=== PATIENT | female | born 1985 | race African-American/Black ===

== ENCOUNTER 2017-06-21 00:33 | Inpatient (IN) | payer MEDICAID, OTHER ==
[~2017-06-21] VITALS: Ht 165.1 cm; Wt 85.7 kg
--- NOTE | 2017-06-21 02:46 | NUR ---
31 Y/O FEMALE PLACED IN BED 12 C/O RIGHT LEG SWELLING. PT SEEN BY .
[2017-06-21] MEDS ORDERED: MORPHINE SULFATE INJ 2 MG/ML DISP.SYRIN IV ONE (03:00)
[2017-06-21] MEDS ORDERED: ONDANSETRON HCL/PF 4 MG/2 ML VIAL IVP ONE (03:00)
[2017-06-21] MEDS ORDERED: MORPHINE SULFATE INJ 4 MG/ML DISP.SYRIN ONE (03:08)
[2017-06-21] MEDS ORDERED: ONDANSETRON HCL/PF 4 MG/2 ML VIAL ONE (03:08)
[2017-06-21 03:13] LABS: BASOPHILS # (AUTO) 0.1 /CMM (0.0-0.2); BASOPHILS % (AUTO) 1.2 % (0.0-2.0); EOSINOPHILS # (AUTO) 0.6 /CMM (0.0-0.7); EOSINOPHILS % (AUTO) 11.2 % (0.0-6.0); HEMATOCRIT 21 % (33-45); HEMOGLOBIN 7.2 g/dL (11.5-14.8); LYMPHOCYTES # (AUTO) 0.9 /CMM (0.8-4.8); MEAN CORPUSCULAR HEMOGLOBIN 31 PG (26.0-33.0); MEAN CORPUSCULAR HGB CONC 34 g/dl (31.0-36.0); MEAN CORPUSCULAR VOLUME 91 fL (82-100); MONOCYTES # (AUTO) 0.6 /CMM (0.1-1.30); MONOCYTES % (AUTO) 11.5 % (2.0-12.0); NEUTROPHILS # (AUTO) 3.2 /CMM (1.8-8.9); NEUTROPHILS % (AUTO) 60.1 % (43.0-81.0); PLATELET COUNT (AUTO) 113 /CMM (150-450); RDW COEFFICIENT OF VARIATION 16.8 (11.5-15.0); WHITE BLOOD COUNT (AUTO) 5.4 K/uL (4.3-11.0)
[2017-06-21 03:29] LABS: INR 0.99 (0.87-1.13)
[2017-06-21 03:31] LABS: TROPONIN I < 0.017 ng/mL (0.00-0.056)
[2017-06-21 03:36] LABS: ALANINE AMINOTRANSFERASE 12 U/L (12-78); ALBUMIN 3.2 g/dL (3.4-5.0); ALKALINE PHOSPHATASE 62 U/L (46-116); ASPARTATE AMINOTRANSFERASE 16 U/L (15-37); B-TYPE NATRIURETIC PEPTIDE 6103 PG/ML (0-125); BILIRUBIN,TOTAL 0.2 mg/dL (0.2-1.0); CALCIUM, SERUM 8.1 mg/dL (8.5-10.1); CARBON DIOXIDE 24 mmol/L (21-32); CHLORIDE 106 mmol/L (98-107); GLUCOSE 88 mg/dL (74-106); POTASSIUM 5.3 mmol/L (3.5-5.1); SODIUM SERUM 140 mmol/L (136-145); TOTAL PROTEIN, SERUM 7.1 g/dL (6.4-8.2); UREA NITROGEN, BLOOD 71 mg/dL (7-18)
[2017-06-21 03:38] LABS: CREATININE 9.9 mg/dL (0.6-1.3)
[2017-06-21] MEDS ORDERED: HYDROMORPHONE 1 MG/1 ML DISP.SYRIN IV ONE (04:00)
[2017-06-21] MEDS ORDERED: HYDROMORPHONE INJ 2 MG/ML DISP.SYRIN ONE ×2 (04:03→10:52)
--- NOTE | 2017-06-21 04:09 | NUR ---
H/L PLACED IN RIGHT A/C. BLOOD DRAWN AND SENT. PT MEDICATED FOR PAIN
--- NOTE | 2017-06-21 04:10 | NUR ---
DURING US PROCEDUR, PT C/O PAIN IN RIGHT LEG. PT REMEDICATED WTH IV DILAUDID. WAIT A LITTLE BIT PRIOR TO RESUMING US.
--- NOTE | 2017-06-21 04:33 | NUR ---
PT OBTANED HOME MEDICATIONS FROM SO. PT IN RESTROOM OBTAINING A URINE SAMPLE FOR US.
[2017-06-21] MEDS ORDERED: hydrALAZINE HCL IV 20 MG VIAL ONE (04:57)
[2017-06-21] MEDS ORDERED: hydrALAZINE HCL IV 20 MG VIAL IV ONE (05:00)
[2017-06-21] MEDS ORDERED: hydrALAZINE HCL IV 20 MG VIAL IV PRN ×2 (06:00→12:00)
[2017-06-21] MEDS ORDERED: MAGNESIUM HYDROXIDE 30 ML UDC PO PRN ×2 (06:00→12:00)
[2017-06-21] MEDS ORDERED: ACETAMINOPHEN 325 MG TABLET PO PRN ×2 (06:00→12:00)
[2017-06-21] MEDS ORDERED: ONDANSETRON HCL/PF 4 MG/2 ML VIAL IVP PRN ×2 (06:00→18:00)
[2017-06-21] MEDS ORDERED: MAG HYDROX/AL HYDROX/SIMETH 30 ML UDC PO PRN ×2 (06:00→18:00)
[2017-06-21] MEDS ORDERED: ZOLPIDEM TARTRATE 5 MG TABLET PO PRN ×2 (06:00→12:00)
[2017-06-21] MEDS ORDERED: HYDROMORPHONE INJ 2 MG/ML DISP.SYRIN IV PRN (06:00)
[2017-06-21] MEDS ORDERED: Z GUARD REMEDY 2 OZ OINT TP PRN ×2 (06:00→12:00)
[2017-06-21] MEDS ORDERED: HYDROCODONE/APAP 5/325MG 1 EACH TABLET PO PRN ×2 (06:00→12:00)
[2017-06-21] MEDS ORDERED: TOPI200T PO (08:06)
[2017-06-21] MEDS ORDERED: HYDR-4077 PO (08:06)
[2017-06-21] MEDS ORDERED: ASPI-1152 PO (08:06)
[2017-06-21] MEDS ORDERED: LOSA25TA13 PO (08:06)
[2017-06-21] MEDS ORDERED: APIX2.5T PO (08:06)
[2017-06-21] MEDS ORDERED: CALC667C6 PO (08:06)
[2017-06-21] MEDS ORDERED: CARV25TA PO (08:06)
[2017-06-21] MEDS ORDERED: CITA20TA11 PO (08:06)
[2017-06-21] MEDS ORDERED: GABA-532 PO (08:06)
[2017-06-21] MEDS ORDERED: CLON0.2T PO (08:06)
--- NOTE | 2017-06-21 08:15 | NUR ---
BLOOD TRANSFUSION STARTED, BLOOD VERIFIED WITH 2 RN'S. CONSENT SIGNED AND PLACED IN CHART. VITALS TAKEN PRIOR TO ADMINISTRATION. REMAINS STABLE. WILL CONTINUE TO MONITOR.
[2017-06-21] MEDS ORDERED: FUROSEMIDE 40 MG/4 ML VIAL IV SCH ×2 (09:00→12:00)
--- NOTE | 2017-06-21 11:00 | NUR ---
BLOOD TRANSFUSION COMPLETED, NO ADVERSE REACTIONS NOTED. VITALS REMAIN STABLE. PAIN MEDICATION GIVEN PER MD ORDERS
[2017-06-21 11:45] VITALS: BP 146/87
--- NOTE | 2017-06-21 11:45 | NUR ---
REPORT GIVEN TO BRANDON [address]RE[address] FOR FRANSICO UPON ADMISSION.
--- NOTE | 2017-06-21 11:50 | NUR ---
PATIENT TRANSPORTED TO [facility] VIA ACLS PROTOCOL. RNBRANDON TO PROVIDE FRANSICO.
--- NOTE | 2017-06-21 12:00 | NUR ---
MS RN RECEIVED A NEW ADMISSION FROM ER, 31 YEAR OLD FEMALE CAME IN W/ CC OF RIGHT LEG PAIN, AWAKE,ALERT,ORIENTED X4,LUNGS ARE CLEAR,ABDOMEN SOFT,POSITIVE BOWEL SOUNDS, RIGHT LEG SWOLLEN. WILL MONITOR PATIENT.
[2017-06-21] MEDS ORDERED: NITROGLYCERIN PACKET 1 GM PACKET TOP SCH ×2 (13:00)
--- NOTE | 2017-06-21 13:00 | NUR ---
MS STREET LUNCH SERVED W/ DUE MEDS GIVEN,TOLERATED WELL.
--- NOTE | 2017-06-21 15:00 | NUR ---
MS RN WAS SEEN BY MIMI Juárez/ TIMOTEO TO DC DILAUDID, PATIENT IS CRYING, WANTS TO LEAVE AMA.
--- NOTE | 2017-06-21 15:30 | NUR ---
MS RN PATIENT WENT OUT FROM THE ROOM, READY TO GO HOME, REFUSED TO SIGN AMA PAPERS, ACCORDING TO HER, SHE DOES NOTE WANT TO GO AMA, BUT CARMELA TOLD HER THAT HE CAN NOT DO ANYTHING ABOUT HER CONDITION PER PATIENT.
--- NOTE | 2017-06-21 15:35 | NUR ---
MS RN PATIENT WENT HOME ACCOMPANIED BY FAMILY MEMBER, IV HEPLOCK REMOVED, WENT HOME WALKING, NO DISTRESS NOTED,ALL NEEDS ATTENDED.
[2017-06-21] MEDS ORDERED: HYDROCODONE/APAP 10/325MG 1 EA TABLET PO PRN (16:00)
[2017-06-21] MEDS ORDERED: APIXABAN 5 MG TABLET PO SCH (17:00)
== END 2017-06-21 15:49 | disposition left against medical advice (07) | DRG 197 ==
LOC: ER 00:38 → TELE1 12:18
PROVIDERS: ADMIT Internal Medicine; ATTEND Internal Medicine
DX: I82.411 Acute embolism and thrombosis of right femoral vein (principal); I13.2 Hypertensive heart and chronic kidney disease with heart failure and with stage 5 chronic kidney disease, or end stage renal disease; N18.6 End stage renal disease; D69.6 Thrombocytopenia, unspecified; E44.1 Mild protein-calorie malnutrition; Z91.19 Patient's noncompliance with other medical treatment and regimen; E66.9 Obesity, unspecified; G51.0 Bell's palsy; J45.909 Unspecified asthma, uncomplicated; Z76.5 Malingerer [conscious simulation]; Z86.718 Personal history of other venous thrombosis and embolism; Z99.2 Dependence on renal dialysis; Z88.1 Allergy status to other antibiotic agents; I50.9 Heart failure, unspecified; D63.8 Anemia in other chronic diseases classified elsewhere
CPT/HCPCS: 36415; 71045-TC; 80048-TC; 80076-TC; 83605-TC; 83880; 84484-TC; 85025-TC; 85730-TC; 86850-TC; 86921-TC; 87040-TC; 87081-TC; 93970-TC; A4606; J0360; J1170; J2270; J2405; J7050; P9016-BL; Z7610

== ENCOUNTER 2017-08-06 04:42 | Emergency (ER) | payer MEDICAID ==
[~2017-08-06] VITALS: Ht 165.1 cm; Wt 102.1 kg
[~2017-08-06 04:42] MED LIST: APIX2.5T PO; ASPI-1152 PO; CALC667C6 PO; CARV25TA PO; CITA20TA11 PO; CLON0.2T PO; GABA-532 PO; HYDR-4077 PO; LOSA25TA13 PO; TOPI200T PO
--- NOTE | 2017-08-06 05:00 | NUR ---
PT CAME FROM HOME C/O CP MIDSTERNAL/NONRADIATING X 2 DAYS, A/O X 3, BREATHING EVEN/UNLABORED, NSR ON INSTALLER INSPECTOR FINAL, SKIN WARM/DRY DIALYSIS PORT TO LLQ, MEAGAN WOUND INTACT/NONINFILTRATED,
[2017-08-06] MEDS ORDERED: ENOXAPARIN SODIUM 60 MG/0.6 ML DISP.SYRIN SQ ONE (05:30)
[2017-08-06] MEDS ORDERED: NITROGLYCERIN 0.4 MG/TAB BOTTLE SL ONE (05:30)
[2017-08-06] MEDS ORDERED: oxyCODONE/APAP (5/325 MG) 1 UDTAB TABLET PO ONE (05:30)
[2017-08-06] MEDS ORDERED: ONDANSETRON HCL/PF - ER 4 MG/2 ML VIAL IV ONE (05:30)
[2017-08-06] MEDS ORDERED: ASPIRIN 81 MG TAB.CHEW PO ONE (05:30)
[2017-08-06] MEDS ORDERED: ONDANSETRON HCL/PF 4 MG/2 ML VIAL ONE (05:30)
[2017-08-06] MEDS ORDERED: NITROGLYCERIN PACKET 1 GM PACKET TD ONE (05:30)
[2017-08-06] MEDS ORDERED: ENOXAPARIN SODIUM 80 MG/0.8 ML DISP.SYRIN SQ ONE (05:30)
[2017-08-06] MEDS ORDERED: ENOXAPARIN SODIUM 40 MG/0.4 ML DISP.SYRIN SQ ONE (05:30)
[2017-08-06] MEDS ORDERED: NITROGLYCERIN PACKET 1 GM PACKET ONE (05:31)
[2017-08-06] MEDS ORDERED: NITROGLYCERIN 0.4 MG/TAB BOTTLE ONE (05:31)
[2017-08-06] MEDS ORDERED: oxyCODONE/APAP (5/325 MG) 1 UDTAB TABLET ONE (05:31)
[2017-08-06] MEDS ORDERED: ASPIRIN 81 MG TAB.CHEW ONE (05:32)
[2017-08-06 05:40] LABS: BASOPHILS % (AUTO) 0.6 % (0.0-2.0); EOSINOPHILS # (AUTO) 0.7 /CMM (0.0-0.7); EOSINOPHILS % (AUTO) 8.8 % (0.0-6.0); HEMATOCRIT 22 % (33-45); HEMOGLOBIN 7.4 g/dL (11.5-14.8); LYMPHOCYTES % (AUTO) 13.2 % (20.0-44.0); MEAN CORPUSCULAR HEMOGLOBIN 31 PG (26.0-33.0); MEAN CORPUSCULAR HGB CONC 34 g/dl (31.0-36.0); MEAN CORPUSCULAR VOLUME 92 fL (82-100); MONOCYTES # (AUTO) 0.7 /CMM (0.1-1.30); MONOCYTES % (AUTO) 9.1 % (2.0-12.0); NEUTROPHILS # (AUTO) 5.2 /CMM (1.8-8.9); NEUTROPHILS % (AUTO) 68.3 % (43.0-81.0); PLATELET COUNT (AUTO) 152 /CMM (150-450); RDW COEFFICIENT OF VARIATION 16.6 (11.5-15.0); RED BLOOD CELL COUNT(AUTO) 2.42 MIL/uL (4.0-5.2); WHITE BLOOD COUNT (AUTO) 7.6 K/uL (4.3-11.0)
[2017-08-06 05:56] LABS: CARBON DIOXIDE 17 mmol/L (21-32); CHLORIDE 108 mmol/L (98-107); GLUCOSE 90 mg/dL (74-106); POTASSIUM 4.1 mmol/L (3.5-5.1); SODIUM SERUM 144 mmol/L (136-145)
[2017-08-06 05:58] LABS: CALCIUM, SERUM 5.8 mg/dL (8.5-10.1)
[2017-08-06 05:59] LABS: CREATININE 13.2 mg/dL (0.6-1.3); TROPONIN I < 0.017 ng/mL (0.00-0.056); UREA NITROGEN, BLOOD 111 mg/dL (7-18)
--- NOTE | 2017-08-06 06:01 | NUR ---
RECEIVED CRITICAL LAB VALUES FROM LAB. CLACIUM 5.8, BUN 111, CREATININE 13.2
[2017-08-06 06:05] LABS: ALANINE AMINOTRANSFERASE 30 U/L (12-78); ALBUMIN 3.4 g/dL (3.4-5.0); ALKALINE PHOSPHATASE 56 U/L (46-116); ASPARTATE AMINOTRANSFERASE 19 U/L (15-37); BILIRUBIN,DIRECT 0.1 mg/dL (0.0-0.2); BILIRUBIN,TOTAL 0.3 mg/dL (0.2-1.0)
[2017-08-06 06:06] LABS: B-TYPE NATRIURETIC PEPTIDE 11394 PG/ML (0-125); INR 1.02 (0.87-1.13); TOTAL PROTEIN, SERUM 7.6 g/dL (6.4-8.2)
--- NOTE | 2017-08-06 06:14 | NUR ---
US BEDSDIE AT THIS TIME
[2017-08-06 06:26] LABS: D-DIMER 2.99 mg/L(FEU (0.17-0.50)
--- NOTE | 2017-08-06 08:44 | NUR ---
PATIENT WAS PICKED UP BY CASSIDY FOR PROCEDURE
--- NOTE | 2017-08-06 09:37 | NUR ---
PT IS BACK TO ROOM. VSS
[2017-08-06 13:19] VITALS: BP 129/77
--- NOTE | 2017-08-06 13:19 | NUR ---
Patient discharged to home in stable condition. Written and verbal after care instructions given. Patient verbalizes understanding of instruction.IV removed. Catheter intact and site benign. Pressure and 4x4 applied to site. No bleeding noted.
== END 2017-08-06 13:19 | disposition home or self-care (01) ==
LOC: ER 04:43
DX: R07.9 Chest pain, unspecified (principal); G89.4 Chronic pain syndrome; I12.0 Hypertensive chronic kidney disease with stage 5 chronic kidney disease or end stage renal disease; N18.6 End stage renal disease; D64.9 Anemia, unspecified; J18.9 Pneumonia, unspecified organism; J45.909 Unspecified asthma, uncomplicated; Y95 Nosocomial condition; Z76.5 Malingerer [conscious simulation]; Z79.01 Long term (current) use of anticoagulants; Z79.82 Long term (current) use of aspirin; Z86.718 Personal history of other venous thrombosis and embolism; Z88.1 Allergy status to other antibiotic agents; Z99.2 Dependence on renal dialysis
CPT/HCPCS: 36415; 71045-TC; 78582; 80048-TC; 80076-TC; 83880; 84484-TC; 85025-TC; 85378-TC; 85730-TC; 93970-TC; 93971-TC; A4606; A9540; A9567; J1650; J2405; Z7610

== ENCOUNTER 2017-10-23 13:42 | Inpatient (IN) | payer MEDICAID ==
[~2017-10-23] VITALS: Ht 165.1 cm; Wt 101.6 kg
[~2017-10-23 13:42] MED LIST changes: -CITA20TA11 PO; +CITA20TA16 PO; -CLON0.2T PO
--- NOTE | 2017-10-23 13:45 | NUR ---
PRESENTS TO ER C/O DIFFUSE ABDOMINAL PAIN, RADIATES TO LOWER EXTREMITIES X 3 DAYS. A/OX 4, BREATHING EVEN AND UNLABORED. NO SOB, NAD, VITALS STABLE. SAFETY AND COMFORT MEASURES IN PLACE. AWAITING MD ORDERS.
--- NOTE | 2017-10-23 14:40 | NUR ---
NEW IV STARTED ON LEFT EJ, 20G, UNDER DR. TILLMAN SUPERVISION.
[2017-10-23 14:46] LABS: BASOPHILS % (AUTO) 0.2 % (0.0-2.0); EOSINOPHILS % (AUTO) 6.2 % (0.0-6.0); HEMATOCRIT 23 % (33-45); HEMOGLOBIN 7.8 g/dL (11.5-14.8); LYMPHOCYTES # (AUTO) 0.3 /CMM (0.8-4.8); LYMPHOCYTES % (AUTO) 5.4 % (20.0-44.0); MEAN CORPUSCULAR HGB CONC 34 g/dl (31.0-36.0); MEAN CORPUSCULAR VOLUME 89 fL (82-100); MONOCYTES # (AUTO) 0.5 /CMM (0.1-1.30); MONOCYTES % (AUTO) 9.8 % (2.0-12.0); NEUTROPHILS # (AUTO) 4.5 /CMM (1.8-8.9); NEUTROPHILS % (AUTO) 78.4 % (43.0-81.0); PLATELET COUNT (AUTO) 194 /CMM (150-450); RDW COEFFICIENT OF VARIATION 14.9 (11.5-15.0); WHITE BLOOD COUNT (AUTO) 5.6 K/uL (4.3-11.0)
[2017-10-23] MEDS ORDERED: HYDROCODONE/APAP 5/325MG 1 EACH TABLET ONE (14:48)
[2017-10-23 14:56] LABS: ALBUMIN 2.2 g/dL (3.4-5.0); BILIRUBIN,TOTAL 0.2 mg/dL (0.2-1.0); CALCIUM, SERUM 6.7 mg/dL (8.5-10.1); INR 0.91 (0.85-1.15); TOTAL PROTEIN, SERUM 6.1 g/dL (6.4-8.2)
[2017-10-23 14:59] LABS: CREATININE 15.1 mg/dL (0.6-1.3)
[2017-10-23] MEDS ORDERED: HYDROCODONE/APAP 5/325MG 1 EACH TABLET PO ONE (15:00)
--- NOTE | 2017-10-23 15:10 | NUR ---
US TECH AT BEDSIDE.
--- NOTE | 2017-10-23 15:47 | NUR ---
309-1, MED SURG, SHANKAR FRANZ
--- NOTE | 2017-10-23 16:21 | NUR ---
PATIENT TAKEN TO CT VIA STRETCHER.
--- NOTE | 2017-10-23 16:27 | NUR ---
REPORT GIVEN TO EMPERATRIZ STREET FOR FRANSICO UPON ADMISSION.
--- NOTE | 2017-10-23 16:33 | NUR ---
PATIENT RETURNED FROM CT IN STABLE CONDITION.
--- NOTE | 2017-10-23 17:27 | NUR ---
JESSICA PAGED, SHANKAR FRANZ AIR ROUTE CONTROLLER
--- NOTE | 2017-10-23 17:35 | NUR ---
PATIENT C/O 10/10 ABD PAIN AT THIS TIME. DR[address] FONTANEZ NOTIFIED, STATING NO NEW ORDERS AT THIS TIME.
[2017-10-23] MEDS ORDERED: MORPHINE SULFATE INJ 4 MG/ML DISP.SYRIN ONE (17:50)
[2017-10-23] MEDS: MORPHINE SULFATE INJ 4 MG/ML DISP.SYRIN IV PRN ×2 (17:55→22:07)
[2017-10-23] MEDS ORDERED: HYDROMORPHONE INJ 2 MG/ML DISP.SYRIN IV PRN (18:00)
[2017-10-23] MEDS ORDERED: CEFTRIAXONE 2 G in IV NS 0.9% 100 ML IV SCH (18:00)
[2017-10-23] MEDS ORDERED: ACETAMINOPHEN 325 MG TABLET PO PRN (18:00)
--- NOTE | 2017-10-23 18:00 | NUR ---
PATIENT TRANSPORTED TO [facility] VIA ACLS PROTOCOL. RNEMPERATRIZ TO PROVIDE FRANSICO.
--- NOTE | 2017-10-23 18:33 | NUR ---
MS RN NOTES PATIENT ARRIVED AT UNIT AT 1810 VIA GURNEY, REPORT RECEIVED FROM SAEID STREET. PATIENT ALERT AND ORIENTED, VERBALLY RESPONSIVE AND RESPONDS TO VERBAL AND TACTILE STIMULI. BREATHING EVEN AND UNLABORED. NO SOB OR ACUTE DISTRESS NOTED. PATIENT ABLE TO MAKE NEEDS KNOWN AND FOLLOW INSTRUCTIONS. PATIENT ORIENTED TO UNIT, STAFF, MEAL AND MEAL TIMES. IV SITE INTACT AND PATENT, WITH CEFTRIAXONE 2g FROM ER TO FINISH. SHANKAR FRANZ, MILLER FIRST AWARE OF PATIENT ADMISSION. WILL ENDORSE TO INCOMING SHIFT FOR FRANSICO. BED LOCKED AND IN LOW POSITION. BILATERAL UPPER SIDE RAILS UP AND LOCKED. CALL LIGHT WITHIN EASY REACH
[2017-10-23] MEDS: CALCIUM ACETATE 667 MG TABLET PO SCH (18:40)
[2017-10-23] MEDS ORDERED: APIXABAN 2.5 MG TABLET PO ONE (19:30)
--- NOTE | 2017-10-23 19:35 | NUR ---
MS RN NOTE RECEIVED PATIENT FROM DAY SHIFT FOR ADMISSION, PATIENT IS ALERT AND ORIENTEDX4, NO S/S OF RESPIRATORY DISTRESS AND COMPLAINS OF ABDOMINAL TENDERNESS 10/10. IV ON LEFT EJ IS PATENT AND INTACT, SL ONLY. PATIENT HAS SMALL MULTIPLE BUMPS ON HER BACK AND FACE, PICTURE IS TAKEN AND PUT IT IN A CHART. SRX2, BED IN LOW POSITION, CALL LIGHT WITHIN REACH, WILL CONTINUE TO MONITOR PATIENT.
[2017-10-23 20:00] VITALS: BP 169/105
[2017-10-23] MEDS: CEFTRIAXONE 1 G in IV NS 0.9% 50 ML IV SCH (20:10)
[2017-10-23] MEDS: TOPIRAMATE 100 MG TABLET PO SCH (20:33)
[2017-10-23] MEDS: CARVEDILOL 12.5 MG TABLET PO SCH (20:33)
[2017-10-23] MEDS: HYDROMORPHONE INJ 0.5 MG/0.5 ML SYRINGE IV PRN (20:34)
[2017-10-23] MEDS: ONDANSETRON HCL/PF 4 MG/2 ML VIAL IVP PRN (20:41)
[2017-10-23] MEDS ORDERED: MINOXIDIL (2.5MG) 2.5 MG TABLET PO PRN (23:00)
[2017-10-23] MEDS: ZOLPIDEM TARTRATE 5 MG TABLET PO PRN (23:53)
[2017-10-24] MEDS: HYDROMORPHONE INJ 0.5 MG/0.5 ML SYRINGE IV PRN ×6 (00:42→20:15)
--- NOTE | 2017-10-24 00:45 | NUR ---
MS RN NOTE PATIENT COMPLAINS OF PAIN ON HER ABDOMEN 10/10, DILAUDID 1MG IV GIVEN. WILL REASSESS EFFECTIVENESS.
[2017-10-24] MEDS: ONDANSETRON HCL/PF 4 MG/2 ML VIAL IVP PRN (02:45)
--- NOTE | 2017-10-24 06:32 | NUR ---
MS RN NOTE PATIENT IS RESTING IN BED COMFORTABLY, NO S/S OF RESPIRATORY DISTRESS AND STILL COMPLAINS OF MILD PAIN ON ABDOMEN. IV ON LEFT EJ IS PATENT AND INTACT, CHANGED DRESSING PER PATIENT'S REQUEST. WILL ENDORSE TO DAY SHIFT NURSE FOR FRANSICO.
[2017-10-24 06:53] LABS: WHITE BLOOD COUNT (AUTO) 3.7 K/uL (4.3-11.0)
[2017-10-24 06:54] LABS: BASOPHILS % (AUTO) 0.5 % (0.0-2.0); EOSINOPHILS % (AUTO) 8.7 % (0.0-6.0); HEMATOCRIT 21 % (33-45); HEMOGLOBIN 7.1 g/dL (11.5-14.8); LYMPHOCYTES # (AUTO) 0.4 /CMM (0.8-4.8); LYMPHOCYTES % (AUTO) 11.2 % (20.0-44.0); MEAN CORPUSCULAR HGB CONC 34 g/dl (31.0-36.0); MEAN CORPUSCULAR VOLUME 89 fL (82-100); MONOCYTES # (AUTO) 0.4 /CMM (0.1-1.30); MONOCYTES % (AUTO) 11.1 % (2.0-12.0); NEUTROPHILS # (AUTO) 2.5 /CMM (1.8-8.9); NEUTROPHILS % (AUTO) 68.5 % (43.0-81.0); PLATELET COUNT (AUTO) 176 /CMM (150-450); RDW COEFFICIENT OF VARIATION 15.6 (11.5-15.0); RED BLOOD CELL COUNT(AUTO) 2.36 MIL/uL (4.0-5.2)
--- NOTE | 2017-10-24 07:05 | NUR ---
REPORT RECEIVED AT THE BEDSIDE. PATIENT IS RESTING COMFORTABLY IN BED. NO SOB OR DISTRESS NOTED AT THIS TIME. PATIENT DOES NOT APPEAR TO BE IN PAIN, NO FACIAL GRIMACE NOTED. BED IN A LOW POSITION, CALL LIGHT WITHIN PATIENT REACH. WILL MONITOR. Addendum: 10/24/17 at 0730 by MARIA M ESPINO RN WILL FOLLOW UP WITH ON PT DIET
[2017-10-24 07:18] LABS: ALBUMIN 1.9 g/dL (3.4-5.0); BILIRUBIN,TOTAL 0.1 mg/dL (0.2-1.0); CALCIUM, SERUM 6.5 mg/dL (8.5-10.1); MAGNESIUM 1.6 mg/dL (1.8-2.4); POTASSIUM 4.1 mmol/L (3.5-5.1); TOTAL PROTEIN, SERUM 5.5 g/dL (6.4-8.2)
[2017-10-24 07:24] LABS: THYROID STIMULATING HORMONE 5.677 uIU/mL (0.358-3.74)
[2017-10-24 07:25] LABS: CREATININE 15.5 mg/dL (0.6-1.3)
[2017-10-24 08:00] VITALS: BP 148/97
[2017-10-24] MEDS: TOPIRAMATE 100 MG TABLET PO SCH ×2 (08:25→20:32)
[2017-10-24] MEDS: CALCIUM ACETATE 667 MG TABLET PO SCH ×3 (08:25→17:24)
[2017-10-24] MEDS: CARVEDILOL 12.5 MG TABLET PO SCH ×2 (08:26→20:32)
[2017-10-24] MEDS: hydrALAZINE HCL 50 MG TABLET PO SCH ×2 (08:26→17:24)
[2017-10-24] MEDS: CITALOPRAM HYDROBROMIDE 20 MG TABLET PO SCH (08:26)
[2017-10-24] MEDS: GABAPENTIN 100 MG CAPSULE PO SCH ×3 (08:26→17:24)
[2017-10-24] MEDS: LOSARTAN POTASSIUM 25 MG TABLET PO SCH (08:26)
[2017-10-24] MEDS: ASPIRIN EC 81 MG TABLET.DR PO SCH (08:26)
[2017-10-24] MEDS ORDERED: APIXABAN 2.5 MG TABLET PO SCH (09:00)
[2017-10-24] MEDS: Magnesium 1GM/D5W 100ML PREMIX 100 ML IV SCH ×2 (09:48→12:12)
--- NOTE | 2017-10-24 11:22 | NUR ---
SPOKE TO SHANTANU, DIALYSIS NURSE, ABOUT PT PARATAENIAL DIALYSIS. SHANTANU STATES THAT HE IS TRYING TO ACQUIRE THE CORRECT PORTS FOR THE DIALYSIS AND WILL INFORM WHEN READY. WILL MAKE SURE ABX ARE INFUSED BEFORE DIALYSIS NURSE ADMINISTERS DIALYSIS FLUID.
[2017-10-24] MEDS ORDERED: APIXABAN 2.5 MG TABLET PO ONE ×2 (12:00→17:00)
--- NOTE | 2017-10-24 13:57 | NUR ---
SPOKE TO DR FRANZ ABOUT WHAT HE WOULD LIKE TO HAVE FRO ABX IN THE DIALYSIS FLUID. SHANKAR GAVE VERBAL ORDER FOR TOBRAMYCIN 0.6MG/KG DAILY. CALLED AND SPOKE TO PHARMACY AND THEY STATE THAT DR PEREA HAS ALREADY GIVEN AN ORDER FOR GENTAMICIN. CALLED AND LEFT DR FRANZ A MESSAGE TO INFORM.
[2017-10-24 16:00] VITALS: BP 145/99
[2017-10-24] MEDS ORDERED: LACTULOSE 10 G/15 ML UDC (PYXIS) PO PRN (16:30)
--- NOTE | 2017-10-24 17:22 | NUR ---
CALLED SHANTANU TO FOLLOW UP ON TIMING FOR DIALYSIS FLUID ON PT. SHANTANU STATES THAT HE SHOULD HAVE IT SOON AND WILL DELIVER TO PHARMACY TO MIX ABX. INFORMED SHANTANU THAT PHARMACY WILL BE LEAVING AT 7PM.
[2017-10-24] MEDS: APIXABAN 5 MG PO SCH (17:24)
--- NOTE | 2017-10-24 18:00 | NUR ---
FIRST BAG OF PERITANIAL DIALYSIS INFUSED. WILL HAVE NIGHT NURSE FOLLOW UP ON DRAINAGE IN FOUR HOURS.
[2017-10-24] MEDS ORDERED: FEE PK DOSING 1 MIN EA MC ONE (18:18)
--- NOTE | 2017-10-24 18:48 | NUR ---
NO SIGNIFICANT CHANGES IN PATIENT CONDITION THROUGHOUT THE SHIFT. NO SOB OR DISTRESS NOTED AT THIS TIME. PATIENT REPORTS TOLERABLE PAIN. BED IN A LOW POSITION, CALL LIGHT WITHIN REACH. WILL ENDORSE TO EDIN FOR FRANSICO.
--- NOTE | 2017-10-24 19:30 | NUR ---
RN INITIAL NOTES: RECEIVED REPORT FROM MARIA M STREET, PT IN BED, DOZZING OFF, AROUSABLE, ON RA, RESPIRATION EVEN AND UNLABORED. IV ACCESS PATENT AND FLUSHING WELL, ON HL. PT A PERITONEAL DIALYSIS, DOING HER OWN P.D, SUPPLIES AT BED SIDE. ENCOURAGED PT TO LEAVE THE PORT CONNECTED TO DRAIN FOR 4HRS BUT PT REFUSING STATED SHE'S BEING DOING IT AT HOME THAT SHE WILL JUST DISCONNECT THE PORT ONCE PERITONEAL DIALYSIS IS FINISHED. EDUCATION PROVIDED TO THE PT. SON AT BED SIDE. SAFETY PRECAUTIONS FOR FALL INITAITED CALL LIGHT ION REACH, WILL CONTINUE TO MONITOR PT
--- NOTE | 2017-10-24 19:32 | NUR ---
rn notes: per day rn report, to drain after 4hrs which is 2200pm. and the next dialysate to administer at night scheduled at 2200, needs to stay for 4hrs, then drain at 0200am.
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
[2017-10-24 20:00] VITALS: BP 163/113
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
--- NOTE | 2017-10-24 20:10 | NUR ---
RN NOTES: RELAYED TO ORACLE IDENTITY MANAGEMENT CONSULTANT EPIC MD REGARDING SITUATION, PER MD "OKAY TO LEAVE". AMA PAPERS FILLED UP, BUT PT BECAME HESITANT TO SIGN THE AMA FORM, SHE STATED SHE IS WILLING TO STAY FOR TONIGHT.
--- NOTE | 2017-10-24 20:15 | NUR ---
PRN DILAUDID: PT C/O ABDOMINAL PAIN 01/22 REQUESTING FOR PAIN MEDICATION, PER MD JIMÉNEZ TO GIVE NOW, PRN DILAUDID 1MG IVP ADMINISTERED AT THIS TIME. WILL CONTINUE TO MONITOR AND REASSESS.
[2017-10-24 20:29] VITALS: BP 155/92
[2017-10-24 20:30] VITALS: BP 155/92
[2017-10-24] MEDS: CEFTRIAXONE 1 G in IV NS 0.9% 50 ML IV SCH (20:31)
--- NOTE | 2017-10-24 21:10 | NUR ---
RN NOTES: CONTACTED MD REGARDING PT'S REQUEST FOR ANTI-ANXIETY MEDICATION, PT STATED XANAX DOESNT WORK FOR HER. SPOKED WITH MANAGER TRADING EPIC , RELAYED THE SITUATION, PER MD HE DOESNT WANT TO GIVE ANY ORDERS GIVEN THE CONDITION OF HER KIDNEYS. RELAYED THIS TO THE PT. PT INITIALLY AGREE AND DECIDED TO JUST GET SLEEPING PILL
[2017-10-24] MEDS: ZOLPIDEM TARTRATE 5 MG TABLET PO PRN (21:23)
--- NOTE | 2017-10-24 21:23 | NUR ---
MAIN MESSINA: PT REQUEST FOR CALMING HER DOWN AND FOR INSOMNIA
--- NOTE | 2017-10-24 21:25 | NUR ---
RN NOTES: AFTER GIVING PT'S MEDICATION, BROCKIEN, SHE STATED IF SHE WONT BE ABLE TO SLEEP, SHE WILL LEAVE AMA, RN INFORMED PT THAT IT WILL BE HER CHOICE, LIKE WHAT I EDUCATE HER, THERE ARE CERTAIN MEDICATIONS THAT CANNOT BE GIVEN TO HER DUE TO HER KIDNEY PROBLEM. MD'S ARE BEING CAUTIONS IN GIVING/PRESCRIBING MEDICATION GIVEN HER CONDITION. EDUCATION PROVIDED TO PT REGARDING NEPHROTOXIC DRUGS. EDUCATION PROVIDED REGARDING STAYING IN THE HOSPITAL, IT WILL BENEFIT HER CONDITION GIVEN THE FACT SHE NEEDED PERITONEAL DIALYSIS, AND SUPPLIES ARE AVAILABLE HERE IN THE HOSPITAL.
[2017-10-24 22:00] VITALS: BP 145/97
[2017-10-24] MEDS ORDERED: TOBRAMYCIN IV SCH (22:00)
--- NOTE | 2017-10-24 22:00 | NUR ---
rn notes: reinforced pt regarding urine collection, placed hat on toilet bowl, to collect urine. instructed pt not to throw any urine when she voided, pt agree and understand
--- NOTE | 2017-10-24 22:30 | NUR ---
Administration of tobramycin inj peritoneal dialysis solution: upon scanning medication, its asking for dose rate, in ml/hr. assigned rn and propellant charge loader calculate the dose, rate will be 375ml/hr, however upon entering the said dose, it showing dose exceeded, we tried 1500ml, and its also showing dose exceeded, 0 is not acceptable, contacted ignition mechanic pharmacy and per phataloncy the 375ml/hr is the correct dose, relayed that it wasnt accepted by the emar computer and still showing dose exceeded. administered the medication, 5right's verified with [place] seamer nona. however unable to document in pt's emar because of problem with dose rate. drained for fluid is 1500ml, clear, no sediments noted, no foul smelling odor noted. Addendum: 10/25/17 at 0222 by MELISSA MEDINA RN correction of entry for drained: drained for previous peritoneal fluid administered during day shift is 1500ml, clear, no sediments noted, no foul smelling odor noted. for this tobramycin dialysate/PD dialysate, will be drained after 4hrs, which is equivalent to 0230am
--- NOTE | 2017-10-24 22:31 | NUR ---
Administration of tobramycin inj peritoneal dialysis solution: upon scanning medication, its asking for dose rate, in ml/hr. assigned rn and head charger calculate the dose, rate will be 375ml/hr, however upon entering the said dose, it showing dose exceeded, we tried 1500ml, and its also showing dose exceeded, 0 is not acceptable, contacted permastone applicator pharmacy and per phamarcy the 375ml/hr is the correct dose, relayed that it wasnt accepted by the emar computer and still showing dose exceeded. administered the medication, 5right's verified with yarn man nona. however unable to document in pt's emar because of problem with dose rate. drained for previous Peritoneal fluid is 1500ml, clear, no sediments noted, no foul smelling odor noted. this tobramycin PD bag solution, will be drained after 4hrs, which is 0230am.
--- NOTE | 2017-10-25 | NUR ---
RN NOTES: WENT TO CHECKED THE PT, PT FOUND TO BE SLEEPING, RESPIRATION EVEN AND UNLABORED, NO FACIAL GRIMACE NOTED
[2017-10-25] MEDS: HYDROMORPHONE INJ 0.5 MG/0.5 ML SYRINGE IV PRN ×5 (01:41→18:04)
--- NOTE | 2017-10-25 01:41 | NUR ---
prn dilaudid: pt called c/o 01/22 abdominal pain, requesting for dilaudid, prn dilaudid 1mg ivp administered to the pt at this time, brinda nxi and martine also at the bed side, witnessed that rn gave pain medication to the pt. will continue monitoring and reassessing for pt's pain
--- NOTE | 2017-10-25 02:24 | NUR ---
rn notes: notified pharmacy escalator constructor regarding issue with documentation of the dialysate infusion, per pharm escalator constructor, they will notify the pharmacy (in house/soh) in am regarding the problem.
--- NOTE | 2017-10-25 02:26 | NUR ---
rn notes: pt crying, and claimed her abdomen still hurting, notified md iron cutter, per md doesnt want to order another pain medication as pt already receiving dilaudid, offered warm blanket to the pt, and have pt sit up, also informed pt that abdomen ct shows lots of stool in colon. asked when was the last bm of pt, she stated yesterday morning, and claimed she's passing gas. upon assessment, noted pt's abdomen to be soft with active bowel sound noted upon auscultation.
--- NOTE | 2017-10-25 02:30 | NUR ---
rn notes: pt PD drain is 1300ml.
--- NOTE | 2017-10-25 04:00 | NUR ---
RN NOTES: PT VOIDED BUT UNABLE TO COLLECRT URINEM, SHE REMOVED THE HAT IN THE TOILET BOWL, HAT WAS SEEN IN THE TRASH BIN. PLACED A NEW HAT IN THE TOILET BOWL, AND INFORMED PT THAT URINE IS NEEDED TO BE SEND TO LABORATORY FOR TESTING.
--- NOTE | 2017-10-25 05:50 | NUR ---
PRN DILAUDID: PT C/O 01/22 ABDOMINAL PAIN REQUESTING FOR DILAUDID, PRN DILAUDID ADMINISTERED AT THIS TIME, WILL CONTINUE TO MONITOR AND REASSESS
[2017-10-25 06:18] LABS: BASOPHILS % (AUTO) 0.7 % (0.0-2.0); EOSINOPHILS % (AUTO) 10.4 % (0.0-6.0); HEMATOCRIT 23 % (33-45); HEMOGLOBIN 7.7 g/dL (11.5-14.8); LYMPHOCYTES # (AUTO) 0.4 /CMM (0.8-4.8); LYMPHOCYTES % (AUTO) 10.1 % (20.0-44.0); MEAN CORPUSCULAR HGB CONC 34 g/dl (31.0-36.0); MEAN CORPUSCULAR VOLUME 90 fL (82-100); MONOCYTES # (AUTO) 0.4 /CMM (0.1-1.30); MONOCYTES % (AUTO) 10.5 % (2.0-12.0); NEUTROPHILS # (AUTO) 2.9 /CMM (1.8-8.9); NEUTROPHILS % (AUTO) 68.3 % (43.0-81.0); PLATELET COUNT (AUTO) 227 /CMM (150-450); RDW COEFFICIENT OF VARIATION 15.6 (11.5-15.0); RED BLOOD CELL COUNT(AUTO) 2.56 MIL/uL (4.0-5.2); WHITE BLOOD COUNT (AUTO) 4.2 K/uL (4.3-11.0)
[2017-10-25 06:50] LABS: CALCIUM, SERUM 6.3 mg/dL (8.5-10.1); MAGNESIUM 1.8 mg/dL (1.8-2.4); PHOSPHORUS 6.3 mg/dL (2.5-4.9); POTASSIUM 4.1 mmol/L (3.5-5.1)
[2017-10-25 06:54] LABS: CREATININE 15.7 mg/dL (0.6-1.3)
--- NOTE | 2017-10-25 06:54 | NUR ---
rn closing notes: pt in bed, awake, last pain medication given at 0540. LLQ peritoneal dialysis catheter remains in placed.left ej iv access patent and flushingn well, on hl. safety precautions for fall remains engaged, call light in reach, will endorse to day rn for basil.
--- NOTE | 2017-10-25 07:01 | NUR ---
rn notes: contacted pharmacy, talked to austin, informed about the problem with documentation that dialysate was infused/given, and pt does it by herself, explained what has been the problem, and per austin he said they will fix how the order was written. made aware that pt is doing peritoneal dialysis.
--- NOTE | 2017-10-25 07:05 | NUR ---
REPORT RECEIVED AT THE BEDSIDE. PATIENT IS RESTING COMFORTABLY IN BED. NO SOB OR DISTRESS NOTED AT THIS TIME. PATIENT REPORTS TOLERABLE PAIN AT THIS TIME. BED IN A LOW POSITION, CALL LIGHT WITHIN REACH. WILL MONITOR.
[2017-10-25 08:00] VITALS: BP 194/97
[2017-10-25] MEDS ORDERED: TOBRAMYCIN IV SCH (08:10)
[2017-10-25] MEDS: LOSARTAN POTASSIUM 25 MG TABLET PO SCH (08:10)
[2017-10-25] MEDS: TOPIRAMATE 100 MG TABLET PO SCH ×2 (08:10→20:27)
[2017-10-25] MEDS: CITALOPRAM HYDROBROMIDE 20 MG TABLET PO SCH (08:10)
[2017-10-25] MEDS: GABAPENTIN 100 MG CAPSULE PO SCH ×3 (08:10→17:10)
[2017-10-25] MEDS: CARVEDILOL 12.5 MG TABLET PO SCH ×2 (08:10→20:27)
[2017-10-25] MEDS: CALCIUM ACETATE 667 MG TABLET PO SCH ×3 (08:10→17:10)
[2017-10-25] MEDS: APIXABAN 5 MG PO SCH ×2 (08:10→17:10)
[2017-10-25] MEDS: hydrALAZINE HCL 50 MG TABLET PO SCH ×2 (08:10→17:11)
[2017-10-25] MEDS: ASPIRIN EC 81 MG TABLET.DR PO SCH (08:10)
--- NOTE | 2017-10-25 08:34 | NUR ---
RECEIVED CALL FROM LAB THAT PT TOBRAMYCIN LEVEL IS 2.2. WILL INFORM MD WHEN DOCTORS LIST IS AVAILABLE. Addendum: 10/25/17 at 0837 by MARIA M ESPINO RN CALLED AND SPOKE TO SHANKAR IN PHARMACY. HE STATES THAT THE LEVEL IS FINE LONG IT IS LESS THAN 5.
--- NOTE | 2017-10-25 12:43 | NUR ---
DR PEREA ON FLOOR. CLARIFIED WITH MD THAT PDIALYSIS IS OK TO DO EVERY 4 HOURS WHILE AWAKE, AND ABX IN DIALYSIS FLUID Q24H.
[2017-10-25 16:00] VITALS: BP 169/110
[2017-10-25] MEDS: ONDANSETRON HCL/PF 4 MG/2 ML VIAL IVP PRN (18:55)
--- NOTE | 2017-10-25 19:30 | NUR ---
MS/RN OPENING NOTES PT RECEIVED AWAKE, A/OX3. ON ROOM AIR, BREATHING EVEN AND UNLABORED. DENIES SOB/PAIN AT THIS TIME. LLQ PERITONEAL DIALYSIS CATHETER NOTED. LEJ IV PATENT AND INTACT. BED IN LOW/LOCKED POSITION WITH CALL LIGHT IN REACH. SIDE RAILS UPX2. WILL CONTINUE TO MONITOR
[2017-10-25 20:00] VITALS: BP 170/103
[2017-10-25 20:19] VITALS: BP 170/103
[2017-10-25] MEDS: CEFTRIAXONE 1 G in IV NS 0.9% 50 ML IV SCH (20:27)
[2017-10-25] MEDS ORDERED: TOBRAMYCIN 80 MG/2 ML VIAL INH ONE (22:00)
[2017-10-25] MEDS: TOBRAMYCIN IV SCH (22:47)
--- NOTE | 2017-10-25 23:00 | NUR ---
MS/RN NOTES TOBRAMYCIN BAG INFUSED. TO DRAIN AFTER 4 HOURS WHICH WOULD BE 0300.
--- NOTE | 2017-10-25 23:04 | NUR ---
MS/RN NOTES PERITONEAL DIALYSIS OUTPUT NOTED TO BE 1350 Addendum: 10/26/17 at 0746 by HAIDER ZHAO RN OUTPUT FROM DIASYLATE ADMINISTERED AT 1800 BY DAY SHIFT.
--- NOTE | 2017-10-26 02:41 | NUR ---
MS/RN NOTES JUST NOTICED THAT DILAUDID 1MG IV ADMINISTERED AT APPROX 2205 WAS NOT SAVED ON EMAR. RECALL COMPUTER DYING. MARKETING SERVICES VICE PRESIDENT MADE AWARE. WILL NOTIFY PHARMACY IN AM. Addendum: 10/26/17 at 0324 by HAIDER ZHAO RN I RECALL TIME OF ADMINISTRATION BECAUSE IT WAS 4 HOURS AFTER PREVIOUS ADMINISTRATION AT 1804
--- NOTE | 2017-10-26 03:30 | NUR ---
MS/RN NOTES PERITONEAL DIALYSIS DRAINED FROM PT. OUTPUT NOTED TO BE 1500ML, CLEAR YELLOW.
[2017-10-26] MEDS: HYDROMORPHONE INJ 0.5 MG/0.5 ML SYRINGE IV PRN ×7 (04:12→23:05)
[2017-10-26] MEDS: ONDANSETRON HCL/PF 4 MG/2 ML VIAL IVP PRN ×2 (04:19→13:20)
--- NOTE | 2017-10-26 04:21 | NUR ---
MS/RN NOTES PT C/O ABDOMINAL PAIN 02/22. RP=[id number], HR=[id number] ADMINISTERED PRN DILAUDID ORDERED. WILL MONITOR FOR EFFECTIVENESS. ADMINISTERED PRN ZOFRAN ORDERED.
[2017-10-26 06:46] LABS: BASOPHILS % (AUTO) 0.4 % (0.0-2.0); HEMATOCRIT 23 % (33-45); HEMOGLOBIN 7.9 g/dL (11.5-14.8); LYMPHOCYTES # (AUTO) 0.5 /CMM (0.8-4.8); LYMPHOCYTES % (AUTO) 10.4 % (20.0-44.0); MEAN CORPUSCULAR HGB CONC 34 g/dl (31.0-36.0); MEAN CORPUSCULAR VOLUME 89 fL (82-100); MONOCYTES # (AUTO) 0.4 /CMM (0.1-1.30); NEUTROPHILS # (AUTO) 3.1 /CMM (1.8-8.9); NEUTROPHILS % (AUTO) 70.2 % (43.0-81.0); PLATELET COUNT (AUTO) 220 /CMM (150-450); RDW COEFFICIENT OF VARIATION 15.4 (11.5-15.0); RED BLOOD CELL COUNT(AUTO) 2.59 MIL/uL (4.0-5.2); WHITE BLOOD COUNT (AUTO) 4.5 K/uL (4.3-11.0)
--- NOTE | 2017-10-26 07:15 | NUR ---
MS/RN CLOSING NOTES PT AWAKE, SITTING UP IN BED. ON ROOM AIR, BREATHING EVEN AND UNLABORED. IV TO LEJ PATENT AND INTACT. LLQ PERITONEAL DIALYSIS CATHETER INTACT. ADMINISTERED 2200 TOBRAMYCIN DIALYSATE ORDERED. OUTPUT WAS 1500CC. PT TOLERATED WELL. ADMINISTERED PRN DILAUDID AND ZOFRAN ORDERED. DENIES PAIN, N/V AT THIS TIME. KEPT PT COMFORTABLE DURING SHIFT. ALL NEEDS MET. SLEPT WELL DURING NIGHT. BED REMAINS IN LOW/LOCKED POSITION WITH CALL LIGHT IN REACH. SIDE RAILS XUP2. ENDORSED TO DAY SHIFT RN FRANSICO.
[2017-10-26 07:16] LABS: CALCIUM, SERUM 6.2 mg/dL (8.5-10.1); MAGNESIUM 1.5 mg/dL (1.8-2.4); PHOSPHORUS 5.6 mg/dL (2.5-4.9); POTASSIUM 3.9 mmol/L (3.5-5.1)
[2017-10-26 07:18] LABS: CREATININE 14.5 mg/dL (0.6-1.3)
--- NOTE | 2017-10-26 07:29 | NUR ---
RN OPENING NOTES RECEIVED PATIENT AT THE BEDSIDE. PATIENT IS RESTING COMFORTABLY IN BED, A/OX3. NO SOB OR DISTRESS NOTED AT THIS TIME. PATIENT REPORTS TOLERABLE PAIN AT THIS TIME. IV SITE INTACT AND PATENT. KEPT PATIENT SAFE AND COMFORTABLE. BED IN A LOW POSITION, CALL LIGHT WITHIN REACH. WILL MONITOR ACCORDINGLY
[2017-10-26 07:55] VITALS: BP 132/81
[2017-10-26 08:00] VITALS: BP 132/81
[2017-10-26] MEDS: CALCIUM ACETATE 667 MG TABLET PO SCH ×3 (08:34→17:10)
[2017-10-26] MEDS: TOPIRAMATE 100 MG TABLET PO SCH ×2 (08:34→20:13)
[2017-10-26] MEDS: LOSARTAN POTASSIUM 25 MG TABLET PO SCH (08:35)
[2017-10-26] MEDS: GABAPENTIN 100 MG CAPSULE PO SCH ×3 (08:35→16:32)
[2017-10-26] MEDS: ASPIRIN EC 81 MG TABLET.DR PO SCH (08:35)
[2017-10-26] MEDS: CITALOPRAM HYDROBROMIDE 20 MG TABLET PO SCH (08:35)
[2017-10-26] MEDS: CARVEDILOL 12.5 MG TABLET PO SCH ×2 (08:38→20:13)
[2017-10-26] MEDS: APIXABAN 5 MG PO SCH ×2 (08:43→16:38)
[2017-10-26] MEDS: hydrALAZINE HCL 50 MG TABLET PO SCH ×2 (09:12→16:37)
--- NOTE | 2017-10-26 09:54 | NUR ---
RN NOTES PATIENT OR SHANTANU,DIALYSIS NURSE WILL DO THE PERITONEAL DIALYSIS.
[2017-10-26] MEDS: Magnesium 1GM/D5W 100ML PREMIX 100 ML IV SCH ×2 (11:34→12:35)
--- NOTE | 2017-10-26 11:43 | NUR ---
YENIFER NOTES PATIENT STARTED PERITONEAL DIALYSIS BY HERSELF. WILL MONITOR ACCORDINGLY. Addendum: 10/26/17 at 1144 by CHRIS FLORES DIALYSATE AMOUNT 1,500 ML
[2017-10-26] MEDS ORDERED: Calcium Gluconate 1GM/10ML 4.65 MEQ in IV NS 0.9% 50 ML IV ONE (12:00)
--- NOTE | 2017-10-26 15:43 | NUR ---
RN NOTES PERITONEAL DIALYSIS OUTPUT IS 1,300 ML. PATIENT TOLERATED WELL.
[2017-10-26 16:00] VITALS: BP 163/100
[2017-10-26] MEDS ORDERED: METOCLOPRAMIDE HCL 10 MG/2 ML VIAL IV PRN (16:00)
[2017-10-26 17:30] VITALS: BP 151/90
--- NOTE | 2017-10-26 18:13 | NUR ---
RN NOTES PERITONEAL DIALYSIS STARTED BY PATIENT, DIALYSATE INPUT 1,500 ML. WILL MONIOTR ACCORDINGLY.
--- NOTE | 2017-10-26 19:15 | NUR ---
MS RN OPENING NOTES RECEIVED PT SITTING UPRIGHT IN CHAIR NEXT TO BED. AWAKE AND RESPONSIVE. AFEBRILE, RESPIRATIONS ARE EVEN AND UNLABORED, NOT IN ANY ACUTE DISTRESS NOTED. DENIES ANY CHEST PAIN, HEADACHE, N/V, SOB. IV SITE INTACT, NO INFILTRATION NOTED. DRESSING KEPT CLEAN AND DRY. SAFETY MEASURES ARE IN PLACE. WILL CONTINUE TO MONITOR PT THROUGHOUT SHIFT.
--- NOTE | 2017-10-26 19:22 | NUR ---
RN CLOSING NOTES PATIENT IN STABLE CONDITION. ALL NEEDS ATTENDED AND PROVIDED. KEPT PATIENT SAFE AND COMFORTABLE. BED IN LOW/LOCKED POSITION, SIDERAILS UPX2, CALL LIGHT IN REACH. ENDORSED TO NIGHT RN FOR FRANSICO.
--- NOTE | 2017-10-26 19:47 | NUR ---
MS RN NOTES PT'S BLOOD PRESSURE NOTED 187/100. ADMINISTERED PRN MINOXIDIL. PUPILS ARE REACTIVE TO LIGHT. NOTED WITH LEFT FACIAL DROOPING. 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 PT DENIES ANY HEADACHE, CHEST PAIN, SOB AT THIS TIME. WILL CONTINUE TO MONITOR.
[2017-10-26 20:02] VITALS: BP 187/119
[2017-10-26] MEDS: CEFTRIAXONE 1 G in IV NS 0.9% 50 ML IV SCH (20:13)
[2017-10-26] MEDS: TOBRAMYCIN IV SCH (22:41)
--- NOTE | 2017-10-26 23:35 | NUR ---
MS RN NOTES PT ASSIGNED TO ANOTHER NURSE. PT IS CURRENTLY STABLE AT THIS TIME, NOT IN ANY APPARENT DISTRESS NOTED. IV INTACT, NO INFILTRATION NOTED. DRESSING KEPT CLEAN AND DRY. REPORT GIVEN TO YENIFER PRINCE FOR CONTINUITY OF CARE.
--- NOTE | 2017-10-26 23:59 | NUR ---
MS YENIFER NOTES: RECEIVED PT FROM RNSEAN PT IS SITTING UP IN BED. PT IS A/OX4. PT IS AWAKE AND IS ON ROOM AIR. SWELLING NOTED ON BLE. PT HAS IV ON L EJ#20G AND IS PATENT AND INTACT. CURRENTLY S/L. AT 0315, PD IS TO BEGIN. PT HAS LLQ PERITONEAL HD ACCESS. CALL LIGHT WITHIN PT'S REACH. BED KEPT IN LOW, LOCKED POSITION, AND SIDE RAILS X 2UP. WILL CONTINUE TO MONITOR PT. Addendum: 10/27/17 at 0347 by DOTTIE EDWARDS RN PER ENDORSEMENT, INTAKE OF TOBRAMYCIN WAS 1500 AT 2241. POST 4 HOURS, WILL MONITOR OUTPUT.
--- NOTE | 2017-10-27 00:14 | NUR ---
MS RN NOTES: DR. NALINI Joseph ON FLOOR. INFORMED HIM THAT PT HAS GENERALIZED ITCHING ALL OVER HER BODY. NO NEW ORDERS AT THIS TIME.
[2017-10-27 02:00] VITALS: BP 159/109
[2017-10-27] MEDS: HYDROMORPHONE INJ 0.5 MG/0.5 ML SYRINGE IV PRN ×3 (02:14→16:53)
--- NOTE | 2017-10-27 02:14 | NUR ---
MS RN NOTES: PT IS COMPLAINING OF GENERALIZED PAIN AND STOMACH PAIN 01/22. PT WAS ADMINISTERED DILAUDID. WILL CONTINUE TO MONITOR PT.
--- NOTE | 2017-10-27 03:15 | NUR ---
MS RN NOTES: OUTPUT FROM DIALYSIS WAS 825ML. STARTED NEW BAG.
--- NOTE | 2017-10-27 03:30 | NUR ---
MS STREET NOTES: INTAKE WAS 1500ML FROM TOBRAMYCIN BAG. Addendum: 10/27/17 at 0355 by DOTTIE EDWARDS RN THIS IS TO DRAIN FOR 4 HOURS. WILL MONITOR OUTPUT AROUND 0730AM.
[2017-10-27 04:23] VITALS: BP 155/86
--- NOTE | 2017-10-27 06:22 | NUR ---
MS RN CLOSING NOTES: ALL NEEDS WERE ATTENDED AND ANTICIPATED FOR. ASLEEP AT THIS TIME AND ON ROOM AIR AND IN NO DISTRESS. PT ON SEMI-GOMEZ'S POSITION. PT HAS PD ACCESS AND IS CURRENTLY CONNECTED TO TOBRAMYCIN BAG AND OUTPUT TO BE DRAINED AROUND 0730AM. PT HAS IV ON L EJ AND IS PATENT AND INTACT. PT CURRENTLY S/L. CALL LIGHT WITHIN PT'S REACH. BED KEPT IN LOW, LOCKED POSITION, AND SIDE RAILS X 2UP. WILL ENDORSE TO AM NURSE FOR FRANSICO.
[2017-10-27 06:28] LABS: BASOPHILS % (AUTO) 0.7 % (0.0-2.0); EOSINOPHILS % (AUTO) 9.7 % (0.0-6.0); HEMATOCRIT 25 % (33-45); HEMOGLOBIN 8.1 g/dL (11.5-14.8); LYMPHOCYTES # (AUTO) 0.6 /CMM (0.8-4.8); MEAN CORPUSCULAR HGB CONC 33 g/dl (31.0-36.0); MEAN CORPUSCULAR VOLUME 91 fL (82-100); MONOCYTES # (AUTO) 0.6 /CMM (0.1-1.30); MONOCYTES % (AUTO) 13.6 % (2.0-12.0); NEUTROPHILS # (AUTO) 2.6 /CMM (1.8-8.9); PLATELET COUNT (AUTO) 227 /CMM (150-450); RDW COEFFICIENT OF VARIATION 15.6 (11.5-15.0); WHITE BLOOD COUNT (AUTO) 4.2 K/uL (4.3-11.0)
[2017-10-27 07:00] VITALS: BP 140/83
[2017-10-27 07:00] LABS: CALCIUM, SERUM 6.7 mg/dL (8.5-10.1); MAGNESIUM 1.8 mg/dL (1.8-2.4); PHOSPHORUS 5.4 mg/dL (2.5-4.9); POTASSIUM 3.6 mmol/L (3.5-5.1)
[2017-10-27 08:00] VITALS: BP 141/79
--- NOTE | 2017-10-27 08:15 | NUR ---
MS RN RECEIVED ON BED, AWAKE,ALERT,ORIENTED X3,NOT IN ANY FORM OF DISTRESS, RESPIRATION EVEN AND UNLABORED,NO SOB NOTED, LUNGS ARE CLEAR,ABDOMEN SOFT,POSITIVE BOWEL SOUNDS, DENIES PAIN AT THIS TIME, PATIENT W/ CAPD ON, DRAINED ALREADY, MANUALLY DOING IT BY HERSELF,NOTED TO HAVE SEVERE BILATERAL LOWER EXTREMITIES EDEMA,ALL NEEDS ATTENDED.
--- NOTE | 2017-10-27 09:30 | NUR ---
MS STREET BREAKFAST SERVED,DUE MEDS GIVEN,TOLERATED WELL.
[2017-10-27] MEDS: GABAPENTIN 100 MG CAPSULE PO SCH ×3 (09:38→16:52)
[2017-10-27] MEDS: TOPIRAMATE 100 MG TABLET PO SCH (09:38)
[2017-10-27] MEDS: CALCIUM ACETATE 667 MG TABLET PO SCH ×3 (09:38→17:50)
[2017-10-27] MEDS: LOSARTAN POTASSIUM 25 MG TABLET PO SCH (09:39)
[2017-10-27] MEDS: hydrALAZINE HCL 50 MG TABLET PO SCH ×2 (09:40→16:52)
[2017-10-27] MEDS: ASPIRIN EC 81 MG TABLET.DR PO SCH (09:41)
[2017-10-27] MEDS: CITALOPRAM HYDROBROMIDE 20 MG TABLET PO SCH (09:41)
[2017-10-27] MEDS: CARVEDILOL 12.5 MG TABLET PO SCH (09:41)
[2017-10-27] MEDS: APIXABAN 5 MG PO SCH ×2 (09:45→17:50)
[2017-10-27] MEDS ORDERED: diphenhydrAMINE HCL 50 MG/ML VIAL IV PRN (10:00)
--- NOTE | 2017-10-27 11:00 | NUR ---
MS RN WAS SEEN BY SHANKAR FRANZ W/ ERENDIRA MADE AND CARRIED OUT.
--- NOTE | 2017-10-27 15:00 | NUR ---
ms rn patient on her second bag of pd,tolerating well.
[2017-10-27 16:00] VITALS: BP 124/81
[2017-10-27 16:52] VITALS: BP 124/81
--- NOTE | 2017-10-27 18:30 | NUR ---
ms rn patient wants to go ama, explain the risk of going ama, but insited due to partner's birthday today.
--- NOTE | 2017-10-27 19:05 | NUR ---
ms rn patient went ama accompanied by partner, charles was notified by charge nurse.
== END 2017-10-27 19:02 | disposition left against medical advice (07) | DRG 466 ==
LOC: ER 13:43 → MED 17:40
PROVIDERS: ADMIT Nurse Practitioner Acute Care; ATTEND Nurse Practitioner Acute Care
DX: T85.71XA Infection and inflammatory reaction due to peritoneal dialysis catheter, initial encounter (principal); K65.9 Peritonitis, unspecified; N18.6 End stage renal disease; G62.9 Polyneuropathy, unspecified; I13.11 Hypertensive heart and chronic kidney disease without heart failure, with stage 5 chronic kidney disease, or end stage renal disease; Z99.2 Dependence on renal dialysis; G51.0 Bell's palsy; J45.909 Unspecified asthma, uncomplicated; Z86.718 Personal history of other venous thrombosis and embolism; Z79.899 Other long term (current) drug therapy; Z79.82 Long term (current) use of aspirin; Z79.01 Long term (current) use of anticoagulants; Z88.1 Allergy status to other antibiotic agents; D63.8 Anemia in other chronic diseases classified elsewhere; K59.00 Constipation, unspecified; M85.9 Disorder of bone density and structure, unspecified; Y84.9 Medical procedure, unspecified as the cause of abnormal reaction of the patient, or of later complication, without mention of misadventure at the time of the procedure; Y92.129 Unspecified place in nursing home as the place of occurrence of the external cause
CPT/HCPCS: 36415; 71045-TC; 80048-TC; 80053-TC; 80061-TC; 80076-TC; 83605-TC; 83690-TC; 83735-TC; 84100-TC; 84443-TC; 84703-TC; 85025-TC; 85730-TC; 87040-TC; 87070-TC; 87081-TC; 89051-TC; 90935-TC; 93970-TC; A4216; A4606; A6402; J0610; J0696; J1200; J2270; J2405; J3260; J3475; J7030; J7050; Z7610

== ENCOUNTER 2017-12-31 06:56 | Emergency (ER) | payer MEDICAID ==
[~2017-12-31] VITALS: Ht 165.1 cm; Wt 98.0 kg
--- NOTE | 2017-12-31 07:10 | NUR ---
AAOX3, c/o LOWER ABD PAIN, SWELLING W/ BLE SWELLING, NO N/V, MISSED DIALYSIS X LAST COUPLE DAYS. RR IS EVEN AND UNLABORED WITH NAD NOTED. SKIN IS WARM AND DRY. PLACED ON THE MONITOR. DR AGAPITO MENDOZA FOR EVAL.
[2017-12-31 08:04] LABS: BASOPHILS % (AUTO) 0.3 % (0.0-2.0); EOSINOPHILS % (AUTO) 1.2 % (0.0-6.0); HEMATOCRIT 27 % (33-45); HEMOGLOBIN 8.6 g/dL (11.5-14.8); LYMPHOCYTES # (AUTO) 0.3 /CMM (0.8-4.8); MEAN CORPUSCULAR HEMOGLOBIN 30 PG (26.0-33.0); MEAN CORPUSCULAR HGB CONC 32 g/dl (31.0-36.0); MEAN CORPUSCULAR VOLUME 93 fL (82-100); MONOCYTES # (AUTO) 0.3 /CMM (0.1-1.30); MONOCYTES % (AUTO) 8.9 % (2.0-12.0); NEUTROPHILS # (AUTO) 3.1 /CMM (1.8-8.9); NEUTROPHILS % (AUTO) 80.6 % (43.0-81.0); PLATELET COUNT (AUTO) 115 /CMM (150-450); RDW COEFFICIENT OF VARIATION 15.3 (11.5-15.0); RED BLOOD CELL COUNT(AUTO) 2.88 MIL/uL (4.0-5.2); WHITE BLOOD COUNT (AUTO) 3.9 K/uL (4.3-11.0)
--- NOTE | 2017-12-31 08:18 | NUR ---
XRAY IN PROGRESS AT BS.
[2017-12-31 08:19] LABS: ALANINE AMINOTRANSFERASE 25 U/L (12-78); ALBUMIN 2.8 g/dL (3.4-5.0); ALKALINE PHOSPHATASE 86 U/L (46-116); ASPARTATE AMINOTRANSFERASE 29 U/L (15-37); BILIRUBIN,DIRECT 0.1 mg/dL (0.0-0.2); BILIRUBIN,TOTAL 0.3 mg/dL (0.2-1.0); CALCIUM, SERUM 6.3 mg/dL (8.5-10.1); CARBON DIOXIDE 24 mmol/L (21-32); CHLORIDE 102 mmol/L (98-107); GLUCOSE 92 mg/dL (74-106); POTASSIUM 3.8 mmol/L (3.5-5.1); SODIUM SERUM 139 mmol/L (136-145); TOTAL PROTEIN, SERUM 6.7 g/dL (6.4-8.2); UREA NITROGEN, BLOOD 75 mg/dL (7-18)
[2017-12-31 08:21] LABS: TROPONIN I < 0.017 ng/mL (0.00-0.056)
[2017-12-31 08:22] LABS: CREATININE 14.9 mg/dL (0.6-1.3)
[2017-12-31 08:26] LABS: INR 1.03 (0.87-1.13)
[2017-12-31] MEDS ORDERED: CLONIDINE HCL 0.1 MG TABLET ONE (09:08)
[2017-12-31] MEDS ORDERED: CLONIDINE HCL 0.1 MG TABLET PO ONE (09:30)
--- NOTE | 2017-12-31 09:32 | NUR ---
CALLED NURSEING SUP FOR BED.
--- NOTE | 2017-12-31 10:32 | NUR ---
IV removed. Catheter intact and site benign. Pressure and 4x4 applied to site. No bleeding noted.
--- NOTE | 2017-12-31 10:32 | NUR ---
IV removed. Catheter intact and site benign. Pressure and 4x4 applied to site. No bleeding noted.Patient discharged to home in stable condition. Written and verbal after care instructions given. Patient verbalizes understanding of instruction.
[2017-12-31 11:08] VITALS: BP 168/104
== END 2017-12-31 11:08 | disposition home or self-care (01) ==
LOC: ER 06:59
DX: I12.0 Hypertensive chronic kidney disease with stage 5 chronic kidney disease or end stage renal disease (principal); N18.6 End stage renal disease; G51.0 Bell's palsy; Z99.2 Dependence on renal dialysis; Z86.718 Personal history of other venous thrombosis and embolism; Z88.1 Allergy status to other antibiotic agents; Z60.2 Problems related to living alone; Z79.899 Other long term (current) drug therapy; Z79.82 Long term (current) use of aspirin
CPT/HCPCS: 36415; 71045-TC; 80048-TC; 80076-TC; 84484-TC; 85025-TC; 85730-TC; A4606; Z7610

== ENCOUNTER 2018-01-26 00:38 | Emergency (ER) | payer MEDICAID ==
[~2018-01-26] VITALS: Ht 165.1 cm; Wt 97.1 kg
--- NOTE | 2018-01-26 00:38 | NUR ---
bib self; abd pain x 2 days -N/V +DIAHREA. VSS NO ACUTE DISTRESS AT THIS TIME. ALERT AND ORIENTED ABLE TO AMBULATE. WILL CONTINUE TO MONITOR FOR ANY CHANGES DURING THE SHIFT.
--- NOTE | 2018-01-26 00:39 | NUR ---
ER MD SHAY AT BEDSIDE FOR EVAL
[2018-01-26 02:35] LABS: BASOPHILS % (AUTO) 1.1 % (0.0-2.0); EOSINOPHILS % (AUTO) 11.6 % (0.0-6.0); HEMATOCRIT 27 % (33-45); HEMOGLOBIN 8.9 g/dL (11.5-14.8); LYMPHOCYTES # (AUTO) 0.8 /CMM (0.8-4.8); LYMPHOCYTES % (AUTO) 17.6 % (20.0-44.0); MEAN CORPUSCULAR HEMOGLOBIN 31 PG (26.0-33.0); MEAN CORPUSCULAR HGB CONC 33 g/dl (31.0-36.0); MEAN CORPUSCULAR VOLUME 95 fL (82-100); MONOCYTES # (AUTO) 0.3 /CMM (0.1-1.30); MONOCYTES % (AUTO) 5.9 % (2.0-12.0); NEUTROPHILS # (AUTO) 2.8 /CMM (1.8-8.9); NEUTROPHILS % (AUTO) 63.8 % (43.0-81.0); PLATELET COUNT (AUTO) 160 /CMM (150-450); RDW COEFFICIENT OF VARIATION 15.6 (11.5-15.0); RED BLOOD CELL COUNT(AUTO) 2.86 MIL/uL (4.0-5.2); WHITE BLOOD COUNT (AUTO) 4.4 K/uL (4.3-11.0)
[2018-01-26 02:46] LABS: APPEARANCE,URINE SL CLOUDY (CLEAR); BILIRUBIN,URINE NEGATIVE (NEGATIVE); BLOOD, URINE TRACE-INTA Ery/uL (NEGATIVE); COLOR,URINE OTHER (YELLOW); KETONES,URINE NEGATIVE (NEGATIVE); LEUKOCYTE ESTERASE ,URINE NEGATIVE (NEGATIVE); NITRITE, URINE NEGATIVE (NEGATIVE); PH,URINE 7.5 (5.0-8.0); PROTEIN,URINE 1+ mg/dl (NEGATIVE); UGLUCOSE NEGATIVE (NEGATIVE); UROBILINOGEN,URINE 0.2 EU/dL (0.2)
[2018-01-26 02:47] LABS: INR 1.03 (0.87-1.13)
[2018-01-26 02:59] LABS: BACTERIA,URINE Moderate /HPF (None Seen); RBC,URINE 0-2 /HPF (0-2); SQUAMOUS EPITHELIAL CELL,UR Few /HPF (None Seen); WBC,URINE 0-2 /HPF (0-3)
[2018-01-26 03:00] LABS: ALBUMIN 2.8 g/dL (3.4-5.0); BILIRUBIN,DIRECT 0.1 mg/dL (0.0-0.2); BILIRUBIN,TOTAL 0.2 mg/dL (0.2-1.0); CALCIUM, SERUM 6.5 mg/dL (8.5-10.1); POTASSIUM 5.3 mmol/L (3.5-5.1); TOTAL PROTEIN, SERUM 6.5 g/dL (6.4-8.2)
[2018-01-26 03:03] LABS: CREATININE 16.6 mg/dL (0.6-1.3)
--- NOTE | 2018-01-26 03:04 | NUR ---
PATIENT OFF TO CT
[2018-01-26] MEDS ORDERED: oxyCODONE/APAP (5/325 MG) 1 UDTAB TABLET ONE ×2 (03:49→04:00)
[2018-01-26] MEDS ORDERED: oxyCODONE/APAP (5/325 MG) 1 UDTAB TABLET PO ONE (04:00)
[2018-01-26 06:57] VITALS: BP 138/71
== END 2018-01-26 06:59 | disposition home or self-care (01) ==
LOC: ER 00:40
DX: R19.7 Diarrhea, unspecified (principal); Z60.2 Problems related to living alone; Z88.1 Allergy status to other antibiotic agents; Z86.718 Personal history of other venous thrombosis and embolism; I12.0 Hypertensive chronic kidney disease with stage 5 chronic kidney disease or end stage renal disease; N18.6 End stage renal disease; Z99.2 Dependence on renal dialysis; Z79.82 Long term (current) use of aspirin
CPT/HCPCS: 36415; 74176; 80048; 80076; 81001; 83690; 83880; 84703; 85025; 85730; 86850; 87086; 99285; A4606; Z7610; 81000-TC

== ENCOUNTER 2018-05-30 00:47 | Emergency (ER) | payer MEDICAID ==
[~2018-05-30] VITALS: Ht 165.1 cm; Wt 83.9 kg
[~2018-05-30 00:47] MED LIST changes: -LOSA25TA13 PO; +LOSA25TA27 PO
--- NOTE | 2018-05-30 01:05 | NUR ---
PT PRESENTED TO THE ER WITH A C/O LUE PAIN AND EDEMA. PT HAS AN AV SHUNT IN LUE. PT STATED THAT SHE FEELS LIKE IT MIGHT BE A BLOOD BLOT. PT STATED THAT SHE HAS BLOOD CLOTS BEFORE AND IT FEELS THE SAME. PT HAS NOT HAD HD IN ONE WEEK. USUALLY HAS HD TID.
--- NOTE | 2018-05-30 01:15 | NUR ---
PT'S LUE IS EDEMATOUS, WARM TO TOUCH, PAINFUL, VEINS DISTENDED ON NECK, CHEST AND UPPER LEFT ARM. PT STATED THAT SHE IS ON ELIQUIS ON A DAILY BASIS.
--- NOTE | 2018-05-30 01:25 | NUR ---
VASCULAR ELECTRONIC MUSICAL INSTRUMENT REPAIRER PAGED
--- NOTE | 2018-05-30 01:30 | NUR ---
IV 20G STARTED IN RT WRIST. BLOOD DRAWN AND BLOOD CULTURES X 2 DRAWN. IV BLEW. IV removed. Catheter intact and site benign. Pressure and 4x4 applied to site. No bleeding noted.
--- NOTE | 2018-05-30 01:35 | NUR ---
CXR DONE AT THE BEDSIDE.
--- NOTE | 2018-05-30 01:40 | NUR ---
DR. MORRIS IS AT THE BEDSIDE FOR US GUIDED IV INSERTION. 18G RAC.
[2018-05-30 01:45] LABS: BASOPHILS % (AUTO) 0.8 % (0.0-2.0); EOSINOPHILS % (AUTO) 9.8 % (0.0-6.0); HEMATOCRIT 24 % (33-45); HEMOGLOBIN 7.8 g/dL (11.5-14.8); LYMPHOCYTES # (AUTO) 0.6 /CMM (0.8-4.8); LYMPHOCYTES % (AUTO) 14.9 % (20.0-44.0); MEAN CORPUSCULAR HGB CONC 33 g/dl (31.0-36.0); MEAN CORPUSCULAR VOLUME 103 fL (82-100); MONOCYTES # (AUTO) 0.4 /CMM (0.1-1.30); MONOCYTES % (AUTO) 9.2 % (2.0-12.0); NEUTROPHILS # (AUTO) 2.6 /CMM (1.8-8.9); NEUTROPHILS % (AUTO) 65.3 % (43.0-81.0); PLATELET COUNT (AUTO) 139 /CMM (150-450); RED BLOOD CELL COUNT(AUTO) 2.34 MIL/uL (4.0-5.2)
[2018-05-30 01:55] LABS: CALCIUM, SERUM 8.3 mg/dL (8.5-10.1); POTASSIUM 5.1 mmol/L (3.5-5.1)
[2018-05-30 02:00] LABS: ALBUMIN 3.6 g/dL (3.4-5.0); BILIRUBIN,DIRECT 0.1 mg/dL (0.0-0.2); BILIRUBIN,TOTAL 0.3 mg/dL (0.2-1.0); TOTAL PROTEIN, SERUM 7.5 g/dL (6.4-8.2)
[2018-05-30 02:01] LABS: CREATININE 9.2 mg/dL (0.6-1.3)
[2018-05-30] MEDS ORDERED: HYDROMORPHONE 1 MG/1 ML DISP.SYRIN ONE ×2 (02:06→03:57)
[2018-05-30] MEDS ORDERED: HYDROMORPHONE 1 MG/1 ML DISP.SYRIN IV ONE ×2 (02:30→04:00)
--- NOTE | 2018-05-30 02:35 | NUR ---
US FINISHED AND TECH IS TALKING TO DR MORRIS.
--- NOTE | 2018-05-30 03:50 | NUR ---
DR MORRIS IS AT THE BEDSIDE SPEAKING TO THE PT.
--- NOTE | 2018-05-30 04:06 | NUR ---
PT REC'D MEDICATION ORDERED.
--- NOTE | 2018-05-30 04:47 | NUR ---
IV removed. Catheter intact and site benign. Pressure and 4x4 applied to site. No bleeding noted.Patient discharged to home in stable condition. Written and verbal after care instructions given. Patient verbalizes understanding of instruction AND RX. PT WAS TOLD TO F/U WITH PMD AND PT WAS INSTRUCTED [facility] TO HAVE THE SURGEON LOOK AT THE FISTULA/LUE EDEMA. PT AMBULATED OUT WITH A STEADY GAIT. VSS. NAD NOTED.
[2018-05-30 04:50] VITALS: BP 158/87
== END 2018-05-30 04:51 | disposition home or self-care (01) ==
LOC: ER 00:50
DX: R60.9 Edema, unspecified (principal); I13.2 Hypertensive heart and chronic kidney disease with heart failure and with stage 5 chronic kidney disease, or end stage renal disease; N18.6 End stage renal disease; G51.0 Bell's palsy; J45.909 Unspecified asthma, uncomplicated; Z86.718 Personal history of other venous thrombosis and embolism; Z88.1 Allergy status to other antibiotic agents; Z99.2 Dependence on renal dialysis; Z60.2 Problems related to living alone; Z79.82 Long term (current) use of aspirin
CPT/HCPCS: 36415; 71045; 80048; 80076; 84484; 85025; 85730; 93005; 93931; 96374; 96376; 99284; A4606; J1170 ×2; Z7610; 93930-TC

== ENCOUNTER 2018-06-09 23:13 | Inpatient (IN) | END 2018-06-12 13:25 | disposition left against medical advice (07) | DRG 199 | DX: I16.0 Hypertensive urgency (principal); I50.31 Acute diastolic (congestive) heart failure; J90 Pleural effusion, not elsewhere classified; N18.6 End stage renal disease; D69.59 Other secondary thrombocytopenia; N25.0 Renal osteodystrophy; I13.2 Hypertensive heart and chronic kidney disease with heart failure and with stage 5 chronic kidney disease, or end stage renal disease; Z59.0 Homelessness; N83.209 Unspecified ovarian cyst, unspecified side; Z99.2 Dependence on renal dialysis; D63.8 Anemia in other chronic diseases classified elsewhere; G40.909 Epilepsy, unspecified, not intractable, without status epilepticus; J45.909 Unspecified asthma, uncomplicated; N83.202 Unspecified ovarian cyst, left side; Z86.718 Personal history of other venous thrombosis and embolism; Z76.5 Malingerer [conscious simulation]; Z79.84 Long term (current) use of oral hypoglycemic drugs; D53.9 Nutritional anemia, unspecified; Z79.01 Long term (current) use of anticoagulants; Z91.15 Patient's noncompliance with renal dialysis ==

== ENCOUNTER 2018-06-14 21:59 | Inpatient (IN) | payer MEDICAID ==
[~2018-06-14] VITALS: Ht 165.1 cm; Wt 89.8 kg
[~2018-06-14 21:59] MED LIST changes: +AMIT25TA9 PO; +APIX5TAB PO; +CARV25TA2 PO; +HYDR-4076 PO; +HYDR-4354 PO; +NIFE60TA73 PO; +SERT50TA PO; +SEVE800T8 PO; +TOPI200T16 PO
--- NOTE | 2018-06-14 22:25 | NUR ---
PT LIO FROM [facility] COMPLAINING OF CHEST PAIN X3 DAYS. NOTED FACIAL SWELLING AND SOB. PT 100% ROOM AIR, NOTED LABORED BREATHING. PT STATES SHE MISSED MULTIPLE DAYS OF DIALYSIS. PT AAOX4. PLACED ON CONTINUOUS 1ST GRADE TEACHER. WILL CONTINUE TO MONITOR
--- NOTE | 2018-06-14 22:26 | NUR ---
MD AT BEDSIDE FOR EVALUATION
[2018-06-14] MEDS ORDERED: NITROGLYCERIN PACKET 1 GM PACKET ONE (22:27)
[2018-06-14] MEDS ORDERED: NITROGLYCERIN 0.4 MG/TAB BOTTLE ONE (22:27)
[2018-06-14] MEDS ORDERED: ASPIRIN 81 MG TAB.CHEW ONE (22:27)
[2018-06-14] MEDS ORDERED: NITROGLYCERIN PACKET 1 GM PACKET TD ONE (22:30)
[2018-06-14] MEDS ORDERED: NITROGLYCERIN 0.4 MG/TAB BOTTLE SL ONE (22:30)
[2018-06-14] MEDS ORDERED: ASPIRIN 81 MG TAB.CHEW PO ONE (22:30)
[2018-06-14 22:34] LABS: BASOPHILS % (AUTO) 0.6 % (0.0-2.0); EOSINOPHILS % (AUTO) 11.3 % (0.0-6.0); HEMATOCRIT 24 % (33-45); HEMOGLOBIN 7.9 g/dL (11.5-14.8); LYMPHOCYTES # (AUTO) 0.9 /CMM (0.8-4.8); LYMPHOCYTES % (AUTO) 20.9 % (20.0-44.0); MEAN CORPUSCULAR HGB CONC 33 g/dl (31.0-36.0); MEAN CORPUSCULAR VOLUME 102 fL (82-100); MONOCYTES # (AUTO) 0.3 /CMM (0.1-1.30); MONOCYTES % (AUTO) 8.1 % (2.0-12.0); NEUTROPHILS # (AUTO) 2.5 /CMM (1.8-8.9); NEUTROPHILS % (AUTO) 59.1 % (43.0-81.0); PLATELET COUNT (AUTO) 131 /CMM (150-450); RED BLOOD CELL COUNT(AUTO) 2.34 MIL/uL (4.0-5.2); WHITE BLOOD COUNT (AUTO) 4.2 K/uL (4.3-11.0)
[2018-06-14] MEDS ORDERED: HYDROCODONE/APAP 10/325MG 1 EA TABLET ONE (22:46)
[2018-06-14 22:51] LABS: D-DIMER 1.64 mg/L(FEU (0.17-0.50)
--- NOTE | 2018-06-14 22:59 | NUR ---
RADIOLOGY AT BEDSIDE FOR CXR
[2018-06-14] MEDS ORDERED: HYDROCODONE/APAP 10/325MG 1 EA TABLET PO ONE (23:00)
[2018-06-14 23:01] LABS: ALBUMIN 3.3 g/dL (3.4-5.0); BILIRUBIN,DIRECT 0.1 mg/dL (0.0-0.2); BILIRUBIN,TOTAL 0.3 mg/dL (0.2-1.0); CALCIUM, SERUM 7.8 mg/dL (8.5-10.1); MAGNESIUM 2.2 mg/dL (1.8-2.4); PHOSPHORUS 5.6 mg/dL (2.5-4.9); POTASSIUM 4.9 mmol/L (3.5-5.1); TOTAL PROTEIN, SERUM 6.7 g/dL (6.4-8.2)
[2018-06-14 23:03] LABS: CREATININE 12.2 mg/dL (0.6-1.3)
[2018-06-14] MEDS ORDERED: FUROSEMIDE 40 MG/4 ML VIAL IV ONE (23:30)
[2018-06-15] MEDS ORDERED: FUROSEMIDE 40 MG/4 ML VIAL ONE (00:23)
--- NOTE | 2018-06-15 00:35 | NUR ---
BROUGHT BY RADIOLOGY FOR VQ SCAN
[2018-06-15] MEDS ORDERED: ONDANSETRON HCL/PF 4 MG/2 ML VIAL IVP PRN (01:00)
[2018-06-15] MEDS ORDERED: ACETAMINOPHEN 325 MG TABLET PO PRN (01:00)
[2018-06-15] MEDS ORDERED: MAGNESIUM HYDROXIDE 30 ML UDC PO PRN (01:00)
[2018-06-15] MEDS ORDERED: MAG HYDROX/AL HYDROX/SIMETH 30 ML UDC PO PRN (01:00)
[2018-06-15] MEDS ORDERED: Z GUARD REMEDY 2 OZ OINT TP PRN (01:00)
--- NOTE | 2018-06-15 01:19 | NUR ---
GAVE REPORT TO JANINA RN FOR FRANSICO
--- NOTE | 2018-06-15 01:39 | NUR ---
PT TRANSFERRED PER ACLS PROTOCOL
--- NOTE | 2018-06-15 01:40 | NUR ---
RECEIVED PATIENT FROM ER FOR DX PULMONARY EDEMA. AO X 3, ABLE TO MAKE NEEDS KNOWN. NO ACUTE DISTRESS NOTED. C/O PAIN ON LEFT SIDE OF TORSO, RIGHT BREAST, AND BACK. PATIENT REFUSED SKIN CHECK AND PHOTOS AT THIS TIME. RIGHT BREAST NOTED TO BE SWOLLEN; NOT RED AND NOT WARM TO TOUCH. PER PATIENT, RIGHT BREAST STARTED SWELLING AFTER SHE MISSED HER DIALYSIS. SAFETY REMINDERS GIVEN. ORIENTATION TO ROOM AND UNIT GIVEN TO PATIENT. ON LOW BED WITH BILATERAL UPPER SIDE RAILS UP. CALL STERN WITHIN EASY REACH. WILL CONTINUE TO MONITOR.
[2018-06-15 01:45] VITALS: BP 221/132
[2018-06-15] MEDS: ZOLPIDEM TARTRATE 5 MG TABLET PO PRN (02:01)
[2018-06-15] MEDS: HYDROCODONE/APAP 5/325MG 1 EACH TABLET PO PRN ×2 (02:22→06:23)
[2018-06-15] MEDS: CLONIDINE HCL 0.1 MG TABLET PO PRN (03:48)
[2018-06-15 04:00] VITALS: BP 207/121
--- NOTE | 2018-06-15 04:04 | NUR ---
DR. REYES MADE AWARE OF PATIENT 03/24 BACK AND RIGHT BREAST PAIN; NORCO 5/ INEFFECTIVE. DR. REYES ORDERED CONSULTATION WITH DR. LEDA KOO; NOTED AND CARRIED OUT. WILL CONTINUE TO MONITOR PATIENT.
[2018-06-15] MEDS: hydrALAZINE HCL 25 MG TABLET PO PRN (05:45)
--- NOTE | 2018-06-15 06:00 | NUR ---
PATIENT AWAKE. NO ACUTE DISTRESS NOTED. MONITORED FOR PAIN. NONPHARMACOLOGICAL INTERVENTIONS GIVEN TO MAKE PATIENT COMFORTABLE. NEEDS ATTENDED. SAFETY PRECAUTIONS AND COMFORT MEASURES IN PLACE. WILL GIVE REPORT TO DAY SHIFT FOR CONTINUITY OF CARE.
--- NOTE | 2018-06-15 07:44 | NUR ---
PSYCHIATRIST NOTES PATIENT RECEIVED RESTING INSIDE ROOM. AWAKE, ALERT AND ORIENTED. VERBALLY RESPONSIVE AND RESPONDS TO VERBAL AND TACTILE STIMULI. CONTINUE ON MONITORING FOR PAIN. NO ACUTE DISTRESS NOTED AT THIS TIME. PATIENT CONTINUE TO NOTE WITH ELEVATED BLOOD PRESSURE. MD AWARE. WILL CONTINUE TO MONITOR. BED LOCKED AND IN LOW POSITION. BILATERAL UPPER SIDE RAILS UP AND LOCKED. CALL LIGHT WITHIN EASY REACH
[2018-06-15 08:00] VITALS: BP 212/131
[2018-06-15] MEDS ORDERED: CARVEDILOL 25 MG TABLET PO SCH (08:00)
[2018-06-15] MEDS: CALCIUM ACETATE 667 MG TABLET PO SCH ×3 (08:00→17:46)
[2018-06-15] MEDS ORDERED: LOSARTAN POTASSIUM 25 MG TABLET PO SCH (09:00)
[2018-06-15] MEDS ORDERED: hydrALAZINE HCL 50 MG TABLET PO SCH (09:00)
[2018-06-15] MEDS: GABAPENTIN 100 MG CAPSULE PO SCH ×3 (09:02→17:46)
[2018-06-15] MEDS: ASPIRIN EC 81 MG TABLET.DR PO SCH (09:02)
[2018-06-15] MEDS: CARVEDILOL 12.5 MG TABLET PO SCH ×2 (09:03→18:00)
[2018-06-15] MEDS: CITALOPRAM HYDROBROMIDE 20 MG TABLET PO SCH (09:11)
[2018-06-15] MEDS: TOPIRAMATE 100 MG TABLET PO SCH ×2 (09:11→17:46)
[2018-06-15] MEDS: APIXABAN 2.5 MG TABLET PO SCH ×2 (09:11→17:46)
[2018-06-15 12:00] VITALS: BP 164/99
[2018-06-15] MEDS ORDERED: EPOETIN ALFA (10,000 UNIT) 10,000 UNIT/ML VIAL IV SCH (12:00)
--- NOTE | 2018-06-15 12:00 | NUR ---
PLASTICS PROCESS HAND NOTES PATIENT SEEN AND EXAMINED BY DR. COMER, WITH ORDER FOR PATIENT TO HAVE HD TODAY. PER DR. COMER, HE ALREADY MADE DIRECTOR OF STATE AWARE AND WILL SEE PATIENT TODAY. WILL CONTINUE TO MONITOR
--- NOTE | 2018-06-15 12:15 | NUR ---
NURSING ATTENDANT NOTES PATIENT WITH ORDER FROM DR. COMER FOR EPOETIN 10,000 UN[address] HD[address] FRANKLIN PRESENT AT UNIT AND MADE AWARE TO VERIFY MEDICATION ORDER. PER DR. FRANKLIN, TO CANCEL EPOETIN IV. VERIFIED IF SHE WANTS TO CHANGE ADMINISTRATION ROUTE BUT PER DR. FRANKLIN, TO JUST DC MEDICATION. ORDER NOTED AND CARRIED OUT. WILL CONTINUE TO MONITOR
[2018-06-15] MEDS: HYDROCODONE/APAP 10/325MG 1 EA TABLET PO PRN ×2 (12:39→18:58)
[2018-06-15] MEDS ORDERED: diphenhydrAMINE HCL 50 MG/ML VIAL IV PRN (13:00)
[2018-06-15 16:00] VITALS: BP 191/110
--- NOTE | 2018-06-15 16:34 | NUR ---
BINDERY PRODUCTION MANAGER NOTES PATIENT CONTINUES TO REFUSE SKIN CHECKS. ALSO REFUSES TO HAVE SHOWER DONE. PROCEDURE, RISKS AND BENEFITS EXPLAINED BUT TO NO AVAIL. PATIENT STRONGLY REFUSES SHOWER AND BODY CHECK. WILL CONTINUE TO MONITOR
[2018-06-15] MEDS: hydrALAZINE HCL 50 MG TABLET PO SCH (17:00)
--- NOTE | 2018-06-15 18:00 | NUR ---
DIRECTOR BUSINESS DEVELOPMENT NOTES ONGOING DIALYSIS. HOLD BLOOD PRESSURE MEDICATIONS PER DIALYSIS NURSE. AWARE. WILL CONTINUE TO MONITOR
--- NOTE | 2018-06-15 18:35 | NUR ---
PATTERN GATER NOTES PATIENT RESTING INSIDE ROOM. AWAKE, ALERT AND ORIENTED. NO ACUTE DISTRESS. CONTINUE ON MONITORING FOR PAIN. ONGOING HEMODIALYSIS AT THIS TIME. PATIENT CONTINUES TO REFUSE BODY CHECK AND SHOWER. SAFETY PRECAUTIONS IN PLACE. WILL ENDORSE TO INCOMING SHIFT FOR FRANSICO. BED LOCKED AND IN LOW POSITION. BILATERAL UPPER SIDE RAILS UP AND LOCKED. CALL LIGHT WITHIN EASY REACH
--- NOTE | 2018-06-15 19:30 | NUR ---
RECEIVED PATIENT IN BED UNDERGOING HEMODIALYSIS. AO X 3, CRYING. NO ACUTE DISTRESS NOTED. MONITORED FOR PAIN. REASSURANCE GIVEN. ON LOW BED WITH BILATERAL UPPER SIDE RAILS UP. CALL STERN WITHIN EASY REACH. WILL CONTINUE TO MONITOR.
[2018-06-15] MEDS ORDERED: HYDROMORPHONE 1 MG/1 ML DISP.SYRIN IV ONE (21:00)
--- NOTE | 2018-06-15 21:05 | NUR ---
DR. KEARNS MADE AWARE OF PATIENT'S C/O OF SEVERE PAIN (GENERALIZED); PATIENT WAS CRYING. DR. KEARNS ORDERED DILAUDID 1 MG IV X 1; NOTED AND CARRIED OUT.
[2018-06-15] MEDS ORDERED: HYDROMORPHONE INJ 2 MG/ML DISP.SYRIN IV ONE (21:30)
[2018-06-16] VITALS: BP 197/114
[2018-06-16] MEDS: hydrALAZINE HCL 25 MG TABLET PO PRN (00:15)
[2018-06-16] MEDS: ZOLPIDEM TARTRATE 5 MG TABLET PO PRN (00:55)
[2018-06-16 04:00] VITALS: BP 193/117
[2018-06-16] MEDS: CLONIDINE HCL 0.1 MG TABLET PO PRN (04:10)
[2018-06-16] MEDS: HYDROCODONE/APAP 10/325MG 1 EA TABLET PO PRN (04:16)
--- NOTE | 2018-06-16 06:19 | NUR ---
PATIENT ASLEEP, EASILY AROUSABLE. RESPIRATIONS EVEN. NO SIGNS OF PAIN NOTED. NEEDS ATTENDED. SAFETY PRECAUTIONS AND COMFORT MEASURES IN PLACE. WILL GIVE REPORT TO DAY SHIFT FOR CONTINUITY OF CARE.
--- NOTE | 2018-06-16 07:08 | NUR ---
YARD WORKER NOTES PATIENT IN BED, ALERT ORIENTED X 3. NO ACUTE DISTRESS NOTED. BREATHING UNLABORED. NO SOB NOTED. IV ACCESS PATENT AND INTACT, NO REDNESS OR SWELLING NOTED. SAFETY MEASURES IN PLACE, CALL LIGHT WITHIN REACH. WILL CONTINUE TO MONITOR ACCORDINGLY.
[2018-06-16 08:00] VITALS: BP 186/110
[2018-06-16] MEDS: CALCIUM ACETATE 667 MG TABLET PO SCH ×2 (08:06→13:23)
[2018-06-16] MEDS: CARVEDILOL 12.5 MG TABLET PO SCH (08:07)
[2018-06-16 08:26] LABS: BASOPHILS % (AUTO) 0.8 % (0.0-2.0); HEMATOCRIT 23 % (33-45); HEMOGLOBIN 7.6 g/dL (11.5-14.8); LYMPHOCYTES # (AUTO) 0.8 /CMM (0.8-4.8); LYMPHOCYTES % (AUTO) 25.4 % (20.0-44.0); MEAN CORPUSCULAR HGB CONC 34 g/dl (31.0-36.0); MEAN CORPUSCULAR VOLUME 101 fL (82-100); MONOCYTES # (AUTO) 0.4 /CMM (0.1-1.30); MONOCYTES % (AUTO) 11.5 % (2.0-12.0); NEUTROPHILS # (AUTO) 1.6 /CMM (1.8-8.9); NEUTROPHILS % (AUTO) 50.3 % (43.0-81.0); PLATELET COUNT (AUTO) 113 /CMM (150-450); RED BLOOD CELL COUNT(AUTO) 2.24 MIL/uL (4.0-5.2); WHITE BLOOD COUNT (AUTO) 3.1 K/uL (4.3-11.0)
[2018-06-16 08:41] LABS: ALBUMIN 3.4 g/dL (3.4-5.0); BILIRUBIN,TOTAL 0.3 mg/dL (0.2-1.0); CALCIUM, SERUM 8.1 mg/dL (8.5-10.1); MAGNESIUM 2.2 mg/dL (1.8-2.4); PHOSPHORUS 5.7 mg/dL (2.5-4.9); POTASSIUM 4.7 mmol/L (3.5-5.1); TOTAL PROTEIN, SERUM 6.5 g/dL (6.4-8.2)
[2018-06-16] MEDS: hydrALAZINE HCL 50 MG TABLET PO SCH ×2 (09:00→16:12)
[2018-06-16] MEDS ORDERED: LOSARTAN POTASSIUM 25 MG TABLET PO SCH (09:00)
--- NOTE | 2018-06-16 09:00 | NUR ---
MS RN NOTES CLARIFIED WITH PHYLLIS DIALYSIS NURSE, PATIENT SCHEDULED FOR DIALYSIS TODAY SOON, HELD 0900 BLOOD PRESSURE MEDICATIONS.
[2018-06-16 09:23] LABS: CREATININE 11.5 mg/dL (0.6-1.3)
[2018-06-16] MEDS: TOPIRAMATE 100 MG TABLET PO SCH (09:38)
[2018-06-16] MEDS: ASPIRIN EC 81 MG TABLET.DR PO SCH (09:38)
[2018-06-16] MEDS: CITALOPRAM HYDROBROMIDE 20 MG TABLET PO SCH (09:38)
[2018-06-16] MEDS: GABAPENTIN 100 MG CAPSULE PO SCH ×2 (09:38→13:23)
[2018-06-16] MEDS: APIXABAN 2.5 MG TABLET PO SCH (10:22)
[2018-06-16 12:00] VITALS: BP 165/93
--- NOTE | 2018-06-16 14:55 | NUR ---
REPEATER OPERATOR NOTES RECEIVED A CALL FROM DIALYSIS CHRISTINA SAID PATIENT DIALYSIS WILL NOT DONE TODAY AND RESCHEDULED FOR TOMORROW, NOTIFIED DR ROSALBA SHERMAN MADE AWARE AND ALSO CLARIFIED ORDER REGARDING EPOGEN WITH HD ADMINISTRATION , OK TO BE GIVEN WITH DIALYSIS TOMORROW AM.
[2018-06-16] MEDS ORDERED: EPOETIN ALFA (10,000 UNIT) 10,000 UNIT/ML VIAL IV ONE (15:00)
--- NOTE | 2018-06-16 15:04 | NUR ---
MS RN NOTES EPOGEN RETURNED TO PHARMACY SPOKE WITH BURT, REQUESTING NEW HGB AND HCT LEVEL IN AM, PHARMACY WILL SEND EPOGEN IN AM.
[2018-06-16 16:00] VITALS: BP 180/108
--- NOTE | 2018-06-16 16:10 | NUR ---
TRANSIT VEHICLE INSPECTOR NOTES DR DEWAYNE FRANKLIN MADE AWARE OF ELEVATED BLOOD PRESSURE.
[2018-06-16 16:12] VITALS: BP 180/102
--- NOTE | 2018-06-16 16:35 | NUR ---
RN GIGI NOTES PATIENT INSISTED ON LEAVING THE HOSPITAL STATING "I'M OUT OF HERE", RISK AND BENEFITS EXPLAINED TO THE PATIENT , VERBALIZED UNDERSTANDING BUT INSISTED ON LEAVING THE HOSPITAL AGAINST MEDICAL ADVICE. IV ACCESS REMOVED, NO BLEEDING, NO REDNESS, NO SWELLING NOTED. ALL BELONGINGS ACCOUNTED FOR AND SIGNED. REFUSED BODY CHECK. LEFT UPPER ARM HD ACCESS WITH DRESSING INTACT, CLEAN AND DRY. REFUSED TO WAIT FOR DISCHARGE PAPERS. PATIENT ASSISTED TO THE LOBBY. NO ACUTE DISTRESS NOTED. BREATHING UNLABORED. NO SOB NOTED. DENIED ANY PAIN. NOTIFIED DR MCKENNA FRANKLIN. CHARGE NURSE SHELTON AND AUTO BENCH MECHANIC AWARE.
== END 2018-06-16 17:00 | disposition left against medical advice (07) | DRG 199 ==
LOC: ER 22:05 → TELE 06-15 01:02
PROVIDERS: ADMIT Internal Medicine; ATTEND Internal Medicine
PROC: 5A1D70Z Performance of Urinary Filtration, Intermittent, Less than 6 Hours Per Day (ICD-10-PCS; principal; 2018-06-15)
DX: I16.0 Hypertensive urgency (principal); E87.70 Fluid overload, unspecified; N18.6 End stage renal disease; I12.0 Hypertensive chronic kidney disease with stage 5 chronic kidney disease or end stage renal disease; D64.9 Anemia, unspecified; Z99.2 Dependence on renal dialysis; Z59.0 Homelessness; J45.909 Unspecified asthma, uncomplicated; Z79.01 Long term (current) use of anticoagulants
CPT/HCPCS: 36415; 71045-TC; 78582; 80048-TC; 80053-TC; 80061-TC; 80076-TC; 83735-TC; 83880; 84100-TC; 84484-TC; 84702-TC; 85025-TC; 85378-TC; 85730-TC; 87081-TC; 90935-TC; A9540; A9567; G0378; J0885; J1170; J1200; J1940

== ENCOUNTER 2018-06-29 03:04 | Inpatient (IN) | payer MEDICAID ==
[~2018-06-29] VITALS: Ht 165.1 cm; Wt 83.9 kg
[~2018-06-29 03:04] MED LIST changes: -AMIT25TA9 PO; -APIX5TAB PO; -CARV25TA2 PO; -HYDR-4076 PO; -HYDR-4354 PO; -NIFE60TA73 PO; -SERT50TA PO; -SEVE800T8 PO; -TOPI200T16 PO
--- NOTE | 2018-06-29 03:18 | NUR ---
PT BIBSELF COMPLAINING OF PRESSURE-LIKE, NONRADIATING CHEST PAIN X1.5 DAYS. PT ALSO COMPLAINING OF LOWER BACK PAIN AND SHORTNESS OF BREATH. PT SUPPOSED TO RECEIEVE DIALYSIS 3X/WEEK, ACCESS ON LEFT ARM. PT STATES LAST TIME SHE RECEIVED DIALYSIS WAS 10 DAYS AGO. PT AAOX4. AMBULATORY WITH STEADY GAIT. PLACED IN GOWN AND ON CONTINUOUS PEDIATRIC IMMUNOLOGIST. WILL CONTINUE TO MONITOR.
--- NOTE | 2018-06-29 03:22 | NUR ---
MD AT BEDSIDE FOR EVALUATION
--- NOTE | 2018-06-29 03:35 | NUR ---
IV INITIATED RIGHT SHOULDER 20G. LABS DRAWN FROM SITE. SALES CORRESPONDENT AT BEDSIDE FOR COLLECTION. IV INTACT AND PATENT, PLACED ON SALINE LOCK
[2018-06-29 03:44] LABS: BASOPHILS # (AUTO) 0.1 /CMM (0.0-0.2); BASOPHILS % (AUTO) 1.1 % (0.0-2.0); EOSINOPHILS % (AUTO) 6.8 % (0.0-6.0); HEMATOCRIT 21 % (33-45); LYMPHOCYTES % (AUTO) 20.8 % (20.0-44.0); MEAN CORPUSCULAR HGB CONC 34 g/dl (31.0-36.0); MEAN CORPUSCULAR VOLUME 102 fL (82-100); MONOCYTES # (AUTO) 0.6 /CMM (0.1-1.30); NEUTROPHILS # (AUTO) 2.8 /CMM (1.8-8.9); NEUTROPHILS % (AUTO) 58.3 % (43.0-81.0); PLATELET COUNT (AUTO) 147 /CMM (150-450); RED BLOOD CELL COUNT(AUTO) 2.04 MIL/uL (4.0-5.2); WHITE BLOOD COUNT (AUTO) 4.8 K/uL (4.3-11.0)
[2018-06-29 03:49] LABS: HEMOGLOBIN 6.9 g/dL (11.5-14.8)
[2018-06-29 03:54] LABS: CALCIUM, SERUM 7.3 mg/dL (8.5-10.1); POTASSIUM 5.3 mmol/L (3.5-5.1)
--- NOTE | 2018-06-29 04:04 | NUR ---
PT HYPERTENSIVE, MD AWARE
--- NOTE | 2018-06-29 04:04 | NUR ---
RADIOLOGY AT BEDSIDE FOR CXR
[2018-06-29] MEDS ORDERED: FUROSEMIDE 40 MG/4 ML VIAL ONE (04:07)
--- NOTE | 2018-06-29 04:20 | NUR ---
CALLED DR. ESCOBAR THROUGH ANSWERING SERVICE. AWAITING CALL BACK
[2018-06-29] MEDS ORDERED: FUROSEMIDE 40 MG/4 ML VIAL IV ONE (04:30)
--- NOTE | 2018-06-29 04:37 | NUR ---
CALLED PANEL FOR DR. ESCOBAR. AWAITING CALL BACK
--- NOTE | 2018-06-29 04:50 | NUR ---
[facility] FOR [facility]. ESCOBAR.
--- NOTE | 2018-06-29 05:20 | NUR ---
CALLED [facility] FOR DR. GAYLE AGAIN. AWAITING CALL BACK
--- NOTE | 2018-06-29 05:37 | NUR ---
GAVE REPORT TO [address]IE [address] FOR FRANSICO
--- NOTE | 2018-06-29 05:44 | NUR ---
4TH CALL TO [facility] FOR DR. PEREZ. INFORMED "DR. GRUBBS IS GOING TO CALL BACK". NOTIFIED.
--- NOTE | 2018-06-29 06:00 | NUR ---
PT TRANSFERRED TO TELE BED 119-2 PER ACLS PROTOCOL
[2018-06-29 06:13] VITALS: BP 171/114
--- NOTE | 2018-06-29 06:24 | NUR ---
PT ADMITTED FROM ER, PT ALERT, AWAKE, AMBULATORY, ON ROOM AIR O2 SAT 98%, VS WNL, PT COMPLAINED OF L ABDOMINAL PAIN 10/, PT REFUSED SKIN ASSESSMENT AND ALSO REFUSED BELONGINGS TO BE CHECKED. FIANCE AT BEDSIDE WITH PATIENT. MD GAYLE PAGED FOR ADMIT ORDERS .
[2018-06-29 06:58] LABS: LYMPHOCYTES % (MANUAL) 27 % (16-48); MONOCYTES % (MANUAL) 10 % (0-11.0); NEUTROPHILS % (MANUAL) 63 (42-76)
[2018-06-29] MEDS ORDERED: ZOLPIDEM TARTRATE 5 MG TABLET PO PRN (07:00)
[2018-06-29] MEDS ORDERED: Z GUARD REMEDY 2 OZ OINT TP PRN (07:00)
[2018-06-29] MEDS ORDERED: ACETAMINOPHEN 325 MG TABLET PO PRN (07:00)
[2018-06-29] MEDS ORDERED: ONDANSETRON HCL/PF 4 MG/2 ML VIAL IVP PRN (07:00)
[2018-06-29] MEDS ORDERED: MAGNESIUM HYDROXIDE 30 ML UDC PO PRN (07:00)
[2018-06-29] MEDS ORDERED: MAG HYDROX/AL HYDROX/SIMETH 30 ML UDC PO PRN (07:00)
--- NOTE | 2018-06-29 07:00 | NUR ---
DYEING MACHINE TENDER OPENING NOTES RECEIVED REPORT FROM PM SHIFT. PT IS A/OX4. ASLEEP INTERMITTENTLY, PT'S FIANCEE IS SLEEPING NEXT TO PT. PT WAS ADMITTED THIS AM. PT IS ON ROOM AIR. O2 SAT 96%. ON TELE PT IS SR. PT WILL BE DIALYZED TODAY. ORBITAL EDEMA NOTED. BED IN LOCKED/LOWEST POSITION. CALL LIGHT IN REACH. WILL CONT TO MONITOR.
[2018-06-29 07:30] LABS: IRON, SERUM 70 ug/dl (50-175); TOTAL IRON BINDING CAPACITY 205 ug/dl (250-450)
[2018-06-29 08:00] VITALS: BP 160/96
[2018-06-29] MEDS: hydrALAZINE HCL 50 MG TABLET PO SCH ×2 (09:00→17:00)
[2018-06-29] MEDS: LOSARTAN POTASSIUM 25 MG TABLET PO SCH (09:00)
[2018-06-29] MEDS: CARVEDILOL 12.5 MG TABLET PO SCH ×2 (09:00→21:57)
[2018-06-29] MEDS: CALCIUM ACETATE 667 MG TABLET PO SCH ×3 (09:39→18:08)
[2018-06-29] MEDS: GABAPENTIN 100 MG CAPSULE PO SCH ×3 (09:39→18:08)
[2018-06-29] MEDS: HYDROCODONE/APAP 5/325MG 1 EACH TABLET PO PRN ×2 (09:40→23:10)
[2018-06-29] MEDS: CITALOPRAM HYDROBROMIDE 20 MG TABLET PO SCH (09:40)
[2018-06-29] MEDS: TOPIRAMATE 100 MG TABLET PO SCH ×2 (09:54→23:02)
--- NOTE | 2018-06-29 12:11 | NUR ---
MS STREET NOTES PER DR STEIN, REDRAW HGB TO SEE IF TRANSFUSION IS NECESSARY. Addendum: 06/29/18 at 1957 by ALISIA CLINTON RN HGB WAS 7.0. TRANSFUSION NOT NECESSARY PER PROTOCOL
--- NOTE | 2018-06-29 13:45 | NUR ---
MS RN NOTES PT'S HGB 7.0. NO NEED FOR TRANSFUSION
[2018-06-29 14:43] LABS: BASOPHILS # (AUTO) 0.1 /CMM (0.0-0.2); BASOPHILS % (AUTO) 1.5 % (0.0-2.0); EOSINOPHILS % (AUTO) 6.2 % (0.0-6.0); HEMATOCRIT 21 % (33-45); LYMPHOCYTES % (AUTO) 22.9 % (20.0-44.0); MEAN CORPUSCULAR HGB CONC 34 g/dl (31.0-36.0); MEAN CORPUSCULAR VOLUME 102 fL (82-100); MONOCYTES # (AUTO) 0.6 /CMM (0.1-1.30); MONOCYTES % (AUTO) 13.1 % (2.0-12.0); NEUTROPHILS # (AUTO) 2.5 /CMM (1.8-8.9); NEUTROPHILS % (AUTO) 56.3 % (43.0-81.0); PLATELET COUNT (AUTO) 143 /CMM (150-450); RED BLOOD CELL COUNT(AUTO) 2.06 MIL/uL (4.0-5.2); WHITE BLOOD COUNT (AUTO) 4.5 K/uL (4.3-11.0)
[2018-06-29 16:00] VITALS: BP 160/96
--- NOTE | 2018-06-29 16:00 | NUR ---
MS RN NOTES PT REFUSED 1600 VITALS
--- NOTE | 2018-06-29 16:00 | NUR ---
MS YENIFER LUNA REFUSED [place] VS Addendum: 06/29/18 at 1828 by ALISIA CLINTON RN Amended: Links added.
--- NOTE | 2018-06-29 19:20 | NUR ---
MS RN NOTES PT ENDORSED TO PM SHIFT FOR FRANSICO. PT IS WAITING FOR HD TX. PT WANTS TO GET DIALYSIS AND LEAVE AMA. PT IS NON-COMPLIANT WITH TX. MD AWARE. PER DR STEIN, PT WILL NOT GET BENADRYL FOR HD. DR NAVARRETE CONTACTED FOR ORDERS PT INSISTS ON BENADRY. WAITING FOR ORDERS. PT REFUSES SKIN ASSESSMENT. BED IN LOCKED/LOWEST POSITION. CALL LIGHT IN REACH.
[2018-06-29] MEDS: diphenhydrAMINE HCL 50 MG/ML VIAL IV PRN (20:04)
--- NOTE | 2018-06-29 20:20 | NUR ---
MS RN NOTES, PATIENT IN BED SLEEPING BUT EASILY AROUSES WITH VERBAL STIMULI, NO ACUTE DISTRESS NOTED, PATIENT GETTING HD AT THIS TIME HD TX, PT REFUSES SKIN ASSESSMENT, BED IN LOCKED/LOWEST POSITION, CALL LIGHT IN REACH, WILL CONTINUE TO MONITOR CLOSELY.
--- NOTE | 2018-06-29 20:20 | NUR ---
POLYSOMNOGRAPHIC TECHNICIAN NOTES, PATIENT STARTED HD WITH BP 199/112, PER HD NURSE, IT WILL BE OK AFTER HD, WILL CONTINUE TO MONITOR CLOSELY.
--- NOTE | 2018-06-29 20:21 | NUR ---
Patient states she lives with her fiance. She is ambulatory and independent with adl's. States she was on peritoneal dialysis now converted to hemodialysis. She has been non-compliant, has not been to the dialysis center and has not seen renal MD.Her pcp is from [facility] and she has no renal doctor following her case. She bounces between hospitals to seek hemodialysis treatments and frequent AMA from hospital.She plan to return to prior living arrangement when discharge. Addendum: 06/29/18 at 2021 by GENOVEVA HAYES RN Amended: Links added.
--- NOTE | 2018-06-29 22:00 | NUR ---
BEER COIL CLEANER NOTES, PATIENT RECEIVING HD T THIS TIME, AND PER HD NURSE TO ADMINISTER COREG SCHEDULED AT 2100, SINCE PATIENT SBP IS ABOVE 190, ADMINISTERED ORDERED.
--- NOTE | 2018-06-29 23:25 | NUR ---
RN MS NOTES, HEMODIALYSIS DONE AT THIS TIME WITH 4L OUT, PATIENT COMPLAINING OF PAIN 01/22 AT THIS TIME, BP 161, 88, 89, 20, 98.0, 98%, NORCO FOR PAIN ADMINISTERED ORDERED, WILL CONTINUE TO MONITOR CLOSELY
[2018-06-30] VITALS: BP 144/81
[2018-06-30 04:00] VITALS: BP 158/72
[2018-06-30] MEDS: HYDROCODONE/APAP 5/325MG 1 EACH TABLET PO PRN (05:20)
--- NOTE | 2018-06-30 06:39 | NUR ---
MS RN NOTES, PATIENT IN BED SLEEPING BUT EASILY AROUSES WITH VERBAL STIMULI, NO ACUTE DISTRESS NOTED, HAD HD LAST NIGHT WITH 4000ML OUT, AND PER DAY SHIFT NURSE, MD STEIN DID NOT WANT TRANSFUSION FOR PATIENT, INSTEAD REPEAT H&H WITH 7.0 VALUE YESTERDAY, AND INFORMED AND STATES AGAIN NO BLOOD TRANSFUSION FOR NOW, BED IN LOCKED/LOWEST POSITION, CALL LIGHT IN REACH, NO SIGNIFICANT CHANGE IN CONDITION, WILL ENDORSE CONTINUITY OF CARE TO ONCOMING NURSE.
--- NOTE | 2018-06-30 07:10 | NUR ---
MS RN NOTES PER THE MANUFACTURING TEACHER THE HGB WAS 6.9, ORDERED TO TRANSFUSE BLOOD.BUT DR.ANDONIAN Smiley REFUSED AND ORDERED STAT H/H.THE RECENT HGB IS 7.REPORT GIVEN TO FOR FRANSICO.
[2018-06-30 07:52] LABS: CALCIUM, SERUM 7.8 mg/dL (8.5-10.1); PHOSPHORUS 5.3 mg/dL (2.5-4.9); POTASSIUM 4.8 mmol/L (3.5-5.1)
[2018-06-30 07:57] LABS: CREATININE 9.3 mg/dL (0.6-1.3)
[2018-06-30 08:00] VITALS: BP 158/89
--- NOTE | 2018-06-30 08:06 | NUR ---
RN AM SHIFT NOTE PATIENT RECEIVED FROM NIGHT NURSE, IN BED ASLEEP. ANEMIA AND INCREASED POTASSIUM. PATIENT IS CONTINENT AND ALERT X4. PATIENT REFUSES SKIN ASSESSMENT AND IS NON COMPLIANT . HYPERTENSION PRESENT, CHEST X RAY RESULTED NO ACUTE PULMONARY DISEASE. Addendum: 06/30/18 at 0858 by RAS DONOVAN RN PT IS LYING ON THE BED.CAN AMBULATE WITH MINIMAL ASSISTANCE.IV LINE IS ON RIGHT SHOULDER AND LEFT ARM AV SHUNT,SITE IS CLEAN,DRY AND INTACT.NO INFILTRATION NOTED.SAFETY IS MAINTAINED AT ALL TIMES.CALL LIGHT IS WITHIN REACH.BED IS IN LOW POSITION AND LOCKED.WILL CONTINUE TO MONITOR THE PT CLOSELY.
[2018-06-30 09:03] LABS: THYROID STIMULATING HORMONE 6.109 uIU/mL (0.358-3.74)
[2018-06-30] MEDS: LOSARTAN POTASSIUM 25 MG TABLET PO SCH (09:16)
[2018-06-30] MEDS: CITALOPRAM HYDROBROMIDE 20 MG TABLET PO SCH (09:16)
[2018-06-30] MEDS: CALCIUM ACETATE 667 MG TABLET PO SCH ×3 (09:17→17:18)
[2018-06-30] MEDS: TOPIRAMATE 100 MG TABLET PO SCH ×2 (09:18→21:33)
[2018-06-30] MEDS: CARVEDILOL 12.5 MG TABLET PO SCH ×2 (09:19→21:33)
[2018-06-30] MEDS: hydrALAZINE HCL 50 MG TABLET PO SCH ×2 (09:19→17:18)
[2018-06-30] MEDS: GABAPENTIN 100 MG CAPSULE PO SCH ×3 (09:20→17:18)
[2018-06-30 10:00] VITALS: BP 158/89
[2018-06-30] MEDS ORDERED: EPOETIN ALFA (10,000 UNIT) 10,000 UNIT/ML VIAL IV ONE (10:30)
--- NOTE | 2018-06-30 11:00 | NUR ---
rn notes pt seen by Dr Sahni; pt wanted ivhl removed. said ok to remove line and have no access
[2018-06-30] MEDS: diphenhydrAMINE HCL 50 MG/ML VIAL IV PRN (13:12)
--- NOTE | 2018-06-30 15:32 | NUR ---
CHARGE NOTES HEMODIALYSIS COMPLETED. 4000 ML REMOVED.
[2018-06-30 16:00] VITALS: BP 156/81
--- NOTE | 2018-06-30 18:57 | NUR ---
rn end notes no significant change during this shift. hd site secured with dressing, no bleeding noted. pt has no c/o pain or sob, still noted with edema. dialyzed today and tolerated well. will endorse to next shift for continuity of care in stable condition.
--- NOTE | 2018-06-30 19:30 | NUR ---
RECEIVED PATIENT AWAKE, SITTING UP IN BED. AO X 3, ABLE TO MAKE NEEDS KNOWN. NO ACUTE DISTRESS NOTED. MONITORED FOR PAIN. AV SHUNT INTACT WITH DRESSING INTACT. SAFETY REMINDERS GIVEN. ON LOW BED WITH BILATERAL UPPER SIDE RAILS UP. CALL STERN WITHIN EASY REACH. WILL CONTINUE TO MONITOR.
[2018-06-30 20:00] VITALS: BP 151/80
[2018-07-01 06:20] LABS: BASOPHILS % (AUTO) 0.8 % (0.0-2.0); HEMATOCRIT 21 % (33-45); LYMPHOCYTES # (AUTO) 0.8 /CMM (0.8-4.8); LYMPHOCYTES % (AUTO) 25.3 % (20.0-44.0); MEAN CORPUSCULAR HGB CONC 33 g/dl (31.0-36.0); MEAN CORPUSCULAR VOLUME 102 fL (82-100); MONOCYTES # (AUTO) 0.6 /CMM (0.1-1.30); MONOCYTES % (AUTO) 18.7 % (2.0-12.0); NEUTROPHILS # (AUTO) 1.6 /CMM (1.8-8.9); NEUTROPHILS % (AUTO) 48.2 % (43.0-81.0); PLATELET COUNT (AUTO) 96 /CMM (150-450); RED BLOOD CELL COUNT(AUTO) 2.03 MIL/uL (4.0-5.2); WHITE BLOOD COUNT (AUTO) 3.3 K/uL (4.3-11.0)
[2018-07-01 06:37] LABS: CALCIUM, SERUM 6.9 mg/dL (8.5-10.1); POTASSIUM 4.7 mmol/L (3.5-5.1)
[2018-07-01 06:38] LABS: CREATININE 7.8 mg/dL (0.6-1.3)
[2018-07-01 06:39] LABS: HEMOGLOBIN 6.9 g/dL (11.5-14.8)
--- NOTE | 2018-07-01 06:43 | NUR ---
PATIENT ASLEEP, EASILY AROUSABLE. RESPIRATIONS EVEN. NO SIGNS OF PAIN NOTED. DUE MEDS GIVEN WITH NO ASE NOTED. NEEDS ATTENDED. SAFETY PRECAUTIONS AND COMFORT MEASURES IN PLACE. WILL GIVE REPORT TO DAY SHIFT FOR CONTINUITY OF CARE.
--- NOTE | 2018-07-01 06:57 | NUR ---
PAGED CARMELA MALL PLANT CARETAKER TO RELAY CRITICAL LABS: HGB 6.9 AND CREAT 7.8; WAITING FOR CALL BACK. WILL ENDORSE TO DAY SHIFT.
[2018-07-01 07:29] LABS: EOSINOPHILS % (MANUAL) 3 % (0-4); LYMPHOCYTES % (MANUAL) 28 % (16-48); MONOCYTES % (MANUAL) 12 % (0-11.0); NEUTROPHILS % (MANUAL) 57 (42-76)
--- NOTE | 2018-07-01 07:30 | NUR ---
ms rn received on bed, awake,alert,oriented x2,not in any form of distress, respirations even and unlabored,no sob noted,lungs are clear,abdomen soft, positive bowel sounds, denies pain at this time,all needs attended.
[2018-07-01 08:00] VITALS: BP 125/67
[2018-07-01] MEDS: TOPIRAMATE 100 MG TABLET PO SCH ×2 (08:15→21:21)
[2018-07-01] MEDS: CITALOPRAM HYDROBROMIDE 20 MG TABLET PO SCH (08:15)
[2018-07-01] MEDS: GABAPENTIN 100 MG CAPSULE PO SCH ×3 (08:15→16:47)
[2018-07-01] MEDS: CALCIUM ACETATE 667 MG TABLET PO SCH ×3 (08:16→16:49)
[2018-07-01 08:34] LABS: BILIRUBIN,TOTAL 0.3 mg/dL (0.2-1.0); MAGNESIUM 2.1 mg/dL (1.8-2.4); PHOSPHORUS 4.2 mg/dL (2.5-4.9)
--- NOTE | 2018-07-01 09:00 | NUR ---
ms rn breakfast served,due meds given,tolerated well. held b/p meds at this time, might have a hd today.
[2018-07-01 09:18] LABS: BILIRUBIN,DIRECT 0.1 mg/dL (0.0-0.2)
--- NOTE | 2018-07-01 10:00 | NUR ---
ms rn dr. ayala aware of hemoglobin, will ask nephro if ok to transfuse.
--- NOTE | 2018-07-01 10:00 | NUR ---
ms rn dr. hanley put order to have hd in am.
--- NOTE | 2018-07-01 10:50 | NUR ---
ms rn was seen by dr. ayala, have order to repeat cbc, to know in will order bt.
[2018-07-01] MEDS: LOSARTAN POTASSIUM 25 MG TABLET PO SCH (12:35)
[2018-07-01] MEDS: hydrALAZINE HCL 50 MG TABLET PO SCH ×2 (12:36→16:48)
[2018-07-01] MEDS: CARVEDILOL 12.5 MG TABLET PO SCH ×2 (12:36→21:21)
--- NOTE | 2018-07-01 13:00 | NUR ---
ms conley b/p meds given, tolerated well.
[2018-07-01 14:36] LABS: HEMOGLOBIN 7.6 g/dL (11.5-14.8)
[2018-07-01 16:00] VITALS: BP 134/70
--- NOTE | 2018-07-01 18:51 | NUR ---
ms rn on bed, no distress noted,all needs attended.
--- NOTE | 2018-07-01 19:50 | NUR ---
MS RN NOTE: PATIENT RESTING IN BED, NO ACUTE DISTRESS NOTED. BREATHING EVEN AND UNLABORED, NO SOB NOTED. KATERIN AV SHUNT IN PLACE, NO BLEEDING NOTED. BED LOCKED AND IN LOWEST POSITION, CALL LIGHT IN REACH. WILL CONTINUE TO MONITOR.
[2018-07-01 20:34] VITALS: BP 156/84
--- NOTE | 2018-07-01 22:00 | NUR ---
MS RN NOTE: PATIENT COMPLAINED OF BACK PAIN AND REQUEST MEDICATION. NORCO 5/325MG 1 TAB REMOVED, BUT WHEN TRYING TO GIVE TO PATIENT, PATIENT REFUSED MEDICATION AND WANTS SOMETHING MORE THAN NORCO. EXPLAINED THAT NORCO IS THE ONLY PAIN MEDICATIONS ORDERED AND THAT MD WANTED TO AVOID IV PAIN MEDICATION. PATIENT CONTINUES TO REFUSE NORCO, MEDICATION RETURNED. WILL CONTINUE TO MONITOR.
[2018-07-02 00:20] VITALS: BP 156/84
[2018-07-02 04:23] VITALS: BP 150/80
--- NOTE | 2018-07-02 06:20 | NUR ---
MS RN NOTE: PATIENT RESTING IN BED, NO ACUTE DISTRESS NOTED. BREATHING EVEN AND UNLABORED, NO SOB NOTED. KATERIN AV SHUNT IN PLACE, NO BLEEDING NOTED. BED LOCKED AND IN LOWEST POSITION, CALL LIGHT IN REACH. WILL ENDORSE TO DAY NURSE TO CONTINUE WITH PLAN OF CARE.
[2018-07-02 06:37] LABS: BASOPHILS % (AUTO) 0.7 % (0.0-2.0); HEMATOCRIT 23 % (33-45); HEMOGLOBIN 7.5 g/dL (11.5-14.8); LYMPHOCYTES # (AUTO) 1.3 /CMM (0.8-4.8); LYMPHOCYTES % (AUTO) 28.1 % (20.0-44.0); MEAN CORPUSCULAR HGB CONC 33 g/dl (31.0-36.0); MEAN CORPUSCULAR VOLUME 103 fL (82-100); MONOCYTES # (AUTO) 0.8 /CMM (0.1-1.30); NEUTROPHILS # (AUTO) 2.1 /CMM (1.8-8.9); NEUTROPHILS % (AUTO) 46.2 % (43.0-81.0); PLATELET COUNT (AUTO) 107 /CMM (150-450); RED BLOOD CELL COUNT(AUTO) 2.18 MIL/uL (4.0-5.2); WHITE BLOOD COUNT (AUTO) 4.6 K/uL (4.3-11.0)
[2018-07-02 06:53] LABS: CALCIUM, SERUM 8.5 mg/dL (8.5-10.1); POTASSIUM 4.8 mmol/L (3.5-5.1)
--- NOTE | 2018-07-02 07:45 | NUR ---
MS RN OPENING NOTES RECEIVED PATIENT IN STABLE CONDITION. IN NO APPARENT DISTRESS. BEDSIDE RAILS ARE UPX2. BED IS LOCKED AND LOWERED. CALL LIGHT IS WITHIN REACH. WILL CONTINUE TO MONITOR PATIENT.
[2018-07-02 07:50] LABS: CREATININE 9.4 mg/dL (0.6-1.3)
[2018-07-02 08:00] VITALS: BP 150/83
[2018-07-02] MEDS: CALCIUM ACETATE 667 MG TABLET PO SCH ×2 (08:00→13:23)
[2018-07-02 09:00] VITALS: BP 150/83
[2018-07-02] MEDS: LOSARTAN POTASSIUM 25 MG TABLET PO SCH (09:00)
[2018-07-02] MEDS: CITALOPRAM HYDROBROMIDE 20 MG TABLET PO SCH (09:00)
[2018-07-02] MEDS ORDERED: EPOETIN ALFA (10,000 UNIT) 10,000 UNIT/ML VIAL IV ONE (09:00)
[2018-07-02] MEDS: CARVEDILOL 12.5 MG TABLET PO SCH (09:00)
[2018-07-02] MEDS: hydrALAZINE HCL 50 MG TABLET PO SCH (09:00)
[2018-07-02] MEDS: GABAPENTIN 100 MG CAPSULE PO SCH ×2 (09:00→13:23)
[2018-07-02] MEDS: TOPIRAMATE 100 MG TABLET PO SCH (09:00)
[2018-07-02] MEDS: diphenhydrAMINE HCL 50 MG/ML VIAL IV PRN (10:42)
--- NOTE | 2018-07-02 16:28 | NUR ---
PATIENT LEFT AGAINST MEDICAL ADVICE. DISCUSSED RISKS AND BENEFITS. PATIENT INSISTS ON LEAVING. REMOVED ID BAND. PATIENT DID NOT HAVE AN IV ACCESS.
== END 2018-07-02 16:27 | disposition left against medical advice (07) | DRG 425 ==
LOC: ER 03:11 → TELE1 05:45 → MEDSG1 09:40
PROVIDERS: ADMIT Family Medicine; ATTEND Family Medicine
PROC: 5A1D70Z Performance of Urinary Filtration, Intermittent, Less than 6 Hours Per Day (ICD-10-PCS; principal; 2018-06-29)
PROC: 5A1D70Z Performance of Urinary Filtration, Intermittent, Less than 6 Hours Per Day (ICD-10-PCS; 2018-06-30)
PROC: 5A1D70Z Performance of Urinary Filtration, Intermittent, Less than 6 Hours Per Day (ICD-10-PCS; 2018-07-02)
DX: E87.70 Fluid overload, unspecified (principal); D61.818 Other pancytopenia; D69.6 Thrombocytopenia, unspecified; I12.0 Hypertensive chronic kidney disease with stage 5 chronic kidney disease or end stage renal disease; N18.6 End stage renal disease; N25.81 Secondary hyperparathyroidism of renal origin; I16.0 Hypertensive urgency; Z59.0 Homelessness; Z99.2 Dependence on renal dialysis; Z91.15 Patient's noncompliance with renal dialysis; Z88.8 Allergy status to other drugs, medicaments and biological substances; Z91.19 Patient's noncompliance with other medical treatment and regimen; Z79.82 Long term (current) use of aspirin; Z79.01 Long term (current) use of anticoagulants; Z86.718 Personal history of other venous thrombosis and embolism; D63.1 Anemia in chronic kidney disease; G89.29 Other chronic pain; E87.5 Hyperkalemia; J45.909 Unspecified asthma, uncomplicated; F32.9 Major depressive disorder, single episode, unspecified; Z86.69 Personal history of other diseases of the nervous system and sense organs
CPT/HCPCS: 36415; 71045-TC; 80048-TC; 80061-TC; 80076-TC; 83540-TC; 83735-TC; 84100-TC; 84443-TC; 84484-TC; 84702-TC; 85025-TC; 85027-TC; 85730-TC; 86704; 86705; 86706; 86803; 86850-TC; 86921-TC; 87081-TC; 87340; 90935-TC; G0378; J0885; J1200; J1940

== ENCOUNTER 2018-08-01 00:59 | Emergency (ER) | payer MEDICAID ==
[~2018-08-01] VITALS: Ht 175.3 cm; Wt 90.7 kg
--- NOTE | 2018-08-01 02:15 | NUR ---
MD AT BEDSIDE FOR EVALUATION
--- NOTE | 2018-08-01 02:15 | NUR ---
PT BIBSELF C/O LEFT SIDE MOUTH PAIN X1 DAY. NOTED FACIAL SWELLING AND LIP SWELLING. PT DENIES SOB, RECENT DENTAL PROCEDURE, NEW FOOD/PRODUCTS. PT AAOX4. RESPIRATIONS EVEN AND UNLABORED. SKIN WARM AND INTACT. NO ACUTE DISTRESS NOTED AT THIS TIME. WILL CONTINUE TO MONITOR.
[2018-08-01] MEDS ORDERED: CLINDAMYCIN 900 MG/6 ML VIAL ONE (02:21)
[2018-08-01] MEDS ORDERED: DEXAMETHASONE SOD PHOSPHATE 10 MG/ML VIAL ONE (02:21)
[2018-08-01] MEDS ORDERED: MORPHINE SULFATE INJ 4 MG/ML DISP.SYRIN ONE (02:22)
[2018-08-01] MEDS ORDERED: KETOROLAC TROMETHAMINE INJ 30 MG/ML VIAL ONE (02:22)
[2018-08-01] MEDS ORDERED: DEXAMETHASONE SOD PHOSPHATE 10 MG/ML VIAL IV ONE (02:30)
[2018-08-01] MEDS ORDERED: KETOROLAC TROMETHAMINE INJ 30 MG/ML VIAL IV ONE (02:30)
[2018-08-01] MEDS ORDERED: MORPHINE SULFATE INJ 2 MG/ML DISP.SYRIN IV ONE ×2 (02:30→04:00)
[2018-08-01] MEDS ORDERED: IV NS 0.9% 1,000 ML BAG IV ONE (02:30)
[2018-08-01] MEDS ORDERED: CLINDAMYCIN 900 MG in IV D5W 100 ML IV ONE (02:30)
--- NOTE | 2018-08-01 02:32 | NUR ---
IV INITIATED RIGHT FOREARM 20G. LABS DRAWN FROM SITE. FORMULA ROOM WORKER AT BEDSIDE FOR COLLECTION. IV INTACT AND PATENT
[2018-08-01 02:39] LABS: EOSINOPHILS % (AUTO) 7.1 % (0.0-6.0); HEMATOCRIT 24 % (33-45); HEMOGLOBIN 7.9 g/dL (11.5-14.8); LYMPHOCYTES # (AUTO) 0.9 /CMM (0.8-4.8); LYMPHOCYTES % (AUTO) 21.7 % (20.0-44.0); MEAN CORPUSCULAR HGB CONC 33 g/dl (31.0-36.0); MEAN CORPUSCULAR VOLUME 105 fL (82-100); MONOCYTES # (AUTO) 0.6 /CMM (0.1-1.30); MONOCYTES % (AUTO) 15.4 % (2.0-12.0); NEUTROPHILS # (AUTO) 2.1 /CMM (1.8-8.9); NEUTROPHILS % (AUTO) 54.8 % (43.0-81.0); PLATELET COUNT (AUTO) 131 /CMM (150-450); RED BLOOD CELL COUNT(AUTO) 2.32 MIL/uL (4.0-5.2); WHITE BLOOD COUNT (AUTO) 3.9 K/uL (4.3-11.0)
[2018-08-01 02:45] LABS: POTASSIUM 4.2 mmol/L (3.5-5.1)
--- NOTE | 2018-08-01 02:50 | NUR ---
PER VERBAL MD ORDER, STOPPED IV FLUIDS
[2018-08-01 02:59] LABS: CREATININE 9.3 mg/dL (0.6-1.3)
[2018-08-01] MEDS ORDERED: MORPHINE SULFATE INJ 2 MG/ML DISP.SYRIN ONE (04:00)
--- NOTE | 2018-08-01 04:00 | NUR ---
NOTED EPITAXIS X10 MIN. AWARE
--- NOTE | 2018-08-01 05:02 | NUR ---
Patient discharged to home in stable condition. Written and verbal after care instructions given. Patient verbalizes understanding of instruction. IV removed. Catheter intact and site benign. Pressure and 4x4 applied to site. No bleeding noted. Pt ambulatory with a steady gait. Instructed not to drive, pt verbalized understanding
[2018-08-01 05:44] VITALS: BP 161/110
== END 2018-08-01 05:44 | disposition home or self-care (01) ==
LOC: ER 01:08
DX: K02.9 Dental caries, unspecified (principal); I12.9 Hypertensive chronic kidney disease with stage 1 through stage 4 chronic kidney disease, or unspecified chronic kidney disease; N18.9 Chronic kidney disease, unspecified; R04.0 Epistaxis; G51.0 Bell's palsy; Z86.718 Personal history of other venous thrombosis and embolism; Z88.1 Allergy status to other antibiotic agents; Z59.0 Homelessness; Z79.82 Long term (current) use of aspirin
CPT/HCPCS: 36415; 80048-TC; 85025-TC; J1100; J1885; J2270; J3490; J7030; J7060

== ENCOUNTER 2018-08-06 02:12 | Inpatient (IN) | payer MEDICAID ==
[2018-08-06] VITALS (12 sets, daily range): BP systolic 157–185; BP diastolic 84–119
[~2018-08-06] VITALS: Ht 165.1 cm; Wt 92.5 kg
--- NOTE | 2018-08-06 02:20 | NUR ---
PT BIBSELF C/O LEFT SIDE BREAST SWELLING AND CHEST PAIN X1 DAY. PT ALSO COMPLAINING OF SOB, BUT STATES SHE NORMALLY FEELS THIS WAY. PT DENIES N/V/D,HEADACHE, DIZZINESS. PT AAOX4. SKIN WARM AND INTACT. NO ACUTE DISTRESS NOTED AT THIS TIME. PLACED ON MONITOR, WILL CONTINUE TO MONITOR.
--- NOTE | 2018-08-06 02:40 | NUR ---
MD AT BEDSIDE FOR EVALUATION
--- NOTE | 2018-08-06 02:50 | NUR ---
IV INITIATED RIGHT FOREARM 20G. LABS DRAWN FROM SITE. MEAT CARVER AT BEDSIDE FOR COLLECTION. IV INTACT AND PATENT, PLACED ON SALINE LOCK
--- NOTE | 2018-08-06 02:53 | NUR ---
RADIOLOGY AT BEDSIDE FOR CXR
[2018-08-06 03:00] LABS: BASOPHILS % (AUTO) 0.3 % (0.0-2.0); HEMATOCRIT 26 % (33-45); HEMOGLOBIN 8.4 g/dL (11.5-14.8); LYMPHOCYTES # (AUTO) 0.8 /CMM (0.8-4.8); LYMPHOCYTES % (AUTO) 22.5 % (20.0-44.0); MEAN CORPUSCULAR HGB CONC 33 g/dl (31.0-36.0); MEAN CORPUSCULAR VOLUME 104 fL (82-100); MONOCYTES # (AUTO) 0.4 /CMM (0.1-1.30); MONOCYTES % (AUTO) 12.3 % (2.0-12.0); NEUTROPHILS # (AUTO) 2.1 /CMM (1.8-8.9); NEUTROPHILS % (AUTO) 58.9 % (43.0-81.0); PLATELET COUNT (AUTO) 136 /CMM (150-450); RED BLOOD CELL COUNT(AUTO) 2.47 MIL/uL (4.0-5.2); WHITE BLOOD COUNT (AUTO) 3.5 K/uL (4.3-11.0)
--- NOTE | 2018-08-06 03:02 | NUR ---
PT HYPERTENSIVE, MD AWARE
[2018-08-06 03:14] LABS: ALANINE AMINOTRANSFERASE 56 U/L (12-78); ALBUMIN 3.6 g/dL (3.4-5.0); ALKALINE PHOSPHATASE 114 U/L (46-116); ASPARTATE AMINOTRANSFERASE 31 U/L (15-37); BILIRUBIN,DIRECT 0.1 mg/dL (0.0-0.2); BILIRUBIN,TOTAL 0.3 mg/dL (0.2-1.0); CARBON DIOXIDE 27 mmol/L (21-32); CHLORIDE 103 mmol/L (98-107); GLUCOSE 100 mg/dL (74-106); POTASSIUM 4.2 mmol/L (3.5-5.1); SODIUM SERUM 144 mmol/L (136-145); TOTAL PROTEIN, SERUM 6.9 g/dL (6.4-8.2)
[2018-08-06 03:16] LABS: CREATININE 10.6 mg/dL (0.6-1.3)
[2018-08-06 03:17] LABS: UREA NITROGEN, BLOOD 91 mg/dL (7-18)
[2018-08-06] MEDS ORDERED: ONDANSETRON HCL/PF 4 MG/2 ML VIAL ONE (03:20)
[2018-08-06] MEDS ORDERED: BUMETANIDE INJ 0.25 MG/ML VIAL ONE (03:20)
[2018-08-06] MEDS ORDERED: MORPHINE SULFATE INJ 2 MG/ML DISP.SYRIN IV ONE (03:30)
[2018-08-06] MEDS ORDERED: HYDROMORPHONE 1 MG/1 ML DISP.SYRIN IV ONE (03:30)
[2018-08-06] MEDS ORDERED: ONDANSETRON HCL/PF - ER 4 MG/2 ML VIAL IV ONE (03:30)
[2018-08-06] MEDS ORDERED: BUMETANIDE INJ 0.25 MG/ML VIAL IV ONE (03:30)
[2018-08-06] MEDS ORDERED: NTG 50 MG/D5W250 ML BOTTL 250 ML IV ONE (03:30)
--- NOTE | 2018-08-06 03:48 | NUR ---
US AT BEDSIDE
[2018-08-06] MEDS ORDERED: ASPIRIN 81 MG TAB.CHEW PO ONE (04:00)
[2018-08-06] MEDS ORDERED: ACETAMINOPHEN 325 MG TABLET PO PRN (04:30)
[2018-08-06] MEDS ORDERED: NTG 50 MG/D5W250 ML BOTTL 250 ML IV PRN (04:30)
[2018-08-06] MEDS ORDERED: TEMAZEPAM 15 MG CAPSULE PO PRN (04:30)
[2018-08-06] MEDS ORDERED: MAGNESIUM HYDROXIDE 30 ML UDC PO PRN (04:30)
[2018-08-06] MEDS ORDERED: ONDANSETRON HCL/PF 4 MG/2 ML VIAL IVP PRN (04:30)
[2018-08-06] MEDS ORDERED: MAG HYDROX/AL HYDROX/SIMETH 30 ML UDC PO PRN (04:30)
--- NOTE | 2018-08-06 05:28 | NUR ---
GAVE REPORT TO SUNNY [address] FOR FRANSICO
--- NOTE | 2018-08-06 05:45 | NUR ---
TRANSFERRED PT TO ICU 256 PER ACLS PROTOCOL
[2018-08-06] MEDS: HYDROCODONE/APAP 5/325MG 1 EACH TABLET PO PRN ×2 (06:51→11:07)
--- NOTE | 2018-08-06 07:12 | NUR ---
ICU/RN RECEIVED PT FROM ER W/ NTG AT 90MCG/MIN.MONITOR SHOWS SR,OFFERS NO COMPLAINTS.
--- NOTE | 2018-08-06 07:15 | NUR ---
ICU/RN REPORT AND CARE OF PT. GIVEN TO MAYA.
--- NOTE | 2018-08-06 07:30 | NUR ---
RN INITIAL NOTES 0715 RECEIVED PT AWAKE, A/OX4. ON ROOM AIR. NO RESPIRATORY DISTRESS NOTED. NO SOB NOTED. C/O PAIN, GIVEN NORCO PO. WILL MONITOR FOR EFFECTIVENESS. IV LINES IN PLACE. ON NGT DRIP AT 120MCG/MIN. WILL CLOSELY MONITOR BP. NOTED KATERIN AV FISTULA, BRUIT AND THRILL PRESENT. PT CLEAN AND DRY. CALL LIGHT WITHIN REACH. WILL MONITOR. 0730 SEEN AND EXAMINED BY DR WARE. REVIEWED H&P, LAB VALUES AND CXR RESULT. MD ORDERED ECHO, DC NTG DRIP AND START HYDRALAZINE 50MG TID. NOTED AND CARRIED OUT. WILL MONITOR. PT ALSO SEEN BY DR COMER. AWARE OF LAB VALUES AND IMAGING STUDIES. POSSIBLE HD TODAY.
[2018-08-06] MEDS: hydrALAZINE HCL 50 MG TABLET PO SCH ×2 (08:05→12:08)
[2018-08-06] MEDS: CALCIUM ACETATE 667 MG TABLET PO SCH ×2 (08:05→12:05)
--- NOTE | 2018-08-06 08:30 | NUR ---
RN NOTES SEEN AND EXAMINED BY EILEEN GALINDO NP. REVIEWED H&P, CURRENT LAB WORKS AND IMAGING STUDIES. PT SEEN BY DR WARE AND DR COMER. NTG JENNIFER PALENCIA'Shawn. PT FOR POSSIBLE HD TODAY. PT'S SBP REMAINS 170-180S. PER GRADING CLERK, WILL REVIEW CURRENT MEDS FIRST. WILL CLOSELY MONITOR.
[2018-08-06] MEDS ORDERED: CITALOPRAM HYDROBROMIDE SOLN 10 MG/5 ML UDC PO SCH (09:00)
[2018-08-06] MEDS ORDERED: APIXABAN 2.5 MG TABLET PO SCH (09:00)
[2018-08-06] MEDS ORDERED: TOPIRAMATE 100 MG TABLET PO SCH (09:00)
[2018-08-06] MEDS ORDERED: ASPIRIN 81 MG TAB.CHEW PO SCH (09:00)
[2018-08-06] MEDS ORDERED: CITALOPRAM HYDROBROMIDE 20 MG TABLET PO SCH (10:00)
--- NOTE | 2018-08-06 10:45 | NUR ---
RN NOTES PT TRANSFERRED TO ROOM 312-2. PT A/OX4. NO RESPIRATORY DISTRESS NOTED. IN STABLE CONDITION. YENIFER REN TOOK OVER PT'S CARE.
--- NOTE | 2018-08-06 10:45 | NUR ---
RECEIVED PT FROM ICU. PT AWAKE A/O X4. 2 IV ASSESS RFA F20 AND RFA G20 , FLUSHING WELL. NO SKIN ISSUES. PT PLACED IN ROOM 312-2, AND ORIENTED TO UNIT AND ROOM . SAFETY PRECAUTIONS IN PLACE , CALL LIGHT WITHIN REACH. PT WILL HAVE HD TODAY.
--- NOTE | 2018-08-06 11:00 | NUR ---
PT BP IS 179/106 77 HR , O2 SATURATION 100% ON ROOM AIR. PT ASKING FOR PAIN MEDICINE FOR GENERALIZED PAIN, NORCO WAS OFFERED, PT REFUSED NORCO AND ASKING FOR STRONGER IV PAIN MEDS. NO NEW ORDERS AT THIS TIME. PER EILEEN COKE INSPECTOR GIVE SCHEDULED MEDS AND WAIT FOR HD.
--- NOTE | 2018-08-06 11:00 | NUR ---
[place] PO WAS SCANNED AND OPENED. PATIENT REFUSED MED. WILL WAIST MEDICATION
--- NOTE | 2018-08-06 11:10 | NUR ---
SHREE WAS PROPERLY WAISTED IN MED ROOM, DMITRIY RN WITNESSED
--- NOTE | 2018-08-06 11:15 | NUR ---
PT UNCOOPERATIVE AND WANTS TO LEAVE HOSPITAL. EILEEN MCLAIN NOTIFIED
--- NOTE | 2018-08-06 12:20 | NUR ---
PATIENT REFUSED FURTHER TREATMENT AND HEMODIALYSES SCHEDULED FOR TODAY.EDUCATION REGARDING IMPORTANCE OF HD AND TREATMENT PROVIDED, PATIENT STATED SHE HAS HD SCHEDULED OUTPATIENT CLINIC. PATIENT SIGHED AMA FORM. IV LINES REMOVED, NO BLEEDING AT THE SITE.ID WRIST BAND REMOVED. PATIENT HAS ALL BELONGINGS WITH HER, REFUSED TO SIGN VALUABLE FORM.
== END 2018-08-06 12:20 | disposition left against medical advice (07) | DRG 199 ==
LOC: ER 02:16 → ICU 04:56 → MED 10:33
PROVIDERS: ADMIT Registered Nurse; ATTEND Registered Nurse
PROC: 5A1D70Z Performance of Urinary Filtration, Intermittent, Less than 6 Hours Per Day (ICD-10-PCS; principal; 2018-08-06)
DX: I16.1 Hypertensive emergency (principal); D61.818 Other pancytopenia; N18.6 End stage renal disease; E87.70 Fluid overload, unspecified; I12.0 Hypertensive chronic kidney disease with stage 5 chronic kidney disease or end stage renal disease; Z91.15 Patient's noncompliance with renal dialysis; R07.9 Chest pain, unspecified; N64.4 Mastodynia; G89.4 Chronic pain syndrome; Z86.718 Personal history of other venous thrombosis and embolism; Z79.01 Long term (current) use of anticoagulants; G40.909 Epilepsy, unspecified, not intractable, without status epilepticus; G51.0 Bell's palsy; Z59.0 Homelessness; D63.1 Anemia in chronic kidney disease; J45.909 Unspecified asthma, uncomplicated; Z99.2 Dependence on renal dialysis
CPT/HCPCS: 36415; 71045-TC; 76642-TC; 80048-TC; 80076-TC; 84484-TC; 84702-TC; 85025-TC; 85730-TC; 87081-TC; 93307-TC; G0378; J2405; J3490

== ENCOUNTER 2018-09-10 07:36 | Emergency (ER) | payer MEDICAID ==
[~2018-09-10] VITALS: Ht 165.1 cm; Wt 92.5 kg
--- NOTE | 2018-09-10 07:36 | NUR ---
BIB [facility] W C/O LOWER ABDOMINAL PAIN, SOB, L SIDED CHEST PAIN (PRESSURE AND ACHING), L & R BREAST SWELLING UP TO NECK AND FACE, KATERIN FISTULA NOTED, LAST DIALYSIS 09/07/18, TO ER BED 12, HOOKED TO MONITOR, CHANGED TO GOWN, PROVIDED W WARM BLANKET, DR RASMUSSEN AT BEDSIDE FOR EVAL.
--- NOTE | 2018-09-10 08:00 | NUR ---
SEEN AND EXAMINED BY DR. RSAMUSSEN.
--- NOTE | 2018-09-10 08:21 | NUR ---
ER PHLEB AT BEDSIDE FOR BLOOD DRAW.
[2018-09-10 08:30] LABS: BASOPHILS # (AUTO) 0.1 /CMM (0.0-0.2); BASOPHILS % (AUTO) 1.2 % (0.0-2.0); EOSINOPHILS % (AUTO) 16.9 % (0.0-6.0); HEMATOCRIT 26 % (33-45); HEMOGLOBIN 8.4 g/dL (11.5-14.8); LYMPHOCYTES # (AUTO) 0.7 /CMM (0.8-4.8); LYMPHOCYTES % (AUTO) 13.4 % (20.0-44.0); MEAN CORPUSCULAR HGB CONC 32 g/dl (31.0-36.0); MEAN CORPUSCULAR VOLUME 101 fL (82-100); MONOCYTES # (AUTO) 0.5 /CMM (0.1-1.30); MONOCYTES % (AUTO) 8.9 % (2.0-12.0); NEUTROPHILS # (AUTO) 3.3 /CMM (1.8-8.9); NEUTROPHILS % (AUTO) 59.6 % (43.0-81.0); PLATELET COUNT (AUTO) 140 /CMM (150-450); RED BLOOD CELL COUNT(AUTO) 2.55 MIL/uL (4.0-5.2); WHITE BLOOD COUNT (AUTO) 5.6 K/uL (4.3-11.0)
--- NOTE | 2018-09-10 08:34 | NUR ---
CASKET INSPECTOR AT BEDSIDE FOR XRAY.
[2018-09-10 08:35] LABS: CALCIUM, SERUM 7.2 mg/dL (8.5-10.1); POTASSIUM 4.4 mmol/L (3.5-5.1)
[2018-09-10 08:37] LABS: CREATININE 12.5 mg/dL (0.6-1.3)
--- NOTE | 2018-09-10 09:05 | NUR ---
PT STATED THAT SHE IS NOT HOMELESS AND WILL MOVE IN WITH HER MOM IN [place].
[2018-09-10] MEDS ORDERED: CEPHALEXIN MONOHYDRATE 500 MG CAPSULE PO ONE ×2 (11:00→11:01)
[2018-09-10] MEDS ORDERED: oxyCODONE/APAP (5/325 MG) 1 UDTAB TABLET PO ONE (11:00)
[2018-09-10] MEDS ORDERED: oxyCODONE/APAP (5/325 MG) 1 UDTAB TABLET ONE (11:01)
--- NOTE | 2018-09-10 11:13 | NUR ---
Patient discharged to home in stable condition. Written and verbal after care instructions given. Patient verbalizes understanding of instruction.
[2018-09-10 11:14] VITALS: BP 141/98
== END 2018-09-10 11:26 | disposition home or self-care (01) ==
LOC: ER 07:38
DX: N61.0 Mastitis without abscess (principal); I12.0 Hypertensive chronic kidney disease with stage 5 chronic kidney disease or end stage renal disease; N18.6 End stage renal disease; N17.9 Acute kidney failure, unspecified; G40.909 Epilepsy, unspecified, not intractable, without status epilepticus; F32.9 Major depressive disorder, single episode, unspecified; D69.6 Thrombocytopenia, unspecified; G89.4 Chronic pain syndrome; G51.0 Bell's palsy; Z99.2 Dependence on renal dialysis; Z86.718 Personal history of other venous thrombosis and embolism; Z88.1 Allergy status to other antibiotic agents; Z59.0 Homelessness; Z79.82 Long term (current) use of aspirin
CPT/HCPCS: 36415; 71045-TC; 80048-TC; 83880; 84484-TC; 85025-TC; 85730-TC

== ENCOUNTER 2018-09-16 09:02 | Emergency (ER) | payer MEDICAID ==
[~2018-09-16] VITALS: Ht 165.1 cm; Wt 92.5 kg
--- NOTE | 2018-09-16 09:10 | NUR ---
PT AMBULATORY TO ER BED 11 C/O ABDOMINAL PAIN WORST TO PERIUMBILLICAL AREA X 1 1/12-2 DAYS. PT DENIES N/V/D. DIALYSIS PT. LAST DIALYZED YESTERDAY. GOWNED AND PLACED ON MONITOR. 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 AFEBRILE. AWAITING MD ROOT.
--- NOTE | 2018-09-16 09:19 | NUR ---
DR SPRAGUE AT BEDSIDE FOR EVAL.
--- NOTE | 2018-09-16 09:26 | NUR ---
IV LINE STARTED BLOOD DRAWN AND SENT TO LAB.
[2018-09-16] MEDS ORDERED: oxyCODONE/APAP (5/325 MG) 1 UDTAB TABLET PO ONE (09:30)
[2018-09-16] MEDS ORDERED: MAG HYDROX/AL HYDROX/SIMETH 30 ML UDC PO ONE (09:30)
[2018-09-16] MEDS ORDERED: MAG HYDROX/AL HYDROX/SIMETH 30 ML UDC ONE (09:31)
[2018-09-16] MEDS ORDERED: oxyCODONE/APAP (5/325 MG) 1 UDTAB TABLET ONE (09:32)
[2018-09-16 09:34] LABS: BASOPHILS % (AUTO) 0.4 % (0.0-2.0); EOSINOPHILS % (AUTO) 17.1 % (0.0-6.0); HEMATOCRIT 24 % (33-45); LYMPHOCYTES # (AUTO) 0.3 /CMM (0.8-4.8); LYMPHOCYTES % (AUTO) 9.5 % (20.0-44.0); MEAN CORPUSCULAR HGB CONC 33 g/dl (31.0-36.0); MEAN CORPUSCULAR VOLUME 101 fL (82-100); MONOCYTES # (AUTO) 0.4 /CMM (0.1-1.30); PLATELET COUNT (AUTO) 91 /CMM (150-450); WHITE BLOOD COUNT (AUTO) 3.3 K/uL (4.3-11.0)
[2018-09-16 09:39] LABS: CALCIUM, SERUM 6.6 mg/dL (8.5-10.1)
[2018-09-16 09:40] LABS: CREATININE 10.3 mg/dL (0.6-1.3)
--- NOTE | 2018-09-16 09:45 | NUR ---
OBTAINED WAIVER FRO CT ABDOMEN.
[2018-09-16 09:46] LABS: BILIRUBIN,DIRECT 0.1 mg/dL (0.0-0.2); BILIRUBIN,TOTAL 0.2 mg/dL (0.2-1.0)
[2018-09-16 09:47] LABS: ALBUMIN 2.9 g/dL (3.4-5.0); TOTAL PROTEIN, SERUM 6.1 g/dL (6.4-8.2)
--- NOTE | 2018-09-16 09:47 | NUR ---
PT TO RADIOLOGY FOR ABDOMINAL CT SCAN VIA [facility].
--- NOTE | 2018-09-16 09:47 | NUR ---
LEFT FOR CT
--- NOTE | 2018-09-16 09:58 | NUR ---
PT RETURNED FROM CT SCAN. NOW C/O 03/24 ABDOMINAL PAIN. ERMD AWARE. AWAITING NEW ORDERS.
[2018-09-16] MEDS ORDERED: HYDROMORPHONE 1 MG/1 ML DISP.SYRIN ONE (10:10)
[2018-09-16] MEDS ORDERED: HYDROMORPHONE INJ 0.5 MG/0.5 ML SYRINGE IV ONE (10:30)
[2018-09-16 10:46] LABS: EOSINOPHILS % (MANUAL) 13 % (0-4); LYMPHOCYTES % (MANUAL) 10 % (16-48); MONOCYTES % (MANUAL) 10 % (0-11.0); NEUTROPHILS % (MANUAL) 67 (42-76)
--- NOTE | 2018-09-16 10:54 | NUR ---
IV SITE DC ON R HAND 20G
--- NOTE | 2018-09-16 10:55 | NUR ---
Patient discharged to home in stable condition. Written and verbal after care instructions given. Patient verbalizes understanding of instruction.
[2018-09-16 10:58] VITALS: BP 149/95
== END 2018-09-16 10:55 | disposition home or self-care (01) ==
LOC: ER 09:03
DX: I16.0 Hypertensive urgency (principal); I12.0 Hypertensive chronic kidney disease with stage 5 chronic kidney disease or end stage renal disease; N18.6 End stage renal disease; R10.13 Epigastric pain; F11.20 Opioid dependence, uncomplicated; F32.9 Major depressive disorder, single episode, unspecified; G51.0 Bell's palsy; G40.909 Epilepsy, unspecified, not intractable, without status epilepticus; Z88.1 Allergy status to other antibiotic agents; Z59.0 Homelessness; Z79.82 Long term (current) use of aspirin; Z79.899 Other long term (current) drug therapy; Z99.2 Dependence on renal dialysis; Z86.718 Personal history of other venous thrombosis and embolism
CPT/HCPCS: 36415; 74176; 80048; 80076; 83690; 84484; 85025; 85730; 96374; 99284; J1170

== ENCOUNTER 2018-09-18 07:21 | Inpatient (IN) | payer MEDICAID ==
[~2018-09-18] VITALS: Ht 165.1 cm; Wt 92.5 kg
--- NOTE | 2018-09-18 07:27 | NUR ---
BIB SELF FOR SEVERE L FLANK PAIN, SOB, BILAT BREAST PAIN SINCE YESTERDAY. MISSED DIALYSIS YESTERDAY. TO ER BED 11, HOOKED TO MONITOR, CHANGED TO GOWN, PROVIDED W WARM BLANKET, DR ESTRADA AT BEDSIDE. AWAITING FOR MD ORDERS.
[2018-09-18] MEDS ORDERED: oxyCODONE/APAP (5/325 MG) 1 UDTAB TABLET ONE (07:52)
[2018-09-18] MEDS ORDERED: oxyCODONE/APAP (5/325 MG) 1 UDTAB TABLET PO ONE (08:00)
[2018-09-18 08:09] LABS: BASOPHILS % (AUTO) 0.7 % (0.0-2.0); EOSINOPHILS % (AUTO) 11.6 % (0.0-6.0); HEMATOCRIT 26 % (33-45); HEMOGLOBIN 8.6 g/dL (11.5-14.8); LYMPHOCYTES # (AUTO) 0.6 /CMM (0.8-4.8); LYMPHOCYTES % (AUTO) 14.3 % (20.0-44.0); MEAN CORPUSCULAR HGB CONC 33 g/dl (31.0-36.0); MEAN CORPUSCULAR VOLUME 102 fL (82-100); MONOCYTES # (AUTO) 0.5 /CMM (0.1-1.30); NEUTROPHILS # (AUTO) 2.9 /CMM (1.8-8.9); NEUTROPHILS % (AUTO) 63.4 % (43.0-81.0); PLATELET COUNT (AUTO) 126 /CMM (150-450); RED BLOOD CELL COUNT(AUTO) 2.59 MIL/uL (4.0-5.2); WHITE BLOOD COUNT (AUTO) 4.5 K/uL (4.3-11.0)
--- NOTE | 2018-09-18 08:17 | NUR ---
BP OF 224/136, MADE AWARE
[2018-09-18 08:27] LABS: BILIRUBIN,DIRECT 0.1 mg/dL (0.0-0.2); BILIRUBIN,TOTAL 0.1 mg/dL (0.2-1.0); POTASSIUM 4.4 mmol/L (3.5-5.1); TOTAL PROTEIN, SERUM 6.4 g/dL (6.4-8.2)
[2018-09-18 08:30] LABS: CREATININE 12.4 mg/dL (0.6-1.3)
[2018-09-18] MEDS ORDERED: hydrALAZINE HCL IV 20 MG VIAL IV ONE (08:30)
[2018-09-18] MEDS ORDERED: hydrALAZINE HCL IV 20 MG VIAL ONE (08:37)
--- NOTE | 2018-09-18 08:50 | NUR ---
PT MOANING AND CRYING OF PAIN, PAIN AT R BREAST AREA. MD AWARE.
[2018-09-18] MEDS ORDERED: HYDROMORPHONE MDV 1 MG in IV NS 0.9% 50 ML IV PRN (09:00)
--- NOTE | 2018-09-18 10:52 | NUR ---
PT IN BED COMFORTABLE. STATES "FEELS BETTER NOW". HOOKED TO MONITOR, KEPT WARM AND COMFORTABLE.
--- NOTE | 2018-09-18 11:20 | NUR ---
TELE BED GIVEN 112-2
--- NOTE | 2018-09-18 11:23 | NUR ---
JESSICA WAS CALLED. FACE WORKER WAS PAGED.
--- NOTE | 2018-09-18 11:55 | NUR ---
REPORT GIVEN TO [address] OF TELE UNIT
[2018-09-18 12:00] VITALS: BP 188/109
[2018-09-18] MEDS ORDERED: Z GUARD REMEDY 2 OZ OINT TP PRN (12:00)
[2018-09-18] MEDS ORDERED: ONDANSETRON HCL/PF 4 MG/2 ML VIAL IVP PRN (12:00)
[2018-09-18] MEDS ORDERED: MAG HYDROX/AL HYDROX/SIMETH 30 ML UDC PO PRN (12:00)
[2018-09-18] MEDS ORDERED: MAGNESIUM HYDROXIDE 30 ML UDC PO PRN (12:00)
[2018-09-18] MEDS ORDERED: ACETAMINOPHEN 325 MG TABLET PO PRN (12:00)
--- NOTE | 2018-09-18 12:00 | NUR ---
ROVING CAN TENDER NOTE RECEIVED REPORT FROM [facility] HEBREW TEACHER. PATIENT CAME IN AT 1200 VIA GURNEY BUT AMBULATED TO HER BED IN ROOM 112-2. ALERT AND ORIENTED X4. C/C ACUTE PAIN ON LEFT FLANK, BREASTS, AND MISSED HER DIALYSIS YESTERDAY. HAD AN ISSUE WITH HER BLOOD PRESSURE SPIKING HIGH IN THE ER (200/100's). BP WAS 188/109 WHEN RECHECKED. EILEEN MCLAIN ORDERED HYDRALAZINE PRN. HAS A RIGHT FA #20, SALINE LOCKED. ORDERED LUNCH, RENAL DIET. PATIENT IS HOMELESS. COMPLAINS OF PAIN 9/10 ON HER BREAST AREA. TOOK PICTURES OF HER BREASTS AND BACK FOR DOCUMENTATION, POSTED IN HER CHART. BED ON LOWEST POSITION. CALL LIGHT WITHIN REACH. WILL CONTINUE TO MONITOR PATIENT CLOSELY.
[2018-09-18] MEDS: CALCIUM ACETATE 667 MG TABLET PO SCH ×2 (13:26→17:01)
[2018-09-18] MEDS: GABAPENTIN 100 MG CAPSULE PO SCH ×2 (13:26→16:12)
[2018-09-18] MEDS ORDERED: hydrALAZINE HCL IV 20 MG VIAL IV PRN (13:30)
--- NOTE | 2018-09-18 14:50 | NUR ---
RN NOTE PATIENT ASKED FOR PAIN MEDICATION, PAIN LEVEL 9/10. CALLED EILEEN BRIDGE CONTRACTOR, STATES THAT THE PATIENT ALREADY HAD DILAUDID IN THE ER. GAVE PATIENT TYLENOL INSTEAD. PATIENT ALSO ASKED FOR ANTI NAUSEA MEDICATION. GIVEN BEFORE SHE EATS LUNCH. WILL CONT TO MONITOR
[2018-09-18 16:00] VITALS: BP_SYST 181; BP_DIAS 104; BP_DIAS 109
--- NOTE | 2018-09-18 16:23 | NUR ---
RN NOTE BP 181/104, ADMINISTERED SCHEDULED BP MEDS. DIALYSIS NURSE CALLED, PATIENT WILL HAVE DIALYSIS TODAY AROUND 1700
[2018-09-18] MEDS ORDERED: TOPIRAMATE 100 MG TABLET PO SCH (17:00)
[2018-09-18] MEDS ORDERED: hydrALAZINE HCL 50 MG TABLET PO SCH (17:00)
[2018-09-18] MEDS ORDERED: APIXABAN 2.5 MG TABLET PO SCH (17:00)
[2018-09-18] MEDS ORDERED: CARVEDILOL 12.5 MG TABLET PO SCH (17:00)
--- NOTE | 2018-09-18 18:43 | NUR ---
RN NOTE TALKED TO ANGEL OVER THE PHONE, HE STATES THAT HE IS PATIENT'S FAMILY MEMBER. HE WANTS TO SPEAK WITH CEMENT PATCHER AND WANTED TO TRANSFER THE PATIENT TO [facility] [place]. CEMENT PATCHER MADE AWARE AND GAVE ANGEL'S PHONE NUMBER. TALKED TO CEMENT PATCHER, EXPLAINED TO THE PATIENT THAT THE TRANSFER WILL ONLY BE POSSIBLE IF HER INSURANCE WILL PROVIDE THE TRANSFER. MAYBE, TOMORROW. PATIENT STATES SHE WANTS TO LEAVE AMA AT 2030. WILL ENDORSE TO NOC SHIFT
--- NOTE | 2018-09-18 18:46 | NUR ---
RN CLOSING NOTE PATIENT ON BED AWAKE AND ALERT. DIALYSIS NURSE LEFT AND SAID WILL COME BACK AT 1999. ON TELE MONITOR SR. AMBULATORY. HAS A RIGHT FA #20. ON ROOM AIR. STABLE CONDITION. BED ON LOWEST POSITION. CALL LIGHT WITHIN REACH. WILL ENDORSE TO NOC SHIFT RN FOR CONT OF CARE
[2018-09-18 20:00] VITALS: BP 164/85
[2018-09-18] MEDS ORDERED: LEVOFLOXACIN (250MG) 250 MG TABLET PO SCH (20:00)
--- NOTE | 2018-09-18 20:13 | NUR ---
CIRCUITS ENGINEER OPENING NOTES RECEIVED REPORT FROM KEVIN STRE[address]. PATIENT A/A/O X3, ABLE TO MAKE NEEDS KNOWN. BREATHING EVEN & UNLABORED, TOLERATING ROOM AIR. DENIES ANY SOB OR DIFFICULTY BREATHING. ON TELE W/ SINUS RHYTHM, HR 79. RIGHT FOREARM IV #20 INTACT & PATENT W/ DRESSING CDI, SALINE LOCKED. LEFT UPPER ARM FISTULA NOTED W/ NO SIGNS OF SWELLING NOTED. C/O GENERALIZED PAIN LEVEL 8/10. HOWEVER, STILL WAITING ON MD TO PUT PAIN MED ORDERS. WILL OFFER TYLENOL IN THE MEANTIME. SAFETY MEASURES IN PLACE W/ SIDE RAILS UP & BED ALARM ON. INSTRUCTED TO USE CALL LIGHT FOR ASSISTANCE. WILL CONTINUE TO MONITOR.
--- NOTE | 2018-09-18 20:45 | NUR ---
FIBRE OPTIC CABLE SPLICER NOTES HD IN PROGRESS.
[2018-09-18] MEDS ORDERED: LINEZOLID 600 MG TABLET PO SCH (21:00)
[2018-09-18] MEDS ORDERED: HYDROCODONE/APAP 5/325MG 1 EACH TABLET PO PRN (22:00)
--- NOTE | 2018-09-18 23:00 | NUR ---
SLAT BASKET TOP MAKER NOTES PATIENT CONTINUES TO C/O PAIN. CALLED DR KEARNS & RECEIVED NEW ORDER FOR NORCO 5-325MG Q6H PRN. PATIENT INFORMED AND SHE CONTINUES TO BE DISSATISFIED & WANTS TO LEAVE AMA. INFORMED OF THE RISKS. PER PATIENT, SHE WILL THINK ABOUT IT. NORCO PRN ADMINISTERED.
[2018-09-19] VITALS: BP 146/87
--- NOTE | 2018-09-19 00:15 | NUR ---
ETL SOFTWARE ENGINEER NOTES HD ENDED W/ OUTPUT = [id number].
--- NOTE | 2018-09-19 01:20 | NUR ---
FINAL CLEANER NOTES PATIENT LEFT AMA. INFORMED PATIENT OF RISKS & PAPERWORK SIGNED. IV SITE REMOVED. DR KEARNS NOTIFIED.
[2018-09-19] MEDS ORDERED: PANTOPRAZOLE 40 MG TABLET.DR PO SCH (07:30)
[2018-09-19] MEDS ORDERED: LOSARTAN POTASSIUM 25 MG TABLET PO SCH (09:00)
[2018-09-19] MEDS ORDERED: ASPIRIN EC 81 MG TABLET.DR PO SCH (09:00)
[2018-09-19] MEDS ORDERED: CITALOPRAM HYDROBROMIDE 20 MG TABLET PO SCH (09:00)
== END 2018-09-19 01:20 | disposition left against medical advice (07) | DRG 385 ==
LOC: ER 07:23 → TELE1 11:38
PROVIDERS: ADMIT Registered Nurse; ATTEND Registered Nurse
PROC: 5A1D70Z Performance of Urinary Filtration, Intermittent, Less than 6 Hours Per Day (ICD-10-PCS; principal; 2018-09-18)
DX: N61.0 Mastitis without abscess (principal); I12.0 Hypertensive chronic kidney disease with stage 5 chronic kidney disease or end stage renal disease; R18.8 Other ascites; E66.01 Morbid (severe) obesity due to excess calories; N18.6 End stage renal disease; N25.81 Secondary hyperparathyroidism of renal origin; D63.1 Anemia in chronic kidney disease; F32.9 Major depressive disorder, single episode, unspecified; Z59.0 Homelessness; Z91.15 Patient's noncompliance with renal dialysis; Z86.718 Personal history of other venous thrombosis and embolism; Z99.2 Dependence on renal dialysis; Z76.5 Malingerer [conscious simulation]; R74.0 Nonspecific elevation of levels of transaminase and lactic acid dehydrogenase [LDH]; G89.4 Chronic pain syndrome; G40.909 Epilepsy, unspecified, not intractable, without status epilepticus; J45.909 Unspecified asthma, uncomplicated; Z68.33 Body mass index [BMI] 33.0-33.9, adult; F19.10 Other psychoactive substance abuse, uncomplicated; Z79.82 Long term (current) use of aspirin; Z91.19 Patient's noncompliance with other medical treatment and regimen
CPT/HCPCS: 36415; 71045-TC; 80048-TC; 80076-TC; 83690-TC; 84702-TC; 85025-TC; 87081-TC; 90935-TC; A4216; G0378; J0360; J1170; J2405

== ENCOUNTER 2018-09-29 00:56 | Emergency (ER) | payer MEDICAID ==
[~2018-09-29] VITALS: Ht 152.4 cm; Wt 92.5 kg
[~2018-09-29 00:56] MED LIST changes: +AMIT25TA9 PO; +APIX5TAB PO; +CARV25TA2 PO; +HYDR-4076 PO; +HYDR-4354 PO; +NIFE60TA73 PO; +SERT50TA PO; +SEVE800T8 PO; +TOPI200T16 PO
--- NOTE | 2018-09-29 02:00 | NUR ---
BIBRA 32 Y/O FEMALE SATURATION 98%. COMPLAINIG OF LEFT JAW PAIN AND RIGHT BREAST PAIN. HD PATIENT. AFEBRILE. NO SOB, RESPIRATORY DISTRESS. - N/V/D. AWARE.
[2018-09-29] MEDS ORDERED: HYDROCODONE/APAP 5/325MG 1 EACH TABLET ONE ×2 (02:18→05:56)
[2018-09-29] MEDS ORDERED: HYDROCODONE/APAP 5/325MG 1 EACH TABLET PO ONE ×2 (02:30→06:00)
[2018-09-29] MEDS ORDERED: predniSONE 20 MG TABLET PO ONE (03:30)
[2018-09-29] MEDS ORDERED: TDAP [DIPH/PERTUSSIS/TET] 0.5 ML VIAL IM ONE ×2 (03:30→03:45)
[2018-09-29] MEDS ORDERED: ACYCLOVIR 200 MG CAPSULE PO ONE (03:30)
[2018-09-29] MEDS ORDERED: predniSONE 20 MG TABLET ONE (03:44)
[2018-09-29] MEDS ORDERED: ACYCLOVIR 200 MG CAPSULE ONE (03:45)
--- NOTE | 2018-09-29 04:24 | NUR ---
WAIVER SIGNED FOR PERFORMING CT/MRI/XRY. PER PATIENT SHE IS NOT AT THIS TIME. UNABLE OT COLLOECT URINE.
--- NOTE | 2018-09-29 04:29 | NUR ---
PICKED UP FOR CT HEAD WITHOUT.
[2018-09-29 07:17] VITALS: BP 158/88
--- NOTE | 2018-09-29 07:21 | NUR ---
Patient discharged to home in stable condition. Written and verbal after care instructions given. Patient verbalizes understanding of instruction. ALL PRESCRIPTION GIVEN AND EXPLAINED INSTRUCTION. PT LEFT IN STABLE CONDITION. VSS. AFEBRILE.
== END 2018-09-29 07:20 | disposition home or self-care (01) ==
LOC: ER 00:58
DX: R68.84 Jaw pain (principal); G51.0 Bell's palsy; N64.4 Mastodynia; I12.0 Hypertensive chronic kidney disease with stage 5 chronic kidney disease or end stage renal disease; N18.6 End stage renal disease; F32.9 Major depressive disorder, single episode, unspecified; Z99.2 Dependence on renal dialysis; Z88.1 Allergy status to other antibiotic agents; Z59.0 Homelessness; Z79.82 Long term (current) use of aspirin; Z79.899 Other long term (current) drug therapy
CPT/HCPCS: 70450; 71046; 90471; 90715; 99284; J7512

== ENCOUNTER 2018-10-06 02:28 | Inpatient (IN) | payer MEDICAID ==
[~2018-10-06] VITALS: Ht 165.1 cm; Wt 98.0 kg
[2018-10-06] MEDS ORDERED: MEROPENEM 1 G VIAL IV ONE (03:12)
[2018-10-06] MEDS ORDERED: diphenhydrAMINE HCL 50 MG CAPSULE ONE (03:12)
[2018-10-06] MEDS ORDERED: diphenhydrAMINE HCL 25 MG CAPSULE PO ONE (03:30)
[2018-10-06] MEDS ORDERED: HYDROCODONE/APAP 10/325MG 1 EA TABLET PO ONE (03:30)
[2018-10-06] MEDS ORDERED: MEROPENEM 1 G in IV NS 0.9% 100 ML IV ONE (03:30)
[2018-10-06] MEDS ORDERED: HYDROCODONE/APAP 10/325MG 1 EA TABLET ONE (03:54)
[2018-10-06 03:56] LABS: BASOPHILS % (AUTO) 0.7 % (0.0-2.0); EOSINOPHILS % (AUTO) 5.2 % (0.0-6.0); HEMATOCRIT 25 % (33-45); HEMOGLOBIN 8.5 g/dL (11.5-14.8); LYMPHOCYTES # (AUTO) 0.7 /CMM (0.8-4.8); LYMPHOCYTES % (AUTO) 11.2 % (20.0-44.0); MEAN CORPUSCULAR HGB CONC 34 g/dl (31.0-36.0); MEAN CORPUSCULAR VOLUME 100 fL (82-100); MONOCYTES # (AUTO) 0.6 /CMM (0.1-1.30); NEUTROPHILS # (AUTO) 4.2 /CMM (1.8-8.9); NEUTROPHILS % (AUTO) 71.9 % (43.0-81.0); PLATELET COUNT (AUTO) 144 /CMM (150-450); RED BLOOD CELL COUNT(AUTO) 2.51 MIL/uL (4.0-5.2); WHITE BLOOD COUNT (AUTO) 5.8 K/uL (4.3-11.0)
[2018-10-06 04:10] LABS: BILIRUBIN,DIRECT 0.1 mg/dL (0.0-0.2); BILIRUBIN,TOTAL 0.3 mg/dL (0.2-1.0); POTASSIUM 4.6 mmol/L (3.5-5.1); TOTAL PROTEIN, SERUM 5.9 g/dL (6.4-8.2)
[2018-10-06 04:12] LABS: CALCIUM, SERUM 5.7 mg/dL (8.5-10.1)
[2018-10-06 04:45] VITALS: BP 214/129
[2018-10-06] MEDS ORDERED: MEROPENEM 500 MG in IV NS 0.9% 50 ML IV SCH (05:00)
[2018-10-06] MEDS ORDERED: ONDANSETRON HCL/PF 4 MG/2 ML VIAL IVP PRN (05:00)
[2018-10-06] MEDS ORDERED: Z GUARD REMEDY 2 OZ OINT TP PRN (05:00)
[2018-10-06] MEDS ORDERED: ACETAMINOPHEN 325 MG TABLET PO PRN (05:00)
[2018-10-06] MEDS: HYDROCODONE/APAP 10/325MG 1 EA TABLET PO PRN ×2 (05:22→23:29)
[2018-10-06] MEDS ORDERED: hydrALAZINE HCL 50 MG TABLET PO PRN (05:30)
[2018-10-06] MEDS ORDERED: hydrALAZINE HCL 50 MG TABLET PO ONE (05:30)
[2018-10-06 06:25] VITALS: BP 214/129
[2018-10-06 08:00] VITALS: BP_SYST 164; BP_DIAS 94; BP_DIAS 96
[2018-10-06] MEDS: CALCIUM ACETATE 667 MG TABLET PO SCH ×3 (08:32→18:55)
[2018-10-06] MEDS: hydrALAZINE HCL 50 MG TABLET PO SCH ×2 (09:42→19:05)
[2018-10-06] MEDS: CITALOPRAM HYDROBROMIDE 20 MG TABLET PO SCH (09:42)
[2018-10-06] MEDS: GABAPENTIN 100 MG CAPSULE PO SCH ×3 (09:42→18:55)
[2018-10-06] MEDS: ASPIRIN EC 81 MG TABLET.DR PO SCH (09:42)
[2018-10-06] MEDS: CARVEDILOL 12.5 MG TABLET PO SCH ×2 (09:43→20:25)
[2018-10-06] MEDS: TOPIRAMATE 100 MG TABLET PO SCH ×2 (09:46→20:25)
[2018-10-06] MEDS: LOSARTAN POTASSIUM 25 MG TABLET PO SCH (09:46)
[2018-10-06] MEDS: APIXABAN 2.5 MG TABLET PO SCH ×2 (09:47→19:07)
[2018-10-06] MEDS: CIPROFLOXACIN HCL 0.3% 5 ML BOTTLE RIGHTEYE SCH ×7 (12:29→23:25)
[2018-10-06] MEDS ORDERED: CEFAZOLIN 1 GM in IV D5W 50 ML IV SCH ×2 (13:30→14:00)
[2018-10-06] MEDS ORDERED: CEFAZOLIN 1 GM in IV NS 0.9% 50 ML IV SCH (14:00)
[2018-10-06 16:00] VITALS: BP 156/84
[2018-10-06 20:00] VITALS: BP 164/77
[2018-10-07] MEDS: clonazePAM 1 MG TABLET PO PRN ×2 (02:12→23:23)
[2018-10-07] MEDS: MEROPENEM 500 MG in IV NS 0.9% 50 ML IV SCH (04:43)
[2018-10-07] MEDS: HYDROCODONE/APAP 10/325MG 1 EA TABLET PO PRN ×2 (06:20→13:59)
[2018-10-07 06:54] LABS: ALBUMIN 2.8 g/dL (3.4-5.0); BILIRUBIN,TOTAL 0.3 mg/dL (0.2-1.0); CALCIUM, SERUM 7.3 mg/dL (8.5-10.1); MAGNESIUM 1.8 mg/dL (1.8-2.4); PHOSPHORUS 6.7 mg/dL (2.5-4.9); POTASSIUM 4.7 mmol/L (3.5-5.1); TOTAL PROTEIN, SERUM 5.8 g/dL (6.4-8.2)
[2018-10-07 06:59] LABS: CREATININE 9.7 mg/dL (0.6-1.3)
[2018-10-07 07:06] LABS: BASOPHILS % (AUTO) 0.7 % (0.0-2.0); EOSINOPHILS % (AUTO) 8.9 % (0.0-6.0); HEMATOCRIT 27 % (33-45); LYMPHOCYTES # (AUTO) 0.6 /CMM (0.8-4.8); LYMPHOCYTES % (AUTO) 11.9 % (20.0-44.0); MEAN CORPUSCULAR HGB CONC 34 g/dl (31.0-36.0); MEAN CORPUSCULAR VOLUME 101 fL (82-100); MONOCYTES # (AUTO) 0.6 /CMM (0.1-1.30); MONOCYTES % (AUTO) 13.6 % (2.0-12.0); NEUTROPHILS % (AUTO) 64.9 % (43.0-81.0); PLATELET COUNT (AUTO) 160 /CMM (150-450); RED BLOOD CELL COUNT(AUTO) 2.68 MIL/uL (4.0-5.2); WHITE BLOOD COUNT (AUTO) 4.7 K/uL (4.3-11.0)
[2018-10-07 08:00] VITALS: BP 150/83
[2018-10-07] MEDS: CIPROFLOXACIN HCL 0.3% 5 ML BOTTLE RIGHTEYE SCH ×4 (08:38→21:11)
[2018-10-07] MEDS: CITALOPRAM HYDROBROMIDE 20 MG TABLET PO SCH (08:38)
[2018-10-07] MEDS: CALCIUM ACETATE 667 MG TABLET PO SCH ×3 (08:38→17:10)
[2018-10-07] MEDS: GABAPENTIN 100 MG CAPSULE PO SCH ×3 (08:38→17:10)
[2018-10-07] MEDS: ASPIRIN EC 81 MG TABLET.DR PO SCH (08:38)
[2018-10-07] MEDS: CARVEDILOL 12.5 MG TABLET PO SCH ×2 (08:39→23:17)
[2018-10-07] MEDS: LOSARTAN POTASSIUM 25 MG TABLET PO SCH (08:40)
[2018-10-07] MEDS: TOPIRAMATE 100 MG TABLET PO SCH ×2 (08:40→23:17)
[2018-10-07] MEDS: hydrALAZINE HCL 50 MG TABLET PO SCH ×2 (08:40→17:11)
[2018-10-07] MEDS: APIXABAN 2.5 MG TABLET PO SCH ×2 (08:47→17:16)
[2018-10-07 15:56] VITALS: BP 153/90
[2018-10-07] MEDS: LACTOBACILLUS RHAMNOSUS GG 1 EACH CAP.SPRINK PO SCH (17:10)
[2018-10-07 20:00] VITALS: BP 154/87
[2018-10-07] MEDS: diphenhydrAMINE HCL 50 MG/ML VIAL IV PRN (20:48)
[2018-10-07 23:18] VITALS: BP 162/90
[2018-10-08] MEDS: MEROPENEM 500 MG in IV NS 0.9% 50 ML IV SCH (04:01)
[2018-10-08] MEDS: diphenhydrAMINE HCL 50 MG/ML VIAL IV PRN (06:51)
[2018-10-08 06:55] LABS: BASOPHILS % (AUTO) 0.9 % (0.0-2.0); EOSINOPHILS % (AUTO) 8.9 % (0.0-6.0); HEMATOCRIT 25 % (33-45); HEMOGLOBIN 8.3 g/dL (11.5-14.8); LYMPHOCYTES # (AUTO) 0.6 /CMM (0.8-4.8); MEAN CORPUSCULAR HGB CONC 33 g/dl (31.0-36.0); MEAN CORPUSCULAR VOLUME 101 fL (82-100); MONOCYTES # (AUTO) 0.5 /CMM (0.1-1.30); MONOCYTES % (AUTO) 15.6 % (2.0-12.0); NEUTROPHILS # (AUTO) 1.7 /CMM (1.8-8.9); NEUTROPHILS % (AUTO) 55.6 % (43.0-81.0); PLATELET COUNT (AUTO) 126 /CMM (150-450); WHITE BLOOD COUNT (AUTO) 3.1 K/uL (4.3-11.0)
[2018-10-08 07:19] LABS: CALCIUM, SERUM 6.6 mg/dL (8.5-10.1); MAGNESIUM 1.8 mg/dL (1.8-2.4); PHOSPHORUS 5.4 mg/dL (2.5-4.9); POTASSIUM 4.5 mmol/L (3.5-5.1)
[2018-10-08 07:22] LABS: CREATININE 7.5 mg/dL (0.6-1.3)
[2018-10-08 08:16] VITALS: BP 168/90
[2018-10-08] MEDS: LOSARTAN POTASSIUM 25 MG TABLET PO SCH (09:32)
[2018-10-08] MEDS: ASPIRIN EC 81 MG TABLET.DR PO SCH (09:32)
[2018-10-08] MEDS: LACTOBACILLUS RHAMNOSUS GG 1 EACH CAP.SPRINK PO SCH ×2 (09:32→17:11)
[2018-10-08] MEDS: TOPIRAMATE 100 MG TABLET PO SCH ×2 (09:32→20:43)
[2018-10-08] MEDS: CITALOPRAM HYDROBROMIDE 20 MG TABLET PO SCH (09:33)
[2018-10-08] MEDS: hydrALAZINE HCL 50 MG TABLET PO SCH ×2 (09:33→17:13)
[2018-10-08] MEDS: GABAPENTIN 100 MG CAPSULE PO SCH ×3 (09:33→17:11)
[2018-10-08] MEDS: CARVEDILOL 12.5 MG TABLET PO SCH ×2 (09:33→20:43)
[2018-10-08] MEDS: CIPROFLOXACIN HCL 0.3% 5 ML BOTTLE RIGHTEYE SCH ×4 (09:34→20:42)
[2018-10-08] MEDS: APIXABAN 2.5 MG TABLET PO SCH ×2 (09:34→17:14)
[2018-10-08] MEDS: CALCIUM ACETATE 667 MG TABLET PO SCH ×3 (09:36→17:10)
[2018-10-08 16:40] VITALS: BP 184/90
[2018-10-08 20:00] VITALS: BP 125/53
[2018-10-08] MEDS: clonazePAM 1 MG TABLET PO PRN (22:56)
[2018-10-09] MEDS: HYDROCODONE/APAP 10/325MG 1 EA TABLET PO PRN (03:01)
[2018-10-09] MEDS: MEROPENEM 500 MG in IV NS 0.9% 50 ML IV SCH (04:59)
[2018-10-09 08:00] VITALS: BP 148/77
[2018-10-09] MEDS: GABAPENTIN 100 MG CAPSULE PO SCH ×3 (09:07→17:40)
[2018-10-09] MEDS: TOPIRAMATE 100 MG TABLET PO SCH (09:07)
[2018-10-09] MEDS: LOSARTAN POTASSIUM 25 MG TABLET PO SCH (09:08)
[2018-10-09] MEDS: hydrALAZINE HCL 50 MG TABLET PO SCH ×2 (09:08→17:40)
[2018-10-09] MEDS: CALCIUM ACETATE 667 MG TABLET PO SCH ×3 (09:08→17:45)
[2018-10-09] MEDS: CITALOPRAM HYDROBROMIDE 20 MG TABLET PO SCH (09:08)
[2018-10-09] MEDS: LACTOBACILLUS RHAMNOSUS GG 1 EACH CAP.SPRINK PO SCH ×2 (09:08→17:40)
[2018-10-09] MEDS: ASPIRIN EC 81 MG TABLET.DR PO SCH (09:09)
[2018-10-09] MEDS: CARVEDILOL 12.5 MG TABLET PO SCH (09:09)
[2018-10-09] MEDS: CIPROFLOXACIN HCL 0.3% 5 ML BOTTLE RIGHTEYE SCH ×3 (09:13→16:00)
[2018-10-09] MEDS: APIXABAN 2.5 MG TABLET PO SCH ×2 (09:17→17:44)
[2018-10-09 12:22] LABS: BASOPHILS % (AUTO) 0.7 % (0.0-2.0); EOSINOPHILS % (AUTO) 7.7 % (0.0-6.0); HEMATOCRIT 28 % (33-45); HEMOGLOBIN 9.1 g/dL (11.5-14.8); LYMPHOCYTES # (AUTO) 0.7 /CMM (0.8-4.8); MEAN CORPUSCULAR HGB CONC 33 g/dl (31.0-36.0); MEAN CORPUSCULAR VOLUME 102 fL (82-100); MONOCYTES # (AUTO) 0.7 /CMM (0.1-1.30); MONOCYTES % (AUTO) 18.2 % (2.0-12.0); NEUTROPHILS % (AUTO) 55.4 % (43.0-81.0); PLATELET COUNT (AUTO) 120 /CMM (150-450); WHITE BLOOD COUNT (AUTO) 3.6 K/uL (4.3-11.0)
[2018-10-09 12:33] LABS: CALCIUM, SERUM 6.6 mg/dL (8.5-10.1); MAGNESIUM 1.8 mg/dL (1.8-2.4); PHOSPHORUS 5.8 mg/dL (2.5-4.9); POTASSIUM 4.3 mmol/L (3.5-5.1)
[2018-10-09 12:39] LABS: CREATININE 7.6 mg/dL (0.6-1.3)
[2018-10-09 13:46] LABS: EOSINOPHILS % (MANUAL) 5 % (0-4); LYMPHOCYTES % (MANUAL) 13 % (16-48); MONOCYTES % (MANUAL) 20 % (0-11.0); NEUTROPHILS % (MANUAL) 62 (42-76)
[2018-10-09 16:00] VITALS: BP 162/96
[2018-10-09 17:40] VITALS: BP 162/96
== END 2018-10-09 18:00 | disposition left against medical advice (07) | DRG 383 ==
LOC: ER 02:30 → TELE 04:00 → MED 09:49
PROVIDERS: ADMIT Hospitalist; ATTEND Hospitalist
PROC: 0JBL0ZZ Excision of Right Upper Leg Subcutaneous Tissue and Fascia, Open Approach (ICD-10-PCS; principal; 2018-10-06)
PROC: 5A1D70Z Performance of Urinary Filtration, Intermittent, Less than 6 Hours Per Day (ICD-10-PCS; principal; 2018-10-06)
PROC: 5A1D70Z Performance of Urinary Filtration, Intermittent, Less than 6 Hours Per Day (ICD-10-PCS; 2018-10-07)
PROC: 5A1D70Z Performance of Urinary Filtration, Intermittent, Less than 6 Hours Per Day (ICD-10-PCS; 2018-10-08)
DX: L03.115 Cellulitis of right lower limb (principal); I13.2 Hypertensive heart and chronic kidney disease with heart failure and with stage 5 chronic kidney disease, or end stage renal disease; D61.818 Other pancytopenia; E11.22 Type 2 diabetes mellitus with diabetic chronic kidney disease; N18.6 End stage renal disease; L03.314 Cellulitis of groin; E83.39 Other disorders of phosphorus metabolism; Z99.2 Dependence on renal dialysis; L03.213 Periorbital cellulitis; S71.101A Unspecified open wound, right thigh, initial encounter; X58.XXXA Exposure to other specified factors, initial encounter; Y93.9 Activity, unspecified; Y92.009 Unspecified place in unspecified non-institutional (private) residence as the place of occurrence of the external cause; E66.9 Obesity, unspecified; E78.5 Hyperlipidemia, unspecified; E83.51 Hypocalcemia; J45.909 Unspecified asthma, uncomplicated; K21.9 Gastro-esophageal reflux disease without esophagitis; L03.211 Cellulitis of face; Z91.19 Patient's noncompliance with other medical treatment and regimen; Z91.15 Patient's noncompliance with renal dialysis; Z86.73 Personal history of transient ischemic attack (TIA), and cerebral infarction without residual deficits; Z86.718 Personal history of other venous thrombosis and embolism; Z79.82 Long term (current) use of aspirin; Z79.01 Long term (current) use of anticoagulants; H10.9 Unspecified conjunctivitis; I50.32 Chronic diastolic (congestive) heart failure; G43.909 Migraine, unspecified, not intractable, without status migrainosus; Z68.35 Body mass index [BMI] 35.0-35.9, adult; H00.011 Hordeolum externum right upper eyelid; D63.8 Anemia in other chronic diseases classified elsewhere; F32.9 Major depressive disorder, single episode, unspecified; G40.909 Epilepsy, unspecified, not intractable, without status epilepticus; H01.001 Unspecified blepharitis right upper eyelid
CPT/HCPCS: 36415; 70486-TC; 71045-TC; 76641-TC; 80048-TC; 80053-TC; 80061-TC; 80076-TC; 83540-TC; 83605-TC; 83735-TC; 84100-TC; 84703-TC; 85025-TC; 85730-TC; 86704; 86705; 86706; 86803; 87040-TC; 87070-TC; 87081-TC; 87340; 90935-TC; A4216; G0378; J0690; J1200; J2185; J7060; Q0163

== ENCOUNTER 2018-12-04 01:23 | Inpatient (IN) | payer MEDICAID ==
[~2018-12-04] VITALS: Ht 165.1 cm; Wt 95.3 kg
--- NOTE | 2018-12-04 02:55 | NUR ---
PT BIBSELF C/O FACIAL SWELLING BILATERAL BREAST SWELLING X 5 DAYS. PT STATES HAVING DIALYSIS ON THURSDAY. PT AXO4. RESPIRATIONS EVEN AND UNLABORED. PT PUT ON THE IMMUNOCHEMIST AND PULSE OX.
--- NOTE | 2018-12-04 03:00 | NUR ---
PT HYPERTENSIVE ON THE MONITOR. ER AWARE.
[2018-12-04] MEDS ORDERED: hydrALAZINE HCL IV 20 MG VIAL IV ONE ×3 (03:30→06:00)
[2018-12-04] MEDS ORDERED: hydrALAZINE HCL IV 20 MG VIAL ONE ×2 (03:34→05:57)
[2018-12-04 03:44] LABS: BASOPHILS % (AUTO) 0.2 % (0.0-2.0); EOSINOPHILS % (AUTO) 12.2 % (0.0-6.0); HEMATOCRIT 27 % (33-45); HEMOGLOBIN 8.9 g/dL (11.5-14.8); LYMPHOCYTES # (AUTO) 0.5 /CMM (0.8-4.8); LYMPHOCYTES % (AUTO) 12.3 % (20.0-44.0); MEAN CORPUSCULAR HGB CONC 34 g/dl (31.0-36.0); MEAN CORPUSCULAR VOLUME 103 fL (82-100); MONOCYTES # (AUTO) 0.5 /CMM (0.1-1.30); MONOCYTES % (AUTO) 10.9 % (2.0-12.0); NEUTROPHILS # (AUTO) 2.8 /CMM (1.8-8.9); NEUTROPHILS % (AUTO) 64.4 % (43.0-81.0); PLATELET COUNT (AUTO) 145 /CMM (150-450); RED BLOOD CELL COUNT(AUTO) 2.58 MIL/uL (4.0-5.2); WHITE BLOOD COUNT (AUTO) 4.3 K/uL (4.3-11.0)
[2018-12-04 03:56] LABS: ALBUMIN 3.1 g/dL (3.4-5.0); BILIRUBIN,DIRECT 0.1 mg/dL (0.0-0.2); BILIRUBIN,TOTAL 0.4 mg/dL (0.2-1.0); CALCIUM, SERUM 6.9 mg/dL (8.5-10.1); POTASSIUM 4.8 mmol/L (3.5-5.1); TOTAL PROTEIN, SERUM 6.2 g/dL (6.4-8.2)
[2018-12-04 03:58] LABS: CREATININE 14.3 mg/dL (0.6-1.3)
--- NOTE | 2018-12-04 04:15 | NUR ---
PT RESTING IN BED, NAD NOTED. WILL CONTINUE TO MONITOR.
--- NOTE | 2018-12-04 04:30 | NUR ---
OIL WELL CABLE TOOL DRILLER AT BEDSIDE.
[2018-12-04] MEDS ORDERED: ENOXAPARIN SODIUM 30 MG/0.3 ML DISP.SYRIN SQ ONE (05:30)
--- NOTE | 2018-12-04 05:30 | NUR ---
PER , OKAY TO GIVE LOVENOX.
[2018-12-04] MEDS ORDERED: ENOXAPARIN SODIUM 60 MG/0.6 ML DISP.SYRIN SQ ONE (05:36)
[2018-12-04] MEDS ORDERED: ENOXAPARIN SODIUM 40 MG/0.4 ML DISP.SYRIN SQ ONE (05:36)
[2018-12-04] MEDS ORDERED: CLONIDINE HCL 0.1 MG TABLET ONE (05:37)
--- NOTE | 2018-12-04 05:56 | NUR ---
[facility] PAGED
[2018-12-04] MEDS ORDERED: CLONIDINE HCL 0.1 MG TABLET PO ONE (06:00)
--- NOTE | 2018-12-04 06:17 | NUR ---
[facility] PAGED
--- NOTE | 2018-12-04 06:35 | NUR ---
PT RESTING IN BED, NAD NOTED. WILL CONTINUE TO MONITOR.
--- NOTE | 2018-12-04 06:52 | NUR ---
NURS SUP PAGED FOR M/S BED.
[2018-12-04] MEDS ORDERED: QUET400T PO (07:13)
--- NOTE | 2018-12-04 07:25 | NUR ---
RECEIVED REPORT FROM YENIFER SCHULTZ FOR FRANSICO, PT ASLEEP ON BED EASILY AROUSABLE, WILLCONTINUE TO MONITOR.
[2018-12-04] MEDS ORDERED: ONDANSETRON HCL/PF 4 MG/2 ML VIAL IVP PRN (07:30)
[2018-12-04] MEDS ORDERED: MAGNESIUM HYDROXIDE 30 ML UDC PO PRN (07:30)
[2018-12-04] MEDS ORDERED: ZOLPIDEM TARTRATE 5 MG TABLET PO PRN (07:30)
--- NOTE | 2018-12-04 07:37 | NUR ---
REPORT GIVEN TO LJ STREET FOR FRANSICO.
[2018-12-04 08:00] VITALS: BP 177/106
--- NOTE | 2018-12-04 08:00 | NUR ---
RN NOTES RECEIVED PATIENT FROM ER WITH BREATHING NORMAL, EVEN AND UNLABORED. NO SOB NOTED. NO ACUTE DISTRESS NOTED. TELE MONITOR REVEALS SR, HR=80. IV R ARM IS PATENT AND INTACT, NO INFILTRATION NOTED. KEPT CLEAN, DRY AND COMFORTABLE. ALL NEEDS ATTENDED. SAFETY MEASURE OBSERVED. CALL LIGHT WITH IN REACH. WILL CONT TO MONITOR.
[2018-12-04] MEDS: APIXABAN 5 MG TABLET PO SCH ×2 (10:57→18:43)
[2018-12-04] MEDS ORDERED: HYDROMORPHONE INJ 0.5 MG/0.5 ML SYRINGE IV SCH ×2 (11:30→14:00)
[2018-12-04 12:00] VITALS: BP 170/82
--- NOTE | 2018-12-04 12:30 | NUR ---
RN NOTES VERIFIED ALLERGIC REACTION OF DILAUDID FROM PATIENT PER PHARMACY ORDER. PER PATIENT, PATIENT HAS NO ALLERGIC REACTION FROM DILAUDID PO OR IV AND OK TO TAKE MEDICATION. PER PATIENT, PATIENT TOOK DILAUDID IV AND PO IN PAST WITH NO ALLERGIC REACTION. DIALYSIS NURSE BILL AT BEDSIDE. WILL CONT TO MONITOR.
--- NOTE | 2018-12-04 13:25 | NUR ---
RN NOTES PER PATIENT, PATIENT IS NOT ALLERGIC TO SEAFOOD, ONLY ALLERGIC TO SHELLFISH. NOTIFIED DR COLMENARES AND RECEIVED ORDER TO REMOVE SEAFOOD FROM ALLERGY LIST. ORDER NOTED AND CARRIED OUT. WILL CONT TO MONITOR.
[2018-12-04] MEDS ORDERED: hydrALAZINE HCL IV 20 MG VIAL IV PRN (14:00)
[2018-12-04] MEDS ORDERED: HYDROMORPHONE 1 MG/1 ML DISP.SYRIN IV SCH (14:30)
[2018-12-04] MEDS ORDERED: HYDROMORPHONE 1 MG/1 ML DISP.SYRIN IV PRN (14:30)
[2018-12-04 16:00] VITALS: BP 169/80
[2018-12-04] MEDS ORDERED: GABAPENTIN 100 MG CAPSULE PO SCH (17:00)
[2018-12-04] MEDS ORDERED: LOSARTAN POTASSIUM 25 MG TABLET PO SCH (17:00)
[2018-12-04] MEDS ORDERED: hydrALAZINE HCL 50 MG TABLET PO SCH (17:00)
[2018-12-04] MEDS ORDERED: TOPIRAMATE 100 MG TABLET PO SCH (17:30)
[2018-12-04] MEDS ORDERED: CALCIUM ACETATE 667 MG TABLET PO SCH (18:00)
--- NOTE | 2018-12-04 19:00 | NUR ---
RN NOTES PATIENT ENDORSED TO NEXT SHIFT IN STABLE CONDITION FOR CONTINUITY OF CARE. WILL CONT TO MONITOR.
[2018-12-04 19:30] VITALS: BP 182/105
--- NOTE | 2018-12-04 19:35 | NUR ---
AMA PT RECEIVED A/OX3, ON ROOM AIR, BREATHING EVEN AND UNLABORED. UPON INTRODUCTION, PT STATES SHE IS LEAVING. ASKED PT WHY AND TO EXPLAIN WHATS GOING ON AND SHE SAID SHES FEELING ANXIOUS AND WANTS MEDICATION FOR IT. INFORMED HER THAT I CAN PAGED THE MD FOR AN ORDER AND TOLD HER IT IS NOT SAFE FOR HER TO LEAVE. PT STATED "ITS GOING TO TAKE TOO LONG, IM HAVING ANXIETY NOW!". NOTIFIED CHEMO TAYLOR AND ASKED FOR PRN ORDER FOR ANXIETY. PT GATHERED BELONGINGS AND WALKED DOWN HALLWAY SAYING SHE IS LEAVING. DESPITE MULTIPLE ATTEMPTS TO EDUCATE PT THAT IT IS NOT SAFE TO LEAVE GIVEN HER DIAGNOSIS, VITAL SIGNS, ETC. AND TRYING TO ACCOMMODATE PT'S NEEDS, PT STILL STRONGLY REFUSING. CHARGE NURSE ALSO ASKED PT TO STAY DUE TO IT NOT BEING SAFE WITH NO SUCCESS. IV REMOVED, BELONGINGS TAKEN WITH PT. DEYA PAPERWORK SIGNED. NURSING OPEN DEVELOPER OPERATOR MEENAKSHI AND CHEMO TAYLOR AWARE. TEMP 98.1, HR 83, BP 182/105, RR 18, SPO2 98% ON RA
[2018-12-04] MEDS ORDERED: CARVEDILOL 12.5 MG TABLET PO SCH (21:00)
[2018-12-04] MEDS ORDERED: QUETIAPINE FUMARATE 100 MG TABLET PO SCH (22:00)
[2018-12-05] MEDS ORDERED: NIFEdipine XL (30MG) 30 MG TAB PO SCH (09:00)
[2018-12-05] MEDS ORDERED: SEVELAMER CARBONATE 800 MG TABLET PO SCH (09:00)
[2018-12-05] MEDS ORDERED: ASPIRIN EC 81 MG TABLET.DR PO SCH (09:00)
[2018-12-05] MEDS ORDERED: CITALOPRAM HYDROBROMIDE 20 MG TABLET PO SCH (09:00)
== END 2018-12-04 20:58 | disposition left against medical advice (07) | DRG 194 ==
LOC: ER 01:27 → TELE1 07:26
PROVIDERS: ADMIT Student in an Organized Health Care Education/Training Program; ATTEND Student in an Organized Health Care Education/Training Program
PROC: 5A1D70Z Performance of Urinary Filtration, Intermittent, Less than 6 Hours Per Day (ICD-10-PCS; principal; 2018-12-04)
DX: I13.2 Hypertensive heart and chronic kidney disease with heart failure and with stage 5 chronic kidney disease, or end stage renal disease (principal); D69.6 Thrombocytopenia, unspecified; E83.39 Other disorders of phosphorus metabolism; E44.1 Mild protein-calorie malnutrition; E88.09 Other disorders of plasma-protein metabolism, not elsewhere classified; N18.6 End stage renal disease; I16.0 Hypertensive urgency; Z99.2 Dependence on renal dialysis; Z91.15 Patient's noncompliance with renal dialysis; D63.8 Anemia in other chronic diseases classified elsewhere; J45.909 Unspecified asthma, uncomplicated; K21.9 Gastro-esophageal reflux disease without esophagitis; Z86.718 Personal history of other venous thrombosis and embolism; Z86.73 Personal history of transient ischemic attack (TIA), and cerebral infarction without residual deficits; Z91.19 Patient's noncompliance with other medical treatment and regimen; G40.909 Epilepsy, unspecified, not intractable, without status epilepticus; Z68.34 Body mass index [BMI] 34.0-34.9, adult; Z79.01 Long term (current) use of anticoagulants; F32.9 Major depressive disorder, single episode, unspecified; Z59.0 Homelessness; I50.33 Acute on chronic diastolic (congestive) heart failure
CPT/HCPCS: 36415; 71045-TC; 80048-TC; 80076-TC; 83880; 84484-TC; 84702-TC; 85025-TC; 85730-TC; 86706; 87081-TC; 87340; 90935-TC; G0378; J0360; J1170; J1650

== ENCOUNTER 2018-12-18 01:23 | Emergency (ER) | payer MEDICAID ==
[~2018-12-18] VITALS: Ht 165.1 cm; Wt 95.7 kg
[~2018-12-18 01:23] MED LIST changes: -AMIT25TA9 PO; -APIX2.5T PO; -CARV25TA2 PO; -HYDR-4076 PO; -HYDR-4354 PO; +QUET400T PO; -SERT50TA PO; -TOPI200T16 PO
[2018-12-18 01:27] VITALS: BP 184/110
--- NOTE | 2018-12-18 01:59 | NUR ---
BIBSELF WALKED IN. AMBULATORY. AAOX4. BREATHING EVEN AND UNLABORED. CRYING. CO SEVERE ABDOMINAL PAIN BREAT PAIN AND BILAT LEG PAIN. UPON EVAL WITH . PT REFUSED TO TAKE ORAL PAIN MEDICATION. WHEN SHE WAS TOLD OUT THAT SHE IS NOT GETTING A SHOT SHE JUST REFUSED CARE. MD EXPALINED RISK AND BENEFIT OF HER HAVING BLOOD CLOTS BUT STILL WANT TO LEAVE. PT RESFUSED TO SIGNED THE AMA FORM. [address] WITNESSED.
--- NOTE | 2018-12-18 02:03 | NUR ---
Patient does not wish to proceed with medical care recommended by Dr. Dre Liu. Patient given information related to possible complications, up to and including , which could occur as a result of leaving the hospital at this time. Patient verbalizes understanding of risks involved due to leaving against medical advice.
== END 2018-12-18 02:04 | disposition left against medical advice (07) ==
LOC: ER 01:28
DX: G89.29 Other chronic pain (principal); I12.0 Hypertensive chronic kidney disease with stage 5 chronic kidney disease or end stage renal disease; N18.6 End stage renal disease; G51.0 Bell's palsy; Z86.718 Personal history of other venous thrombosis and embolism; F32.9 Major depressive disorder, single episode, unspecified; F41.9 Anxiety disorder, unspecified; G40.909 Epilepsy, unspecified, not intractable, without status epilepticus; Z76.5 Malingerer [conscious simulation]; Z98.890 Other specified postprocedural states; Z88.1 Allergy status to other antibiotic agents; Z88.5 Allergy status to narcotic agent; Z99.2 Dependence on renal dialysis; Z91.018 Allergy to other foods; Z79.82 Long term (current) use of aspirin; Z59.0 Homelessness

== ENCOUNTER 2019-02-06 17:13 | Inpatient (IN) | payer MEDICAID ==
[2019-02-06] MEDS ORDERED: FENTANYL PF 100MCG/2ML AMPUL IV ONE (18:00)
[2019-02-06] MEDS ORDERED: IV NS 0.9% 500 ML BAG IV ONE (18:00)
[2019-02-06] MEDS ORDERED: METOCLOPRAMIDE HCL 10 MG/2 ML VIAL IV ONE (18:00)
[2019-02-06] MEDS ORDERED: FAMOTIDINE/PF INJ 20 MG/2 ML VIAL IV ONE ×2 (18:00→18:26)
[2019-02-06] MEDS ORDERED: FENTANYL PF 100MCG/2ML AMPUL ONE (18:26)
[2019-02-06] MEDS ORDERED: METOCLOPRAMIDE HCL 10 MG/2 ML VIAL ONE (18:26)
[2019-02-06] MEDS ORDERED: HYDROMORPHONE 1 MG/1 ML DISP.SYRIN IV ONE (20:00)
[2019-02-06] MEDS ORDERED: hydrALAZINE HCL IV 20 MG VIAL IV ONE (20:00)
[2019-02-06] MEDS ORDERED: IOHEXOL-350 100 ML VIAL IV ONE (20:01)
[2019-02-06] MEDS ORDERED: CT SWABBABLE VALVE TRANS SET 1 EA INFUS.SET MC ONE (20:01)
[2019-02-06] MEDS ORDERED: IV NS 0.9% 250 ML IV ONE (20:01)
[2019-02-06] MEDS ORDERED: hydrALAZINE HCL IV 20 MG VIAL ONE (20:01)
[2019-02-06] MEDS ORDERED: HYDROMORPHONE 1 MG/1 ML DISP.SYRIN ONE (20:02)
[2019-02-06] MEDS ORDERED: LABETALOL HCL IV 100MG VIAL ONE (20:57)
[2019-02-06] MEDS ORDERED: LABETALOL 20 MG/4 ML VIAL IV ONE (21:00)
[2019-02-06] MEDS ORDERED: MAG HYDROX/AL HYDROX/SIMETH 30 ML UDC PO PRN (22:00)
[2019-02-06] MEDS ORDERED: Z GUARD REMEDY 2 OZ OINT TP PRN (22:00)
[2019-02-06] MEDS ORDERED: ZOLPIDEM TARTRATE 5 MG TABLET PO PRN (22:00)
[2019-02-06] MEDS ORDERED: METOCLOPRAMIDE HCL 10 MG/2 ML VIAL IV PRN (22:00)
[2019-02-06] MEDS ORDERED: MAGNESIUM HYDROXIDE 30 ML UDC PO PRN (22:00)
[2019-02-06] MEDS: HYDROMORPHONE INJ 2 MG/ML DISP.SYRIN IV PRN (22:58)
[2019-02-06] MEDS: hydrALAZINE HCL IV 20 MG VIAL IV PRN (22:58)
[2019-02-07] MEDS: HYDROMORPHONE INJ 2 MG/ML DISP.SYRIN IV PRN ×5 (03:15→19:28)
[2019-02-07] MEDS: ONDANSETRON HCL/PF 4 MG/2 ML VIAL IVP PRN ×2 (06:18→09:33)
[2019-02-07] MEDS: hydrALAZINE HCL IV 20 MG VIAL IV PRN ×2 (07:29→17:57)
[2019-02-07] MEDS: CALCIUM ACETATE 667 MG TABLET PO SCH ×3 (07:54→17:40)
[2019-02-07] MEDS: SEVELAMER CARBONATE 800 MG TABLET PO SCH ×3 (07:54→17:40)
[2019-02-07] MEDS ORDERED: CARVEDILOL 25 MG TABLET PO SCH (08:00)
[2019-02-07] MEDS: GABAPENTIN 100 MG CAPSULE PO SCH ×3 (08:46→17:40)
[2019-02-07] MEDS: CITALOPRAM HYDROBROMIDE 20 MG TABLET PO SCH (08:46)
[2019-02-07] MEDS: ASPIRIN EC 81 MG TABLET.DR PO SCH (08:46)
[2019-02-07] MEDS: TOPIRAMATE 100 MG TABLET PO SCH ×2 (08:46→17:40)
[2019-02-07] MEDS: hydrALAZINE HCL 50 MG TABLET PO SCH ×2 (08:47→17:40)
[2019-02-07] MEDS: CARVEDILOL 12.5 MG TABLET PO SCH ×2 (08:48→20:23)
[2019-02-07] MEDS: NIFEdipine XL 60 MG TAB PO SCH (11:13)
[2019-02-07] MEDS: APIXABAN 5 MG TABLET PO SCH ×2 (11:20→17:42)
[2019-02-07] MEDS ORDERED: CLONIDINE HCL 0.1 MG TABLET PO PRN (12:00)
[2019-02-07] MEDS: QUETIAPINE FUMARATE 100 MG TABLET PO SCH (21:31)
[2019-02-08] MEDS: ALBUTEROL FS 2.5 MG/3 ML VIAL.NEB NEB SCH ×4 (01:30→19:07)
[2019-02-08] MEDS: HYDROMORPHONE INJ 2 MG/ML DISP.SYRIN IV PRN ×3 (05:55→17:52)
[2019-02-08] MEDS: CALCIUM ACETATE 667 MG TABLET PO SCH ×3 (08:56→17:08)
[2019-02-08] MEDS: ASPIRIN EC 81 MG TABLET.DR PO SCH (08:57)
[2019-02-08] MEDS: TOPIRAMATE 100 MG TABLET PO SCH ×2 (08:57→17:08)
[2019-02-08] MEDS: NIFEdipine XL 60 MG TAB PO SCH (08:57)
[2019-02-08] MEDS: CITALOPRAM HYDROBROMIDE 20 MG TABLET PO SCH (08:57)
[2019-02-08] MEDS: SEVELAMER CARBONATE 800 MG TABLET PO SCH ×3 (08:57→17:07)
[2019-02-08] MEDS: hydrALAZINE HCL 50 MG TABLET PO SCH ×2 (08:58→17:08)
[2019-02-08] MEDS: GABAPENTIN 100 MG CAPSULE PO SCH ×3 (08:58→17:08)
[2019-02-08] MEDS: CARVEDILOL 12.5 MG TABLET PO SCH ×2 (08:58→21:06)
[2019-02-08] MEDS: APIXABAN 5 MG TABLET PO SCH ×2 (08:59→17:08)
[2019-02-08] MEDS: diphenhydrAMINE HCL ELIX 25 MG/10 ML UDC PO PRN (20:35)
[2019-02-08] MEDS: QUETIAPINE FUMARATE 100 MG TABLET PO SCH (21:06)
[2019-02-09] MEDS: ALBUTEROL FS 2.5 MG/3 ML VIAL.NEB NEB SCH ×4 (01:30→19:47)
[2019-02-09] MEDS: GABAPENTIN 100 MG CAPSULE PO SCH ×2 (08:44→12:47)
[2019-02-09] MEDS: TOPIRAMATE 100 MG TABLET PO SCH ×2 (08:44→16:54)
[2019-02-09] MEDS: SEVELAMER CARBONATE 800 MG TABLET PO SCH ×3 (08:44→17:14)
[2019-02-09] MEDS: CITALOPRAM HYDROBROMIDE 20 MG TABLET PO SCH (08:44)
[2019-02-09] MEDS: CALCIUM ACETATE 667 MG TABLET PO SCH ×3 (08:44→17:14)
[2019-02-09] MEDS: ASPIRIN EC 81 MG TABLET.DR PO SCH (08:44)
[2019-02-09] MEDS: NIFEdipine XL 60 MG TAB PO SCH (08:55)
[2019-02-09] MEDS: CARVEDILOL 12.5 MG TABLET PO SCH ×2 (08:55→21:35)
[2019-02-09] MEDS: hydrALAZINE HCL 50 MG TABLET PO SCH ×2 (08:56→16:54)
[2019-02-09] MEDS: APIXABAN 5 MG TABLET PO SCH ×2 (09:16→16:55)
[2019-02-09] MEDS: HYDROMORPHONE INJ 2 MG/ML DISP.SYRIN IV PRN (11:23)
[2019-02-09] MEDS: GABAPENTIN 300 MG CAPSULE PO SCH ×2 (14:22→16:54)
[2019-02-09] MEDS: oxyCODONE IR immediate release 5 MG PO PRN (18:16)
[2019-02-09] MEDS ORDERED: HYDROMORPHONE INJ 2 MG/ML DISP.SYRIN IV PRN (20:00)
[2019-02-09] MEDS: QUETIAPINE FUMARATE 100 MG TABLET PO SCH (21:34)
[2019-02-10] MEDS: ALBUTEROL FS 2.5 MG/3 ML VIAL.NEB NEB SCH ×2 (08:26→13:30)
[2019-02-10] MEDS: CARVEDILOL 12.5 MG TABLET PO SCH (09:00)
[2019-02-10] MEDS: hydrALAZINE HCL 50 MG TABLET PO SCH ×2 (09:00→17:36)
[2019-02-10] MEDS: NIFEdipine XL 60 MG TAB PO SCH (09:00)
[2019-02-10] MEDS: SEVELAMER CARBONATE 800 MG TABLET PO SCH ×3 (09:02→17:36)
[2019-02-10] MEDS: APIXABAN 5 MG TABLET PO SCH ×2 (09:02→17:35)
[2019-02-10] MEDS: CALCIUM ACETATE 667 MG TABLET PO SCH ×3 (09:02→17:36)
[2019-02-10] MEDS: TOPIRAMATE 100 MG TABLET PO SCH ×2 (09:03→17:36)
[2019-02-10] MEDS: CITALOPRAM HYDROBROMIDE 20 MG TABLET PO SCH (09:03)
[2019-02-10] MEDS: ASPIRIN EC 81 MG TABLET.DR PO SCH (09:03)
[2019-02-10] MEDS: GABAPENTIN 300 MG CAPSULE PO SCH ×3 (09:03→17:36)
[2019-02-10] MEDS: HYDROMORPHONE INJ 2 MG/ML DISP.SYRIN IV PRN ×3 (09:12→18:22)
[2019-02-10] MEDS: oxyCODONE IR immediate release 5 MG PO PRN (12:52)
[2019-02-10] MEDS: diphenhydrAMINE HCL ELIX 25 MG/10 ML UDC PO PRN (13:47)
[2019-02-10] MEDS ORDERED: diphenhydrAMINE HCL 50 MG/ML VIAL IV PRN (14:30)
== END 2019-02-10 19:15 | disposition home or self-care (01) | DRG 243 ==
DX: K21.9 Gastro-esophageal reflux disease without esophagitis (principal); I13.2 Hypertensive heart and chronic kidney disease with heart failure and with stage 5 chronic kidney disease, or end stage renal disease; D69.6 Thrombocytopenia, unspecified; N18.6 End stage renal disease; E88.09 Other disorders of plasma-protein metabolism, not elsewhere classified; E44.1 Mild protein-calorie malnutrition; R18.8 Other ascites; I16.0 Hypertensive urgency; I50.9 Heart failure, unspecified; Z86.73 Personal history of transient ischemic attack (TIA), and cerebral infarction without residual deficits; G89.4 Chronic pain syndrome; G40.909 Epilepsy, unspecified, not intractable, without status epilepticus; Z99.2 Dependence on renal dialysis; D53.9 Nutritional anemia, unspecified; D63.8 Anemia in other chronic diseases classified elsewhere; J45.909 Unspecified asthma, uncomplicated; J98.11 Atelectasis; Z91.19 Patient's noncompliance with other medical treatment and regimen; Z90.49 Acquired absence of other specified parts of digestive tract; G43.909 Migraine, unspecified, not intractable, without status migrainosus; E66.9 Obesity, unspecified; Z68.38 Body mass index [BMI] 38.0-38.9, adult; Z86.718 Personal history of other venous thrombosis and embolism; Z86.711 Personal history of pulmonary embolism; G47.30 Sleep apnea, unspecified; G51.0 Bell's palsy; Z79.01 Long term (current) use of anticoagulants

== ENCOUNTER 2019-03-03 12:46 | Emergency (ER) | payer MEDICAID ==
[~2019-03-03] VITALS: Ht 165.1 cm; Wt 99.3 kg
[2019-03-03 12:46] VITALS: BP 189/108
[2019-03-03] MEDS ORDERED: predniSONE 20 MG TABLET ONE (13:17)
[2019-03-03] MEDS ORDERED: GUAIFENESIN/CODEINE 10 ML UDC ONE (13:17)
[2019-03-03] MEDS ORDERED: ALBUTEROL FS 2.5 MG/3 ML VIAL.NEB ONE (13:24)
[2019-03-03] MEDS ORDERED: ALBUTEROL FS 2.5 MG/0.5 ML VIAL.NEB ONE (13:24)
[2019-03-03] MEDS ORDERED: IPRATROPIUM NEB FS 0.5 MG/2.5 ML AMPUL.NEB NEB ONE (13:30)
[2019-03-03] MEDS ORDERED: predniSONE 20 MG TABLET PO ONE (13:30)
[2019-03-03] MEDS ORDERED: ALBUTEROL FS 2.5 MG/3 ML VIAL.NEB NEB ONE (13:30)
[2019-03-03] MEDS ORDERED: GUAIFENESIN/CODEINE 10 ML UDC PO PRN (13:30)
== END 2019-03-03 14:52 | disposition home or self-care (01) ==
LOC: ER 12:48
DX: J18.9 Pneumonia, unspecified organism (principal); J98.01 Acute bronchospasm; R06.02 Shortness of breath; I12.0 Hypertensive chronic kidney disease with stage 5 chronic kidney disease or end stage renal disease; N18.6 End stage renal disease; H10.89 Other conjunctivitis; G51.0 Bell's palsy; G40.909 Epilepsy, unspecified, not intractable, without status epilepticus; F32.9 Major depressive disorder, single episode, unspecified; G89.4 Chronic pain syndrome; Z99.2 Dependence on renal dialysis; Z86.718 Personal history of other venous thrombosis and embolism; Z98.890 Other specified postprocedural states; Z59.0 Homelessness; Z88.1 Allergy status to other antibiotic agents; Z88.6 Allergy status to analgesic agent; Z88.5 Allergy status to narcotic agent; Z91.018 Allergy to other foods; Z79.82 Long term (current) use of aspirin
CPT/HCPCS: 71045; 94640 ×2; 99284; J7512

== ENCOUNTER 2019-04-18 22:04 | Inpatient (IN) | payer MEDICAID ==
[~2019-04-18] VITALS: Ht 165.1 cm; Wt 93.0 kg
--- NOTE | 2019-04-18 22:16 | NUR ---
BIBS. C/O "NONRADIATING MIDSTERNAL CP SINCE 1800. MISSED DIALYSIS TODAY, ALSO HAS FACIAL SWELLING" -SOB NOTED.
[2019-04-18] MEDS ORDERED: ASPIRIN 81 MG TAB.CHEW PO ONE (22:30)
[2019-04-18] MEDS ORDERED: ONDANSETRON 4 MG TAB.RAPDIS SL ONE (22:30)
[2019-04-18] MEDS ORDERED: HYDROMORPHONE HCL 2 MG TABLET PO PRN (22:30)
[2019-04-18] MEDS ORDERED: diphenhydrAMINE HCL 50 MG CAPSULE PO ONE (22:30)
[2019-04-18 22:36] LABS: BASOPHILS % (AUTO) 0.9 % (0.0-2.0); EOSINOPHILS % (AUTO) 10.4 % (0.0-6.0); HEMATOCRIT 28 % (33-45); LYMPHOCYTES # (AUTO) 0.7 /CMM (0.8-4.8); LYMPHOCYTES % (AUTO) 12.9 % (20.0-44.0); MEAN CORPUSCULAR HGB CONC 32 g/dl (31.0-36.0); MEAN CORPUSCULAR VOLUME 100 fL (82-100); MONOCYTES # (AUTO) 0.6 /CMM (0.1-1.30); MONOCYTES % (AUTO) 11.8 % (2.0-12.0); NEUTROPHILS # (AUTO) 3.3 /CMM (1.8-8.9); PLATELET COUNT (AUTO) 140 /CMM (150-450); RED BLOOD CELL COUNT(AUTO) 2.78 MIL/uL (4.0-5.2); WHITE BLOOD COUNT (AUTO) 5.1 K/uL (4.3-11.0)
[2019-04-18] MEDS ORDERED: IOHEXOL-350 100 ML VIAL IV ONE (22:37)
[2019-04-18] MEDS ORDERED: CT SWABBABLE VALVE TRANS SET 1 EA INFUS.SET MC ONE (22:37)
[2019-04-18] MEDS ORDERED: IV NS 0.9% 250 ML IV ONE (22:37)
[2019-04-18] MEDS ORDERED: diphenhydrAMINE HCL 50 MG/ML VIAL ONE (22:38)
[2019-04-18] MEDS ORDERED: ONDANSETRON HCL/PF 4 MG/2 ML VIAL ONE (22:38)
[2019-04-18] MEDS ORDERED: ASPIRIN 81 MG TAB.CHEW ONE (22:39)
[2019-04-18] MEDS ORDERED: HYDROMORPHONE HCL 2 MG TABLET ONE (22:39)
--- NOTE | 2019-04-18 22:44 | NUR ---
PT TAKEN TO RADIOLOGY
[2019-04-18] MEDS ORDERED: ONDANSETRON HCL/PF - ER 4 MG/2 ML VIAL IV ONE (23:00)
[2019-04-18] MEDS ORDERED: diphenhydrAMINE HCL 50 MG/ML VIAL IV ONE (23:00)
[2019-04-18 23:03] LABS: D-DIMER 1.55 mg/L(FEU (0.17-0.50)
[2019-04-18 23:19] LABS: ALBUMIN 3.6 g/dL (3.4-5.0); BILIRUBIN,DIRECT 0.1 mg/dL (0.0-0.2); BILIRUBIN,TOTAL 0.3 mg/dL (0.2-1.0); POTASSIUM 4.4 mmol/L (3.5-5.1); TOTAL PROTEIN, SERUM 7.5 g/dL (6.4-8.2)
[2019-04-18 23:23] LABS: CREATININE 10.4 mg/dL (0.6-1.3)
[2019-04-18] MEDS ORDERED: ACETAMINOPHEN 325 MG TABLET PO PRN (23:30)
[2019-04-18] MEDS ORDERED: MAGNESIUM HYDROXIDE 30 ML UDC PO PRN (23:30)
[2019-04-18] MEDS ORDERED: ONDANSETRON HCL/PF 4 MG/2 ML VIAL IVP PRN (23:30)
[2019-04-18] MEDS ORDERED: TEMAZEPAM 15 MG CAPSULE PO PRN (23:30)
[2019-04-18] MEDS ORDERED: MAG HYDROX/AL HYDROX/SIMETH 30 ML UDC PO PRN (23:30)
--- NOTE | 2019-04-18 23:31 | NUR ---
REPORT GIVEN TO AMANDA STREET
--- NOTE | 2019-04-18 23:45 | NUR ---
RN OPEN NOTES RECEIVED PATIENT FROM ER VIA GURHAROON. A/OX4. NO SIGNS OF DISTRESS OR DISCOMFORT. BREATHING EVEN AND UNLABORED. IV ACCESS IN SALBADOR, PATENT AND INTACT, NO SIGNS OF REDNESS OR INFILTRATION. HAS KATERIN AV SHUNT, INTACT. ATTACHED PATIENT TO TELE MONITOR WITH SR 89 NOTED. ORIENTED PATIENT TO UNIT AND ROOM. BED IN LOW LOCKED POSITION WITH SIDE RAILS X2. CALL LIGHT WITHIN REACH. WILL CONTINUE TO MONITOR.
[2019-04-19] VITALS (8 sets, daily range): BP systolic 116–200; BP diastolic 63–116
[2019-04-19] MEDS: hydrALAZINE HCL 50 MG TABLET PO SCH ×3 (00:16→16:31)
[2019-04-19] MEDS: NIFEdipine XL (30MG) 30 MG TAB PO SCH ×3 (00:17→23:44)
[2019-04-19] MEDS: LOSARTAN POTASSIUM 25 MG TABLET PO SCH ×2 (00:17→08:36)
[2019-04-19] MEDS: HYDROMORPHONE INJ 2 MG/ML DISP.SYRIN IV PRN ×5 (01:44→22:43)
--- NOTE | 2019-04-19 01:44 | NUR ---
RN NOTES ADMINISTERED DILAUDID 1MG ORDERED FOR BILATERAL BREAST PAIN 9/10 RADIATING TO RIB CAGE, AT PATIENT REQUEST. VSS. WILL CONTINUE TO MONITOR.
[2019-04-19] MEDS: diphenhydrAMINE HCL 50 MG/ML VIAL IV PRN ×2 (04:10→16:41)
--- NOTE | 2019-04-19 04:10 | NUR ---
RN NOTES ADMINISTERED BENADRYL 25MG ORDERED FOR ITCHING AT PATIENT REQUEST. VSS. WILL CONTINUE TO MONITOR.
--- NOTE | 2019-04-19 06:50 | NUR ---
RN NOTES ADMINISTERED DILAUDID 1MG ORDERED FOR BILATERAL BREAST PAIN 9/10 RADIATING TO RIB CAGE, AT PATIENT REQUEST. VSS. WILL CONTINUE TO MONITOR.
--- NOTE | 2019-04-19 07:01 | NUR ---
RN CLOSING NOTES PATIENT AWAKE IN BED WITH FAMILY AT BEDSIDE. A/O X4. NO SIGNS OF DISTRESS OR DISCOMFORT. BREATHING EVEN AND UNLABORED. IV ACCESS IN SALBADOR, PATENT AND INTACT, NO SIGNS OF REDNESS OR INFILTRATION. HAS KATERIN AV SHUNT, INTACT. ON TELE MONITORING WITH SR 89 NOTED. ALL NEEDS MET. NO SIGNIFICANT CHANGES THROUGH THE NIGHT. BED IN LOW LOCKED POSITION WITH SIDE RAILS X2. CALL LIGHT WITHIN REACH. WILL ENDORSE TO AM SHIFT FOR FRANSICO.
--- NOTE | 2019-04-19 07:30 | NUR ---
RN MS NOTES PT IN BED, ASLEEP, EASY TO AROUSE, ALERT AND ORIENTED, NO COMPLAINT OF PAIN OR ANY DISCOMFORT AT THIS TIME, RESPIRATIONS NORMAL, CALL LIGHT WITHIN REACH.
[2019-04-19 08:07] LABS: BASOPHILS % (AUTO) 0.4 % (0.0-2.0); EOSINOPHILS % (AUTO) 15.1 % (0.0-6.0); HEMATOCRIT 26 % (33-45); HEMOGLOBIN 8.7 g/dL (11.5-14.8); LYMPHOCYTES # (AUTO) 0.9 /CMM (0.8-4.8); LYMPHOCYTES % (AUTO) 17.6 % (20.0-44.0); MEAN CORPUSCULAR HGB CONC 33 g/dl (31.0-36.0); MEAN CORPUSCULAR VOLUME 100 fL (82-100); MONOCYTES # (AUTO) 0.6 /CMM (0.1-1.30); NEUTROPHILS # (AUTO) 2.7 /CMM (1.8-8.9); NEUTROPHILS % (AUTO) 54.9 % (43.0-81.0); PLATELET COUNT (AUTO) 151 /CMM (150-450); RED BLOOD CELL COUNT(AUTO) 2.64 MIL/uL (4.0-5.2)
[2019-04-19 08:15] LABS: MAGNESIUM 2.1 mg/dL (1.8-2.4); PHOSPHORUS 5.5 mg/dL (2.5-4.9); POTASSIUM 4.8 mmol/L (3.5-5.1)
[2019-04-19 08:18] LABS: CREATININE 10.7 mg/dL (0.6-1.3)
[2019-04-19] MEDS: GABAPENTIN 100 MG CAPSULE PO SCH ×3 (08:35→17:22)
[2019-04-19] MEDS: SEVELAMER CARBONATE 800 MG TABLET PO SCH ×3 (08:35→17:22)
[2019-04-19] MEDS: CALCIUM ACETATE 667 MG TABLET PO SCH ×3 (08:35→17:22)
[2019-04-19] MEDS: PANTOPRAZOLE 40 MG TABLET.DR PO SCH (08:35)
[2019-04-19] MEDS: TOPIRAMATE 100 MG TABLET PO SCH ×2 (08:36→17:22)
[2019-04-19] MEDS: CITALOPRAM HYDROBROMIDE 20 MG TABLET PO SCH (08:36)
[2019-04-19] MEDS: ASPIRIN EC 81 MG TABLET.DR PO SCH (08:36)
[2019-04-19] MEDS: CARVEDILOL 12.5 MG TABLET PO SCH ×2 (08:37→16:31)
[2019-04-19] MEDS: APIXABAN 5 MG TABLET PO SCH ×2 (08:38→17:23)
--- NOTE | 2019-04-19 08:45 | NUR ---
RN NOTE RECEIVED ORDER FROM DR WARE TO DISCONTINUE TELE AND TRANSFER THE PATIENT TO MS.
--- NOTE | 2019-04-19 13:00 | NUR ---
RN MS NOTES PT SEEN BY DR. WARE CT ANGIO OF THE HEART ORDERED, PT INFORMED, VERBALIZED UNDERSTANDING, CONSENTS SIGNED.
[2019-04-19] MEDS ORDERED: METOPROLOL TARTRATE INJ 5 MG/5 ML AMPUL ONE (14:14)
[2019-04-19] MEDS ORDERED: IOHEXOL-350 100 ML VIAL IV ONE (14:22)
[2019-04-19] MEDS ORDERED: CT SWABBABLE VALVE TRANS SET 1 EA INFUS.SET MC ONE (14:22)
[2019-04-19] MEDS ORDERED: IV NS 0.9% 250 ML IV ONE (14:22)
[2019-04-19] MEDS ORDERED: NITROGLYCERIN 4.9 GM SPRAY SL PRN (14:30)
[2019-04-19] MEDS ORDERED: IV NS 0.9% 500 ML IV PRN (14:30)
[2019-04-19] MEDS: METOPROLOL TARTRATE INJ 5 MG/5 ML AMPUL IVP PRN ×4 (14:33→14:48)
--- NOTE | 2019-04-19 15:24 | NUR ---
CTA HEART completed, pt denies Cp or SOB, VSS report given to Casandra STREET
--- NOTE | 2019-04-19 18:06 | NUR ---
RN MS NOTES PT AWAKE, ALERT AND ORIENTED, EATING DINNER, NO COMPLAINT AT THIS TIME, RESPIRATIONS NORMAL, CALL LIGHT WITHIN REACH, AMBULATES TO THE BATHROOM WITH STEADY GAIT, PM MEDS GIVEN, ALL NEEDS ATTENDED.
--- NOTE | 2019-04-19 18:36 | NUR ---
RN MS NOTES PT SEEN BY DR FRANZ, PLAN OF CARE DISCUSSED WITH PT, VERBALIZED UNDERSTANDING, PAIN MEDS GIVEN ORDERED.
--- NOTE | 2019-04-19 19:05 | NUR ---
RN INITIAL NOTES: RECEIVED REPORT FROM [address]OR[address] STRE[address]. PT IN BED, SLEEPING, APPEARS CALM AND COMFORTABLE. AROUSES TO TACTILE STIMULI. PT RECEIVED DILAUDID AT 1830. IV ACCESS ON SALBADOR, PATENT AND FLUSHING WELL, ON HL. PT HAS KATERIN AV SHUNT FOR HD TONIGHT AT 1930. CT ANGIO NEGATIVE, POSSIBLE DC IN AM. SAFETY PRECAUTIONS FOR FALL INITIATED.CALL LIGHT IN REACH, WILL CONTINUE MONITORING PT.
--- NOTE | 2019-04-19 19:30 | NUR ---
RN NOTES: HD RN BRANDON STARTED HEMODIALYSIS AT THIS TIME
[2019-04-19] MEDS ORDERED: QUETIAPINE FUMARATE 100 MG TABLET PO SCH (22:00)
--- NOTE | 2019-04-19 22:30 | NUR ---
RN NOTES: JUST FINISHED WITH HD, 2L OUTPUT. VS TAKEN AND RECORDED, PLEASE SEE VS LOG
--- NOTE | 2019-04-19 22:44 | NUR ---
PRN DILAUDID: PT IN BED, C/O LEFT BREAST PAIN 01/22 REQUESTING FOR HER DILAUDID. PT WANTS SEROQUEL AND PROCARDIA AT LATER TIME. PRN DILAUDID 1MG IVP ADMINISTERED TO PT AT THIS TIME, WILL CONTINUE TO MONITOR AND REASSESS PT.
--- NOTE | 2019-04-19 23:47 | NUR ---
LATE ADMIN OF PROCARDIA AND SEROQUEL: LATE ADMIN OF MEDICATIONS. PT ONGOING HD AT 1930, HD COMPLETED AT 2230, THEN PT REQUESTED TO HAVE MEDICATION AT LATER TIME SHE WANTS HER PAIN MEDS FIRST, DUE TO RIGHT BREAST PAIN. PRN DILAUDID ADMINISTERED. AFTER AN HOUR, RECHECK BP, PT REQUESTED TO HAVE THE PROCARDIA AND SEROQUEL.
--- NOTE | 2019-04-20 06:41 | NUR ---
END OF SHIFT SUMMARY: PT SLEEPING, APPEARS CALM AND COMFORTABLE. RESPIRATIONS EVEN AND UNLABORED. NOCTURNAL CONTINUOUS PULSE OX MONITORING COMPLETED, PLEASE SEE GREEN CHART FOR O2 READINGS ON RA. SALBADOR IV ACCESS REMAINS IN PLACED, PATENT AND FLUSHING WELL, ON HL. POSSIBLE DC TODAY. VS REMAINS STABLE, NEEDS ATTENDED. SAFETY PRECAUTIONS FOR FALL REMAINS ENGAGED, CALL LIGHT IN REACH, WILL ENDORSE TO DAY RN FOR CONTINUITY OF CARE.
--- NOTE | 2019-04-20 07:30 | NUR ---
RN MS NOTES PT IN BED, ASLEEP, RESPIRATIONS NORMAL AND NON LABORED, EASILY AROUSABLE BY VERBAL STIMULI, ALERT AND ORIENTED, NO COMPLAINT OF PAIN AT THIS TIME, NEEDS ATTENDED.
[2019-04-20] MEDS: PANTOPRAZOLE 40 MG TABLET.DR PO SCH (07:50)
[2019-04-20 08:00] VITALS: BP 130/52
[2019-04-20] MEDS: SEVELAMER CARBONATE 800 MG TABLET PO SCH ×2 (08:08→12:44)
[2019-04-20] MEDS: CALCIUM ACETATE 667 MG TABLET PO SCH ×2 (08:08→12:44)
[2019-04-20] MEDS: NIFEdipine XL (30MG) 30 MG TAB PO SCH (08:55)
[2019-04-20] MEDS: CITALOPRAM HYDROBROMIDE 20 MG TABLET PO SCH (08:55)
[2019-04-20 08:56] VITALS: BP 130/52
[2019-04-20] MEDS: CARVEDILOL 12.5 MG TABLET PO SCH (08:56)
[2019-04-20] MEDS: ASPIRIN EC 81 MG TABLET.DR PO SCH (08:56)
[2019-04-20] MEDS: TOPIRAMATE 100 MG TABLET PO SCH (08:56)
[2019-04-20] MEDS: LOSARTAN POTASSIUM 25 MG TABLET PO SCH (08:56)
[2019-04-20] MEDS: GABAPENTIN 100 MG CAPSULE PO SCH ×2 (08:56→12:44)
[2019-04-20] MEDS: hydrALAZINE HCL 50 MG TABLET PO SCH (08:56)
[2019-04-20] MEDS: APIXABAN 5 MG TABLET PO SCH (08:57)
--- NOTE | 2019-04-20 09:25 | NUR ---
RT NOTE ATTEMPTED AND ABG DRAW AND PATIENT REFUSED THE PROCEDURE AT THIS TIME.
[2019-04-20] MEDS: diphenhydrAMINE HCL 50 MG/ML VIAL IV PRN (11:20)
--- NOTE | 2019-04-20 12:31 | NUR ---
RN MS NOTES PT IN BED, RESTING, ALERT AND ORIENTED, NO COMPLAINT AT THIS TIME, REFUSED MD KRISTIAN AWARE, AMBULATES WITH STEADY GAIT, NEEDS ATTENDED.
--- NOTE | 2019-04-20 15:12 | NUR ---
RN MS NOTES PT IN BED, AWAKE, ALERT AND ORIENTED, NO COMPLAINT OF PAIN, NOT IN DISTRESS, AMBULATES WITH STEADY GAIT, INDEPENDENT WITH ALL ADL'S, REFUSED DIALYSIS TODAY, STATED THAT SHE WILL GO TO HER DIALYSIS CENTER IN THE MORNING, DR. FRANZ INFORMED, DISCHARGE ORDER GIVEN, DISCHARGE AND MEDICATION INSTRUCTIONS AND EDUCATION PROVIDED TO PT, VERBALIZED UNDERSTANDING, BELONGINGS ACCOUNTED FOR, NO BLEEDING NOTED TO AV SHUNT SITE AT LEFT UPPER ARM, ASSISTED PT TO HOSPITAL LOBBY, LEFT IN STABLE CONDITION.
== END 2019-04-20 15:15 | disposition home or self-care (01) | DRG 194 ==
LOC: ER 22:04 → TELE 23:15 → MED 04-19 09:09
PROVIDERS: ADMIT Nurse Practitioner Acute Care; ATTEND Nurse Practitioner Acute Care
PROC: 5A1D70Z Performance of Urinary Filtration, Intermittent, Less than 6 Hours Per Day (ICD-10-PCS; principal; 2019-04-19)
DX: I13.2 Hypertensive heart and chronic kidney disease with heart failure and with stage 5 chronic kidney disease, or end stage renal disease (principal); I21.A1 Myocardial infarction type 2; I27.20 Pulmonary hypertension, unspecified; N18.6 End stage renal disease; E66.01 Morbid (severe) obesity due to excess calories; E44.1 Mild protein-calorie malnutrition; E78.5 Hyperlipidemia, unspecified; Z86.73 Personal history of transient ischemic attack (TIA), and cerebral infarction without residual deficits; Z86.718 Personal history of other venous thrombosis and embolism; G43.909 Migraine, unspecified, not intractable, without status migrainosus; Z99.2 Dependence on renal dialysis; J45.909 Unspecified asthma, uncomplicated; K21.9 Gastro-esophageal reflux disease without esophagitis; G40.909 Epilepsy, unspecified, not intractable, without status epilepticus; D63.1 Anemia in chronic kidney disease; F41.9 Anxiety disorder, unspecified; F32.9 Major depressive disorder, single episode, unspecified; I16.0 Hypertensive urgency; I70.90 Unspecified atherosclerosis; Z86.711 Personal history of pulmonary embolism; R29.810 Facial weakness; D24.2 Benign neoplasm of left breast; D24.1 Benign neoplasm of right breast; Z68.33 Body mass index [BMI] 33.0-33.9, adult; G47.30 Sleep apnea, unspecified; F11.10 Opioid abuse, uncomplicated; Q78.9 Osteochondrodysplasia, unspecified; I50.33 Acute on chronic diastolic (congestive) heart failure; Z79.01 Long term (current) use of anticoagulants; G89.4 Chronic pain syndrome
CPT/HCPCS: 36415; 71045-TC; 75574; 80048-TC; 80061-TC; 80076-TC; 83735-TC; 83880; 84100-TC; 84484-TC; 84703-TC; 85025-TC; 85378-TC; 85730-TC; 87081-TC; 93307-TC; G0378; J1170; J1200; J2405; J3490; J7050; Q9967

== ENCOUNTER 2019-04-28 02:21 | Inpatient (IN) | payer MEDICAID ==
[~2019-04-28] VITALS: Ht 165.1 cm; Wt 95.3 kg
--- NOTE | 2019-04-28 03:12 | NUR ---
PATIENT BIB RA FOR RIGHT-SIDED CHEST PAIN THAT DOES NOT RADIATE ANYWHERE. PT MISSED Thursday04/25/2019 AND Thursday04/27/2019 DIALYSIS, HER LAST DIALYSIS WAS ON Thursday04/21/2019. AAOX4. NO SOB. BREATHING EVENLY AND UNLABORED. NOT IN ANY DISTRESS. CONNECTED TO MONITOR.
[2019-04-28] MEDS ORDERED: ONDANSETRON HCL/PF 4 MG/2 ML VIAL IVP ONE (03:30)
[2019-04-28] MEDS ORDERED: NITROGLYCERIN PACKET 1 GM PACKET TD ONE (03:30)
[2019-04-28] MEDS ORDERED: HYDROMORPHONE INJ 2 MG/ML DISP.SYRIN IV ONE (03:30)
[2019-04-28] MEDS ORDERED: NITROGLYCERIN PACKET 1 GM PACKET ONE (03:59)
[2019-04-28 04:26] LABS: BASOPHILS # (AUTO) 0.1 /CMM (0.0-0.2); EOSINOPHILS % (AUTO) 5.6 % (0.0-6.0); HEMATOCRIT 25 % (33-45); HEMOGLOBIN 8.4 g/dL (11.5-14.8); LYMPHOCYTES # (AUTO) 0.6 /CMM (0.8-4.8); LYMPHOCYTES % (AUTO) 9.3 % (20.0-44.0); MEAN CORPUSCULAR HGB CONC 33 g/dl (31.0-36.0); MEAN CORPUSCULAR VOLUME 100 fL (82-100); MONOCYTES # (AUTO) 0.6 /CMM (0.1-1.30); MONOCYTES % (AUTO) 10.4 % (2.0-12.0); NEUTROPHILS # (AUTO) 4.6 /CMM (1.8-8.9); NEUTROPHILS % (AUTO) 73.7 % (43.0-81.0); PLATELET COUNT (AUTO) 124 /CMM (150-450); RED BLOOD CELL COUNT(AUTO) 2.54 MIL/uL (4.0-5.2); WHITE BLOOD COUNT (AUTO) 6.2 K/uL (4.3-11.0)
[2019-04-28] MEDS ORDERED: ONDANSETRON HCL/PF 4 MG/2 ML VIAL ONE (04:26)
[2019-04-28] MEDS ORDERED: HYDROMORPHONE 1 MG/1 ML DISP.SYRIN ONE (04:27)
[2019-04-28 04:46] LABS: ALBUMIN 3.5 g/dL (3.4-5.0); BILIRUBIN,DIRECT 0.1 mg/dL (0.0-0.2); BILIRUBIN,TOTAL 0.3 mg/dL (0.2-1.0); CALCIUM, SERUM 7.7 mg/dL (8.5-10.1); TOTAL PROTEIN, SERUM 6.9 g/dL (6.4-8.2)
[2019-04-28 04:48] LABS: CREATININE 12.1 mg/dL (0.6-1.3)
[2019-04-28] MEDS ORDERED: hydrALAZINE HCL IV 20 MG VIAL ONE (05:39)
[2019-04-28] MEDS ORDERED: hydrALAZINE HCL IV 20 MG VIAL IV ONE (06:00)
[2019-04-28] MEDS ORDERED: ACETAMINOPHEN 325 MG TABLET PO PRN (06:30)
[2019-04-28] MEDS ORDERED: ONDANSETRON HCL/PF 4 MG/2 ML VIAL IVP PRN (06:30)
[2019-04-28] MEDS ORDERED: HYDROCODONE/APAP 5/325MG 1 EACH TABLET PO PRN (06:30)
[2019-04-28] MEDS ORDERED: ZOLPIDEM TARTRATE 5 MG TABLET PO PRN (06:30)
[2019-04-28] MEDS ORDERED: Z GUARD REMEDY 2 OZ OINT TP PRN (06:30)
[2019-04-28] MEDS ORDERED: MAGNESIUM HYDROXIDE 30 ML UDC PO PRN (06:30)
[2019-04-28] MEDS ORDERED: MAG HYDROX/AL HYDROX/SIMETH 30 ML UDC PO PRN (06:30)
[2019-04-28] MEDS ORDERED: hydrALAZINE HCL IV 20 MG VIAL IV PRN (06:30)
[2019-04-28] MEDS ORDERED: LABETALOL HCL IV 100MG VIAL ONE (06:43)
--- NOTE | 2019-04-28 06:47 | NUR ---
BP STILL NOTED AT 215/126 W/ A HR OF 80 DESPITE GIVING HYDRALAZINE 20MG EARLIER. MD MADE AWARE AND RECEIVED AN ORDER TO GIVE LABETALOL 20MG VIA IV. ORDERS NOTED AND CARRIED OUT.
[2019-04-28] MEDS ORDERED: LABETALOL 20 MG/4 ML VIAL IV ONE (07:00)
--- NOTE | 2019-04-28 07:27 | NUR ---
BP DOWN TO 174/93 AFTER RECEIVING LABETALOL 20MG
--- NOTE | 2019-04-28 07:37 | NUR ---
RECEIVED REPORT FROM YENIFER GREENWOOD FOR FRANSICO, PT IS AAOX3, NOT IN RESPIRATORY DISTRESS, KEPT RESTED AND COMFORTABLE, AWAITING ROOM FOR ADMISSION.
--- NOTE | 2019-04-28 08:45 | NUR ---
REPORT GIVEN TO YENIFER RAIN FOR FRANSICO.
--- NOTE | 2019-04-28 09:15 | NUR ---
HEATING TECHNICIANPOLYMER TESTER NOTES Received Patient intermittently asleep. A/O x 4. BP elevated 180/105. Administered Apresoline 10mg IVP at this time. Will continue to monitor. Breathing even and unlabored on room air with no respiratory distress. Patient stated chest pain /. Will intervene as ordered. Telemonitor in place and patent reading SR with HR-75. Left Arm AV shunt intact with bruit and thrill noted. 20g PIV on SALBADOR clean, intact, patent and flushing well. Safety precautions in place. Bed locked and set to lowest position with side rails x 2 up. Call light within reach. Will continue to monitor.
[2019-04-28 09:30] VITALS: BP 173/101
[2019-04-28] MEDS ORDERED: QUET100T PO (10:27)
[2019-04-28] MEDS: GABAPENTIN 100 MG CAPSULE PO SCH ×2 (12:54→19:06)
[2019-04-28] MEDS: HYDROMORPHONE 1 MG/1 ML DISP.SYRIN IV PRN ×2 (12:55→22:22)
[2019-04-28] MEDS: SEVELAMER CARBONATE 800 MG TABLET PO SCH ×2 (12:59→19:06)
[2019-04-28] MEDS: CALCIUM ACETATE 667 MG TABLET PO SCH ×2 (12:59→19:06)
--- NOTE | 2019-04-28 14:20 | NUR ---
SUPERVISOR MACHINING NOTES Patient wants to go AMA. Patient removed telemonitoring. AMA paperwork signed and placed in chart.
--- NOTE | 2019-04-28 14:31 | NUR ---
LEAD SLOT TECHNICIAN NOTES Per Patient, leaving AMA d/t ineffective pain management. Administered Dilaudid 1mg IVP at 1255 for 10/10 pain on chest, bilateral breasts, headache radiating to neck. Patient stated on reassessment pain 10/10. Per Patient request, for pain management now. Per Sushma NAM, Dilaudid 1mg IVP x 1 dose now. Order noted and carried out. Will continue to monitor.
[2019-04-28] MEDS ORDERED: HYDROMORPHONE INJ 0.5 MG/0.5 ML SYRINGE IM ONE (15:00)
[2019-04-28] MEDS ORDERED: HYDROMORPHONE INJ 0.5 MG/0.5 ML SYRINGE IV ONE (15:00)
[2019-04-28] MEDS ORDERED: HYDROMORPHONE 1 MG/1 ML DISP.SYRIN IM ONE (15:18)
[2019-04-28 16:00] VITALS: BP 159/93
--- NOTE | 2019-04-28 16:00 | NUR ---
NEUROPATHOLOGIST NOTES Obtained and placed in chart, Hemodialysis consent at this time.
[2019-04-28] MEDS ORDERED: LIDOCAINE HCL/PF 1% 30 ML VIAL IM ONE (16:30)
[2019-04-28] MEDS ORDERED: diphenhydrAMINE HCL 50 MG/ML VIAL IV PRN (16:30)
[2019-04-28] MEDS: TOPIRAMATE 100 MG TABLET PO SCH (19:06)
[2019-04-28] MEDS: hydrALAZINE HCL 50 MG TABLET PO SCH (19:06)
[2019-04-28] MEDS: APIXABAN 5 MG TABLET PO SCH (19:07)
--- NOTE | 2019-04-28 19:15 | NUR ---
FIREARMS ASSEMBLY SUPERVISOR OPENING NOTES RECEIVED PATIENT SITTING UP IN BED, ALERT, ORIENTED X 4. BREATHING EVEN AND UNLABORED. NOT IN ANY DISTRESS. ON ROOM AIR. PATIENT RECEIVED WITH NO IV LINE. TELE MONITOR IN PLACE- SINUS RHYTHM 76. SAFETY MEASURES IN PLACE. CALL LIGHT WITHIN REACH. BED IN LOW, LOCKED POSITION. WILL CONTINUE TO MONITOR ACCORDINGLY
--- NOTE | 2019-04-28 19:47 | NUR ---
DIGITAL MARKETING APPRENTICE CLOSING NOTES Patient resting in bed. A/O x 4. VS stable with no acute distress. Breathing even and unlabored on room air with no respiratory distress. No signs and symptoms of pain at this time. Patient removed telemonitor but is now okay with replacing telemonitor. Will endorse to oncoming shift. Patient refused skin assessment. Will endorse to oncoming shift. Left Arm AV shunt intact with bruit and thrill noted. Safety precautions in place. Bed locked and set to lowest position with side rails x 2 up. All needs rendered at this time. Call light within reach. Will endorse plan of care to oncoming shift.
[2019-04-28 20:00] VITALS: BP 178/104
[2019-04-28] MEDS: CARVEDILOL 12.5 MG TABLET PO SCH (20:18)
[2019-04-28] MEDS: NIFEdipine XL 60 MG TAB PO SCH (20:19)
--- NOTE | 2019-04-28 21:55 | NUR ---
RN NOTES TELEPHONE ORDER RECEIVED FROM DR. MERLOS FOR MIDLINE INSERTION. NOTED AND CARRIED OUT. CATTLE SORTER JO-ANN MADE AWARE.
[2019-04-28] MEDS ORDERED: QUETIAPINE FUMARATE 100 MG TABLET PO SCH (22:00)
--- NOTE | 2019-04-28 22:08 | NUR ---
RN NOTES MIDLINER CURRENTLY AT PATIENT'S BEDSIDE
--- NOTE | 2019-04-28 22:15 | NUR ---
RN NOTES SALBADOR MIDLINE G#18 INSERTED BY RN JESÚS
[2019-04-29] VITALS: BP 160/89
[2019-04-29 04:00] VITALS: BP 139/83
--- NOTE | 2019-04-29 06:33 | NUR ---
ROLLER HAND CLOSING NOTES PATIENT SITTING UP IN BED, WATCHING TV. ALERT, ORIENTED X 4. BREATHING EVEN AND UNLABORED. NOT IN ANY DISTRESS. ON ROOM AIR. SALBADOR MIDLINE G#18 INTACT AND PATENT. TELE MONITOR IN PLACE- SINUS RHYTHM 78. SAFETY MEASURES IN PLACE. CALL LIGHT WITHIN REACH. BED IN LOW, LOCKED POSITION. WILL ENDORSE FRANSICO TO ONCOMING RN Addendum: 04/29/19 at 0638 by JEOVANNY WAYNE RN ADDITIONAL NOTES PATIENT STILL REFUSED SKIN ASSESSMENT
--- NOTE | 2019-04-29 07:15 | NUR ---
POWER GRADER OPERATOR NOTES PATIENT AWAKE SITTING IN BED, NO RESPIRATORY DISTRESS, NO C/O PAIN AT THIS TIME. WIRELESS ARCHITECT ON SINUS RHYTHM 86, SKIN WARM TO TOUCH, IV ACCESS SITE INTACT AND PATENT. PATIENT'S NEEDS ATTENDED. BED ON LOWEST LOCKED POSITION, CALL LIGHT WITHIN REACH. WILL CONTINUE TO MONITOR.
[2019-04-29 07:28] LABS: BASOPHILS % (AUTO) 0.8 % (0.0-2.0); EOSINOPHILS % (AUTO) 8.4 % (0.0-6.0); HEMATOCRIT 24 % (33-45); HEMOGLOBIN 7.9 g/dL (11.5-14.8); LYMPHOCYTES # (AUTO) 0.4 /CMM (0.8-4.8); MEAN CORPUSCULAR HGB CONC 33 g/dl (31.0-36.0); MEAN CORPUSCULAR VOLUME 99 fL (82-100); MONOCYTES # (AUTO) 0.5 /CMM (0.1-1.30); MONOCYTES % (AUTO) 13.3 % (2.0-12.0); NEUTROPHILS # (AUTO) 2.6 /CMM (1.8-8.9); NEUTROPHILS % (AUTO) 66.5 % (43.0-81.0); PLATELET COUNT (AUTO) 129 /CMM (150-450); RED BLOOD CELL COUNT(AUTO) 2.41 MIL/uL (4.0-5.2); WHITE BLOOD COUNT (AUTO) 3.9 K/uL (4.3-11.0)
[2019-04-29 07:38] LABS: THYROID STIMULATING HORMONE 6.043 uIU/mL (0.358-3.74)
[2019-04-29 07:39] LABS: CALCIUM, SERUM 7.8 mg/dL (8.5-10.1); MAGNESIUM 2.1 mg/dL (1.8-2.4); PHOSPHORUS 6.1 mg/dL (2.5-4.9); POTASSIUM 5.1 mmol/L (3.5-5.1)
[2019-04-29 07:40] LABS: CREATININE 10.6 mg/dL (0.6-1.3)
[2019-04-29 08:00] VITALS: BP 143/81
[2019-04-29] MEDS: SEVELAMER CARBONATE 800 MG TABLET PO SCH ×2 (08:31→13:18)
[2019-04-29] MEDS: NIFEdipine XL 60 MG TAB PO SCH (08:31)
[2019-04-29 08:32] VITALS: BP 143/81
[2019-04-29] MEDS: CARVEDILOL 12.5 MG TABLET PO SCH (08:32)
[2019-04-29] MEDS: GABAPENTIN 100 MG CAPSULE PO SCH ×2 (08:32→13:18)
[2019-04-29] MEDS: hydrALAZINE HCL 50 MG TABLET PO SCH (08:32)
[2019-04-29] MEDS: TOPIRAMATE 100 MG TABLET PO SCH (08:32)
[2019-04-29] MEDS: CALCIUM ACETATE 667 MG TABLET PO SCH ×2 (08:33→13:18)
[2019-04-29] MEDS: APIXABAN 5 MG TABLET PO SCH (08:35)
[2019-04-29] MEDS ORDERED: LOSARTAN POTASSIUM 25 MG TABLET PO SCH (09:00)
[2019-04-29] MEDS ORDERED: CITALOPRAM HYDROBROMIDE 20 MG TABLET PO SCH (09:00)
[2019-04-29] MEDS ORDERED: ASPIRIN EC 81 MG TABLET.DR PO SCH (09:00)
--- NOTE | 2019-04-29 12:20 | NUR ---
Social service consult requested for possible homelessness. Pt. is a 33 year old female who frequently visits [facility] ED and inpatient. Pt. is non-complaint with her dialysis and ongoing treatment. Pt. states wants to go AMA and leave for home because she is no longer getting her pain meds. Homeless Patient waiver form was provided to pt's RN Mayra to have pt, sign upon discharge.
--- NOTE | 2019-04-29 14:55 | NUR ---
M/S RN NOTES PATIENT LEFT MD DEYA AWARE. PATIENT GIVEN RISKS AND BENEFITS, VERBALIZED UNDERSTANDING. PATIENT SIGNED AMA FORM AND HOMELESS PATIENT WAIVER FORM.
--- NOTE | 2019-04-29 18:16 | NUR ---
Very familiar with patient, has frequent visits and hx of non-compliance. She is currently homeless, states she is ambulatory and independent with adl's. Has ESRD on HD but non-compliant with treatments. She receives hemodialysis every MWF at 3:30pm at [facility] [phone]. Patient signed out AMA, was advised with the risk and complications. Addendum: 04/29/19 at 1816 by GENOVEVA HAYES RN Amended: Links added.
== END 2019-04-29 14:50 | disposition left against medical advice (07) | DRG 194 ==
LOC: ER 02:24 → TELE 08:37 → MED 04-29 08:43
PROVIDERS: ADMIT Hospitalist; ATTEND Hospitalist
PROC: 5A1D70Z Performance of Urinary Filtration, Intermittent, Less than 6 Hours Per Day (ICD-10-PCS; principal; 2019-04-28)
DX: I13.2 Hypertensive heart and chronic kidney disease with heart failure and with stage 5 chronic kidney disease, or end stage renal disease (principal); D61.818 Other pancytopenia; N18.6 End stage renal disease; G45.9 Transient cerebral ischemic attack, unspecified; E87.5 Hyperkalemia; K21.9 Gastro-esophageal reflux disease without esophagitis; I50.33 Acute on chronic diastolic (congestive) heart failure; D63.1 Anemia in chronic kidney disease; I16.0 Hypertensive urgency; E87.70 Fluid overload, unspecified; Z99.2 Dependence on renal dialysis; E78.5 Hyperlipidemia, unspecified; G43.909 Migraine, unspecified, not intractable, without status migrainosus; G40.909 Epilepsy, unspecified, not intractable, without status epilepticus; E66.9 Obesity, unspecified; Z68.34 Body mass index [BMI] 34.0-34.9, adult; Z91.19 Patient's noncompliance with other medical treatment and regimen; Z91.15 Patient's noncompliance with renal dialysis; Z91.14 Patient's other noncompliance with medication regimen; Z86.718 Personal history of other venous thrombosis and embolism; Z86.711 Personal history of pulmonary embolism; Z86.73 Personal history of transient ischemic attack (TIA), and cerebral infarction without residual deficits; J45.909 Unspecified asthma, uncomplicated; Z79.01 Long term (current) use of anticoagulants; Z59.0 Homelessness; R29.810 Facial weakness; I25.2 Old myocardial infarction; G89.4 Chronic pain syndrome
CPT/HCPCS: 36415; 71045-TC; 80048-TC; 80061-TC; 80076-TC; 83735-TC; 83880; 84100-TC; 84443-TC; 84484-TC; 85025-TC; 85378-TC; 86706; 87081-TC; 87340; 90935-TC; G0378; J0360; J1170; J1200; J2405; J3490

== ENCOUNTER 2019-07-06 00:12 | Inpatient (IN) | payer MEDICAID ==
[~2019-07-06] VITALS: Ht 165.1 cm; Wt 83.5 kg
[~2019-07-06 00:12] MED LIST changes: +QUET100T PO
--- NOTE | 2019-07-06 00:15 | NUR ---
PT C/O MIDSTERNAL CP RADIATING TO BACK SINCE 1500, HEADACHE, COUGH, CONGESTION X1 DAY. MISSED DIALYSIS TODAY AND THURSDAY. PT AMBULATORY. AOX4. RESP EVEN AND UNLABORED. PT ON MONITOR IN BED 11. WILL CONTINUE TO MONITOR.
--- NOTE | 2019-07-06 00:45 | NUR ---
RADIOLOGY AT BEDSIDE FOR XRAY
[2019-07-06 01:09] LABS: BASOPHILS # (AUTO) 0.1 /CMM (0.0-0.2); BASOPHILS % (AUTO) 1.6 % (0.0-2.0); EOSINOPHILS % (AUTO) 5.2 % (0.0-6.0); HEMATOCRIT 23 % (33-45); HEMOGLOBIN 7.6 g/dL (11.5-14.8); LYMPHOCYTES # (AUTO) 0.8 /CMM (0.8-4.8); LYMPHOCYTES % (AUTO) 14.3 % (20.0-44.0); MEAN CORPUSCULAR HGB CONC 33 g/dl (31.0-36.0); MEAN CORPUSCULAR VOLUME 98 fL (82-100); MONOCYTES # (AUTO) 0.5 /CMM (0.1-1.30); MONOCYTES % (AUTO) 9.8 % (2.0-12.0); NEUTROPHILS # (AUTO) 3.8 /CMM (1.8-8.9); NEUTROPHILS % (AUTO) 69.1 % (43.0-81.0); PLATELET COUNT (AUTO) 145 /CMM (150-450); RED BLOOD CELL COUNT(AUTO) 2.32 MIL/uL (4.0-5.2); WHITE BLOOD COUNT (AUTO) 5.4 K/uL (4.3-11.0)
[2019-07-06 01:31] LABS: CALCIUM, SERUM 8.5 mg/dL (8.5-10.1); POTASSIUM 5.2 mmol/L (3.5-5.1)
[2019-07-06 01:33] LABS: CREATININE 13.6 mg/dL (0.6-1.3)
--- NOTE | 2019-07-06 01:33 | NUR ---
BUN 86. CREATININE 13.6. MD AWARE.
[2019-07-06] MEDS ORDERED: hydrALAZINE HCL IV 20 MG VIAL IV ONE (02:00)
[2019-07-06] MEDS ORDERED: hydrALAZINE HCL IV 20 MG VIAL ONE (02:03)
--- NOTE | 2019-07-06 03:21 | NUR ---
BED 316-1
--- NOTE | 2019-07-06 03:35 | NUR ---
REPORT GIVEN TO YENIFER MILLARD FOR FRANSICO
[2019-07-06] MEDS ORDERED: Z GUARD REMEDY 2 OZ OINT TP PRN (04:00)
[2019-07-06] MEDS ORDERED: ONDANSETRON HCL/PF 4 MG/2 ML VIAL IVP PRN (04:00)
[2019-07-06 04:10] VITALS: BP 226/140
[2019-07-06] MEDS ORDERED: NIFEdipine XL (30MG) 30 MG TAB PO ONE (04:47)
[2019-07-06] MEDS ORDERED: MINOXIDIL (10MG) 10 MG TABLET PO ONE (05:00)
--- NOTE | 2019-07-06 05:20 | NUR ---
MS/RN RECEIVED PATIENT FROM [facility] VIA [facility] AT AROUND 0355. PATIENT WAS AWAKE, ALERT, ORIENTED, C/O GENERALIZED BODY PAIN, 10/10, BP 226/140, DIALYSIS PATIENT WHO MISSED HER DIALYSIS TODAY, PATIENT WAS VERY ANXIOUS AND AGITATED, CRYING DUE TO PAIN ACCORDING TO HER. NOTIFIED, DR. SHANKAR FRANZ ABOUT THE PAIN, AND THE BP, NO ORDER WAS RECEIVED FOR THE PAIN. MINOXIDIL 5 MG PO X 1 AND PROCARDIA XL 90 MG PO X1 WERE RECEIVED FOR THE BP. PATIENT WAS MADE AWARE ABOUT NO ORDER RECEIVED FOR THE PAIN, VERBALIZED UNDERSTANDING. PATIENT WAS NOT ANSWERING TON SOME QUESTIONS HENCE UNABLE TO DO PROPER ADMISSION ASSESSMENT. PATIENT ALSO REFUSED SKIN ASSESSMENT. PLAN OF CARE DISCUSSED, TAUGHT THE USE OF CALL LIGHT, VERBALIZED UNDERSTANDING, WILL MONITOR.
[2019-07-06] MEDS ORDERED: MINOXIDIL (2.5MG) 2.5 MG TABLET ONE (05:21)
--- NOTE | 2019-07-06 05:30 | NUR ---
MS/RN MINOXIDIL 5 MG PO AND PROCARDIA 90 MG PO WERE GIVEN FOR DEBORAH 226/140. WILL MONITOR BP.
--- NOTE | 2019-07-06 06:35 | NUR ---
MS/RN PATIENT IS SLEEPING AT THIS TIME, AROUSABLE, APPEAR COMFORTABLE, NO SIGNS OF DISTRESS NOTED, BP 197/118, ALL NEEDS ATTENDED AT THIS TIME, WILL CONTINUE TO MONITOR.
--- NOTE | 2019-07-06 07:27 | NUR ---
MS/RN PATIENT VERBALIZED THAT SHE WANTS TO GO HOME, INFORMED HER THE RISKS OF GOING HOME AGAINST MEDICAL ADVICE, PATIENT VERBALIZED UNDERSTANDING UNDERSTANDING BUT STILL INSISTED OF GOING HOME, PER PATIENT SHE WILL JUST GET DIALYSIS OUTPATIENT. PLACED A CALL TO THE [facility] LISTED IN THE CHART, ZENOBIA CLINTON, LEFT MESSAGE. PLACED A CALL TO [facility], LEFT MESSAGE. THE CHARGE NURSE LILLIAN SPOKE TO THE PATIENT, PATIENT AGREED TO STAY UNTIL SEEN BY THE DOCTOR . ENDORSED.
--- NOTE | 2019-07-06 07:59 | NUR ---
TELE/RN OPENING NOTES RECEIVED PATIENT RESTING ON BED COMFORTABLY. PATIENT VERBALIZED THAT SHE IS IN PAIN AT THE LEVEL OF 10/10. NO RESPIRATORY DISTRESS NOTED. PATIENT VERBALIZED THAT SHE WANTS TO GO HOME, INFORMED HER THE RISKS OF GOING HOME. WAITING FOR MD ORDERS. PATIENT REFUSED TO PUT IT BACK THE TELE MONITOR, EDUCATE AND EXPLAINED THE BENEFITS OF HAVING TELE MONITOR X3. PATIENT STILL REFUSED. WILL CONTINUE TO MONITOR.
[2019-07-06] MEDS ORDERED: SEVELAMER CARBONATE 800 MG TABLET PO SCH (08:00)
[2019-07-06] MEDS ORDERED: CALCIUM ACETATE 667 MG TABLET PO SCH (08:00)
[2019-07-06 08:38] LABS: IRON, SERUM 56 ug/dl (50-175); TOTAL IRON BINDING CAPACITY 271 ug/dl (250-450)
[2019-07-06 08:39] VITALS: BP 190/110
[2019-07-06 08:48] LABS: FERRITIN 958 ng/mL (8-388)
[2019-07-06] MEDS ORDERED: CARVEDILOL 12.5 MG TABLET PO SCH (09:00)
[2019-07-06] MEDS ORDERED: ASPIRIN EC 81 MG TABLET.DR PO SCH (09:00)
[2019-07-06] MEDS ORDERED: TOPIRAMATE 100 MG TABLET PO SCH (09:00)
[2019-07-06] MEDS ORDERED: LOSARTAN POTASSIUM 25 MG TABLET PO SCH (09:00)
[2019-07-06] MEDS ORDERED: hydrALAZINE HCL 50 MG TABLET PO SCH (09:00)
[2019-07-06] MEDS ORDERED: GABAPENTIN 100 MG CAPSULE PO SCH (09:00)
[2019-07-06] MEDS ORDERED: QUETIAPINE FUMARATE 100 MG TABLET PO SCH ×2 (09:00→22:00)
[2019-07-06] MEDS ORDERED: CITALOPRAM HYDROBROMIDE 20 MG TABLET PO SCH (09:00)
[2019-07-06] MEDS ORDERED: APIXABAN 5 MG TABLET PO SCH (09:00)
--- NOTE | 2019-07-06 09:48 | NUR ---
MS/RN NOTES THE PATIENT IS ALERT AND ORIENTED X4. DENIES PAIN AT THIS TIME. IN ROOM AIR AND SATURATION IS AT 98%. RESPIRATION REGULAR AND UNLABORED. THE PATIENT IN NO APPARENT DISTRESS. ADMINISTERED MORNING MEDICATION ORDER. THE PATIENT VERBALIZED WANTING TO LEAVE AMA. ACCORDING TO THE PATIENT WANTS TO LEAVE THE HOSPITAL AMA BECAUSE SHE WANT TO SEE HER PRIMARY PHYSICIAN. THE PATIENT WAS GIVEN RISKS AND BENEFITS, HOWEVER THE PATIENT INSISTED TO LEAVE AMA. THE PATIENT LEFT THE HOSPITAL BY HERSELF. MD IS AWARE.
[2019-07-06] MEDS ORDERED: NIFEdipine XL (30MG) 30 MG TAB PO SCH (21:00)
[2019-09-30] MEDS ORDERED: LOSA25TA27 PO (09:58)
[2019-10-08] MEDS ORDERED: ISOS20TA8 PO (09:19)
[2019-10-08] MEDS ORDERED: HYDR-4077 PO (09:19)
== END 2019-07-06 10:10 | disposition left against medical advice (07) | DRG 194 ==
LOC: ER 00:12 → TELE 03:23 → MED 10:01
PROVIDERS: ADMIT Nurse Practitioner Acute Care; ATTEND Nurse Practitioner Acute Care
DX: I13.2 Hypertensive heart and chronic kidney disease with heart failure and with stage 5 chronic kidney disease, or end stage renal disease (principal); N18.6 End stage renal disease; I27.20 Pulmonary hypertension, unspecified; E44.1 Mild protein-calorie malnutrition; E87.5 Hyperkalemia; Z79.01 Long term (current) use of anticoagulants; G40.909 Epilepsy, unspecified, not intractable, without status epilepticus; G51.0 Bell's palsy; Z59.0 Homelessness; D63.8 Anemia in other chronic diseases classified elsewhere; E66.9 Obesity, unspecified; E78.5 Hyperlipidemia, unspecified; G43.909 Migraine, unspecified, not intractable, without status migrainosus; G89.4 Chronic pain syndrome; I16.0 Hypertensive urgency; J45.909 Unspecified asthma, uncomplicated; K21.9 Gastro-esophageal reflux disease without esophagitis; Z68.33 Body mass index [BMI] 33.0-33.9, adult; Z86.711 Personal history of pulmonary embolism; Z79.899 Other long term (current) drug therapy; Z86.718 Personal history of other venous thrombosis and embolism; Z86.73 Personal history of transient ischemic attack (TIA), and cerebral infarction without residual deficits; Z90.49 Acquired absence of other specified parts of digestive tract; Z91.19 Patient's noncompliance with other medical treatment and regimen; Z99.2 Dependence on renal dialysis; I70.0 Atherosclerosis of aorta; D24.2 Benign neoplasm of left breast; D24.1 Benign neoplasm of right breast; I50.30 Unspecified diastolic (congestive) heart failure
CPT/HCPCS: 36415; 71045-TC; 80048-TC; 82728-TC; 83540-TC; 83880; 84484-TC; 85025-TC; 87081-TC; G0378; J0360

== ENCOUNTER 2019-07-13 01:50 | Emergency (ER) | payer MEDICAID ==
[~2019-07-13] VITALS: Ht 157.5 cm; Wt 88.5 kg
--- NOTE | 2019-07-13 02:29 | NUR ---
PT CAME TO ER BED 9 C/O MID STERNAL CHEST PAIN. PT STATE THAT SHE MISSED DIALYISIS YESTERDAY. SHE HAS BEEN HAVING CHEST PAIN EVERSINCE. AAOX4. NO SOB. BREATHING EVENLY AND UNLABORED. CONNECTED TO MORTGAGE LOAN OFFICER.
[2019-07-13] MEDS ORDERED: FUROSEMIDE 40 MG/4 ML VIAL ONE (02:39)
[2019-07-13] MEDS ORDERED: NITROGLYCERIN 0.4 MG/TAB BOTTLE ONE (02:40)
[2019-07-13 02:42] LABS: EOSINOPHILS % (AUTO) 4.9 % (0.0-6.0); HEMATOCRIT 22 % (33-45); HEMOGLOBIN 7.2 g/dL (11.5-14.8); LYMPHOCYTES # (AUTO) 0.5 /CMM (0.8-4.8); LYMPHOCYTES % (AUTO) 10.8 % (20.0-44.0); MEAN CORPUSCULAR HGB CONC 32 g/dl (31.0-36.0); MEAN CORPUSCULAR VOLUME 100 fL (82-100); MONOCYTES # (AUTO) 0.5 /CMM (0.1-1.30); NEUTROPHILS # (AUTO) 3.4 /CMM (1.8-8.9); NEUTROPHILS % (AUTO) 72.3 % (43.0-81.0); PLATELET COUNT (AUTO) 117 /CMM (150-450); RED BLOOD CELL COUNT(AUTO) 2.22 MIL/uL (4.0-5.2); WHITE BLOOD COUNT (AUTO) 4.7 K/uL (4.3-11.0)
[2019-07-13 02:49] LABS: CALCIUM, SERUM 7.5 mg/dL (8.5-10.1); POTASSIUM 5.5 mmol/L (3.5-5.1)
[2019-07-13 02:52] LABS: CREATININE 13.5 mg/dL (0.6-1.3)
--- NOTE | 2019-07-13 02:59 | NUR ---
INSPECTOR DIALS AT BEDSIDE FOR BLOOD DRAW
[2019-07-13] MEDS ORDERED: NITROGLYCERIN 0.4 MG/TAB BOTTLE SL ONE (03:00)
[2019-07-13] MEDS ORDERED: FUROSEMIDE 40 MG/4 ML VIAL IV ONE (03:00)
[2019-07-13 03:04] LABS: BILIRUBIN,DIRECT 0.1 mg/dL (0.0-0.2); BILIRUBIN,TOTAL 0.4 mg/dL (0.2-1.0)
[2019-07-13 03:05] LABS: ALBUMIN 3.7 g/dL (3.4-5.0)
[2019-07-13] MEDS ORDERED: hydrALAZINE HCL IV 20 MG VIAL ONE (03:57)
[2019-07-13] MEDS ORDERED: hydrALAZINE HCL IV 20 MG VIAL IV ONE (04:00)
[2019-07-13 04:03] VITALS: BP 213/166
--- NOTE | 2019-07-13 04:22 | NUR ---
Patient does not wish to proceed with medical care recommended by Dr. Womack. Patient given information related to possible complications, up to and including , which could occur as a result of leaving the hospital at this time. Patient verbalizes understanding of risks involved due to leaving against medical advice. Patient has signed AMA form.
[2019-09-30] MEDS ORDERED: LOSA25TA27 PO (09:58)
[2019-10-08] MEDS ORDERED: HYDR-4077 PO (09:19)
[2019-10-08] MEDS ORDERED: ISOS20TA8 PO (09:19)
== END 2019-07-13 04:29 | disposition left against medical advice (07) ==
LOC: ER 01:53
DX: I12.0 Hypertensive chronic kidney disease with stage 5 chronic kidney disease or end stage renal disease (principal); N18.6 End stage renal disease; D63.1 Anemia in chronic kidney disease; Z99.2 Dependence on renal dialysis; Z76.5 Malingerer [conscious simulation]; F32.9 Major depressive disorder, single episode, unspecified; G40.909 Epilepsy, unspecified, not intractable, without status epilepticus; Z98.890 Other specified postprocedural states; Z91.018 Allergy to other foods; Z79.899 Other long term (current) drug therapy; Z79.82 Long term (current) use of aspirin
CPT/HCPCS: 36415; 71045; 80048; 80076; 83880; 84484; 85025; 85730; 86850; 86921; 87081; 93005; 96374; 96375; 99284; J0360; J1940

== ENCOUNTER 2019-08-15 10:46 | Inpatient (IN) | payer MEDICAID ==
[~2019-08-15] VITALS: Ht 165.1 cm; Wt 100.2 kg
[2019-08-15] MEDS ORDERED: ONDANSETRON HCL/PF 4 MG/2 ML VIAL IVP ONE (11:00)
[2019-08-15] MEDS ORDERED: MORPHINE SULFATE INJ 2 MG/ML DISP.SYRIN IV ONE ×2 (11:00→12:30)
[2019-08-15] MEDS ORDERED: ONDANSETRON HCL/PF 4 MG/2 ML VIAL ONE (11:09)
[2019-08-15] MEDS ORDERED: MORPHINE SULFATE INJ 4 MG/ML DISP.SYRIN ONE ×2 (11:09→12:33)
--- NOTE | 2019-08-15 11:15 | NUR ---
DIFFUSE ABDOMINAL PAIN W/ N/V/D SINCE YESTERDAY. PATIENT STATES SHE MISSED HER DIALYSIS LAST THURSDAY. REPORTS PAIN LEVEL 10/10 AND ACHY. PT IS VISIBLY UNCOMFORTABLE, RUBBING SITE AND FACIAL GRIMACING. DENIES SOB, DIZZINESS, WEAKNESS. NO ACUTE DISTRESS NOTED. ON MONITOR, MADE COMFORTABLE, AND READY FOR EVAL.
--- NOTE | 2019-08-15 11:30 | NUR ---
IV ACCESS OBTAINED. MEDS GIVEN. PT ARNOL WELL. PT SIGNED WAIVER FOR RADIOLOGY.
--- NOTE | 2019-08-15 11:39 | NUR ---
PATIENT TAKEN TO RADIOLOGY VIA GURNEY
[2019-08-15 11:45] LABS: BASOPHILS % (AUTO) 0.2 % (0.0-2.0); EOSINOPHILS % (AUTO) 3.9 % (0.0-6.0); HEMATOCRIT 23 % (33-45); HEMOGLOBIN 7.6 g/dL (11.5-14.8); LYMPHOCYTES # (AUTO) 0.4 /CMM (0.8-4.8); LYMPHOCYTES % (AUTO) 10.5 % (20.0-44.0); MEAN CORPUSCULAR HGB CONC 33 g/dl (31.0-36.0); MEAN CORPUSCULAR VOLUME 100 fL (82-100); MONOCYTES # (AUTO) 0.5 /CMM (0.1-1.30); NEUTROPHILS # (AUTO) 3.1 /CMM (1.8-8.9); NEUTROPHILS % (AUTO) 74.4 % (43.0-81.0); PLATELET COUNT (AUTO) 112 /CMM (150-450); WHITE BLOOD COUNT (AUTO) 4.2 K/uL (4.3-11.0)
[2019-08-15 11:58] LABS: ALBUMIN 3.3 g/dL (3.4-5.0); BILIRUBIN,DIRECT 0.1 mg/dL (0.0-0.2); BILIRUBIN,TOTAL 0.3 mg/dL (0.2-1.0); CALCIUM, SERUM 7.2 mg/dL (8.5-10.1); TOTAL PROTEIN, SERUM 6.7 g/dL (6.4-8.2)
[2019-08-15 12:01] LABS: CREATININE 11.6 mg/dL (0.6-1.3); POTASSIUM 6.2 mmol/L (3.5-5.1)
--- NOTE | 2019-08-15 12:25 | NUR ---
PT REPORTS INCREASE IN PAIN. MD NOTIFIED
[2019-08-15] MEDS ORDERED: SODIUM POLYSTYRENE SULF. PWD 15 GM UDC PO ONE (12:30)
[2019-08-15] MEDS ORDERED: SODIUM POLYSTYRENE SULFONATE 15 G/60 ML BOTTLE ONE (12:33)
--- NOTE | 2019-08-15 12:51 | NUR ---
CALLED NURSING SUP.
--- NOTE | 2019-08-15 12:51 | NUR ---
[facility]ED [facility].
--- NOTE | 2019-08-15 13:20 | NUR ---
NURSING SUP GAVE TELE BED 328-1.
--- NOTE | 2019-08-15 13:49 | NUR ---
REPORT GIVEN TO YENIFER RICHARD FOR 328-1 T
[2019-08-15] MEDS ORDERED: MAG HYDROX/AL HYDROX/SIMETH 30 ML UDC PO PRN (14:00)
[2019-08-15] MEDS ORDERED: DEXTROSE 50%-WATER 50 ML DISP.SYRIN IV PRN (14:00)
[2019-08-15] MEDS ORDERED: ONDANSETRON HCL/PF 4 MG/2 ML VIAL IVP PRN (14:00)
[2019-08-15] MEDS ORDERED: MAGNESIUM HYDROXIDE 30 ML UDC PO PRN (14:00)
[2019-08-15] MEDS ORDERED: INSULIN REGULAR, HUMAN 100 UNIT/ML 3 ML VIAL SQ PRN (14:00)
[2019-08-15] MEDS ORDERED: Z GUARD REMEDY 2 OZ OINT TP PRN (14:00)
--- NOTE | 2019-08-15 14:21 | NUR ---
PT TRANSFERRED TO UNIT PER ACLS PROTOCOL [facility]
--- NOTE | 2019-08-15 14:25 | NUR ---
DISK SHARPENER NOTES PATIENT ADMITTED TO UNIT, ORIENTED PATIENT TO ROOM, UNIT AND CALL LIGHT. ON TELE MONITORING SR: 82. NO SOB. ON ROOM AIR WITH SPO2 100%. PER ER REPORT PATIENT'S CURRENT BP 213/127 AND WAS EVEN HIGHER EARLIER. KISHAN LIMITED RADIOLOGY TECHNICIAN AWARE OF HIGH BP, AWAITING H FOR HD TX. LEFT ARM AV FISTULA WITH + BRUIT/THRILL. PATIENT REFUSED SKIN ASSESSMENT. OBSERVED PATIENT PICKS AT OWN SKIN ON GENERALIZED BODY WITH VISIBLE OPEN AREAS TO UPPER AND LOWER BODY AND ANTERIOR AND POSTERIOR ASPECT OF BODY. PATIENT ALSO REFUSED TO HAVE PICTURES TAKEN. PATIENT AMBULATORY WITH STEADY GAIT. PATIENT STILL C/O ABDOMINAL PAIN, BUT UPON INTERVIEW NOTED PATIENT DOZING OFF AND WHEN AWOKEN TO COMPLETE INTERVIEW, PATIENT SAW PRIMARY NURSE AND STARTED C/O PAIN AGAIN. BED IN LOWEST POSITION, LOCKED. BED ALARM ON. CALL LIGHT WITHIN REACH.
[2019-08-15] MEDS: oxyCODONE IR immediate release 5 MG PO PRN ×2 (14:54→22:07)
--- NOTE | 2019-08-15 14:59 | NUR ---
WOOD BORER NOTES PATIENT STATES, "I'M NOT ALLERGIC TO HYDROCODONE EXCEPT FOR BANANA AND SHELLFISH AND SEAFOOD WHICH MAKES MY THROAT ITCHY, CLOSES THROAT, MAKES EYES SWOLLEN AND VANCOMYCIN MAKES ME NAUSEOUS." PATIENT STATED SHE HAS TAKEN HYDROCODONE IN THE PAST AND STATED IT DOES NOT WORK.
[2019-08-15] MEDS: hydrALAZINE HCL IV 20 MG VIAL IV PRN (15:56)
[2019-08-15 16:00] VITALS: BP 202/130
--- NOTE | 2019-08-15 16:27 | NUR ---
PROPERTY WORKER NOTES NO REACTION NOTED FROM OXY, NO SWELLING, NO RASH/HIVES, NO SOB, NO OTHER S/S OF DISCOMFORT NOR DISTRESS.
[2019-08-15] MEDS ORDERED: diphenhydrAMINE HCL 25 MG CAPSULE PO PRN (16:30)
[2019-08-15] MEDS: BLOOD SUGAR DIAGNOSTIC 1 EACH STRIP IN SCH ×2 (16:37→22:15)
[2019-08-15] MEDS ORDERED: TOPIRAMATE 100 MG TABLET PO SCH (17:00)
[2019-08-15] MEDS ORDERED: hydrALAZINE HCL 50 MG TABLET PO SCH (17:00)
[2019-08-15] MEDS ORDERED: CARVEDILOL 25 MG TABLET PO SCH (17:00)
[2019-08-15] MEDS ORDERED: GABAPENTIN 100 MG CAPSULE PO SCH (17:00)
[2019-08-15] MEDS ORDERED: APIXABAN 2.5 MG TABLET PO SCH (17:00)
[2019-08-15] MEDS ORDERED: SEVELAMER CARBONATE 800 MG TABLET PO SCH (18:00)
[2019-08-15] MEDS ORDERED: CALCIUM ACETATE 667 MG TABLET PO SCH (18:00)
[2019-08-15] MEDS ORDERED: diphenhydrAMINE HCL 50 MG/ML VIAL IV PRN (18:00)
--- NOTE | 2019-08-15 19:46 | NUR ---
SOCIAL INSURANCE SPECIALIST NOTES PATIENT STILL RECEIVING HD TX. ENDORSED TO ONCOMING NURSE. IV ACCES TO RT EJ INTACT AND PATENT. BED IN LOWEST POSITION, LOCKED. BED ALARM ON. IN NO APPARENT DISTRESS. CALL LIGHT WITHIN REACH. ABLE TO VERBALIZE NEEDS.
[2019-08-15 20:00] VITALS: BP 199/110
--- NOTE | 2019-08-15 20:15 | NUR ---
MS/RN PATIENT APPEAR SLEEPING AT THIS TIME, APPEAR COMFORTABLE, NO SIGNS OF DISTRESS NOTED, HD IN PROGRESS. WILL MONITOR.
[2019-08-15] MEDS ORDERED: NIFEdipine XL 60 MG TAB PO SCH (21:00)
--- NOTE | 2019-08-15 21:37 | NUR ---
MS/RN PER PATIENT THE OXY IR IS NOT HELPING HER ABDOMINAL PAIN. CALLED [facility], LEFT LEFT MESSAGE.
[2019-08-15 21:48] VITALS: BP 199/110
--- NOTE | 2019-08-15 22:43 | NUR ---
MS/RN DR. STEIN CALLED BACK, NO NEW ORDER WAS RECEIVED FOR PAIN MEDICATION. INFORMED THE PATIENT, PER PATIENT IF SHE CAN NOT HAVE MORPHINE IV SHE WILL GO AMA, CHARGE NURSE LEANDRO MADE AWARE AND SHE TALKED TO THE PATIENT, PER MALLET CUTTERYENIFER REEVES PATIENT WANTS AT LEAST BENADRYL IV AND SHE WILL STAY, PLACED A CALL AGAIN TO [facility] AND CALLED BACK AND INFORMED HIM IF HE CAN ORDER BENADRYL IV, NO ORDER WAS RECEIVED, INFORMED PATIENT THAT NO BENADRYL ORDER WAS RECEIVED, EXPLAINED TO THE PATIENT THE RISK OF GOING AMA, PATIENT VERBALIZED UNDERSTANDING AND DECIDED TO STAY. WILL MONITOR.
--- NOTE | 2019-08-15 22:52 | NUR ---
MS/RN ACCU CHECK BLOOD SUGAR AT 2155 WAS 77, ENCOURAGED PATIENT TO EAT HER DINNER.
[2019-08-16] VITALS: BP 183/111
[2019-08-16] MEDS: hydrALAZINE HCL IV 20 MG VIAL IV PRN ×2 (00:49→04:21)
--- NOTE | 2019-08-16 01:04 | NUR ---
BP 183/111, PATIENT IS ASYMPTOMATIC,APRESOLINE 10 MG IV WAS GIVEN ORDERED, WILL MONITOR.
--- NOTE | 2019-08-16 01:17 | NUR ---
MS/RN PATIENT C/O OF MIGRAINE HEADACHE, CALLED [facility], LEFT MESSAGE.
--- NOTE | 2019-08-16 01:25 | NUR ---
MS/RN DR. STEIN CALLED BACK WITH ORDER OF TYLENOL 650 MG PO X1.
[2019-08-16] MEDS ORDERED: ACETAMINOPHEN 325 MG TABLET PO ONE (01:30)
--- NOTE | 2019-08-16 01:46 | NUR ---
MS/RN PER PATIENT SHE IS NOT ALLERGIC TO TYLENOL. TYLENOL 650 MG PO WAS GIVEN FOR HEADACHE. WILL MONITOR.
[2019-08-16 04:00] VITALS: BP 181/105
[2019-08-16 04:21] VITALS: BP 181/105
--- NOTE | 2019-08-16 06:30 | NUR ---
MS/RN PATIENT AWAKE, ALERT, COMFORTABLE, NO CHANGE IN CONDITION. ALL NEEDS ATTENDED AT THIS TIME,WILL CONTINUE TO MONITOR.
[2019-08-16 06:34] LABS: EOSINOPHILS % (AUTO) 5.2 % (0.0-6.0); HEMATOCRIT 24 % (33-45); HEMOGLOBIN 7.8 g/dL (11.5-14.8); LYMPHOCYTES # (AUTO) 0.4 /CMM (0.8-4.8); LYMPHOCYTES % (AUTO) 9.4 % (20.0-44.0); MEAN CORPUSCULAR HGB CONC 33 g/dl (31.0-36.0); MEAN CORPUSCULAR VOLUME 100 fL (82-100); MONOCYTES # (AUTO) 0.6 /CMM (0.1-1.30); MONOCYTES % (AUTO) 14.2 % (2.0-12.0); NEUTROPHILS # (AUTO) 3.1 /CMM (1.8-8.9); NEUTROPHILS % (AUTO) 70.2 % (43.0-81.0); PLATELET COUNT (AUTO) 120 /CMM (150-450); RED BLOOD CELL COUNT(AUTO) 2.35 MIL/uL (4.0-5.2); WHITE BLOOD COUNT (AUTO) 4.4 K/uL (4.3-11.0)
[2019-08-16] MEDS: BLOOD SUGAR DIAGNOSTIC 1 EACH STRIP IN SCH (06:43)
[2019-08-16 06:47] LABS: CALCIUM, SERUM 8.4 mg/dL (8.5-10.1); MAGNESIUM 2.1 mg/dL (1.8-2.4); PHOSPHORUS 5.8 mg/dL (2.5-4.9); POTASSIUM 4.6 mmol/L (3.5-5.1)
[2019-08-16 06:48] LABS: CREATININE 9.4 mg/dL (0.6-1.3)
[2019-08-16 06:50] LABS: THYROID STIMULATING HORMONE 5.688 uIU/mL (0.358-3.74)
--- NOTE | 2019-08-16 07:45 | NUR ---
Patient awake and a/o x4 . Breathing unlabored and even on room air, VS at baseline. Patient denies pain or any discomfort. Patient attempted to leave the Hospital AMA during last night. Patient willing to leave AMA right now. Education provided, risks explained. Patient verbalized understanding but still refusing to stay. Patient reported homelessness but refused resources and placement and sighed homeless waiver form. AMA form sighed . Hospitalist Dr. Ernesto Azevedo. informed. IV line removed with no complications. ID wrist band removed. Patient refused D/C instructions and left without paperwork.
[2019-08-16] MEDS ORDERED: CITALOPRAM HYDROBROMIDE 20 MG TABLET PO SCH (09:00)
[2019-08-16] MEDS ORDERED: LOSARTAN POTASSIUM 25 MG TABLET PO SCH (09:00)
[2019-08-16] MEDS ORDERED: ASPIRIN EC 81 MG TABLET.DR PO SCH (09:00)
== END 2019-08-16 09:30 | disposition left against medical advice (07) | DRG 194 ==
LOC: ER 10:49 → TELE 13:51
PROVIDERS: ADMIT Nurse Practitioner Acute Care; ATTEND Nurse Practitioner Acute Care
PROC: 5A1D70Z Performance of Urinary Filtration, Intermittent, Less than 6 Hours Per Day (ICD-10-PCS; principal; 2019-08-15)
DX: I13.2 Hypertensive heart and chronic kidney disease with heart failure and with stage 5 chronic kidney disease, or end stage renal disease (principal); I21.A1 Myocardial infarction type 2; D61.818 Other pancytopenia; R18.8 Other ascites; I27.20 Pulmonary hypertension, unspecified; N18.6 End stage renal disease; E87.5 Hyperkalemia; Z79.01 Long term (current) use of anticoagulants; G40.909 Epilepsy, unspecified, not intractable, without status epilepticus; I16.0 Hypertensive urgency; I50.33 Acute on chronic diastolic (congestive) heart failure; E78.5 Hyperlipidemia, unspecified; K21.9 Gastro-esophageal reflux disease without esophagitis; J45.909 Unspecified asthma, uncomplicated; D63.1 Anemia in chronic kidney disease; Z99.2 Dependence on renal dialysis; J98.11 Atelectasis; Z86.718 Personal history of other venous thrombosis and embolism; Z86.711 Personal history of pulmonary embolism; Z91.19 Patient's noncompliance with other medical treatment and regimen; Z86.73 Personal history of transient ischemic attack (TIA), and cerebral infarction without residual deficits; G89.4 Chronic pain syndrome; Q78.9 Osteochondrodysplasia, unspecified; G43.909 Migraine, unspecified, not intractable, without status migrainosus; F41.9 Anxiety disorder, unspecified; F32.9 Major depressive disorder, single episode, unspecified
CPT/HCPCS: 36415; 71045-TC; 80048-TC; 80061-TC; 80076-TC; 82962-TC; 83690-TC; 83735-TC; 84100-TC; 84443-TC; 84484-TC; 85025-TC; 86706; 87081-TC; 87340; 90935-TC; G0378; J0360; J1200; J1815; J2270; J2405; J7030; Q0163

== ENCOUNTER 2019-09-19 06:53 | Inpatient (IN) | payer MEDICAID ==
[~2019-09-19] VITALS: Ht 165.1 cm; Wt 95.7 kg
--- NOTE | 2019-09-19 07:30 | NUR ---
"Facial Swelling/itch/numb started this am" Patient a/ox4, breathing even and unlabored, no sob noted, needs attended, kept comfortable. changed into gown, attached to the surveillance monitor.
[2019-09-19 07:59] LABS: BASOPHILS % (AUTO) 0.9 % (0.0-2.0); EOSINOPHILS % (AUTO) 4.6 % (0.0-6.0); HEMATOCRIT 25 % (33-45); HEMOGLOBIN 8.2 g/dL (11.5-14.8); LYMPHOCYTES # (AUTO) 0.5 /CMM (0.8-4.8); MEAN CORPUSCULAR HGB CONC 33 g/dl (31.0-36.0); MEAN CORPUSCULAR VOLUME 101 fL (82-100); MONOCYTES # (AUTO) 0.5 /CMM (0.1-1.30); MONOCYTES % (AUTO) 11.1 % (2.0-12.0); NEUTROPHILS # (AUTO) 3.6 /CMM (1.8-8.9); NEUTROPHILS % (AUTO) 72.4 % (43.0-81.0); PLATELET COUNT (AUTO) 170 /CMM (150-450); RED BLOOD CELL COUNT(AUTO) 2.51 MIL/uL (4.0-5.2); WHITE BLOOD COUNT (AUTO) 4.9 K/uL (4.3-11.0)
[2019-09-19 08:18] LABS: ALANINE AMINOTRANSFERASE 39 U/L (12-78); ALBUMIN 3.4 g/dL (3.4-5.0); ALKALINE PHOSPHATASE 100 U/L (46-116); ASPARTATE AMINOTRANSFERASE 55 U/L (15-37); BILIRUBIN,DIRECT 0.1 mg/dL (0.0-0.2); BILIRUBIN,TOTAL 0.3 mg/dL (0.2-1.0); CALCIUM, SERUM 7.5 mg/dL (8.5-10.1); CARBON DIOXIDE 26 mmol/L (21-32); CHLORIDE 101 mmol/L (98-107); GLUCOSE 96 mg/dL (74-106); POTASSIUM 5.6 mmol/L (3.5-5.1); SODIUM SERUM 138 mmol/L (136-145); TOTAL PROTEIN, SERUM 7.4 g/dL (6.4-8.2)
[2019-09-19 08:20] LABS: CREATININE 11.8 mg/dL (0.6-1.3); UREA NITROGEN, BLOOD 100 mg/dL (7-18)
--- NOTE | 2019-09-19 08:31 | NUR ---
CALLED [facility] FOR CONSULT.
--- NOTE | 2019-09-19 08:58 | NUR ---
CALLED NURSING SUP FOR TELE BED.
[2019-09-19] MEDS ORDERED: hydrALAZINE HCL IV 20 MG VIAL ONE (10:43)
--- NOTE | 2019-09-19 10:47 | NUR ---
NURSING SUP GAVE TELE BED 315-2.
[2019-09-19] MEDS ORDERED: hydrALAZINE HCL IV 20 MG VIAL IV ONE (11:00)
[2019-09-19] MEDS ORDERED: LORAZEPAM 1 MG TABLET ONE (11:08)
--- NOTE | 2019-09-19 11:08 | NUR ---
REPORT GIVEN TO [address]
[2019-09-19] MEDS ORDERED: LORAZEPAM 1 MG TABLET PO PRN (11:30)
[2019-09-19 11:40] VITALS: BP 197/68
[2019-09-19 11:45] VITALS: BP 197/68
--- NOTE | 2019-09-19 11:59 | NUR ---
PATIENT TRANSFERRED TO ROOM 315-1 VIA ACLS PROTOCOL. PATIENT A/OX4, BREATHING EVEN AND UNLABORED, NO SOB NOTED. ENDORSED TO [address].
--- NOTE | 2019-09-19 12:00 | NUR ---
tele russian language instructor: admission admitted this 33 year old female pt from [facility] with dx: esrd, hyperkalemia, and fluid overload. pt able to ambulate to the room. pt refuse to lay down, pt in so much pain as stated. left message to dr. salas (admitting md). oriented to room and surroundings. place pt on tele sr=80's. afebrile. pt refused skin assessment. pt wearing her own pants with gown on top. instructed to call for assistance. will continue to monitor.
--- NOTE | 2019-09-19 12:38 | NUR ---
tele aerospace engineer officer armament: notes pt request for benadry with hd. dr. jimenez notified and received order to give benadryl 50mg with hd prn. order read back and carried out.
--- NOTE | 2019-09-19 12:45 | NUR ---
tele account manager employee benefits: notes hd nurse here and preparing pt for hd tx.
[2019-09-19] MEDS: diphenhydrAMINE HCL 50 MG/ML VIAL IV PRN (12:55)
--- NOTE | 2019-09-19 12:55 | NUR ---
tele trade recruiter: notes lunch ordered. benadryl 50mg vial pulled and handed to hd nurse (nat) and she will administer med with hd tx. order verified with hd nurse.
[2019-09-19] MEDS ORDERED: Z GUARD REMEDY 2 OZ OINT TP PRN (13:00)
[2019-09-19] MEDS ORDERED: MAGNESIUM HYDROXIDE 30 ML UDC PO PRN (13:00)
[2019-09-19] MEDS ORDERED: ACETAMINOPHEN 325 MG TABLET PO PRN (13:00)
[2019-09-19] MEDS ORDERED: MAG HYDROX/AL HYDROX/SIMETH 30 ML UDC PO PRN (13:00)
[2019-09-19] MEDS ORDERED: ZOLPIDEM TARTRATE 5 MG TABLET PO PRN (13:00)
[2019-09-19] MEDS ORDERED: ONDANSETRON HCL/PF 4 MG/2 ML VIAL IVP PRN (13:00)
--- NOTE | 2019-09-19 13:00 | NUR ---
tele tower technician: notes pt having lunch, no s/s of discomfort noted. call light within reach.
--- NOTE | 2019-09-19 14:50 | NUR ---
tele campaign fundraiser: notes hd still in progress. needs attended. call light within reach. voiced no discomfort.
[2019-09-19] MEDS ORDERED: hydrALAZINE HCL IV 20 MG VIAL IV PRN (15:00)
[2019-09-19] MEDS: hydrALAZINE HCL 50 MG TABLET PO SCH (15:49)
--- NOTE | 2019-09-19 15:49 | NUR ---
tele pvc monitor: notes hd in progress and b/p 203/106. hydralazine 50mg po given at this time due to elevated b/p and per hd nurse. will continue to monitor.
[2019-09-19 16:00] VITALS: BP 203/106
[2019-09-19 16:45] VITALS: BP 122/104
--- NOTE | 2019-09-19 16:45 | NUR ---
tele edger feeder: notes hd completed with 3 liter uf. b/p 122/104. will continue to monitor.
--- NOTE | 2019-09-19 16:55 | NUR ---
tele nursing administrator: notes new iv line inserted to right upper arm, gauge#20 by rn x 1 attempt.l
[2019-09-19] MEDS ORDERED: hydrALAZINE HCL 50 MG TABLET PO SCH (17:00)
[2019-09-19] MEDS: MORPHINE SULFATE INJ 2 MG/ML DISP.SYRIN IV PRN ×2 (17:03→21:05)
--- NOTE | 2019-09-19 17:03 | NUR ---
tele main galley scullion: notes c/o 02/22 abdominal pain, medicated with morphine 2mg ivp by rn. dinner served. instructed to call for assistance. will continue to monitor.
[2019-09-19] MEDS: APIXABAN 5 MG TABLET PO SCH (17:05)
[2019-09-19] MEDS: QUETIAPINE FUMARATE 100 MG TABLET PO SCH ×2 (17:05→22:15)
[2019-09-19] MEDS: GABAPENTIN 100 MG CAPSULE PO SCH (17:05)
[2019-09-19] MEDS: TOPIRAMATE 100 MG TABLET PO SCH (17:05)
[2019-09-19] MEDS: CALCIUM ACETATE 667 MG TABLET PO SCH (17:06)
[2019-09-19] MEDS: SEVELAMER CARBONATE 800 MG TABLET PO SCH (17:06)
--- NOTE | 2019-09-19 17:33 | NUR ---
tele manager product design: notes verbalized relief of pain. still having her dinner. instructed to call for assistance.
--- NOTE | 2019-09-19 18:39 | NUR ---
tele final dressing cutter: notes resting comfortable in bed. no distress noted. needs attended. will continue to monitor.
--- NOTE | 2019-09-19 19:20 | NUR ---
tele track worker: notes bedside report given to lorena miles) for continuity of care.
--- NOTE | 2019-09-19 19:30 | NUR ---
TELE/RN ADMITTING NOTES: RECEIVED PT. IN BED AWAKE. A/OX4. VERBALLY RESPONSIVE AND ABLE TO MAKE NEEDS KNOWN. NO SOB NOTED. NO COMPLAINS OF PAIN OR DISCOMFORT AT THIS TIME. BREATHING EVEN AND UNLABORED. IV SITE LOCATED ON THE KATERIN, AND SALBADOR #20G. SL. INTACT AND PATENT. BRP, SKIN IS INTACT. ON TELE MONITORING WITH READING OF SR WITH PVC. SAFETY MEASURES ARE IN PLACE. BED IN LOW, LOCKED POSITION WITH SR UP X2. CALL LIGHT WITHIN REACH. WILL CONTINUE MONITORING ACCORDINGLY. Addendum: 09/19/19 at 8469 by GROVER TRONCOSO RN *TELE/RN OPENING NOTES
[2019-09-19] MEDS: NIFEdipine XL (30MG) 30 MG TAB PO SCH (20:25)
[2019-09-19] MEDS: CARVEDILOL 12.5 MG TABLET PO SCH (20:26)
[2019-09-19 20:38] VITALS: BP 179/105
--- NOTE | 2019-09-19 21:00 | NUR ---
TELE/RN NOTES: PATIENT REFUSED HYDRALAZINE IV. STATES HER BP IS ALWAYS HIGH. EXPLAINED RISKS AND BENEFITS. STILL REFUSED. WILL CONTINUE TO MONITOR.
--- NOTE | 2019-09-19 21:05 | NUR ---
TELE/RN NOTES: PT. COMPLAINED OF LEVEL 9 PAIN ON HER ABDOMEN. REQUESTED FOR PAIN MEDS, ADMINISTERED MORPHINE 2MG IV PUSH. VS STABLE. WILL CONTINUE MONITORING ACCORDINGLY.
[2019-09-19] MEDS ORDERED: diphenhydrAMINE HCL 50 MG CAPSULE PO ONE (23:00)
--- NOTE | 2019-09-19 23:09 | NUR ---
TELE/RN NOTES: PATIENT COMPLAINED OF ITCHINESS ON HER FACE. NO REDNESS NOTED. REGISTERED VASCULAR TECHNOLOGIST (RVT) HIGINIO MAY MADE AWARE, ORDERED 50MG BENADRYL PO. ADMINISTERED. TOLERATED WELL. WILL CONTINUE TO MONITOR PT. ACCORDINGLY.
[2019-09-20] VITALS (8 sets, daily range): BP systolic 145–195; BP diastolic 68–97
--- NOTE | 2019-09-20 01:30 | NUR ---
TELE/RN NOTES: PATIENT REFUSED HYDRALAZINE IV. IN STABLE CONDITION. NO COMPLAINS OF PAIN OR DISCOMFORT AT THIS TIME. STATES HER BP IS ALWAYS HIGH. EXPLAINED RISKS AND BENEFITS. STILL REFUSED. WILL CONTINUE TO MONITOR.
[2019-09-20 03:08] LABS: BASOPHILS % (AUTO) 1.4 % (0.0-2.0); EOSINOPHILS % (AUTO) 7.6 % (0.0-6.0); HEMATOCRIT 22 % (33-45); HEMOGLOBIN 7.3 g/dL (11.5-14.8); LYMPHOCYTES # (AUTO) 0.7 /CMM (0.8-4.8); MEAN CORPUSCULAR HGB CONC 33 g/dl (31.0-36.0); MEAN CORPUSCULAR VOLUME 100 fL (82-100); MONOCYTES # (AUTO) 0.5 /CMM (0.1-1.30); MONOCYTES % (AUTO) 15.1 % (2.0-12.0); NEUTROPHILS # (AUTO) 2.1 /CMM (1.8-8.9); NEUTROPHILS % (AUTO) 57.9 % (43.0-81.0); PLATELET COUNT (AUTO) 123 /CMM (150-450); RED BLOOD CELL COUNT(AUTO) 2.22 MIL/uL (4.0-5.2); WHITE BLOOD COUNT (AUTO) 3.6 K/uL (4.3-11.0)
[2019-09-20] MEDS: MORPHINE SULFATE INJ 2 MG/ML DISP.SYRIN IV PRN ×3 (03:45→12:35)
--- NOTE | 2019-09-20 03:45 | NUR ---
TELE/RN NOTES: PT. COMPLAINED OF LEVEL 9 PAIN ON HER ABDOMEN. REQUESTED FOR PAIN MEDS, ADMINISTERED MORPHINE 2MG IV PUSH. VS STABLE. WILL CONTINUE MONITORING ACCORDINGLY.
[2019-09-20 03:51] LABS: CALCIUM, SERUM 7.9 mg/dL (8.5-10.1); MAGNESIUM 2.1 mg/dL (1.8-2.4); PHOSPHORUS 5.4 mg/dL (2.5-4.9); POTASSIUM 5.4 mmol/L (3.5-5.1)
[2019-09-20 04:01] LABS: CREATININE 9.8 mg/dL (0.6-1.3)
[2019-09-20 04:02] LABS: THYROID STIMULATING HORMONE 4.739 uIU/mL (0.358-3.74)
[2019-09-20 04:21] LABS: EOSINOPHILS % (MANUAL) 6 % (0-4); LYMPHOCYTES % (MANUAL) 17 % (16-48); MONOCYTES % (MANUAL) 11 % (0-11.0); NEUTROPHILS % (MANUAL) 66 (42-76)
--- NOTE | 2019-09-20 07:28 | NUR ---
TELE/RN CLOSING NOTES: PT. IN BED AWAKE. REMAINS A/OX4. VERBALLY RESPONSIVE AND ABLE TO MAKE NEEDS KNOWN. NO SOB NOTED. NO COMPLAINS OF PAIN OR DISCOMFORT AT THIS TIME. BREATHING EVEN AND UNLABORED. NO SIGNIFICANT CHANGES IN CONDITION. SAFETY MEASURES ARE IN PLACE. BED IN LOW, LOCKED POSITION WITH SR UP X2. CALL LIGHT WITHIN REACH. WILL ENDORSE TO DAY SHIFT FOR FRANSICO.
[2019-09-20] MEDS: CALCIUM ACETATE 667 MG TABLET PO SCH ×3 (08:00→17:17)
[2019-09-20] MEDS: PANTOPRAZOLE 40 MG TABLET.DR PO SCH (08:00)
[2019-09-20] MEDS: SEVELAMER CARBONATE 800 MG TABLET PO SCH ×3 (08:00→17:17)
[2019-09-20] MEDS: QUETIAPINE FUMARATE 100 MG TABLET PO SCH ×3 (08:03→21:07)
[2019-09-20] MEDS: NIFEdipine XL (30MG) 30 MG TAB PO SCH ×2 (08:04→20:32)
[2019-09-20] MEDS: TOPIRAMATE 100 MG TABLET PO SCH ×2 (08:04→16:24)
[2019-09-20] MEDS: ASPIRIN EC 81 MG TABLET.DR PO SCH (08:04)
[2019-09-20] MEDS: hydrALAZINE HCL 50 MG TABLET PO SCH ×2 (08:04→16:24)
[2019-09-20] MEDS: LOSARTAN POTASSIUM 25 MG TABLET PO SCH (08:04)
[2019-09-20] MEDS: CARVEDILOL 12.5 MG TABLET PO SCH ×2 (08:05→20:31)
[2019-09-20] MEDS: CITALOPRAM HYDROBROMIDE 20 MG TABLET PO SCH (08:05)
[2019-09-20] MEDS: GABAPENTIN 100 MG CAPSULE PO SCH ×3 (08:05→16:23)
[2019-09-20] MEDS: APIXABAN 5 MG TABLET PO SCH ×2 (08:12→16:25)
--- NOTE | 2019-09-20 12:31 | NUR ---
bedside HD finished. Patient is stable , with VS at baseline. Output 3000ml.
--- NOTE | 2019-09-20 18:32 | NUR ---
patient resting in room, ambulatory and a/o x4. Breathing unlabored and even on room air, tolerating well. All needs attended. Patient kept comfortable. IV line remains intact and patent H/L. Safety precautions in place, call light within reach. Will endorse to next shift for FRANSICO
--- NOTE | 2019-09-20 19:49 | NUR ---
GENETICS TEACHER NOTES PATIENT IN BED, ASLEEP, ALERT AND ORIENTED X 4. BREATHING EVEN AND UNLABORED ON ROOM AIR. SHOWS NO SIGNS OF ACUTE RESPIRATORY DISTRESS, NO ACUTE PAIN. KATERIN HD FISTULA IS CLEAN DRY AND INTACT. IV ON SALBADOR 20G SL IS CLEAN DRY AND INTACT. SHOWS NO SIGNS OF INFILTRATION, NO REDNESS. SAFETY PRECAUTIONS IN PLACE. BED IN LOWEST POSITION, LOCKED, AND CALL LIGHT KEPT WITHIN REACH. WILL CONTINUE TO MONITOR.
[2019-09-20] MEDS: MUPIROCIN OINT 2% 22 GM TUBE SCH (20:44)
[2019-09-21] VITALS: BP 145/68
[2019-09-21 04:00] VITALS: BP 141/76
--- NOTE | 2019-09-21 06:45 | NUR ---
TOOTH CUTTER CONTACT WHEEL NOTES PATIENT IN BED, ASLEEP, ALERT AND ORIENTED X 4. BREATHING EVEN AND UNLABORED ON ROOM AIR. SHOWS NO SIGNS OF ACUTE RESPIRATORY DISTRESS, NO ACUTE PAIN. TELE MONITOR SR WITH PVC 79 HR. KATERIN HD FISTULA IS CLEAN DRY AND INTACT. IV ON SALBADOR 20G SL IS CLEAN DRY AND INTACT. SHOWS NO SIGNS OF INFILTRATION, NO REDNESS. ALL DUE MEDICATIONS GIVEN. SAFETY PRECAUTIONS IN PLACE. BED IN LOWEST POSITION, LOCKED, AND CALL LIGHT KEPT WITHIN REACH. WILL ENDORSE TO ONCOMING NURSE.
[2019-09-21 07:00] LABS: CALCIUM, SERUM 7.5 mg/dL (8.5-10.1); POTASSIUM 4.9 mmol/L (3.5-5.1)
[2019-09-21 07:05] LABS: CREATININE 9.2 mg/dL (0.6-1.3)
[2019-09-21 07:06] LABS: BASOPHILS % (AUTO) 0.8 % (0.0-2.0); EOSINOPHILS % (AUTO) 8.5 % (0.0-6.0); HEMATOCRIT 23 % (33-45); HEMOGLOBIN 7.4 g/dL (11.5-14.8); LYMPHOCYTES # (AUTO) 0.6 /CMM (0.8-4.8); MEAN CORPUSCULAR HGB CONC 33 g/dl (31.0-36.0); MEAN CORPUSCULAR VOLUME 100 fL (82-100); MONOCYTES # (AUTO) 0.5 /CMM (0.1-1.30); MONOCYTES % (AUTO) 13.6 % (2.0-12.0); NEUTROPHILS # (AUTO) 2.5 /CMM (1.8-8.9); NEUTROPHILS % (AUTO) 63.1 % (43.0-81.0); PLATELET COUNT (AUTO) 139 /CMM (150-450); RED BLOOD CELL COUNT(AUTO) 2.27 MIL/uL (4.0-5.2)
[2019-09-21 08:00] VITALS: BP 136/83
--- NOTE | 2019-09-21 08:00 | NUR ---
MS RN- OPENING NOTES Received patient from night clerk nurse in bed, awake, conscious, coherent and cooperative. IV access on SALBADOR 20g, no infiltration and redness noted, with bandage and tape on right forearm no signs of bleeding, no signs of respiratory distress, breathing in room air.
[2019-09-21] MEDS: CITALOPRAM HYDROBROMIDE 20 MG TABLET PO SCH (09:44)
[2019-09-21] MEDS: CARVEDILOL 12.5 MG TABLET PO SCH ×2 (09:44→21:05)
[2019-09-21] MEDS: NIFEdipine XL (30MG) 30 MG TAB PO SCH ×2 (09:45→21:04)
[2019-09-21] MEDS: ASPIRIN EC 81 MG TABLET.DR PO SCH (09:45)
[2019-09-21] MEDS: CALCIUM ACETATE 667 MG TABLET PO SCH ×3 (09:45→17:43)
[2019-09-21] MEDS: SEVELAMER CARBONATE 800 MG TABLET PO SCH ×3 (09:45→17:42)
[2019-09-21] MEDS: GABAPENTIN 100 MG CAPSULE PO SCH ×3 (09:46→16:25)
[2019-09-21] MEDS: PANTOPRAZOLE 40 MG TABLET.DR PO SCH (09:46)
[2019-09-21] MEDS: LOSARTAN POTASSIUM 25 MG TABLET PO SCH (09:46)
[2019-09-21] MEDS: TOPIRAMATE 100 MG TABLET PO SCH ×2 (09:46→16:24)
[2019-09-21] MEDS: hydrALAZINE HCL 50 MG TABLET PO SCH ×2 (09:47→16:24)
[2019-09-21] MEDS: APIXABAN 5 MG TABLET PO SCH ×2 (09:48→16:27)
[2019-09-21] MEDS: QUETIAPINE FUMARATE 100 MG TABLET PO SCH ×3 (09:49→21:04)
[2019-09-21] MEDS: HYDROCODONE/APAP 5/325MG 1 EACH TABLET PO PRN ×2 (10:11→17:57)
[2019-09-21] MEDS: MUPIROCIN OINT 2% 22 GM TUBE SCH ×2 (10:12→21:00)
[2019-09-21 16:00] VITALS: BP 151/70
--- NOTE | 2019-09-21 18:58 | NUR ---
MS RN- CLOSING NOTES Endorsed patient to health equipment servicer nurse in bed, awake, consciuos and coopertaive. With IVF access at right upper arm, no redness and infiltration noted, skin is intact, Left upper arm HD fistula, no bleeding or redness noted. Due meds given accordingly.
--- NOTE | 2019-09-21 19:44 | NUR ---
PROFESSIONAL ARCHITECT OPENING NOTES PATIENT RESTING IN BED COMFORTABLY; AWAKE, A/OX4; BREATHING EVEN AND UNLABORED; NO SOB OR ACUTE RESPIRATORY DISTRESS NOTED; PATIENT TOLERATING ROOM AIR WELL; TELE MONITOR READS SR 78 HR; SALBADOR #20 SL INTACT AND PATENT; FLUSHING WELL, NO S/S OF REDNESS OR INFILTRATION NOTED; PATIENT CURRENTLY RECEIVING DIALYSIS; DIALYSIS NURSE AT BEDSIDE; SAFETY PRECAUTIONS IN PLACE; BED LOCKED IN LOW POSITION; SIDE RAILS X2; CALL LIGHT WITHIN REACH; WILL CONTINUE TO MONITOR
[2019-09-21 20:00] VITALS: BP 141/80
[2019-09-21] MEDS: diphenhydrAMINE HCL 50 MG/ML VIAL IV PRN (20:31)
--- NOTE | 2019-09-21 20:57 | NUR ---
BUTTON PUNCHER NOTES SALBADOR #20 NOT INTACT; IV TIP STILL INTACT; IV SITE WAS BLEEDING; WRAPPED WITH KERLIX; WILL CONTINUE TO MONITOR;
--- NOTE | 2019-09-21 21:05 | NUR ---
TELEHEALTH NURSE NOTES PATIENT REFUSING IV ACCESS; PATIENT WAS EDUCATED ON IMPORTANCE OF COMPLIANCE THROUGHOUT HOSPITALIZATION; PATIENT STILL REFUSING; WILL CONTINUE TO MONITOR
--- NOTE | 2019-09-21 23:30 | NUR ---
SHOE STAMPER NOTES HD COMPLETED; PATIENT TOLERATED PROCEDURE WELL; VITALS STABLE: BP: 148/78 P: 69 TEMP: 98.2 RR: 18; 3L OUT; WILL CONTINUE TO MONITOR
[2019-09-22] VITALS: BP 140/77
[2019-09-22 04:00] VITALS: BP 140/69
--- NOTE | 2019-09-22 06:32 | NUR ---
TREATING INSPECTOR CLOSING NOTES PATIENT SLEEPING IN BED COMFORTABLY; HOB ELEVATED; BREATHING EVEN AND UNLABORED; NO S/S OF SOB OR ACUTE RESPIRATORY DISTRESS NOTED; PATIENT TOLERATING ROOM AIR WELL; TELE MONITOR READS SINUS RHYTHM WITH 83HR; KATERIN HD FISTULA INTACT; ALL NEEDS RENDERED; SAFETY PRECAUTIONS IN PLACE; BED LOCKED IN LOW POSITION; CALL LIGHT WITHIN EASY REACH; WILL ENDORSE FRANSICO TO ONCOMING SHIFT
[2019-09-22 07:57] VITALS: BP 156/76
--- NOTE | 2019-09-22 08:20 | NUR ---
FREIGHT CHECKER NOTES PATIENT AWAKE IN BED, NO RESPIRATORY DISTRESS, NO C/O PAIN AT THIS TIME. ROLL CLAMP OPERATOR ON READING SR 80. SKIN WARM TO TOUCH, IV ACCESS SITE INTACT AND PATENT. HD FISTULA ON THE KATERIN INTACT. PATIENT'S NEEDS ATTENDED, BED ON LOWEST LOCKED POSITION, CALL LIGHT WITHIN REACH. WILL CONTINUE TO MONITOR.
[2019-09-22] MEDS: SEVELAMER CARBONATE 800 MG TABLET PO SCH ×2 (08:30→12:47)
[2019-09-22] MEDS: QUETIAPINE FUMARATE 100 MG TABLET PO SCH ×2 (08:30→16:57)
[2019-09-22] MEDS: PANTOPRAZOLE 40 MG TABLET.DR PO SCH (08:30)
[2019-09-22] MEDS: CALCIUM ACETATE 667 MG TABLET PO SCH ×2 (08:30→12:47)
[2019-09-22] MEDS: ASPIRIN EC 81 MG TABLET.DR PO SCH (08:30)
[2019-09-22] MEDS: TOPIRAMATE 100 MG TABLET PO SCH ×2 (08:30→16:57)
[2019-09-22] MEDS: CITALOPRAM HYDROBROMIDE 20 MG TABLET PO SCH (08:30)
[2019-09-22] MEDS: hydrALAZINE HCL 50 MG TABLET PO SCH ×2 (08:31→17:00)
[2019-09-22] MEDS: LOSARTAN POTASSIUM 25 MG TABLET PO SCH (08:31)
[2019-09-22] MEDS: NIFEdipine XL (30MG) 30 MG TAB PO SCH (08:32)
[2019-09-22] MEDS: GABAPENTIN 100 MG CAPSULE PO SCH ×3 (08:35→16:57)
[2019-09-22] MEDS: APIXABAN 5 MG TABLET PO SCH ×2 (08:36→16:57)
[2019-09-22] MEDS: MUPIROCIN OINT 2% 22 GM TUBE SCH (08:37)
[2019-09-22] MEDS: CARVEDILOL 12.5 MG TABLET PO SCH (08:41)
[2019-09-22] MEDS: HYDROCODONE/APAP 5/325MG 1 EACH TABLET PO PRN (10:47)
[2019-09-22 12:00] VITALS: BP 145/84
[2019-09-22 17:00] VITALS: BP 134/79
--- NOTE | 2019-09-22 17:20 | NUR ---
HOSPICE ADMITTING CLERK NOTES PATIENT DISCHARGED IN STABLE CONDITION, VSS. NO RESPIRATORY DISTRESS, NO C/O PAIN AT THIS TIME. SKIN WARM TO TOUCH, SKIN ASSESSED NO SKIN BREAKDOWN. IV REMOVED APPLIED PRESSURE DRESSING. PATIENT'S BELONGINGS ACCOUNTED FOR AND SIGNED. PATIENT ESCORTED TO LOBBY, AMBULATORY WITH STEADY GAIT, ALERT AND ORIENTED X3, TAP CARD PROVIDED.
== END 2019-09-22 17:30 | disposition home or self-care (01) | DRG 199 ==
LOC: ER 06:54 → TELE 10:49
PROVIDERS: ADMIT Student in an Organized Health Care Education/Training Program
PROC: 5A1D70Z Performance of Urinary Filtration, Intermittent, Less than 6 Hours Per Day (ICD-10-PCS; principal; 2019-09-19)
DX: I16.0 Hypertensive urgency (principal); D68.69 Other thrombophilia; I27.20 Pulmonary hypertension, unspecified; I50.32 Chronic diastolic (congestive) heart failure; N18.6 End stage renal disease; E87.5 Hyperkalemia; I13.2 Hypertensive heart and chronic kidney disease with heart failure and with stage 5 chronic kidney disease, or end stage renal disease; Z79.01 Long term (current) use of anticoagulants; K21.9 Gastro-esophageal reflux disease without esophagitis; D63.8 Anemia in other chronic diseases classified elsewhere; E78.5 Hyperlipidemia, unspecified; G89.4 Chronic pain syndrome; G43.909 Migraine, unspecified, not intractable, without status migrainosus; Z86.711 Personal history of pulmonary embolism; Z86.718 Personal history of other venous thrombosis and embolism; Z86.73 Personal history of transient ischemic attack (TIA), and cerebral infarction without residual deficits; Z99.2 Dependence on renal dialysis; J45.909 Unspecified asthma, uncomplicated; G40.909 Epilepsy, unspecified, not intractable, without status epilepticus; N25.0 Renal osteodystrophy; Z91.15 Patient's noncompliance with renal dialysis; J98.11 Atelectasis
CPT/HCPCS: 36415; 71045-TC; 80048-TC; 80061-TC; 80076-TC; 83735-TC; 84100-TC; 84443-TC; 84484-TC; 84702-TC; 85025-TC; 86706; 87081-TC; 87340; 90935-TC; A6403; G0378; J0360; J1200; J2270; Q0163

== ENCOUNTER 2019-09-26 13:21 | Inpatient (IN) | payer MEDICAID ==
[2019-09-26] VITALS (18 sets, daily range): BP systolic 136–186; BP diastolic 77–130
[~2019-09-26] VITALS: Ht 165.1 cm; Wt 90.7 kg
--- NOTE | 2019-09-26 13:35 | NUR ---
PT SELF PRESENTS TO ED AMBULATORY TO ER BED 03 C/O DIFFUSE ABDOMINAL PAIN W/ N/V/D THAT STARTED THIS MORNING. PT IS A DIALYSIS PT. HYPERTENSIVE RAIL SIGNAL DESIGNER STATES SHE WAS NOT ABLE TO TAKE HER HYPERTENSIVE MEDICATION. PLACED ON MONITOR. AWAITING MD ROOT.
--- NOTE | 2019-09-26 14:30 | NUR ---
DR JORGENSEN AT BEDSIDE FOR EVAL.
[2019-09-26] MEDS ORDERED: ONDANSETRON HCL/PF 4 MG/2 ML VIAL ONE (14:59)
[2019-09-26] MEDS ORDERED: MORPHINE SULFATE INJ 4 MG/ML DISP.SYRIN ONE ×2 (14:59→16:29)
[2019-09-26] MEDS ORDERED: MORPHINE SULFATE INJ 2 MG/ML DISP.SYRIN IV ONE ×2 (15:00→16:30)
[2019-09-26] MEDS ORDERED: NTG 50 MG/D5W250 ML BOTTL 250 ML IV PRN ×2 (15:00→22:30)
[2019-09-26] MEDS ORDERED: ONDANSETRON HCL/PF - ER 4 MG/2 ML VIAL IV ONE (15:00)
--- NOTE | 2019-09-26 15:00 | NUR ---
PT UNABLE TO PROVIDE URINE SAMPLE AT THIS TIME. STATES URINATED BEFORE COMING TO ED.
--- NOTE | 2019-09-26 15:06 | NUR ---
U/S TECH AT BEDSIDE FOR GALLBLADDER ULTRASOUND.
[2019-09-26 15:19] LABS: BASOPHILS # (AUTO) 0.1 /CMM (0.0-0.2); BASOPHILS % (AUTO) 1.1 % (0.0-2.0); EOSINOPHILS % (AUTO) 3.3 % (0.0-6.0); HEMATOCRIT 24 % (33-45); HEMOGLOBIN 7.8 g/dL (11.5-14.8); LYMPHOCYTES # (AUTO) 0.4 /CMM (0.8-4.8); LYMPHOCYTES % (AUTO) 8.9 % (20.0-44.0); MEAN CORPUSCULAR HGB CONC 32 g/dl (31.0-36.0); MEAN CORPUSCULAR VOLUME 102 fL (82-100); MONOCYTES # (AUTO) 0.5 /CMM (0.1-1.30); MONOCYTES % (AUTO) 10.1 % (2.0-12.0); NEUTROPHILS # (AUTO) 3.7 /CMM (1.8-8.9); NEUTROPHILS % (AUTO) 76.6 % (43.0-81.0); PLATELET COUNT (AUTO) 137 /CMM (150-450); RED BLOOD CELL COUNT(AUTO) 2.36 MIL/uL (4.0-5.2); WHITE BLOOD COUNT (AUTO) 4.8 K/uL (4.3-11.0)
[2019-09-26 15:34] LABS: ALBUMIN 3.5 g/dL (3.4-5.0); BILIRUBIN,DIRECT 0.1 mg/dL (0.0-0.2); BILIRUBIN,TOTAL 0.3 mg/dL (0.2-1.0); CALCIUM, SERUM 8.1 mg/dL (8.5-10.1); TOTAL PROTEIN, SERUM 7.7 g/dL (6.4-8.2)
--- NOTE | 2019-09-26 15:34 | NUR ---
NITRO DRIP TITRATED TO EFFECT.
--- NOTE | 2019-09-26 15:39 | NUR ---
PT TO RADIOLOGY FOR ABDOMINAL CT SCAN VIA [facility].
[2019-09-26 15:41] LABS: POTASSIUM 6.5 mmol/L (3.5-5.1)
[2019-09-26 15:42] LABS: CREATININE 10.2 mg/dL (0.6-1.3)
--- NOTE | 2019-09-26 15:55 | NUR ---
PAGED [facility].
[2019-09-26] MEDS ORDERED: INSULIN REGULAR, HUMAN 100 UNIT/ML 10 ML VIAL ONE (16:00)
[2019-09-26] MEDS ORDERED: SODIUM POLYSTYRENE SULFONATE 15 G/60 ML BOTTLE PO ONE (16:00)
[2019-09-26] MEDS ORDERED: DEXTROSE 50%-WATER 50 ML DISP.SYRIN IV ONE (16:00)
[2019-09-26] MEDS ORDERED: DEXTROSE 50%-WATER 50 ML DISP.SYRIN ONE (16:00)
[2019-09-26] MEDS ORDERED: INSULIN REGULAR, HUMAN 100 UNIT/ML 10 ML VIAL IV ONE (16:00)
[2019-09-26] MEDS ORDERED: Calcium Gluconate 0.465 MEQ/ML VIAL IV ONE (16:00)
[2019-09-26] MEDS ORDERED: ALBUTEROL FS 2.5 MG/3 ML VIAL.NEB NEB ONE (16:00)
[2019-09-26] MEDS ORDERED: Calcium Gluconate 1GM/10ML 4.65 MEQ in IV NS 0.9% 100 ML IV ONE (16:00)
--- NOTE | 2019-09-26 16:05 | NUR ---
CALLED NURSING SUP FOR ICU BED.
--- NOTE | 2019-09-26 16:14 | NUR ---
NURSING SUP GAVE ICU 256.
--- NOTE | 2019-09-26 16:18 | NUR ---
PAGED [facility].
[2019-09-26] MEDS ORDERED: ALBUTEROL FS 2.5 MG/3 ML VIAL.NEB ONE (16:23)
[2019-09-26] MEDS ORDERED: SODIUM POLYSTYRENE SULFONATE 15 G/60 ML BOTTLE ONE (16:31)
[2019-09-26] MEDS ORDERED: hydrALAZINE HCL IV 20 MG VIAL IV STA (16:42)
--- NOTE | 2019-09-26 16:47 | NUR ---
REPORT GIVEN TO ARCHANA Azevedo AT ICU. AWAITING TRANSFER TO FLOOR.
[2019-09-26 16:50] LABS: APPEARANCE,URINE Clear (CLEAR); BILIRUBIN,URINE Negative (NEGATIVE); BLOOD, URINE Trace-intact Ery/uL (NEGATIVE); COLOR,URINE Yellow (YELLOW); KETONES,URINE Negative (NEGATIVE); LEUKOCYTE ESTERASE ,URINE Negative (NEGATIVE); NITRITE, URINE Negative (NEGATIVE); PH,URINE 8.5 (5.0-8.0); PROTEIN,URINE >=300 mg/dl (NEGATIVE); UGLUCOSE 100 MG/DL mg/dL (NEGATIVE); UROBILINOGEN,URINE 0.2 EU/dL (0.2)
[2019-09-26] MEDS ORDERED: hydrALAZINE HCL IV 20 MG VIAL ONE (16:55)
[2019-09-26 17:00] LABS: BACTERIA,URINE None seen /HPF (None Seen); RBC,URINE 0-2 /HPF (0-2); SQUAMOUS EPITHELIAL CELL,UR Few /HPF (None Seen); WBC,URINE 0-2 /HPF (0-3); YEAST,URINE None Seen /HPF (None Seen)
[2019-09-26] MEDS ORDERED: CLONIDINE HCL 0.1 MG TABLET PO PRN (17:00)
[2019-09-26] MEDS ORDERED: MAGNESIUM HYDROXIDE 30 ML UDC PO PRN (17:00)
[2019-09-26] MEDS ORDERED: HYDROCODONE/APAP 5/325MG 1 EACH TABLET PO PRN (17:00)
[2019-09-26] MEDS ORDERED: ACETAMINOPHEN 325 MG TABLET PO PRN (17:00)
[2019-09-26] MEDS ORDERED: ONDANSETRON HCL/PF 4 MG/2 ML VIAL IVP PRN (17:00)
[2019-09-26] MEDS ORDERED: hydrALAZINE HCL IV 20 MG VIAL IV PRN (17:00)
[2019-09-26] MEDS ORDERED: MAG HYDROX/AL HYDROX/SIMETH 30 ML UDC PO PRN (17:00)
[2019-09-26] MEDS ORDERED: Z GUARD REMEDY 2 OZ OINT TP PRN (17:00)
--- NOTE | 2019-09-26 17:30 | NUR ---
RN OPENING NOTES RECEIVED PATIENT FROM ER, GOT REPORT FROM [address]. PATIENT TRANSFERRED VIA FELICITSA PT HAS UNSTABLE BP AND IS IN A LOT OF PAIN. BP ON ADMISSION WAS AT 190/110, HR IN THE 90S AND TEMPERATURE WAS 97.7. PATIENT PLACED ON TELE MONITOR AND VITAL SIGNS MONITORED EVERY 15 MIN VIA DATASCOPE. PATIENT CAME IN WITH NITROGLYCERIN DRIP RUNNING AT 100MCG/HR. WILL TITRATE ORDERED UNTIL ORDERED BP REACHED. UNABLE TO DO A FULL SKIN ASSESSMENT DUE TO PATIENTS CRITICAL CONDITION, PATIENT UNABLE TO MOVE IN BED AND IS REFUSING. CHARGE NURSE CHELSEY ASSISTED WITH ADMISSION. IV 20 GAUGE ON RJ INTACT PATENT AND FLUSHED WELL. PATIENT IS A DIALYSIS PATIENT AND IS SCHEDULED FOR DIALYSIS TODAY. WILL CONTINUE TO MONITOR CLOSELY, SAFETY MAINTAINED, ALL NEEDS ATTENDED, CALL LIGHT WITHIN REACH.
[2019-09-26] MEDS: CALCIUM ACETATE 667 MG TABLET PO SCH (17:59)
[2019-09-26] MEDS: SEVELAMER CARBONATE 800 MG TABLET PO SCH (17:59)
[2019-09-26] MEDS: NITROGLYCERIN 30 GM TUBE TOP SCH (17:59)
[2019-09-26] MEDS: QUETIAPINE FUMARATE 100 MG TABLET PO SCH ×2 (17:59→22:11)
[2019-09-26] MEDS: GABAPENTIN 100 MG CAPSULE PO SCH (17:59)
[2019-09-26] MEDS: CARVEDILOL 12.5 MG TABLET PO SCH (18:00)
[2019-09-26] MEDS: APIXABAN 5 MG TABLET PO SCH (18:01)
[2019-09-26] MEDS: TOPIRAMATE 100 MG TABLET PO SCH (18:04)
--- NOTE | 2019-09-26 19:42 | NUR ---
RN CLOSING NOTES PATIENT IS DOING SLIGHTLY BETTER AT THE MOMENT. BP IS MORE UNDER CONTROL WITH THE LATEST READING BEING 130/71, BEING MAINTAINED ORDERED. RUNNING NITRO DRIP AT 120MCG/MIN, TOLERATING WELL. SITTING UP IN BED AT THE MOMENT, FINISHED 100% OF TH DINNER, TOLERATED WELL, NO NAUSEA OR VOMITING PRESENT AT THE MOMENT. ADMISSION PACKED DONE, SPOKE TO DIALYSIS NURSE, WILL COME IN TONIGHT TO DIALYSE THE PATIENT. SAFETY WAS MAINTAINED, CALL LIGHT WITHIN REACH, ENDORSED TO PAIRER SUBSTANDARD NURSE TO CONTINUE CARE.
[2019-09-26] MEDS: MORPHINE SULFATE INJ 2 MG/ML DISP.SYRIN IV PRN (22:10)
[2019-09-26] MEDS: NIFEdipine XL (30MG) 30 MG TAB PO SCH (22:11)
[2019-09-26] MEDS ORDERED: NTG 50 MG/D5W250 ML BOTTL 250 ML IV ONE (22:33)
[2019-09-27] VITALS (34 sets, daily range): BP systolic 113–162; BP diastolic 51–101
--- NOTE | 2019-09-27 00:12 | NUR ---
ICU/RN DID NOT ADMINISTER NITRO PATCH SCHEDULED AT 0000 DUE TO PATIENT BEING ON NITRO DRIP. WILL CONTINUE TO MONITOR PATIENT.
[2019-09-27 04:51] LABS: BASOPHILS % (AUTO) 0.4 % (0.0-2.0); LYMPHOCYTES # (AUTO) 0.4 /CMM (0.8-4.8); LYMPHOCYTES % (AUTO) 8.1 % (20.0-44.0); MEAN CORPUSCULAR HGB CONC 33 g/dl (31.0-36.0); MEAN CORPUSCULAR VOLUME 101 fL (82-100); MONOCYTES # (AUTO) 0.6 /CMM (0.1-1.30); MONOCYTES % (AUTO) 11.8 % (2.0-12.0); NEUTROPHILS % (AUTO) 78.7 % (43.0-81.0); PLATELET COUNT (AUTO) 133 /CMM (150-450); RED BLOOD CELL COUNT(AUTO) 2.02 MIL/uL (4.0-5.2); WHITE BLOOD COUNT (AUTO) 5.1 K/uL (4.3-11.0)
[2019-09-27 04:53] LABS: CALCIUM, SERUM 8.2 mg/dL (8.5-10.1); MAGNESIUM 2.1 mg/dL (1.8-2.4); PHOSPHORUS 5.7 mg/dL (2.5-4.9); POTASSIUM 5.1 mmol/L (3.5-5.1)
[2019-09-27 04:54] LABS: CREATININE 8.9 mg/dL (0.6-1.3)
[2019-09-27 05:14] LABS: HEMOGLOBIN 6.6 g/dL (11.5-14.8)
[2019-09-27 05:15] LABS: HEMATOCRIT 20 % (33-45)
[2019-09-27 05:16] LABS: LYMPHOCYTES % (MANUAL) 6 % (16-48); MONOCYTES % (MANUAL) 6 % (0-11.0); NEUTROPHILS % (MANUAL) 88 (42-76)
[2019-09-27] MEDS: NITROGLYCERIN 30 GM TUBE TOP SCH ×5 (06:31→23:56)
--- NOTE | 2019-09-27 06:56 | NUR ---
ICU/RN CLOSING PATIENT IN BED IS A/O X4 WITH NO SIGN OF ANY DISTRESS. PATIENT IS ON 2L OF O2 ON NASAL CANNULA SATURATING AT 97%. PATIENT IN SR HR OF 93 ON BEDSIDE MONITOR. HAS A R JUGULAR IV #18 ON S/L PATENT AND FLUSHING. ALL SAFETY PRECAUTIONS HAVE BEEN APPLIED. ENDORSED PATIENT TO MORNING SHIFT NURSE FOR FRANSICO.
--- NOTE | 2019-09-27 07:29 | NUR ---
NETWORK LEAD OPENING NOTES RECEIVED PATIENT IN BED, AWAKE, A/O X4, COMPLAINS OF ABDOMINAL PAIN. PATIENT IS ON 2L OF O2 VIA NC, SATURATING WELL, NO SOB NOTED, O2 SAT AT 97%. SINUS RHYTHM ON THE MONITOR, OFF THE NITRO DRIP, TOLERATING FAIR, SYSTOLIC BP AT 160. IV ON RIGHT JUGULAR INTACT, PATENT, AND FLUSHED WELL. HEMOGLOBIN IS 6.6, MD IS AWARE, ORDERED 1 UNIT OF PRBC TO BE TRANSFUSED. ORDERED TYPE AND SCREEN AND WAITING ON BLOOD TO BE READY. HEMODIALYSIS WAS DONE LAST NIGHT, 2.5L WAS TAKEN OUT, PER PM NURSE, POSSIBLE HD TODAY. NO ORDER AT THE MOMENT. PATIENT IS CLEAN AND DRY, SAFETY MAINTAINED, CALL LIGHT WITHIN REACH, WILL CONTINUE TO MONITOR CLOSELY.
[2019-09-27] MEDS: MORPHINE SULFATE INJ 2 MG/ML DISP.SYRIN IV PRN ×3 (08:28→21:30)
[2019-09-27] MEDS: APIXABAN 5 MG TABLET PO SCH (08:44)
[2019-09-27] MEDS: SEVELAMER CARBONATE 800 MG TABLET PO SCH ×3 (08:46→17:25)
[2019-09-27] MEDS: CARVEDILOL 12.5 MG TABLET PO SCH ×2 (08:47→16:15)
[2019-09-27] MEDS: NIFEdipine XL (30MG) 30 MG TAB PO SCH ×2 (08:47→21:28)
[2019-09-27] MEDS: CITALOPRAM HYDROBROMIDE 20 MG TABLET PO SCH (08:48)
[2019-09-27] MEDS: QUETIAPINE FUMARATE 100 MG TABLET PO SCH ×3 (08:48→21:28)
[2019-09-27] MEDS: TOPIRAMATE 100 MG TABLET PO SCH ×2 (08:48→16:15)
[2019-09-27] MEDS: GABAPENTIN 100 MG CAPSULE PO SCH ×3 (08:48→16:15)
[2019-09-27] MEDS: CALCIUM ACETATE 667 MG TABLET PO SCH ×3 (08:48→17:25)
[2019-09-27] MEDS: LOSARTAN POTASSIUM 25 MG TABLET PO SCH ×2 (08:54→16:14)
[2019-09-27] MEDS: hydrALAZINE HCL 50 MG TABLET PO SCH ×2 (08:55→16:13)
[2019-09-27] MEDS ORDERED: LOSARTAN POTASSIUM 25 MG TABLET PO SCH (09:00)
[2019-09-27] MEDS ORDERED: ASPIRIN EC 81 MG TABLET.DR PO SCH (09:00)
--- NOTE | 2019-09-27 09:13 | NUR ---
PER DR COMER, OK TO TRANSFUSE 1 UNIT OF BLOOD WITH DIALYSIS, WILL ORDER DIALYSIS FOR TODAY. WILL CONTINUE TO MONITOR. SAFETY MAINTAINED, CALL LIGHT WITHIN REACH, WILL CONTINUE TO MONITOR CLOSELY.
--- NOTE | 2019-09-27 12:30 | NUR ---
RN NOTE 1 UNIT OF PACKED RBC ADMINISTERED WITH DIALYSIS. PATIENT TOLERATED WELL, NO SIGNS OF REACTION WERE NOTED. VITAL SIGNS WERE STABLE THROUGHOUT, DOCUMENTED ON TRANSFUSION SPREADSHEET. ALL PATIENTS NEEDS MET, KEPT CLEAN AND DRY, ALL MD ORDERS FOLLOWED.
--- NOTE | 2019-09-27 17:02 | NUR ---
RN NOTES TRANSFERRED PATIENT TO [facility], ROOM 316-1 FOLLOWED THE ACLS PROTOCOL. NO ACUTE DISTRESS NOTED. PATIENT IN STABLE CONDITION, ALL NEEDS WERE ATTENDED, KEPT CLEAN AND DRY. ENDORSED TO [address] FOR CONTINUITY OF CARE.
--- NOTE | 2019-09-27 18:32 | NUR ---
SOLAR WATER HEATER INSTALLER END OF SHIFT SUMMARY NOTE PT ARRIVED TO UNIT 1715 VIA GURNEY IN MEDICALLY STABLE CONDITION. PT IS A/O X3, AFEBRILE. PT APPEARS TO BE DROWSY, BUT ABLE TO AROUSE EASILY. ON TELE, NSR. ON 2L/MIN VIA NC SATURATING 95%. RESPIRATIONS ARE EVEN AND UNLABORED, NOT IN ANY ACUTE DISTRESS NOTED. DENIES ANY PAIN AT THIS TIME, NO C/O SOB, N/V. ABDOMEN IS DISTENDED, BOWEL SOUNDS ARE HYPOACTIVE. DENIES ANY BLADDER DISCOMFORT AND IS OLIGURIC. SKIN CDI. PIV TO RJ G20, INTACT. KATERIN AV SHUNT +BRUIT +THRILL. S/P DIALYSIS IN ICU W/ 2.5L OUT. SAFETY MEASURES ARE IN PLACE. INSTRUCTED PT TO USE CALL LIGHT WHEN ASSISTANCE IS NEEDED, ABLE TO PERFORM RETURN DEMONSTRATION. CALL LIGHT LEFT WITHIN REACH. WILL MONITOR AND CONTINUE POC.
--- NOTE | 2019-09-27 19:56 | NUR ---
PATTERN LEASE INSPECTOR NOTES PT IN BED, APPEARS TO BE VERY DROWSY, ALERT AND ORIENTED X 3-4. BREATHING EVEN AND UNLABORED ON 2L SHOWS NO SIGNS OF ACUTE RESPIRATORY DISTRESS, NO ACUTE PAIN. TELE MONITOR SR. IV ON RJ 20G ITS CLEAN DRY AND INTACT. SHOWS NO SIGNS OF INFILTRATION, NO REDNESS. SAFETY PRECAUTIONS IN PLACE. BED IN LOWEST POSITION, LOCKED, AND CALL LIGHT KEPT WITHIN REACH. WILL CONTINUE TO MONITOR.
[2019-09-28] VITALS: BP 137/69
[2019-09-28] MEDS: MORPHINE SULFATE INJ 2 MG/ML DISP.SYRIN IV PRN ×3 (03:56→12:10)
[2019-09-28 04:00] VITALS: BP 109/74
[2019-09-28] MEDS: NITROGLYCERIN 30 GM TUBE TOP SCH ×3 (06:18→17:36)
[2019-09-28 06:36] LABS: BASOPHILS % (AUTO) 0.8 % (0.0-2.0); EOSINOPHILS % (AUTO) 6.7 % (0.0-6.0); HEMATOCRIT 22 % (33-45); HEMOGLOBIN 7.4 g/dL (11.5-14.8); LYMPHOCYTES # (AUTO) 0.4 /CMM (0.8-4.8); LYMPHOCYTES % (AUTO) 11.4 % (20.0-44.0); MEAN CORPUSCULAR HGB CONC 33 g/dl (31.0-36.0); MEAN CORPUSCULAR VOLUME 100 fL (82-100); MONOCYTES # (AUTO) 0.6 /CMM (0.1-1.30); MONOCYTES % (AUTO) 15.6 % (2.0-12.0); NEUTROPHILS # (AUTO) 2.5 /CMM (1.8-8.9); NEUTROPHILS % (AUTO) 65.5 % (43.0-81.0); PLATELET COUNT (AUTO) 141 /CMM (150-450); RED BLOOD CELL COUNT(AUTO) 2.25 MIL/uL (4.0-5.2); WHITE BLOOD COUNT (AUTO) 3.8 K/uL (4.3-11.0)
--- NOTE | 2019-09-28 06:37 | NUR ---
SLOT FLOOR ATTENDANT NOTES PT IN BED, SLEPT THROUGHOUT NIGHT, ALERT AND ORIENTED X 3-4. BREATHING EVEN AND UNLABORED ON 2L SHOWS NO SIGNS OF ACUTE RESPIRATORY DISTRESS, NO ACUTE PAIN. TELE MONITOR SR. IV ON RJ 20G ITS CLEAN DRY AND INTACT. SHOWS NO SIGNS OF INFILTRATION, NO REDNESS. ALL DUE MEDICATIONS GIVEN. SAFETY PRECAUTIONS IN PLACE. BED IN LOWEST POSITION, LOCKED, AND CALL LIGHT KEPT WITHIN REACH. WILL ENDORSE TO ONCOMING NURSE.
[2019-09-28 06:52] LABS: CALCIUM, SERUM 7.7 mg/dL (8.5-10.1); POTASSIUM 4.9 mmol/L (3.5-5.1)
[2019-09-28 06:56] LABS: CREATININE 8.9 mg/dL (0.6-1.3)
[2019-09-28 08:00] VITALS: BP 134/66
[2019-09-28 08:09] LABS: EOSINOPHILS % (MANUAL) 7 % (0-4); LYMPHOCYTES % (MANUAL) 6 % (16-48); MONOCYTES % (MANUAL) 11 % (0-11.0); NEUTROPHILS % (MANUAL) 76 (42-76)
[2019-09-28] MEDS: CALCIUM ACETATE 667 MG TABLET PO SCH ×3 (08:13→17:35)
[2019-09-28] MEDS: QUETIAPINE FUMARATE 100 MG TABLET PO SCH ×2 (08:13→16:18)
[2019-09-28] MEDS: SEVELAMER CARBONATE 800 MG TABLET PO SCH ×3 (08:13→17:35)
[2019-09-28] MEDS: LOSARTAN POTASSIUM 25 MG TABLET PO SCH ×2 (08:14→16:18)
[2019-09-28] MEDS: NIFEdipine XL (30MG) 30 MG TAB PO SCH (08:14)
[2019-09-28] MEDS: CARVEDILOL 12.5 MG TABLET PO SCH ×2 (08:14→16:18)
[2019-09-28] MEDS: TOPIRAMATE 100 MG TABLET PO SCH ×2 (08:14→16:18)
[2019-09-28] MEDS: GABAPENTIN 100 MG CAPSULE PO SCH ×3 (08:14→16:18)
[2019-09-28] MEDS: CITALOPRAM HYDROBROMIDE 20 MG TABLET PO SCH (08:14)
[2019-09-28] MEDS: hydrALAZINE HCL 50 MG TABLET PO SCH ×2 (08:23→16:19)
[2019-09-28 16:00] VITALS: BP 150/84
--- NOTE | 2019-09-28 18:23 | NUR ---
PT IN BED, APPEARS TO BE VERY DROWSY, ALERT AND ORIENTED X 4. BREATHING EVEN AND UNLABORED ON ROOM AIR WITH NO SIGNS OF ACUTE RESPIRATORY DISTRESS, NO ACUTE PAIN AT THIS TIME. PRN PAIN MED ADMINISTRATED ORDERED PER PATIENT REQUEST FOR ABD PAIN 01/22. IV ON RJ 20G ITS CLEAN DRY AND INTACT. SHOWS NO SIGNS OF INFILTRATION, NO REDNESS. SAFETY PRECAUTIONS IN PLACE. BED IN LOWEST POSITION, LOCKED, AND CALL LIGHT WITHIN REACH. ALL NEEDS ATTENDED, PATIENT KEPT COMFORTABLE. HD SCHEDULED FOR TODAY 1900 PM. WILL ENDORSE TO NEXT SHIFT FOR FRANSICO.
[2019-09-28 20:00] VITALS: BP 133/63
--- NOTE | 2019-09-29 00:02 | NUR ---
MS/TELE/RN ON INITIAL ASSESSMENT AT 1930, PATIENT WAS LYING ON BED AWAKE, ALERT, ORIENTED, COMFORTABLE, NO C/O PAIN, NO DISTRESS NOTED, CALL LIGHT IN REACH. WILL MONITOR.
[2019-09-29] MEDS ORDERED: diphenhydrAMINE HCL 50 MG/ML VIAL IV PRN (00:30)
[2019-09-29] MEDS: MORPHINE SULFATE INJ 2 MG/ML DISP.SYRIN IV PRN ×4 (00:34→17:07)
[2019-09-29] MEDS: MUPIROCIN OINT 2% 22 GM TUBE SCH ×3 (00:39→21:57)
[2019-09-29] MEDS: NIFEdipine XL (30MG) 30 MG TAB PO SCH ×3 (00:39→21:44)
[2019-09-29] MEDS: QUETIAPINE FUMARATE 100 MG TABLET PO SCH ×4 (00:40→21:44)
--- NOTE | 2019-09-29 01:23 | NUR ---
MS/TELE/RN PATIENT IS SLEEPING AT THIS TIME, APPEAR COMFORTABLE, NO SIGNS OF DISTRESS NOTED, CALL LIGHT IN REACH, WILL CONTINUE TO MONITOR.
[2019-09-29 06:25] LABS: BASOPHILS % (AUTO) 0.9 % (0.0-2.0); EOSINOPHILS % (AUTO) 6.9 % (0.0-6.0); HEMATOCRIT 22 % (33-45); HEMOGLOBIN 7.2 g/dL (11.5-14.8); LYMPHOCYTES # (AUTO) 0.6 /CMM (0.8-4.8); LYMPHOCYTES % (AUTO) 17.6 % (20.0-44.0); MEAN CORPUSCULAR HGB CONC 33 g/dl (31.0-36.0); MEAN CORPUSCULAR VOLUME 99 fL (82-100); MONOCYTES # (AUTO) 0.7 /CMM (0.1-1.30); MONOCYTES % (AUTO) 19.9 % (2.0-12.0); NEUTROPHILS # (AUTO) 1.9 /CMM (1.8-8.9); NEUTROPHILS % (AUTO) 54.7 % (43.0-81.0); PLATELET COUNT (AUTO) 134 /CMM (150-450); RED BLOOD CELL COUNT(AUTO) 2.19 MIL/uL (4.0-5.2); WHITE BLOOD COUNT (AUTO) 3.4 K/uL (4.3-11.0)
[2019-09-29 06:55] LABS: CALCIUM, SERUM 7.8 mg/dL (8.5-10.1); POTASSIUM 4.6 mmol/L (3.5-5.1)
[2019-09-29] MEDS: NITROGLYCERIN 30 GM TUBE TOP SCH ×4 (07:01→18:00)
--- NOTE | 2019-09-29 07:04 | NUR ---
MS/TELE/RN PATIENT IS STILL SLEEPING, EASILY AROUSABLE, APPEAR COMFORTABLE, NO DISTRESS NOTED, ALL NEEDS ATTENDED AT THIS TIME, ENDORSED TO NEXT RN FOR FRANSICO.
--- NOTE | 2019-09-29 07:42 | NUR ---
RN OPENING NOTE: PT IN BED, APPEARS TO BE DROWSY; REPORTS SLEEPING WELL. ALERT AND ORIENTED X 4. BREATHING EVEN AND UNLABORED ON ROOM AIR WITH NO SIGNS OF ACUTE RESPIRATORY DISTRESS, C/O OF 9/10 PAIN IN ABDOMEN. PRN PAIN MED REQUESTED. IV ON RJ 20G IS CLEAN DRY AND INTACT. SAFETY PRECAUTIONS IN PLACE. BED IN LOWEST POSITION, LOCKED, AND CALL LIGHT WITHIN REACH. ALL NEEDS ATTENDED, PATIENT KEPT COMFORTABLE.
[2019-09-29 08:00] VITALS: BP 135/74
[2019-09-29] MEDS: SEVELAMER CARBONATE 800 MG TABLET PO SCH ×3 (08:35→17:07)
[2019-09-29] MEDS: LOSARTAN POTASSIUM 25 MG TABLET PO SCH ×2 (08:35→17:07)
[2019-09-29] MEDS: hydrALAZINE HCL 50 MG TABLET PO SCH ×2 (08:35→17:06)
[2019-09-29] MEDS: TOPIRAMATE 100 MG TABLET PO SCH ×2 (08:35→17:07)
[2019-09-29] MEDS: GABAPENTIN 100 MG CAPSULE PO SCH ×3 (08:35→17:07)
[2019-09-29] MEDS: CARVEDILOL 12.5 MG TABLET PO SCH ×2 (08:35→17:07)
[2019-09-29] MEDS: CALCIUM ACETATE 667 MG TABLET PO SCH ×3 (08:35→17:07)
[2019-09-29] MEDS: CITALOPRAM HYDROBROMIDE 20 MG TABLET PO SCH (08:36)
[2019-09-29 09:24] LABS: EOSINOPHILS % (MANUAL) 9 % (0-4); LYMPHOCYTES % (MANUAL) 15 % (16-48); MONOCYTES % (MANUAL) 12 % (0-11.0); NEUTROPHILS % (MANUAL) 64 (42-76)
[2019-09-29 16:00] VITALS: BP 140/68
--- NOTE | 2019-09-29 18:33 | NUR ---
RN CLOSING NOTE PATIENT IS SITTING UP IN BED. AOX4. AMBULATORY WITH STEADY GAIT. REJ 20 CLEAN, DRY AND INTACT. PAIN MANAGED WITH MORPHINE PRN ORDERED. NO BOWEL MOVEMENT TODAY.SAFETY PRECAUTIONS IN PLACE. BED LOCKED, LOW POSITION WITH 2 SIDE RAILS UP FOR SAFETY. CALL LIGHT WITHIN REACH.
--- NOTE | 2019-09-29 19:30 | NUR ---
MS RN OPENING NOTE RECEIVED PATIENT POSITIVE MRSA NARES. PATIENT IN BED. A/OX4. TOLERATING ROOM AIR. RESPIRATIONS ARE EVEN AND UNLABORED. NO S/S SOB NOTED. IN NO APPARENT DISTRESS. IV ACCESS IN RIJ#20 PATENT AND SALINE LOCKED. PATIENT ALSO HAS A LUE FISTULA, POSITIVE THRILL ARE BRUIT. BED IS LOW AND LOCKED, SIDE RIALS UP X2, HOB ELEVATED IN HIGH FOWLERS. CALL LIGHT WITHIN REACH. WILL CONTINUE TO MONITOR.
[2019-09-29 20:00] VITALS: BP 136/69
--- NOTE | 2019-09-29 20:30 | NUR ---
MS RN NOTE PLACED 2 HATS IN TOILET TO COLLECT URINE AND STOOL FOR SAMPLES FOR HCG, C.DIFF AND OB STOOL. WILL CHECK THROUGHOUT SHIFT PATIENT IS BRP. INFORMED PATIENT TO NOTIFY ME WHEN SHE GOES TO THE RESTROOM. WILL CONTINUE TO MONITOR.
[2019-09-30] MEDS: NITROGLYCERIN 30 GM TUBE TOP SCH ×4 (00:43→17:40)
[2019-09-30] MEDS: MORPHINE SULFATE INJ 2 MG/ML DISP.SYRIN IV PRN ×4 (00:49→15:20)
--- NOTE | 2019-09-30 00:49 | NUR ---
MS RN NOTE ADMINISTERED PRN MORPHINE 2MG FOR PAIN 8/10 IN ABDOMEN WILL CONTINUE TO MONITOR.
--- NOTE | 2019-09-30 05:30 | NUR ---
MS RN NOTE CALLED LAB TO NOTIFY THERE IS A SPECIMEN FOR LOCOMOTIVE DRIVER. URINE FOR HCG/ TESTING.
--- NOTE | 2019-09-30 05:37 | NUR ---
MS RN NOTE ADMINISTERED PRN MORPHINE 2MG FOR PAIN 8/10 IN ABDOMEN WILL CONTINUE TO MONITOR.
--- NOTE | 2019-09-30 06:53 | NUR ---
MS RN CLOSING NOTE PATIENT POSITIVE MRSA NARES. PATIENT REMAINS IN BED. A/OX4. TOLERATING ROOM AIR. RESPIRATIONS ARE EVEN AND UNLABORED. NO SOB NOTED. NO DISTRESS NOTED. IV ACCESS MAINTAINED IN RIJ#20, DRESSING CHANGED, PATENT AND SALINE LOCKED. PATIENT LUE FISTULA REMAINS POSITIVE THRILL ARE BRUIT. BED REMAINS LOW AND LOCKED, SIDE RIALS UP X2, HOB ELEVATED IN HIGH FOWLERS. CALL LIGHT WITHIN REACH. WILL ENDORSE TO NEXT SHIFT.
--- NOTE | 2019-09-30 08:00 | NUR ---
MS RN OPENING NOTES Received Patient asleep and resting in bed. A/O x 4. VS stable with no acute distress. Breathing even and unlabored on room air with no respiratory distress. No signs and symptoms of pain. 20g PIV on REJ clean, intact, patent and flushing well. LUE Fistula clean, intact and positive for bruit and thrill. Safety precautions in place. Bed locked and set to lowest position with side rails x 2 up. All needs rendered at this time. Call light within reach. Will continue to monitor.
[2019-09-30 08:45] VITALS: BP 136/74
[2019-09-30] MEDS: CALCIUM ACETATE 667 MG TABLET PO SCH ×3 (08:49→17:39)
[2019-09-30] MEDS: SEVELAMER CARBONATE 800 MG TABLET PO SCH ×3 (08:49→17:39)
[2019-09-30] MEDS: hydrALAZINE HCL 50 MG TABLET PO SCH ×2 (08:50→17:35)
[2019-09-30] MEDS: GABAPENTIN 100 MG CAPSULE PO SCH ×3 (08:50→17:39)
[2019-09-30] MEDS: NIFEdipine XL (30MG) 30 MG TAB PO SCH (08:50)
[2019-09-30] MEDS: LOSARTAN POTASSIUM 25 MG TABLET PO SCH ×2 (08:50→17:39)
[2019-09-30] MEDS: CARVEDILOL 12.5 MG TABLET PO SCH ×2 (08:50→17:38)
[2019-09-30] MEDS: CITALOPRAM HYDROBROMIDE 20 MG TABLET PO SCH (08:50)
[2019-09-30] MEDS: QUETIAPINE FUMARATE 100 MG TABLET PO SCH ×2 (08:51→17:39)
[2019-09-30] MEDS: TOPIRAMATE 100 MG TABLET PO SCH ×2 (08:51→17:39)
[2019-09-30] MEDS: MUPIROCIN OINT 2% 22 GM TUBE SCH (08:52)
[2019-09-30] MEDS ORDERED: LOSA25TA27 PO (09:58)
[2019-09-30 11:19] LABS: BASOPHILS % (AUTO) 0.4 % (0.0-2.0); EOSINOPHILS % (AUTO) 8.2 % (0.0-6.0); HEMATOCRIT 23 % (33-45); HEMOGLOBIN 7.3 g/dL (11.5-14.8); LYMPHOCYTES # (AUTO) 0.7 /CMM (0.8-4.8); LYMPHOCYTES % (AUTO) 18.2 % (20.0-44.0); MEAN CORPUSCULAR HGB CONC 32 g/dl (31.0-36.0); MEAN CORPUSCULAR VOLUME 100 fL (82-100); MONOCYTES # (AUTO) 0.7 /CMM (0.1-1.30); MONOCYTES % (AUTO) 17.2 % (2.0-12.0); NEUTROPHILS # (AUTO) 2.1 /CMM (1.8-8.9); PLATELET COUNT (AUTO) 136 /CMM (150-450); RED BLOOD CELL COUNT(AUTO) 2.27 MIL/uL (4.0-5.2); WHITE BLOOD COUNT (AUTO) 3.8 K/uL (4.3-11.0)
[2019-09-30] MEDS ORDERED: LIDOCAINE 1% INJ 50 ML MDV IJ ONE (11:30)
[2019-09-30 11:53] LABS: CALCIUM, SERUM 7.9 mg/dL (8.5-10.1); POTASSIUM 5.2 mmol/L (3.5-5.1)
[2019-09-30 12:00] LABS: CREATININE 8.6 mg/dL (0.6-1.3)
[2019-09-30 12:24] LABS: EOSINOPHILS % (MANUAL) 10 % (0-4); LYMPHOCYTES % (MANUAL) 18 % (16-48); NEUTROPHILS % (MANUAL) 61 (42-76); REACTIVE LYMPHOCYTES 11 % (0-0)
[2019-09-30 16:17] VITALS: BP 134/78
[2019-09-30 17:40] VITALS: BP 134/78
--- NOTE | 2019-09-30 18:47 | NUR ---
MS JUMPBASTING CANVAS BASTER NOTES Patient discharged for home at this time. Patient in stable condition. VS stable with no acute distress. Breathing even and unlabored on room air with no respiratory distress. Denies pain. No signs and symptoms of pain. Removed intact PIV on REJ. Skin intact. Medication reconciliation and discharge instructions reviewed and explained to Patient. Patient verbalized understanding. All belongings with Patient. Patient will follow up with PCP in 1-2 weeks and follow up with routine hemodialysis. Patient ambulatory. Provided TAP card for transportation. Escorted Patient to the Lobby for safety.
== END 2019-09-30 18:50 | disposition home or self-care (01) | DRG 199 ==
LOC: ER 13:26 → ICU 16:28 → TELE 09-27 16:59 → MED 09-28 08:26
PROVIDERS: ADMIT Internal Medicine; ATTEND Internal Medicine
PROC: 5A1D70Z Performance of Urinary Filtration, Intermittent, Less than 6 Hours Per Day (ICD-10-PCS; principal; 2019-09-26)
PROC: 30233N1 Transfusion of Nonautologous Red Blood Cells into Peripheral Vein, Percutaneous Approach (ICD-10-PCS; 2019-09-27)
DX: I16.1 Hypertensive emergency (principal); I50.33 Acute on chronic diastolic (congestive) heart failure; D68.59 Other primary thrombophilia; D69.6 Thrombocytopenia, unspecified; I27.20 Pulmonary hypertension, unspecified; N18.6 End stage renal disease; E87.5 Hyperkalemia; I13.2 Hypertensive heart and chronic kidney disease with heart failure and with stage 5 chronic kidney disease, or end stage renal disease; G40.909 Epilepsy, unspecified, not intractable, without status epilepticus; K21.9 Gastro-esophageal reflux disease without esophagitis; D63.8 Anemia in other chronic diseases classified elsewhere; Z99.2 Dependence on renal dialysis; G89.4 Chronic pain syndrome; E78.5 Hyperlipidemia, unspecified; Z86.69 Personal history of other diseases of the nervous system and sense organs; J45.909 Unspecified asthma, uncomplicated; Z79.899 Other long term (current) drug therapy; Z86.73 Personal history of transient ischemic attack (TIA), and cerebral infarction without residual deficits; F11.21 Opioid dependence, in remission; Z91.19 Patient's noncompliance with other medical treatment and regimen; Z86.59 Personal history of other mental and behavioral disorders; Z86.718 Personal history of other venous thrombosis and embolism; Z79.01 Long term (current) use of anticoagulants; Z86.711 Personal history of pulmonary embolism; Z90.49 Acquired absence of other specified parts of digestive tract; Z79.82 Long term (current) use of aspirin; Z88.6 Allergy status to analgesic agent; Z88.1 Allergy status to other antibiotic agents; Z88.5 Allergy status to narcotic agent; Z91.013 Allergy to seafood; Z91.018 Allergy to other foods; F41.9 Anxiety disorder, unspecified; F32.9 Major depressive disorder, single episode, unspecified; E21.1 Secondary hyperparathyroidism, not elsewhere classified; R19.7 Diarrhea, unspecified; R19.09 Other intra-abdominal and pelvic swelling, mass and lump
CPT/HCPCS: 36415; 71045-TC; 76705-TC; 80048-TC; 80076-TC; 80305; 81000-TC; 83690-TC; 83735-TC; 84100-TC; 84703-TC; 85025-TC; 86850-TC; 86921-TC; 87081-TC; 87086-TC; 90935-TC; G0378; G0480; J0360; J0610; J1200; J1815; J2270; J2405; J3490; J7030; J7060; P9016-BL

== ENCOUNTER 2019-10-06 00:42 | Inpatient (IN) | payer MEDICAID ==
[~2019-10-06] VITALS: Ht 165.1 cm; Wt 93.0 kg
[2019-10-06] VITALS (56 sets, daily range): BP systolic 107–215; BP diastolic 53–158
--- NOTE | 2019-10-06 01:30 | NUR ---
PT CAME TO THE ED C/O ABSCESS ON THE KATERIN ABSCESS AND SWELLING. PT STATES SHE IS UNABLE TO DO DIALYSIS LAST THURSDAY D/T HER SWELLING ARM. PT AAOX4, RR EVEN AND UNLABORED ON NAD NOTED. PT CONNECTED TO THE TAIL EDGER AND POX.
[2019-10-06] MEDS ORDERED: hydrALAZINE HCL IV 20 MG VIAL ONE ×2 (01:44→02:31)
--- NOTE | 2019-10-06 01:52 | NUR ---
BLOOD COLLECTED AND SENT TO LAB
--- NOTE | 2019-10-06 01:54 | NUR ---
EKG AT BEDSIDE
[2019-10-06 01:55] LABS: BASOPHILS % (AUTO) 0.5 % (0.0-2.0); EOSINOPHILS % (AUTO) 4.1 % (0.0-6.0); HEMATOCRIT 24 % (33-45); LYMPHOCYTES # (AUTO) 0.7 /CMM (0.8-4.8); LYMPHOCYTES % (AUTO) 12.2 % (20.0-44.0); MEAN CORPUSCULAR HGB CONC 33 g/dl (31.0-36.0); MEAN CORPUSCULAR VOLUME 102 fL (82-100); MONOCYTES # (AUTO) 0.7 /CMM (0.1-1.30); MONOCYTES % (AUTO) 12.3 % (2.0-12.0); NEUTROPHILS # (AUTO) 4.1 /CMM (1.8-8.9); NEUTROPHILS % (AUTO) 70.9 % (43.0-81.0); PLATELET COUNT (AUTO) 148 /CMM (150-450); WHITE BLOOD COUNT (AUTO) 5.8 K/uL (4.3-11.0)
[2019-10-06] MEDS ORDERED: hydrALAZINE HCL IV 20 MG VIAL IV ONE ×2 (02:00→02:30)
[2019-10-06 02:14] LABS: ALBUMIN 3.6 g/dL (3.4-5.0); BILIRUBIN,DIRECT 0.1 mg/dL (0.0-0.2); BILIRUBIN,TOTAL 0.4 mg/dL (0.2-1.0); POTASSIUM 5.6 mmol/L (3.5-5.1); TOTAL PROTEIN, SERUM 7.7 g/dL (6.4-8.2)
[2019-10-06 02:15] LABS: CREATININE 9.7 mg/dL (0.6-1.3)
--- NOTE | 2019-10-06 02:19 | NUR ---
US AT BEDSIDE
[2019-10-06] MEDS ORDERED: MORPHINE SULFATE INJ 4 MG/ML DISP.SYRIN ONE (02:44)
[2019-10-06] MEDS ORDERED: ONDANSETRON HCL/PF 4 MG/2 ML VIAL ONE (02:44)
[2019-10-06] MEDS ORDERED: MORPHINE SULFATE INJ 2 MG/ML DISP.SYRIN IV ONE (03:00)
[2019-10-06] MEDS ORDERED: ONDANSETRON HCL/PF 4 MG/2 ML VIAL IV ONE (03:00)
[2019-10-06] MEDS ORDERED: NTG 50 MG/D5W250 ML BOTTL 250 ML IV ONE (03:12)
[2019-10-06] MEDS ORDERED: NITROGLYCERIN 100 MG in IV D5W 230 ML IV PRN (03:30)
[2019-10-06] MEDS ORDERED: NICARDIPINE IN NACL, ISO-OSM 200 ML IV PRN (03:30)
[2019-10-06] MEDS ORDERED: NITROPRUSSIDE SODIUM 50 MG in IV D5W 250 ML IV PRN (03:30)
[2019-10-06] MEDS ORDERED: ACETAMINOPHEN 325 MG TABLET PO PRN (04:00)
[2019-10-06] MEDS ORDERED: MAGNESIUM HYDROXIDE 30 ML UDC PO PRN (04:00)
[2019-10-06] MEDS ORDERED: Z GUARD REMEDY 2 OZ OINT TP PRN (04:00)
[2019-10-06] MEDS ORDERED: ONDANSETRON HCL/PF 4 MG/2 ML VIAL IVP PRN (04:00)
--- NOTE | 2019-10-06 04:11 | NUR ---
PT RESTING AT BEDSIDE. EASILY AROUSED. NO ACUTE DISTRESS NOTED. WILL CONTINUE TO MONITOR
--- NOTE | 2019-10-06 04:50 | NUR ---
CALL BACK IN 15 MINS PER ICU
[2019-10-06] MEDS ORDERED: LORAZEPAM INJ 2 MG/ML VIAL ONE (05:03)
--- NOTE | 2019-10-06 05:19 | NUR ---
REPORT GIVEN TO YENIFER HARDING
[2019-10-06] MEDS ORDERED: LORAZEPAM INJ 2 MG/ML VIAL IV PRN (05:30)
--- NOTE | 2019-10-06 05:39 | NUR ---
PT TRANSFERED PER ACLS PROTOCOL
--- NOTE | 2019-10-06 05:45 | NUR ---
TAILOR HELPER NOTE RECEIVED PT VIA NASIM AND ABLE TO AMBULATE TO BED. A/O X2-3. ON 2L OF O2 VIA NC. TELE-SR. DENIES PAIN. NOTED SLEEPY/LETHARGIC IN BED. LEFT ARM HD SHUNT POSITIVE BRUIT AND THRILL. RECEIVED ON NITRO DRIP @120MCG. WITH SBP IN THE 200'S. BED ALARM ENABLED AND CALL LIGHT WITHIN REACH.
--- NOTE | 2019-10-06 06:00 | NUR ---
Per Dr. Kohler do not start cardene drip and wean off nitro drip. Give all home medication except coreg, change to diovan.
[2019-10-06] MEDS ORDERED: NTG 50 MG/D5W250 ML BOTTL 250 ML IV PRN (06:30)
--- NOTE | 2019-10-06 07:15 | NUR ---
SOCIAL SCIENCES CHAIR NOTES RECEIVED PATIENT AOX2-3 AGITATED , RESTLESS ON BED , ON2LPM NC SPO2 OF 100% NO SIGNS OF DISTRESS , SR 85 ON BEDSIDE MONITOR , L ARM AV SHUNT BRUIT AND THRILL , IV OF INSPECTOR FINISHING # 20 AND SALBADOR # 20 PATENT AND INTACT WITH CARDIZEM GTTS @ 120MCG/MIN INFUSING WELL , ALL NEEDS ATTENDED , BED ON LOW AND LOCKED POSITION , SIDE RAILS X2 CALL LIGHT WITHIN REACH , ALARMS MADE AUDIBLE , WILL CONTINUE TO MONITOR
[2019-10-06] MEDS: NIFEdipine XL (30MG) 30 MG TAB PO SCH ×2 (08:11→21:47)
[2019-10-06] MEDS: ISOSORBIDE DINITRATE (20MG) 20 MG TABLET PO SCH ×2 (08:11→17:02)
[2019-10-06] MEDS: CARVEDILOL 12.5 MG TABLET PO SCH ×2 (08:12→17:03)
[2019-10-06] MEDS: VALSARTAN 80 MG TABLET PO SCH ×2 (08:12→21:46)
[2019-10-06] MEDS: hydrALAZINE HCL 50 MG TABLET PO SCH ×4 (08:12→17:03)
--- NOTE | 2019-10-06 08:30 | NUR ---
MANAGER REGIONAL NOTES SEEN AND EVALUATED BY DR PABLO , DISCUSSED PT LABS , CXR AND BP , CURRENTLY ON NITRO DRIP , PT COMPLAINING OF GENERALIZED PT 01/22 , PER MD START ON DILAUDID 1MG Q3 PRN , ORDER CARRIED OUT
[2019-10-06] MEDS: hydrALAZINE HCL IV 20 MG VIAL IV PRN ×2 (08:40→18:07)
[2019-10-06] MEDS ORDERED: hydrALAZINE HCL 50 MG TABLET PO SCH (09:00)
[2019-10-06] MEDS: HYDROMORPHONE 1 MG/1 ML DISP.SYRIN IV PRN ×4 (09:10→20:25)
--- NOTE | 2019-10-06 10:42 | NUR ---
MUSIC ENGINEER NOTES PT VOMIT X1 MODERATE AMOUNT OF BILIOUS VOMITUS . PRN ZOFRAN GIVEN , WILL CONTINUE TO MONITOR
--- NOTE | 2019-10-06 12:00 | NUR ---
MANAGER CARDIOVASCULAR NOTES 1:1 SITTER AT BEDSIDE , PT AGITATED AND RESTLESS , WILL CONTINUE TO MONITOR
[2019-10-06] MEDS: NITROGLYCERIN 30 GM TUBE TOP SCH ×2 (12:09→17:03)
--- NOTE | 2019-10-06 16:48 | NUR ---
VERIFICATION ENGINEER NOTES PT NOTED WITH BLACK MODERATE AMOUNT OF OUTPUT VIA OGT , ATTACHED OGT TO LOW ICS , YEFRI NOTIFIED DR HERNANDEZ REGARDING OGT OUTPUT , PICC LINE DRESSING NOTE WITH SMALL AMOUNT OF BLOOD TROUGH THE GAUZE . WILL CONTINUE TO MONITOR
--- NOTE | 2019-10-06 17:53 | NUR ---
FEATURES EDITOR NOTES PT STABLE S/P HD , 3L OUT , VS STABLE , LEFT UPPER ARM AV SHUNT DRESSING C/D/I NO ACTIVE BLEEDING NOTED .
--- NOTE | 2019-10-06 20:34 | NUR ---
ICU/RN OPENING RECEIVED PATIENT IN BED WITH NO SIGN OF ANY DISTRESS. PATIENT IS A/O X3 WITH SOME DROWSINESS. PATIENT IS ON 4L OF O2 ON NC SATURATING AT 96% WITH NO SIGNS OF ANY SOB. PATIENT HAS A RFA #20 AND A SALBADOR #20 BOTH PATENT AND FLUSHING ON S/L. SITTER AT BEDSIDE, BEDSIDE COMMODE AT BEDSIDE. ALL SAFETY PRECAUTIONS HAVE BEEN APPLIED WILL CONTINUE TO MONITOR PATIENT THROUGHOUT SHIFT.
[2019-10-07] VITALS (19 sets, daily range): BP systolic 110–166; BP diastolic 41–86
[2019-10-07] MEDS: NITROGLYCERIN 30 GM TUBE TOP SCH ×2 (00:35→05:58)
[2019-10-07] MEDS: HYDROMORPHONE 1 MG/1 ML DISP.SYRIN IV PRN ×4 (02:44→22:32)
[2019-10-07 05:09] LABS: CALCIUM, SERUM 8.2 mg/dL (8.5-10.1); MAGNESIUM 2.4 mg/dL (1.8-2.4); PHOSPHORUS 7.4 mg/dL (2.5-4.9); POTASSIUM 5.7 mmol/L (3.5-5.1)
[2019-10-07 05:10] LABS: CREATININE 8.9 mg/dL (0.6-1.3)
[2019-10-07 06:01] LABS: BASOPHILS % (AUTO) 0.3 % (0.0-2.0); EOSINOPHILS % (AUTO) 0.8 % (0.0-6.0); HEMATOCRIT 23 % (33-45); HEMOGLOBIN 7.5 g/dL (11.5-14.8); LYMPHOCYTES # (AUTO) 0.3 /CMM (0.8-4.8); LYMPHOCYTES % (AUTO) 5.1 % (20.0-44.0); MEAN CORPUSCULAR HGB CONC 33 g/dl (31.0-36.0); MEAN CORPUSCULAR VOLUME 102 fL (82-100); MONOCYTES # (AUTO) 0.7 /CMM (0.1-1.30); MONOCYTES % (AUTO) 11.9 % (2.0-12.0); NEUTROPHILS # (AUTO) 4.6 /CMM (1.8-8.9); NEUTROPHILS % (AUTO) 81.9 % (43.0-81.0); PLATELET COUNT (AUTO) 151 /CMM (150-450); RED BLOOD CELL COUNT(AUTO) 2.24 MIL/uL (4.0-5.2); WHITE BLOOD COUNT (AUTO) 5.6 K/uL (4.3-11.0)
--- NOTE | 2019-10-07 07:17 | NUR ---
ICU/RN CLOSING PATIENT IN BED CURRENTLY WITH NO SIGN OF ANY DISTRESS A/O X3. ON 4L OF O2 ON NC WITH NO SIGN OF SOB. PATIENT HAS SALBADOR #20, RFA #20 BOTH PATENT AND FLUSHING ON S/L. PATIENT HAS BEDSIDE COMMODE WITH BED ALARM ON. ALL SAFETY PRECAUTIONS APPLIED ENDORSED TO MORNING SHIFT NURSE FOR FRANSICO.
--- NOTE | 2019-10-07 07:55 | NUR ---
PLASTIC TOP ASSEMBLER: pt is uncooperative now, left bed, oriented for POC, fall risk, meds, orders, - agree. connected back to monitor, got pain med around 0600 d/t L.shoulder/upper arm AV shunt, SR, SBP over 100 below 160 now, Nitro gtt is off, O2sat. over 94% on 4L nc, no SOB, c/o multiple itching, no chance, sitter at BS, plan: HD today
--- NOTE | 2019-10-07 08:40 | NUR ---
ELEVATOR REPAIR MECHANIC: is in room, updated with pt.current condition, VS, c/o pain/location, itching, labs, meds, ordered: Benadryl 25mg Iv q6h prn, ok to tele, charge nurse updated
--- NOTE | 2019-10-07 08:41 | NUR ---
CASE MANAGEMENT DIRECTOR: ok transfer to [facility]
[2019-10-07] MEDS: ISOSORBIDE DINITRATE (20MG) 20 MG TABLET PO SCH ×2 (08:53→17:00)
[2019-10-07] MEDS: VALSARTAN 80 MG TABLET PO SCH ×2 (08:53→22:31)
[2019-10-07] MEDS: NIFEdipine XL (30MG) 30 MG TAB PO SCH ×2 (08:54→22:31)
[2019-10-07] MEDS: CARVEDILOL 12.5 MG TABLET PO SCH ×2 (08:54→17:00)
[2019-10-07] MEDS: hydrALAZINE HCL 50 MG TABLET PO SCH ×3 (08:54→17:00)
[2019-10-07] MEDS: diphenhydrAMINE HCL 50 MG/ML VIAL IV PRN ×2 (09:13→17:31)
--- NOTE | 2019-10-07 10:26 | NUR ---
VOLUNTEER SERVICES ASSISTANT: order to stop Tylenol placed in d/t allergy/pt.confirmed
--- NOTE | 2019-10-07 10:49 | NUR ---
ADJUNCT WRITING INSTRUCTOR: pt is transferred to MS after full report for Terri,RN
--- NOTE | 2019-10-07 11:15 | NUR ---
MS RN NOTES RECEIVED PATIENT IN BED FROM ICU NURSE. AOX2-3. STABLE V/S. PT ON 4L OF O2 ON NC SATURATING WELL. NO S/S OF ANY ACUTE DISTRESS AT TIME. PT HAS A RFA G#20 AND A SALBADOR #20, BOTH INTACT AND PATENT. KATERIN AV SHUNT. 1:1 SITTER AT BEDSIDE, PRECAUTIONS IN PLACE. BED IN LOCKED LOWEST POSITION, SIDE RAILS UP X 2. CALL LIGHT WITHIN REACH. WILL CONTINUE TO MONITOR
--- NOTE | 2019-10-07 17:00 | NUR ---
MS RN NOTES B/P MEDS NOT ADMINISTERED DUE TO PT SCHEDULED FOR HD TODAY AND DECREASED BLOOD PRESSURE. BP 114/53, HR 62. BP MEDICATIONS HELD PER DIALYSIS NURSE YENIFER TAYLOR
--- NOTE | 2019-10-07 18:57 | NUR ---
MS/RN NOTE THE PATIENT REQUESTING BENADRYL IV PUSH WITH THE START OF DIALYSIS DESPITE THAT SHE ALREADY GOT BENADRYL 25 MG IV PUSH AT 1731. DR PABLO IS MADE AWARE AND DR OBTAINED NEW ORDER OF BENADRYL 25 MG IV PUSH X1. NOTED AND CARRIED OUT.
--- NOTE | 2019-10-07 18:59 | NUR ---
MS RN CLOSING NOTES PT IN BED AWAKE AT THIS TIME.PT STABLE AT THIS TIME. AOX2-3. PT ON 4L OF O2 ON NC SATURATING WELL. NO S/S OF ANY ACUTE DISTRESS AT TIME. RFA G#20 AND A SALBADOR #20, BOTH INTACT AND PATENT. KATERIN AV SHUNT INTACT. PT HAVING HD AT THIS TIME. ALL NEEDS ATTENDED TO. PAIN MANAGEMENT ADMINISTERED PER SCHEDULE. 1:1 SITTER AT BEDSIDE, PRECAUTIONS IN PLACE. BED IN LOCKED LOWEST POSITION, SIDE RAILS UP X 2. CALL LIGHT WITHIN REACH. WILL ENDORSE TO JACQUARD CARD LACER NURSE FOR FRANSICO
[2019-10-07] MEDS ORDERED: diphenhydrAMINE HCL 50 MG/ML VIAL IV ONE (19:00)
[2019-10-08] MEDS: HYDROMORPHONE 1 MG/1 ML DISP.SYRIN IV PRN ×3 (03:01→09:59)
--- NOTE | 2019-10-08 03:06 | NUR ---
RN NOTES ADMINISTERED DILAUDID 1 MG USING VIAL WITH [facility] [phone], BARCODE UNREADABLE
[2019-10-08] MEDS: diphenhydrAMINE HCL 50 MG/ML VIAL IV PRN ×2 (04:00→10:57)
--- NOTE | 2019-10-08 06:30 | NUR ---
ALERT AND ORIENTED X3, ROOM AIR, ON 4LPM VIA NC PRN, 10/07/19 HD, OUTPUT 3.5 L, LEFT AV SHUNT PATENT, NO BLEEDING, OLIGURIC, GIVEN DILAUDID 1 MG IVPB Q3HRS AND BENADRYL FOR ITCHING, WITH SITTER, RISK OF ELOPEMENT, NON COMPLIANT WITH MEDICATION AND TREATMENT, VS STABLE, AFEBRILE, FOR DISCHARGE PLANNING WHEN CLEARED BY NEPHRO
--- NOTE | 2019-10-08 07:00 | NUR ---
MS RN OPENING NOTES RECEIVED PATIENT IN BED AWAKE AT THIS TIME. AOX2-3. PT APPEARS COMFORTABLE WITH NO S/S OF ANY ACUTE DISTRESS AT TIME. PT HAS A RFA G#20 AND A SALBADOR #20, BOTH INTACT AND PATENT. KATERIN AV SHUNT. 1:1 SITTER AT BEDSIDE, SAFETY PRECAUTIONS IN PLACE. BED IN LOCKED LOWEST POSITION, SIDE RAILS UP X 2. CALL LIGHT WITHIN REACH. WILL CONTINUE TO MONITOR
[2019-10-08 08:00] VITALS: BP 142/74
[2019-10-08] MEDS ORDERED: ISOS20TA8 PO (09:19)
[2019-10-08] MEDS ORDERED: HYDR-4077 PO (09:19)
--- NOTE | 2019-10-08 09:30 | NUR ---
PT IS UNDERGOING HEMODIALYSIS PROCEDURE AT THIS TIME.
[2019-10-08] MEDS: CARVEDILOL 12.5 MG TABLET PO SCH (09:40)
[2019-10-08] MEDS: NIFEdipine XL (30MG) 30 MG TAB PO SCH (09:41)
[2019-10-08] MEDS: VALSARTAN 80 MG TABLET PO SCH (09:41)
[2019-10-08] MEDS: hydrALAZINE HCL 50 MG TABLET PO SCH ×2 (09:42→13:10)
[2019-10-08] MEDS: ISOSORBIDE DINITRATE (20MG) 20 MG TABLET PO SCH (09:42)
--- NOTE | 2019-10-08 11:36 | NUR ---
HEMODIALYSIS PROCEDURE COMPLETED WITH 2 LITERS OUTPUT. WITH STABLE V/S.PT WANTS TOTAKE A SHOWER.ASSISTED TO THE SHOWER AND PROVIDED NEW AND CLEAN CLOTHES AND NEW PAIR OF NIKE SHOES.
[2019-10-08 13:10] VITALS: BP 132/72
--- NOTE | 2019-10-08 14:30 | NUR ---
MS CAR MECHANIC HELPER NOTES PT DISCHARGED HOME IN STABLE CONDITION, ACCOMPANIED TO LOBBY BY GERMANIA KEYES, PT AO X3. V/S STABLE AND PT AFEBRILE. ALL BELONGINGS ACCOUNTED FOR AND FILED. HEMO DIALYSIS DONE, DRESSING DONE ON KATERIN AV SHUNT AND INTACT. BENADRYL ADMINISTERED FOR ITCHES, PAIN MANAGEMENT ADMINISTERED PER ORDER. PT DENIES ANY DISCOMFORT AT THIS TIME. IV ACCESS REMOVED FROM RIGHT ARM G# 20 SL, SKIN INTACT WITH NO BLEEDING NOTED
== END 2019-10-08 14:07 | disposition home or self-care (01) | DRG 194 ==
LOC: ER 00:42 → ICU 04:48 → MED 10-07 10:58
PROVIDERS: ADMIT Nurse Practitioner Acute Care; ATTEND Internal Medicine
PROC: 5A1D70Z Performance of Urinary Filtration, Intermittent, Less than 6 Hours Per Day (ICD-10-PCS; principal; 2019-10-06)
DX: I13.2 Hypertensive heart and chronic kidney disease with heart failure and with stage 5 chronic kidney disease, or end stage renal disease (principal); N18.6 End stage renal disease; D68.69 Other thrombophilia; I27.20 Pulmonary hypertension, unspecified; E87.5 Hyperkalemia; Z79.01 Long term (current) use of anticoagulants; N25.0 Renal osteodystrophy; I16.1 Hypertensive emergency; I50.33 Acute on chronic diastolic (congestive) heart failure; Z99.2 Dependence on renal dialysis; Z91.19 Patient's noncompliance with other medical treatment and regimen; G40.909 Epilepsy, unspecified, not intractable, without status epilepticus; D63.8 Anemia in other chronic diseases classified elsewhere; F32.9 Major depressive disorder, single episode, unspecified; J45.909 Unspecified asthma, uncomplicated; Z86.711 Personal history of pulmonary embolism; Z86.718 Personal history of other venous thrombosis and embolism; Z86.73 Personal history of transient ischemic attack (TIA), and cerebral infarction without residual deficits; M79.622 Pain in left upper arm; K21.9 Gastro-esophageal reflux disease without esophagitis; Z91.14 Patient's other noncompliance with medication regimen; E78.5 Hyperlipidemia, unspecified; G89.4 Chronic pain syndrome
CPT/HCPCS: 36415; 71045-TC; 80048-TC; 80076-TC; 83735-TC; 84100-TC; 84702-TC; 85025-TC; 85730-TC; 86706; 87081-TC; 87340; 90935-TC; 93971-TC; A6403; G0378; J0360; J1170; J1200; J2060; J2270; J2405; J3490; J7042

== ENCOUNTER 2019-10-10 20:55 | Emergency (ER) | payer MEDICAID ==
[~2019-10-10] VITALS: Ht 165.1 cm; Wt 95.7 kg
[~2019-10-10 20:55] MED LIST changes: -GABA-532 PO; +ISOS20TA8 PO
--- NOTE | 2019-10-10 21:45 | NUR ---
PT AAOX4. AMBULATORY C/O ABD PAIN, N/V X 2-3V DAYS. PLACED ON MONITOR AND PULSE OX. NO ACUTE DISTRESS NOTED.
[2019-10-10 22:11] LABS: BASOPHILS # (AUTO) 0.1 /CMM (0.0-0.2); BASOPHILS % (AUTO) 0.9 % (0.0-2.0); EOSINOPHILS % (AUTO) 3.6 % (0.0-6.0); HEMATOCRIT 24 % (33-45); HEMOGLOBIN 7.8 g/dL (11.5-14.8); LYMPHOCYTES # (AUTO) 0.8 /CMM (0.8-4.8); LYMPHOCYTES % (AUTO) 14.6 % (20.0-44.0); MEAN CORPUSCULAR HGB CONC 33 g/dl (31.0-36.0); MEAN CORPUSCULAR VOLUME 104 fL (82-100); MONOCYTES # (AUTO) 0.7 /CMM (0.1-1.30); MONOCYTES % (AUTO) 12.9 % (2.0-12.0); NEUTROPHILS # (AUTO) 3.9 /CMM (1.8-8.9); PLATELET COUNT (AUTO) 162 /CMM (150-450); RED BLOOD CELL COUNT(AUTO) 2.31 MIL/uL (4.0-5.2); WHITE BLOOD COUNT (AUTO) 5.7 K/uL (4.3-11.0)
[2019-10-10 22:28] LABS: ALBUMIN 3.6 g/dL (3.4-5.0); BILIRUBIN,DIRECT 0.1 mg/dL (0.0-0.2); BILIRUBIN,TOTAL 0.6 mg/dL (0.2-1.0); CALCIUM, SERUM 8.2 mg/dL (8.5-10.1); POTASSIUM 5.8 mmol/L (3.5-5.1); TOTAL PROTEIN, SERUM 7.9 g/dL (6.4-8.2)
[2019-10-10] MEDS ORDERED: NITROGLYCERIN 0.4 MG/TAB BOTTLE ONE (22:29)
[2019-10-10] MEDS ORDERED: NITROGLYCERIN 0.4 MG/TAB BOTTLE SL ONE (22:30)
[2019-10-10 22:31] LABS: CREATININE 10.3 mg/dL (0.6-1.3)
[2019-10-10] MEDS ORDERED: ISOSORBIDE DINITRATE (10MG) 10 MG TABLET PO SCH (23:30)
[2019-10-10] MEDS ORDERED: VALSARTAN 80 MG TABLET PO SCH (23:30)
[2019-10-10] MEDS ORDERED: NIFEdipine XL (30MG) 30 MG TAB PO SCH (23:30)
[2019-10-10] MEDS ORDERED: hydrALAZINE HCL IV 20 MG VIAL IV ONE (23:30)
[2019-10-10] MEDS ORDERED: hydrALAZINE HCL 10 MG TABLET PO SCH (23:30)
[2019-10-10] MEDS ORDERED: CARVEDILOL 6.25 MG TABLET PO SCH (23:30)
[2019-10-10] MEDS ORDERED: NITROGLYCERIN 100 MG in IV D5W 230 ML IV PRN (23:30)
--- NOTE | 2019-10-10 23:35 | NUR ---
ER DOC ON PHONE WITH HOSPITALIST
[2019-10-11] MEDS ORDERED: NTG 50 MG/D5W250 ML BOTTL 250 ML IV ONE (00:03)
[2019-10-11] MEDS ORDERED: Z GUARD REMEDY 2 OZ OINT TP PRN (00:30)
[2019-10-11] MEDS ORDERED: MAGNESIUM HYDROXIDE 30 ML UDC PO PRN (00:30)
[2019-10-11] MEDS ORDERED: TOPIRAMATE 100 MG TABLET PO SCH (00:30)
[2019-10-11] MEDS ORDERED: ACETAMINOPHEN 325 MG TABLET PO PRN (00:30)
[2019-10-11] MEDS ORDERED: ONDANSETRON HCL/PF 4 MG/2 ML VIAL IVP PRN (00:30)
[2019-10-11] MEDS ORDERED: APIXABAN 5 MG TABLET PO SCH (00:30)
[2019-10-11] MEDS ORDERED: ZOLPIDEM TARTRATE 5 MG TABLET PO PRN (00:30)
[2019-10-11] MEDS ORDERED: CITALOPRAM HYDROBROMIDE 20 MG TABLET PO SCH (00:30)
[2019-10-11] MEDS ORDERED: hydrALAZINE HCL IV 20 MG VIAL ONE (02:04)
--- NOTE | 2019-10-11 03:20 | NUR ---
IV removed. Catheter intact and site benign. Pressure and 4x4 applied to site. No bleeding noted.
--- NOTE | 2019-10-11 03:34 | NUR ---
Patient does not wish to proceed with medical care recommended by Dr. Kathleen. Patient given information related to possible complications, up to and including , which could occur as a result of leaving the hospital at this time. Patient verbalizes understanding of risks involved due to leaving against medical advice. Patient has signed AMA form.
[2019-10-11 03:38] VITALS: BP 149/91
[2019-10-11] MEDS ORDERED: SEVELAMER CARBONATE 800 MG TABLET PO SCH (08:00)
[2019-10-11] MEDS ORDERED: ASPIRIN EC 81 MG TABLET.DR PO SCH (09:00)
== END 2019-10-11 03:41 | disposition left against medical advice (07) ==
LOC: ER 20:56
DX: I16.0 Hypertensive urgency (principal); I12.0 Hypertensive chronic kidney disease with stage 5 chronic kidney disease or end stage renal disease; N18.5 Chronic kidney disease, stage 5; Z99.2 Dependence on renal dialysis; Z91.15 Patient's noncompliance with renal dialysis; Z76.5 Malingerer [conscious simulation]; Z98.890 Other specified postprocedural states; Z86.718 Personal history of other venous thrombosis and embolism; Z91.018 Allergy to other foods; Z88.1 Allergy status to other antibiotic agents; Z88.6 Allergy status to analgesic agent; Z88.5 Allergy status to narcotic agent; Z79.899 Other long term (current) drug therapy; Z79.82 Long term (current) use of aspirin
CPT/HCPCS: 36415; 71045; 80048; 80076; 83690; 84484; 85025; 96365; 96366; 96375; 99285; J0360; J3490; 87081-TC

== ENCOUNTER 2019-11-17 02:29 | Emergency (ER) | payer MEDICAID ==
[~2019-11-17] VITALS: Ht 165.1 cm; Wt 85.7 kg
[2019-11-17] MEDS ORDERED: diphenhydrAMINE HCL 50 MG CAPSULE ONE (03:56)
[2019-11-17] MEDS ORDERED: ONDANSETRON 4 MG TAB.RAPDIS ONE (03:57)
[2019-11-17] MEDS ORDERED: diphenhydrAMINE HCL 50 MG/ML VIAL IM ONE (04:00)
[2019-11-17] MEDS ORDERED: ONDANSETRON 4 MG TAB.RAPDIS SL ONE (04:00)
--- NOTE | 2019-11-17 04:02 | NUR ---
PT AAOX4. AMBULATORY C/O GENERALIZED ALLERGIC REACTION. PT STATED "THERES HAIR ALL OVER MY TONGUE AND BODY AND IT'S ITCHING." ALSO C/O ABD PAIN S/P UNKNOWN SURGERY. PALCED ON MONITOR AND PULSE OX. VSS.
--- NOTE | 2019-11-17 05:32 | NUR ---
Patient discharged to home in stable condition. Written and verbal after care instructions given. Patient verbalizes understanding of instruction. Pt stated she feels better. Ambulated with steady gait.
[2019-11-17 05:33] VITALS: BP 156/98
== END 2019-11-17 05:57 | disposition home or self-care (01) ==
LOC: ER 02:29
DX: R21 Rash and other nonspecific skin eruption (principal); G51.0 Bell's palsy; I12.0 Hypertensive chronic kidney disease with stage 5 chronic kidney disease or end stage renal disease; N18.6 End stage renal disease; Z99.2 Dependence on renal dialysis; Z86.73 Personal history of transient ischemic attack (TIA), and cerebral infarction without residual deficits; Z91.018 Allergy to other foods; Z88.1 Allergy status to other antibiotic agents; Z88.6 Allergy status to analgesic agent; Z88.5 Allergy status to narcotic agent; Z79.899 Other long term (current) drug therapy; Z79.82 Long term (current) use of aspirin
CPT/HCPCS: 96372; 99283; Q0162; Q0163

== ENCOUNTER 2019-12-09 03:26 | Inpatient (IN) | payer MEDICAID ==
[2019-12-09] VITALS (18 sets, daily range): BP systolic 139–240; BP diastolic 77–148
[~2019-12-09] VITALS: Ht 167.6 cm; Wt 88.5 kg
--- NOTE | 2019-12-09 04:20 | NUR ---
PT CAME TO THE ED C/O MID ABDOMINAL PAIN RADIATING TO THE LEFT. +NAUSEA. PT STATES "I HAD HERNIA SURGERY [address] [facility]". PT AAOX4, RESPIRATIONS EVEN AND UNLABORED ON RA W/ NAD NOTED. PT CONNECTED TO THE TRANSMISSION BUILDER AND POX
[2019-12-09] MEDS ORDERED: IV NS 0.9% 1,000 ML BAG IV ONE (04:30)
[2019-12-09] MEDS ORDERED: MORPHINE SULFATE INJ 2 MG/ML DISP.SYRIN IV ONE (04:30)
[2019-12-09] MEDS ORDERED: ONDANSETRON HCL/PF 4 MG/2 ML VIAL IVP ONE (04:30)
[2019-12-09] MEDS ORDERED: MORPHINE SULFATE INJ 4 MG/ML DISP.SYRIN ONE (04:34)
[2019-12-09] MEDS ORDERED: ONDANSETRON HCL/PF 4 MG/2 ML VIAL ONE (04:34)
[2019-12-09 04:41] LABS: BASOPHILS # (AUTO) 0.1 /CMM (0.0-0.2); BASOPHILS % (AUTO) 1.2 % (0.0-2.0); HEMATOCRIT 23 % (33-45); HEMOGLOBIN 7.5 g/dL (11.5-14.8); LYMPHOCYTES # (AUTO) 0.4 /CMM (0.8-4.8); LYMPHOCYTES % (AUTO) 8.1 % (20.0-44.0); MEAN CORPUSCULAR HGB CONC 33 g/dl (31.0-36.0); MEAN CORPUSCULAR VOLUME 99 fL (82-100); MONOCYTES # (AUTO) 0.4 /CMM (0.1-1.30); MONOCYTES % (AUTO) 8.2 % (2.0-12.0); NEUTROPHILS # (AUTO) 4.3 /CMM (1.8-8.9); NEUTROPHILS % (AUTO) 78.5 % (43.0-81.0); PLATELET COUNT (AUTO) 112 /CMM (150-450); RED BLOOD CELL COUNT(AUTO) 2.32 MIL/uL (4.0-5.2); WHITE BLOOD COUNT (AUTO) 5.5 K/uL (4.3-11.0)
--- NOTE | 2019-12-09 05:00 | NUR ---
PT UNABLE TO PROVIDE URINE. MD AWARE
[2019-12-09 05:01] LABS: ALBUMIN 3.6 g/dL (3.4-5.0); BILIRUBIN,DIRECT 0.1 mg/dL (0.0-0.2); BILIRUBIN,TOTAL 0.3 mg/dL (0.2-1.0); CALCIUM, SERUM 7.2 mg/dL (8.5-10.1); POTASSIUM 5.5 mmol/L (3.5-5.1); TOTAL PROTEIN, SERUM 7.8 g/dL (6.4-8.2)
--- NOTE | 2019-12-09 05:01 | NUR ---
PT TAKEN TO RADIOLOGY FOR CT
--- NOTE | 2019-12-09 05:15 | NUR ---
PT BACK FROM RADIOLOGY FROM CT
[2019-12-09] MEDS ORDERED: hydrALAZINE HCL IV 20 MG VIAL ONE (05:17)
[2019-12-09 05:25] LABS: CREATININE 11.8 mg/dL (0.6-1.3)
[2019-12-09] MEDS ORDERED: hydrALAZINE HCL IV 20 MG VIAL IV ONE (05:30)
[2019-12-09] MEDS ORDERED: NTG 50 MG/D5W250 ML BOTTL 250 ML IV ONE (05:39)
[2019-12-09] MEDS: NTG 50 MG/D5W250 ML BOTTL 250 ML IV PRN ×2 (06:05→09:14)
--- NOTE | 2019-12-09 07:23 | NUR ---
HIGINIO MAY NP ON THE PHONE W/ DR LEWIS
--- NOTE | 2019-12-09 07:28 | NUR ---
ENDORSEMENT RECEIVED FROM JACK [address]RE[address] FOR FRANSICO
[2019-12-09] MEDS ORDERED: HYDR-4076 PO (07:51)
[2019-12-09] MEDS ORDERED: ALBU18HF2 IH (07:51)
[2019-12-09] MEDS ORDERED: POLY17PO4 PO (07:51)
[2019-12-09] MEDS ORDERED: CLON0.2T PO (07:51)
[2019-12-09] MEDS ORDERED: LIDO30AD10 TP (07:51)
[2019-12-09] MEDS ORDERED: NIFE90TA61 PO (07:51)
[2019-12-09] MEDS ORDERED: CALC0.253 PO (07:51)
[2019-12-09] MEDS ORDERED: METO-295 PO (07:51)
[2019-12-09] MEDS ORDERED: LEVO50TA8 PO (07:51)
[2019-12-09] MEDS ORDERED: FOLI0.4T2 PO (07:51)
[2019-12-09] MEDS ORDERED: BISA5TAB10 PO (07:51)
[2019-12-09] MEDS ORDERED: ESCI10TA PO (07:51)
[2019-12-09] MEDS ORDERED: PANT40TA2 PO (07:51)
--- NOTE | 2019-12-09 07:53 | NUR ---
REPORT GIVEN TO [address]RE[address] OF ICU FOR ROOM 258
--- NOTE | 2019-12-09 08:11 | NUR ---
TRANSFERRED TO ICU VIA [place] WITH SECURITY PROJECT MANAGER.
--- NOTE | 2019-12-09 08:30 | NUR ---
ICU/RN PT ADMITTED FROM ER. WITH VERY HIGH BLOOD PRESSURE.ON NITROGLYCERINE DRIP .PT IS AWAKE ,ALERT-3-4.AFEBRILE..C/O OF ABDOMINAL PAIN .PT IS ON ROOM AIR ,SAT O2-99%.ESRD. ON HD.LEFT UPPER ARM HD FISTULA.GENERALIZED EDEMA PRESENT. LABS REVIEW.WAITING F0R HD.
[2019-12-09] MEDS ORDERED: ASPIRIN EC 81 MG TABLET.DR PO SCH (09:00)
[2019-12-09] MEDS ORDERED: CLONIDINE HCL 0.2 MG TABLET PO SCH (09:00)
[2019-12-09] MEDS ORDERED: ONDANSETRON HCL/PF 4 MG/2 ML VIAL IV PRN (09:00)
[2019-12-09] MEDS ORDERED: ESCITALOPRAM OXALATE (10 MG) 10 MG TABLET PO SCH (09:00)
[2019-12-09] MEDS ORDERED: CALCITRIOL 0.25 MCG CAPSULE PO SCH (09:00)
[2019-12-09] MEDS ORDERED: BISACODYL (5 MG) 5 MG TABLET.DR PO SCH (09:00)
[2019-12-09] MEDS ORDERED: CARVEDILOL 12.5 MG TABLET PO SCH (09:00)
[2019-12-09] MEDS ORDERED: ZOLPIDEM TARTRATE 5 MG TABLET PO PRN (09:00)
[2019-12-09] MEDS ORDERED: LIDOCAINE 5% (PATCH) 1 EA PATCH TP PRN (09:00)
[2019-12-09] MEDS ORDERED: APIXABAN 5 MG TABLET PO SCH (09:00)
[2019-12-09] MEDS ORDERED: Z GUARD REMEDY 2 OZ OINT TP PRN (09:00)
[2019-12-09] MEDS: MORPHINE SULFATE INJ 4 MG/ML DISP.SYRIN IV PRN ×2 (09:12→12:51)
[2019-12-09] MEDS ORDERED: FOLIC ACID 1 MG TABLET PO SCH (09:20)
--- NOTE | 2019-12-09 09:20 | NUR ---
ICU/RN PT C/O OF ABDOMINAL PAIN -03/24.MORPHINE SULFATE 4 MG IV GIVEN ORDERED.ZOFRAN IV GIVEN FOR NAUSEA.REPOSITION FOR COMFORT.
[2019-12-09] MEDS ORDERED: NIFEdipine XL (30MG) 30 MG TAB PO SCH (09:22)
[2019-12-09] MEDS ORDERED: CLONIDINE HCL 0.1 MG TABLET PO SCH (09:27)
[2019-12-09] MEDS ORDERED: TOPIRAMATE 100 MG TABLET PO SCH (09:40)
--- NOTE | 2019-12-09 09:40 | NUR ---
ICU/RN DUE MEDS ARE GIVEN ORDERED.
[2019-12-09 10:12] LABS: ALBUMIN 3.3 g/dL (3.4-5.0); BILIRUBIN,DIRECT 0.1 mg/dL (0.0-0.2); BILIRUBIN,TOTAL 0.4 mg/dL (0.2-1.0); POTASSIUM 5.4 mmol/L (3.5-5.1)
[2019-12-09 10:14] LABS: CREATININE 12.1 mg/dL (0.6-1.3)
[2019-12-09] MEDS: SEVELAMER CARBONATE 800 MG TABLET PO SCH ×2 (11:13→12:50)
[2019-12-09] MEDS ORDERED: diphenhydrAMINE HCL 25 MG CAPSULE PO PRN (11:30)
[2019-12-09] MEDS ORDERED: diphenhydrAMINE HCL 50 MG/ML VIAL IV PRN (12:00)
--- NOTE | 2019-12-09 12:55 | NUR ---
ICU/RN PT C/O OF PAIN MORPHINE SULFATE IV GIVEN ORDERED,HD STARTED.
[2019-12-09] MEDS ORDERED: NTG 50 MG/D5W250 ML BOTTL 250 ML IV PRN (13:00)
[2019-12-09] MEDS ORDERED: NITROGLYCERIN 100 MG in IV D5W 230 ML IV PRN (13:00)
--- NOTE | 2019-12-09 14:10 | NUR ---
ICU/RN PT IS VERY AGITATED STOP HD AND WANTS TO LEAVE HOSPITAL AMA.YADIRA [facility] NOTIFIED.
--- NOTE | 2019-12-09 14:15 | NUR ---
ICU/RN DR MIKE Young TALK TO THE PATIENT.
[2019-12-09] MEDS ORDERED: NICARDIPINE IN NACL, ISO-OSM 200 ML IV PRN (14:30)
--- NOTE | 2019-12-09 14:50 | NUR ---
ICU/RN IV REMOVED.PT LEFT AMA . NOTIFIED.
[2019-12-10] MEDS ORDERED: PANTOPRAZOLE 40 MG TABLET.DR PO SCH (07:30)
[2019-12-10] MEDS ORDERED: LEVOTHYROXINE SODIUM 25 MCG TABLET PO SCH (07:30)
== END 2019-12-09 14:51 | disposition left against medical advice (07) | DRG 282 ==
LOC: ER 03:26 → ICU 07:58
PROVIDERS: ADMIT Nurse Practitioner Acute Care; ATTEND Nurse Practitioner Acute Care
PROC: 5A1D70Z Performance of Urinary Filtration, Intermittent, Less than 6 Hours Per Day (ICD-10-PCS; principal; 2019-12-09)
DX: K85.90 Acute pancreatitis without necrosis or infection, unspecified (principal); I13.2 Hypertensive heart and chronic kidney disease with heart failure and with stage 5 chronic kidney disease, or end stage renal disease; D68.69 Other thrombophilia; I27.20 Pulmonary hypertension, unspecified; N18.6 End stage renal disease; E87.5 Hyperkalemia; I16.1 Hypertensive emergency; I50.33 Acute on chronic diastolic (congestive) heart failure; D63.1 Anemia in chronic kidney disease; E78.5 Hyperlipidemia, unspecified; F32.9 Major depressive disorder, single episode, unspecified; G40.909 Epilepsy, unspecified, not intractable, without status epilepticus; G89.29 Other chronic pain; J45.909 Unspecified asthma, uncomplicated; K21.9 Gastro-esophageal reflux disease without esophagitis; Z86.711 Personal history of pulmonary embolism; Z86.718 Personal history of other venous thrombosis and embolism; Z86.73 Personal history of transient ischemic attack (TIA), and cerebral infarction without residual deficits; Z91.19 Patient's noncompliance with other medical treatment and regimen; Z79.01 Long term (current) use of anticoagulants; Z99.2 Dependence on renal dialysis
CPT/HCPCS: 36415; 71045-TC; 80048-TC; 80053-TC; 80076-TC; 82150-TC; 83690-TC; 84484-TC; 85025-TC; 85730-TC; 87081-TC; 90935-TC; G0378; J0360; J1200; J2270; J2405; J3490; J7030; J7060; Q0163

== ENCOUNTER 2019-12-11 01:31 | Inpatient (IN) | payer MEDICAID ==
[~2019-12-11] VITALS: Ht 167.6 cm; Wt 88.5 kg
[~2019-12-11 01:31] MED LIST changes: +ALBU18HF2 IH; +BISA5TAB10 PO; +CALC0.253 PO; -CALC667C6 PO; -CITA20TA16 PO; +CLON0.2T PO; +ESCI10TA PO; +FOLI0.4T2 PO; +HYDR-4076 PO; -HYDR-4077 PO; -ISOS20TA8 PO; +LEVO50TA8 PO; +LIDO30AD10 TP; -LOSA25TA27 PO; +METO-295 PO; -NIFE60TA73 PO; +NIFE90TA61 PO; +PANT40TA2 PO; +POLY17PO4 PO; -QUET100T PO; -QUET400T PO
--- NOTE | 2019-12-11 01:49 | NUR ---
PATIENT CAME TO ER BED 9 C/O MID EPIGASTRIC PAIN RADIATING TO THE LEFT SIDE SINCE 2 WEEKS AGO WITH ON AND OFF PAIN. PATIENT STATES, "I HAD HERNIA SURGERY ABOUT 2 WEEKS AGO". AAOX4. NO SOB. BREATHING EVENLY AND UNLABORED ON ROOM AIR. CONNECTED TO MONITOR.
--- NOTE | 2019-12-11 02:30 | NUR ---
BLOOD DRAWN AND SENT [facility].
[2019-12-11 02:59] LABS: BASOPHILS % (AUTO) 0.4 % (0.0-2.0); EOSINOPHILS % (AUTO) 6.5 % (0.0-6.0); HEMATOCRIT 22 % (33-45); HEMOGLOBIN 7.2 g/dL (11.5-14.8); LYMPHOCYTES # (AUTO) 0.4 /CMM (0.8-4.8); LYMPHOCYTES % (AUTO) 8.7 % (20.0-44.0); MEAN CORPUSCULAR HGB CONC 33 g/dl (31.0-36.0); MEAN CORPUSCULAR VOLUME 99 fL (82-100); MONOCYTES # (AUTO) 0.5 /CMM (0.1-1.30); MONOCYTES % (AUTO) 9.9 % (2.0-12.0); NEUTROPHILS # (AUTO) 3.5 /CMM (1.8-8.9); NEUTROPHILS % (AUTO) 74.5 % (43.0-81.0); PLATELET COUNT (AUTO) 103 /CMM (150-450); WHITE BLOOD COUNT (AUTO) 4.8 K/uL (4.3-11.0)
[2019-12-11 03:02] LABS: ALBUMIN 3.6 g/dL (3.4-5.0); BILIRUBIN,DIRECT 0.1 mg/dL (0.0-0.2); BILIRUBIN,TOTAL 0.4 mg/dL (0.2-1.0); CALCIUM, SERUM 7.5 mg/dL (8.5-10.1); POTASSIUM 5.5 mmol/L (3.5-5.1); TOTAL PROTEIN, SERUM 7.6 g/dL (6.4-8.2)
[2019-12-11 03:05] LABS: CREATININE 11.9 mg/dL (0.6-1.3)
--- NOTE | 2019-12-11 03:22 | NUR ---
XRAY AT BEDSIDE.
--- NOTE | 2019-12-11 04:04 | NUR ---
PATIENT IS IN PAIN, MD NOTIFIED. Addendum: 12/11/19 at 0417 by NICK C/O OF MID EPIGASTRIC PAIN.
[2019-12-11] MEDS ORDERED: MORPHINE SULFATE INJ 2 MG/ML DISP.SYRIN ONE (04:12)
[2019-12-11] MEDS ORDERED: CLONIDINE HCL 0.1 MG TABLET ONE (04:30)
[2019-12-11] MEDS ORDERED: CLONIDINE HCL 0.1 MG TABLET PO ONE (04:30)
[2019-12-11] MEDS ORDERED: MORPHINE SULFATE INJ 2 MG/ML DISP.SYRIN IV ONE (04:30)
--- NOTE | 2019-12-11 04:53 | NUR ---
PATIENT IS CURRENTLY ASLEEP. EASILY AROUSABLE THROUGH TACTILE AND VERBAL STIMULI. NO SOB. BREATHING EVENLY AND UNLABORED ON ROOM AIR. SIDE RAILS ARE UP FOR SAFETY. CALL LIGHT WITHIN REACH. CONNECTED TO MONITOR.
--- NOTE | 2019-12-11 05:12 | NUR ---
PATIENT'S BLOOD PRESSURE IS 218/101, IS NOTIFIED.
--- NOTE | 2019-12-11 05:20 | NUR ---
MEDICATION, PROCARDIAC XL IS NOT AVAILABLE IN THE EMERGENCY DEPT. NURSING DIRECTOR PHONE IS NOTIFIED.
[2019-12-11] MEDS ORDERED: ONDANSETRON HCL/PF 4 MG/2 ML VIAL IVP PRN (05:30)
[2019-12-11] MEDS ORDERED: NIFEdipine XL 60 MG TAB PO SCH (05:30)
[2019-12-11] MEDS ORDERED: Z GUARD REMEDY 2 OZ OINT TP PRN (05:30)
[2019-12-11] MEDS ORDERED: ACETAMINOPHEN 325 MG TABLET PO PRN (05:30)
[2019-12-11] MEDS ORDERED: ZOLPIDEM TARTRATE 5 MG TABLET PO PRN (05:30)
[2019-12-11] MEDS ORDERED: NIFEdipine XL 60 MG TAB PO ONE (05:40)
[2019-12-11] MEDS ORDERED: NIFEdipine XL (30MG) 30 MG TAB PO ONE (05:40)
--- NOTE | 2019-12-11 05:54 | NUR ---
TRIED CALLING FOR REPORT, STAFF STATES NURSE IS BUSY WITH ANOTHER PATIENT AT THE MOMENT, STATES WILL CALL BACK.
--- NOTE | 2019-12-11 06:19 | NUR ---
REPORT GIVEN TO JUAN STRE[address] FOR FRANSICO.
--- NOTE | 2019-12-11 06:30 | NUR ---
BINDERY CHIEF NOTES PATIENT ARRIVED TO THE UNIT AT 0630 VIA ACLS PROTOCOLS. ON AUTO DEALERSHIP PORTER, SINUS 80'S.ON ROOM AIR, WITH NO SIGNS OF SOB NOTED AT THIS TIME, WITH EVEN NON-LABORED BREATHING, AND 100% SPO2. IV ACCESS INTACT AND PATENT, SALINE LOCK ON RIGHT UPPER ARM, 20 GAUGE. PATIENT REFUSED TO CHECK INSIDE OF PURSE, CHARGE NURSE AWARE. PROVIDED COMFORT MEASURES TO PATIENT. SAFETY PRECAUTIONS IN PLACE, WITH BED LOCKED, BED ALARM ON, BILATERAL SIDE RAILS UP, AND CALL LIGHT WITHIN EASY REACH OF THE PATIENT. WILL ENDORSE PLAN OF CARE TO UPCOMING DAYSHIFT NURSE.
--- NOTE | 2019-12-11 06:32 | NUR ---
PATIENT IS TAKEN UP TO ADMITING ROOM FOR FRANSICO.
[2019-12-11] MEDS: SEVELAMER CARBONATE 800 MG TABLET PO SCH ×3 (07:47→18:06)
[2019-12-11] MEDS: LEVOTHYROXINE SODIUM 50 MCG TABLET PO SCH (07:47)
[2019-12-11] MEDS: METOCLOPRAMIDE HCL 10 MG TABLET PO SCH ×4 (07:48→23:08)
[2019-12-11] MEDS: PANTOPRAZOLE 40 MG TABLET.DR PO SCH (07:48)
[2019-12-11 08:00] VITALS: BP 193/94
--- NOTE | 2019-12-11 08:00 | NUR ---
MS/RN Opening Note Received patient in bed, AO x 3-4, able to responds all stimuli. Pt c/o pain on abdomen, given morphine 2 mg as ordered. Skin is warm to touch, intact IV site saline lock. Took all scheduled meds with compliance. Respiratory even and unlabored in room air. Keep bed in lock with elevated HOB for secure airway, call light within reach, will continue to monitor.
[2019-12-11] MEDS ORDERED: CLONIDINE HCL 0.2 MG TABLET PO SCH (09:00)
[2019-12-11] MEDS ORDERED: LIDOCAINE 5% (PATCH) 1 EA PATCH TP PRN (09:00)
[2019-12-11] MEDS: hydrALAZINE HCL 25 MG TABLET PO SCH ×4 (09:19→23:08)
[2019-12-11] MEDS: POLYETHYLENE GLYCOL 3350 17 GM POWD.PACK PO SCH (09:19)
[2019-12-11] MEDS: CALCITRIOL 0.25 MCG CAPSULE PO SCH (09:19)
[2019-12-11] MEDS: ASPIRIN EC 81 MG TABLET.DR PO SCH (09:20)
[2019-12-11] MEDS: CLONIDINE HCL 0.1 MG TABLET PO SCH ×3 (09:20→17:00)
[2019-12-11] MEDS: NIFEdipine XL (30MG) 30 MG TAB PO SCH (09:21)
[2019-12-11] MEDS: CARVEDILOL 12.5 MG TABLET PO SCH ×2 (09:21→17:00)
[2019-12-11] MEDS: FOLIC ACID 1 MG TABLET PO SCH (09:21)
[2019-12-11] MEDS: ESCITALOPRAM OXALATE (10 MG) 10 MG TABLET PO SCH (09:21)
[2019-12-11] MEDS: BISACODYL (5 MG) 5 MG TABLET.DR PO SCH (09:22)
[2019-12-11] MEDS: TOPIRAMATE 100 MG TABLET PO SCH ×2 (09:34→23:08)
[2019-12-11] MEDS: MORPHINE SULFATE INJ 2 MG/ML DISP.SYRIN IV PRN ×3 (09:35→17:30)
[2019-12-11] MEDS: APIXABAN 5 MG TABLET PO SCH ×2 (09:35→17:00)
[2019-12-11] MEDS ORDERED: hydrALAZINE HCL IV 20 MG VIAL IV PRN (10:00)
[2019-12-11] MEDS ORDERED: ALBUTEROL FS 2.5 MG/0.5 ML VIAL.NEB NEB PRN (13:30)
[2019-12-11] MEDS ORDERED: CEFTRIAXONE 1 G VIAL IM SCH (15:30)
[2019-12-11 16:00] VITALS: BP 112/61
[2019-12-11] MEDS: CEFTRIAXONE 1 G in IV D5W 50 ML IV SCH (16:17)
--- NOTE | 2019-12-11 17:00 | NUR ---
Patient going have HD, bp 112/72, p-100, and Hbg 7.2, will hold Eliquis and bp meds.
--- NOTE | 2019-12-11 17:00 | NUR ---
Patient myles devine KEM, bp 112/72, p-2100 Addendum: 12/11/19 at 1808 by DEVAN MONAHAN RN Error
--- NOTE | 2019-12-11 18:45 | NUR ---
MS/RN Closing note Patient in bed, sitting comfortably, does no c/o pain or any discomfort at this time. Pt signed consent for HD and blood transfusion. Skin is warm to touch, kept clean/dry, intact IV site. Respiratory even and unlabored in room air. Keep bed in lock with elevated HOB for secure airway and aspiration precaution. Call light within reach, will endorse awake overnight counselor.
--- NOTE | 2019-12-11 19:25 | NUR ---
MS RN NOTES PATIENT IN BED SITTING UP, ALERT AND ORIENTED X 3. PATIENT ON ROOM AIR, NO RESPIRATORY DISTRESS NOTED AT THIS TIME, WITH EVEN NON-LABORED BREATHING. AWAITING FOR HEMODIALYSIS TO BEGIN. IV ACCESS INTACT AND PATENT. SKIN WARM AND DRY TO TOUCH. PROVIDED COMFORT MEASURE TO PATIENT. SAFETY PRECAUTIONS IMPLEMENTED WITH BED LOCKED, BED IN THE LOWEST POSITION, BILATERAL SIDE RAILS UP, AND CALL LIGHT WITHIN EASY REACH OF PATIENT. WILL CONTINUE TO MONITOR PATIENT.
--- NOTE | 2019-12-11 19:30 | NUR ---
MS RN NOTES PATIENT STARTED HEMODIALYSIS. DOUGH SHEETER AT BEDSIDE. WILL CONTINUE TO MONITOR PATIENT.
[2019-12-11 20:00] VITALS: BP 131/77
[2019-12-11] MEDS ORDERED: diphenhydrAMINE HCL 50 MG/ML VIAL IV ONE (20:00)
[2019-12-11 23:00] VITALS: BP 153/78
--- NOTE | 2019-12-11 23:00 | NUR ---
MS RN NOTES PATIENT FINISHED HEMODIALYSIS, 3.5 LITERS OUT. ADMINISTERED SCHEDULE MEDICATIONS ORDERED. WILL CONTINUE TO MONITOR PATIENT.
[2019-12-12] VITALS (13 sets, daily range): BP systolic 128–157; BP diastolic 65–90
[2019-12-12] MEDS: MORPHINE SULFATE INJ 2 MG/ML DISP.SYRIN IV PRN ×5 (00:13→20:34)
--- NOTE | 2019-12-12 00:13 | NUR ---
MS RN NOTES PATIENT COMPLAINING OF 9/10 ABDOMEN PAIN, MOANING AND GRASPING SITE. BLOOD PRESSURE 135/85 HEART RATE 85. ADMINISTERED PRN MORPHINE 2mg ORDERED. WILL REASSESS PATIENT PAIN LEVEL AND CONTINUE TO MONITOR.
--- NOTE | 2019-12-12 04:35 | NUR ---
MS RN NOTES PATIENT COMPLAINING OF 9/10 ABDOMEN PAIN, AND REQUESTING PAIN MEDICATION. BLOOD PRESSURE 148/86 HEART RATE 83. ADMINISTERED PRN MORPHINE 2mg ORDERED. WILL REASSESS PATIENT PAIN LEVEL AND CONTINUE TO MONITOR.
--- NOTE | 2019-12-12 06:35 | NUR ---
MS RN NOTES PATIENT IN BED RESTING, AWAKEN BY NAME AND LIGHT TOUCH. ON ROOM AIR WITH NO SIGNS OF RESPIRATORY DISTRESS AT THIS TIME, WITH NON-LABORED BREATHING. PATIENT IV ACCESS INTACT AND PATENT. MET ALL OF PATIENT'S NEEDS AND ADMINISTERED ALL SCHEDULE MEDICATIONS. PROVIDED COMFORT MEASURES TO PATIENT. SAFETY PRECAUTIONS IN PLACE WITH THE BED IN LOWEST LOCKED POSITION, BED LOCKED, BILATERAL SIDE RAILS UP, BED ALARM ON, AND CALL LIGHTS WITHIN REACH. WILL ENDORSE PLAN OF CARE TO UPCOMING DAYSHIFT NURSE.
[2019-12-12 07:13] LABS: BASOPHILS % (AUTO) 0.6 % (0.0-2.0); EOSINOPHILS % (AUTO) 8.7 % (0.0-6.0); HEMATOCRIT 21 % (33-45); LYMPHOCYTES # (AUTO) 0.3 /CMM (0.8-4.8); MEAN CORPUSCULAR HGB CONC 33 g/dl (31.0-36.0); MEAN CORPUSCULAR VOLUME 98 fL (82-100); MONOCYTES # (AUTO) 0.5 /CMM (0.1-1.30); MONOCYTES % (AUTO) 13.6 % (2.0-12.0); NEUTROPHILS # (AUTO) 2.6 /CMM (1.8-8.9); NEUTROPHILS % (AUTO) 68.1 % (43.0-81.0); PLATELET COUNT (AUTO) 112 /CMM (150-450); RED BLOOD CELL COUNT(AUTO) 2.17 MIL/uL (4.0-5.2); WHITE BLOOD COUNT (AUTO) 3.9 K/uL (4.3-11.0)
[2019-12-12 07:41] LABS: CALCIUM, SERUM 8.2 mg/dL (8.5-10.1); MAGNESIUM 2.1 mg/dL (1.8-2.4); PHOSPHORUS 6.1 mg/dL (2.5-4.9); POTASSIUM 4.5 mmol/L (3.5-5.1)
--- NOTE | 2019-12-12 08:00 | NUR ---
MS/RN Opening note Received patient in bed, AO x 3, able to responds all stimuli. C/O ABD pain and given morphine, Hgb level 7.0 this morning and noticed bleeding from scratched on cheek, will hold Eliquis. Skin is warm to touch, keep clean/dry, intact IV site. Respiratory even and unlabored in room air. keep bed in lock with elevated HOB for secure airway and aspiration repercussion. Call light within reach, will continue to monitor.
[2019-12-12] MEDS: SEVELAMER CARBONATE 800 MG TABLET PO SCH ×3 (08:04→17:27)
[2019-12-12] MEDS: PANTOPRAZOLE 40 MG TABLET.DR PO SCH (08:05)
[2019-12-12] MEDS: LEVOTHYROXINE SODIUM 50 MCG TABLET PO SCH (08:05)
[2019-12-12] MEDS: METOCLOPRAMIDE HCL 10 MG TABLET PO SCH ×4 (08:05→21:39)
[2019-12-12] MEDS: NIFEdipine XL (30MG) 30 MG TAB PO SCH (08:47)
[2019-12-12] MEDS: CARVEDILOL 12.5 MG TABLET PO SCH ×2 (08:48→17:00)
[2019-12-12] MEDS: FOLIC ACID 1 MG TABLET PO SCH (08:48)
[2019-12-12] MEDS: BISACODYL (5 MG) 5 MG TABLET.DR PO SCH (08:48)
[2019-12-12] MEDS: TOPIRAMATE 100 MG TABLET PO SCH ×2 (08:48→21:39)
[2019-12-12] MEDS: CALCITRIOL 0.25 MCG CAPSULE PO SCH (08:48)
[2019-12-12] MEDS: hydrALAZINE HCL 25 MG TABLET PO SCH ×4 (08:49→21:44)
[2019-12-12] MEDS: ESCITALOPRAM OXALATE (10 MG) 10 MG TABLET PO SCH (08:49)
[2019-12-12] MEDS: CLONIDINE HCL 0.1 MG TABLET PO SCH ×3 (08:49→17:00)
[2019-12-12] MEDS: POLYETHYLENE GLYCOL 3350 17 GM POWD.PACK PO SCH (08:50)
[2019-12-12] MEDS: APIXABAN 5 MG TABLET PO SCH ×2 (08:50→17:00)
[2019-12-12] MEDS: ASPIRIN EC 81 MG TABLET.DR PO SCH (08:51)
[2019-12-12] MEDS: CEFTRIAXONE 1 G in IV D5W 50 ML IV SCH (16:52)
[2019-12-12] MEDS ORDERED: diphenhydrAMINE HCL 50 MG/ML VIAL IV ONE (17:00)
--- NOTE | 2019-12-12 18:30 | NUR ---
MS/RN Closing note Patient in bed, finished hemodialysis and post blood transfusion. Given education before start transfusion, and no s/s of adverse reaction observed;No fever, skin rash or itchiness. Skin is warm to touch, kept clean/dry, intact IV site and AV shunt. Pt consumed almost 100% and took all due mrds with compliance. Respiratory even and unlabored in room air. Keep bed in locked with elevated HOB for secure airway and aspiration precaution, call light within reach, will endorse night guard.
--- NOTE | 2019-12-12 19:19 | NUR ---
MS RN NOTES PATIENT IN BED SITTING UP, ALERT AND ORIENTED X 3. PATIENT ON ROOM AIR, NO RESPIRATORY DISTRESS NOTED AT THIS TIME, WITH EVEN NON-LABORED BREATHING, AND NO SOB NOTED. IV ACCESS INTACT AND PATENT. SKIN WARM AND DRY TO TOUCH. PROVIDED COMFORT MEASURE TO PATIENT. SAFETY PRECAUTIONS IMPLEMENTED WITH BED LOCKED, BED IN THE LOWEST POSITION, BILATERAL SIDE RAILS UP, AND CALL LIGHT WITHIN EASY REACH OF PATIENT. WILL CONTINUE TO MONITOR PATIENT.
--- NOTE | 2019-12-12 22:55 | NUR ---
MS RN NOTES REPORT GIVEN TO YENIFER NESS. PATIENT ON ROOM AIR, WITH NO RESPIRATORY DISTRESS AT THIS TIME. PROVIDED COMFORT MEASURES. SAFETY PRECAUTIONS IMPLEMENTED BED LOCKED, BED IN THE LOWEST POSITION, AND CALL LIGHT WITHIN EASY REACH OF PATIENT.
--- NOTE | 2019-12-12 22:58 | NUR ---
MS/RN NOTES: RECEIVED REPORT FROM YENIFER MARTINEZ FOR FRANSICO. PT IS STABLE AND SLEEPING COMFORTABLY IN BED AT THIS TIME. WILL KEEP MONITORING PT ACCORDINGLY.
[2019-12-13] MEDS: MORPHINE SULFATE INJ 2 MG/ML DISP.SYRIN IV PRN ×2 (02:12→06:13)
--- NOTE | 2019-12-13 02:17 | NUR ---
MS/RN NOTES: PT COMPLAINED OF PAIN LEVEL 8-9 OUT OF 10. VS TAKEN. BP: 155/88 HR:81. ADMINISTERED 2MG MORPHINE ORDERED FOR PAIN VIA IV. WILL KEEP MONITORING ACCORDINGLY.
--- NOTE | 2019-12-13 06:14 | NUR ---
MS/RN NOTES: PT COMPLAINED OF PAIN LEVEL 9 OUT OF 10. VS TAKEN. BP: 159/90 HR: 94. ADMINISTERED 2MG MORPHINE ORDERED FOR PAIN VIA IV. WILL KEEP MONITORING ACCORDINGLY.
--- NOTE | 2019-12-13 06:48 | NUR ---
MS/RN CLOSING NOTES: PATIENT IN BED RESTING, REMAINS ALERT AND ORIENTED X 3. PATIENT ON ROOM AIR, NO RESPIRATORY DISTRESS NOTED AT THIS TIME, WITH EVEN NON-LABORED BREATHING, AND NO SOB NOTED. IV ACCESS INTACT AND PATENT. PAIN MANAGED THROUGHOUT THE SHIFT. SAFETY PRECAUTIONS IMPLEMENTED WITH BED LOCKED, BED IN THE LOWEST POSITION, BILATERAL SIDE RAILS UP, AND CALL LIGHT WITHIN EASY REACH OF PATIENT. ALL NEEDS ATTENDED AND MET. WILL ENDORSE TO DAY SHIFT FOR FRANSICO.
[2019-12-13 08:00] VITALS: BP 172/107
[2019-12-13] MEDS: LEVOTHYROXINE SODIUM 50 MCG TABLET PO SCH (08:26)
[2019-12-13] MEDS: SEVELAMER CARBONATE 800 MG TABLET PO SCH ×2 (08:27→13:34)
[2019-12-13] MEDS: ASPIRIN EC 81 MG TABLET.DR PO SCH (08:30)
[2019-12-13] MEDS: hydrALAZINE HCL 25 MG TABLET PO SCH ×2 (08:30→13:00)
[2019-12-13] MEDS: ESCITALOPRAM OXALATE (10 MG) 10 MG TABLET PO SCH (08:30)
[2019-12-13] MEDS: TOPIRAMATE 100 MG TABLET PO SCH (08:31)
[2019-12-13] MEDS: BISACODYL (5 MG) 5 MG TABLET.DR PO SCH (08:31)
[2019-12-13] MEDS: NIFEdipine XL (30MG) 30 MG TAB PO SCH (08:31)
[2019-12-13] MEDS: CLONIDINE HCL 0.1 MG TABLET PO SCH ×2 (08:31→13:34)
[2019-12-13] MEDS: FOLIC ACID 1 MG TABLET PO SCH (08:31)
[2019-12-13] MEDS: CALCITRIOL 0.25 MCG CAPSULE PO SCH (08:31)
[2019-12-13] MEDS: CARVEDILOL 12.5 MG TABLET PO SCH (08:31)
[2019-12-13] MEDS: POLYETHYLENE GLYCOL 3350 17 GM POWD.PACK PO SCH (08:32)
[2019-12-13] MEDS: APIXABAN 5 MG TABLET PO SCH (08:32)
[2019-12-13] MEDS: METOCLOPRAMIDE HCL 10 MG TABLET PO SCH ×2 (08:32→12:00)
[2019-12-13] MEDS: PANTOPRAZOLE 40 MG TABLET.DR PO SCH (08:33)
[2019-12-13 08:35] LABS: BASOPHILS % (AUTO) 0.4 % (0.0-2.0); EOSINOPHILS % (AUTO) 6.2 % (0.0-6.0); HEMATOCRIT 25 % (33-45); HEMOGLOBIN 8.2 g/dL (11.5-14.8); LYMPHOCYTES # (AUTO) 0.5 /CMM (0.8-4.8); LYMPHOCYTES % (AUTO) 10.2 % (20.0-44.0); MEAN CORPUSCULAR HGB CONC 33 g/dl (31.0-36.0); MEAN CORPUSCULAR VOLUME 98 fL (82-100); MONOCYTES # (AUTO) 0.6 /CMM (0.1-1.30); MONOCYTES % (AUTO) 11.9 % (2.0-12.0); NEUTROPHILS # (AUTO) 3.5 /CMM (1.8-8.9); NEUTROPHILS % (AUTO) 71.3 % (43.0-81.0); PLATELET COUNT (AUTO) 120 /CMM (150-450); RED BLOOD CELL COUNT(AUTO) 2.55 MIL/uL (4.0-5.2); WHITE BLOOD COUNT (AUTO) 4.8 K/uL (4.3-11.0)
[2019-12-13 11:33] LABS: CALCIUM, SERUM 8.5 mg/dL (8.5-10.1); POTASSIUM 4.8 mmol/L (3.5-5.1)
[2019-12-13 11:38] LABS: CREATININE 7.7 mg/dL (0.6-1.3)
--- NOTE | 2019-12-13 12:50 | NUR ---
INFORMED PATIENT THAT PRN MORPHINE D/C BY . PATIENT WANTS TO LEAVE AMA. ENCOURAGED PATIENT TO STAY ; SHE WILL HAVE HD TODAY.
--- NOTE | 2019-12-13 13:15 | NUR ---
BEDSIDE HD STARTED. PATIENT AWAKE , VS ARE STABLE .
[2019-12-13 13:34] VITALS: BP 164/87
--- NOTE | 2019-12-13 15:10 | NUR ---
HD done; output 3500 ml
--- NOTE | 2019-12-13 16:00 | NUR ---
Patient awake and oriented x3 , willing to leave AMA. Again education provided and risks explained. Patient still refusing to stay. MD notified . Patient sighed AMA form and refused to receive d/c instructions and education. IV line removed , no bleeding noted. ID wrist bands removed.
== END 2019-12-13 16:58 | disposition left against medical advice (07) | DRG 137 ==
LOC: ER 01:33 → TELE 05:18 → MED 10:54
PROVIDERS: ADMIT Nurse Practitioner Acute Care; ATTEND Nurse Practitioner Acute Care
PROC: 5A1D70Z Performance of Urinary Filtration, Intermittent, Less than 6 Hours Per Day (ICD-10-PCS; principal; 2019-12-11)
PROC: 30233P1 Transfusion of Nonautologous Frozen Red Cells into Peripheral Vein, Percutaneous Approach (ICD-10-PCS; 2019-12-12)
DX: J15.6 Pneumonia due to other Gram-negative bacteria (principal); I13.2 Hypertensive heart and chronic kidney disease with heart failure and with stage 5 chronic kidney disease, or end stage renal disease; K85.90 Acute pancreatitis without necrosis or infection, unspecified; I27.20 Pulmonary hypertension, unspecified; D68.59 Other primary thrombophilia; J90 Pleural effusion, not elsewhere classified; N18.6 End stage renal disease; E87.5 Hyperkalemia; D63.1 Anemia in chronic kidney disease; G89.29 Other chronic pain; I16.0 Hypertensive urgency; Z99.2 Dependence on renal dialysis; I50.33 Acute on chronic diastolic (congestive) heart failure; E78.5 Hyperlipidemia, unspecified; G40.909 Epilepsy, unspecified, not intractable, without status epilepticus; K21.9 Gastro-esophageal reflux disease without esophagitis; Z79.01 Long term (current) use of anticoagulants; Z86.73 Personal history of transient ischemic attack (TIA), and cerebral infarction without residual deficits; Z86.718 Personal history of other venous thrombosis and embolism; Z86.711 Personal history of pulmonary embolism; J45.909 Unspecified asthma, uncomplicated; M81.0 Age-related osteoporosis without current pathological fracture; R18.8 Other ascites; G43.909 Migraine, unspecified, not intractable, without status migrainosus; F41.9 Anxiety disorder, unspecified; F32.9 Major depressive disorder, single episode, unspecified; E05.90 Thyrotoxicosis, unspecified without thyrotoxic crisis or storm; G51.0 Bell's palsy; Z88.6 Allergy status to analgesic agent; Z88.1 Allergy status to other antibiotic agents; Z88.5 Allergy status to narcotic agent; Z91.018 Allergy to other foods; Z79.51 Long term (current) use of inhaled steroids; Z79.82 Long term (current) use of aspirin; Z79.899 Other long term (current) drug therapy; F11.11 Opioid abuse, in remission; Z86.59 Personal history of other mental and behavioral disorders; D63.8 Anemia in other chronic diseases classified elsewhere; K76.1 Chronic passive congestion of liver; I31.3 Pericardial effusion (noninflammatory); Z91.14 Patient's other noncompliance with medication regimen; Z91.013 Allergy to seafood
CPT/HCPCS: 36415; 71045-TC; 80048-TC; 80076-TC; 83690-TC; 83735-TC; 84100-TC; 84484-TC; 85025-TC; 85730-TC; 86850-TC; 86921-TC; 87081-TC; 90935-TC; 93971-TC; G0378; J0696; J1200; J2270; J7050; J7060; J8597; P9016-BL

== ENCOUNTER 2019-12-25 17:47 | Emergency (ER) | payer MEDICAID ==
[~2019-12-25] VITALS: Ht 162.6 cm; Wt 74.8 kg
--- NOTE | 2019-12-25 17:55 | NUR ---
ER PHLEB AT BEDSIDE FOR BLOOD DRAW.
[2019-12-25] MEDS ORDERED: predniSONE 20 MG TABLET PO ONE (18:00)
[2019-12-25] MEDS ORDERED: FAMOTIDINE (20 MG) 20 MG TABLET PO ONE (18:00)
[2019-12-25] MEDS ORDERED: diphenhydrAMINE HCL 25 MG CAPSULE PO ONE (18:00)
[2019-12-25] MEDS ORDERED: FAMOTIDINE/PF INJ 20 MG/2 ML VIAL IV ONE (18:17)
[2019-12-25] MEDS ORDERED: predniSONE 20 MG TABLET ONE (18:17)
[2019-12-25] MEDS ORDERED: diphenhydrAMINE HCL 50 MG/ML VIAL ONE (18:17)
[2019-12-25] MEDS ORDERED: FAMOTIDINE (20 MG) 20 MG TABLET ONE (18:19)
[2019-12-25] MEDS ORDERED: diphenhydrAMINE HCL 25 MG CAPSULE ONE (18:19)
[2019-12-25 18:41] LABS: BASOPHILS # (AUTO) 0.1 /CMM (0.0-0.2); BASOPHILS % (AUTO) 1.3 % (0.0-2.0); EOSINOPHILS % (AUTO) 5.9 % (0.0-6.0); HEMATOCRIT 23 % (33-45); HEMOGLOBIN 7.5 g/dL (11.5-14.8); LYMPHOCYTES # (AUTO) 0.6 /CMM (0.8-4.8); LYMPHOCYTES % (AUTO) 13.3 % (20.0-44.0); MEAN CORPUSCULAR HGB CONC 33 g/dl (31.0-36.0); MEAN CORPUSCULAR VOLUME 98 fL (82-100); MONOCYTES # (AUTO) 0.7 /CMM (0.1-1.30); NEUTROPHILS # (AUTO) 2.8 /CMM (1.8-8.9); NEUTROPHILS % (AUTO) 64.5 % (43.0-81.0); PLATELET COUNT (AUTO) 174 /CMM (150-450); RED BLOOD CELL COUNT(AUTO) 2.34 MIL/uL (4.0-5.2); WHITE BLOOD COUNT (AUTO) 4.4 K/uL (4.3-11.0)
[2019-12-25 18:53] LABS: ALBUMIN 3.9 g/dL (3.4-5.0); BILIRUBIN,TOTAL 0.3 mg/dL (0.2-1.0); CALCIUM, SERUM 8.4 mg/dL (8.5-10.1); POTASSIUM 5.4 mmol/L (3.5-5.1); TOTAL PROTEIN, SERUM 8.1 g/dL (6.4-8.2)
[2019-12-25 19:08] LABS: CREATININE 11.7 mg/dL (0.6-1.3)
--- NOTE | 2019-12-25 19:14 | NUR ---
ASSUMED CARE FOR PATIENT.
--- NOTE | 2019-12-25 19:15 | NUR ---
PATIENT CAME TO ER BED 15 C/O ITCHINESS ON THE LEFT ARM. PATIENT STATES, "I HAVE WELTS ON MY LEFT ARM." PATIENT IS SEEN ITCHING, REDIRECTED NOT TO SCRATCH. PATIENT HAS SMALL BUMPS ON THE LEFT ARM. PATIENT IS AAOX4. NO SOB. BREATHING EVENLY AND UNLABORED ON ROOM AIR. CONNECTED TO MONITOR.
--- NOTE | 2019-12-25 19:24 | NUR ---
TECH AT BEDSIDE FOR EKG
[2019-12-25 20:21] LABS: EOSINOPHILS % (MANUAL) 6 % (0-4); LYMPHOCYTES % (MANUAL) 14 % (16-48); MONOCYTES % (MANUAL) 11 % (0-11.0); NEUTROPHILS % (MANUAL) 69 (42-76)
--- NOTE | 2019-12-25 21:27 | NUR ---
Mich castrejon in ED - 12/25/19 at 2128 by BRI Patient discharged to home in stable condition. Written and verbal after care instructions given. Patient verbalizes understanding of instruction.pt. ambulatory with a steady gait
--- NOTE | 2019-12-25 21:28 | NUR ---
Patient given written and verbal discharge instructions. Patient verbalizes understanding of instructions. Patient is ambulatory with steady gait. Refuses offer of retirement placement. Patient given list of available shelters in surrounding area.
[2019-12-25 21:45] VITALS: BP 144/76
== END 2019-12-25 21:46 | disposition home or self-care (01) ==
LOC: ER 17:50
DX: L29.8 Other pruritus (principal); I12.0 Hypertensive chronic kidney disease with stage 5 chronic kidney disease or end stage renal disease; N18.6 End stage renal disease; D64.9 Anemia, unspecified; G51.0 Bell's palsy; G40.909 Epilepsy, unspecified, not intractable, without status epilepticus; G89.4 Chronic pain syndrome; Z99.2 Dependence on renal dialysis; Z86.73 Personal history of transient ischemic attack (TIA), and cerebral infarction without residual deficits; Z98.890 Other specified postprocedural states; Z91.018 Allergy to other foods; Z88.1 Allergy status to other antibiotic agents; Z88.5 Allergy status to narcotic agent; Z88.6 Allergy status to analgesic agent; Z79.899 Other long term (current) drug therapy; Z79.82 Long term (current) use of aspirin
CPT/HCPCS: 36415; 71045; 80053; 85025; 93005; 99285; J7512; Q0163; 87081-TC; J1200; J3490

== ENCOUNTER 2019-12-31 06:07 | Emergency (ER) | payer MEDICAID ==
[~2019-12-31] VITALS: Ht 165.1 cm; Wt 76.7 kg
--- NOTE | 2019-12-31 06:21 | NUR ---
PT AAOX4. BIBSELF C/O LEFT KNEE POPPED UANBLE TO WALK. PT PALCED ON MONITOR AND PULSE OX. VSShirley. AT BEDSIDE FOR EVAL.
[2019-12-31] MEDS ORDERED: TRAMADOL HCL 50 MG TABLET ONE (06:26)
[2019-12-31] MEDS ORDERED: TRAMADOL HCL 50 MG TABLET PO ONE (06:30)
--- NOTE | 2019-12-31 06:47 | NUR ---
xray at bedside
[2019-12-31 07:12] VITALS: BP 159/99
--- NOTE | 2019-12-31 07:12 | NUR ---
Patient discharged to home in stable condition. Written and verbal after care instructions given. Patient verbalizes understanding of instruction. Pt given crutches. Pt ambualted through E.D. using crutches. vss.
== END 2019-12-31 07:13 | disposition home or self-care (01) ==
LOC: ER 06:09
DX: S83.8X2A Sprain of other specified parts of left knee, initial encounter (principal); I12.0 Hypertensive chronic kidney disease with stage 5 chronic kidney disease or end stage renal disease; N18.6 End stage renal disease; G51.0 Bell's palsy; G40.909 Epilepsy, unspecified, not intractable, without status epilepticus; G89.4 Chronic pain syndrome; E66.01 Morbid (severe) obesity due to excess calories; F32.9 Major depressive disorder, single episode, unspecified; Z99.2 Dependence on renal dialysis; Z68.28 Body mass index [BMI] 28.0-28.9, adult; Z86.73 Personal history of transient ischemic attack (TIA), and cerebral infarction without residual deficits; Z91.018 Allergy to other foods; Z88.1 Allergy status to other antibiotic agents; Z88.6 Allergy status to analgesic agent; Z88.5 Allergy status to narcotic agent; Z79.899 Other long term (current) drug therapy; Z79.82 Long term (current) use of aspirin; W01.198A Fall on same level from slipping, tripping and stumbling with subsequent striking against other object, initial encounter; Y93.02 Activity, running; Y92.89 Other specified places as the place of occurrence of the external cause; Y99.8 Other external cause status
CPT/HCPCS: 73564-TC

== ENCOUNTER 2020-01-23 01:20 | Inpatient (IN) | payer MEDICAID ==
[~2020-01-23] VITALS: Ht 165.1 cm; Wt 93.0 kg
[~2020-01-23 01:20] MED LIST changes: -ASPI-1152 PO; +ASPI-1420 PO
[2020-01-23] MEDS ORDERED: MORPHINE SULFATE INJ 4 MG/ML DISP.SYRIN ONE (01:37)
[2020-01-23] MEDS ORDERED: ONDANSETRON HCL/PF 4 MG/2 ML VIAL ONE (01:37)
[2020-01-23] MEDS ORDERED: PIPERACILLIN /TAZOBACTAM 3.375 G VIAL IV ONE (01:37)
[2020-01-23] MEDS ORDERED: MORPHINE SULFATE INJ 2 MG/ML DISP.SYRIN IV ONE (02:00)
[2020-01-23] MEDS ORDERED: ONDANSETRON HCL/PF 4 MG/2 ML VIAL IVP ONE (02:00)
[2020-01-23] MEDS ORDERED: PIPERACILLIN /TAZOBACTAM 3.375 G in IV D5W 50 ML IV ONE (02:00)
[2020-01-23 02:12] LABS: BASOPHILS # (AUTO) 0.3 /CMM (0.0-0.2); HEMATOCRIT 25 % (33-45); HEMOGLOBIN 8.2 g/dL (11.5-14.8); LYMPHOCYTES # (AUTO) 0.3 /CMM (0.8-4.8); LYMPHOCYTES % (AUTO) 7.7 % (20.0-44.0); MEAN CORPUSCULAR HGB CONC 33 g/dl (31.0-36.0); MEAN CORPUSCULAR VOLUME 97 fL (82-100); MONOCYTES # (AUTO) 0.9 /CMM (0.1-1.30); MONOCYTES % (AUTO) 19.2 % (2.0-12.0); NEUTROPHILS # (AUTO) 2.9 /CMM (1.8-8.9); NEUTROPHILS % (AUTO) 64.2 % (43.0-81.0); PLATELET COUNT (AUTO) 163 /CMM (150-450); RED BLOOD CELL COUNT(AUTO) 2.58 MIL/uL (4.0-5.2); WHITE BLOOD COUNT (AUTO) 4.5 K/uL (4.3-11.0)
--- NOTE | 2020-01-23 02:16 | NUR ---
PATIENT CAME TO ER BIB SELF C/O UPPER ABDOMINAL PAIN. PATIENT STATES THAT SHE MISSED DIALYSIS ON THURSDAY(01/20/2020) AND HAS NOT GONE TO DIALYSIS SINCE. ALSO C/O RIGHT CHEEK W/ SWELLING AND A RED BUMP, RADIATING TO THE RIGHT EAR. PATIENT HAS A LEFT SHUNT FOR DIALYSIS FOR THURSDAY, THURSDAY, AND THURSDAY.PATIENT IS AAOX4. NO SOB. BREATHING EVENLY AND UNLABORED ON ROOM AIR. CONNECTED TO MONITOR.
[2020-01-23 02:21] LABS: ALBUMIN 3.3 g/dL (3.4-5.0); BILIRUBIN,DIRECT 0.1 mg/dL (0.0-0.2); BILIRUBIN,TOTAL 0.2 mg/dL (0.2-1.0); CALCIUM, SERUM 6.5 mg/dL (8.5-10.1); POTASSIUM 4.7 mmol/L (3.5-5.1); TOTAL PROTEIN, SERUM 7.3 g/dL (6.4-8.2)
[2020-01-23 02:23] LABS: CREATININE 11.1 mg/dL (0.6-1.3)
--- NOTE | 2020-01-23 02:24 | NUR ---
PATIENT IS TAKEN TO CT.
--- NOTE | 2020-01-23 02:34 | NUR ---
COVID SWAB SAMPLE COLLECTD AND SENT TO THE LAB.
[2020-01-23 02:43] LABS: BASOPHILS % (AUTO) 5.9 % (0.0-2.0)
[2020-01-23 02:48] LABS: BASOPHILS % (MANUAL) 1 % (0.0-2.0); EOSINOPHILS % (MANUAL) 1 % (0-4); LYMPHOCYTES % (MANUAL) 12 % (16-48); MONOCYTES % (MANUAL) 15 % (0-11.0); NEUTROPHILS % (MANUAL) 71 (42-76)
[2020-01-23] MEDS ORDERED: hydrALAZINE HCL IV 20 MG VIAL IV ONE (03:30)
[2020-01-23] MEDS ORDERED: ONDANSETRON HCL/PF 4 MG/2 ML VIAL IVP PRN (03:30)
[2020-01-23] MEDS ORDERED: TEMAZEPAM 15 MG CAPSULE PO PRN (03:30)
[2020-01-23] MEDS ORDERED: Z GUARD REMEDY 2 OZ OINT TP PRN (03:30)
[2020-01-23] MEDS ORDERED: hydrALAZINE HCL IV 20 MG VIAL ONE (03:42)
--- NOTE | 2020-01-23 04:18 | NUR ---
REPORT GIVEN TO [address] FOR FRANSICO.
--- NOTE | 2020-01-23 04:50 | NUR ---
BUSINESS REPORTING DEVELOPER NOTES RECIEVED PATIENT VIA GURHAROON. PT WAS ABLE TO AMBULATE TO BED. A/O X4. ON RA, NO SOB/ ACUTE RESPIRATORY DISTRESS NOTED. PATIENT ORIENTED TO ROOM. CALL LIGHT IS WITHIN REACH. WILL CONTINUE TO MONITOR.
--- NOTE | 2020-01-23 04:55 | NUR ---
PATIENT TAKEN TO ASSIGNED ROOM.
[2020-01-23] MEDS: MORPHINE SULFATE INJ 2 MG/ML DISP.SYRIN IV PRN ×4 (05:05→17:31)
--- NOTE | 2020-01-23 06:25 | NUR ---
CATTLE KNOCKER CLOSE NOTES PATIENT IS LAYING IN BED. A/O X4. ON RA, NO SOB/ ACUTE RESPIRATORY DISTRESS NOTED. IV IN RIGHT UPPERAM #20G IS PATENT AND INTACT. PATIENT GIVEN MORPHINE UPON ADMISSION, NO COMPLAINTS OF PAIN AT THE MOMENT. PATIENT IS AMBULATORY. BED IS IN LOWEST LOCKED POSITION WITH SIDE RAILS UP X2, SEMI FOWLERS. CALL LIGHT IS WITHIN REACH. WILL ENDORSE TO AM NURSE.
[2020-01-23 06:47] VITALS: BP 155/116
--- NOTE | 2020-01-23 07:30 | NUR ---
RN Opening note Received patient AO x 3-4, able to responds all stimuli. Patient c/o pain on abdomen and right ear, but medication does not due at this time. Skin is warm to touch, keep clean/dry, intact IV site. Respiratory even and unlabored in room air, no distress observed. Keep bed in locked with elevated HOB for ensure airway and aspiration precaution, call light within reach, will continue to monitor.
[2020-01-23] MEDS: PANTOPRAZOLE 40 MG TABLET.DR PO SCH (07:48)
[2020-01-23 08:00] VITALS: BP 159/102
[2020-01-23] MEDS: APIXABAN 5 MG TABLET PO SCH ×2 (09:08→17:29)
[2020-01-23] MEDS ORDERED: MINOXIDIL (10MG) 10 MG TABLET PO SCH (13:00)
[2020-01-23] MEDS: MINOXIDIL (2.5MG) 2.5 MG TABLET PO SCH (13:26)
[2020-01-23] MEDS: OFLOXACIN OTIC SOLN 5 ML BOTTLE RIGHT EAR SCH ×2 (15:32→20:31)
[2020-01-23 16:00] VITALS: BP 169/107
--- NOTE | 2020-01-23 18:30 | NUR ---
RN Closing note Patient in bed comfortably, remains AO x 4. Patient going have HD today evening. Skin is warm to touch, keep clean/dry, intact IV site and AV shunt on left upper arm. Respiratory even and unlabored in room air. Kept bed in locked in with elevated HOB, for ensure airway and aspiration precaution. Call light within reach, will endorse night nurse.
--- NOTE | 2020-01-23 19:30 | NUR ---
ms rn note received patient in bed. a/ox3. tolerating room air. respirations are even and unlabored. no s/s sob noted. no c/o pain at this time. in no apparent distress. iv access in garima #22 patent and saline locked. patient has a KATERIN av shunt. bed i slow and locked, hob elevated in high fowlers side rials up x2. call light within reach. will continue to monitor.
--- NOTE | 2020-01-23 19:45 | NUR ---
ms rn note obtained consent for hemodialysis. placed in chart.
[2020-01-23 20:00] VITALS: BP 169/104
--- NOTE | 2020-01-23 20:20 | NUR ---
ms rn note dialysis nurse at bedside.
[2020-01-23] MEDS: diphenhydrAMINE HCL 50 MG/ML VIAL IV PRN (20:49)
--- NOTE | 2020-01-23 20:49 | NUR ---
ms rn note administered prn benadryl 50mg per patient request to be given during hemodialysis session. will continue to monitor.
--- NOTE | 2020-01-23 23:48 | NUR ---
ms rn note - HD commercial decorator reported BP 1774/90 HR 83. 3.5 liters out. will continue to monitor.
[2020-01-24] MEDS: MORPHINE SULFATE INJ 2 MG/ML DISP.SYRIN IV PRN ×4 (00:04→20:33)
--- NOTE | 2020-01-24 00:04 | NUR ---
ms rn note administered prn morphine 4mg for pain 10/10 in right ear and abdomen. will continue to monitor.
--- NOTE | 2020-01-24 03:55 | NUR ---
GEEK SQUAD AGENTROVING CAN TENDER NOTE RECEIVED PATIENT VIA GURNEY. AMBULATED TO BED, STEADY GAIT. TOLERATING ROOM AIR. RESPIRATIONS ARE EVEN AND UNLABORED. NO S/S SOB NOTED. PATIENT STATES PAIN IS 8/10 IN BACK AND RECTUM. REFUSED TO HAVE PAIN MEDICATION, ASLO REFUSED HEATING PACK. EXTERNAL TELE MONITOR READS SINUS TACHYCARDIA HR 107. IN NO APPARENT DISTRESS. IV ACCESS IN LEFT HAND #20 PATENT AND SALINE LOCKED. ENG CATHETER 16 FR IS PRESENT, DRAINING TO GRAVITY, URINE IS YELLOW AND CLEAR. INATAL PHYSICAL ASSESSMENT COMPLETED AT THIS TIME. PATIENT REFUSED SKIN ASSESSMENT. CLIENT TECHNICAL PROFESSIONAL OBTAINED VITAL SIGNS AND COMPLETED BELONGINGS LIST. BED IS LOW AND LOCKED, HOB ELEVATED IN SEMI FOWLERS, SIDE RIALS UP X2. CALL LIGHT WITHIN REACH. WILL CONTINUE TO MONITOR. Addendum: 01/24/20 at 0433 by SHAYNA MIRANDA RN PLEASE DISREGARD NOTE ABOVE, FOR DIFFERENT PATIENT.
--- NOTE | 2020-01-24 04:33 | NUR ---
MS RN NOTE ADMINISTERED PRN MORPHINE 4 MG FOR PAIN 10/10 IN RIGHT EAR AND ABDOMEN. WILL CONTINUE TO MONITOR.
--- NOTE | 2020-01-24 05:49 | NUR ---
ms rn note called air pollution specialist CYRIL Orozco to inform him that patient blood pressure is 170/108 hr 88. also informed him med recon has not been completed and patients current home medications and dosages. telephone ordered hydralazine 10mg IV one time now. order read back noted and carried out.
[2020-01-24] MEDS ORDERED: hydrALAZINE HCL IV 20 MG VIAL IV ONE ×2 (06:00→06:30)
--- NOTE | 2020-01-24 06:14 | NUR ---
ms rn note - pharmacy note was unable to take out the hydralazine from [facility]. call night pharmacy, stated to place same order. placed same order and discontinued old order. awaiting for verification.
--- NOTE | 2020-01-24 07:30 | NUR ---
RN MED/SURG OPENING NOTES Received patient alert and oriented x4. Respiration is even and easy with no shortness of breath. Received with right facial swelling, with skin opening on right cheek with minimal yellowish discharge. Will continue to monitor. No complain of pain or discomfort at this time. Call light kept within reach for easy access.
--- NOTE | 2020-01-24 07:45 | NUR ---
ms rn closing note patient in bed. a/ox3. tolerating room air. respirations are even and unlabored. no sob noted. managed pain with morphine throughout night. no distress. iv access maintained in garima #22 patent and saline locked. bed remains slow and locked, hob elevated in high fowlers side rials up x2. call light within reach. will endorse to next shift.
[2020-01-24 08:00] VITALS: BP 154/80
[2020-01-24 08:17] LABS: BASOPHILS % (AUTO) 0.6 % (0.0-2.0); EOSINOPHILS % (AUTO) 8.6 % (0.0-6.0); HEMATOCRIT 28 % (33-45); HEMOGLOBIN 8.8 g/dL (11.5-14.8); LYMPHOCYTES # (AUTO) 0.4 /CMM (0.8-4.8); LYMPHOCYTES % (AUTO) 10.3 % (20.0-44.0); MEAN CORPUSCULAR HGB CONC 32 g/dl (31.0-36.0); MEAN CORPUSCULAR VOLUME 99 fL (82-100); MONOCYTES # (AUTO) 0.9 /CMM (0.1-1.30); MONOCYTES % (AUTO) 22.5 % (2.0-12.0); NEUTROPHILS # (AUTO) 2.4 /CMM (1.8-8.9); PLATELET COUNT (AUTO) 133 /CMM (150-450); RED BLOOD CELL COUNT(AUTO) 2.79 MIL/uL (4.0-5.2); WHITE BLOOD COUNT (AUTO) 4.1 K/uL (4.3-11.0)
[2020-01-24 08:34] LABS: CALCIUM, SERUM 7.6 mg/dL (8.5-10.1); MAGNESIUM 2.2 mg/dL (1.8-2.4); PHOSPHORUS 4.9 mg/dL (2.5-4.9); POTASSIUM 4.8 mmol/L (3.5-5.1)
[2020-01-24] MEDS: APIXABAN 5 MG TABLET PO SCH ×2 (08:34→16:35)
[2020-01-24] MEDS: PANTOPRAZOLE 40 MG TABLET.DR PO SCH (08:34)
[2020-01-24] MEDS: MINOXIDIL (2.5MG) 2.5 MG TABLET PO SCH (08:35)
[2020-01-24] MEDS: OFLOXACIN OTIC SOLN 5 ML BOTTLE RIGHT EAR SCH ×2 (08:38→20:25)
[2020-01-24 08:45] LABS: CREATININE 7.5 mg/dL (0.6-1.3)
[2020-01-24 09:37] LABS: EOSINOPHILS % (MANUAL) 5 % (0-4); LYMPHOCYTES % (MANUAL) 11 % (16-48); MONOCYTES % (MANUAL) 18 % (0-11.0); NEUTROPHILS % (MANUAL) 64 (42-76)
--- NOTE | 2020-01-24 11:00 | NUR ---
BLOCKER AND SEWER NOTES Patient remains alert and oriented x4. Respiration is even and easy with no shortness of breath. Dr Purvis came to see and examine and made aware of right facial skin opening with yellowish abscess. Dr Purvis with instructions to continue monitoring and with recommendations for plastic surgeon consultation. All needs attended to. Kept safe and comfortable at all times.
[2020-01-24] MEDS: NEOMY SULF/BACITRAC ZN/POLY 15 GM TUBE TP SCH (15:26)
[2020-01-24 16:00] VITALS: BP 152/91
[2020-01-24] MEDS ORDERED: PIPERACILLIN /TAZOBACTAM 3.375 G in IV D5W 50 ML IV SCH (18:00)
[2020-01-24] MEDS: diphenhydrAMINE HCL 50 MG/ML VIAL IV PRN (18:14)
[2020-01-24] MEDS: hydrALAZINE HCL IV 20 MG VIAL IV PRN (18:17)
[2020-01-24] MEDS ORDERED: DAPTOMYCIN 500 MG in IV NS 0.9% 50 ML IV SCH (18:30)
--- NOTE | 2020-01-24 19:30 | NUR ---
ms rn opening note received patient in bed. a/ox3. tolerating room air. respirations are even and unlabored. no s/s sob. c/o pain, informed her i will need the lead android developer to obtain vitals. in no apparent distress. iv access in SALBADOR #22 patent and saline locked. bed is slow and locked, hob elevated in high fowlers side rials up x2. call light within reach. will continue to monitor.
--- NOTE | 2020-01-24 19:37 | NUR ---
HUMAN RESOURCES BENEFITS SPECIALIST CLOSING NOTE Patient remains alert, oriented x4. Verbally responsive and able to make needs known. Respiration is even and easy with no shortness of breath. All due medications given as ordered with no side effects. New antibiotics ordered by MD, will endorse to next shift. Hemodyalisis done as scheduled. Patient in stable condition. No complain of pain or discomfort at this time.
--- NOTE | 2020-01-24 19:55 | NUR ---
MS RN NOTE ADMINISTERED CUBICIN LATE D/T HEMODIALYSIS BEING PERFORMED. CUBICIN GIVEN AFTER HD. WILL CONTINUE TO MONITOR.
[2020-01-24 20:00] VITALS: BP 187/107
[2020-01-24 20:20] VITALS: BP 187/105
[2020-01-24] MEDS: PIPERACILLIN /TAZOBACTAM 3.375 G in IV D5W 50 ML IV SCH (20:25)
[2020-01-24] MEDS: MUPIROCIN OINT 2% 22 GM TUBE NS SCH ×2 (20:25→20:34)
--- NOTE | 2020-01-24 20:50 | NUR ---
ms rn note called microelectronics assembler , Dr. ruiz to inform him patient completed HD and still has a high blood pressure. 187/105. med recon was not completed and patient has multiple blood pressure medication. MD inform he will review the med recon. will continue to monitor.
[2020-01-24] MEDS ORDERED: CLONIDINE HCL 0.1 MG TABLET PO PRN (21:00)
[2020-01-24] MEDS ORDERED: CARVEDILOL 25 MG TABLET PO SCH (21:00)
[2020-01-24] MEDS ORDERED: LIDOCAINE 5% (PATCH) 1 EA PATCH TP PRN (21:00)
[2020-01-24] MEDS ORDERED: CLONIDINE HCL 0.2 MG TABLET PO SCH (21:00)
[2020-01-24] MEDS: METOCLOPRAMIDE HCL 10 MG TABLET PO SCH (21:40)
[2020-01-24] MEDS: hydrALAZINE HCL 25 MG TABLET PO SCH (21:40)
--- NOTE | 2020-01-24 21:50 | NUR ---
ms rn note - pharmacy was not able to remove coreg 25mg and clonidine 0.2mg from omni cell d/t those specific dosages not available. rentered ordered with same med , dosage, route, and frequency but using the dosages available in our omni cell to allow removal.
[2020-01-24] MEDS: CARVEDILOL 12.5 MG TABLET PO SCH (22:19)
[2020-01-24] MEDS: CLONIDINE HCL 0.1 MG TABLET PO SCH (22:19)
--- NOTE | 2020-01-25 | NUR ---
MS RN NOTE PATIENT WAS MADE AWARE TO NPO STATUS. NPO SIGN PLACED AT DOORWAY. PATIENT DID NOT ALLOW ME TO THROW AWAY FOOD. ASKED IF I CAN TAKE IT TO PATIENT NUTRITION ROOM WITH A IDENTIFICATION STICKER, STATED NO. ASKED TO PLACE HER FOOD ON OPPOSITE SIDE OF ROOM, PATIENT STATED OK. MOVED FOOD AND DRINK TO OTHER SIDE OF ROOM. PATIENT ACKNOWLEDGED THAT SHE IS NPO STATUS AND UNDERSTANDS NOT TO EAT OR DRINK. WILL CONTINUE TO MONITOR.
[2020-01-25] MEDS: PIPERACILLIN /TAZOBACTAM 3.375 G in IV D5W 50 ML IV SCH ×3 (01:22→11:56)
[2020-01-25] MEDS ORDERED: ALBUTEROL FS 2.5 MG/3 ML VIAL.NEB NEB PRN (01:30)
[2020-01-25] MEDS: MORPHINE SULFATE INJ 2 MG/ML DISP.SYRIN IV PRN ×2 (04:19→10:53)
--- NOTE | 2020-01-25 04:19 | NUR ---
ms rn note administered prn morphine 4mg for pain 10/10 in right ear/cheek and abdominal pain. will continue to monitor.
[2020-01-25] MEDS: CLONIDINE HCL 0.1 MG TABLET PO SCH ×3 (05:00→05:49)
--- NOTE | 2020-01-25 06:15 | NUR ---
ms rn note - s/p fall patient had unwitnessed fall. i the RN heard the fall from outside of the room and the patient stating "ouch". once going into the room the patient was standing out. assisted to chair at bedside. asked patient if she was trying to get out of bed and fell. patient stated she was asleep and fell out of bed. bed was in lowest position and locked, hob levated in high fowlers, side rials up x2. asked patient if she hit her head, stated no, i fell on my right elbow, and my left knee hurts. stated im going to call the doctor and i need to get vital signs. fleet service manager tried to obtain vital signs but patient refused d/t pain in right elbow and forearm. can not take vitals on left arm d/t AV shunt for HD. called commissions specialist CYRIL High to inform him of event and findings. stated to order xr for right elbow and forearm as well as xr for left knee. orders read back noted and carried out. family informed, message was left on answering machine for jesus kiran, mother of patient. Addendum: 01/25/20 at 0726 by SHAYNA MIRANDA RN charge nurse made aware of event.
[2020-01-25] MEDS ORDERED: LEVOTHYROXINE SODIUM 50 MCG TABLET PO SCH (07:00)
--- NOTE | 2020-01-25 07:18 | NUR ---
ms rn closing note patient in bed. a/ox3. tolerating room air. no respiratory distress. no current distress. iv removed when patient fell. bed remain slow and locked, hob elevated in high fowlers side rials up x2. call light within reach. will endorse to next shift.
--- NOTE | 2020-01-25 07:23 | NUR ---
MS RN OPENING NOTES RECEIVED PT ASLEEP IN BED WITH HOB ELEVATED, EASILY AWAKENS. A/OX4. ABLE TO MAKE NEEDS KNOWN, DENIES PAIN OR ANY DISCOMFORTS AT THIS TIME. ON ROOM AIR, BREATHING EVEN AND UNLABORED. LEFT ARM AV SHUNT IN PLACE WITH POSITIVE BRUIT AND SHRILL NOTED. SAFETY PRECAUTIONS IN PLACE; BED LOCKED AND IN IN LOW POSITION, SIDE RAILS X2 AND CALL LIGHT WITHIN REACH. WILL CONT TO MONITOR PT ACCORDINGLY.
[2020-01-25] MEDS ORDERED: PANTOPRAZOLE 40 MG TABLET.DR PO SCH (07:30)
[2020-01-25] MEDS: METOCLOPRAMIDE HCL 10 MG TABLET PO SCH ×2 (07:30→11:56)
[2020-01-25 08:00] VITALS: BP 165/92
[2020-01-25] MEDS: SEVELAMER CARBONATE 800 MG TABLET PO SCH ×2 (08:09→12:09)
[2020-01-25] MEDS: hydrALAZINE HCL IV 20 MG VIAL IV PRN (08:45)
[2020-01-25 08:58] LABS: BASOPHILS % (AUTO) 0.6 % (0.0-2.0); EOSINOPHILS % (AUTO) 8.8 % (0.0-6.0); HEMATOCRIT 26 % (33-45); HEMOGLOBIN 8.4 g/dL (11.5-14.8); LYMPHOCYTES # (AUTO) 0.4 /CMM (0.8-4.8); LYMPHOCYTES % (AUTO) 10.4 % (20.0-44.0); MEAN CORPUSCULAR HGB CONC 32 g/dl (31.0-36.0); MEAN CORPUSCULAR VOLUME 98 fL (82-100); MONOCYTES # (AUTO) 0.9 /CMM (0.1-1.30); MONOCYTES % (AUTO) 21.8 % (2.0-12.0); NEUTROPHILS # (AUTO) 2.4 /CMM (1.8-8.9); NEUTROPHILS % (AUTO) 58.4 % (43.0-81.0); PLATELET COUNT (AUTO) 122 /CMM (150-450); RED BLOOD CELL COUNT(AUTO) 2.68 MIL/uL (4.0-5.2); WHITE BLOOD COUNT (AUTO) 4.1 K/uL (4.3-11.0)
[2020-01-25] MEDS ORDERED: TOPIRAMATE 100 MG TABLET PO SCH (09:00)
[2020-01-25] MEDS ORDERED: APIXABAN 5 MG TABLET PO SCH (09:00)
[2020-01-25] MEDS ORDERED: FOLIC ACID 1 MG TABLET PO SCH (09:00)
[2020-01-25] MEDS ORDERED: BISACODYL (5 MG) 5 MG TABLET.DR PO SCH (09:00)
[2020-01-25] MEDS ORDERED: ASPIRIN EC 81 MG TABLET.DR PO SCH (09:00)
[2020-01-25] MEDS: hydrALAZINE HCL 25 MG TABLET PO SCH ×2 (09:00→12:09)
[2020-01-25] MEDS: CARVEDILOL 12.5 MG TABLET PO SCH (09:00)
[2020-01-25] MEDS: MINOXIDIL (2.5MG) 2.5 MG TABLET PO SCH (09:00)
[2020-01-25] MEDS ORDERED: CALCITRIOL 0.25 MCG CAPSULE PO SCH (09:00)
[2020-01-25] MEDS ORDERED: NIFEdipine XL (30MG) 30 MG TAB PO SCH (09:00)
[2020-01-25] MEDS ORDERED: POLYETHYLENE GLYCOL 3350 17 GM POWD.PACK PO SCH (09:00)
[2020-01-25] MEDS ORDERED: ESCITALOPRAM OXALATE (10 MG) 10 MG TABLET PO SCH (09:00)
[2020-01-25 09:03] LABS: CALCIUM, SERUM 8.3 mg/dL (8.5-10.1); CREATININE 6.9 mg/dL (0.6-1.3); MAGNESIUM 2.1 mg/dL (1.8-2.4); PHOSPHORUS 5.3 mg/dL (2.5-4.9); POTASSIUM 5.1 mmol/L (3.5-5.1)
[2020-01-25] MEDS: MUPIROCIN OINT 2% 22 GM TUBE NS SCH ×2 (09:18→09:19)
[2020-01-25] MEDS: NEOMY SULF/BACITRAC ZN/POLY 15 GM TUBE TP SCH (09:24)
[2020-01-25] MEDS: OFLOXACIN OTIC SOLN 5 ML BOTTLE RIGHT EAR SCH (09:24)
[2020-01-25 10:33] LABS: EOSINOPHILS % (MANUAL) 2 % (0-4); LYMPHOCYTES % (MANUAL) 17 % (16-48); MONOCYTES % (MANUAL) 13 % (0-11.0); NEUTROPHILS % (MANUAL) 68 (42-76)
--- NOTE | 2020-01-25 10:59 | NUR ---
RN NOTES/PAIN MANAGEMENT PT COMPLAINT OF PAIN ON HER RIGHT FACE WITH SCALE OF 10/10. PRN MORPHINE 4MG/2ML IVP ADMINISTERED AT 1053. WILL CONTINUE TO MONITOR AND REASSESS PT.
[2020-01-25] MEDS ORDERED: IOHEXOL-300 100 ML VIAL IV ONE (14:05)
[2020-01-25] MEDS ORDERED: IV NS 0.9% 250 ML IV ONE (14:06)
[2020-01-25 16:00] VITALS: BP 189/113
--- NOTE | 2020-01-25 16:39 | NUR ---
RN NOTES PT WENT HOME AGAINST MEDICAL ADVISE DESPITE SEVERAL EXPLAINING THE RISK OF GOING HOME AMA. MATEO VERDE MADE AWARE. DR COMER EVEN CAME TO UNIT TO SPOKE TO PT ABOUT HER CURRENT MEDICAL CONDITION BUT STILL INSISTED OF GOING HOME AMA. PT SIGNED AMA CONSENT AND PLACED ON HER CHART. PT REFUSED TO TAKE EXIT CARE INSTRUCTIONS FORM. IV ACCESS ON SALBADOR REMOVED, APPLIED DRY DRESSING TO SITE. NAME ARMBAND REMOVED. AV SHUNT ON LEFT ARM IN PLACE WITH POSITIVE BRUIT AND SHRILL NOTED. ALL BELONGINGS ACCOUNTED FOR AND PT SIGNED BELONGINGS LIST. PATIENT LEFT UNIT AMBULATORY AT 1630.
[2020-01-25] MEDS ORDERED: CARVEDILOL 12.5 MG TABLET PO SCH (21:00)
== END 2020-01-25 16:30 | disposition left against medical advice (07) | DRG 194 ==
LOC: ER 01:23 → TELE 04:00 → MED 13:09
PROVIDERS: ADMIT Nurse Practitioner Acute Care; ATTEND Registered Nurse
DX: I13.2 Hypertensive heart and chronic kidney disease with heart failure and with stage 5 chronic kidney disease, or end stage renal disease (principal); N18.6 End stage renal disease; Z99.2 Dependence on renal dialysis; F32.9 Major depressive disorder, single episode, unspecified; G40.909 Epilepsy, unspecified, not intractable, without status epilepticus; D63.1 Anemia in chronic kidney disease; I25.10 Atherosclerotic heart disease of native coronary artery without angina pectoris; K21.9 Gastro-esophageal reflux disease without esophagitis; G51.0 Bell's palsy; F41.9 Anxiety disorder, unspecified; G89.4 Chronic pain syndrome; I50.32 Chronic diastolic (congestive) heart failure; Z88.6 Allergy status to analgesic agent; Z88.1 Allergy status to other antibiotic agents; Z88.5 Allergy status to narcotic agent; Z91.013 Allergy to seafood; Z91.018 Allergy to other foods; Z79.51 Long term (current) use of inhaled steroids; Z79.899 Other long term (current) drug therapy; Z79.82 Long term (current) use of aspirin; H60.91 Unspecified otitis externa, right ear; L03.211 Cellulitis of face; Z86.73 Personal history of transient ischemic attack (TIA), and cerebral infarction without residual deficits; M81.0 Age-related osteoporosis without current pathological fracture; M86.9 Osteomyelitis, unspecified; Z86.711 Personal history of pulmonary embolism; Z86.718 Personal history of other venous thrombosis and embolism; Z90.49 Acquired absence of other specified parts of digestive tract; Z91.15 Patient's noncompliance with renal dialysis; Z91.19 Patient's noncompliance with other medical treatment and regimen; Z79.01 Long term (current) use of anticoagulants; I27.20 Pulmonary hypertension, unspecified; E83.51 Hypocalcemia; N25.81 Secondary hyperparathyroidism of renal origin; E03.9 Hypothyroidism, unspecified; Z76.5 Malingerer [conscious simulation]; L02.02 Furuncle of face; T63.301A Toxic effect of unspecified spider venom, accidental (unintentional), initial encounter; Y92.9 Unspecified place or not applicable; J45.909 Unspecified asthma, uncomplicated; J98.11 Atelectasis; D63.8 Anemia in other chronic diseases classified elsewhere; D69.6 Thrombocytopenia, unspecified; J32.9 Chronic sinusitis, unspecified; K08.9 Disorder of teeth and supporting structures, unspecified; Z22.322 Carrier or suspected carrier of Methicillin resistant Staphylococcus aureus
CPT/HCPCS: 36415; 70450-TC; 70486-TC; 71045-TC; 71260-TC; 73080-TC; 73090-TC; 73564-TC; 80048-TC; 80076-TC; 83605-TC; 83690-TC; 83735-TC; 84100-TC; 84702-TC; 85025-TC; 85610-TC; 85730-TC; 86850-TC; 87040-TC; 87070-TC; 87081-TC; 90935-TC; A4216; G0378; J0360; J0878; J1200; J2270; J2405; J2543; J7050; J7060; J8597; Q9967

== ENCOUNTER 2020-01-25 22:19 | Inpatient (IN) | payer MEDICAID ==
[~2020-01-25] VITALS: Ht 165.1 cm; Wt 77.1 kg
--- NOTE | 2020-01-25 23:12 | NUR ---
PATIENT CAME TO ER BED 10 C/O FACE SWELLING. PATIENT HAS RIGHT EYELID SWELLING AND C/O OF EAR PAIN. PATIENT IS AAOX4. NO SOB. BREATHING EVENLY AND UNLABORED ON ROOM AIR .CONNECTED TO THE MONITOR.
--- NOTE | 2020-01-25 23:14 | NUR ---
DR. SARAHY NAVARRO
--- NOTE | 2020-01-25 23:17 | NUR ---
DR. BATISTA SPEAKING WITH DR. WEATHERS
--- NOTE | 2020-01-25 23:30 | NUR ---
BLOOD AND CORONAVIRUS SWAB SAMPLE COLLECTE AND SENT TO LAB.
--- NOTE | 2020-01-25 23:33 | NUR ---
XRAY AT BEDSIDE.
[2020-01-25 23:48] LABS: BASOPHILS % (AUTO) 0.9 % (0.0-2.0); EOSINOPHILS % (AUTO) 7.5 % (0.0-6.0); HEMATOCRIT 27 % (33-45); HEMOGLOBIN 8.8 g/dL (11.5-14.8); LYMPHOCYTES # (AUTO) 0.4 /CMM (0.8-4.8); LYMPHOCYTES % (AUTO) 9.3 % (20.0-44.0); MEAN CORPUSCULAR HGB CONC 32 g/dl (31.0-36.0); MEAN CORPUSCULAR VOLUME 99 fL (82-100); MONOCYTES # (AUTO) 0.8 /CMM (0.1-1.30); MONOCYTES % (AUTO) 17.6 % (2.0-12.0); NEUTROPHILS # (AUTO) 3.1 /CMM (1.8-8.9); NEUTROPHILS % (AUTO) 64.7 % (43.0-81.0); PLATELET COUNT (AUTO) 135 /CMM (150-450); RED BLOOD CELL COUNT(AUTO) 2.74 MIL/uL (4.0-5.2); WHITE BLOOD COUNT (AUTO) 4.8 K/uL (4.3-11.0)
[2020-01-25 23:57] LABS: CALCIUM, SERUM 8.3 mg/dL (8.5-10.1); POTASSIUM 5.5 mmol/L (3.5-5.1)
[2020-01-26 00:29] LABS: NEUTROPHILS % (MANUAL) 69 (42-76)
[2020-01-26 00:30] LABS: MONOCYTES % (MANUAL) 17 % (0-11.0)
[2020-01-26 00:31] LABS: EOSINOPHILS % (MANUAL) 5 % (0-4); LYMPHOCYTES % (MANUAL) 9 % (16-48)
--- NOTE | 2020-01-26 00:56 | NUR ---
BED ASSIGNMENT 306-1
[2020-01-26] MEDS ORDERED: ACETAMINOPHEN 325 MG TABLET PO PRN (01:00)
[2020-01-26] MEDS ORDERED: ONDANSETRON HCL/PF 4 MG/2 ML VIAL IVP PRN (01:00)
[2020-01-26] MEDS ORDERED: HEPARIN SODIUM, PORCINE 5000 UNITS/1 ML VIAL SQ SCH (01:00)
[2020-01-26] MEDS ORDERED: hydrALAZINE HCL IV 20 MG VIAL ONE (01:00)
[2020-01-26] MEDS ORDERED: SODIUM POLYSTYRENE SULFONATE 15 G/60 ML BOTTLE RC ONE (01:00)
[2020-01-26] MEDS ORDERED: hydrALAZINE HCL IV 20 MG VIAL IV ONE (01:00)
--- NOTE | 2020-01-26 01:13 | NUR ---
REPORT GIVEN TO [address] FOR FRANSICO.
[2020-01-26] MEDS ORDERED: LIDOCAINE 5% (PATCH) 1 EA PATCH TP PRN (01:30)
--- NOTE | 2020-01-26 02:14 | NUR ---
NURSING COMMERCIAL AGENT CALLED TO KEEP PATIENT IN ER FOR FURTHER MONITORING UNTIL SHORTAGE OF NURSING STAFF IN ADMITTED FLOOR IS RESOLVED.
--- NOTE | 2020-01-26 03:45 | NUR ---
PATIENT IS LOOKING AT HER CELLPHONE. NOT COMPLAINING OF PAIN. BREATHING EVENLY AND UNLABORED ON ROOM AIR. CONNECTED TO THE MONITOR.
--- NOTE | 2020-01-26 05:04 | NUR ---
CALLED ADMITTING FLOOR TO TAKE PATIENT UP TO ASSIGNED ROOM.
--- NOTE | 2020-01-26 05:09 | NUR ---
PATIENT IS TAKEN TO ASSIGNED ROOM.
[2020-01-26 05:20] VITALS: BP 192/110
--- NOTE | 2020-01-26 05:20 | NUR ---
SECURITY ASSURANCE ANALYSTPRECISION LENS GRINDER NOTES PATIENT ARRIVED ON UNIT VIA GURNEY IN STABLE CONDITION; ABLE TO AMBULATE TO BED INDEPENDENTLY. A/OX4. STABLE ON RA; BREATHING IS EVEN AND UNLABORED. TELE MONITOR READING SINUS TACH, HEART RATE 107. PATIENT C/O GENERALIZED ITCHINESS AND PAIN ON RIGHT SIDE OF FACE; SWELLING NOTED ON RIGHT SIDE OF FACE INCLUDING EYE; PER PATIENT SWELLING STARTED LAST NIGHT. IV PRESENT ON RIGHT UPPER ARM, SIZE 20, INTACT & PATENT, HEP LOCKED. DIALYSIS SHUNT PRESENT ON LEFT UPPER ARM. BELONGINGS REVIEWED WITH PATIENT. PHOTOS TAKEN AND PLACED IN CHART. SAFETY MEASURES IN PLACE AND PATIENT'S NEEDS MET. BED LOCKED, SIDE RAILS X2, CALL LIGHT WITHIN REACH. WILL CONTINUE TO MONITOR.
--- NOTE | 2020-01-26 05:29 | NUR ---
MICROGRAPHICS SERVICES SUPERVISOR NOTES PATIENT'S BP: 192/110, HR: 92. RN BABY , HENRIK DREW, MADE AWARE. PER HENRIK, OK TO GIVE SCHEDULED BLOOD PRESSURE MEDS AT 0900 EARLY.
[2020-01-26] MEDS: diphenhydrAMINE HCL 50 MG CAPSULE PO PRN ×2 (05:50→13:40)
[2020-01-26] MEDS: LEVOTHYROXINE SODIUM 50 MCG TABLET PO SCH (06:37)
[2020-01-26] MEDS: PANTOPRAZOLE 40 MG TABLET.DR PO SCH (06:37)
[2020-01-26] MEDS: hydrALAZINE HCL 25 MG TABLET PO SCH ×4 (06:37→20:49)
[2020-01-26] MEDS: METOCLOPRAMIDE HCL 10 MG TABLET PO SCH ×4 (06:37→21:02)
[2020-01-26] MEDS ORDERED: CLONIDINE HCL 0.2 MG TABLET PO SCH (07:00)
[2020-01-26] MEDS ORDERED: CARVEDILOL 25 MG TABLET PO SCH (07:00)
--- NOTE | 2020-01-26 07:15 | NUR ---
MS/RN - Assessment Patient is alert and oriented x 4, afebrile, denies pain, tele shows ST, no apparent distress, stable on room air. Saline lock on the SALBADOR is patent and intact with no signs of infiltration. Patient went AMA yesterday and was admitted today for fluid overload, hyperkalemia, ESRD. Fall and aspiration precautions maintained. Will continue with current medical management.
[2020-01-26] MEDS ORDERED: ALBUTEROL FS 2.5 MG/3 ML VIAL.NEB NEB PRN (07:35)
--- NOTE | 2020-01-26 07:43 | NUR ---
ENGINE RESEARCH ENGINEER CLOSING NOTES PATIENT AWAKE IN BED. A/OX4. ON RA. NO S/S OF ACUTE RESPIRATORY DISTRESS; BREATHING IS EVEN AND UNLABORED. TELE MONITOR READING NSR, HEART RATE 86. IV PRESENT ON RIGHT UPPER ARM, SIZE 20, INTACT & PATENT. SAFETY MEASURES IN PLACE AND PATIENT'S NEEDS MET. BED LOCKED, HOB ELEVATED, SIDE RAILS X2, CALL LIGHT WITHIN REACH. ENDORSED TO DAY SHIFT RN PLAN OF CARE.
[2020-01-26] MEDS: SEVELAMER CARBONATE 800 MG TABLET PO SCH ×3 (07:51→17:02)
[2020-01-26 08:00] VITALS: BP 181/120
[2020-01-26] MEDS: TOPIRAMATE 100 MG TABLET PO SCH ×2 (08:20→16:47)
[2020-01-26] MEDS: ESCITALOPRAM OXALATE (10 MG) 10 MG TABLET PO SCH (08:20)
[2020-01-26] MEDS: CALCITRIOL 0.25 MCG CAPSULE PO SCH (08:20)
[2020-01-26] MEDS: FOLIC ACID 1 MG TABLET PO SCH (08:20)
[2020-01-26] MEDS: BISACODYL (5 MG) 5 MG TABLET.DR PO SCH (08:20)
[2020-01-26] MEDS: ASPIRIN EC 81 MG TABLET.DR PO SCH (08:20)
[2020-01-26] MEDS: POLYETHYLENE GLYCOL 3350 17 GM POWD.PACK PO SCH (08:20)
[2020-01-26] MEDS: APIXABAN 5 MG TABLET PO SCH ×2 (08:21→16:49)
[2020-01-26] MEDS: CLONIDINE HCL 0.1 MG TABLET PO SCH ×3 (08:26→16:48)
[2020-01-26] MEDS: NIFEdipine XL (30MG) 30 MG TAB PO SCH (08:26)
[2020-01-26] MEDS: CARVEDILOL 12.5 MG TABLET PO SCH ×2 (08:27→16:48)
[2020-01-26] MEDS: SODIUM POLYSTYRENE SULFONATE 15 G/60 ML BOTTLE PO ONE ×2 (08:37→08:38)
--- NOTE | 2020-01-26 08:38 | NUR ---
Tele/RN - Notes Patient refused to take Kayexalate, explained the importance but still doesn't want it. Patient scheduled for HD treatment today.
[2020-01-26] MEDS ORDERED: CLONIDINE HCL 0.1 MG TABLET PO SCH (09:00)
--- NOTE | 2020-01-26 10:00 | NUR ---
MS/RN - Notes Patient is A/O x 4, wants to leave AMA, explained the risk and consequences involved in leaving the hospital and the benefits of continued treatment and hospitalization. Patient made aware that she's sched for HD treatment today to help manage her elevated BP/potassium level and fluid overload. Patient agreed to stay.
--- NOTE | 2020-01-26 10:30 | NUR ---
MS/RN - Notes D/C telemetry and transfer to [facility] with same orders.
--- NOTE | 2020-01-26 12:44 | NUR ---
MS/RN - BP meds BP medications Hydralazine and Clonidine held due to pt is scheduled for HD treatment today at 14:00, BP 169/93 HR 77.
--- NOTE | 2020-01-26 13:42 | NUR ---
pt refused the Benadryl cap,returned back to the [facility] bin.
[2020-01-26] MEDS: diphenhydrAMINE HCL 50 MG/ML VIAL IV PRN (14:10)
--- NOTE | 2020-01-26 14:30 | NUR ---
MS/RN - Notes Patient had an episode of nosebleed during HD, pinched both nostrils for 5 mins, placed on upright position leaning forward, advised not to pick or blow her nose. Patient understood teachings. HD treatment completed, total fluid removed was 2.5 liters, tolerated it well.
[2020-01-26 16:00] VITALS: BP 148/79
[2020-01-26] MEDS: PIPERACILLIN /TAZOBACTAM 3.375 G in IV D5W 50 ML IV SCH (18:50)
--- NOTE | 2020-01-26 18:55 | NUR ---
MS/RN - End of shift summary Patient with no further episodes of nosebleed, BP improved post HD treatment, Zosyn initial dose infusing well on the SALBADOR, pending CT facial with contrast. All needs attended. Will continue with current plan of care.
--- NOTE | 2020-01-26 19:27 | NUR ---
familiar with patient case due to her multiple hospital visits and noncompliance with treatment plan. Met with patient at bedside, states she currently lives at her Aunt home in [place]. She is ambulatory and independent with adl's. States she goes to [facility] for HD every MWF @ 12 noon. Faxed clinicals to [facility] [phone] per patient request. She plan to return home when discharge. Addendum: 01/26/20 at 1944 by GENOVEVA HAYES RN Amended: Links added.
--- NOTE | 2020-01-26 19:30 | NUR ---
MS RN RECEIVE PT A/O X 3, NO S/S OF DISTRESS. STABLE CONDITION. SAFETY MEASURES AT ALL TIMES. WILL CONT TO MONITOR.
[2020-01-26 20:00] VITALS: BP 141/76
--- NOTE | 2020-01-26 20:10 | NUR ---
PT WANTED TO GO A.M.A DESPITE EXPLAINING PT RISKS AND BENEFITS ASKED PT WHAT SHE REALLY WANTED PER PT "MY PAIN WASN'T ATTENDED AND [facility] DOESN'T DO ANYTHING TO ME. IM BEING ANXIOUS AND I WANTED ATIVAN". I TOLD HER I WILL TRY TO PAGED AND M.D AND SEE WHAT I CAN DO. PT AGREED, PAGED HOSPITALIST OBTAIN TEL ORDER RELAYED PATIENT'S CONCERN. PER NIRAJ DREW ORDER DILAUDID 1 MG IVP Q6HR PRN FOR SEVERE PAIN 8-10 M.D OKAY DESPITE ALLERGY OVERRIDE PT TOOK IT BEFORE AND ATIVAN 1 MG IVP Q6HR PRN READ BACK AND VERIFIED ORDERS NOTED AND CARRIED OUT. PT APPRECIATIVE TO THE NURSE
[2020-01-26] MEDS: HYDROMORPHONE 1 MG/1 ML DISP.SYRIN IV PRN (20:48)
[2020-01-26] MEDS: LORAZEPAM INJ 2 MG/ML VIAL IV PRN (23:50)
[2020-01-27] MEDS: PIPERACILLIN /TAZOBACTAM 3.375 G in IV D5W 50 ML IV SCH ×3 (02:15→17:49)
[2020-01-27] MEDS: HYDROMORPHONE 1 MG/1 ML DISP.SYRIN IV PRN ×2 (04:01→19:18)
--- NOTE | 2020-01-27 06:05 | NUR ---
MS RN PT SLEPT WELL, MONITORED FOR PAIN MEDICATED WITH PRN MEDS WITH HELP. TOLERATING ROOM AIR. ALL NEEDS ATTENDED AND ANTICIPATED, KEPT CLEAN, DRY AND COMFORTABLE AT ALL TIMES. SAFETY MEASURES IN PLACE. WILL ENDORSE TO NEXT SHIFT.
[2020-01-27 08:00] VITALS: BP 156/99
--- NOTE | 2020-01-27 08:00 | NUR ---
MS RN OPENING NOTES Received Patient resting in bed. A/O x 4. VS stable with no acute distress. Breathing even and unlabored on room air with no respiratory distress. Denies pain. No signs and symptoms of pain. 20g PIV on SALBADOR clean, intact, patent and flushing well. KATERIN AV Fistula in place clean, dry and intact. Safety precautions in place. Bed locked and set to lowest position with side rails x 2 up. All needs rendered at this time. Call light within reach. Will continue to monitor.
[2020-01-27] MEDS: PANTOPRAZOLE 40 MG TABLET.DR PO SCH (08:01)
[2020-01-27] MEDS: LEVOTHYROXINE SODIUM 50 MCG TABLET PO SCH (08:01)
[2020-01-27] MEDS: METOCLOPRAMIDE HCL 10 MG TABLET PO SCH ×4 (08:02→21:22)
[2020-01-27] MEDS: SEVELAMER CARBONATE 800 MG TABLET PO SCH ×3 (08:02→17:39)
[2020-01-27] MEDS: hydrALAZINE HCL 25 MG TABLET PO SCH ×4 (08:17→21:22)
[2020-01-27] MEDS: ASPIRIN EC 81 MG TABLET.DR PO SCH (08:17)
[2020-01-27] MEDS: POLYETHYLENE GLYCOL 3350 17 GM POWD.PACK PO SCH (08:18)
[2020-01-27] MEDS: BISACODYL (5 MG) 5 MG TABLET.DR PO SCH (08:18)
[2020-01-27] MEDS: FOLIC ACID 1 MG TABLET PO SCH (08:18)
[2020-01-27] MEDS: CARVEDILOL 12.5 MG TABLET PO SCH ×2 (08:18→18:31)
[2020-01-27] MEDS: ESCITALOPRAM OXALATE (10 MG) 10 MG TABLET PO SCH (08:18)
[2020-01-27] MEDS: CLONIDINE HCL 0.1 MG TABLET PO SCH ×3 (08:18→18:29)
[2020-01-27] MEDS: TOPIRAMATE 100 MG TABLET PO SCH ×2 (08:19→17:47)
[2020-01-27] MEDS: NIFEdipine XL (30MG) 30 MG TAB PO SCH (08:19)
[2020-01-27] MEDS: APIXABAN 5 MG TABLET PO SCH ×2 (08:19→17:48)
[2020-01-27] MEDS: CALCITRIOL 0.25 MCG CAPSULE PO SCH (08:19)
[2020-01-27 08:29] LABS: BASOPHILS % (AUTO) 0.8 % (0.0-2.0); EOSINOPHILS % (AUTO) 9.8 % (0.0-6.0); HEMATOCRIT 26 % (33-45); HEMOGLOBIN 8.5 g/dL (11.5-14.8); LYMPHOCYTES # (AUTO) 0.5 /CMM (0.8-4.8); LYMPHOCYTES % (AUTO) 14.6 % (20.0-44.0); MEAN CORPUSCULAR HGB CONC 32 g/dl (31.0-36.0); MEAN CORPUSCULAR VOLUME 98 fL (82-100); MONOCYTES # (AUTO) 0.7 /CMM (0.1-1.30); MONOCYTES % (AUTO) 22.2 % (2.0-12.0); NEUTROPHILS # (AUTO) 1.7 /CMM (1.8-8.9); NEUTROPHILS % (AUTO) 52.6 % (43.0-81.0); PLATELET COUNT (AUTO) 129 /CMM (150-450); RED BLOOD CELL COUNT(AUTO) 2.69 MIL/uL (4.0-5.2); WHITE BLOOD COUNT (AUTO) 3.2 K/uL (4.3-11.0)
[2020-01-27] MEDS: LORAZEPAM INJ 2 MG/ML VIAL IV PRN ×2 (08:30→21:24)
[2020-01-27 08:42] LABS: CALCIUM, SERUM 8.3 mg/dL (8.5-10.1); MAGNESIUM 2.2 mg/dL (1.8-2.4); PHOSPHORUS 5.8 mg/dL (2.5-4.9); POTASSIUM 5.7 mmol/L (3.5-5.1)
[2020-01-27 08:51] LABS: CREATININE 8.1 mg/dL (0.6-1.3)
[2020-01-27 09:43] LABS: EOSINOPHILS % (MANUAL) 3 % (0-4); LYMPHOCYTES % (MANUAL) 21 % (16-48); MONOCYTES % (MANUAL) 20 % (0-11.0); NEUTROPHILS % (MANUAL) 56 (42-76)
--- NOTE | 2020-01-27 13:00 | NUR ---
MS RN NOTES Did not administer schedule medications at this time. Patient undergoing hemodialysis at this time. Patient in stable condition. BP 128/68 HR 75
[2020-01-27] MEDS: diphenhydrAMINE HCL 50 MG/ML VIAL IV PRN (13:55)
[2020-01-27 16:00] VITALS: BP 128/70
--- NOTE | 2020-01-27 18:47 | NUR ---
Pt received dialysis today @1530. Pt will be ready for contrast exam tomorrow, to allow 24 hour period for kidneys to filter out to receive contrast. Pt will be ready for exam tomorrow 01/28/2020 in the afternoon.
--- NOTE | 2020-01-27 19:25 | NUR ---
MS RN RECEIVE PT A/O X 3, AWAKE WATCHING TV, NO S/S OF DISTRESS. STABLE CONDITION. SAFETY MEASURES AT ALL TIMES. WILL CONT TO MONITOR.
[2020-01-27 20:00] VITALS: BP 125/85
[2020-01-27] MEDS: MUPIROCIN OINT 2% 22 GM TUBE NS SCH (21:09)
--- NOTE | 2020-01-27 21:49 | NUR ---
MS RN PAGED HOSPITALIST FOR + MRSA NARES RECEIVED TEL ORDER BACTROBAN 2% BID 1 APPLICATION NOSTRILS X 7 DAYS READ BACK AND VERIFIED ORDERS NOTED AND CARRIED OUT PT ALSO REQUEST TO HAVE SHOWER. PER HOSPITALIST OK TO SHOWER
[2020-01-28] MEDS: PIPERACILLIN /TAZOBACTAM 3.375 G in IV D5W 50 ML IV SCH ×2 (02:33→09:14)
[2020-01-28] MEDS: HYDROMORPHONE 1 MG/1 ML DISP.SYRIN IV PRN ×3 (02:53→17:15)
--- NOTE | 2020-01-28 05:44 | NUR ---
MS RN NO SIGNIFICANT CHANGES, HAD PM SHOWER. PM SNACKS PROVIDED. IN NO APPARENT DISTRESS, CALM AT THIS TIME. SLEPT WELL 7 HOURS. MONITORED FOR PAIN MEDICATED WITH PRN MEDS WITH HELP. NEEDS ATTENDED AND ANTICIPATED, KEPT CLEAN, DRY AND COMFORTABLE AT ALL TIMES. SAFETY MEASURES IN PLACE. WILL ENDORSE TO NEXT SHIFT.
[2020-01-28 06:48] LABS: BASOPHILS % (AUTO) 0.7 % (0.0-2.0); EOSINOPHILS % (AUTO) 7.4 % (0.0-6.0); HEMATOCRIT 24 % (33-45); HEMOGLOBIN 7.8 g/dL (11.5-14.8); LYMPHOCYTES # (AUTO) 0.5 /CMM (0.8-4.8); LYMPHOCYTES % (AUTO) 15.8 % (20.0-44.0); MEAN CORPUSCULAR HGB CONC 33 g/dl (31.0-36.0); MEAN CORPUSCULAR VOLUME 97 fL (82-100); MONOCYTES # (AUTO) 0.6 /CMM (0.1-1.30); MONOCYTES % (AUTO) 20.4 % (2.0-12.0); NEUTROPHILS # (AUTO) 1.6 /CMM (1.8-8.9); NEUTROPHILS % (AUTO) 55.7 % (43.0-81.0); PLATELET COUNT (AUTO) 123 /CMM (150-450); RED BLOOD CELL COUNT(AUTO) 2.46 MIL/uL (4.0-5.2); WHITE BLOOD COUNT (AUTO) 2.9 K/uL (4.3-11.0)
[2020-01-28 07:05] LABS: ALBUMIN 3.1 g/dL (3.4-5.0); BILIRUBIN,TOTAL 0.3 mg/dL (0.2-1.0); CALCIUM, SERUM 7.9 mg/dL (8.5-10.1); CREATININE 6.7 mg/dL (0.6-1.3); MAGNESIUM 2.1 mg/dL (1.8-2.4); PHOSPHORUS 4.9 mg/dL (2.5-4.9); POTASSIUM 4.8 mmol/L (3.5-5.1); TOTAL PROTEIN, SERUM 7.5 g/dL (6.4-8.2)
--- NOTE | 2020-01-28 07:30 | NUR ---
MS RN OPENING NOTES Patient resting in bed, A/O x 4. Breathing even and non-labored on RA, no SOB noted. No cardiac distress noted. Denies any pain and discomfort at this time. IV access noted on SALBADOR 20 g, patent and intact, and flushing well. KATERIN AV fistula noted, site clean, patent, and intact. Fall precautions maintained, instructed patient to use call light if in need of assistance ambulating. Will continue to monitor throughout shift.
[2020-01-28] MEDS: ESCITALOPRAM OXALATE (10 MG) 10 MG TABLET PO SCH (08:15)
[2020-01-28] MEDS: PANTOPRAZOLE 40 MG TABLET.DR PO SCH (08:15)
[2020-01-28] MEDS: BISACODYL (5 MG) 5 MG TABLET.DR PO SCH (08:16)
[2020-01-28] MEDS: TOPIRAMATE 100 MG TABLET PO SCH ×2 (08:16→17:15)
[2020-01-28] MEDS: SEVELAMER CARBONATE 800 MG TABLET PO SCH ×3 (08:17→17:15)
[2020-01-28] MEDS: METOCLOPRAMIDE HCL 10 MG TABLET PO SCH ×4 (08:17→21:10)
[2020-01-28] MEDS: FOLIC ACID 1 MG TABLET PO SCH (08:17)
[2020-01-28] MEDS: CALCITRIOL 0.25 MCG CAPSULE PO SCH (08:17)
[2020-01-28] MEDS: LEVOTHYROXINE SODIUM 50 MCG TABLET PO SCH (08:22)
[2020-01-28] MEDS: LORAZEPAM INJ 2 MG/ML VIAL IV PRN ×2 (08:22→21:10)
[2020-01-28] MEDS: POLYETHYLENE GLYCOL 3350 17 GM POWD.PACK PO SCH ×2 (08:22→08:45)
[2020-01-28] MEDS: APIXABAN 5 MG TABLET PO SCH ×2 (08:23→17:00)
--- NOTE | 2020-01-28 08:23 | NUR ---
MS/RN NOTES HELD ELIQUIS DUE TO LOW H&H AND LOW PLATELET.
[2020-01-28] MEDS: ASPIRIN EC 81 MG TABLET.DR PO SCH (09:09)
[2020-01-28] MEDS: MUPIROCIN OINT 2% 22 GM TUBE NS SCH ×2 (09:12→21:14)
[2020-01-28] MEDS: CLONIDINE HCL 0.1 MG TABLET PO SCH ×3 (09:13→17:00)
[2020-01-28] MEDS: NIFEdipine XL (30MG) 30 MG TAB PO SCH (09:13)
[2020-01-28] MEDS: hydrALAZINE HCL 25 MG TABLET PO SCH ×4 (09:14→21:09)
[2020-01-28] MEDS: CARVEDILOL 12.5 MG TABLET PO SCH ×2 (09:14→17:00)
[2020-01-28 13:00] VITALS: BP 143/79
[2020-01-28] MEDS ORDERED: IOHEXOL-300 100 ML VIAL IV ONE (13:09)
[2020-01-28] MEDS ORDERED: CT SWABBABLE VALVE TRANS SET 1 EA INFUS.SET MC ONE (13:09)
[2020-01-28] MEDS ORDERED: IV NS 0.9% 250 ML IV ONE (13:09)
--- NOTE | 2020-01-28 13:15 | NUR ---
MS/RN NOTES PATIENT PICKED UP BY PROPERTY CLAIMS ADJUSTER. PATIENT LEFT UNIT SAFELY IN WHEELCHAIR.
[2020-01-28 13:38] LABS: EOSINOPHILS % (MANUAL) 4 % (0-4); LYMPHOCYTES % (MANUAL) 18 % (16-48); MONOCYTES % (MANUAL) 22 % (0-11.0); NEUTROPHILS % (MANUAL) 56 (42-76)
--- NOTE | 2020-01-28 15:45 | NUR ---
MS/RN NOTES Called and followed up pharmacy to bring clindamycin bag for patient.
[2020-01-28] MEDS: CLINDAMYCIN 600 MG in IV D5W 50 ML IV SCH ×2 (16:40→20:39)
--- NOTE | 2020-01-28 17:03 | NUR ---
MS/RN NOTES HELD BP MEDICATIONS SINCE PATIENT WILL HAVE DIALYSIS TODAY. ALSO HELD ELIQUIS DUE TO LOW H& AND PLATELET COUNT.
[2020-01-28] MEDS: diphenhydrAMINE HCL 50 MG CAPSULE PO PRN (17:25)
--- NOTE | 2020-01-28 17:30 | NUR ---
MS/RN NOTES PATIENT SPIT OUT BENADRYL PO, WANTS BENADRYL IV BEFORE HEMODIALYSIS.
[2020-01-28] MEDS: diphenhydrAMINE HCL 50 MG/ML VIAL IV PRN (17:32)
--- NOTE | 2020-01-28 18:37 | NUR ---
MS RN CLOSING NOTES Patient in bed, A/O x 4, currently getting dialyzed. VSS, breathing even and non-labored on RA. No respiratory or cardiac distress noted. No complaints of pain and discomfort noted, last dilaudid given at 1715. IV access noted on SALBADOR 20 g, patent and intact, and flushing well. KATERIN AV fistula noted, site clean, patent, and intact. Fall precautions maintained. Will endorse to claim agent nurse.
--- NOTE | 2020-01-28 19:34 | NUR ---
MS RN RECEIVE PT A/O X 3, STABLE, WATCHING TV, NO S/S OF DISTRESS. STABLE CONDITION. SAFETY MEASURES AT ALL TIMES. WILL CONT TO MONITOR.
[2020-01-28 20:00] VITALS: BP 135/75
[2020-01-29] MEDS: HYDROMORPHONE 1 MG/1 ML DISP.SYRIN IV PRN ×3 (02:48→23:11)
[2020-01-29] MEDS: CLINDAMYCIN 600 MG in IV D5W 50 ML IV SCH ×3 (04:46→21:06)
[2020-01-29] MEDS: diphenhydrAMINE HCL 50 MG/ML VIAL IV PRN (04:49)
--- NOTE | 2020-01-29 05:40 | NUR ---
MS RN ASLEEP AND EASILY AWAKEN, PM SNACKS PROVIDED. TOLERATING ROOM AIR, IN STABLE CONDITION. NO S/S OF DISTRESS, NEEDS ATTENDED AND ANTICIPATED, KEPT CLEAN, DRY AND COMFORTABLE AT ALL TIMES. MONITORED ACCORDINGLY. GOOD SKIN CARE PROVIDED. SLEEP WELL 9 [address]RS. SAFETY MEASURES IN PLACE. WILL ENDORSE TO NEXT SHIFT.
[2020-01-29 06:40] LABS: BASOPHILS % (AUTO) 0.6 % (0.0-2.0); HEMATOCRIT 24 % (33-45); HEMOGLOBIN 7.8 g/dL (11.5-14.8); LYMPHOCYTES # (AUTO) 0.4 /CMM (0.8-4.8); LYMPHOCYTES % (AUTO) 14.6 % (20.0-44.0); MEAN CORPUSCULAR HGB CONC 32 g/dl (31.0-36.0); MEAN CORPUSCULAR VOLUME 98 fL (82-100); MONOCYTES # (AUTO) 0.5 /CMM (0.1-1.30); MONOCYTES % (AUTO) 17.3 % (2.0-12.0); NEUTROPHILS # (AUTO) 1.8 /CMM (1.8-8.9); NEUTROPHILS % (AUTO) 61.5 % (43.0-81.0); PLATELET COUNT (AUTO) 107 /CMM (150-450); RED BLOOD CELL COUNT(AUTO) 2.44 MIL/uL (4.0-5.2); WHITE BLOOD COUNT (AUTO) 2.9 K/uL (4.3-11.0)
--- NOTE | 2020-01-29 07:43 | NUR ---
MS RN OPENING NOTES PATIENT IS A/0 X 4 AWAKE WITH NO SIGNS OF DISTRESS AND NO SOB OIN ROOM AIR. IV R UA#20G INTACT SL AND L AV FISTULA. SAFETY MEASURES ARE APPLIED BED IS LOCKED AND LOW POSITION, SIDE RAILS UP X 2 FOR SAFETY. CALL LIGHT WITHIN REACH WILL CONTINUE TO MONITOR.
[2020-01-29] MEDS: METOCLOPRAMIDE HCL 10 MG TABLET PO SCH ×4 (08:02→22:19)
[2020-01-29] MEDS: SEVELAMER CARBONATE 800 MG TABLET PO SCH ×3 (08:02→16:56)
[2020-01-29] MEDS: PANTOPRAZOLE 40 MG TABLET.DR PO SCH (08:02)
[2020-01-29] MEDS: LEVOTHYROXINE SODIUM 50 MCG TABLET PO SCH (08:02)
[2020-01-29] MEDS: LORAZEPAM INJ 2 MG/ML VIAL IV PRN ×2 (08:03→16:59)
[2020-01-29 08:16] LABS: CALCIUM, SERUM 8.2 mg/dL (8.5-10.1); CREATININE 6.5 mg/dL (0.6-1.3); MAGNESIUM 2.2 mg/dL (1.8-2.4); POTASSIUM 5.1 mmol/L (3.5-5.1)
[2020-01-29 08:33] VITALS: BP 163/82
[2020-01-29] MEDS: BISACODYL (5 MG) 5 MG TABLET.DR PO SCH (08:58)
[2020-01-29] MEDS: CLONIDINE HCL 0.1 MG TABLET PO SCH ×3 (08:58→16:57)
[2020-01-29] MEDS: CARVEDILOL 12.5 MG TABLET PO SCH ×2 (08:59→16:56)
[2020-01-29] MEDS: ASPIRIN EC 81 MG TABLET.DR PO SCH (08:59)
[2020-01-29] MEDS: CALCITRIOL 0.25 MCG CAPSULE PO SCH (08:59)
[2020-01-29] MEDS: hydrALAZINE HCL 25 MG TABLET PO SCH ×4 (08:59→21:06)
[2020-01-29] MEDS: TOPIRAMATE 100 MG TABLET PO SCH ×2 (09:00→16:57)
[2020-01-29] MEDS: NIFEdipine XL (30MG) 30 MG TAB PO SCH (09:00)
[2020-01-29] MEDS: ESCITALOPRAM OXALATE (10 MG) 10 MG TABLET PO SCH (09:00)
[2020-01-29] MEDS: FOLIC ACID 1 MG TABLET PO SCH (09:00)
[2020-01-29] MEDS: POLYETHYLENE GLYCOL 3350 17 GM POWD.PACK PO SCH (09:01)
[2020-01-29] MEDS: APIXABAN 5 MG TABLET PO SCH ×3 (09:09→17:00)
[2020-01-29] MEDS: MUPIROCIN OINT 2% 22 GM TUBE NS SCH ×2 (09:49→21:06)
--- NOTE | 2020-01-29 14:00 | NUR ---
PATIENT COMPLAIN OF GENERAL PAIN 9/10 PS SPO2 99% IN ROOM AIR. GAVE DILAUDID PRN. WILL CONTINUE TO MONITOR
--- NOTE | 2020-01-29 15:30 | NUR ---
DR. MERLOS AWARE OF PATIENT NOSE BLEED NO NEW ORDERS ONLY TO HOLD ELIQUIS UNTIL NOSE STOPS BLEEDING. WILL CONTINUE TO MONITOR.
[2020-01-29 16:52] VITALS: BP 122/67
[2020-01-29] MEDS ORDERED: APIXABAN 5 MG TABLET PO SCH (17:00)
--- NOTE | 2020-01-29 17:06 | NUR ---
HELD ELAINE PATIENT IS HAVING NOSE BLEED. WILL CONTINUE TO MONITOR.
--- NOTE | 2020-01-29 19:03 | NUR ---
MS RN CLOSING NOTES PATIENT IS A/0 X 4 AWAKE WITH NO SIGNS OF DISTRESS AND NO SOB IN ROOM AIR. IV R UA#20G INTACT SL AND L AV FISTULA.PATIENT REMAINED STABLE THROUGH OUT SHIFT. PATIENT KEPT CLEAN AND DRY. ALL NEEDS, CARE, TREATMENT AND MEDICATIONS ADMINISTERED ANTICIPATED PER ORDER. SAFETY MEASURES ARE APPLIED BED IS LOCKED AND LOW POSITION, SIDE RAILS UP X 2 FOR SAFETY. CALL LIGHT WITHIN REACH. WILL ENDORSE TO THE NEXT CERTIFIED PESTICIDE APPLICATOR.
--- NOTE | 2020-01-29 19:40 | NUR ---
MS RN OPENING NOTES PATIENT RECEIVED RESTING IN BED COMFORTABLY, EATING DINNER; A/OX4; BREATHING EVEN AND UNLABORED; PATIENT ON ROOM AIR, TOLERATING WELL; NO SOB NOTED; NO DISTRESS NOTED; R UA # 20 INTACT AND PATENT, FLUSHING WELL; NO S/S OF REDNESS OR INFILTRATION NOTED; KATERIN AV FISTULA PRESENT; PATIENT ABLE TO MAKE NEEDS KNOWN; SAFETY PRECAUTIONS IMPLEMENTED, BED LOCKED IN LOW POSITION; SIDE RAILSX2; CALL LIGHT WITHIN EASY REACH, PATIENT AWARE TO USE CALL LIGHT FOR ASSISTANCE; WILL CONT TO MONITOR
[2020-01-29 20:00] VITALS: BP 143/76
[2020-01-29] MEDS: HYDROCODONE/APAP 5/325MG TABLET PO PRN (21:14)
--- NOTE | 2020-01-30 02:14 | NUR ---
MS RN NOTES PATIENT REQUESTING TO SHOWER AT THIS TIME; IV SITE WRAPPED/SECURED; PATIENT A/OX4; AMBULATES WITH STEADY GATE; PATIENT AWARE TO INFORM ONCE DONE SHOWERING; WILL CONT TO MONITOR
[2020-01-30] MEDS: diphenhydrAMINE HCL 50 MG/ML VIAL IV PRN ×3 (02:37→22:39)
--- NOTE | 2020-01-30 02:37 | NUR ---
MS RN NOTES PATIENT BACK IN ROOM, PATIENT REPORTED FEELING MUCH BETTER AFTER HER SHOWER BUT IS COMPLAINING OF GENERALIZED ITCHINESS; PATIENT REQUESTING BENADRYL IVP; ADMINISTERED MED PER MD ORDER; WILL CONT TO MONITOR
[2020-01-30] MEDS: CLINDAMYCIN 600 MG in IV D5W 50 ML IV SCH ×3 (04:19→21:37)
[2020-01-30] MEDS: LORAZEPAM INJ 2 MG/ML VIAL IV PRN ×2 (04:27→17:26)
--- NOTE | 2020-01-30 07:00 | NUR ---
MS RN CLOSING NOTES PATIENT RESTING IN BED COMFORTABLY; A/OX4; BREATHING EVEN AND UNLABORED ON ROOM AIR; TOLERATING WELL; PATIENT ABLE TO MAKE NEEDS KNOWN; SALBADOR MIDLINE #20, INTACT AND PATENT; KATERIN AV FISTULA PRESENT; ALL NEEDS RENDERED; SAFETY PRECAUTIONS IMPLEMENTED; BED LOCKED IN LOW POSITION; SIDE RAILSX2; CALL LIGHT WITHIN REACH; WILL ENDORSE FRANSICO TO ONCOMING SHIFT
--- NOTE | 2020-01-30 07:26 | NUR ---
MS RN OPENING NOTES PATIENT IS SLEEPING NO SIGNS OF DISTRESS AND NO SOB IN ROOM AIR. IV R UA#20G INTACT SL AND L AV FISTULA. SAFETY MEASURES ARE APPLIED BED IS LOCKED AND LOW POSITION, SIDE RAILS UP X 2 FOR SAFETY. CALL LIGHT WITHIN REACH WILL CONTINUE TO MONITOR.
[2020-01-30 08:00] VITALS: BP 154/98
[2020-01-30 08:20] LABS: CALCIUM, SERUM 8.2 mg/dL (8.5-10.1); MAGNESIUM 2.4 mg/dL (1.8-2.4); PHOSPHORUS 5.8 mg/dL (2.5-4.9)
[2020-01-30] MEDS: POLYETHYLENE GLYCOL 3350 17 GM POWD.PACK PO SCH (08:33)
[2020-01-30] MEDS: hydrALAZINE HCL 25 MG TABLET PO SCH ×4 (08:34→21:38)
[2020-01-30] MEDS: SEVELAMER CARBONATE 800 MG TABLET PO SCH ×3 (08:34→17:13)
[2020-01-30] MEDS: ESCITALOPRAM OXALATE (10 MG) 10 MG TABLET PO SCH (08:35)
[2020-01-30] MEDS: BISACODYL (5 MG) 5 MG TABLET.DR PO SCH (08:35)
[2020-01-30] MEDS: CLONIDINE HCL 0.1 MG TABLET PO SCH ×3 (08:35→17:14)
[2020-01-30] MEDS: METOCLOPRAMIDE HCL 10 MG TABLET PO SCH ×4 (08:35→21:38)
[2020-01-30] MEDS: PANTOPRAZOLE 40 MG TABLET.DR PO SCH (08:36)
[2020-01-30] MEDS: ASPIRIN EC 81 MG TABLET.DR PO SCH (08:36)
[2020-01-30] MEDS: CALCITRIOL 0.25 MCG CAPSULE PO SCH (08:36)
[2020-01-30] MEDS: CARVEDILOL 12.5 MG TABLET PO SCH ×2 (08:36→17:14)
[2020-01-30] MEDS: TOPIRAMATE 100 MG TABLET PO SCH ×2 (08:37→17:13)
[2020-01-30] MEDS: LEVOTHYROXINE SODIUM 50 MCG TABLET PO SCH (08:37)
[2020-01-30] MEDS: NIFEdipine XL (30MG) 30 MG TAB PO SCH (08:37)
[2020-01-30] MEDS: FOLIC ACID 1 MG TABLET PO SCH (08:37)
[2020-01-30] MEDS: APIXABAN 5 MG TABLET PO SCH (08:47)
[2020-01-30] MEDS: HYDROMORPHONE 1 MG/1 ML DISP.SYRIN IV PRN (09:04)
[2020-01-30 10:13] LABS: BASOPHILS % (AUTO) 1.2 % (0.0-2.0); EOSINOPHILS % (AUTO) 4.7 % (0.0-6.0); HEMATOCRIT 23 % (33-45); HEMOGLOBIN 7.7 g/dL (11.5-14.8); LYMPHOCYTES # (AUTO) 0.4 /CMM (0.8-4.8); LYMPHOCYTES % (AUTO) 12.7 % (20.0-44.0); MEAN CORPUSCULAR HGB CONC 33 g/dl (31.0-36.0); MEAN CORPUSCULAR VOLUME 97 fL (82-100); MONOCYTES # (AUTO) 0.5 /CMM (0.1-1.30); MONOCYTES % (AUTO) 14.2 % (2.0-12.0); NEUTROPHILS # (AUTO) 2.2 /CMM (1.8-8.9); NEUTROPHILS % (AUTO) 67.2 % (43.0-81.0); PLATELET COUNT (AUTO) 117 /CMM (150-450); WHITE BLOOD COUNT (AUTO) 3.3 K/uL (4.3-11.0)
[2020-01-30] MEDS: MUPIROCIN OINT 2% 22 GM TUBE NS SCH ×2 (11:07→21:40)
--- NOTE | 2020-01-30 13:00 | NUR ---
PATIENT ON HEMODIALYSES AT THIS TIME BP MEDS ON HOLD.
[2020-01-30 16:00] VITALS: BP 124/75
--- NOTE | 2020-01-30 19:00 | NUR ---
MS RN CLOSING NOTES PATIENT IS SLEEPING NO SIGNS OF DISTRESS AND NO SOB IN ROOM AIR. IV R UA#20G INTACT SL AND L AV FISTULA. PATIENT KEPT CLEAN AND DRY. ALL NEEDS, CARE, TREATMENT AND MEDICATIONS ADMINISTERED ANTICIPATED PER ORDER. SAFETY MEASURES ARE APPLIED BED IS IN LOCK POSITION SIDE RAILS UP X 2 FOR SAFETY CALL LIGHT WITHIN REACH. WILL ENDORSE TO THE WORKERS COMPENSATION CLAIMS ANALYST NURSE.
[2020-01-30 20:00] VITALS: BP_SYST 132; BP_SYST 138; BP_DIAS 65; BP_DIAS 82
--- NOTE | 2020-01-30 20:00 | NUR ---
MS RN OPENING NOTE: Patient in bed sleeping comfortably but easily aroused. Patient is in no signs of pain or discomfort at this time. Patient is on room air and breathing well. No SOB, breathing equal and unlabored. Noted IV access on right upper arm, 20g, flushes well, patent, no redness or infiltration. Noted Left AV fistula, thrill and bruit noted. Safety measures are in place, bed in the lowest level, alarm is on, bed is locked, side rails x2 are up, and call light is within reach. Will continue to monitor.
[2020-01-30] MEDS ORDERED: ZOLPIDEM TARTRATE 5 MG TABLET PO ONE (22:00)
--- NOTE | 2020-01-30 22:39 | NUR ---
MS RN NOTE: Patient complains of generalized itching. Administered PRN Benadryl per MD order. Will follow up.
[2020-01-30] MEDS: HYDROCODONE/APAP 5/325MG TABLET PO PRN (22:59)
--- NOTE | 2020-01-30 22:59 | NUR ---
MS RN NOTE: Patient complains of generalized body pain. Patient describes pain as aching and rates it a 7 on a 0-10 numerical scale. Administered PRN Carmen per MD order. Will continue to monitor.
--- NOTE | 2020-01-30 23:59 | NUR ---
MS RN NOTE: Reassess PRN [place]. PRN medication effective. Patient in bed sleeping but easily aroused. No adverse reaction to medication noted.
[2020-01-31] MEDS: LORAZEPAM INJ 2 MG/ML VIAL IV PRN ×3 (00:38→17:10)
--- NOTE | 2020-01-31 00:39 | NUR ---
MS RN NOTE: Patient complains of anxiety. Administered PRN Ativan per MD order. Will continue to monitor.
[2020-01-31] MEDS: CLINDAMYCIN 600 MG in IV D5W 50 ML IV SCH ×3 (04:58→20:20)
--- NOTE | 2020-01-31 06:36 | NUR ---
MS RN NOTE: Patient complains of generalized itching. Administered PRN Benadryl per MD order. Will continue to monitor.
[2020-01-31] MEDS: LEVOTHYROXINE SODIUM 50 MCG TABLET PO SCH (06:38)
[2020-01-31] MEDS: diphenhydrAMINE HCL 50 MG/ML VIAL IV PRN ×3 (06:38→20:22)
--- NOTE | 2020-01-31 06:49 | NUR ---
MS RN CLOSING NOTE: Patient in bed awake and alert. Patient is in no signs of pain or discomfort at this time. Patient is on room air and breathing well. No SOB, breathing equal and unlabored. Safety measures are in place, bed in the lowest level, alarm is on, bed is locked, side rails x2 are up, and call light is within reach. Will endorse to next shift.
[2020-01-31 07:25] LABS: BASOPHILS % (AUTO) 0.7 % (0.0-2.0); EOSINOPHILS % (AUTO) 3.7 % (0.0-6.0); HEMATOCRIT 25 % (33-45); HEMOGLOBIN 8.2 g/dL (11.5-14.8); LYMPHOCYTES # (AUTO) 0.5 /CMM (0.8-4.8); LYMPHOCYTES % (AUTO) 14.6 % (20.0-44.0); MEAN CORPUSCULAR HGB CONC 33 g/dl (31.0-36.0); MEAN CORPUSCULAR VOLUME 97 fL (82-100); MONOCYTES # (AUTO) 0.4 /CMM (0.1-1.30); MONOCYTES % (AUTO) 12.4 % (2.0-12.0); NEUTROPHILS # (AUTO) 2.5 /CMM (1.8-8.9); NEUTROPHILS % (AUTO) 68.6 % (43.0-81.0); PLATELET COUNT (AUTO) 119 /CMM (150-450); RED BLOOD CELL COUNT(AUTO) 2.59 MIL/uL (4.0-5.2); WHITE BLOOD COUNT (AUTO) 3.6 K/uL (4.3-11.0)
--- NOTE | 2020-01-31 07:47 | NUR ---
RN OPENING NOTE Patient is resting in bed, A/O x4, showing no signs of acute distress or SOB, stable on RA. IV line is clean and intact flushing well. Patient is independent with care and able to ambulate to bathroom. Bed is in lowest position, side rails x3 in upright position, call light is within reach, fall safety and aspiration precautions enforced. Will continue with plan of care.
[2020-01-31 08:00] VITALS: BP 159/94
[2020-01-31 08:26] LABS: CALCIUM, SERUM 8.2 mg/dL (8.5-10.1); MAGNESIUM 2.2 mg/dL (1.8-2.4); PHOSPHORUS 4.9 mg/dL (2.5-4.9); POTASSIUM 5.3 mmol/L (3.5-5.1)
[2020-01-31] MEDS: SEVELAMER CARBONATE 800 MG TABLET PO SCH ×3 (08:51→17:00)
[2020-01-31] MEDS: ESCITALOPRAM OXALATE (10 MG) 10 MG TABLET PO SCH (08:51)
[2020-01-31] MEDS: CLONIDINE HCL 0.1 MG TABLET PO SCH ×3 (08:51→17:00)
[2020-01-31] MEDS: NIFEdipine XL (30MG) 30 MG TAB PO SCH (08:52)
[2020-01-31] MEDS: CARVEDILOL 12.5 MG TABLET PO SCH ×2 (08:52→17:01)
[2020-01-31] MEDS: hydrALAZINE HCL 25 MG TABLET PO SCH ×4 (08:53→20:22)
[2020-01-31] MEDS: BISACODYL (5 MG) 5 MG TABLET.DR PO SCH (08:53)
[2020-01-31] MEDS: PANTOPRAZOLE 40 MG TABLET.DR PO SCH (08:53)
[2020-01-31] MEDS: TOPIRAMATE 100 MG TABLET PO SCH ×2 (08:55→17:01)
[2020-01-31] MEDS: METOCLOPRAMIDE HCL 10 MG TABLET PO SCH ×4 (08:55→21:01)
[2020-01-31] MEDS: FOLIC ACID 1 MG TABLET PO SCH (08:56)
[2020-01-31] MEDS: POLYETHYLENE GLYCOL 3350 17 GM POWD.PACK PO SCH (08:56)
[2020-01-31] MEDS: CALCITRIOL 0.25 MCG CAPSULE PO SCH (08:56)
[2020-01-31] MEDS: MUPIROCIN OINT 2% 22 GM TUBE NS SCH ×2 (08:58→20:20)
[2020-01-31] MEDS ORDERED: ASPIRIN EC 81 MG TABLET.DR PO SCH (09:00)
--- NOTE | 2020-01-31 15:44 | NUR ---
RN NOTE HD completed 2500 out. Patient remains stable, vital signs stable.
--- NOTE | 2020-01-31 18:39 | NUR ---
RN CLOSING NOTE Patient is resting in bed, A/O x4, showing no signs of acute distress or SOB, stable on RA. S/P HD 2500 OUT TODAY. IV line is clean and intact flushing well. Patient is independent with care and able to ambulate to bathroom. All patient needs met, all due medications given, patient kept clean and dry throughout shift. Bed is in lowest position, side rails x3 in upright position, call light is within reach, fall safety and aspiration precautions enforced. Will endorse to evp and chief operating officer.
[2020-01-31 20:00] VITALS: BP 144/77
--- NOTE | 2020-01-31 20:00 | NUR ---
MS RN OPENING NOTE: Patient in bed sleeping but easily aroused. Patient is on room air. Breathing well, unlabored and equal. Shows no signs of SOB or distress. Patient independent and able to ambulate to the bathroom. Noted IV access on right upper arm, 22gague. Intact, flushes well, patent, no redness, or infiltration. Safety precaution is in place, bed is in the lowest level, locks are on, side rails x2 are up, and call light is within reach. Will continue to monitor.
--- NOTE | 2020-01-31 20:22 | NUR ---
MS RN NOTE: Patient complains of generalized itching. Administered PRN Benadryl per MD order. Will monitor.
[2020-01-31 20:45] VITALS: BP 144/77
[2020-02-01] MEDS: LORAZEPAM INJ 2 MG/ML VIAL IV PRN ×2 (02:19→08:45)
--- NOTE | 2020-02-01 02:19 | NUR ---
MS RN NOTE: Patient stated feeling anxious. Administered PRN Ativan per MD order. Will continue to monitor.
[2020-02-01] MEDS: diphenhydrAMINE HCL 50 MG/ML VIAL IV PRN ×2 (03:39→09:41)
--- NOTE | 2020-02-01 03:39 | NUR ---
MS RN NOTE: Patient complains of generalized itching. Administered PRN Benadryl per MD order. Will continue to monitor.
[2020-02-01] MEDS: CLINDAMYCIN 600 MG in IV D5W 50 ML IV SCH (05:27)
[2020-02-01] MEDS: LEVOTHYROXINE SODIUM 50 MCG TABLET PO SCH (06:11)
[2020-02-01 06:38] LABS: CALCIUM, SERUM 8.4 mg/dL (8.5-10.1); CREATININE 6.7 mg/dL (0.6-1.3)
[2020-02-01 06:42] LABS: BASOPHILS % (AUTO) 0.7 % (0.0-2.0); EOSINOPHILS % (AUTO) 3.1 % (0.0-6.0); HEMATOCRIT 23 % (33-45); HEMOGLOBIN 7.6 g/dL (11.5-14.8); LYMPHOCYTES # (AUTO) 0.4 /CMM (0.8-4.8); LYMPHOCYTES % (AUTO) 13.5 % (20.0-44.0); MEAN CORPUSCULAR HGB CONC 33 g/dl (31.0-36.0); MEAN CORPUSCULAR VOLUME 97 fL (82-100); MONOCYTES # (AUTO) 0.5 /CMM (0.1-1.30); MONOCYTES % (AUTO) 14.7 % (2.0-12.0); NEUTROPHILS # (AUTO) 2.2 /CMM (1.8-8.9); PLATELET COUNT (AUTO) 109 /CMM (150-450); RED BLOOD CELL COUNT(AUTO) 2.38 MIL/uL (4.0-5.2); WHITE BLOOD COUNT (AUTO) 3.2 K/uL (4.3-11.0)
--- NOTE | 2020-02-01 06:47 | NUR ---
MS RN CLOSING NOTE: Patient in bed sleeping but easily aroused. Patient is breathing well on room air, unlabored and equal. Shows no signs of SOB or distress. Safety precaution is in place, bed is in the lowest level, locks are on, side rails x2 are up, and call light is within reach. Will endorse to morning shift.
[2020-02-01 08:00] VITALS: BP 176/106
[2020-02-01] MEDS: SEVELAMER CARBONATE 800 MG TABLET PO SCH ×2 (08:29→12:24)
[2020-02-01] MEDS: ESCITALOPRAM OXALATE (10 MG) 10 MG TABLET PO SCH (08:30)
[2020-02-01] MEDS: hydrALAZINE HCL 25 MG TABLET PO SCH ×3 (08:30→16:31)
[2020-02-01] MEDS: METOCLOPRAMIDE HCL 10 MG TABLET PO SCH ×3 (08:30→16:35)
[2020-02-01] MEDS: BISACODYL (5 MG) 5 MG TABLET.DR PO SCH (08:30)
[2020-02-01] MEDS: FOLIC ACID 1 MG TABLET PO SCH (08:31)
[2020-02-01] MEDS: CARVEDILOL 12.5 MG TABLET PO SCH ×2 (08:31→16:31)
[2020-02-01] MEDS: CALCITRIOL 0.25 MCG CAPSULE PO SCH (08:31)
[2020-02-01] MEDS: PANTOPRAZOLE 40 MG TABLET.DR PO SCH (08:31)
[2020-02-01] MEDS: CLONIDINE HCL 0.1 MG TABLET PO SCH ×3 (08:31→16:24)
[2020-02-01] MEDS: TOPIRAMATE 100 MG TABLET PO SCH ×2 (08:31→16:31)
[2020-02-01] MEDS: NIFEdipine XL (30MG) 30 MG TAB PO SCH (08:32)
[2020-02-01] MEDS: MUPIROCIN OINT 2% 22 GM TUBE NS SCH (08:36)
[2020-02-01] MEDS: POLYETHYLENE GLYCOL 3350 17 GM POWD.PACK PO SCH (08:42)
[2020-02-01] MEDS ORDERED: ASPIRIN EC 325 MG TABLET.DR PO SCH (09:00)
[2020-02-01] MEDS ORDERED: CLINDAMYCIN HCL 150 MG CAPSULE PO SCH (13:00)
--- NOTE | 2020-02-01 16:00 | NUR ---
RN NOTE HD COMPLETED 2300CC OUT. Patient remains stable, VS stable.
[2020-02-01 16:31] VITALS: BP 151/81
--- NOTE | 2020-02-01 17:58 | NUR ---
RN AMA NOTE Patient requested to leave against medical advice. When I asked the patient why she wanted to leave she didn't specify a reason. She just stated, "I want to leave AMA, can you please give me the paper." Patient signed the AMA form and said she is going to go home. ID band removed, IV removed. Patient refused to have belongings checked. Patient left the unit ambulatory. Charge nurse aware, CM aware, and made aware.
== END 2020-02-01 17:44 | disposition left against medical advice (07) | DRG 194 ==
LOC: ER 22:23 → TELE 01-26 01:57 → MED 01-26 11:07
PROVIDERS: ADMIT Student in an Organized Health Care Education/Training Program; ATTEND Nurse Practitioner Acute Care
PROC: 5A1D70Z Performance of Urinary Filtration, Intermittent, Less than 6 Hours Per Day (ICD-10-PCS; principal; 2020-01-26)
DX: I13.2 Hypertensive heart and chronic kidney disease with heart failure and with stage 5 chronic kidney disease, or end stage renal disease (principal); N18.6 End stage renal disease; Z99.2 Dependence on renal dialysis; L03.211 Cellulitis of face; D63.8 Anemia in other chronic diseases classified elsewhere; D69.6 Thrombocytopenia, unspecified; E03.9 Hypothyroidism, unspecified; E87.5 Hyperkalemia; F32.9 Major depressive disorder, single episode, unspecified; G40.909 Epilepsy, unspecified, not intractable, without status epilepticus; G51.0 Bell's palsy; I25.10 Atherosclerotic heart disease of native coronary artery without angina pectoris; K21.9 Gastro-esophageal reflux disease without esophagitis; M81.0 Age-related osteoporosis without current pathological fracture; J45.909 Unspecified asthma, uncomplicated; I27.20 Pulmonary hypertension, unspecified; Z76.5 Malingerer [conscious simulation]; Z86.711 Personal history of pulmonary embolism; Z86.718 Personal history of other venous thrombosis and embolism; Z86.73 Personal history of transient ischemic attack (TIA), and cerebral infarction without residual deficits; Z91.15 Patient's noncompliance with renal dialysis; G89.4 Chronic pain syndrome; I21.A1 Myocardial infarction type 2; Z22.322 Carrier or suspected carrier of Methicillin resistant Staphylococcus aureus; H60.91 Unspecified otitis externa, right ear; M86.9 Osteomyelitis, unspecified; Z91.81 History of falling; I77.1 Stricture of artery; I50.9 Heart failure, unspecified; I82.C11 Acute embolism and thrombosis of right internal jugular vein
CPT/HCPCS: 36415; 70487-TC; 71045-TC; 80048-TC; 80053-TC; 83735-TC; 84100-TC; 84484-TC; 84702-TC; 85025-TC; 86704; 86706; 87081-TC; 87340; 90935-TC; C9803-CS; G0378; J0360; J1170; J1200; J2060; J2543; J3490; J7040; J7050; J7060; J8597; Q0163; Q9967

== ENCOUNTER 2020-02-03 21:39 | Inpatient (IN) | payer MEDICAID ==
[~2020-02-03] VITALS: Ht 165.1 cm; Wt 82.1 kg
[2020-02-03] MEDS ORDERED: hydrALAZINE HCL IV 20 MG VIAL IV ONE ×2 (22:30→23:30)
[2020-02-03] MEDS ORDERED: hydrALAZINE HCL IV 20 MG VIAL ONE ×2 (22:40→23:20)
[2020-02-03 22:59] LABS: BASOPHILS % (AUTO) 0.9 % (0.0-2.0); EOSINOPHILS % (AUTO) 2.9 % (0.0-6.0); HEMATOCRIT 24 % (33-45); HEMOGLOBIN 7.9 g/dL (11.5-14.8); LYMPHOCYTES # (AUTO) 0.5 /CMM (0.8-4.8); LYMPHOCYTES % (AUTO) 10.5 % (20.0-44.0); MEAN CORPUSCULAR HGB CONC 33 g/dl (31.0-36.0); MEAN CORPUSCULAR VOLUME 97 fL (82-100); MONOCYTES # (AUTO) 0.6 /CMM (0.1-1.30); MONOCYTES % (AUTO) 12.7 % (2.0-12.0); NEUTROPHILS # (AUTO) 3.7 /CMM (1.8-8.9); PLATELET COUNT (AUTO) 114 /CMM (150-450); RED BLOOD CELL COUNT(AUTO) 2.47 MIL/uL (4.0-5.2); WHITE BLOOD COUNT (AUTO) 5.1 K/uL (4.3-11.0)
--- NOTE | 2020-02-03 23:04 | NUR ---
C/O LLE PAIN WITH SWELLING X1DAY. "IT FEELS THE SAME WHEN I HAD BLOOD CLOT". PT AAOX4, BP ELEVATED. DENIES CHOWDHURY, DIZZINESS, N/V, NUMBNESS/TINGLING, WEAKNESS AT THIS TIME. PT SEEN & EVAL'D BY DR. HEAD. PLACED ON COO. MEDICATED FOR ELEVATED BP, PT ARNOL WELL. WILL CONT TO MONITOR.
[2020-02-03 23:09] LABS: CALCIUM, SERUM 8.9 mg/dL (8.5-10.1); POTASSIUM 4.7 mmol/L (3.5-5.1)
[2020-02-03 23:10] LABS: CREATININE 9.2 mg/dL (0.6-1.3)
[2020-02-03 23:15] LABS: ALBUMIN 3.5 g/dL (3.4-5.0); BILIRUBIN,DIRECT 0.1 mg/dL (0.0-0.2); BILIRUBIN,TOTAL 0.3 mg/dL (0.2-1.0)
--- NOTE | 2020-02-03 23:26 | NUR ---
MEDICATED FOR ELEVATED BP PER ERMD ORDER, PT ARNOL WELL. WILL CONT TO MONITOR.
--- NOTE | 2020-02-03 23:33 | NUR ---
REPORT GIVEN TO YENIFER BALTAZAR FOR FRANSICO.
[2020-02-04] MEDS ORDERED: NITROGLYCERIN 0.4 MG/TAB BOTTLE ONE (00:45)
[2020-02-04] MEDS ORDERED: NITROGLYCERIN 0.4 MG/TAB BOTTLE SL ONE (01:00)
[2020-02-04] MEDS ORDERED: NICARDIPINE IN DEXTROSE,ISO-OS 200 ML IV ONE (01:17)
[2020-02-04] MEDS ORDERED: NICARDIPINE IN NACL, ISO-OSM 200 ML IV PRN (01:30)
[2020-02-04] MEDS ORDERED: MAG HYDROX/AL HYDROX/SIMETH 30 ML UDC PO PRN (02:00)
[2020-02-04] MEDS ORDERED: Z GUARD REMEDY 2 OZ OINT TP PRN (02:00)
[2020-02-04] MEDS ORDERED: MAGNESIUM HYDROXIDE 30 ML UDC PO PRN (02:00)
[2020-02-04] MEDS ORDERED: ZOLPIDEM TARTRATE 5 MG TABLET PO PRN (02:00)
[2020-02-04] MEDS ORDERED: LIDOCAINE 5% (PATCH) 1 EA PATCH TP PRN (02:00)
[2020-02-04] MEDS ORDERED: HYDROCODONE/APAP 5/325MG TABLET PO PRN ×2 (02:00→04:30)
[2020-02-04] MEDS ORDERED: ONDANSETRON HCL/PF 4 MG/2 ML VIAL IVP PRN (02:00)
[2020-02-04] MEDS ORDERED: CLONIDINE HCL 0.1 MG TABLET PO PRN (02:00)
--- NOTE | 2020-02-04 02:00 | NUR ---
TITRATED CARDENE DROP 10MG/HR PER PROTOCOL
--- NOTE | 2020-02-04 02:15 | NUR ---
CARDENE DRIP DISCONTINUED PER ORDER; GIVEN PO CLONIDINE AT THIS TIME
--- NOTE | 2020-02-04 03:59 | NUR ---
REPORT GIVEN TO [address] FOR FRANSICO PT WILL BE TRANSPORTD TO 3RD FLOOR
[2020-02-04 04:00] VITALS: BP 169/86
--- NOTE | 2020-02-04 04:10 | NUR ---
RN NOTE PT ARRIVED TO UNIT A/O X 4, IV TO RT UPPER ARM # 22 PATENT INTACT AND FLUSHING WELL. LEFT ARM FISTULA BRUIT FELT. PT CLEANED AND MADE COMFORTABLE. BED IN LOWEST POSITION, SIDE RAILS UP X 2, CALL LIGHT WITHIN REACH WILL CONT. TO MONITOR PT
--- NOTE | 2020-02-04 04:15 | NUR ---
PT TRANSPORTED TO 3RD FLOOR
[2020-02-04] MEDS: ACETAMINOPHEN 325 MG TABLET PO PRN ×2 (05:20→14:17)
--- NOTE | 2020-02-04 07:00 | NUR ---
PHP LAMP DEVELOPER OPENING NOTE RECEIVED PT AWAKE IN BED AT THIS TIME. A/O X 4, NO SOB NOTED, NO S/S OF ANY ACUTE DISTRESS NOTED. NO C/O PAIN AT THIS TIME. PT ON EXTERNAL TELE LEACHER READING SR IN THE 90S WITH BBB. RESPIRATIONS ARE EVEN AND UNLABORED WITH EQUAL RISE AND FALL IN CHEST. PT ABLE TO MAKE NEEDS KNOWN. IV ACCESS NOTED IN RT UPPER ARM G# 22, PATENT INTACT AND FLUSHING WELL. LEFT ARM FISTULA BRUIT FELT. ASPIRATION AND SAFETY PRECAUTION IN PLACE. BED IN LOWEST LOCKED POSITION, HOB ELEVATED, RAILS UP X 2, CALL LIGHT WITHIN REACH. WILL CONTINUE TO MONITOR
--- NOTE | 2020-02-04 07:11 | NUR ---
RN CLOSING NOTE PT ASLEEP RESTING COMFORTABLY,IN SEMI-FOWLERS POSITION, IV TO RT UPPER ARM # 22 PATENT INTACT AND FLUSHING WELL. LEFT ARM FISTULA BRUIT FELT. BED IN LOWEST POSITION, SIDE RAILS UP X 2, CALL LIGHT WITHIN REACH. ENDORSE TO AM RN DVT PUMPS ORDERED AND DIALYSIS NEEDED FOR PT.
[2020-02-04 07:20] LABS: BASOPHILS % (AUTO) 0.8 % (0.0-2.0); EOSINOPHILS % (AUTO) 3.5 % (0.0-6.0); HEMATOCRIT 23 % (33-45); HEMOGLOBIN 7.6 g/dL (11.5-14.8); LYMPHOCYTES # (AUTO) 0.6 /CMM (0.8-4.8); LYMPHOCYTES % (AUTO) 12.2 % (20.0-44.0); MEAN CORPUSCULAR HGB CONC 33 g/dl (31.0-36.0); MEAN CORPUSCULAR VOLUME 97 fL (82-100); MONOCYTES # (AUTO) 0.6 /CMM (0.1-1.30); MONOCYTES % (AUTO) 13.4 % (2.0-12.0); NEUTROPHILS # (AUTO) 3.2 /CMM (1.8-8.9); NEUTROPHILS % (AUTO) 70.1 % (43.0-81.0); PLATELET COUNT (AUTO) 108 /CMM (150-450); RED BLOOD CELL COUNT(AUTO) 2.41 MIL/uL (4.0-5.2); WHITE BLOOD COUNT (AUTO) 4.6 K/uL (4.3-11.0)
[2020-02-04 07:26] LABS: CALCIUM, SERUM 8.8 mg/dL (8.5-10.1); MAGNESIUM 2.2 mg/dL (1.8-2.4); PHOSPHORUS 4.4 mg/dL (2.5-4.9); POTASSIUM 4.5 mmol/L (3.5-5.1)
[2020-02-04] MEDS ORDERED: PANTOPRAZOLE 40 MG TABLET.DR PO SCH (07:30)
[2020-02-04] MEDS ORDERED: LEVOTHYROXINE SODIUM 50 MCG TABLET PO SCH (07:30)
[2020-02-04 07:31] LABS: CREATININE 9.3 mg/dL (0.6-1.3)
[2020-02-04] MEDS ORDERED: ALBUTEROL FS 2.5 MG/3 ML VIAL.NEB NEB PRN (07:35)
[2020-02-04 08:00] VITALS: BP 197/121
[2020-02-04] MEDS: SEVELAMER CARBONATE 800 MG TABLET PO SCH ×2 (08:34→12:39)
[2020-02-04] MEDS: METOCLOPRAMIDE HCL 10 MG TABLET PO SCH ×2 (08:35→12:39)
[2020-02-04] MEDS: hydrALAZINE HCL 25 MG TABLET PO SCH ×2 (08:58→12:39)
[2020-02-04] MEDS ORDERED: NIFEdipine XL (30MG) 30 MG TAB PO SCH (09:00)
[2020-02-04] MEDS ORDERED: ASPIRIN EC 81 MG TABLET.DR PO SCH (09:00)
[2020-02-04] MEDS ORDERED: ESCITALOPRAM OXALATE (10 MG) 10 MG TABLET PO SCH (09:00)
[2020-02-04] MEDS ORDERED: BISACODYL (5 MG) 5 MG TABLET.DR PO SCH (09:00)
[2020-02-04] MEDS ORDERED: CARVEDILOL 12.5 MG TABLET PO SCH (09:00)
[2020-02-04] MEDS ORDERED: TOPIRAMATE 100 MG TABLET PO SCH (09:00)
[2020-02-04] MEDS ORDERED: POLYETHYLENE GLYCOL 3350 17 GM POWD.PACK PO SCH (09:00)
[2020-02-04] MEDS ORDERED: CALCITRIOL 0.25 MCG CAPSULE PO SCH (09:00)
[2020-02-04] MEDS ORDERED: APIXABAN 5 MG TABLET PO SCH (09:00)
[2020-02-04] MEDS ORDERED: FOLIC ACID 1 MG TABLET PO SCH (09:00)
[2020-02-04 12:06] VITALS: BP 163/96
[2020-02-04 12:39] VITALS: BP 163/96
--- NOTE | 2020-02-04 14:18 | NUR ---
RN NOTES PT C/O OF ACHING PAIN ON LEFT KNEE, PRN TYLENOL 650MG GIVEN ORALLY AT 1417. WILL CONTINUE TO MONITOR PT.
--- NOTE | 2020-02-04 15:00 | NUR ---
PT REQUESTED TO LEAVE AMA. PT STATED "I DONT WANT TO BE HERE". [place], CHARGE NURSE AND DR GAYLE, MADE AWARE. ALL BENEFITS OF CONTINUE TREATMENT AND HOSPITALIZATION EXPLAINED. RISKS AND CONSEQUENCES INVOLVED IN LEAVING THE HOSPITAL EXPLAINED. PT VERBALIZED UNDERSTANDING, SIGNED THE AMA FORM AND LEFT. IV ACCESS BIN RIGHT UPPER ARM REMOVED, PRESSURE APPLIED, SECURE WITH GAUZE AND TAPE. NO SIGN OF BLEEDING/INFILTRATION NOTED. BELONGINGS ACCOUNTED FOR AND SIGNED. PT REFUSED PICTURE TAKEN.
== END 2020-02-04 15:15 | disposition left against medical advice (07) | DRG 199 ==
LOC: ER 21:44 → TELE 02-04 03:53 → MED 02-04 08:56
DX: I16.1 Hypertensive emergency (principal); I13.2 Hypertensive heart and chronic kidney disease with heart failure and with stage 5 chronic kidney disease, or end stage renal disease; N18.6 End stage renal disease; F32.9 Major depressive disorder, single episode, unspecified; E87.5 Hyperkalemia; E03.9 Hypothyroidism, unspecified; D69.6 Thrombocytopenia, unspecified; D63.8 Anemia in other chronic diseases classified elsewhere; H60.91 Unspecified otitis externa, right ear; I25.10 Atherosclerotic heart disease of native coronary artery without angina pectoris; G51.0 Bell's palsy; J45.909 Unspecified asthma, uncomplicated; K21.9 Gastro-esophageal reflux disease without esophagitis; M81.0 Age-related osteoporosis without current pathological fracture; M86.9 Osteomyelitis, unspecified; I50.9 Heart failure, unspecified; Z79.01 Long term (current) use of anticoagulants; Z86.711 Personal history of pulmonary embolism; Z86.718 Personal history of other venous thrombosis and embolism; Z86.73 Personal history of transient ischemic attack (TIA), and cerebral infarction without residual deficits; Z99.2 Dependence on renal dialysis; Z79.899 Other long term (current) drug therapy; I21.A1 Myocardial infarction type 2; G40.909 Epilepsy, unspecified, not intractable, without status epilepticus; G89.4 Chronic pain syndrome; I82.C11 Acute embolism and thrombosis of right internal jugular vein; Z91.19 Patient's noncompliance with other medical treatment and regimen
CPT/HCPCS: 36415; 71045-TC; 80048-TC; 80061-TC; 80076-TC; 83735-TC; 84100-TC; 84484-TC; 84703-TC; 85025-TC; 85730-TC; 86706; 87081-TC; 87340; 93971-TC; C9803-CS; G0378; J0360; J8597

== ENCOUNTER 2020-03-01 20:54 | Emergency (ER) | payer MEDICAID ==
[~2020-03-01] VITALS: Ht 165.1 cm; Wt 74.8 kg
[2020-03-01 20:54] VITALS: BP 183/118
[2020-03-01] MEDS ORDERED: ACETAMINOPHEN ES 500 MG TABLET ONE (21:45)
[2020-03-01] MEDS: ACETAMINOPHEN 325 MG TABLET PO ONE (22:02)
== END 2020-03-01 22:04 | disposition home or self-care (01) ==
LOC: ER 20:57
DX: L03.213 Periorbital cellulitis (principal); I12.0 Hypertensive chronic kidney disease with stage 5 chronic kidney disease or end stage renal disease; N18.6 End stage renal disease; F32.9 Major depressive disorder, single episode, unspecified; G89.4 Chronic pain syndrome; Z99.2 Dependence on renal dialysis; Z98.890 Other specified postprocedural states; Z91.018 Allergy to other foods; Z88.1 Allergy status to other antibiotic agents; Z88.6 Allergy status to analgesic agent; Z88.8 Allergy status to other drugs, medicaments and biological substances; Z79.899 Other long term (current) drug therapy

== ENCOUNTER 2021-03-25 21:49 | Inpatient (IN) | payer MEDICAID ==
[~2021-03-25] VITALS: Ht 165.1 cm; Wt 89.8 kg
[~2021-03-25 21:49] MED LIST changes: -FOLI0.4T2 PO; +FOLI0.4T6 PO
--- NOTE | 2021-03-25 22:16 | NUR ---
BROUGHT IN C/O L SIDE ABD PAIN THAT RADIATE TO THE BACK 03/24. PT ON HEMODIALYSIS MWF LAST TREATMENT ON 03/20 DUE TO NOT BEING FROM THE AREA. PT HYPERTENSIVE AND TACHYCARDIAC PLACED ON PULSE OX AND SUPERVISOR VOLUNTEER SERVICES. MD WAS AT BEDSIDE FOR EVAL.
[2021-03-25] MEDS ORDERED: ONDANSETRON HCL/PF 4 MG/2 ML VIAL ONE (22:27)
[2021-03-25] MEDS ORDERED: MORPHINE SULFATE INJ 2 MG/ML DISP.SYRIN ONE (22:27)
[2021-03-25] MEDS ORDERED: MORPHINE SULFATE INJ 2 MG/ML DISP.SYRIN IV ONE (22:30)
[2021-03-25] MEDS ORDERED: LABETALOL 20 MG/4 ML VIAL IV ONE (22:30)
[2021-03-25] MEDS ORDERED: ONDANSETRON HCL/PF 4 MG/2 ML VIAL IVP ONE (22:30)
[2021-03-25 22:52] LABS: EOSINOPHILS % (AUTO) 6.1 % (0.0-6.0); HEMATOCRIT 24 % (33-45); HEMOGLOBIN 7.9 g/dL (11.5-14.8); LYMPHOCYTES # (AUTO) 0.5 K/uL (0.8-4.8); LYMPHOCYTES % (AUTO) 10.9 % (20.0-44.0); MEAN CORPUSCULAR HGB CONC 32 g/dl (31.0-36.0); MEAN CORPUSCULAR VOLUME 99 fL (82-100); MONOCYTES # (AUTO) 0.5 K/uL (0.1-1.30); MONOCYTES % (AUTO) 10.8 % (2.0-12.0); NEUTROPHILS # (AUTO) 3.3 K/uL (1.8-8.9); NEUTROPHILS % (AUTO) 71.2 % (43.0-81.0); PLATELET COUNT (AUTO) 177 K/uL (150-450); RED BLOOD CELL COUNT(AUTO) 2.47 MIL/uL (4.0-5.2); WHITE BLOOD COUNT (AUTO) 4.7 K/uL (4.3-11.0)
[2021-03-25] MEDS ORDERED: LABETALOL HCL IV 100MG VIAL ONE (22:58)
[2021-03-25 23:08] LABS: CALCIUM, SERUM 7.6 mg/dL (8.5-10.1)
[2021-03-25 23:12] LABS: CREATININE 11.7 mg/dL (0.6-1.3); POTASSIUM 6.3 mmol/L (3.5-5.1)
--- NOTE | 2021-03-25 23:12 | NUR ---
k 6.3 cr 11.7
[2021-03-25] MEDS ORDERED: HYDROMORPHONE 1 MG/1 ML DISP.SYRIN ONE (23:14)
[2021-03-25] MEDS ORDERED: DEXTROSE 50%-WATER 50 ML DISP.SYRIN IV ONE (23:30)
[2021-03-25] MEDS ORDERED: SODIUM BICARBONATE SYR 50 MEQ/50 ML DISP.SYRIN IV ONE (23:30)
[2021-03-25] MEDS ORDERED: CALCIUM CHLORIDE 1,000 MG/10 ML DISP.SYRIN IV ONE (23:30)
[2021-03-25] MEDS: HYDROMORPHONE 1 MG/1 ML DISP.SYRIN IV ONE ×2 (23:30→23:31)
[2021-03-25] MEDS ORDERED: FUROSEMIDE 40 MG/4 ML VIAL IV ONE (23:30)
[2021-03-25] MEDS ORDERED: HYDROMORPHONE 1 MG/1 ML DISP.SYRIN IV ONE (23:30)
[2021-03-25] MEDS ORDERED: SODIUM POLYSTYRENE SULFONATE 15 G/60 ML BOTTLE PO ONE (23:30)
[2021-03-25] MEDS ORDERED: INSULIN REGULAR, HUMAN 100 UNIT/ML 10 ML VIAL IV ONE (23:30)
[2021-03-25] MEDS ORDERED: FUROSEMIDE 20 MG/2 ML VIAL ONE (23:32)
[2021-03-25] MEDS ORDERED: SODIUM POLYSTYRENE SULFONATE 15 G/60 ML BOTTLE ONE (23:32)
[2021-03-25] MEDS ORDERED: SODIUM BICARBONATE SYR 50 MEQ/50 ML DISP.SYRIN ONE (23:32)
[2021-03-25] MEDS ORDERED: CALCIUM CHLORIDE 1,000 MG/10 ML DISP.SYRIN ONE (23:33)
[2021-03-25] MEDS ORDERED: INSULIN REGULAR, HUMAN 100 UNIT/ML 10 ML VIAL ONE (23:33)
[2021-03-25] MEDS ORDERED: DEXTROSE 50%-WATER 50 ML DISP.SYRIN ONE (23:33)
[2021-03-26] VITALS (36 sets, daily range): BP systolic 131–218; BP diastolic 58–146
--- NOTE | 2021-03-26 00:09 | NUR ---
SAM GOSS FILM LOADER AT BED SIDE, REQUESTED AN ORDER FOR EITHER MID OR PICC LINE HOUSE SUP MADE AWARE OF ICU BED
[2021-03-26] MEDS ORDERED: hydrALAZINE HCL IV 20 MG VIAL ONE (00:10)
--- NOTE | 2021-03-26 00:12 | NUR ---
ICU BED 261
[2021-03-26] MEDS ORDERED: hydrALAZINE HCL IV 20 MG VIAL IV ONE (00:30)
--- NOTE | 2021-03-26 00:42 | NUR ---
GAVE REPORT TO RN
[2021-03-26] MEDS ORDERED: LIDOCAINE 5% (PATCH) 1 EA PATCH TP PRN (01:00)
[2021-03-26] MEDS ORDERED: NICARDIPINE HCL 40 MG in IV NS 0.9% 184 ML IV PRN (01:00)
[2021-03-26] MEDS ORDERED: ONDANSETRON HCL/PF 4 MG/2 ML VIAL IVP PRN (01:00)
[2021-03-26] MEDS ORDERED: LEVALBUTEROL HCL NEB 1.25 MG/0.5 ML VIAL.NEB NEB PRN (01:00)
[2021-03-26] MEDS ORDERED: Z GUARD REMEDY 2 OZ OINT TP PRN (01:00)
--- NOTE | 2021-03-26 01:08 | NUR ---
PT TRANSFERED PER ACLS PROTOCOL
--- NOTE | 2021-03-26 01:15 | NUR ---
FOUNDER AND CHIEF TECHNICAL OFFICER NOTE RECEIVED PATIENT VIA GURNEY. STOOD AND AMBULATED TO BED WITH STAND BY ASSIST. A/OX4, PATIENT IS VERY DROWSY. TOLERATING ROOM AIR. RESPIRATIONS ARE EVEN, SOB AFTER GETTING IN BED. STATES SHE IS IN PAIN, INFORMED HER THAT I AM NOT ABLE TO GIVE PAIN MEDICATION FOR DILAUDID D/T Q6HR AND LAST RECEIVED IN ER 2 HOURS AGO. PATIENT CONNECTED TO MONITOR, PULSE OX. TELE MONITOR READS SINUS RHYTHM, 1ST DEGREE AV BLOCK WITH BBB. ELEVATED BP, WILL START AUR[place]A DRIP. IV ACCESS IN RFA #20 PATENT AND SALINE LOCKED. PATIENT HAS A KATERIN AV FISTULA. LAST H D 03/20. INATAL PHYSICAL ASSESSMENT DONE AT THIS TIME. COULD NOT COMPLETE SKIN ASSESSMENT D/T PATIENT DID NOT WANT TO REMOVE PANTS, PATIENT STATES SHE DOES NOT HAVE ANY SKIN ISSUES. BED IS LOW AND LOCKED, HOB ELEVATED IN HIGH FOWLERS, SIDE RIAL SUP X3, CALL LIGHT WITHIN REACH, INFORMED ON USE.
[2021-03-26] MEDS ORDERED: NICARDIPINE IN DEXTROSE,ISO-OS 200 ML IV ONE (01:34)
[2021-03-26] MEDS ORDERED: NICARDIPINE HCL 20 MG in IV NS 0.9% 184 ML IV PRN (02:00)
[2021-03-26 04:46] LABS: BASOPHILS # (AUTO) 0.1 K/uL (0.0-0.2); BASOPHILS % (AUTO) 1.1 % (0.0-2.0); EOSINOPHILS % (AUTO) 4.1 % (0.0-6.0); HEMATOCRIT 24 % (33-45); HEMOGLOBIN 7.9 g/dL (11.5-14.8); LYMPHOCYTES # (AUTO) 0.6 K/uL (0.8-4.8); LYMPHOCYTES % (AUTO) 7.8 % (20.0-44.0); MEAN CORPUSCULAR HGB CONC 33 g/dl (31.0-36.0); MEAN CORPUSCULAR VOLUME 99 fL (82-100); MONOCYTES % (AUTO) 13.2 % (2.0-12.0); NEUTROPHILS # (AUTO) 5.4 K/uL (1.8-8.9); NEUTROPHILS % (AUTO) 73.8 % (43.0-81.0); PLATELET COUNT (AUTO) 244 K/uL (150-450); WHITE BLOOD COUNT (AUTO) 7.4 K/uL (4.3-11.0)
[2021-03-26 04:59] LABS: CALCIUM, SERUM 8.2 mg/dL (8.5-10.1); MAGNESIUM 2.2 mg/dL (1.8-2.4); PHOSPHORUS 6.2 mg/dL (2.5-4.9); POTASSIUM 4.9 mmol/L (3.5-5.1)
[2021-03-26 05:22] LABS: CREATININE 11.7 mg/dL (0.6-1.3)
[2021-03-26] MEDS ORDERED: DEXTROSE 50%-WATER 50 ML DISP.SYRIN ONE (05:27)
[2021-03-26] MEDS ORDERED: DEXTROSE 50%-WATER 50 ML DISP.SYRIN IVP ONE (05:30)
--- NOTE | 2021-03-26 05:30 | NUR ---
RN NOTE LAB CALLED FOR CRITICAL LAB GLUCOSE 30, CR 11.7. ACCU CHECK BLOOD SUGAR IS 20. CALLED CLINICAL ACCOUNT EXECUTIVE SAM GOSS NP, INFORMED HIM OF LABS. RECEIVED ORDER FOR D50 NOW. PATIENT IS DROWSY BUT ALERT, I WAS ALSO ABLE TO GIVE 3 APPLE JUICE, ONE ORANGE JUICE WITH SUGAR. WILL REASSESS BLOOD SUGAR IN 30 MINS POST D50
[2021-03-26] MEDS: CLONIDINE HCL 0.1 MG TABLET PO SCH ×3 (06:02→20:46)
[2021-03-26] MEDS ORDERED: DEXTROSE 50%-WATER 50 ML DISP.SYRIN IVP STA (06:14)
--- NOTE | 2021-03-26 06:14 | NUR ---
RN NOTE REASSESS BLOOD SUGAR IS 61. INFORMED SAM GOSS NP OF INTERVENTIONS TAKEN AND NEW BLOOD SUGAR. RECEIVED ORDER FOR ANOTHER D50. ORDER READ BACK, NOTED AND CARRIED OUT.
--- NOTE | 2021-03-26 07:10 | NUR ---
RN NOTE RECEIVED PT SITTING IN BED. A/O X3-4. DROWSY. NO SOB OR ANY RESPIRATORY DISTRESS NOTED. TELE MONITOR SHOWS TO BE SINUS RHYTHM 1ST DEGREE AV BLOCK. IV ACCESS ON R FA #20 INTACT, PATENT AND FLUSHED. COMMODE AT BEDSIDE. SAFETY MEASURES IN PLACE. CALL LIGHT WITHIN REACH. BED LOCKED AND IN LOWEST POSITION WITH SIDE RAILS UP X3. HOB IN SEMI FOWLERS. WILL CONTINUE TO MONITOR.
--- NOTE | 2021-03-26 07:19 | NUR ---
RN NOTE PATIENT IS RESTING IN BED. A/OX3 CONTINUES TO BE DROWSY. NO RESP DISTRESS NOTED. TRIED TO CHANGE O2 SENSOR TO PATIENTS EAR BUT SHE REMOVED. PATIENT TELE CONTINUES TO BE SINUS RHYTHM 1ST DEGREE AVB. EPISODE OF HYPOGLYCEMIA, D50 GIVEN X2, BS NOW 110. IV MAINTAINED IN RFA#20. BSC COMMODE AT BEDSIDE. PATIENT DID NOT URINATE OR HAVE A BM DURING SHIFT. BED IS LOW AND LOCKED, HOB ELEVATED IN SEMI FOWLERS, SIDE RIAL UP X3, CALL LIGHT WITHIN REACH. WILL ENDORSE TO ONCOMING SHIFT.
[2021-03-26] MEDS: LEVOTHYROXINE SODIUM 50 MCG TABLET PO SCH (08:01)
[2021-03-26] MEDS: SEVELAMER CARBONATE 800 MG TABLET PO SCH ×3 (08:01→17:50)
[2021-03-26] MEDS: PANTOPRAZOLE 40 MG TABLET.DR PO SCH (08:02)
[2021-03-26] MEDS: POLYETHYLENE GLYCOL 3350 17 GM POWD.PACK PO SCH (08:38)
[2021-03-26] MEDS: CALCITRIOL 0.25 MCG CAPSULE PO SCH (08:39)
[2021-03-26] MEDS: FOLIC ACID 1 MG TABLET PO SCH (08:39)
[2021-03-26] MEDS: ASPIRIN EC 81 MG TABLET.DR PO SCH (08:39)
[2021-03-26] MEDS: BISACODYL (5 MG) 5 MG TABLET.DR PO SCH (08:39)
[2021-03-26] MEDS: ESCITALOPRAM OXALATE (10 MG) 10 MG TABLET PO SCH (08:39)
[2021-03-26] MEDS: hydrALAZINE HCL 25 MG TABLET PO SCH ×4 (08:40→20:50)
[2021-03-26] MEDS: CARVEDILOL 12.5 MG TABLET PO SCH ×2 (08:40→20:47)
[2021-03-26] MEDS: APIXABAN 5 MG TABLET PO SCH ×2 (08:42→20:49)
[2021-03-26] MEDS: TOPIRAMATE 100 MG TABLET PO SCH ×2 (08:42→20:51)
[2021-03-26] MEDS: METOCLOPRAMIDE HCL 10 MG TABLET PO SCH ×4 (08:43→21:22)
[2021-03-26] MEDS: HYDROMORPHONE INJ 2 MG/ML DISP.SYRIN IV PRN ×3 (09:41→22:12)
--- NOTE | 2021-03-26 10:46 | NUR ---
RN NOTES DR HILLMAN CALLED HD NURSE TO PUT IN ORDERS FOR HEMODIALYSIS STAT. ORDERS PLACED WITH THE HELP OF HD NURSE NIGHAT MART RN.
--- NOTE | 2021-03-26 10:50 | NUR ---
RN NOTES PT STARTED REMOVING BF CUFF, TELE MONITOR. STARTED WALKING INSIDE THE ROOM. SAYING SHE WANNA GET DRESSED AND LEAVE. EXPLAINED THE IMPORTANCE OF COMPLIANCE. STILL INSISTED ON GOING AMA. MADE AWARE.
--- NOTE | 2021-03-26 11:00 | NUR ---
RN NOTES PT IS VERY NON COMPLIANT. REMOVES BP CUFF AND TELE MONITOR. EXPLAINED IMPORTANCE OF MONITORING, PT STILL IS NON COMPLIANT.
--- NOTE | 2021-03-26 11:30 | NUR ---
RN NOTES PT STARTED HD. VS STABLE.
[2021-03-26] MEDS: GUAIFENESIN LA 600 MG TABLET.SA PO SCH ×2 (12:18→20:48)
--- NOTE | 2021-03-26 14:30 | NUR ---
RN NOTES HD DONE. 3300 ML OUTPUT VS STABLE.
[2021-03-26] MEDS ORDERED: EPOETIN ALFA-EPBX 4,000 UNIT/ML VIAL IV PRN (15:30)
--- NOTE | 2021-03-26 16:55 | NUR ---
RN NOTES PT KEEPS ON LEANING TOWARDS BEDSIDE TABLE. EXPLAINED RISK FOR FALL. PT IS VERY NON COMPLIANT. STILL LEANING TOWARDS THE TABLE WHILE SLEEPING.
--- NOTE | 2021-03-26 18:07 | NUR ---
CANNOT PERFORM DUPLEX STUDY ON LOWER LEFT EXTREMITY. PT REFUSED TO STAY IN BED AND KEEPS LEANING ON BEDSIDE TABLE. NURSE AWARE.
--- NOTE | 2021-03-26 18:45 | NUR ---
RN NOTES TRANSFERRED PT TO TELE ROOM 111-1 PER PROTOCOL. REPORT GIVEN TO NATASHA STREET FOR FRANSICO. VS STABLE.
--- NOTE | 2021-03-26 18:45 | NUR ---
RN NOTE RECEIVED PATIENT FROM ICU TO ROOM 111-1, WILL CONTINUE PLAN OF CARE, WLL ENDORSE TO NOC SHIFT.
[2021-03-27] VITALS: BP 148/96
[2021-03-27] MEDS: HYDROMORPHONE INJ 2 MG/ML DISP.SYRIN IV PRN ×4 (03:59→22:46)
[2021-03-27 04:00] VITALS: BP 142/97
[2021-03-27] MEDS: CLONIDINE HCL 0.1 MG TABLET PO SCH ×3 (04:59→21:00)
--- NOTE | 2021-03-27 05:47 | NUR ---
ENDING NOTES ALERT AND ORIENTATED X4 SITS ON THE EDGE OF THE BED THRU THE NIGHT, HAS BEEN DOZING OFF AND ON TELE READS ST 92 - 120 BLOOD PRESSURE THRU THE NIGHT RAN HIGH 171/100 HR 75 2 MN 148/96 HR 101 2 0400 BLOOD PRESSURE 142/97 HR 117 PLACED 02 NC ON HERE D/T THE RAPID HEART RATE SATS 97 - 98% SHE WAS LASY hd 03/26 AND THEY TOOK OFF 3330-. SHE HAS GENERALIZED EDEMA FACIAL EDEMA MEAGAN ORBITAL EDEMA INSTRUCTED HER TO WATCH HOW MUCH SHE DRINKS SLOW DOWN! SHE IS PLEASENT AND COMPLIANT
[2021-03-27 08:00] VITALS: BP 131/92
[2021-03-27] MEDS: SEVELAMER CARBONATE 800 MG TABLET PO SCH ×3 (08:56→17:48)
[2021-03-27] MEDS: ESCITALOPRAM OXALATE (10 MG) 10 MG TABLET PO SCH (08:58)
[2021-03-27] MEDS: TOPIRAMATE 100 MG TABLET PO SCH ×2 (08:58→21:40)
[2021-03-27] MEDS: hydrALAZINE HCL 25 MG TABLET PO SCH ×3 (08:58→17:47)
[2021-03-27] MEDS: FOLIC ACID 1 MG TABLET PO SCH (08:59)
[2021-03-27] MEDS: GUAIFENESIN LA 600 MG TABLET.SA PO SCH ×2 (08:59→21:39)
[2021-03-27] MEDS: CARVEDILOL 12.5 MG TABLET PO SCH ×2 (08:59→21:00)
[2021-03-27] MEDS: PANTOPRAZOLE 40 MG TABLET.DR PO SCH (09:00)
[2021-03-27] MEDS: POLYETHYLENE GLYCOL 3350 17 GM POWD.PACK PO SCH ×2 (09:00→09:03)
[2021-03-27] MEDS: BISACODYL (5 MG) 5 MG TABLET.DR PO SCH (09:00)
[2021-03-27] MEDS: APIXABAN 5 MG TABLET PO SCH ×2 (09:02→22:00)
[2021-03-27] MEDS: METOCLOPRAMIDE HCL 10 MG TABLET PO SCH ×4 (09:02→21:40)
[2021-03-27] MEDS: ASPIRIN EC 81 MG TABLET.DR PO SCH (09:02)
[2021-03-27] MEDS: LEVOTHYROXINE SODIUM 50 MCG TABLET PO SCH (09:03)
[2021-03-27] MEDS: CALCITRIOL 0.25 MCG CAPSULE PO SCH (09:13)
[2021-03-27] MEDS: ISOSORBIDE DINITRATE (20MG) 20 MG TABLET PO SCH ×3 (09:15→21:00)
[2021-03-27 09:43] LABS: ALBUMIN 3.5 g/dL (3.4-5.0); BILIRUBIN,TOTAL 0.4 mg/dL (0.2-1.0); CALCIUM, SERUM 7.5 mg/dL (8.5-10.1); POTASSIUM 4.6 mmol/L (3.5-5.1); TOTAL PROTEIN, SERUM 7.4 g/dL (6.4-8.2)
[2021-03-27 09:46] LABS: CREATININE 9.4 mg/dL (0.6-1.3)
[2021-03-27 12:00] VITALS: BP 131/92
[2021-03-27 16:28] VITALS: BP 103/64
--- NOTE | 2021-03-27 19:30 | NUR ---
RN NOTE RECEIVED PATIENT IN BED. A/OX3. PATIENT WAS ON 2L NASAL CANNULA BUT REMOVED IT, TOLERATING ROOM AIR. RESPIRATIONS ARE EVEN AND UNLABORED. NO S/S SOB NOTED. C/O PAIN, INFORMED HER HER PAIN MEDICATION IS NOT DUE AT THIS TIME, PATIENT SAYS SHE CAN TOLERATE PAIN FOR NOW. IN NO APPARENT DISTRESS. IV ACCESS IN RFA#22 PATENT AND SALINE LOCKED. KATERIN AV FISTULA. BED IS LOW AND LOCKED, HOB ELEVATED IN HIGH FOWLERS, SIDE RIAL SUP X2, CALL LIGHT WITHIN REACH.
[2021-03-27 20:00] VITALS: BP 111/63
--- NOTE | 2021-03-27 21:22 | NUR ---
RN NOTE PATIENT REFUSED BP MEDS TONIGHT. DID NOT ADMINISTER CATAPRESS 0.3MG, COREG 25 MG AND ISODRIL 20MG. BP 111/63 HR 74. PATIENT STATES SHE DOESNT TAKE HER BP MEDS IF IT IS THIS LOW.
[2021-03-28 04:00] VITALS: BP 113/63
[2021-03-28] MEDS: HYDROMORPHONE INJ 2 MG/ML DISP.SYRIN IV PRN ×3 (04:49→18:12)
[2021-03-28] MEDS: CLONIDINE HCL 0.1 MG TABLET PO SCH ×3 (05:00→20:24)
[2021-03-28] MEDS: ISOSORBIDE DINITRATE (20MG) 20 MG TABLET PO SCH ×3 (06:25→21:05)
--- NOTE | 2021-03-28 07:39 | NUR ---
RN OPENING NOTE PATIENT IN BED, AWAKE. ON RA WITH NO SIGNS OF LABORED BREATHING AT THIS TIME. A&OX4. L UA AV FISTULA AND R FA 22G IN PLACE. BED LOCKED AND IN LOWEST POSITION, 3 SIDE RAILS UP, CALL LIGHT WITHIN REACH. ALL SAFETY MEASURES IMPLEMENTED. WILL CONTINUE TO MONITOR.
--- NOTE | 2021-03-28 07:45 | NUR ---
RN NOTE RESTING IN BED. A/OX3. TOLERATING ROOM AIR. NO RESP DISTRESS. MANAGED PAIN WITH DILUADID. IV RFA#22 KATERIN AV FISTULA. PATIENT DID HAVE AN EPISODE OF NOSE BLEED AFTER PICKING HER NOSE, SCANT AMOUNT OF BLOOD. BED REMAINS LOW AND LOCKED, HOB ELEVATED IN HIGH FOWLERS, SIDE RIALS UP X2, CALL LIGHT WITHIN REACH.
[2021-03-28 08:00] VITALS: BP 124/77
--- NOTE | 2021-03-28 08:00 | NUR ---
ms rn note patient in bed , alert oriented x3, on ra no sob noted at this time, able to to go to br able to urinae , lt ua av fistula in place and rt fa hl intact and flushed well , all needs attended nit in distress, plan of care discussed with patient, call light within reach
[2021-03-28] MEDS: SEVELAMER CARBONATE 800 MG TABLET PO SCH ×3 (08:10→17:02)
[2021-03-28] MEDS ORDERED: LEVO50TA8 PO (08:16)
[2021-03-28] MEDS ORDERED: ISOS20TA8 PO (08:16)
[2021-03-28] MEDS ORDERED: ALBU18HF2 IH (08:16)
[2021-03-28] MEDS ORDERED: APIX5TAB PO (08:16)
[2021-03-28] MEDS ORDERED: CLON0.1T PO (08:16)
[2021-03-28] MEDS ORDERED: CARV25TA PO (08:16)
[2021-03-28] MEDS ORDERED: NIFE90TA61 PO (08:16)
[2021-03-28] MEDS ORDERED: HYDR-4076 PO (08:16)
[2021-03-28] MEDS ORDERED: ASPI-1420 PO (08:16)
[2021-03-28] MEDS: GUAIFENESIN LA 600 MG TABLET.SA PO SCH ×2 (08:24→21:05)
[2021-03-28] MEDS: FOLIC ACID 1 MG TABLET PO SCH (08:24)
[2021-03-28] MEDS: CARVEDILOL 12.5 MG TABLET PO SCH ×2 (08:24→21:05)
[2021-03-28] MEDS: CALCITRIOL 0.25 MCG CAPSULE PO SCH (08:24)
[2021-03-28] MEDS: POLYETHYLENE GLYCOL 3350 17 GM POWD.PACK PO SCH ×2 (08:24→08:42)
[2021-03-28] MEDS: BISACODYL (5 MG) 5 MG TABLET.DR PO SCH (08:24)
[2021-03-28] MEDS: TOPIRAMATE 100 MG TABLET PO SCH ×2 (08:26→21:05)
[2021-03-28] MEDS: PANTOPRAZOLE 40 MG TABLET.DR PO SCH (08:26)
[2021-03-28] MEDS: ASPIRIN EC 81 MG TABLET.DR PO SCH (08:26)
[2021-03-28] MEDS: APIXABAN 5 MG TABLET PO SCH ×2 (08:26→21:06)
[2021-03-28] MEDS: ESCITALOPRAM OXALATE (10 MG) 10 MG TABLET PO SCH (08:26)
[2021-03-28] MEDS: LEVOTHYROXINE SODIUM 50 MCG TABLET PO SCH (08:28)
[2021-03-28] MEDS: METOCLOPRAMIDE HCL 10 MG TABLET PO SCH ×4 (08:28→21:05)
[2021-03-28] MEDS: hydrALAZINE HCL 25 MG TABLET PO SCH ×3 (08:41→17:03)
--- NOTE | 2021-03-28 10:21 | NUR ---
ms rn note seen by dr candi allen to give Benadryl prior hd , ok to d\c home, received called from hd nurse notified that patient will have hd today also charge nurse notified disease case manager about hd schedule , will f\u Addendum: 03/28/21 at 1224 by GORGE GATICA RN Benadryl iv given as ordered prior hd
[2021-03-28] MEDS ORDERED: diphenhydrAMINE HCL 50 MG/ML VIAL IV PRN (10:30)
[2021-03-28 12:00] VITALS: BP 119/65
--- NOTE | 2021-03-28 13:07 | NUR ---
ms rn note called to pharmacy [facility] ,new px is preparing to to cigar packer and picker
--- NOTE | 2021-03-28 13:52 | NUR ---
ms rn note on hd at this time blood test drown by hd nurse
[2021-03-28 15:13] LABS: ALBUMIN 3.5 g/dL (3.4-5.0); BILIRUBIN,TOTAL 0.6 mg/dL (0.2-1.0); CALCIUM, SERUM 7.3 mg/dL (8.5-10.1); POTASSIUM 5.1 mmol/L (3.5-5.1); TOTAL PROTEIN, SERUM 7.2 g/dL (6.4-8.2)
[2021-03-28 15:40] LABS: CREATININE 11.1 mg/dL (0.6-1.3)
[2021-03-28 16:00] VITALS: BP 118/80
--- NOTE | 2021-03-28 18:18 | NUR ---
RN NOTE DILAUDID GIVEN IM ONCE PER DR. JACKSON, DUE TO PATIENT'S SEVERE PAIN AND WAITING FOR MIDLINE NURSE FOR IV ACCESS.
--- NOTE | 2021-03-28 18:47 | NUR ---
RN CLOSING NOTE PATIENT IN BED, AWAKE, A&OX4. ON ROOM AIR WITH NO SIGNS OF LABORED BREATHING AT THIS TIME. L UA AV FISTULA IN PLACE. HD TODAY, 3L REMOVED. PATIENT TOLERATED HD WELL. BED LOCKED AND IN LOWEST POSITION, 3 SIDE RAILS UP, CALL LIGHT WITHIN REACH. ALL SAFETY MEASURES IMPLEMENTED. WILL ENDORSE TO STRIPER SPRAY GUN NURSE.
[2021-03-28 20:00] VITALS: BP 133/77
[2021-03-29] MEDS: HYDROMORPHONE INJ 2 MG/ML DISP.SYRIN IV PRN ×4 (00:14→18:44)
[2021-03-29] MEDS ORDERED: diphenhydrAMINE HCL 50 MG CAPSULE PO ONE (02:30)
[2021-03-29 04:00] VITALS: BP 136/75
[2021-03-29] MEDS: ISOSORBIDE DINITRATE (20MG) 20 MG TABLET PO SCH ×2 (05:49→12:41)
[2021-03-29] MEDS: CLONIDINE HCL 0.1 MG TABLET PO SCH ×2 (05:50→12:44)
[2021-03-29] MEDS: LEVOTHYROXINE SODIUM 50 MCG TABLET PO SCH (07:43)
[2021-03-29] MEDS: SEVELAMER CARBONATE 800 MG TABLET PO SCH ×3 (07:44→17:36)
[2021-03-29] MEDS: PANTOPRAZOLE 40 MG TABLET.DR PO SCH (07:44)
[2021-03-29] MEDS: METOCLOPRAMIDE HCL 10 MG TABLET PO SCH ×3 (07:44→17:36)
[2021-03-29 08:01] VITALS: BP 135/73
[2021-03-29] MEDS: hydrALAZINE HCL 25 MG TABLET PO SCH ×3 (08:29→17:36)
[2021-03-29] MEDS: CARVEDILOL 12.5 MG TABLET PO SCH (08:29)
[2021-03-29] MEDS: FOLIC ACID 1 MG TABLET PO SCH (08:30)
[2021-03-29] MEDS: CALCITRIOL 0.25 MCG CAPSULE PO SCH (08:30)
[2021-03-29] MEDS: TOPIRAMATE 100 MG TABLET PO SCH (08:30)
[2021-03-29] MEDS: GUAIFENESIN LA 600 MG TABLET.SA PO SCH (08:30)
[2021-03-29] MEDS: ESCITALOPRAM OXALATE (10 MG) 10 MG TABLET PO SCH (08:30)
[2021-03-29] MEDS: ASPIRIN EC 81 MG TABLET.DR PO SCH (08:30)
[2021-03-29] MEDS: APIXABAN 5 MG TABLET PO SCH (08:34)
[2021-03-29] MEDS: POLYETHYLENE GLYCOL 3350 17 GM POWD.PACK PO SCH (09:00)
[2021-03-29] MEDS: BISACODYL (5 MG) 5 MG TABLET.DR PO SCH (09:00)
[2021-03-29 12:00] VITALS: BP 106/64
[2021-03-29 17:36] VITALS: BP 152/98
--- NOTE | 2021-03-29 18:30 | NUR ---
RN NOTES NO NOTABLE CHANGES DURING SHIFT. PATIENT DISCHARGED TO HOME. SALBADOR MIDLINE 18G REMOVED, DRESSING APPLIED. BELONGINGS LIST AND DISCHARGED PAPERWORK SIGNED. PT EDUCATION GIVEN AND VERBALIZATION OF UNDERSTANDING EXPRESSED.
== END 2021-03-29 18:31 | disposition home or self-care (01) | DRG 194 ==
LOC: ER 21:55 → ICU 03-26 00:12 → TELE1 03-26 18:32 → MEDSG1 03-27 08:19
PROVIDERS: ADMIT Nurse Practitioner Family; ATTEND Internal Medicine
PROC: 5A1D70Z Performance of Urinary Filtration, Intermittent, Less than 6 Hours Per Day (ICD-10-PCS; principal; 2021-03-26)
PROC: 05H933Z Insertion of Infusion Device into Right Brachial Vein, Percutaneous Approach (ICD-10-PCS; 2021-03-28)
DX: I13.2 Hypertensive heart and chronic kidney disease with heart failure and with stage 5 chronic kidney disease, or end stage renal disease (principal); D63.1 Anemia in chronic kidney disease; N18.6 End stage renal disease; R18.8 Other ascites; I48.91 Unspecified atrial fibrillation; G51.0 Bell's palsy; E03.9 Hypothyroidism, unspecified; Z79.01 Long term (current) use of anticoagulants; I16.1 Hypertensive emergency; I50.9 Heart failure, unspecified; E87.5 Hyperkalemia; Z99.2 Dependence on renal dialysis; Z86.73 Personal history of transient ischemic attack (TIA), and cerebral infarction without residual deficits; Z20.822 Contact with and (suspected) exposure to COVID-19; J45.909 Unspecified asthma, uncomplicated; K21.9 Gastro-esophageal reflux disease without esophagitis; G89.4 Chronic pain syndrome; Z88.6 Allergy status to analgesic agent; Z88.1 Allergy status to other antibiotic agents; Z91.041 Radiographic dye allergy status; Z88.5 Allergy status to narcotic agent; Z91.013 Allergy to seafood; Z79.82 Long term (current) use of aspirin; Z79.899 Other long term (current) drug therapy; I25.10 Atherosclerotic heart disease of native coronary artery without angina pectoris; Z86.718 Personal history of other venous thrombosis and embolism; Z91.19 Patient's noncompliance with other medical treatment and regimen; M89.9 Disorder of bone, unspecified; M81.0 Age-related osteoporosis without current pathological fracture; E66.9 Obesity, unspecified; Z68.32 Body mass index [BMI] 32.0-32.9, adult; J98.11 Atelectasis; F32.A Depression, unspecified; Z86.711 Personal history of pulmonary embolism
CPT/HCPCS: 36415; 71045-TC; 80048-TC; 80053-TC; 82962-TC; 83735-TC; 84100-TC; 84484-TC; 85025-TC; 85730-TC; 86704; 86705; 86706; 87081-TC; 87340; 90935-TC; C9803; G0378; J0360; J1170; J1200; J1815; J1940; J2270; J2405; J3490; J8597; Q0163

== ENCOUNTER 2021-04-01 17:26 | Emergency (ER) | payer MEDICAID ==
[~2021-04-01] VITALS: Ht 165.1 cm; Wt 89.4 kg
[~2021-04-01 17:26] MED LIST changes: +CLON0.1T PO; -CLON0.2T PO; +ISOS20TA8 PO
--- NOTE | 2021-04-01 19:10 | NUR ---
To ER bed 1, c/o sob, L sided chest pain x 2 days. 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 connected to monitor
--- NOTE | 2021-04-01 19:15 | NUR ---
LAB AT BEDSIDE
--- NOTE | 2021-04-01 19:19 | NUR ---
XRAY AT BEDSIDE
[2021-04-01 19:54] LABS: BASOPHILS # (AUTO) 0.1 K/uL (0.0-0.2); EOSINOPHILS % (AUTO) 7.9 % (0.0-6.0); HEMATOCRIT 25 % (33-45); HEMOGLOBIN 7.9 g/dL (11.5-14.8); LYMPHOCYTES # (AUTO) 0.4 K/uL (0.8-4.8); LYMPHOCYTES % (AUTO) 7.9 % (20.0-44.0); MEAN CORPUSCULAR HGB CONC 32 g/dl (31.0-36.0); MEAN CORPUSCULAR VOLUME 101 fL (82-100); MONOCYTES # (AUTO) 0.7 K/uL (0.1-1.30); MONOCYTES % (AUTO) 13.3 % (2.0-12.0); NEUTROPHILS # (AUTO) 3.4 K/uL (1.8-8.9); NEUTROPHILS % (AUTO) 68.9 % (43.0-81.0); PLATELET COUNT (AUTO) 162 K/uL (150-450); RED BLOOD CELL COUNT(AUTO) 2.44 MIL/uL (4.0-5.2); WHITE BLOOD COUNT (AUTO) 4.9 K/uL (4.3-11.0)
[2021-04-01 20:02] LABS: CALCIUM, SERUM 8.1 mg/dL (8.5-10.1); POTASSIUM 5.4 mmol/L (3.5-5.1)
[2021-04-01 20:05] LABS: CREATININE 12.7 mg/dL (0.6-1.3)
--- NOTE | 2021-04-01 20:05 | NUR ---
PER LAB, BUN 85 AND CREATININE 12.7
--- NOTE | 2021-04-01 21:21 | NUR ---
Patient discharged to home in stable condition. Written and verbal after care instructions given. Patient verbalizes understanding of instruction. Pt ambulatory with a steady gait
[2021-04-01 21:25] VITALS: BP 170/99
== END 2021-04-01 21:21 | disposition home or self-care (01) ==
LOC: ER 17:29
DX: R07.89 Other chest pain (principal); F32.9 Major depressive disorder, single episode, unspecified; G40.909 Epilepsy, unspecified, not intractable, without status epilepticus; I12.0 Hypertensive chronic kidney disease with stage 5 chronic kidney disease or end stage renal disease; N18.6 End stage renal disease; Z99.2 Dependence on renal dialysis; Z98.890 Other specified postprocedural states; Z88.1 Allergy status to other antibiotic agents; Z88.6 Allergy status to analgesic agent; Z91.018 Allergy to other foods; Z79.899 Other long term (current) drug therapy; Z60.2 Problems related to living alone
CPT/HCPCS: 36415; 71045-TC; 80048-TC; 84484-TC; 85025-TC

== ENCOUNTER 2021-04-21 07:31 | Inpatient (IN) | payer MEDICAID ==
[~2021-04-21] VITALS: Ht 154.9 cm; Wt 86.0 kg
--- NOTE | 2021-04-21 07:44 | NUR ---
TO ER BED 6, BIB SELF C/O CONSTANT CHEST PAIN SINCE 7AM. AAOX3, BREATHING EVEN AND NONLABORED, CONNECTED TO MONITOR
[2021-04-21] MEDS ORDERED: ONDANSETRON HCL/PF 4 MG/2 ML VIAL IVP ONE (08:00)
[2021-04-21] MEDS ORDERED: MORPHINE SULFATE INJ 2 MG/ML DISP.SYRIN IV ONE (08:00)
[2021-04-21] MEDS ORDERED: ONDANSETRON HCL/PF 4 MG/2 ML VIAL ONE (08:54)
[2021-04-21] MEDS ORDERED: MORPHINE SULFATE INJ 4 MG/ML DISP.SYRIN ONE (08:55)
--- NOTE | 2021-04-21 09:05 | NUR ---
covid swab done and sent to the lab
[2021-04-21] MEDS ORDERED: ALBU18HF2 IH (09:38)
[2021-04-21] MEDS ORDERED: NIFE30TA91 PO (09:38)
[2021-04-21] MEDS ORDERED: APIX2.5T PO (09:38)
[2021-04-21] MEDS ORDERED: MONT10TA22 PO (09:38)
[2021-04-21] MEDS ORDERED: FURO-144 PO (09:38)
[2021-04-21] MEDS ORDERED: QUET200T PO (09:38)
[2021-04-21] MEDS ORDERED: HYDR100T27 PO (09:38)
[2021-04-21] MEDS ORDERED: DOXA8TAB79 PO (09:38)
[2021-04-21] MEDS ORDERED: ASPI-1420 PO (09:38)
[2021-04-21] MEDS ORDERED: CARV25TA2 PO (09:38)
[2021-04-21] MEDS ORDERED: CALC667C6 PO (09:38)
--- NOTE | 2021-04-21 09:45 | NUR ---
MOVE SHEET SUBMITTED
--- NOTE | 2021-04-21 10:03 | NUR ---
MIDLINE NURSE AT BEDSIDE
--- NOTE | 2021-04-21 10:53 | NUR ---
MIDLINE SALBADOR G 18
[2021-04-21] MEDS ORDERED: HYDROMORPHONE 1 MG/1 ML DISP.SYRIN ONE (11:50)
[2021-04-21] MEDS ORDERED: HYDROMORPHONE 1 MG/1 ML DISP.SYRIN IV ONE (12:00)
[2021-04-21 12:24] LABS: CALCIUM, SERUM 7.7 mg/dL (8.5-10.1); CARBON DIOXIDE 19 mmol/L (21-32); CHLORIDE 102 mmol/L (98-107); GLUCOSE 97 mg/dL (74-106); SODIUM SERUM 140 mmol/L (136-145)
[2021-04-21 12:29] LABS: CREATININE 12.6 mg/dL (0.6-1.3); POTASSIUM 6.3 mmol/L (3.5-5.1); UREA NITROGEN, BLOOD 96 mg/dL (7-18)
[2021-04-21] MEDS ORDERED: SODIUM POLYSTYRENE SULFONATE 15 G/60 ML BOTTLE PO ONE (12:30)
[2021-04-21] MEDS ORDERED: INSULIN REGULAR, HUMAN 100 UNIT/ML 10 ML VIAL IV ONE (12:30)
[2021-04-21] MEDS ORDERED: DEXTROSE 50%-WATER 50 ML DISP.SYRIN IV ONE (12:30)
[2021-04-21] MEDS ORDERED: SODIUM BICARBONATE SYR 50 MEQ/50 ML DISP.SYRIN IV ONE (12:30)
[2021-04-21] MEDS ORDERED: SODIUM POLYSTYRENE SULFONATE 15 G/60 ML BOTTLE ONE (12:47)
[2021-04-21] MEDS ORDERED: SODIUM BICARBONATE SYR 50 MEQ/50 ML DISP.SYRIN ONE (12:47)
[2021-04-21] MEDS ORDERED: DEXTROSE 50%-WATER 50 ML DISP.SYRIN ONE (12:47)
[2021-04-21] MEDS ORDERED: INSULIN REGULAR, HUMAN 100 UNIT/ML 10 ML VIAL ONE (12:47)
[2021-04-21 13:00] LABS: BASOPHILS % (AUTO) 0.7 % (0.0-2.0); EOSINOPHILS % (AUTO) 8.9 % (0.0-6.0); HEMATOCRIT 26 % (33-45); HEMOGLOBIN 8.6 g/dL (11.5-14.8); LYMPHOCYTES # (AUTO) 0.5 K/uL (0.8-4.8); LYMPHOCYTES % (AUTO) 8.9 % (20.0-44.0); MEAN CORPUSCULAR HGB CONC 33 g/dl (31.0-36.0); MEAN CORPUSCULAR VOLUME 99 fL (82-100); MONOCYTES # (AUTO) 0.6 K/uL (0.1-1.30); MONOCYTES % (AUTO) 10.1 % (2.0-12.0); NEUTROPHILS # (AUTO) 3.9 K/uL (1.8-8.9); NEUTROPHILS % (AUTO) 71.4 % (43.0-81.0); PLATELET COUNT (AUTO) 193 K/uL (150-450); RED BLOOD CELL COUNT(AUTO) 2.64 MIL/uL (4.0-5.2); WHITE BLOOD COUNT (AUTO) 5.5 K/uL (4.3-11.0)
[2021-04-21 13:02] LABS: D-DIMER 3.62 mg/L(FEU (0.17-0.50)
--- NOTE | 2021-04-21 13:27 | NUR ---
GOT BED 315-1
--- NOTE | 2021-04-21 13:49 | NUR ---
BS RECHECK 80; SEAN MENDOZA AWARE.
--- NOTE | 2021-04-21 13:56 | NUR ---
REPORT GIVEN TO NURSE ALI
[2021-04-21] MEDS ORDERED: ONDANSETRON HCL/PF 4 MG/2 ML VIAL IVP PRN (14:00)
[2021-04-21] MEDS ORDERED: MAGNESIUM HYDROXIDE 30 ML UDC PO PRN (14:00)
[2021-04-21] MEDS ORDERED: Z GUARD REMEDY 2 OZ OINT TP PRN (14:00)
[2021-04-21] MEDS ORDERED: MAG HYDROX/AL HYDROX/SIMETH 30 ML UDC PO PRN (14:00)
[2021-04-21] MEDS ORDERED: ACETAMINOPHEN 325 MG TABLET PO PRN (14:00)
[2021-04-21] MEDS ORDERED: HYDROCODONE/APAP 5/325MG TABLET PO PRN (14:00)
[2021-04-21] MEDS ORDERED: hydrALAZINE HCL IV 20 MG VIAL IV PRN (14:00)
[2021-04-21] MEDS ORDERED: ALBUTEROL SULFATE INH 18 GM HFA.AER.AD IH PRN (14:00)
[2021-04-21] MEDS ORDERED: ALBUTEROL FS 2.5 MG/0.5 ML VIAL.NEB NEB PRN (14:00)
--- NOTE | 2021-04-21 14:14 | NUR ---
PT STABLE AND TRANSFERRED TO [facility] VIA ACLS PROTOCOL. ALL BELONGINGS WITH PT. RN AND HORSE AND WAGON DRIVER AT PT'S BEDSIDE. VSS
--- NOTE | 2021-04-21 14:30 | NUR ---
CRM MARKETING MANAGER NOTE RECEIVED PATIENT VIA GURNEY, PATIENT AMBULATED TO BED. PATIENT A/O X4. PATIENT IS BREATHING EVENLY, WITH LABORED BREATHS ON ROOM AIR. VITALS HR 140, BP 166/104, RR 18, TEMP 97.7. WILL GIVE PRN BLOOD PRESSURE MEDICATION. PATIENT HAS SOME DISCOMFORT IN THE LEFT UPPER QUADRANT, PAIN MEDICATION WAS GIVEN IN ER. PATIENT WAS PLACED ON TELE MONITOR SHOWING [place]. PATIENT HAS IV ACCESS TO SALBADOR MIDLINE # 18 PATENT AND INTACT, LAV SHUNT NOTED. PATIENTS ABDOMEN SOFT WITH SOME TENDERNESS IN THE LEFT UPPER QUADRANT MD AWARE. PATIENT NOTED WITH R CHEEK BUG BITE, PHOTO TAKEN AND PLACED IN CHART PATIENT WAS ORIENTED TO THE ROOM AND HOW TO USE THE CALL LIGHT. ALL BELONGINGS ACCOUNTED FOR. SAFETY MEASURES IN PLACE, BED LOW LOCKED AND CALL LIGHT WITHIN REACH. WILL CONTINUE TO MONITOR
[2021-04-21] MEDS: FUROSEMIDE 40 MG/4 ML VIAL IV SCH ×2 (14:40→21:40)
[2021-04-21] MEDS: HYDROMORPHONE INJ 2 MG/ML DISP.SYRIN IV PRN ×2 (16:20→16:21)
[2021-04-21] MEDS ORDERED: TOPIRAMATE 100 MG TABLET PO SCH (17:00)
[2021-04-21] MEDS: APIXABAN 2.5 MG TABLET PO SCH (17:04)
[2021-04-21] MEDS: CALCIUM ACETATE 667 MG CAP/TAB PO SCH (17:05)
[2021-04-21] MEDS: QUETIAPINE FUMARATE 100 MG TABLET PO SCH (17:05)
[2021-04-21] MEDS: hydrALAZINE HCL 50 MG TABLET PO SCH (17:05)
[2021-04-21] MEDS: SEVELAMER CARBONATE 800 MG TABLET PO SCH (17:05)
[2021-04-21] MEDS: TOPIRAMATE 25 MG TABLET PO SCH (17:21)
--- NOTE | 2021-04-21 18:27 | NUR ---
RN NOTE PATIENT NOTED WITH TACHYCARDIA, PATIENT ON DIALYSIS, LAND LEVELER AWARE, OKAY TO CONTINUE DIALYSIS TREATMENT NO CHANGES AT THIS TIME.
--- NOTE | 2021-04-21 18:30 | NUR ---
NUCLEAR TEST TECHNICIAN CLOSING NOTE PATIENT IN BED. PATIENT A/O X4. PATIENT IS BREATHING EVENLY AND NONLABORED ON ROOM AIR. PATIENT HAS SOME DISCOMFORT IN THE LEFT UPPER QUADRANT, PAIN MEDICATION WAS GIVEN ORDERED. PATIENT WAS PLACED ON TELE MONITOR SHOWING [place]. PATIENT HAS IV ACCESS TO SALBADOR MIDLINE # 18 PATENT AND INTACT, LAV SHUNT NOTED. PATIENTS IS CURRENTLY HAVING HD. ALL MEDICATIONS GIVEN ORDERED. SAFETY MEASURES IN PLACE, BED LOW LOCKED AND CALL LIGHT WITHIN REACH. WILL ENDORSE TO ONCOMING SHIFT
--- NOTE | 2021-04-21 19:00 | NUR ---
MS RN OPENING NOTE RECEIVED PT IN BED, RESTING. A/O X4. PT IS ON ROOM AIR, NO SOB OR RESPIRATORY DISTRESS NOTED, NO C/O PAIN AT THIS TIME. RESPIRATIONS EVEN AND UNLABORED. IV ACCESS NOTED IN RIGHT UPPER ARM MIDLINE G #18, LAV SHUNT NOTED. INTACT, PATENT AND FLUSHING WELL, FALL AND SAFETY MEASURES IN PLACE AND MAINTAINED AT ALL TIMES. BED ALARM, BED IN LOW AND LOCKED POSITION, HOB ELEVATED TO SEMI FOWLERS POSITION, CALL LIGHT AND TABLE WITHIN REACH. SIDE RAILS UP X2.RECEIVING DIALYSIS AT THE MOMENT. PT ON TELE MONITOR SHOWING SINU WITH AV BLOCK. WILL CONTINUE WITH PLAN OF CARE.
[2021-04-21 20:00] VITALS: BP 141/93
[2021-04-21] MEDS: CARVEDILOL 12.5 MG TABLET PO SCH (21:40)
[2021-04-22] VITALS: BP 145/97
[2021-04-22 04:00] VITALS: BP 160/130
[2021-04-22] MEDS: HYDROMORPHONE INJ 2 MG/ML DISP.SYRIN IV PRN ×4 (04:26→23:33)
--- NOTE | 2021-04-22 04:26 | NUR ---
PT C/O 8/10 ACHING PAIN. PER PT REQUEST DILAUDID 1MG(0.5ML) IV Q4HR PRN ADMINISTERED AT THIS TIME PER ORDER. WILL CONTINUE TO MONITOR
--- NOTE | 2021-04-22 06:30 | NUR ---
MS RN CLOSING NOTE PT SLEEPING AT THE MOMENT BUT EASILY AROUSED. . PT REMAINED STABLE THROUGHOUT SHIFT. WILL ENDORSE TO ONCOMING NURSE FOR FRANSICO.
[2021-04-22 07:45] LABS: BASOPHILS # (AUTO) 0.1 K/uL (0.0-0.2); BASOPHILS % (AUTO) 1.1 % (0.0-2.0); EOSINOPHILS % (AUTO) 6.3 % (0.0-6.0); HEMATOCRIT 25 % (33-45); HEMOGLOBIN 8.3 g/dL (11.5-14.8); LYMPHOCYTES # (AUTO) 0.5 K/uL (0.8-4.8); LYMPHOCYTES % (AUTO) 10.3 % (20.0-44.0); MEAN CORPUSCULAR HGB CONC 33 g/dl (31.0-36.0); MEAN CORPUSCULAR VOLUME 98 fL (82-100); MONOCYTES # (AUTO) 0.5 K/uL (0.1-1.30); MONOCYTES % (AUTO) 11.2 % (2.0-12.0); NEUTROPHILS # (AUTO) 3.4 K/uL (1.8-8.9); NEUTROPHILS % (AUTO) 71.1 % (43.0-81.0); PLATELET COUNT (AUTO) 207 K/uL (150-450); RED BLOOD CELL COUNT(AUTO) 2.58 MIL/uL (4.0-5.2); WHITE BLOOD COUNT (AUTO) 4.8 K/uL (4.3-11.0)
--- NOTE | 2021-04-22 07:47 | NUR ---
TRUCK TRAILER MECHANIC OPENING NOTES RECEIVED PATIENT ASLEEP IN BED, AWAKE, A/O X4., PATIENT ON ROOM AIR; BREATHING IS EVEN AND UNLABORED; NO SOB NOTED. NO COMPLAINS OF PAIN. PT ON EXTERNAL CLINICAL FACULTY READING SINUS TACH. IV ACCESS SALBADOR MIDLINE PATENT AND INTACT. SAFETY PRECAUTIONS IN PLACE; BED IN LOW POSITION AND LOCKED, SIDE RAILS UP X2, CALL LIGHT WITHIN REACH. WILL CONTINUE TO MONITOR PATIENT.
[2021-04-22 07:57] LABS: MAGNESIUM 2.3 mg/dL (1.8-2.4); PHOSPHORUS 4.8 mg/dL (2.5-4.9); POTASSIUM 5.2 mmol/L (3.5-5.1)
[2021-04-22 08:12] LABS: CREATININE 10.1 mg/dL (0.6-1.3)
[2021-04-22] MEDS: SEVELAMER CARBONATE 800 MG TABLET PO SCH ×3 (08:19→17:45)
[2021-04-22] MEDS: CALCIUM ACETATE 667 MG CAP/TAB PO SCH ×3 (08:19→17:45)
[2021-04-22] MEDS: LEVOTHYROXINE SODIUM 25 MCG TABLET PO SCH (08:19)
--- NOTE | 2021-04-22 08:21 | NUR ---
WOUND CARE CONSULT: PT HAS RAISED AREA TO RT CHEEK. NO DRAINAGE NOTED AT THIS TIME. DEFER TO PMD FOR CHEEK LESION. WILL SEE PRN. CURRENT [place] SCORE IS 20.
[2021-04-22 08:40] VITALS: BP 153/95
[2021-04-22] MEDS: ASPIRIN EC 81 MG TABLET.DR PO SCH (09:03)
[2021-04-22] MEDS: FUROSEMIDE 40 MG/4 ML VIAL IV SCH ×2 (09:04→20:37)
[2021-04-22] MEDS: DOXAZOSIN MESYLATE (4 MG) 4 MG TABLET PO SCH (09:04)
[2021-04-22] MEDS: CARVEDILOL 12.5 MG TABLET PO SCH ×2 (09:04→20:38)
[2021-04-22] MEDS: TOPIRAMATE 25 MG TABLET PO SCH ×2 (09:04→16:40)
[2021-04-22] MEDS: MONTELUKAST SODIUM (10MG) 10 MG TABLET PO SCH (09:05)
[2021-04-22] MEDS: hydrALAZINE HCL 50 MG TABLET PO SCH ×2 (09:05→16:39)
[2021-04-22] MEDS: QUETIAPINE FUMARATE 100 MG TABLET PO SCH ×2 (09:05→16:39)
[2021-04-22] MEDS: NIFEdipine XL (30MG) 30 MG TAB PO SCH (09:05)
[2021-04-22] MEDS: APIXABAN 2.5 MG TABLET PO SCH ×2 (09:06→16:40)
[2021-04-22 12:00] VITALS: BP 118/84
--- NOTE | 2021-04-22 13:01 | NUR ---
SOLO TRUCK DRIVER NOTES PT REFUSED TO REPLACE CARDIAC TELE MONITOR LEAD. MD AND CHARGE NURSE MADE AWARE.
[2021-04-22 16:01] VITALS: BP 134/82
--- NOTE | 2021-04-22 18:52 | NUR ---
MS RN OPENING NOTES PATIENT IS ASLEEP IN BED, EASY TO AROUSE; ON ROOM AIR, TOLERATING WELL; BREATHING IS EVEN AND UNLABORED; NO SOB NOTED. NO COMPLAINS OF PAIN. IV ACCESS SALBADOR MIDLINE PATENT AND INTACT. SAFETY PRECAUTIONS MAINTAINED WITH BED IN LOW POSITION AND LOCKED, SIDE RAILS UP X2, CALL LIGHT WITHIN REACH. WILL ENDORSE CONTINUITY OF CARE TO ONCOMING SHIFT. Addendum: 04/22/21 at 1855 by MICHAEL LEWIS RN ERROR
--- NOTE | 2021-04-22 18:55 | NUR ---
MS RN CLOSING NOTES PATIENT IS ASLEEP IN BED, EASY TO AROUSE; ON ROOM AIR, TOLERATING WELL; BREATHING IS EVEN AND UNLABORED; NO SOB NOTED. NO COMPLAINS OF PAIN. IV ACCESS SALBADOR MIDLINE PATENT AND INTACT. SAFETY PRECAUTIONS MAINTAINED WITH BED IN LOW POSITION AND LOCKED, SIDE RAILS UP X2, CALL LIGHT WITHIN REACH. WILL ENDORSE CONTINUITY OF CARE TO ONCOMING SHIFT.
[2021-04-22 20:00] VITALS: BP 122/57
--- NOTE | 2021-04-22 20:00 | NUR ---
Patient is awake, A&Ox3. Denies chest pain currently. States she is okay but hungry because she did not eat dinner but was able to finish dinner that was left at bedside. No respiratory distress seen, pt. denies SOB at rest. Will continue to monitor.
--- NOTE | 2021-04-22 21:50 | NUR ---
per MD followup CXR will be in am 04/23 and HD will be followed up tomorrow with Dr. Allison.
[2021-04-22] MEDS ORDERED: EPOETIN ALFA (4000 UNIT) 4,000 UNIT/ML VIAL IV SCH (23:00)
[2021-04-23] MEDS: HYDROMORPHONE INJ 2 MG/ML DISP.SYRIN IV PRN ×5 (04:40→22:57)
--- NOTE | 2021-04-23 05:43 | NUR ---
Patient states she was able to urinate but moved hat in the the toilet so that it did not collect urine despite being educated to use the hat as a urine specimen is needed. Patient re-educated.
--- NOTE | 2021-04-23 06:51 | NUR ---
Patient requested benadryl 50mg IV prior to dialysis for itching. Paged extrusion operator . stated no that she has never needed it and cannot have it at this time d/t past history.
--- NOTE | 2021-04-23 06:55 | NUR ---
Patient is A&Ox4, no signs of distress. Denies any needs at this time. Patient notified of dialysis scheduled for this morning. Up and ready with fresh gown. 2 times during night pt. c/o chest and abdominal pressure relieved by PRN dilaudid. No episodes of SOB. VSS.
--- NOTE | 2021-04-23 07:10 | NUR ---
urine collected for test. put in biohazard fridge.
[2021-04-23 07:23] LABS: BASOPHILS % (AUTO) 0.9 % (0.0-2.0); EOSINOPHILS % (AUTO) 10.5 % (0.0-6.0); HEMATOCRIT 23 % (33-45); HEMOGLOBIN 7.6 g/dL (11.5-14.8); LYMPHOCYTES # (AUTO) 0.4 K/uL (0.8-4.8); MEAN CORPUSCULAR HGB CONC 33 g/dl (31.0-36.0); MEAN CORPUSCULAR VOLUME 99 fL (82-100); MONOCYTES # (AUTO) 0.4 K/uL (0.1-1.30); MONOCYTES % (AUTO) 13.1 % (2.0-12.0); NEUTROPHILS % (AUTO) 62.5 % (43.0-81.0); PLATELET COUNT (AUTO) 164 K/uL (150-450); RED BLOOD CELL COUNT(AUTO) 2.31 MIL/uL (4.0-5.2); WHITE BLOOD COUNT (AUTO) 3.2 K/uL (4.3-11.0)
--- NOTE | 2021-04-23 07:30 | NUR ---
RN OPENING NOTE RECEIVED PATIENT IN BED. A/O X3. ON ROOM AIR, NO SOB NOTED. IN NO APPARENT DISTRESS. IV ACCESS ON SALBADOR MIDLINE #18 G, INTACT AND PATENT. KATERIN AV FISTULA C/D/I. SAFETY MEASURES MAINTAINED. BED IN LOWEST POSITION, BRAKES LOCKED. SIDE RAILS UP X 2. CALL LIGHT WITHIN REACH. WILL CONTINUE PLAN OF CARE.
--- NOTE | 2021-04-23 07:42 | NUR ---
Clarified frequency of epogen 4,[address] Allison. To be given with every dialysis that will be ordered while in the hospital.
[2021-04-23 07:54] LABS: POTASSIUM 5.4 mmol/L (3.5-5.1)
[2021-04-23 08:00] VITALS: BP 147/96
[2021-04-23] MEDS: SEVELAMER CARBONATE 800 MG TABLET PO SCH ×3 (08:41→17:16)
[2021-04-23] MEDS: FUROSEMIDE 40 MG/4 ML VIAL IV SCH ×2 (08:41→20:39)
[2021-04-23] MEDS: QUETIAPINE FUMARATE 100 MG TABLET PO SCH ×2 (08:41→17:15)
[2021-04-23] MEDS: LEVOTHYROXINE SODIUM 25 MCG TABLET PO SCH (08:42)
[2021-04-23] MEDS: DOXAZOSIN MESYLATE (4 MG) 4 MG TABLET PO SCH (08:42)
[2021-04-23] MEDS: ASPIRIN EC 81 MG TABLET.DR PO SCH (08:42)
[2021-04-23] MEDS: TOPIRAMATE 25 MG TABLET PO SCH ×2 (08:42→17:15)
[2021-04-23] MEDS: MONTELUKAST SODIUM (10MG) 10 MG TABLET PO SCH (08:42)
[2021-04-23] MEDS: hydrALAZINE HCL 50 MG TABLET PO SCH ×2 (08:43→17:16)
[2021-04-23] MEDS: CARVEDILOL 12.5 MG TABLET PO SCH ×2 (08:43→20:39)
[2021-04-23] MEDS: CALCIUM ACETATE 667 MG CAP/TAB PO SCH ×3 (08:44→17:16)
[2021-04-23] MEDS: NIFEdipine XL (30MG) 30 MG TAB PO SCH (08:44)
[2021-04-23] MEDS: APIXABAN 2.5 MG TABLET PO SCH ×2 (08:45→17:26)
[2021-04-23 16:00] VITALS: BP 116/75
--- NOTE | 2021-04-23 18:11 | NUR ---
RN CLOSING NOTE PATIENT RESTING IN BED. A/O X3. ON ROOM AIR, NO SOB NOTED. IN NO APPARENT DISTRESS. IV ACCESS ON SALBADOR MIDLINE #18 G, INTACT AND PATENT. KATERIN AV FISTULA C/D/I. S/P HEMODIALYSIS 3L OUTPUT. DUE MEDS GIVEN ORDERED. ALL NEEDS HAVE BEEN MET AND ATTENDED. SAFETY MEASURES MAINTAINED. BED IN LOWEST POSITION, BRAKES LOCKED. SIDE RAILS UP X 2. KEPT CALL LIGHT WITHIN REACH. WILL ENDORSE CONTINUITY OF CARE TO ONCOMING SHIFT.
[2021-04-23] MEDS: EPOETIN ALFA-EPBX 4,000 UNIT/ML VIAL IV PRN (18:47)
[2021-04-23 20:00] VITALS: BP 131/77
--- NOTE | 2021-04-23 20:01 | NUR ---
Patient is awake A&Ox4. States chest pain has been managed well and is tolerable at this time. Resting in bed, no signs of distress. However, was irritable with PROCEDURES ANALYST when trying to take vitals, not wanting to cooperative but giving no reason. able to convince pt to have vitals taken.
[2021-04-24] MEDS: HYDROMORPHONE INJ 2 MG/ML DISP.SYRIN IV PRN ×4 (02:58→16:29)
--- NOTE | 2021-04-24 06:16 | NUR ---
Patient awake most of night feeling some anxiety but relieved with coping mechanisms. Patient requested 1L O2 during anxiety as it calmed her O2 sats above 95% on RA, O2 removed. PRN dilaudid administered 2 times during the night for chest and arm pain -relief felt. Bruit and thrill + to L arm AVF, SALBADOR midline patent and flushed. Currently awake in bed watching TV. Denies any needs at this time.
[2021-04-24] MEDS: LEVOTHYROXINE SODIUM 25 MCG TABLET PO SCH (06:57)
--- NOTE | 2021-04-24 07:33 | NUR ---
RN OPENING NOTE RECEIVED PATIENT IN BED. A/O X3. ON ROOM AIR, NO SOB NOTED. IN NO APPARENT DISTRESS. IV ACCESS ON SALBADOR MIDLINE #18 G, INTACT AND PATENT. DENIES ANY PAIN OR DISCOMFORT AT THIS TIME. KATERIN AV FISTULA C/D/I. ABLE TO MAKE NEEDS KNOWN. SAFETY MEASURES MAINTAINED. BED IN LOWEST POSITION, BRAKES LOCKED. SIDE RAILS UP X 2. CALL LIGHT WITHIN REACH. WILL CONTINUE PLAN OF CARE.
[2021-04-24 08:00] VITALS: BP 154/94
[2021-04-24] MEDS: ASPIRIN EC 81 MG TABLET.DR PO SCH (08:22)
[2021-04-24] MEDS: SEVELAMER CARBONATE 800 MG TABLET PO SCH ×3 (08:22→17:04)
[2021-04-24] MEDS: CALCIUM ACETATE 667 MG CAP/TAB PO SCH ×3 (08:22→17:03)
[2021-04-24] MEDS: FUROSEMIDE 40 MG/4 ML VIAL IV SCH ×2 (08:23→20:35)
[2021-04-24] MEDS: TOPIRAMATE 25 MG TABLET PO SCH ×2 (08:23→16:11)
[2021-04-24] MEDS: MONTELUKAST SODIUM (10MG) 10 MG TABLET PO SCH (08:23)
[2021-04-24] MEDS: QUETIAPINE FUMARATE 100 MG TABLET PO SCH ×2 (08:23→16:11)
[2021-04-24] MEDS: APIXABAN 2.5 MG TABLET PO SCH ×2 (08:25→16:13)
[2021-04-24] MEDS: NIFEdipine XL (30MG) 30 MG TAB PO SCH (08:45)
[2021-04-24] MEDS: CARVEDILOL 12.5 MG TABLET PO SCH ×2 (08:45→20:35)
[2021-04-24] MEDS: DOXAZOSIN MESYLATE (4 MG) 4 MG TABLET PO SCH (08:45)
[2021-04-24] MEDS: hydrALAZINE HCL 50 MG TABLET PO SCH ×2 (08:46→16:13)
[2021-04-24 16:00] VITALS: BP 125/68
--- NOTE | 2021-04-24 16:13 | NUR ---
RN NOTE Held Eliquis due to nose bleed.
--- NOTE | 2021-04-24 18:04 | NUR ---
RN OPENING NOTE PATIENT RESTING IN BED. A/O X3. ON ROOM AIR, NO SOB NOTED. IN NO APPARENT DISTRESS. IV ACCESS ON SALBADOR MIDLINE #18 G, INTACT AND PATENT. KATERIN AV FISTULA C/D/I. DUE MEDS GIVEN ORDERED. ALL NEEDS HAVE BEEN MET AND ATTENDED. SAFETY MEASURES MAINTAINED. BED IN LOWEST POSITION, BRAKES LOCKED. SIDE RAILS UP X 2. KEPT CALL LIGHT WITHIN REACH. WILL ENDORSE CONTINUITY OF CARE TO ONCOMING SHIFT. Addendum: 04/24/21 at 1805 by CATHY ROCK RN CORRECTION: RN CLOSING NOTE
--- NOTE | 2021-04-24 18:43 | NUR ---
Dialysis Notes RN Pt HD treatment rescheduled for tomorrow per Dr Allison.
[2021-04-24 20:00] VITALS: BP 115/76
--- NOTE | 2021-04-24 20:10 | NUR ---
Called [facility] to confirm HD tonight. Per replenishment merchandising associate the nurse would call the hospital back.
--- NOTE | 2021-04-24 20:37 | NUR ---
Per dialysis nurse Dr. Allison rescheduled HD for tomorrow 04/25.
[2021-04-25] MEDS: HYDROMORPHONE INJ 2 MG/ML DISP.SYRIN IV PRN ×4 (01:01→15:15)
--- NOTE | 2021-04-25 07:37 | NUR ---
Patient A&Ox4. Stable overnight, denies SOB. C/o chest pain x2 relieved by PRN dilaudid. No other issues.
[2021-04-25] MEDS: DOXAZOSIN MESYLATE (4 MG) 4 MG TABLET PO SCH (09:00)
[2021-04-25] MEDS: NIFEdipine XL (30MG) 30 MG TAB PO SCH ×2 (09:00→09:12)
[2021-04-25] MEDS: CARVEDILOL 12.5 MG TABLET PO SCH ×2 (09:00→09:10)
[2021-04-25] MEDS: hydrALAZINE HCL 50 MG TABLET PO SCH ×3 (09:00→17:06)
[2021-04-25] MEDS: SEVELAMER CARBONATE 800 MG TABLET PO SCH ×3 (09:10→17:06)
[2021-04-25] MEDS: CALCIUM ACETATE 667 MG CAP/TAB PO SCH ×3 (09:10→17:06)
[2021-04-25] MEDS: QUETIAPINE FUMARATE 100 MG TABLET PO SCH ×2 (09:10→17:05)
[2021-04-25] MEDS: ASPIRIN EC 81 MG TABLET.DR PO SCH (09:11)
[2021-04-25] MEDS: MONTELUKAST SODIUM (10MG) 10 MG TABLET PO SCH (09:11)
[2021-04-25] MEDS: TOPIRAMATE 25 MG TABLET PO SCH ×2 (09:11→17:06)
[2021-04-25] MEDS: LEVOTHYROXINE SODIUM 25 MCG TABLET PO SCH (09:12)
[2021-04-25] MEDS: FUROSEMIDE 40 MG/4 ML VIAL IV SCH (09:13)
[2021-04-25] MEDS: APIXABAN 2.5 MG TABLET PO SCH (09:14)
--- NOTE | 2021-04-25 09:20 | NUR ---
MS/RN NOTES- REFUSED MEDS PATIENT REFUSED ALL MORNING BLOOD PRESSURE MEDICATIONS DUE TO PATIENT CURRENTLY HAVING HEMODIALYSIS RIGHT NOW. WILL MONITOR.
--- NOTE | 2021-04-25 15:00 | NUR ---
MS/RN NOTES STOPPED HEPARIN DRIP PER MD ORDER DUE TO A PROCEDURE. Addendum: 04/25/21 at 1528 by ALEJANDRO ANNA RN WRONG PATIENT
[2021-04-25] MEDS: EPOETIN ALFA-EPBX 4,000 UNIT/ML VIAL IV PRN (17:05)
[2021-04-25 17:06] VITALS: BP 140/70
== END 2021-04-25 17:57 | disposition home or self-care (01) | DRG 194 ==
LOC: ER 07:33 → TELE 13:37 → MED 04-22 17:55
PROVIDERS: ADMIT Internal Medicine; ATTEND Internal Medicine
PROC: 05H533Z Insertion of Infusion Device into Right Subclavian Vein, Percutaneous Approach (ICD-10-PCS; principal; 2021-04-21)
PROC: B546ZZA Ultrasonography of Right Subclavian Vein, Guidance (ICD-10-PCS; 2021-04-21)
PROC: 5A1D70Z Performance of Urinary Filtration, Intermittent, Less than 6 Hours Per Day (ICD-10-PCS; 2021-04-21)
DX: I13.2 Hypertensive heart and chronic kidney disease with heart failure and with stage 5 chronic kidney disease, or end stage renal disease (principal); N18.6 End stage renal disease; Z79.01 Long term (current) use of anticoagulants; F25.9 Schizoaffective disorder, unspecified; E83.9 Disorder of mineral metabolism, unspecified; D63.1 Anemia in chronic kidney disease; Z99.2 Dependence on renal dialysis; J98.11 Atelectasis; I50.23 Acute on chronic systolic (congestive) heart failure; Z86.73 Personal history of transient ischemic attack (TIA), and cerebral infarction without residual deficits; I16.1 Hypertensive emergency; E03.9 Hypothyroidism, unspecified; E87.5 Hyperkalemia; Z86.711 Personal history of pulmonary embolism; Z86.718 Personal history of other venous thrombosis and embolism; J45.909 Unspecified asthma, uncomplicated; I48.91 Unspecified atrial fibrillation; Z20.822 Contact with and (suspected) exposure to COVID-19
CPT/HCPCS: 36410; 36415; 71045-TC; 74018; 80048-TC; 82962-TC; 83735-TC; 83880; 84100-TC; 84484-TC; 84703-TC; 85025-TC; 85378-TC; 85730-TC; 87081-TC; 90935-TC; 93307-TC; C9803; G0378; J0360; J0885; J1170; J1815; J1940; J2270; J2405; J3490; J7030

== ENCOUNTER 2021-04-27 17:12 | Inpatient (IN) | payer MEDICAID ==
[2021-04-27] VITALS: BP 126/70
[~2021-04-27] VITALS: Ht 165.1 cm; Wt 93.0 kg
[~2021-04-27 17:12] MED LIST changes: +APIX2.5T PO; -APIX5TAB PO; -BISA5TAB10 PO; -CALC0.253 PO; +CALC667C6 PO; -CARV25TA PO; +CARV25TA2 PO; -CLON0.1T PO; +DOXA8TAB79 PO; -ESCI10TA PO; -FOLI0.4T6 PO; +FURO-144 PO; -HYDR-4076 PO; +HYDR100T27 PO; -ISOS20TA8 PO; -LIDO30AD10 TP; -METO-295 PO; +MONT10TA22 PO; +NIFE30TA91 PO; -NIFE90TA61 PO; -PANT40TA2 PO; -POLY17PO4 PO; +QUET200T PO
[2021-04-27] MEDS ORDERED: ONDANSETRON HCL/PF - ER 4 MG/2 ML VIAL IV ONE ×2 (18:00→19:00)
[2021-04-27] MEDS ORDERED: MORPHINE SULFATE INJ 2 MG/ML DISP.SYRIN IV ONE (18:00)
[2021-04-27 18:14] LABS: BASOPHILS # (AUTO) 0.2 K/uL (0.0-0.2); BASOPHILS % (AUTO) 4.1 % (0.0-2.0); EOSINOPHILS % (AUTO) 6.2 % (0.0-6.0); HEMATOCRIT 24 % (33-45); HEMOGLOBIN 7.7 g/dL (11.5-14.8); LYMPHOCYTES # (AUTO) 0.3 K/uL (0.8-4.8); LYMPHOCYTES % (AUTO) 7.8 % (20.0-44.0); MEAN CORPUSCULAR HGB CONC 32 g/dl (31.0-36.0); MEAN CORPUSCULAR VOLUME 101 fL (82-100); MONOCYTES # (AUTO) 0.3 K/uL (0.1-1.30); MONOCYTES % (AUTO) 7.4 % (2.0-12.0); NEUTROPHILS # (AUTO) 2.9 K/uL (1.8-8.9); NEUTROPHILS % (AUTO) 74.5 % (43.0-81.0); PLATELET COUNT (AUTO) 130 K/uL (150-450); RED BLOOD CELL COUNT(AUTO) 2.35 MIL/uL (4.0-5.2); WHITE BLOOD COUNT (AUTO) 3.9 K/uL (4.3-11.0)
[2021-04-27] MEDS ORDERED: ONDANSETRON HCL/PF 4 MG/2 ML VIAL ONE ×2 (18:16→19:07)
[2021-04-27] MEDS ORDERED: MORPHINE SULFATE INJ 4 MG/ML DISP.SYRIN ONE (18:17)
[2021-04-27 18:21] LABS: CALCIUM, SERUM 8.5 mg/dL (8.5-10.1); POTASSIUM 6.1 mmol/L (3.5-5.1)
[2021-04-27 18:26] LABS: CREATININE 10.2 mg/dL (0.6-1.3)
[2021-04-27] MEDS ORDERED: DEXTROSE 50%-WATER 50 ML DISP.SYRIN IV ONE (18:30)
[2021-04-27] MEDS ORDERED: SODIUM BICARBONATE SYR 50 MEQ/50 ML DISP.SYRIN IV ONE (18:30)
[2021-04-27] MEDS ORDERED: INSULIN REGULAR, HUMAN 100 UNIT/ML 10 ML VIAL IV ONE (18:30)
[2021-04-27] MEDS ORDERED: ALBUTEROL FS 2.5 MG/3 ML VIAL.NEB NEB ONE (18:30)
[2021-04-27] MEDS ORDERED: SODIUM POLYSTYRENE SULFONATE 15 G/60 ML BOTTLE PO ONE (18:30)
[2021-04-27] MEDS ORDERED: SODIUM BICARBONATE SYR 50 MEQ/50 ML DISP.SYRIN ONE (18:39)
[2021-04-27] MEDS ORDERED: DEXTROSE 50%-WATER 50 ML DISP.SYRIN ONE (18:39)
[2021-04-27] MEDS ORDERED: SODIUM POLYSTYRENE SULFONATE 15 G/60 ML BOTTLE ONE (18:39)
[2021-04-27] MEDS ORDERED: INSULIN REGULAR, HUMAN 100 UNIT/ML 10 ML VIAL ONE (18:39)
[2021-04-27] MEDS ORDERED: HYDROMORPHONE 1 MG/1 ML DISP.SYRIN IV ONE (19:00)
[2021-04-27] MEDS ORDERED: HYDROMORPHONE 1 MG/1 ML DISP.SYRIN ONE (19:07)
[2021-04-27] MEDS ORDERED: ALBUTEROL FS 2.5 MG/3 ML VIAL.NEB ONE (19:21)
[2021-04-27] MEDS ORDERED: hydrALAZINE HCL IV 20 MG VIAL ONE ×2 (19:46→23:42)
[2021-04-27] MEDS ORDERED: hydrALAZINE HCL IV 20 MG VIAL IV ONE (20:00)
[2021-04-27] MEDS ORDERED: ONDANSETRON HCL/PF 4 MG/2 ML VIAL IVP PRN (23:00)
[2021-04-27] MEDS ORDERED: ACETAMINOPHEN 325 MG TABLET PO PRN (23:00)
[2021-04-27] MEDS ORDERED: HYDROCODONE/APAP 5/325MG TABLET PO PRN (23:00)
[2021-04-27] MEDS ORDERED: MORPHINE SULFATE INJ 2 MG/ML DISP.SYRIN IV PRN (23:00)
[2021-04-27] MEDS ORDERED: MAGNESIUM HYDROXIDE 30 ML UDC PO PRN (23:00)
[2021-04-27] MEDS ORDERED: ZOLPIDEM TARTRATE 5 MG TABLET PO PRN (23:00)
[2021-04-27] MEDS ORDERED: MAG HYDROX/AL HYDROX/SIMETH 30 ML UDC PO PRN (23:00)
[2021-04-27] MEDS ORDERED: Z GUARD REMEDY 2 OZ OINT TP PRN (23:00)
[2021-04-28] MEDS ORDERED: hydrALAZINE HCL 25 MG TABLET PO PRN (00:30)
[2021-04-28] MEDS ORDERED: hydrALAZINE HCL 25 MG TABLET ONE (00:43)
[2021-04-28] MEDS ORDERED: HYDROMORPHONE 1 MG/1 ML DISP.SYRIN ONE ×2 (00:46→08:33)
[2021-04-28] MEDS: HYDROMORPHONE 1 MG/1 ML DISP.SYRIN IM PRN ×4 (00:48→20:13)
[2021-04-28] MEDS ORDERED: MORPHINE SULFATE INJ 2 MG/ML DISP.SYRIN ONE (04:27)
[2021-04-28 06:16] LABS: BASOPHILS % (AUTO) 0.9 % (0.0-2.0); EOSINOPHILS % (AUTO) 4.8 % (0.0-6.0); HEMATOCRIT 22 % (33-45); HEMOGLOBIN 7.5 g/dL (11.5-14.8); LYMPHOCYTES # (AUTO) 0.4 K/uL (0.8-4.8); LYMPHOCYTES % (AUTO) 8.1 % (20.0-44.0); MEAN CORPUSCULAR HGB CONC 34 g/dl (31.0-36.0); MEAN CORPUSCULAR VOLUME 99 fL (82-100); MONOCYTES # (AUTO) 0.5 K/uL (0.1-1.30); MONOCYTES % (AUTO) 11.4 % (2.0-12.0); NEUTROPHILS # (AUTO) 3.4 K/uL (1.8-8.9); NEUTROPHILS % (AUTO) 74.8 % (43.0-81.0); PLATELET COUNT (AUTO) 128 K/uL (150-450); RED BLOOD CELL COUNT(AUTO) 2.27 MIL/uL (4.0-5.2); WHITE BLOOD COUNT (AUTO) 4.5 K/uL (4.3-11.0)
[2021-04-28 06:43] LABS: CALCIUM, SERUM 8.1 mg/dL (8.5-10.1); MAGNESIUM 2.1 mg/dL (1.8-2.4); PHOSPHORUS 5.9 mg/dL (2.5-4.9); POTASSIUM 5.5 mmol/L (3.5-5.1)
[2021-04-28 06:45] LABS: CREATININE 10.4 mg/dL (0.6-1.3)
[2021-04-28 09:05] VITALS: BP 158/100
[2021-04-28] MEDS: DOXAZOSIN MESYLATE (4 MG) 4 MG TABLET PO SCH (10:53)
[2021-04-28] MEDS: CARVEDILOL 12.5 MG TABLET PO SCH ×2 (10:53→20:34)
[2021-04-28] MEDS: NIFEdipine XL (30MG) 30 MG TAB PO SCH (10:54)
[2021-04-28] MEDS: hydrALAZINE HCL 50 MG TABLET PO SCH ×2 (10:57→17:41)
[2021-04-28 12:00] VITALS: BP 149/88
[2021-04-28 16:00] VITALS: BP 147/83
[2021-04-28 20:00] VITALS: BP_SYST 147; BP_SYST 152; BP_DIAS 82; BP_DIAS 89
[2021-04-29] MEDS: HYDROMORPHONE 1 MG/1 ML DISP.SYRIN IM PRN ×6 (00:24→22:12)
[2021-04-29 04:30] VITALS: BP 142/96
[2021-04-29] MEDS: PANTOPRAZOLE 40 MG TABLET.DR PO SCH (07:44)
[2021-04-29 08:00] VITALS: BP 141/91
[2021-04-29] MEDS: QUETIAPINE FUMARATE 100 MG TABLET PO SCH ×2 (08:38→18:02)
[2021-04-29] MEDS: FUROSEMIDE 40 MG TABLET PO SCH ×2 (08:39→17:47)
[2021-04-29] MEDS: NIFEdipine XL (30MG) 30 MG TAB PO SCH (08:39)
[2021-04-29] MEDS: DOXAZOSIN MESYLATE (4 MG) 4 MG TABLET PO SCH (08:39)
[2021-04-29] MEDS: hydrALAZINE HCL 50 MG TABLET PO SCH ×2 (08:40→18:02)
[2021-04-29] MEDS: CARVEDILOL 12.5 MG TABLET PO SCH ×2 (08:40→21:22)
[2021-04-29] MEDS ORDERED: ALBUTEROL FS 2.5 MG/3 ML VIAL.NEB NEB PRN (09:00)
[2021-04-29] MEDS: TOPIRAMATE 100 MG TABLET PO SCH ×2 (10:53→17:47)
[2021-04-29] MEDS: CALCIUM ACETATE 667 MG CAP/TAB PO SCH ×2 (13:56→18:02)
[2021-04-29] MEDS: SEVELAMER CARBONATE 800 MG TABLET PO SCH ×2 (13:56→18:02)
[2021-04-29 16:12] VITALS: BP 128/72
[2021-04-29 20:00] VITALS: BP 133/80
[2021-04-29 20:46] VITALS: BP 133/80
[2021-04-29] MEDS: MONTELUKAST SODIUM (10MG) 10 MG TABLET PO SCH (21:23)
[2021-04-30] MEDS: HYDROMORPHONE 1 MG/1 ML DISP.SYRIN IM PRN (03:21)
[2021-04-30] MEDS: HYDROMORPHONE 1 MG/1 ML DISP.SYRIN IV PRN ×4 (03:28→22:15)
[2021-04-30] MEDS ORDERED: HYDROMORPHONE 1 MG/1 ML DISP.SYRIN IV PRN (03:30)
[2021-04-30 08:00] VITALS: BP 148/102
[2021-04-30] MEDS: NIFEdipine XL (30MG) 30 MG TAB PO SCH (09:00)
[2021-04-30] MEDS: LEVOTHYROXINE SODIUM 50 MCG TABLET PO SCH (09:20)
[2021-04-30] MEDS: CALCIUM ACETATE 667 MG CAP/TAB PO SCH ×3 (09:20→17:38)
[2021-04-30] MEDS: QUETIAPINE FUMARATE 100 MG TABLET PO SCH ×2 (09:20→17:38)
[2021-04-30] MEDS: TOPIRAMATE 100 MG TABLET PO SCH ×2 (09:20→17:38)
[2021-04-30] MEDS: PANTOPRAZOLE 40 MG TABLET.DR PO SCH (09:21)
[2021-04-30] MEDS: FUROSEMIDE 40 MG TABLET PO SCH ×2 (09:25→17:37)
[2021-04-30] MEDS: DOXAZOSIN MESYLATE (4 MG) 4 MG TABLET PO SCH (09:26)
[2021-04-30] MEDS: CARVEDILOL 12.5 MG TABLET PO SCH ×2 (09:27→21:10)
[2021-04-30] MEDS: SEVELAMER CARBONATE 800 MG TABLET PO SCH ×3 (09:29→17:38)
[2021-04-30] MEDS ORDERED: IOHEXOL-350 100 ML VIAL IV ONE (10:38)
[2021-04-30] MEDS ORDERED: IV NS 0.9% 250 ML IV ONE (10:38)
[2021-04-30] MEDS: hydrALAZINE HCL 50 MG TABLET PO SCH ×2 (12:30→17:37)
[2021-04-30 16:00] VITALS: BP 160/98
[2021-04-30 21:00] VITALS: BP 161/104
[2021-04-30] MEDS: MONTELUKAST SODIUM (10MG) 10 MG TABLET PO SCH (21:10)
[2021-04-30 23:10] VITALS: BP 136/83
[2021-05-01] MEDS: HYDROMORPHONE 1 MG/1 ML DISP.SYRIN IV PRN ×5 (03:01→19:54)
[2021-05-01 08:00] VITALS: BP 149/76
[2021-05-01] MEDS: LEVOTHYROXINE SODIUM 50 MCG TABLET PO SCH (08:15)
[2021-05-01] MEDS: PANTOPRAZOLE 40 MG TABLET.DR PO SCH (08:15)
[2021-05-01] MEDS: QUETIAPINE FUMARATE 100 MG TABLET PO SCH ×2 (08:21→16:58)
[2021-05-01] MEDS: TOPIRAMATE 100 MG TABLET PO SCH ×2 (08:21→16:59)
[2021-05-01] MEDS: SEVELAMER CARBONATE 800 MG TABLET PO SCH ×3 (08:21→17:01)
[2021-05-01] MEDS: CALCIUM ACETATE 667 MG CAP/TAB PO SCH ×3 (08:21→17:01)
[2021-05-01] MEDS: DOXAZOSIN MESYLATE (4 MG) 4 MG TABLET PO SCH (08:22)
[2021-05-01] MEDS: CARVEDILOL 12.5 MG TABLET PO SCH ×2 (08:22→21:20)
[2021-05-01] MEDS: FUROSEMIDE 40 MG TABLET PO SCH ×2 (08:23→16:59)
[2021-05-01] MEDS: NIFEdipine XL (30MG) 30 MG TAB PO SCH (08:24)
[2021-05-01] MEDS: hydrALAZINE HCL 50 MG TABLET PO SCH ×2 (09:00→16:58)
[2021-05-01 16:00] VITALS: BP 134/79
[2021-05-01 20:00] VITALS: BP 149/95
[2021-05-01] MEDS: MONTELUKAST SODIUM (10MG) 10 MG TABLET PO SCH (21:20)
[2021-05-01] MEDS: LORAZEPAM INJ 2 MG/ML VIAL IV PRN (22:48)
[2021-05-01 23:52] LABS: BASOPHILS % (AUTO) 0.7 % (0.0-2.0); EOSINOPHILS % (AUTO) 6.6 % (0.0-6.0); HEMATOCRIT 21 % (33-45); HEMOGLOBIN 7.1 g/dL (11.5-14.8); LYMPHOCYTES # (AUTO) 0.3 K/uL (0.8-4.8); LYMPHOCYTES % (AUTO) 8.6 % (20.0-44.0); MEAN CORPUSCULAR HGB CONC 34 g/dl (31.0-36.0); MEAN CORPUSCULAR VOLUME 99 fL (82-100); MONOCYTES # (AUTO) 0.5 K/uL (0.1-1.30); MONOCYTES % (AUTO) 14.6 % (2.0-12.0); NEUTROPHILS # (AUTO) 2.3 K/uL (1.8-8.9); NEUTROPHILS % (AUTO) 69.5 % (43.0-81.0); WHITE BLOOD COUNT (AUTO) 3.3 K/uL (4.3-11.0)
[2021-05-02 00:27] LABS: ALBUMIN 3.8 g/dL (3.4-5.0); BILIRUBIN,TOTAL 0.4 mg/dL (0.2-1.0); CALCIUM, SERUM 7.8 mg/dL (8.5-10.1); MAGNESIUM 2.1 mg/dL (1.8-2.4); PHOSPHORUS 6.3 mg/dL (2.5-4.9); TOTAL PROTEIN, SERUM 7.8 g/dL (6.4-8.2)
[2021-05-02 05:26] LABS: EOSINOPHILS % (MANUAL) 8 % (0-4); LYMPHOCYTES % (MANUAL) 8 % (16-48); MONOCYTES % (MANUAL) 15 % (0-11.0); NEUTROPHILS % (MANUAL) 69 (42-76)
[2021-05-02 05:56] LABS: PLATELET COUNT (AUTO) 89 K/uL (150-450)
[2021-05-02 08:00] VITALS: BP 163/96
[2021-05-02] MEDS: TOPIRAMATE 100 MG TABLET PO SCH ×2 (08:28→18:22)
[2021-05-02] MEDS: QUETIAPINE FUMARATE 100 MG TABLET PO SCH ×2 (08:28→18:22)
[2021-05-02] MEDS: FUROSEMIDE 40 MG TABLET PO SCH ×2 (08:28→18:22)
[2021-05-02] MEDS: SEVELAMER CARBONATE 800 MG TABLET PO SCH ×3 (08:29→18:22)
[2021-05-02] MEDS: hydrALAZINE HCL 50 MG TABLET PO SCH ×2 (08:29→18:22)
[2021-05-02] MEDS: DOXAZOSIN MESYLATE (4 MG) 4 MG TABLET PO SCH (08:30)
[2021-05-02] MEDS: NIFEdipine XL (30MG) 30 MG TAB PO SCH (08:30)
[2021-05-02] MEDS: LEVOTHYROXINE SODIUM 50 MCG TABLET PO SCH (08:31)
[2021-05-02] MEDS: CARVEDILOL 12.5 MG TABLET PO SCH ×2 (08:31→20:51)
[2021-05-02] MEDS: CALCIUM ACETATE 667 MG CAP/TAB PO SCH ×3 (08:32→18:22)
[2021-05-02] MEDS: PANTOPRAZOLE 40 MG TABLET.DR PO SCH (08:32)
[2021-05-02] MEDS: HYDROMORPHONE 1 MG/1 ML DISP.SYRIN IV PRN ×3 (08:35→23:33)
[2021-05-02 12:59] LABS: CALCIUM, SERUM 7.7 mg/dL (8.5-10.1); MAGNESIUM 2.1 mg/dL (1.8-2.4); PHOSPHORUS 6.5 mg/dL (2.5-4.9)
[2021-05-02 13:42] LABS: CREATININE 11.8 mg/dL (0.6-1.3); POTASSIUM 6.4 mmol/L (3.5-5.1)
[2021-05-02] MEDS: LORAZEPAM INJ 2 MG/ML VIAL IV PRN (13:44)
[2021-05-02 20:00] VITALS: BP 137/72
[2021-05-02] MEDS: MONTELUKAST SODIUM (10MG) 10 MG TABLET PO SCH (21:02)
[2021-05-02] MEDS ORDERED: LIDOCAINE HCL/PF 1% 30 ML SDV ONE (21:56)
[2021-05-02] MEDS ORDERED: LIDOCAINE 1% INJ 50 ML MDV IJ ONE (22:30)
[2021-05-03] VITALS: BP 127/70
[2021-05-03 04:00] VITALS: BP 141/80
[2021-05-03] MEDS: HYDROMORPHONE 1 MG/1 ML DISP.SYRIN IV PRN ×3 (04:01→18:32)
[2021-05-03] MEDS: PANTOPRAZOLE 40 MG TABLET.DR PO SCH (07:30)
[2021-05-03] MEDS: LEVOTHYROXINE SODIUM 50 MCG TABLET PO SCH (07:30)
[2021-05-03 08:36] LABS: BASOPHILS % (AUTO) 0.4 % (0.0-2.0); EOSINOPHILS % (AUTO) 5.9 % (0.0-6.0); HEMATOCRIT 21 % (33-45); LYMPHOCYTES # (AUTO) 0.2 K/uL (0.8-4.8); LYMPHOCYTES % (AUTO) 8.4 % (20.0-44.0); MEAN CORPUSCULAR HGB CONC 33 g/dl (31.0-36.0); MEAN CORPUSCULAR VOLUME 100 fL (82-100); MONOCYTES # (AUTO) 0.4 K/uL (0.1-1.30); MONOCYTES % (AUTO) 15.2 % (2.0-12.0); NEUTROPHILS # (AUTO) 1.8 K/uL (1.8-8.9); NEUTROPHILS % (AUTO) 70.1 % (43.0-81.0); PLATELET COUNT (AUTO) 75 K/uL (150-450); RED BLOOD CELL COUNT(AUTO) 2.11 MIL/uL (4.0-5.2); WHITE BLOOD COUNT (AUTO) 2.6 K/uL (4.3-11.0)
[2021-05-03 08:41] LABS: HEMOGLOBIN 6.9 g/dL (11.5-14.8)
[2021-05-03 08:46] LABS: ALBUMIN 3.5 g/dL (3.4-5.0); BILIRUBIN,TOTAL 0.4 mg/dL (0.2-1.0); CALCIUM, SERUM 7.7 mg/dL (8.5-10.1); MAGNESIUM 2.1 mg/dL (1.8-2.4); PHOSPHORUS 5.3 mg/dL (2.5-4.9); TOTAL PROTEIN, SERUM 7.2 g/dL (6.4-8.2)
[2021-05-03 08:51] LABS: CREATININE 8.4 mg/dL (0.6-1.3)
[2021-05-03] MEDS: NIFEdipine XL (30MG) 30 MG TAB PO SCH (09:00)
[2021-05-03] MEDS: QUETIAPINE FUMARATE 100 MG TABLET PO SCH ×2 (09:00→21:03)
[2021-05-03] MEDS: SEVELAMER CARBONATE 800 MG TABLET PO SCH ×3 (09:00→17:14)
[2021-05-03] MEDS: TOPIRAMATE 100 MG TABLET PO SCH ×2 (09:01→17:11)
[2021-05-03] MEDS: CARVEDILOL 12.5 MG TABLET PO SCH ×2 (09:01→21:06)
[2021-05-03] MEDS: CALCIUM ACETATE 667 MG CAP/TAB PO SCH ×3 (09:01→17:14)
[2021-05-03] MEDS: hydrALAZINE HCL 50 MG TABLET PO SCH ×2 (09:02→17:10)
[2021-05-03] MEDS: FUROSEMIDE 40 MG TABLET PO SCH ×2 (09:02→17:10)
[2021-05-03] MEDS: DOXAZOSIN MESYLATE (4 MG) 4 MG TABLET PO SCH (09:05)
[2021-05-03 10:36] LABS: EOSINOPHILS % (MANUAL) 7 % (0-4); LYMPHOCYTES % (MANUAL) 9 % (16-48); MONOCYTES % (MANUAL) 14 % (0-11.0); NEUTROPHILS % (MANUAL) 70 (42-76)
[2021-05-03] MEDS: LORAZEPAM INJ 2 MG/ML VIAL IV PRN ×2 (11:31→19:47)
[2021-05-03 13:53] VITALS: BP 156/98
[2021-05-03 14:15] VITALS: BP 149/89
[2021-05-03 20:00] VITALS: BP 154/84
[2021-05-03] MEDS: MONTELUKAST SODIUM (10MG) 10 MG TABLET PO SCH (21:04)
[2021-05-04] VITALS: BP 150/87
[2021-05-04] MEDS: HYDROMORPHONE 1 MG/1 ML DISP.SYRIN IV PRN ×5 (00:25→23:34)
[2021-05-04 04:00] VITALS: BP 177/104
[2021-05-04] MEDS: hydrALAZINE HCL IV 20 MG VIAL IV PRN (05:13)
[2021-05-04 07:27] LABS: BASOPHILS % (AUTO) 0.7 % (0.0-2.0); EOSINOPHILS % (AUTO) 6.7 % (0.0-6.0); HEMATOCRIT 24 % (33-45); HEMOGLOBIN 7.9 g/dL (11.5-14.8); LYMPHOCYTES # (AUTO) 0.3 K/uL (0.8-4.8); LYMPHOCYTES % (AUTO) 9.2 % (20.0-44.0); MEAN CORPUSCULAR HGB CONC 33 g/dl (31.0-36.0); MEAN CORPUSCULAR VOLUME 99 fL (82-100); MONOCYTES # (AUTO) 0.5 K/uL (0.1-1.30); MONOCYTES % (AUTO) 14.8 % (2.0-12.0); NEUTROPHILS # (AUTO) 2.3 K/uL (1.8-8.9); NEUTROPHILS % (AUTO) 68.6 % (43.0-81.0); PLATELET COUNT (AUTO) 88 K/uL (150-450); RED BLOOD CELL COUNT(AUTO) 2.45 MIL/uL (4.0-5.2); WHITE BLOOD COUNT (AUTO) 3.3 K/uL (4.3-11.0)
[2021-05-04 07:48] LABS: ALBUMIN 3.8 g/dL (3.4-5.0); BILIRUBIN,TOTAL 0.4 mg/dL (0.2-1.0); CALCIUM, SERUM 8.6 mg/dL (8.5-10.1); MAGNESIUM 2.3 mg/dL (1.8-2.4); PHOSPHORUS 5.1 mg/dL (2.5-4.9); POTASSIUM 4.8 mmol/L (3.5-5.1); TOTAL PROTEIN, SERUM 7.7 g/dL (6.4-8.2)
[2021-05-04 07:50] LABS: CREATININE 8.1 mg/dL (0.6-1.3)
[2021-05-04 08:00] VITALS: BP 157/100
[2021-05-04] MEDS: CALCIUM ACETATE 667 MG CAP/TAB PO SCH ×3 (08:19→17:10)
[2021-05-04] MEDS: LEVOTHYROXINE SODIUM 50 MCG TABLET PO SCH (08:19)
[2021-05-04] MEDS: SEVELAMER CARBONATE 800 MG TABLET PO SCH ×3 (08:19→17:10)
[2021-05-04] MEDS: TOPIRAMATE 100 MG TABLET PO SCH ×2 (08:20→17:11)
[2021-05-04] MEDS: PANTOPRAZOLE 40 MG TABLET.DR PO SCH (08:20)
[2021-05-04] MEDS: QUETIAPINE FUMARATE 100 MG TABLET PO SCH ×2 (08:20→21:31)
[2021-05-04] MEDS: FUROSEMIDE 40 MG TABLET PO SCH ×2 (08:20→17:10)
[2021-05-04] MEDS: DOXAZOSIN MESYLATE (4 MG) 4 MG TABLET PO SCH (08:22)
[2021-05-04] MEDS: NIFEdipine XL (30MG) 30 MG TAB PO SCH (08:22)
[2021-05-04] MEDS: CARVEDILOL 12.5 MG TABLET PO SCH ×2 (08:23→21:31)
[2021-05-04] MEDS: hydrALAZINE HCL 50 MG TABLET PO SCH ×2 (08:24→17:18)
[2021-05-04 12:00] VITALS: BP 142/85
[2021-05-04] MEDS: LORAZEPAM INJ 2 MG/ML VIAL IV PRN ×2 (12:30→18:10)
[2021-05-04 16:00] VITALS: BP 157/87
[2021-05-04] MEDS: EPOETIN ALFA (4000 UNIT) 4,000 UNIT/ML VIAL IV SCH (16:51)
[2021-05-04 20:00] VITALS: BP 158/91
[2021-05-04] MEDS: MONTELUKAST SODIUM (10MG) 10 MG TABLET PO SCH (21:30)
[2021-05-05] VITALS (8 sets, daily range): BP systolic 106–169; BP diastolic 68–100
[2021-05-05] MEDS: LORAZEPAM INJ 2 MG/ML VIAL IV PRN ×3 (02:48→21:28)
[2021-05-05] MEDS: SEVELAMER CARBONATE 800 MG TABLET PO SCH ×3 (07:42→17:08)
[2021-05-05] MEDS: PANTOPRAZOLE 40 MG TABLET.DR PO SCH (07:42)
[2021-05-05] MEDS: LEVOTHYROXINE SODIUM 50 MCG TABLET PO SCH (07:42)
[2021-05-05] MEDS: CALCIUM ACETATE 667 MG CAP/TAB PO SCH ×3 (07:42→17:10)
[2021-05-05] MEDS: HYDROMORPHONE 1 MG/1 ML DISP.SYRIN IV PRN ×4 (07:43→22:52)
[2021-05-05] MEDS: hydrALAZINE HCL 50 MG TABLET PO SCH ×2 (09:00→17:09)
[2021-05-05] MEDS: NIFEdipine XL (30MG) 30 MG TAB PO SCH (09:00)
[2021-05-05] MEDS: CARVEDILOL 12.5 MG TABLET PO SCH ×2 (09:01→21:10)
[2021-05-05] MEDS: FUROSEMIDE 40 MG TABLET PO SCH ×2 (09:02→17:09)
[2021-05-05] MEDS: TOPIRAMATE 100 MG TABLET PO SCH ×2 (09:02→17:10)
[2021-05-05] MEDS: QUETIAPINE FUMARATE 100 MG TABLET PO SCH ×2 (09:02→21:10)
[2021-05-05] MEDS: DOXAZOSIN MESYLATE (4 MG) 4 MG TABLET PO SCH (09:02)
[2021-05-05 12:09] LABS: BASOPHILS % (AUTO) 0.7 % (0.0-2.0); EOSINOPHILS % (AUTO) 5.8 % (0.0-6.0); HEMATOCRIT 24 % (33-45); HEMOGLOBIN 7.8 g/dL (11.5-14.8); LYMPHOCYTES # (AUTO) 0.3 K/uL (0.8-4.8); LYMPHOCYTES % (AUTO) 6.8 % (20.0-44.0); MEAN CORPUSCULAR HGB CONC 33 g/dl (31.0-36.0); MEAN CORPUSCULAR VOLUME 99 fL (82-100); MONOCYTES # (AUTO) 0.5 K/uL (0.1-1.30); MONOCYTES % (AUTO) 13.3 % (2.0-12.0); NEUTROPHILS % (AUTO) 73.4 % (43.0-81.0); PLATELET COUNT (AUTO) 81 K/uL (150-450); RED BLOOD CELL COUNT(AUTO) 2.39 MIL/uL (4.0-5.2); WHITE BLOOD COUNT (AUTO) 4.1 K/uL (4.3-11.0)
[2021-05-05 12:20] LABS: ALBUMIN 3.7 g/dL (3.4-5.0); BILIRUBIN,TOTAL 0.3 mg/dL (0.2-1.0); CALCIUM, SERUM 8.3 mg/dL (8.5-10.1); PHOSPHORUS 4.1 mg/dL (2.5-4.9); POTASSIUM 4.4 mmol/L (3.5-5.1); TOTAL PROTEIN, SERUM 7.7 g/dL (6.4-8.2)
[2021-05-05] MEDS: hydrALAZINE HCL IV 20 MG VIAL IV PRN (12:49)
[2021-05-05 13:52] LABS: BAND % (MANUAL) 1 % (0.0-5.0); EOSINOPHILS % (MANUAL) 7 % (0-4); LYMPHOCYTES % (MANUAL) 7 % (16-48); MONOCYTES % (MANUAL) 14 % (0-11.0); NEUTROPHILS % (MANUAL) 71 (42-76)
[2021-05-05] MEDS: MONTELUKAST SODIUM (10MG) 10 MG TABLET PO SCH (21:09)
[2021-05-06] MEDS: HYDROMORPHONE 1 MG/1 ML DISP.SYRIN IV PRN ×4 (03:35→20:58)
[2021-05-06 08:00] VITALS: BP 160/102
[2021-05-06] MEDS: FUROSEMIDE 40 MG TABLET PO SCH ×2 (08:16→16:06)
[2021-05-06] MEDS: LEVOTHYROXINE SODIUM 50 MCG TABLET PO SCH (08:17)
[2021-05-06] MEDS: PANTOPRAZOLE 40 MG TABLET.DR PO SCH (08:17)
[2021-05-06] MEDS: SEVELAMER CARBONATE 800 MG TABLET PO SCH ×4 (08:17→18:07)
[2021-05-06] MEDS: CALCIUM ACETATE 667 MG CAP/TAB PO SCH ×4 (08:17→18:07)
[2021-05-06] MEDS: TOPIRAMATE 100 MG TABLET PO SCH ×2 (08:17→16:06)
[2021-05-06] MEDS: QUETIAPINE FUMARATE 100 MG TABLET PO SCH ×2 (08:17→22:25)
[2021-05-06] MEDS: CARVEDILOL 12.5 MG TABLET PO SCH ×2 (08:39→20:59)
[2021-05-06] MEDS: hydrALAZINE HCL 50 MG TABLET PO SCH ×2 (08:39→16:06)
[2021-05-06] MEDS: DOXAZOSIN MESYLATE (4 MG) 4 MG TABLET PO SCH (08:39)
[2021-05-06] MEDS: NIFEdipine XL (30MG) 30 MG TAB PO SCH (08:40)
[2021-05-06 16:00] VITALS: BP 129/76
[2021-05-06 20:21] VITALS: BP 140/82
[2021-05-06 20:21] LABS: ALBUMIN 3.9 g/dL (3.4-5.0); BILIRUBIN,TOTAL 0.4 mg/dL (0.2-1.0); CALCIUM, SERUM 8.7 mg/dL (8.5-10.1); MAGNESIUM 2.2 mg/dL (1.8-2.4); PHOSPHORUS 4.2 mg/dL (2.5-4.9); POTASSIUM 5.3 mmol/L (3.5-5.1); TOTAL PROTEIN, SERUM 8.2 g/dL (6.4-8.2)
[2021-05-06 20:25] LABS: CREATININE 9.2 mg/dL (0.6-1.3)
[2021-05-06] MEDS: MONTELUKAST SODIUM (10MG) 10 MG TABLET PO SCH (22:25)
[2021-05-07] MEDS: LORAZEPAM INJ 2 MG/ML VIAL IV PRN ×3 (00:29→15:41)
[2021-05-07] MEDS: HYDROMORPHONE 1 MG/1 ML DISP.SYRIN IV PRN ×5 (02:10→21:59)
[2021-05-07 06:37] LABS: BASOPHILS % (AUTO) 0.5 % (0.0-2.0); EOSINOPHILS % (AUTO) 5.6 % (0.0-6.0); HEMATOCRIT 23 % (33-45); HEMOGLOBIN 7.6 g/dL (11.5-14.8); LYMPHOCYTES # (AUTO) 0.3 K/uL (0.8-4.8); LYMPHOCYTES % (AUTO) 6.6 % (20.0-44.0); MEAN CORPUSCULAR HGB CONC 33 g/dl (31.0-36.0); MEAN CORPUSCULAR VOLUME 99 fL (82-100); MONOCYTES # (AUTO) 0.6 K/uL (0.1-1.30); MONOCYTES % (AUTO) 11.6 % (2.0-12.0); NEUTROPHILS # (AUTO) 3.8 K/uL (1.8-8.9); NEUTROPHILS % (AUTO) 75.7 % (43.0-81.0); PLATELET COUNT (AUTO) 85 K/uL (150-450); RED BLOOD CELL COUNT(AUTO) 2.34 MIL/uL (4.0-5.2); WHITE BLOOD COUNT (AUTO) 5.1 K/uL (4.3-11.0)
[2021-05-07 06:54] LABS: ALBUMIN 3.7 g/dL (3.4-5.0); BILIRUBIN,TOTAL 0.4 mg/dL (0.2-1.0); CALCIUM, SERUM 8.5 mg/dL (8.5-10.1); PHOSPHORUS 4.3 mg/dL (2.5-4.9); TOTAL PROTEIN, SERUM 7.7 g/dL (6.4-8.2)
[2021-05-07 07:00] LABS: CREATININE 9.8 mg/dL (0.6-1.3)
[2021-05-07 08:00] VITALS: BP 164/102
[2021-05-07] MEDS: LEVOTHYROXINE SODIUM 50 MCG TABLET PO SCH (08:24)
[2021-05-07] MEDS: QUETIAPINE FUMARATE 100 MG TABLET PO SCH ×2 (08:24→22:52)
[2021-05-07] MEDS: PANTOPRAZOLE 40 MG TABLET.DR PO SCH (08:25)
[2021-05-07] MEDS: CALCIUM ACETATE 667 MG CAP/TAB PO SCH ×3 (08:25→17:52)
[2021-05-07] MEDS: SEVELAMER CARBONATE 800 MG TABLET PO SCH ×3 (08:25→17:52)
[2021-05-07] MEDS: TOPIRAMATE 100 MG TABLET PO SCH ×2 (08:25→17:52)
[2021-05-07] MEDS: hydrALAZINE HCL 50 MG TABLET PO SCH ×2 (09:00→15:55)
[2021-05-07] MEDS: EPOETIN ALFA (4000 UNIT) 4,000 UNIT/ML VIAL IV SCH (13:19)
[2021-05-07] MEDS: FUROSEMIDE 40 MG TABLET PO SCH ×2 (13:28→17:52)
[2021-05-07] MEDS: CARVEDILOL 12.5 MG TABLET PO SCH ×2 (13:29→20:36)
[2021-05-07] MEDS: DOXAZOSIN MESYLATE (4 MG) 4 MG TABLET PO SCH (13:30)
[2021-05-07] MEDS: NIFEdipine XL (30MG) 30 MG TAB PO SCH (15:56)
[2021-05-07 16:00] VITALS: BP 180/112
[2021-05-07 20:16] VITALS: BP 160/72
[2021-05-07] MEDS: MONTELUKAST SODIUM (10MG) 10 MG TABLET PO SCH (22:51)
[2021-05-08] VITALS: BP 146/78
[2021-05-08] MEDS: LORAZEPAM INJ 2 MG/ML VIAL IV PRN ×4 (00:40→23:59)
[2021-05-08] MEDS: HYDROMORPHONE 1 MG/1 ML DISP.SYRIN IV PRN ×4 (02:16→20:35)
[2021-05-08 07:03] LABS: BASOPHILS % (AUTO) 0.7 % (0.0-2.0); EOSINOPHILS % (AUTO) 6.6 % (0.0-6.0); HEMATOCRIT 22 % (33-45); HEMOGLOBIN 7.5 g/dL (11.5-14.8); LYMPHOCYTES # (AUTO) 0.3 K/uL (0.8-4.8); LYMPHOCYTES % (AUTO) 7.4 % (20.0-44.0); MEAN CORPUSCULAR HGB CONC 33 g/dl (31.0-36.0); MEAN CORPUSCULAR VOLUME 98 fL (82-100); MONOCYTES # (AUTO) 0.6 K/uL (0.1-1.30); MONOCYTES % (AUTO) 13.1 % (2.0-12.0); NEUTROPHILS # (AUTO) 3.4 K/uL (1.8-8.9); NEUTROPHILS % (AUTO) 72.2 % (43.0-81.0); PLATELET COUNT (AUTO) 99 K/uL (150-450); RED BLOOD CELL COUNT(AUTO) 2.28 MIL/uL (4.0-5.2); WHITE BLOOD COUNT (AUTO) 4.7 K/uL (4.3-11.0)
[2021-05-08] MEDS: PANTOPRAZOLE 40 MG TABLET.DR PO SCH (07:30)
[2021-05-08 07:37] LABS: CALCIUM, SERUM 8.3 mg/dL (8.5-10.1); POTASSIUM 4.8 mmol/L (3.5-5.1)
[2021-05-08 07:43] LABS: CREATININE 7.8 mg/dL (0.6-1.3)
[2021-05-08 08:00] VITALS: BP 149/88
[2021-05-08] MEDS: CALCIUM ACETATE 667 MG CAP/TAB PO SCH ×3 (08:41→17:50)
[2021-05-08] MEDS: FUROSEMIDE 40 MG TABLET PO SCH ×2 (08:42→17:50)
[2021-05-08] MEDS: SEVELAMER CARBONATE 800 MG TABLET PO SCH ×3 (08:43→17:52)
[2021-05-08] MEDS: CARVEDILOL 12.5 MG TABLET PO SCH ×2 (08:46→21:31)
[2021-05-08] MEDS: DOXAZOSIN MESYLATE (4 MG) 4 MG TABLET PO SCH (08:46)
[2021-05-08] MEDS: TOPIRAMATE 100 MG TABLET PO SCH ×2 (08:47→17:51)
[2021-05-08] MEDS: NIFEdipine XL (30MG) 30 MG TAB PO SCH (08:47)
[2021-05-08] MEDS: hydrALAZINE HCL 50 MG TABLET PO SCH ×2 (08:47→17:51)
[2021-05-08] MEDS: LEVOTHYROXINE SODIUM 50 MCG TABLET PO SCH (08:48)
[2021-05-08] MEDS: QUETIAPINE FUMARATE 100 MG TABLET PO SCH ×2 (08:48→21:32)
[2021-05-08 16:00] VITALS: BP 134/95
[2021-05-08 20:00] VITALS: BP 131/84
[2021-05-08] MEDS: MONTELUKAST SODIUM (10MG) 10 MG TABLET PO SCH (21:31)
[2021-05-09] MEDS: HYDROMORPHONE 1 MG/1 ML DISP.SYRIN IV PRN ×5 (02:21→22:12)
[2021-05-09 08:00] VITALS: BP 158/91
[2021-05-09] MEDS: CALCIUM ACETATE 667 MG CAP/TAB PO SCH ×3 (08:40→17:40)
[2021-05-09] MEDS: PANTOPRAZOLE 40 MG TABLET.DR PO SCH (08:40)
[2021-05-09] MEDS: LEVOTHYROXINE SODIUM 50 MCG TABLET PO SCH (08:40)
[2021-05-09] MEDS: SEVELAMER CARBONATE 800 MG TABLET PO SCH ×3 (08:40→17:40)
[2021-05-09] MEDS: QUETIAPINE FUMARATE 100 MG TABLET PO SCH ×2 (08:40→21:53)
[2021-05-09] MEDS: TOPIRAMATE 100 MG TABLET PO SCH ×2 (08:41→17:40)
[2021-05-09] MEDS: FUROSEMIDE 40 MG TABLET PO SCH ×2 (08:41→17:40)
[2021-05-09] MEDS: NIFEdipine XL (30MG) 30 MG TAB PO SCH (08:41)
[2021-05-09] MEDS: CARVEDILOL 12.5 MG TABLET PO SCH ×2 (08:42→20:46)
[2021-05-09] MEDS: hydrALAZINE HCL 50 MG TABLET PO SCH ×2 (08:42→17:41)
[2021-05-09] MEDS: DOXAZOSIN MESYLATE (4 MG) 4 MG TABLET PO SCH (08:42)
[2021-05-09] MEDS: LORAZEPAM INJ 2 MG/ML VIAL IV PRN ×3 (08:43→21:01)
[2021-05-09 16:00] VITALS: BP 138/81
[2021-05-09 20:00] VITALS: BP 157/92
[2021-05-09] MEDS: MONTELUKAST SODIUM (10MG) 10 MG TABLET PO SCH (21:53)
[2021-05-10] MEDS: HYDROMORPHONE 1 MG/1 ML DISP.SYRIN IV PRN ×5 (02:12→22:00)
[2021-05-10] MEDS ORDERED: HEPARIN SODIUM, PORCINE 1,000 UNIT/ML VIAL ONE (07:29)
[2021-05-10] MEDS ORDERED: LIDOCAINE 1% INJ 50 ML MDV IJ ONE (07:29)
[2021-05-10] MEDS ORDERED: IOHEXOL 240MG/ML 0 ML IV ONE (07:29)
[2021-05-10] MEDS: PANTOPRAZOLE 40 MG TABLET.DR PO SCH (07:30)
[2021-05-10] MEDS: LEVOTHYROXINE SODIUM 50 MCG TABLET PO SCH (07:30)
[2021-05-10] MEDS: CALCIUM ACETATE 667 MG CAP/TAB PO SCH ×3 (08:00→17:16)
[2021-05-10] MEDS: SEVELAMER CARBONATE 800 MG TABLET PO SCH ×3 (08:00→17:16)
[2021-05-10] MEDS: hydrALAZINE HCL 50 MG TABLET PO SCH ×2 (09:00→16:45)
[2021-05-10] MEDS: CARVEDILOL 12.5 MG TABLET PO SCH ×2 (09:00→21:00)
[2021-05-10] MEDS: DOXAZOSIN MESYLATE (4 MG) 4 MG TABLET PO SCH (09:00)
[2021-05-10] MEDS: QUETIAPINE FUMARATE 100 MG TABLET PO SCH ×2 (09:00→22:00)
[2021-05-10] MEDS: TOPIRAMATE 100 MG TABLET PO SCH ×2 (09:00→17:16)
[2021-05-10] MEDS: FUROSEMIDE 40 MG TABLET PO SCH ×2 (09:00→16:46)
[2021-05-10] MEDS: NIFEdipine XL (30MG) 30 MG TAB PO SCH (09:00)
[2021-05-10] MEDS ORDERED: FENTANYL PF 100MCG/2ML AMPUL ONE (09:09)
[2021-05-10 09:29] LABS: CALCIUM, SERUM 8.5 mg/dL (8.5-10.1); POTASSIUM 4.9 mmol/L (3.5-5.1)
[2021-05-10 09:34] LABS: CREATININE 8.3 mg/dL (0.6-1.3)
[2021-05-10] MEDS: LORAZEPAM INJ 2 MG/ML VIAL IV PRN ×2 (12:16→23:19)
[2021-05-10] MEDS ORDERED: HYDROMORPHONE 1 MG/1 ML DISP.SYRIN IV ONE (14:00)
[2021-05-10] MEDS: diphenhydrAMINE HCL 50 MG/ML VIAL IV PRN (17:40)
[2021-05-10] MEDS: ANCEF 1 GM/50 ML D5W IV SCH (19:23)
[2021-05-10 20:00] VITALS: BP 160/92
[2021-05-10] MEDS: MONTELUKAST SODIUM (10MG) 10 MG TABLET PO SCH (22:00)
[2021-05-11] MEDS: diphenhydrAMINE HCL 50 MG/ML VIAL IV PRN ×2 (01:53→08:13)
[2021-05-11] MEDS: ANCEF 1 GM/50 ML D5W IV SCH (02:00)
[2021-05-11] MEDS: HYDROMORPHONE 1 MG/1 ML DISP.SYRIN IV PRN ×3 (02:48→11:48)
[2021-05-11] MEDS: LORAZEPAM INJ 2 MG/ML VIAL IV PRN (05:45)
[2021-05-11 08:00] VITALS: BP 169/89
[2021-05-11] MEDS: SEVELAMER CARBONATE 800 MG TABLET PO SCH ×2 (08:06→12:26)
[2021-05-11] MEDS: PANTOPRAZOLE 40 MG TABLET.DR PO SCH (08:06)
[2021-05-11] MEDS: CALCIUM ACETATE 667 MG CAP/TAB PO SCH ×2 (08:06→12:26)
[2021-05-11] MEDS: LEVOTHYROXINE SODIUM 50 MCG TABLET PO SCH (08:06)
[2021-05-11] MEDS: QUETIAPINE FUMARATE 100 MG TABLET PO SCH (08:53)
[2021-05-11] MEDS: hydrALAZINE HCL 50 MG TABLET PO SCH (08:53)
[2021-05-11] MEDS: DOXAZOSIN MESYLATE (4 MG) 4 MG TABLET PO SCH (08:55)
[2021-05-11] MEDS: FUROSEMIDE 40 MG TABLET PO SCH (08:55)
[2021-05-11] MEDS: NIFEdipine XL (30MG) 30 MG TAB PO SCH (08:55)
[2021-05-11] MEDS: TOPIRAMATE 100 MG TABLET PO SCH (08:55)
[2021-05-11 08:59] VITALS: BP 169/89
[2021-05-11] MEDS: CARVEDILOL 12.5 MG TABLET PO SCH (08:59)
== END 2021-05-11 15:00 | disposition home or self-care (01) | DRG 194 ==
LOC: ER 17:12 → TRANSITION 04-28 01:53 → TELE 04-28 08:25 → MED 04-29 11:09 → TELE-TD 05-02 13:56 → TELE1 05-02 17:46 → MEDSG1 05-04 19:18 → MED 05-05 22:46
PROVIDERS: ADMIT Student in an Organized Health Care Education/Training Program; ATTEND Internal Medicine
PROC: 05H533Z Insertion of Infusion Device into Right Subclavian Vein, Percutaneous Approach (ICD-10-PCS; 2021-04-28)
PROC: B546ZZA Ultrasonography of Right Subclavian Vein, Guidance (ICD-10-PCS; 2021-04-28)
PROC: 5A1D70Z Performance of Urinary Filtration, Intermittent, Less than 6 Hours Per Day (ICD-10-PCS; 2021-04-30)
PROC: 06HY33Z Insertion of Infusion Device into Lower Vein, Percutaneous Approach (ICD-10-PCS; 2021-05-02)
PROC: 30233N1 Transfusion of Nonautologous Red Blood Cells into Peripheral Vein, Percutaneous Approach (ICD-10-PCS; principal; 2021-05-03)
PROC: 0JH63XZ Insertion of Tunneled Vascular Access Device into Chest Subcutaneous Tissue and Fascia, Percutaneous Approach (ICD-10-PCS; 2021-05-10)
PROC: 06H033Z Insertion of Infusion Device into Inferior Vena Cava, Percutaneous Approach (ICD-10-PCS; 2021-05-10)
PROC: B519YZA Fluoroscopy of Inferior Vena Cava using Other Contrast, Guidance (ICD-10-PCS; 2021-05-10)
DX: I13.2 Hypertensive heart and chronic kidney disease with heart failure and with stage 5 chronic kidney disease, or end stage renal disease (principal); D61.818 Other pancytopenia; I27.20 Pulmonary hypertension, unspecified; J90 Pleural effusion, not elsewhere classified; N18.6 End stage renal disease; D63.1 Anemia in chronic kidney disease; F25.9 Schizoaffective disorder, unspecified; E83.9 Disorder of mineral metabolism, unspecified; Z79.01 Long term (current) use of anticoagulants; I50.23 Acute on chronic systolic (congestive) heart failure; I16.0 Hypertensive urgency; E87.5 Hyperkalemia; Z20.822 Contact with and (suspected) exposure to COVID-19; E03.9 Hypothyroidism, unspecified; F32.A Depression, unspecified; F41.9 Anxiety disorder, unspecified; K21.9 Gastro-esophageal reflux disease without esophagitis; K59.00 Constipation, unspecified; Z86.73 Personal history of transient ischemic attack (TIA), and cerebral infarction without residual deficits; Z87.891 Personal history of nicotine dependence; Z99.2 Dependence on renal dialysis; Z86.718 Personal history of other venous thrombosis and embolism; Z86.711 Personal history of pulmonary embolism; R60.9 Edema, unspecified; M81.0 Age-related osteoporosis without current pathological fracture; N64.89 Other specified disorders of breast; J45.909 Unspecified asthma, uncomplicated; I48.91 Unspecified atrial fibrillation; T82.858A Stenosis of other vascular prosthetic devices, implants and grafts, initial encounter; Y84.8 Other medical procedures as the cause of abnormal reaction of the patient, or of later complication, without mention of misadventure at the time of the procedure; Y92.009 Unspecified place in unspecified non-institutional (private) residence as the place of occurrence of the external cause
CPT/HCPCS: 36410; 36415; 71045-TC; 71260-TC; 76604-TC; 80048-TC; 80053-TC; 83735-TC; 83880; 84100-TC; 84484-TC; 84703-TC; 85025-TC; 85610-TC; 85730-TC; 86850-TC; 87081-TC; 90935-TC; 93971-TC; A6403; C1750; C1757; C1769; C1894; C9803; G0378; J0360; J0690; J0885; J1170; J1200; J1644; J1815; J2060; J2270; J2405; J2704; J3010; J3490; J7030; J7050; J7060; P9016; Q9966; Q9967

== ENCOUNTER 2021-05-14 22:45 | Inpatient (IN) | payer MEDICAID ==
[~2021-05-14] VITALS: Ht 167.6 cm; Wt 87.5 kg
--- NOTE | 2021-05-14 23:35 | NUR ---
PT BIBSELF C/O DIFFICULTY BREATHING AND PAIN ON LEFT LEG S/P PORT PLACEMENT X 1 WEEK. PT AAOX4 BREATHING EVENLY, STAURATING 98% ON RA. PT ATTACHED TO MONITOR AND POX. PT CHANGED INTO MD SHIRA AT BEDSIDE FOR EVAL. PT GIVEN BLANKET AND CALL LIGHT WITHIN REACH
--- NOTE | 2021-05-14 23:50 | NUR ---
LAB AT BEDSIDE
[2021-05-14] MEDS ORDERED: hydrALAZINE HCL IV 20 MG VIAL ONE (23:56)
[2021-05-15] LABS: EOSINOPHILS % (AUTO) 4.7 % (0.0-6.0); HEMATOCRIT 25 % (33-45); HEMOGLOBIN 8.1 g/dL (11.5-14.8); LYMPHOCYTES # (AUTO) 0.4 K/uL (0.8-4.8); LYMPHOCYTES % (AUTO) 9.1 % (20.0-44.0); MEAN CORPUSCULAR HGB CONC 32 g/dl (31.0-36.0); MEAN CORPUSCULAR VOLUME 100 fL (82-100); MONOCYTES # (AUTO) 0.3 K/uL (0.1-1.30); MONOCYTES % (AUTO) 7.4 % (2.0-12.0); NEUTROPHILS # (AUTO) 3.6 K/uL (1.8-8.9); NEUTROPHILS % (AUTO) 78.8 % (43.0-81.0); PLATELET COUNT (AUTO) 120 K/uL (150-450); WHITE BLOOD COUNT (AUTO) 4.6 K/uL (4.3-11.0)
--- NOTE | 2021-05-15 | NUR ---
EMT AT BEDSIDE FOR EKG
[2021-05-15 00:09] LABS: CALCIUM, SERUM 8.5 mg/dL (8.5-10.1); POTASSIUM 5.7 mmol/L (3.5-5.1)
[2021-05-15] MEDS ORDERED: SODIUM POLYSTYRENE SULFONATE 15 G/60 ML BOTTLE ONE (00:20)
--- NOTE | 2021-05-15 00:26 | NUR ---
CALLED MOTHER FOR DAUGHTER'S PHONE NUMBER. NUMBER IS OUT OF SERVICE. CALLED SECOND DAUGHTER [phone] (). AND LEFT A MESSAGE ASKING FOR FIRST DAUGHTER'S NUMBER
[2021-05-15] MEDS ORDERED: SODIUM POLYSTYRENE SULFONATE 15 G/60 ML BOTTLE PO ONE (00:30)
[2021-05-15] MEDS ORDERED: MORPHINE SULFATE INJ 2 MG/ML DISP.SYRIN IV PRN (00:30)
[2021-05-15] MEDS ORDERED: DEXTROSE 50%-WATER 50 ML DISP.SYRIN IVP ONE (00:30)
[2021-05-15] MEDS ORDERED: SODIUM POLYSTYRENE SULF. PWD 15 GM UDC PO ONE (00:30)
[2021-05-15] MEDS ORDERED: ACETAMINOPHEN 325 MG TABLET PO PRN (00:30)
[2021-05-15] MEDS ORDERED: ONDANSETRON HCL/PF 4 MG/2 ML VIAL IVP PRN (00:30)
[2021-05-15] MEDS ORDERED: LABETALOL 20 MG/4 ML VIAL IV PRN (00:30)
[2021-05-15] MEDS ORDERED: INSULIN REGULAR, HUMAN 100 UNIT/ML 10 ML VIAL IV ONE (00:30)
[2021-05-15] MEDS ORDERED: hydrALAZINE HCL IV 20 MG VIAL ONE (00:47)
[2021-05-15] MEDS ORDERED: hydrALAZINE HCL IV 20 MG VIAL IV ONE ×2 (01:00)
--- NOTE | 2021-05-15 01:22 | NUR ---
CALLED [facility]IGHT PHARMACY TO HAVE MEDICATIONS VERIFIED.
[2021-05-15] MEDS ORDERED: MORPHINE SULFATE INJ 2 MG/ML DISP.SYRIN ONE (01:23)
--- NOTE | 2021-05-15 01:45 | NUR ---
CALLED LAB FOR COVID SWAB F/U, PER LAB, "THERE ARE 3 SWABS, SO IT TAKES A WHILE"
[2021-05-15] MEDS ORDERED: ALBUTEROL FS 2.5 MG/3 ML VIAL.NEB NEB PRN (02:00)
--- NOTE | 2021-05-15 02:04 | NUR ---
GAVE REPORT TO YENIFER JAVIER FOR FRANSICO
[2021-05-15 02:14] VITALS: BP 177/98
--- NOTE | 2021-05-15 02:14 | NUR ---
GLASS CUTTER HAND ADMITTING NOTE PT TRANSPORTED BY [facility] TO UNIT FROM ED AT THIS TIME. RECEIVED REPORT FROM YENIFER TALAMANTES @ ED, A/O X4. PT ABLE TO COMMUNICATE NEEDS. NO SOB NOTED, NO C/O PAIN AT THIS TIME, NO S/S OF ANY APPARENT DISTRESS NOTED. RESPIRATIONS EVEN AND UNLABORED, ACTIVE BOWEL SOUNDS AUSCULTATED THROUGHOUT, ABDOMEN IS NON TENDER AND NON DISTENDED. PT REFUSED SKIN ASSESSMENT. CAPILLARY REFILL <3 SECONDS, PULSES PRESENT BILATERALLY, GOOD CIRCULATION NOTED. IV ACCESS NOTED IN LEFT FOREARM G #20, INTACT, PATENT AND FLUSHING WELL. PT REFUSED FOR HER BELONGINGS TO BE CHECKED. BELONGINGS KEPT AT PT'S BEDSIDE PER PT REQUEST. ASPIRATION AND SAFETY PRECAUTIONS IN PLACE AND MAINTAINED AT ALL TIMES. BED IN LOWEST LOCKED POSITION, SIDE RAILS UP X2, TABLE AND CALL LIGHT WITHIN REACH. WILL CONTINUE WITH PLAN OF CARE.
--- NOTE | 2021-05-15 02:18 | NUR ---
PT WAS TRANSFERRED TO THE THIRD FLOOR UNDER ACLS
[2021-05-15] MEDS: HYDROMORPHONE 1 MG/1 ML DISP.SYRIN IV PRN ×5 (03:27→17:15)
--- NOTE | 2021-05-15 03:27 | NUR ---
PT SCREAMING AND YELLING. PT STATED THAT MORPHINE DOESNT WORK FOR HER, MD WITT AND CHARGE NURSE LEANDRO MADE AWARE. DR ORDERED DILAUDID 1MG/1ML IV Q3HR PRN AT THIS TIME FOR SEVERE PAIN. WILL CONTINUE TO MONITOR. BP 177/98, HR 87. DR HONG MADE AWARE. HYDRALAZINE 10MG IV Q4HR PRN ADMINISTERED PER ORDER. WILL CONTINUE TO MONITOR.
[2021-05-15] MEDS: hydrALAZINE HCL IV 20 MG VIAL IV PRN (03:28)
--- NOTE | 2021-05-15 06:30 | NUR ---
telecommunications line installer closing notye pt remained stable throughout shift. will endorse to oncoming rn for basil.
--- NOTE | 2021-05-15 07:13 | NUR ---
MS RN OPENING NOTES RECEIVED PATIENT RESTING IN BED. PATIENT IS A/O X4. PATIENT IS BREATHING EVENLY AND NONLABORED ON ROOM AIR. NO SIGNS OF DISTRESS NOTED. PATIENT COMPLAINS OF PAIN, VITALS WNL WILL GIVE PRN PAIN MEDICATION ORDERED. PATIENT HAS IV ACCESS TO L FOREARM # 20 PATENT AND INTACT. PATIENT HAS R FEMORAL HD CATH. SAFETY MEASURES ARE IN PLACE, BED LOW LOCKED AND CALL LIGHT WITHIN REACH. WILL CONTINUE TO MONITOR
[2021-05-15] MEDS: SEVELAMER CARBONATE 800 MG TABLET PO SCH ×3 (07:35→17:00)
[2021-05-15] MEDS: CALCIUM ACETATE 667 MG CAP/TAB PO SCH ×3 (07:35→17:00)
[2021-05-15] MEDS: LEVOTHYROXINE SODIUM 50 MCG TABLET PO SCH (07:35)
--- NOTE | 2021-05-15 07:49 | NUR ---
sodium polystyrene not administered, charge nurse made aware of the time the medication was supposed to be given. charge nurse Nicole confirmed from [facility], said it was given in the ER. It is a one time dose.
[2021-05-15 08:00] VITALS: BP 188/113
[2021-05-15] MEDS: MONTELUKAST SODIUM (10MG) 10 MG TABLET PO SCH (08:18)
[2021-05-15] MEDS: DOXAZOSIN MESYLATE (4 MG) 4 MG TABLET PO SCH (08:18)
[2021-05-15] MEDS: APIXABAN 2.5 MG TABLET PO SCH ×2 (08:19→16:04)
[2021-05-15] MEDS: TOPIRAMATE 100 MG TABLET PO SCH ×2 (08:20→16:04)
[2021-05-15] MEDS: CARVEDILOL 12.5 MG TABLET PO SCH ×2 (08:20→16:04)
[2021-05-15] MEDS: QUETIAPINE FUMARATE 100 MG TABLET PO SCH ×2 (08:20→16:04)
[2021-05-15] MEDS: FUROSEMIDE 40 MG TABLET PO SCH ×2 (08:20→16:04)
[2021-05-15] MEDS: ASPIRIN EC 81 MG TABLET.DR PO SCH (08:20)
[2021-05-15] MEDS: NIFEdipine XL (30MG) 30 MG TAB PO SCH (08:20)
[2021-05-15] MEDS: hydrALAZINE HCL 50 MG TABLET PO SCH ×2 (08:21→16:03)
[2021-05-15 12:00] VITALS: BP 175/105
--- NOTE | 2021-05-15 16:12 | NUR ---
RN NOTE PATIENT HAVING DIALYSIS WILL HOLD BLOOD PRESSURE MEDICATION, MD AWARE. PRN MEDICATION IN PLACE IF NEEDED.
--- NOTE | 2021-05-15 18:20 | NUR ---
MS RN CLOSING NOTES PATIENT RESTING IN BED. PATIENT IS A/O X4. PATIENT IS BREATHING EVENLY AND NONLABORED ON ROOM AIR. NO SIGNS OF DISTRESS NOTED. DENIES PAIN OR DISCOMFORT AT THIS TIME. PATIENT HAS IV ACCESS TO L FOREARM # 20 PATENT AND INTACT. PATIENT HAS R FEMORAL HD CATH. PATIENT IS HAVING DIALYSIS TOLERATING WELL. SAFETY MEASURES ARE IN PLACE, BED LOW LOCKED AND CALL LIGHT WITHIN REACH. WILL ENDORSE TO ONCOMING SHIFT
[2021-05-15 20:00] VITALS: BP 164/100
[2021-05-16] VITALS: BP 168/100
[2021-05-16] MEDS: HYDROMORPHONE 1 MG/1 ML DISP.SYRIN IV PRN ×5 (00:21→22:23)
[2021-05-16 04:00] VITALS: BP 160/98
--- NOTE | 2021-05-16 06:39 | NUR ---
ARTIFICIAL FLOWERS SUPERVISOR NOTES AWAKE & RESPONSIVE. NOT IN ANY DISTRESS. NO SOB NOTED. DENIES ANY PAIN OR DISCOMFORT AT THIS TIME. ON TELE SR @ 80 WITH IV-HL PATENT & INTACT. MONITORED ACCORDINGLY. CALL LIGHT WITHIN REACH. BED IN LOWEST POSITION. SR UP X2 FOR SAFETY. WILL ENDORSE TO NEXT SHIFT.
--- NOTE | 2021-05-16 06:58 | NUR ---
SALAD BAR CLERK NOTES PT GOES DOWN TO SMOKE BY HIMSELF. PT DOESN'T CALL NURSE OR JOB PRINTER APPRENTICE FOR ASSISTANCE. PT UNHOOKS HIMSELF OFF THE IV. KEEPS ON INSISTING TO GO DOWN BY HIMSELF DESPITE EXPLAINING TO HIM HOSPITAL POLICY. PT NON COMPLIANT WITH HOSPITAL POLICY RE SMOKING HOURS.
[2021-05-16 08:00] VITALS: BP 157/88
[2021-05-16] MEDS: FUROSEMIDE 40 MG TABLET PO SCH ×2 (09:05→16:10)
[2021-05-16] MEDS: ASPIRIN EC 81 MG TABLET.DR PO SCH (09:05)
[2021-05-16] MEDS: CALCIUM ACETATE 667 MG CAP/TAB PO SCH ×3 (09:06→18:37)
[2021-05-16] MEDS: SEVELAMER CARBONATE 800 MG TABLET PO SCH ×3 (09:06→18:37)
[2021-05-16] MEDS: QUETIAPINE FUMARATE 100 MG TABLET PO SCH ×2 (09:06→16:14)
[2021-05-16] MEDS: MONTELUKAST SODIUM (10MG) 10 MG TABLET PO SCH (09:06)
[2021-05-16] MEDS: LEVOTHYROXINE SODIUM 50 MCG TABLET PO SCH (09:06)
[2021-05-16] MEDS: DOXAZOSIN MESYLATE (4 MG) 4 MG TABLET PO SCH (09:07)
[2021-05-16] MEDS: hydrALAZINE HCL 50 MG TABLET PO SCH ×2 (09:08→16:10)
[2021-05-16] MEDS: TOPIRAMATE 100 MG TABLET PO SCH ×2 (09:08→16:14)
[2021-05-16] MEDS: APIXABAN 2.5 MG TABLET PO SCH ×2 (09:08→16:16)
[2021-05-16] MEDS: CARVEDILOL 12.5 MG TABLET PO SCH ×2 (10:50→16:10)
[2021-05-16] MEDS: NIFEdipine XL (30MG) 30 MG TAB PO SCH (10:51)
--- NOTE | 2021-05-16 11:00 | NUR ---
RN NOTES- Pt BELONGINGS TRIED TO CHECK Pt'S BELONGINGS TO DOCUMENT BELONGING LIST, Pt REFUSED AND STATED "WHATEVER IS IN MY BAG, DOESN'T MATTER, I DON'T WANT ANYONE CHECKING"
[2021-05-16 12:00] VITALS: BP 147/86
--- NOTE | 2021-05-16 15:57 | NUR ---
RN NOTES- PAIN Pt COMPLAINING OF 9/10 PAIN RUNNING DOWN HER BACK. ADMINISTERED DILAUDID PER MD ORDER.
[2021-05-16 16:00] VITALS: BP 147/90
--- NOTE | 2021-05-16 16:11 | NUR ---
MS RN NOTES 1700 BP MEDS NON-ADMINISTERED. PATIENT ON HD RIGHT NOW.
--- NOTE | 2021-05-16 18:49 | NUR ---
TICKER INSTALLER CLOSING NOTES Pt IS AWAKE IN BED AND IS A/O X4. PATIENT IS BREATHING EVENLY AND NONLABORED ON ROOM AIR. NO SIGNS OF DISTRESS NOTED. DENIES PAIN OR DISCOMFORT AT THIS TIME. Pt CURRENTLY FINISHING UP HEMODIALYSIS AND IS TOLERATING WELL. Pt HAS IV ACCESS ON L FOREARM 20g, IT IS PATENT AND INTACT. Pt HAS R FEMORAL HD CATH. ALL NEEDS MET, SAFETY MEASURES ARE IN PLACE: BED IS LOCKED AND IN LOWEST POSITION, BEDSIDE TABLE AND CALL LIGHT WITHIN REACH. WILL ENDORSE TO ONCOMING SHIFT
[2021-05-16 20:01] VITALS: BP 128/71
[2021-05-16 21:09] LABS: BASOPHILS % (AUTO) 0.8 % (0.0-2.0); HEMATOCRIT 21 % (33-45); LYMPHOCYTES # (AUTO) 0.2 K/uL (0.8-4.8); LYMPHOCYTES % (AUTO) 7.8 % (20.0-44.0); MEAN CORPUSCULAR HGB CONC 33 g/dl (31.0-36.0); MEAN CORPUSCULAR VOLUME 99 fL (82-100); MONOCYTES # (AUTO) 0.5 K/uL (0.1-1.30); MONOCYTES % (AUTO) 15.4 % (2.0-12.0); NEUTROPHILS # (AUTO) 2.1 K/uL (1.8-8.9); PLATELET COUNT (AUTO) 136 K/uL (150-450); RED BLOOD CELL COUNT(AUTO) 2.13 MIL/uL (4.0-5.2); WHITE BLOOD COUNT (AUTO) 3.2 K/uL (4.3-11.0)
[2021-05-16 21:22] LABS: HEMOGLOBIN 6.9 g/dL (11.5-14.8)
[2021-05-16 21:27] LABS: ALBUMIN 3.7 g/dL (3.4-5.0); BILIRUBIN,TOTAL 0.5 mg/dL (0.2-1.0); CALCIUM, SERUM 8.2 mg/dL (8.5-10.1); MAGNESIUM 2.1 mg/dL (1.8-2.4); PHOSPHORUS 3.6 mg/dL (2.5-4.9); POTASSIUM 4.4 mmol/L (3.5-5.1); TOTAL PROTEIN, SERUM 7.9 g/dL (6.4-8.2)
[2021-05-16 21:28] LABS: EOSINOPHILS % (MANUAL) 10 % (0-4); LYMPHOCYTES % (MANUAL) 10 % (16-48); MONOCYTES % (MANUAL) 15 % (0-11.0); NEUTROPHILS % (MANUAL) 65 (42-76)
--- NOTE | 2021-05-16 22:47 | NUR ---
WIRE WALKER NOTES CALLED DR KADY MD MADE AWARE ABOUT H/H. WITH NEW ORDERS TO GIVE 1 UNIT WITH HD CHEO. ORDERS NOTED AND CARRIED OUT. WILL CONTINUE TO MONITOR.
[2021-05-17] VITALS: BP 134/71
[2021-05-17] MEDS: HYDROMORPHONE 1 MG/1 ML DISP.SYRIN IV PRN ×4 (03:12→21:02)
[2021-05-17 03:56] VITALS: BP 150/89
--- NOTE | 2021-05-17 06:00 | NUR ---
FARMER AND GRAZIER NOTES PT REFUSED TO HAVE BLOOD DRAWN AT THIS TIME. PT WANTS IT TO BE DRAWN WITH HD. EXPLAINED TO PT IMPORTANCE OF LABS IN HER POC BUT PT STILL REFUSED. WILL CONTINUE TO MONITOR.
--- NOTE | 2021-05-17 06:49 | NUR ---
ELECTRICAL APPLIANCE MECHANIC NOTES AWAKE & RESPONSIVE. NOT IN ANY DISTRESS. NO SOB NOTED. DENIES ANY PAIN OR DISCOMFORT AT THIS TIME. ON TELE SR @ 80 WITH IV-HL PATENT & INTACT. CALL LIGHT WITHIN REACH. BED IN LOWEST POSITION. SR UP X 2 FOR SAFETY. WILL ENDORSE TO NEXT SHIFT.
[2021-05-17 08:00] VITALS: BP 163/90
--- NOTE | 2021-05-17 08:17 | NUR ---
SMOG TECHNICIAN OPENING NOTES RECEIVED Pt AWAKE IN BED. Pt IS A/O X4. Pt HAS NONLABORED BREATHING AND IS BREATHING EVENLY WHILE ON ROOM AIR. NO C/O PAIN OR SIGNS OF DISTRESS NOTED. PATIENT HAS IV ACCESS ON L FOREARM 20g. IV IS PATENT AND INTACT. PATIENT HAS R FEMORAL HD CATH. SAFETY MEASURES ARE IN PLACE, BED IS LOCKED AND IN LOWEST POSITION, BEDSIDE TABLE AND CALL LIGHT WITHIN REACH. WILL CONTINUE TO MONITOR THROUGHOUT THE SHIFT
[2021-05-17] MEDS: SEVELAMER CARBONATE 800 MG TABLET PO SCH ×3 (08:34→17:45)
[2021-05-17] MEDS: CARVEDILOL 12.5 MG TABLET PO SCH ×2 (08:34→16:18)
[2021-05-17] MEDS: CALCIUM ACETATE 667 MG CAP/TAB PO SCH ×3 (08:34→17:45)
[2021-05-17] MEDS: hydrALAZINE HCL 50 MG TABLET PO SCH ×2 (08:35→16:19)
[2021-05-17] MEDS: NIFEdipine XL (30MG) 30 MG TAB PO SCH (08:36)
[2021-05-17] MEDS: FUROSEMIDE 40 MG TABLET PO SCH ×2 (08:36→16:18)
[2021-05-17] MEDS: DOXAZOSIN MESYLATE (4 MG) 4 MG TABLET PO SCH (08:36)
[2021-05-17] MEDS: QUETIAPINE FUMARATE 100 MG TABLET PO SCH ×2 (08:36→16:19)
[2021-05-17] MEDS: MONTELUKAST SODIUM (10MG) 10 MG TABLET PO SCH (08:36)
[2021-05-17] MEDS: TOPIRAMATE 100 MG TABLET PO SCH ×2 (08:36→16:18)
[2021-05-17] MEDS: ASPIRIN EC 81 MG TABLET.DR PO SCH (08:36)
[2021-05-17] MEDS: LEVOTHYROXINE SODIUM 50 MCG TABLET PO SCH (08:37)
[2021-05-17] MEDS: APIXABAN 2.5 MG TABLET PO SCH ×2 (08:42→16:20)
[2021-05-17 09:28] LABS: BASOPHILS # (AUTO) 0.1 K/uL (0.0-0.2); BASOPHILS % (AUTO) 3.1 % (0.0-2.0); HEMATOCRIT 21 % (33-45); HEMOGLOBIN 7.1 g/dL (11.5-14.8); LYMPHOCYTES # (AUTO) 0.4 K/uL (0.8-4.8); LYMPHOCYTES % (AUTO) 9.9 % (20.0-44.0); MEAN CORPUSCULAR HGB CONC 33 g/dl (31.0-36.0); MEAN CORPUSCULAR VOLUME 98 fL (82-100); MONOCYTES # (AUTO) 0.6 K/uL (0.1-1.30); NEUTROPHILS # (AUTO) 2.4 K/uL (1.8-8.9); PLATELET COUNT (AUTO) 152 K/uL (150-450); RED BLOOD CELL COUNT(AUTO) 2.15 MIL/uL (4.0-5.2); WHITE BLOOD COUNT (AUTO) 3.8 K/uL (4.3-11.0)
[2021-05-17 10:06] LABS: CALCIUM, SERUM 8.2 mg/dL (8.5-10.1); MAGNESIUM 2.2 mg/dL (1.8-2.4); PHOSPHORUS 4.2 mg/dL (2.5-4.9); POTASSIUM 4.5 mmol/L (3.5-5.1)
[2021-05-17 10:48] LABS: CREATININE 8.9 mg/dL (0.6-1.3)
[2021-05-17 12:00] VITALS: BP 153/94
--- NOTE | 2021-05-17 12:44 | NUR ---
TELE/RN NOTES- NO BLOOD AVAILABLE LABS CALLED AND NOTIFIED RN THAT NO BLOOD AVAILABLE FOR THE PATIENT. LABS WILL ORDER BLOOD FOR HER AND WILL NOTIFY RN IF BLOOD IS READY FOR DRAFTING ENGINEER. NOTIFIED NIGHAT (HEMODIALYSIS NURSE), PER NIGHAT, THEY WILL DO HEMODIALYSIS NOW AND RN CAN TAKE CARE OF BLOOD TRANSFUSION LATER.
--- NOTE | 2021-05-17 13:23 | NUR ---
TELE/RN NOTES- BLOOD TRANSFUSION NOTIFIED DR. GOSS THAT LABS SAID BLOOD IS NOT AVAILABLE RIGHT NOW, HEMODIALYSIS ALREADY STARTED. AND HGB LEVEL RESULT FOR THIS MORNING IS UP TO 7.1. PER DR. SAM GOSS, INFUSE 1 PACK RBC TOMORROW 12/ WITH HEMODIALYSIS. AND HGB GOAL IS 8. NOTIFIED LAB THAT BLOOD WILL BE NEEDED TOMORROW. WILL ENDORSE TO THE NEXT SHIFT.
[2021-05-17 16:00] VITALS: BP 130/73
--- NOTE | 2021-05-17 18:50 | NUR ---
CIPHER EXPERT CLOSING NOTES Pt IS AWAKE IN BED AND IS A/O X4. PATIENT IS BREATHING EVENLY AND UNLABORED ON ROOM AIR. NO SIGNS OF DISTRESS NOTED. DENIES PAIN OR DISCOMFORT AT THIS TIME. Pt HAS IV ACCESS ON L FOREARM 20g, IT IS PATENT AND INTACT. Pt HAS R FEMORAL HD CATH. ALL NEEDS MET AT THIS TIME, SAFETY MEASURES ARE IN PLACE: BED IS LOCKED AND IN LOWEST POSITION, BEDSIDE TABLE AND CALL LIGHT WITHIN REACH. WILL ENDORSE TO ONCOMING SHIFT
--- NOTE | 2021-05-17 19:30 | NUR ---
TELE OPENING NOTES PATIENT WAS SEEN SLEEPING IN BED. PATIENT'S A/O X4. PATIENT STABLE ON ON ROOM AIR. PATIENT'S CONNECTED TO A TELE MONITOR SHOWING NO CARDIAC DISTRESS AT THIS TIME. IV ACCESS NOTED IN L FOREARM #20, WHICH IS INTACT, PATENT, AND FLUSHING WELL. PATIENT HAS R FEMORAL HD CATH. PATIENT'S IN NO ACUTE DISTRESS AT THIS TIME. SAFETY MEASURES ARE IN PLACE: BED LOCKED, SIDE RAILS UPX2, AND CALL LIGHT WITHIN REACH OF THE PATIENT. WILL CONTINUE TO MONITOR THE PATIENT.
[2021-05-17 20:00] VITALS: BP 127/65
--- NOTE | 2021-05-17 21:02 | NUR ---
BAIT TIER NOTES PATIENT C/O 01/22 PAIN. 1 MG OF DILAUDID IV WAS GIVEN. WILL REASSESS THE PAIN AT 2131.
[2021-05-18] VITALS (7 sets, daily range): BP systolic 139–175; BP diastolic 72–105
[2021-05-18] MEDS: HYDROMORPHONE 1 MG/1 ML DISP.SYRIN IV PRN ×6 (00:06→23:50)
--- NOTE | 2021-05-18 00:06 | NUR ---
MERCURY CRACKING TESTER NOTES PATIENT C/O 01/22 PAIN. 1 MG OF DILAUDID IV WAS GIVEN. WILL REASSESS THE PAIN AT 0036.
--- NOTE | 2021-05-18 04:04 | NUR ---
FIELD UNDERWRITER NOTES PATIENT C/O OF 10/10 PAIN. PATIENT WAS GIVEN 1MG OF DILAUDID IV AT THIS TIME. WILL REASSESS THE PAIN AT 0434.
--- NOTE | 2021-05-18 07:30 | NUR ---
TELE OPENING NOTES PATIENT WAS SEEN AWAKE IN BED RESTING. PATIENT'S A/O X4. PATIENT STABLE ON ON ROOM AIR. PATIENT'S CONNECTED TO A TELE MONITOR SHOWING NO CARDIAC DISTRESS AT THIS TIME. IV ACCESS NOTED IN L FOREARM #20, WHICH IS INTACT, PATENT, AND FLUSHING WELL. PATIENT HAS R FEMORAL HD CATH. PATIENT'S IN NO ACUTE DISTRESS AT THIS TIME. SAFETY MEASURES ARE IN PLACE: BED LOCKED, SIDE RAILS UPX2, AND CALL LIGHT WITHIN REACH OF THE PATIENT. ENDORSED CARE TO THE DAY SHIFT NURSE. Addendum: 05/18/21 at 0759 by LORA MCNALLY RN DISREGARD THIS NOTE
--- NOTE | 2021-05-18 07:35 | NUR ---
RN NOTES RECEIVED PT ON BED, AWAKE, VERBALLY RESPONSIVE, NO SIGNS OF ACUTE DISTRESS. ON ROOM AIR, NO SOB NOTED, BREATHING EVEN AND UNLABORED. NO C/O PAIN AT THIS TIME. ON KNOCKDOWN MAN WITH CURRENT READING OF SR, HR @ 75. IV SL ON LFA INTACT AND PATENT, WITH RIGHT FEMORAL HD CATHETER WITH DRESSING C/D/I. SAFETY MEASURES INPLACE, BED LOCKED AND IN LOWEST POSITION, SR UP X2, CALL LIGHT PLACED WITHIN EASY REACH. WILL CONTINUE TO MONITOR.
[2021-05-18] MEDS: SEVELAMER CARBONATE 800 MG TABLET PO SCH ×3 (07:59→17:10)
[2021-05-18] MEDS: CALCIUM ACETATE 667 MG CAP/TAB PO SCH ×3 (07:59→17:10)
[2021-05-18] MEDS: LEVOTHYROXINE SODIUM 50 MCG TABLET PO SCH (07:59)
--- NOTE | 2021-05-18 08:06 | NUR ---
RN NOTES DILAUDID 1 MG IVP GIVEN FOR C/O 10/10 GENERALIZED PAIN. WILL MONITOR FOR EFFECTIVENESS.
[2021-05-18] MEDS: APIXABAN 2.5 MG TABLET PO SCH ×2 (09:00→16:41)
[2021-05-18 09:02] LABS: BASOPHILS % (AUTO) 0.4 % (0.0-2.0); HEMATOCRIT 22 % (33-45); HEMOGLOBIN 7.2 g/dL (11.5-14.8); LYMPHOCYTES # (AUTO) 0.4 K/uL (0.8-4.8); LYMPHOCYTES % (AUTO) 11.1 % (20.0-44.0); MEAN CORPUSCULAR HGB CONC 33 g/dl (31.0-36.0); MEAN CORPUSCULAR VOLUME 99 fL (82-100); MONOCYTES # (AUTO) 0.5 K/uL (0.1-1.30); MONOCYTES % (AUTO) 13.7 % (2.0-12.0); NEUTROPHILS # (AUTO) 2.5 K/uL (1.8-8.9); NEUTROPHILS % (AUTO) 64.8 % (43.0-81.0); PLATELET COUNT (AUTO) 169 K/uL (150-450); RED BLOOD CELL COUNT(AUTO) 2.21 MIL/uL (4.0-5.2); WHITE BLOOD COUNT (AUTO) 3.8 K/uL (4.3-11.0)
[2021-05-18 09:13] LABS: CALCIUM, SERUM 8.2 mg/dL (8.5-10.1); MAGNESIUM 2.2 mg/dL (1.8-2.4); PHOSPHORUS 3.9 mg/dL (2.5-4.9)
[2021-05-18 09:21] LABS: CREATININE 7.7 mg/dL (0.6-1.3)
[2021-05-18] MEDS: QUETIAPINE FUMARATE 100 MG TABLET PO SCH ×2 (09:21→16:34)
[2021-05-18] MEDS: TOPIRAMATE 100 MG TABLET PO SCH ×2 (09:21→16:34)
[2021-05-18] MEDS: MONTELUKAST SODIUM (10MG) 10 MG TABLET PO SCH (09:21)
[2021-05-18] MEDS: FUROSEMIDE 40 MG TABLET PO SCH ×2 (09:21→16:34)
[2021-05-18] MEDS: ASPIRIN EC 81 MG TABLET.DR PO SCH (09:22)
[2021-05-18] MEDS: hydrALAZINE HCL 50 MG TABLET PO SCH ×2 (09:22→16:36)
[2021-05-18] MEDS: DOXAZOSIN MESYLATE (4 MG) 4 MG TABLET PO SCH (09:22)
[2021-05-18] MEDS: NIFEdipine XL (30MG) 30 MG TAB PO SCH (09:23)
[2021-05-18] MEDS: CARVEDILOL 12.5 MG TABLET PO SCH ×2 (09:23→16:35)
--- NOTE | 2021-05-18 09:24 | NUR ---
RN NOTES ELIQUIS WITHHELD, PT WITH LOW HGB 7.2.
--- NOTE | 2021-05-18 16:41 | NUR ---
RN NOTES ELIQUIS WITHHELD, PT WITH LOW HGB 7.2.
--- NOTE | 2021-05-18 18:51 | NUR ---
PRINT PROJECT MANAGER CLOSING NOTES PATIENT RESTING ON BED, EASILY AROUSED. VERBALLY RESPONSIVE, NO SIGNS OF ACUTE DISTRESS NOTED. REMAINS ON ROOM AIR, NO SOB, BREATHING EVEN AND UNLABORED. NO S/SX OF PAIN NOTED AT THIS TIME. ON LEASE PURCHASE DRIVER WITH CURRENT READING OF SR, HR @ 79. IV SL ON LFA INTACT AND PATENT, WITH RIGHT FEMORAL HD CATHETER WITH DRESSING C/D/I. SAFETY MEASURES IN PLACE, BED LOCKED AND IN LOWEST POSITION, SR UP X2, CALL LIGHT PLACED WITHIN EASY REACH. WILL ENDORSE TO NEXT SHIFT.
--- NOTE | 2021-05-18 19:45 | NUR ---
MEDICAL COORDINATOR PESTICIDE USE OPENING NOTE RECEIVED PATIENT IN BED IN HIGH FOWLERS, EYES CLOSED EASY TO AROUSE. A/OX4. NO S/S OF APPARENT DISTRESS ON ROOM AIR. NO C/O PAIN. TELE MONITOR READING SR 79. NO FLUIDS RUNNING AT THIS TIME. SAFETY IN PLACE. WILL CONTINUE TO MONITOR.
--- NOTE | 2021-05-18 21:47 | NUR ---
NUTRITION DIRECTOR NOTE CALLED NIGHAT HI HD RN AT THIS TIME TO CONFIRM IF HE IS ABLE TO COME TONIGHT FOR PATIENT'S SCHEDULED DIALYSIS. PER NIGHAT HE WILL COME AND HE IS STILL IN [facility] AT THE MOMENT. PATIENT SCHEDULED FOR HD WITH BLOOD TRANSFUSION.
--- NOTE | 2021-05-18 23:45 | NUR ---
DEMOLITION HAMMER OPERATOR NOTE PACKED OF RBC SCANNED AT THIS TIME. HD NURSE AT THE BEDSIDE TO DO THE HEMODIALYSIS AND BLOOD TRANSFUSION.
--- NOTE | 2021-05-18 23:54 | NUR ---
COPPER MINER BLASTING NOTE PATIENT C/O SEVERE PAIN IN THE LEGS. PATIENT REFUSING TO START HD IF NOT GIVEN PAIN MEDICATION. DILAUDID GIVEN AT THIS TIME.
[2021-05-19] VITALS (10 sets, daily range): BP systolic 106–176; BP diastolic 54–103
--- NOTE | 2021-05-19 00:32 | NUR ---
REGIONAL MAINTENANCE MANAGER NOTE BLOOD TRANSFUSION ENDED AT THIS TIME. V/S FOLLOW: BP- 176/103, HR- 81, TEMP- 96.1, RR- 20. PATIENT IS STILL ONGOING HEMODIALYSIS, WILL RECHECKED V/S AFTER HD AND GIVE MEDICATION NEEDED.
--- NOTE | 2021-05-19 00:51 | NUR ---
IRRIGATIONIST DESIGNER NOTE PATIENT KEEPS TAKING OF LEADS FOR TELE MONITOR. PER PATIENT IT MAKES HER ITCH. REFUSING THE TELE MONITOR RIGHT NOW. PATIENT A/OX4 AND MAKES OWN DECISION. TELE MONITOR ON STANDBY.
--- NOTE | 2021-05-19 02:47 | NUR ---
JANITORIAL TECH NOTE HD FINISHED AT THIS TIME. 2L OUT.
[2021-05-19] MEDS: HYDROMORPHONE 1 MG/1 ML DISP.SYRIN IV PRN ×3 (03:31→17:12)
[2021-05-19] MEDS: hydrALAZINE HCL IV 20 MG VIAL IV PRN (03:41)
--- NOTE | 2021-05-19 03:41 | NUR ---
WEB OPERATIONS LEAD NOTE RECHECKED PATIENT'S BP AFTER HD. STILL HIGH AT 175/101. HR- 84. LABETALOL IV NOT AVAILABLE HENCE GIVEN HYDRALAZINE 10 MG. WILL REASSESS AND CONT. TO MONITOR.
--- NOTE | 2021-05-19 04:00 | NUR ---
WAREHOUSE DRIVER NOTE PATIENT BP WENT DOWN TO 147/83 WITH HR OF 87 AFTER 1 HOUR OF APRESOLINE 10 MG. WILL CONTINUE TO MONITOR PATIENT.
--- NOTE | 2021-05-19 04:34 | NUR ---
CANADIAN BACON TIER NOTE PATIENT IV LINE PULLED OUT. NO IV ACCESS AT THE MOMENT. MULTIPLE IV ATTEMPTS, EVEN NURSING SET UP PERSON ATTEMPTED TO PUT ONE IN, STILL UNSUCCESSFUL. PER VALENTINE, NURSING SET UP PERSON, RECOMMEND PORTACATH SINCE PATIENT HAS BEEN IN AND OUT OF THE HOSPITAL AND MULTIPLE MIDLINE INSERTION ALREADY. WILL ENDORSE TO MORNING SHIFT RN. PATIENT PAIN HAS BEEN MANAGED.
--- NOTE | 2021-05-19 06:45 | NUR ---
STEM SIZER NOTE PATIENT IN BED WATCHING TELEVISION. A/OX4. AMBULATORY WITH STEADY GAIT. NO S/S OF APPARENT DISTRESS WITH HOB IN HIGH FOWLERS. PAIN MANAGED WITH MEDICATIONS. NO IV ACCESS AT THIS TIME. ALL SCHED MEDS ADMINISTERED. ALL NEEDS ATTENDED. PATIENT REFUSING TELE MONITOR AND IS ON STANDBY. R. FEMORAL HD CATH IN PLACE -- 2L OUT DURING DIALYSIS. RECEIVED 1 PRBC. NO SIGNIFICANT CHANGE SINCE ENDORSEMENT. WILL ENDORSE TO MORNING SHIFT RN FOR CONTINUITY OF CARE.
[2021-05-19] MEDS: APIXABAN 2.5 MG TABLET PO SCH ×2 (09:00→17:11)
[2021-05-19] MEDS: QUETIAPINE FUMARATE 100 MG TABLET PO SCH ×2 (09:33→17:09)
[2021-05-19] MEDS: MONTELUKAST SODIUM (10MG) 10 MG TABLET PO SCH (09:34)
[2021-05-19] MEDS: DOXAZOSIN MESYLATE (4 MG) 4 MG TABLET PO SCH (09:34)
[2021-05-19] MEDS: SEVELAMER CARBONATE 800 MG TABLET PO SCH ×3 (09:34→17:09)
[2021-05-19] MEDS: ASPIRIN EC 81 MG TABLET.DR PO SCH (09:34)
[2021-05-19] MEDS: LEVOTHYROXINE SODIUM 50 MCG TABLET PO SCH (09:35)
[2021-05-19] MEDS: CARVEDILOL 12.5 MG TABLET PO SCH ×2 (09:35→17:09)
[2021-05-19] MEDS: FUROSEMIDE 40 MG TABLET PO SCH ×2 (09:35→17:09)
[2021-05-19] MEDS: NIFEdipine XL (30MG) 30 MG TAB PO SCH (09:35)
[2021-05-19] MEDS: hydrALAZINE HCL 50 MG TABLET PO SCH ×2 (09:35→17:08)
[2021-05-19] MEDS: TOPIRAMATE 100 MG TABLET PO SCH ×2 (09:36→17:09)
[2021-05-19] MEDS: CALCIUM ACETATE 667 MG CAP/TAB PO SCH ×3 (09:36→17:09)
[2021-05-19] MEDS ORDERED: HYDROMORPHONE 1 MG/1 ML DISP.SYRIN IV PRN (13:30)
[2021-05-19] MEDS: TRAMADOL HCL 50 MG TABLET PO SCH (17:09)
--- NOTE | 2021-05-19 19:57 | NUR ---
MS RN OPENING NOTE RECEIVED PATIENT IN BED WITH EYES CLOSED. EASY TO AROUSE. A/OX4. NOT EXHIBITING S/S OF APPARENT DISTRESS. NO C/O PAIN AT THE MOMENT. NO NEEDS AT THIS TIME. NO FLUIDS AT THIS TIME. SAFETY IN PLACE. WILL CONTINUE TO MONITOR. Addendum: 05/19/21 at 1957 by RAMIRO ULRICH RN TELE* RN OPENING NOTE RECEIVED PATIENT IN BED WITH EYES CLOSED. EASY TO AROUSE. A/OX4. NOT EXHIBITING S/S OF APPARENT DISTRESS. NO C/O PAIN AT THE MOMENT. NO NEEDS AT THIS TIME. NO FLUIDS AT THIS TIME. PATIENT TELE MONITOR ON STANDBY-- PATIENT REFUSING. SAFETY IN PLACE. WILL CONTINUE TO MONITOR.
[2021-05-20] VITALS: BP 140/66
[2021-05-20] MEDS: HYDROMORPHONE 1 MG/1 ML DISP.SYRIN IV PRN ×3 (00:19→12:35)
[2021-05-20] MEDS: TRAMADOL HCL 50 MG TABLET PO SCH ×2 (02:10→12:41)
[2021-05-20 04:00] VITALS: BP 153/68
--- NOTE | 2021-05-20 06:27 | NUR ---
COASTAL TUG MATE NOTE PATIENT IN BED WATCHING TELEVISION. A/OX4. AMBULATORY WITH STEADY GAIT. NO S/S OF APPARENT DISTRESS WITH HOB IN HIGH FOWLERS. PAIN MANAGED WITH MEDICATIONS. NO FLUIDS RUNNING AT THIS TIME. ALL NEEDS ATTENDED. PATIENT REFUSING TELE MONITOR AND IS ON STANDBY. R. REFUSING SKIN ASSESSMENT. NO SIGNIFICANT CHANGE SINCE ENDORSEMENT. WILL ENDORSE TO MORNING SHIFT RN FOR CONTINUITY OF CARE.
--- NOTE | 2021-05-20 07:33 | NUR ---
FISCAL SERVICES MANAGER OPENING NOTES RECEIVED PATIENT SEATED IN BED, AWAKE, A/O X 4. PT ABLE TO MAKE NEEDS KNOWN. PATIENT ON ROOM AIR; BREATHING EVEN AND UNLABORED, NO SOB NOTED. REFUSES TELE MONITORING. NO COMPLAIN OF PAIN AT THIS TIME. PATIENT AMBULATORY WITH BRP. IV ACCESS ON L WRIST G #22; SL. R FEMORAL HD CATH PRESENT AND INTACT. SAFETY MEASURES IN PLACE: BED LOCKED IN LOW POSITION, SIDE RAILS UP X 2, CALL LIGHT AND TABLE WITHIN REACH. WILL CONTINUE TO MONITOR PATIENT
[2021-05-20 07:42] LABS: BASOPHILS % (AUTO) 1.1 % (0.0-2.0); EOSINOPHILS % (AUTO) 9.5 % (0.0-6.0); HEMATOCRIT 26 % (33-45); HEMOGLOBIN 8.6 g/dL (11.5-14.8); LYMPHOCYTES # (AUTO) 0.5 K/uL (0.8-4.8); LYMPHOCYTES % (AUTO) 10.6 % (20.0-44.0); MEAN CORPUSCULAR HGB CONC 34 g/dl (31.0-36.0); MEAN CORPUSCULAR VOLUME 97 fL (82-100); MONOCYTES # (AUTO) 0.6 K/uL (0.1-1.30); MONOCYTES % (AUTO) 13.8 % (2.0-12.0); NEUTROPHILS # (AUTO) 2.8 K/uL (1.8-8.9); PLATELET COUNT (AUTO) 158 K/uL (150-450); RED BLOOD CELL COUNT(AUTO) 2.63 MIL/uL (4.0-5.2); WHITE BLOOD COUNT (AUTO) 4.3 K/uL (4.3-11.0)
[2021-05-20 08:16] LABS: MAGNESIUM 2.5 mg/dL (1.8-2.4); PHOSPHORUS 4.8 mg/dL (2.5-4.9); POTASSIUM 5.1 mmol/L (3.5-5.1)
[2021-05-20] MEDS: QUETIAPINE FUMARATE 100 MG TABLET PO SCH (08:21)
[2021-05-20] MEDS: TOPIRAMATE 100 MG TABLET PO SCH (08:21)
[2021-05-20] MEDS: SEVELAMER CARBONATE 800 MG TABLET PO SCH ×2 (08:21→12:15)
[2021-05-20] MEDS: CALCIUM ACETATE 667 MG CAP/TAB PO SCH ×2 (08:21→12:15)
[2021-05-20] MEDS: MONTELUKAST SODIUM (10MG) 10 MG TABLET PO SCH (08:21)
[2021-05-20] MEDS: FUROSEMIDE 40 MG TABLET PO SCH (08:21)
[2021-05-20] MEDS: ASPIRIN EC 81 MG TABLET.DR PO SCH (08:21)
[2021-05-20] MEDS: LEVOTHYROXINE SODIUM 50 MCG TABLET PO SCH (08:22)
[2021-05-20] MEDS: APIXABAN 2.5 MG TABLET PO SCH ×2 (08:23→08:37)
[2021-05-20] MEDS: DOXAZOSIN MESYLATE (4 MG) 4 MG TABLET PO SCH (08:23)
[2021-05-20] MEDS: CARVEDILOL 12.5 MG TABLET PO SCH (08:24)
[2021-05-20] MEDS: hydrALAZINE HCL 50 MG TABLET PO SCH (08:24)
[2021-05-20 08:36] VITALS: BP 173/98
[2021-05-20 10:34] VITALS: BP 146/82
[2021-05-20] MEDS: NIFEdipine XL (30MG) 30 MG TAB PO SCH (10:34)
--- NOTE | 2021-05-20 12:40 | NUR ---
MS RN NOTES PATIENT COMPLAINING OF BACK PAIN 8-9 OUT OF 10; REQUESTING PRN MEDICATION. PRN DILAUDID ADMINISTERED. WILL REASSESS.
[2021-05-20] MEDS ORDERED: TRAM50TA2 PO (13:18)
--- NOTE | 2021-05-20 16:00 | NUR ---
MS RN NOTES PATIENT DECIDED TO LEAVE AMA AND NOT WAIT FOR DIALYSIS TODAY. PATIENT STATED IT TAKES TOO LONG AND SHE JUST WANTS TO LEAVE HOME. PATIENT STATED SHE WILL FOLLOW HER NEW DIALYSIS SCHEDULE. PATIENT WAS ENCOURAGED TO STAY AND GO AFTER DIALYSIS BUT SHE KEPT REFUSEING. PATIENT SIGNED AMA. CHARGE NURSE AND MD NOTIFIED.
== END 2021-05-20 16:00 | disposition left against medical advice (07) | DRG 194 ==
LOC: ER 22:47 → TELE 05-15 01:24 → MED 05-20 09:59
PROVIDERS: ADMIT Internal Medicine; ATTEND Nurse Practitioner Family
PROC: 5A1D70Z Performance of Urinary Filtration, Intermittent, Less than 6 Hours Per Day (ICD-10-PCS; principal; 2021-05-15)
PROC: 30233N1 Transfusion of Nonautologous Red Blood Cells into Peripheral Vein, Percutaneous Approach (ICD-10-PCS; 2021-05-18)
DX: I13.2 Hypertensive heart and chronic kidney disease with heart failure and with stage 5 chronic kidney disease, or end stage renal disease (principal); N18.6 End stage renal disease; D63.1 Anemia in chronic kidney disease; F25.9 Schizoaffective disorder, unspecified; E83.9 Disorder of mineral metabolism, unspecified; T82.898A Other specified complication of vascular prosthetic devices, implants and grafts, initial encounter; I50.23 Acute on chronic systolic (congestive) heart failure; E03.9 Hypothyroidism, unspecified; E87.5 Hyperkalemia; F32.A Depression, unspecified; Z86.711 Personal history of pulmonary embolism; Z86.718 Personal history of other venous thrombosis and embolism; Z99.2 Dependence on renal dialysis; Z87.891 Personal history of nicotine dependence; Z86.73 Personal history of transient ischemic attack (TIA), and cerebral infarction without residual deficits; Z91.19 Patient's noncompliance with other medical treatment and regimen; Z79.01 Long term (current) use of anticoagulants; I16.0 Hypertensive urgency; R60.9 Edema, unspecified; Y84.8 Other medical procedures as the cause of abnormal reaction of the patient, or of later complication, without mention of misadventure at the time of the procedure; Y92.89 Other specified places as the place of occurrence of the external cause; I48.91 Unspecified atrial fibrillation; J45.909 Unspecified asthma, uncomplicated; Z20.822 Contact with and (suspected) exposure to COVID-19
CPT/HCPCS: 36415; 71045-TC; 80048-TC; 80053-TC; 83605-TC; 83735-TC; 84100-TC; 85025-TC; 86706; 86850-TC; 87081-TC; 87340; 90935-TC; A6403; G0378; J0360; J1170; J1815; J2270; J7030; J7050; P9016

== ENCOUNTER 2021-05-25 21:22 | Inpatient (IN) | payer MEDICAID ==
[~2021-05-25] VITALS: Ht 165.1 cm; Wt 85.3 kg
[~2021-05-25 21:22] MED LIST changes: +TRAM50TA2 PO
--- NOTE | 2021-05-25 22:17 | NUR ---
BIBS FOR C/O CP, RIGHT SIDED ABD PAIN AND R FEMORAL HD CATH DISCOMFROT LAST HD X6 DAYS AGO. PT BREATHING EVEN AND UNALBORED ALL V/S STABLE HOOKED UP TO MONITOR AND PULSE OX.
[2021-05-25 23:08] LABS: BASOPHILS % (AUTO) 0.5 % (0.0-2.0); EOSINOPHILS % (AUTO) 4.8 % (0.0-6.0); HEMATOCRIT 26 % (33-45); HEMOGLOBIN 8.5 g/dL (11.5-14.8); LYMPHOCYTES # (AUTO) 0.4 K/uL (0.8-4.8); LYMPHOCYTES % (AUTO) 7.6 % (20.0-44.0); MEAN CORPUSCULAR HGB CONC 33 g/dl (31.0-36.0); MEAN CORPUSCULAR VOLUME 98 fL (82-100); MONOCYTES # (AUTO) 0.6 K/uL (0.1-1.30); MONOCYTES % (AUTO) 11.5 % (2.0-12.0); NEUTROPHILS % (AUTO) 75.6 % (43.0-81.0); PLATELET COUNT (AUTO) 116 K/uL (150-450); RED BLOOD CELL COUNT(AUTO) 2.59 MIL/uL (4.0-5.2); WHITE BLOOD COUNT (AUTO) 5.3 K/uL (4.3-11.0)
[2021-05-25 23:58] LABS: CALCIUM, SERUM 8.7 mg/dL (8.5-10.1)
[2021-05-26] VITALS (64 sets, daily range): BP systolic 93–217; BP diastolic 38–146
[2021-05-26 00:09] LABS: ALBUMIN 4.5 g/dL (3.4-5.0); BILIRUBIN,DIRECT 0.2 mg/dL (0.0-0.2); BILIRUBIN,TOTAL 0.5 mg/dL (0.2-1.0); TOTAL PROTEIN, SERUM 9.2 g/dL (6.4-8.2)
[2021-05-26 00:10] LABS: POTASSIUM 7.5 mmol/L (3.5-5.1)
[2021-05-26 00:11] LABS: CREATININE 12.9 mg/dL (0.6-1.3)
[2021-05-26] MEDS ORDERED: Calcium Gluconate 0.465 MEQ/ML VIAL IV ONE (00:27)
[2021-05-26] MEDS ORDERED: DEXTROSE 50%-WATER 50 ML DISP.SYRIN IV ONE (00:30)
[2021-05-26] MEDS ORDERED: SODIUM POLYSTYRENE SULFONATE 15 G/60 ML BOTTLE PO ONE (00:30)
[2021-05-26] MEDS ORDERED: SODIUM BICARBONATE SYR 50 MEQ/50 ML DISP.SYRIN IV ONE (00:30)
[2021-05-26] MEDS ORDERED: Calcium Gluconate 1GM/10ML 4.65 MEQ in IV D5W 50 ML IV ONE (00:30)
[2021-05-26] MEDS ORDERED: INSULIN REGULAR, HUMAN 100 UNIT/ML 10 ML VIAL IV ONE (00:30)
[2021-05-26] MEDS ORDERED: ALBUTEROL FS 2.5 MG/3 ML VIAL.NEB NEB ONE (00:30)
[2021-05-26] MEDS ORDERED: INSULIN REGULAR, HUMAN 100 UNIT/ML 10 ML VIAL ONE (00:31)
[2021-05-26] MEDS ORDERED: DEXTROSE 50%-WATER 50 ML DISP.SYRIN ONE ×2 (00:31→06:13)
[2021-05-26] MEDS ORDERED: SODIUM BICARBONATE SYR 50 MEQ/50 ML DISP.SYRIN ONE (00:32)
--- NOTE | 2021-05-26 00:39 | NUR ---
COVID SWAB COLLECTED AND SENT TO LAB
[2021-05-26] MEDS ORDERED: ALBUTEROL FS 2.5 MG/3 ML VIAL.NEB ONE (00:44)
--- NOTE | 2021-05-26 00:55 | NUR ---
ICU 256
[2021-05-26] MEDS ORDERED: MORPHINE SULFATE INJ 2 MG/ML DISP.SYRIN IV ONE (01:00)
[2021-05-26] MEDS ORDERED: MORPHINE SULFATE INJ 4 MG/ML DISP.SYRIN ONE (01:02)
[2021-05-26] MEDS ORDERED: NICARDIPINE HCL 40 MG in IV NS 0.9% 184 ML IV PRN (01:30)
[2021-05-26] MEDS ORDERED: ALBUTEROL SULFATE INH 18 GM HFA.AER.AD IH PRN (01:30)
[2021-05-26] MEDS ORDERED: hydrALAZINE HCL IV 20 MG VIAL IV ONE (01:30)
--- NOTE | 2021-05-26 01:30 | NUR ---
MRSA SWAB COLLECTED AND SENT TO LAB. PATIENT'S BELONGINGS LIST DONE.
--- NOTE | 2021-05-26 02:20 | NUR ---
REPORT GIVEN TO ED
--- NOTE | 2021-05-26 02:40 | NUR ---
PT TRANSPORTED TO ROOM 256 ON AUTOMATIC CASTING MACHINE OPERATOR PER ACLS PROTOCOL WITHOUT INCIDENT. ALL V/S STABLE AT TIME OF TRANSFER.
[2021-05-26] MEDS: HYDROMORPHONE 1 MG/1 ML DISP.SYRIN IV PRN ×4 (02:45→22:57)
--- NOTE | 2021-05-26 02:45 | NUR ---
ICU/MEDICAL DOCTOR NUCLEAR MEDICINE RECIEVED PT FROM ER. PT WAS TRANSFERED TO BED, CALL LIGHT WITHIN REACH. ADMISSION PACKET WAS DONE. BURNISHING MACHINE OPERATOR PHARMACY SALES ASSISTANT CAME TO SEE PT, NEW ORDERS WERE RECIEVED AND NOTED.
--- NOTE | 2021-05-26 03:00 | NUR ---
ICU/WIRE TAPER PT WAS GIVEN DILAUDID BY COREMAKER EXPERIMENTAL NURSE. FOR PAIN LEVEL 10/10 TO GENERALIZED AREA AND ABDOMEN. WILL MONITOR THIS PT AND HER PAIN.
[2021-05-26 03:01] LABS: CALCIUM, SERUM 8.9 mg/dL (8.5-10.1)
--- NOTE | 2021-05-26 03:20 | NUR ---
ICU/NEWSPAPER SUBSCRIPTION SOLICITOR PT IS TO HAVE STAT EMERGENCY HD FOR HIGH POTASSIUM OF 7.5. PT HAD MISSED 6 DAYS WITHOUT HD. ELEVATED BUN, CREAT, AND POTASSIUM.
--- NOTE | 2021-05-26 03:40 | NUR ---
ICU/HEMATOLOGY SUPERVISOR PT IS TO HAVE MIDLINE THIS MORNING, SHE IS A DIFFICULT STICK.
[2021-05-26 03:44] LABS: ABG BASE EXCESS -4.7 mmol/L; ABG OXYGEN SATURATION 96.1 % (92.0-98.5); ABG PCO2 40.6 mmHg (35.0-45.0); ABG PH 7.329 (7.350-7.450); ABG PO2 95.6 mmHg (75.0-100.0); AaDO2 5.5 mmHg; COHb 0.3 % (0.5-1.5); MetHb 0.1 % (0.0-1.5); O2Hb 95.7 % (94.0-97.0); SITE, ABG Right Radial; VENT MODE, BG ROOM AIR
[2021-05-26 03:47] LABS: CREATININE 12.9 mg/dL (0.6-1.3); POTASSIUM 7.5 mmol/L (3.5-5.1)
--- NOTE | 2021-05-26 04:10 | NUR ---
ICU/PROJECT BUILDER ABG WAS DONE THIS WAS A LATE ORDER FROM ER. PT IS CURRENTLY ON ROOM AIR WITH SATURATION AT 98%. THE RESULTS WERE GIVEN TO THE SENIOR ACCOUNTANT CPA HIGINIO, NO NEW ORDERS WERE RECIEVED.
--- NOTE | 2021-05-26 04:55 | NUR ---
ICU/LAND LEASE INFORMATION CLERK POT-7.5 BUN-130 CREAT-12.9 OUT AND OUT CIGAR MAKER HAND HIGINIO MADE AWARE, SAID THAT THIS IS THE SAME LAB RESULTS FROM ER. NO NEW ORDERS RECIEVED.
--- NOTE | 2021-05-26 05:50 | NUR ---
ICU/TRACK GRINDER HD NURSE PLANS TO REMOVE 4 LITERS OF FLUID HOWEVER BLOOD PRESSURE IS ELEVATED STILL, OBTAINED AN PRN ORDER FOR HYDRALAZINE 10MG IVP PRN EVERY 6 HORS FOR SBP GREATER THAN 170. ORDERS WERE RECIEVED AND CARRIED OUT.
[2021-05-26] MEDS ORDERED: hydrALAZINE HCL IV 20 MG VIAL IV PRN (06:30)
--- NOTE | 2021-05-26 06:30 | NUR ---
ICU/SUPERVISOR PROPELLANT CHARGE LOADING SAW THAT THERE WAS A REPEAT OF ACCU CHECK FOR A DEXTROSE WHICH WAS GIVEN IN ER BS 56. AT 0600 THE BLOOD SUGAR IS 39. DEXTROSE WAS GIVEN THEN 15 MINUTES LATER THE BLOOD SUGAR WAS 70. LET THE SWEAT BAND SEWER MD KNOW ABOUT THIS. SAID TO DO ACCU CKECKS EVERY 2 HOURS X2 THEN EVERY 4HRS TILL NORMAL.
--- NOTE | 2021-05-26 07:20 | NUR ---
ICU/ANATOMIC PATHOLOGY ASSISTANT HD NURSE TOOK OFF 4.5 LITERS OF FLUID.
[2021-05-26] MEDS: BLOOD SUGAR DIAGNOSTIC 1 EACH STRIP IN SCH ×5 (07:21→21:30)
[2021-05-26] MEDS ORDERED: SEVELAMER CARBONATE 800 MG TABLET PO SCH (08:00)
[2021-05-26] MEDS: CALCIUM ACETATE 667 MG CAP/TAB PO SCH ×3 (08:06→16:54)
[2021-05-26] MEDS: LEVOTHYROXINE SODIUM 25 MCG TABLET PO SCH (08:06)
[2021-05-26] MEDS: APIXABAN 2.5 MG TABLET PO SCH ×2 (09:15→16:46)
[2021-05-26 09:43] LABS: CALCIUM, SERUM 8.6 mg/dL (8.5-10.1); POTASSIUM 4.6 mmol/L (3.5-5.1)
[2021-05-26] MEDS: MONTELUKAST SODIUM (10MG) 10 MG TABLET PO SCH (10:35)
[2021-05-26] MEDS: FUROSEMIDE 40 MG TABLET PO SCH ×2 (10:36→16:34)
[2021-05-26] MEDS: ASPIRIN EC 81 MG TABLET.DR PO SCH (10:36)
[2021-05-26] MEDS: TOPIRAMATE 100 MG TABLET PO SCH ×2 (10:36→16:34)
[2021-05-26] MEDS: diphenhydrAMINE HCL 50 MG/ML VIAL IV PRN (10:36)
[2021-05-26] MEDS: QUETIAPINE FUMARATE 100 MG TABLET PO SCH ×2 (10:37→16:34)
[2021-05-26] MEDS: DOXAZOSIN MESYLATE (4 MG) 4 MG TABLET PO SCH (10:50)
[2021-05-26] MEDS: NIFEdipine XL (30MG) 30 MG TAB PO SCH (10:50)
[2021-05-26] MEDS: hydrALAZINE HCL 50 MG TABLET PO SCH ×2 (10:51→16:33)
[2021-05-26] MEDS: CARVEDILOL 12.5 MG TABLET PO SCH ×2 (10:51→21:21)
[2021-05-26] MEDS: SEVELAMER CARBONATE 800 MG TABLET PO SCH ×2 (13:34→16:54)
--- NOTE | 2021-05-26 16:13 | NUR ---
RN MIDLINE INSERTED.
--- NOTE | 2021-05-26 19:55 | NUR ---
RN OPENING NOTE PT REC'D IN BED, A/O X4, ON ROOM AIR, NO SOB OR DISTRESS NOTED. ON TELE PT PRESENTS WITH NSR 80S, PT AFEBRILE. PT HAS HX OF TAKING OFF EQUIPMENT, EDUCATED PT ON IMPORTANCE OF MONITORING, PT VERBALIZES UNDERSTANDING AND ALLOWED. 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 PT HAS DRY SKIN. OFFERED SKIN CARE LOTION, PT REFUSED. PT HAS RIGHT FOREARM MIDLINE FLUSHED WITH BLOOD RETURN NOTED, AND FEM HD CATH INTACT. LEFT HAND IV REMOVED PT C/O PAIN. CATHETER INTACT. NO S/S OF BLEEDING NOTED. SAFETY MEASURES IN PLACE. HOB ELEVATED TOLERATED. SIDE RAILS UP X2. BED LOCKED IN LOWEST POSITION, BED ALARM ON. WILL CONT TO MONITOR CLOSELY FOR CHANGE OF CONDITION.
--- NOTE | 2021-05-26 21:03 | NUR ---
RN NOTE JOVANNY PT C/O ITCHING, PER DAY SHIFT RN, JOVANNY PRN ADMINISTERED @7085 UNABLE TO GIVE AT THIS TIME. MEDICATION IS Q6H ICE PACK PT REQUEST GIVEN AT THIS TIME
--- NOTE | 2021-05-26 21:35 | NUR ---
RN NOTE ACCUCHECK BLOOD SUGAR IS 119
--- NOTE | 2021-05-26 22:07 | NUR ---
RN NOTE-ACCU CHECK ORDER NOTIFIED COMPANY PILOT HIGINIO MAY NP REGARDING PT ACCU CHECK ORDERED Q4H UNTIL NORMAL. INFORMED LAST RECORDED BLOOD SUGARS, NEW ORDER FOR ACCU CHECK TO BE ACHS STARTING TOMORROW CARRIED OUT
[2021-05-27] VITALS (23 sets, daily range): BP systolic 95–146; BP diastolic 58–95
[2021-05-27] MEDS: diphenhydrAMINE HCL 50 MG/ML VIAL IV PRN ×4 (01:00→21:13)
[2021-05-27] MEDS: HYDROMORPHONE 1 MG/1 ML DISP.SYRIN IV PRN ×3 (03:30→19:39)
[2021-05-27 04:43] LABS: BASOPHILS % (AUTO) 0.7 % (0.0-2.0); EOSINOPHILS % (AUTO) 6.7 % (0.0-6.0); HEMATOCRIT 21 % (33-45); HEMOGLOBIN 7.1 g/dL (11.5-14.8); LYMPHOCYTES # (AUTO) 0.3 K/uL (0.8-4.8); MEAN CORPUSCULAR HGB CONC 33 g/dl (31.0-36.0); MEAN CORPUSCULAR VOLUME 99 fL (82-100); MONOCYTES # (AUTO) 0.5 K/uL (0.1-1.30); MONOCYTES % (AUTO) 15.4 % (2.0-12.0); NEUTROPHILS % (AUTO) 66.2 % (43.0-81.0); RED BLOOD CELL COUNT(AUTO) 2.16 MIL/uL (4.0-5.2)
[2021-05-27 04:58] LABS: CALCIUM, SERUM 8.1 mg/dL (8.5-10.1); MAGNESIUM 2.3 mg/dL (1.8-2.4)
[2021-05-27 05:22] LABS: CREATININE 9.3 mg/dL (0.6-1.3); POTASSIUM 6.6 mmol/L (3.5-5.1)
[2021-05-27] MEDS ORDERED: SODIUM BICARBONATE SYR 50 MEQ/50 ML DISP.SYRIN IV ONE (07:00)
[2021-05-27] MEDS ORDERED: Calcium Gluconate 1GM/10ML 4.65 MEQ in IV D5W 50 ML IV ONE (07:00)
--- NOTE | 2021-05-27 07:00 | NUR ---
RN NOTE PT TO FOLLOW UP WITH RENAL TEAM TODAY, FOR POTASSIUM OF 6.6 PER CLAIM CLINICIAN OTOLARYNGOLOGY PHYSICIAN, YADIRA, ORDERS FOR 1 AMP CALCLIUM GLUCONATE 1 AMP SODIUM BICARB CARRIED OUT
--- NOTE | 2021-05-27 07:25 | NUR ---
ICU OPENING NOTES RECEIVED PT RESTING IN BED. A/O X4. STABLE ON ROOM AIR. NO SOB OR ANY DISTRESS NOTED. SR ON THE MONITOR. LEFT AV FISTULA NOTED. IV ACCESS ON RIGHT FOREARM MIDLINE INTACT, PATENT AND FLUSHED. R FEM HD CATH NOTED. SAFETY MEASURES IN PLACE. HOB ELEVATED. BED LOCKED AND IN LOWEST POSITION WITH SIDE RAILS UP X2. BED ALARM ON. WILL CONTINUE TO MONITOR.
--- NOTE | 2021-05-27 07:30 | NUR ---
RN NOTE CLOSING NO SIGNIFICANT CHANGES IN PT CONDITION. SAFETY MEASURES IN PLACE. REPORT GIVEN TO DAY SHIFT RN FOR CONTINUATION OF CARE.
--- NOTE | 2021-05-27 07:50 | NUR ---
RN NOTES GAVE REPORT TO [address] FOR FRANSICO.
--- NOTE | 2021-05-27 07:54 | NUR ---
RN NOTE RECEIVED PATIENT FROM YENIFER VALADEZ. PATIENT IS AOX4. ON ROOM AIR WITH NO SIGNS OF LABORED BREATHING. WILL CONTINUE TO MONITOR THROUGHOUT SHIFT.
[2021-05-27] MEDS: LEVOTHYROXINE SODIUM 25 MCG TABLET PO SCH (08:04)
[2021-05-27] MEDS: CARVEDILOL 12.5 MG TABLET PO SCH ×2 (08:05→21:13)
[2021-05-27] MEDS: NIFEdipine XL (30MG) 30 MG TAB PO SCH (08:05)
[2021-05-27] MEDS: MONTELUKAST SODIUM (10MG) 10 MG TABLET PO SCH (08:05)
[2021-05-27] MEDS: DOXAZOSIN MESYLATE (4 MG) 4 MG TABLET PO SCH (08:05)
[2021-05-27] MEDS: CALCIUM ACETATE 667 MG CAP/TAB PO SCH ×4 (08:06→17:26)
[2021-05-27] MEDS: TOPIRAMATE 100 MG TABLET PO SCH ×3 (08:06→17:20)
[2021-05-27] MEDS: QUETIAPINE FUMARATE 100 MG TABLET PO SCH ×3 (08:06→17:21)
[2021-05-27] MEDS: FUROSEMIDE 40 MG TABLET PO SCH ×3 (08:06→17:20)
[2021-05-27] MEDS: SEVELAMER CARBONATE 800 MG TABLET PO SCH ×4 (08:06→17:26)
[2021-05-27] MEDS: ASPIRIN EC 81 MG TABLET.DR PO SCH (08:06)
[2021-05-27] MEDS: hydrALAZINE HCL 50 MG TABLET PO SCH ×3 (08:06→17:21)
--- NOTE | 2021-05-27 08:10 | NUR ---
RN NOTE OKAY TO HOLD ELIQUIS PER DR. MERLOS FOR HGB OF 7.1
[2021-05-27] MEDS: APIXABAN 2.5 MG TABLET PO SCH ×2 (08:11→17:00)
[2021-05-27] MEDS: BLOOD SUGAR DIAGNOSTIC 1 EACH STRIP IN SCH ×4 (08:17→21:13)
[2021-05-27 11:08] LABS: EOSINOPHILS % (MANUAL) 4 % (0-4); LYMPHOCYTES % (MANUAL) 11 % (16-48); MONOCYTES % (MANUAL) 16 % (0-11.0); NEUTROPHILS % (MANUAL) 69 (42-76)
[2021-05-27 14:24] LABS: PLATELET COUNT (AUTO) 88 K/uL (150-450)
--- NOTE | 2021-05-27 18:22 | NUR ---
RN NOTE PT HAD HD WITH 3L REMOVED
--- NOTE | 2021-05-27 18:45 | NUR ---
RN CLOSING NOTE TRANSFERRED PATIENT TO [facility] ROOM 112-1. PATIENT IS RESTING IN BED, NO COMPLAINTS ON SOB, PT IS ON ROOM AIR WITH O2 SAT ABOVE 95%. NEEDS MET DURING SHIFT SAFETY PROTOCOL IN PLACE, BED IN LOWEST POSITION, 2 SIDE RAILS UP, CALL LIGHT WITHIN REACH. WILL ENDORSE TO NIGHT NURSE FOR FRANSICO. 0
--- NOTE | 2021-05-27 19:51 | NUR ---
RN NOTE PATIENT SITTING IN BED, ALERT AND ORIENTED X4. ON ROOM AIR, O2 SAT 97%. COMPLAINED OF 8/10 GENERALIZED BODY PAIN AND REQUESTED FOR PAIN MED. DILAUDID PRN ADMINISTERED ORDERED. BLOOD PRESSURE STABLE. IV ACCESS ON RIGHT FOREARM MIDLINE PATENT AND INTACT. RIGHT FEMORAL HD CATH NOTED, DRESSING DRY AND INTACT. BED LOCKED AND IN LOWEST POSITION. CALL LIGHT WITHIN REACH. ALL NEEDS ANTICIPATED.
[2021-05-28] VITALS (11 sets, daily range): BP systolic 106–142; BP diastolic 61–84
[2021-05-28] MEDS: HYDROMORPHONE 1 MG/1 ML DISP.SYRIN IV PRN ×4 (02:00→23:28)
[2021-05-28] MEDS: diphenhydrAMINE HCL 50 MG/ML VIAL IV PRN ×3 (03:13→21:28)
[2021-05-28 06:40] LABS: BASOPHILS % (AUTO) 1.1 % (0.0-2.0); EOSINOPHILS % (AUTO) 10.4 % (0.0-6.0); HEMATOCRIT 21 % (33-45); LYMPHOCYTES # (AUTO) 0.4 K/uL (0.8-4.8); LYMPHOCYTES % (AUTO) 13.9 % (20.0-44.0); MEAN CORPUSCULAR HGB CONC 33 g/dl (31.0-36.0); MEAN CORPUSCULAR VOLUME 98 fL (82-100); MONOCYTES # (AUTO) 0.5 K/uL (0.1-1.30); MONOCYTES % (AUTO) 20.4 % (2.0-12.0); NEUTROPHILS # (AUTO) 1.4 K/uL (1.8-8.9); NEUTROPHILS % (AUTO) 54.2 % (43.0-81.0); PLATELET COUNT (AUTO) 91 K/uL (150-450); RED BLOOD CELL COUNT(AUTO) 2.13 MIL/uL (4.0-5.2); WHITE BLOOD COUNT (AUTO) 2.7 K/uL (4.3-11.0)
--- NOTE | 2021-05-28 06:57 | NUR ---
RN NOTE PATIENT RESTING IN BED. ON ROOM AIR, O2 SAT 98%. IV ACCESS ON RIGHT FOREARM MIDLINE PATENT AND INTACT. RIGHT FEMORAL HD CATH NOTED, DRESSING DRY AND INTACT. ALL MEDS GIVEN ORDERED, AND TOLERATED WELL. BED LOCKED AND IN LOWEST POSITION. CALL LIGHT WITHIN REACH. WILL ENDORSE TO AM SHIFT.
[2021-05-28 07:00] LABS: CALCIUM, SERUM 8.5 mg/dL (8.5-10.1); CREATININE 6.7 mg/dL (0.6-1.3); MAGNESIUM 2.1 mg/dL (1.8-2.4); PHOSPHORUS 5.3 mg/dL (2.5-4.9); POTASSIUM 5.7 mmol/L (3.5-5.1)
--- NOTE | 2021-05-28 07:05 | NUR ---
RN NOTE RECEIVED CALL FROM LAB, SPOKE TO OCTOBER WITH CRITICAL LAB HGB 6.9. ENDORSED TO [address] FOR FOLLOW UP.
[2021-05-28 07:06] LABS: HEMOGLOBIN 6.9 g/dL (11.5-14.8)
[2021-05-28] MEDS: BLOOD SUGAR DIAGNOSTIC 1 EACH STRIP IN SCH ×4 (07:30→21:44)
--- NOTE | 2021-05-28 07:35 | NUR ---
RN OPENING NOTE RECEIVE REPORT FROM OFFSET PLATEMAKER NURSE. PATIENT IN STABLE CONDITION AT TIME OF REPORT. ON ROOM AIR WITH O2 SAT 98%. A/O X4. PATIENT AMBULATORY. WILL FOLLOW UP AM LAB. PROPER ISOLATION PRECAUTION IN PLACE. ALL SAFETY MEASURE IN PLACE. BED ON LOWEST POSITION WITH HOB ELEVATED WITH 3 SIDE RAIL UP. CALL LIGHT WITHIN REACH. WILL CONTINUE TO MONITOR.
[2021-05-28] MEDS: MONTELUKAST SODIUM (10MG) 10 MG TABLET PO SCH (08:34)
[2021-05-28] MEDS: SEVELAMER CARBONATE 800 MG TABLET PO SCH ×3 (08:34→17:28)
[2021-05-28] MEDS: QUETIAPINE FUMARATE 100 MG TABLET PO SCH ×2 (08:34→16:08)
[2021-05-28] MEDS: TOPIRAMATE 100 MG TABLET PO SCH ×2 (08:35→16:08)
[2021-05-28] MEDS: LEVOTHYROXINE SODIUM 25 MCG TABLET PO SCH (08:35)
[2021-05-28] MEDS: CALCIUM ACETATE 667 MG CAP/TAB PO SCH ×3 (08:36→17:28)
[2021-05-28] MEDS: CARVEDILOL 12.5 MG TABLET PO SCH ×2 (08:36→21:29)
[2021-05-28] MEDS: ASPIRIN EC 81 MG TABLET.DR PO SCH (08:36)
[2021-05-28] MEDS: FUROSEMIDE 40 MG TABLET PO SCH ×2 (08:36→16:07)
[2021-05-28] MEDS: NIFEdipine XL (30MG) 30 MG TAB PO SCH (08:37)
[2021-05-28] MEDS: hydrALAZINE HCL 50 MG TABLET PO SCH ×2 (08:37→16:08)
[2021-05-28] MEDS: APIXABAN 2.5 MG TABLET PO SCH ×2 (08:54→16:08)
[2021-05-28] MEDS: DOXAZOSIN MESYLATE (4 MG) 4 MG TABLET PO SCH (09:12)
[2021-05-28 10:08] LABS: NEUTROPHILS % (MANUAL) 53 (42-76)
[2021-05-28 10:09] LABS: EOSINOPHILS % (MANUAL) 9 % (0-4); LYMPHOCYTES % (MANUAL) 18 % (16-48); MONOCYTES % (MANUAL) 20 % (0-11.0)
--- NOTE | 2021-05-28 16:09 | NUR ---
RN NOTE DID NOT GIVE ELIQUIS. HGB IS 6.9
--- NOTE | 2021-05-28 17:57 | NUR ---
RN NOTE 1 UNIT OF PRBC WAS GIVEN FOR HGB OF 6.9. END INFUSION AT 1750. PATIENT TOLERATE WELL. NO SIGN OF ADVERSE REACTION. VITAL SIGN WNL. WILL CONTINUE TO MONITOR.
--- NOTE | 2021-05-28 18:38 | NUR ---
RN CLOSING NOTES PATIENT IN STABLE CONDITION THROUGHOUT SHIFT. NO SOB OR ANY RESPIRATORY DISTRESS NOTED. ON ROOM AIR O2 SAT 97%. ALL DUE MEDS GIVEN. KEPT DRY AND CLEAN. ALL NEEDS ATTENDED. ALL SAFETY MEASURES IMPLEMENTED. BED LOCKED, IN LOWEST POSITION WITH SIDERAILS UP X 2, CALL LIGHT WITHIN REACH. WILL ENDORSE TO RATTLE LEAK AND SQUEAK REPAIRER NURSE FOR CONTINUITY OF CARE.
--- NOTE | 2021-05-28 19:30 | NUR ---
FIRER POWERHOUSE OPENING NOTES: RECEIVED PATIENT FROM DAY SHIFT, PATIENT IN BED, A/O X4, TELE MONITOR SHOWS NSM, ON ROOM AIR, SATURATION 98%, R. FA MIDLINE PATENT AND INTACT, R. FEMORAL HD PATENT AND INTACT, WILL CONTINUE TO MONITOR AND ADMINISTER NURSING INTERVENTIONS NECESSARY.
--- NOTE | 2021-05-28 21:00 | NUR ---
BAD CLOTH CHECKER OPENING NOTES: PATIENT RECEIVED HD, 283 CC DRAINED, VITALS - BP 130/87 AND HR 107.
--- NOTE | 2021-05-28 21:47 | NUR ---
SPEEDBOAT OPERATOR NOTES: PATIENT REFUSED ACCUCHECK
[2021-05-29] VITALS: BP 124/71
--- NOTE | 2021-05-29 06:25 | NUR ---
SANDING LINE OPERATOR CLOSING NOTES: PATIENT IN BED, A/O X4, ON ROOM AIR, NO SIGNS OF SOB, NO SIGNS OF DISTRESS, SATURATING 98%, R. FA PATENT MIDLINE PATENT AND INTACT, R. FEMORAL HD, BED AT LOWEST POSITION, SIDE RAILS UP X2, CALL LIGHT WITHIN REACH, BRAKES LOCKED AND IN POSITION, WILL CONTINUE TO MONITOR AND ENDORSE TO DAY SHIFT.
--- NOTE | 2021-05-29 07:49 | NUR ---
RN OPENING NOTE RECEIVED PATIENT IN BED. A/O X4. TELE READING SHOW SR 70's. ON ROOM AIR, TOLERATING WELL. IN NO APPARENT DISTRESS. R FA MIDLINE, INTACT AND PATENT. R FEMORAL HD CATH C/D/I. L AV FISTULA IS PRESENT. SAFETY MEASURES MAINTAINED. BED IN LOWEST POSITION, BRAKES LOCKED,. SIDE RAILS UP X2. CALL LIGHT WITHIN REACH. WILL CONTINUE PLAN OF CARE.
[2021-05-29 08:00] VITALS: BP 154/67
[2021-05-29] MEDS: APIXABAN 2.5 MG TABLET PO SCH ×4 (09:00→16:43)
--- NOTE | 2021-05-29 09:30 | NUR ---
RN NOTE HELD ELAINE Escobar/Kiara PARRA H/H.
[2021-05-29] MEDS: SEVELAMER CARBONATE 800 MG TABLET PO SCH ×3 (09:38→17:14)
[2021-05-29] MEDS: CALCIUM ACETATE 667 MG CAP/TAB PO SCH ×3 (09:38→17:14)
[2021-05-29] MEDS: TOPIRAMATE 100 MG TABLET PO SCH ×2 (09:39→16:10)
[2021-05-29] MEDS: ASPIRIN EC 81 MG TABLET.DR PO SCH (09:39)
[2021-05-29] MEDS: DOXAZOSIN MESYLATE (4 MG) 4 MG TABLET PO SCH (09:40)
[2021-05-29] MEDS: NIFEdipine XL (30MG) 30 MG TAB PO SCH (09:41)
[2021-05-29] MEDS: MONTELUKAST SODIUM (10MG) 10 MG TABLET PO SCH (09:41)
[2021-05-29] MEDS: CARVEDILOL 12.5 MG TABLET PO SCH ×2 (09:42→21:12)
[2021-05-29] MEDS: LEVOTHYROXINE SODIUM 25 MCG TABLET PO SCH (09:42)
[2021-05-29] MEDS: hydrALAZINE HCL 50 MG TABLET PO SCH ×2 (09:43→16:10)
[2021-05-29] MEDS: FUROSEMIDE 40 MG TABLET PO SCH ×2 (09:43→16:07)
[2021-05-29] MEDS: QUETIAPINE FUMARATE 100 MG TABLET PO SCH ×2 (09:43→16:07)
[2021-05-29] MEDS: HYDROMORPHONE 1 MG/1 ML DISP.SYRIN IV PRN ×3 (09:48→22:33)
[2021-05-29] MEDS: diphenhydrAMINE HCL 50 MG/ML VIAL IV PRN ×2 (09:49→16:10)
[2021-05-29] MEDS: BLOOD SUGAR DIAGNOSTIC 1 EACH STRIP IN SCH ×4 (10:07→21:17)
[2021-05-29 11:48] LABS: BASOPHILS % (AUTO) 1.3 % (0.0-2.0); EOSINOPHILS % (AUTO) 10.7 % (0.0-6.0); HEMATOCRIT 24 % (33-45); HEMOGLOBIN 8.2 g/dL (11.5-14.8); LYMPHOCYTES # (AUTO) 0.3 K/uL (0.8-4.8); LYMPHOCYTES % (AUTO) 10.6 % (20.0-44.0); MEAN CORPUSCULAR HGB CONC 34 g/dl (31.0-36.0); MEAN CORPUSCULAR VOLUME 97 fL (82-100); MONOCYTES # (AUTO) 0.5 K/uL (0.1-1.30); MONOCYTES % (AUTO) 15.4 % (2.0-12.0); PLATELET COUNT (AUTO) 97 K/uL (150-450); RED BLOOD CELL COUNT(AUTO) 2.51 MIL/uL (4.0-5.2); WHITE BLOOD COUNT (AUTO) 3.2 K/uL (4.3-11.0)
[2021-05-29 12:14] LABS: CALCIUM, SERUM 8.5 mg/dL (8.5-10.1); POTASSIUM 5.4 mmol/L (3.5-5.1)
[2021-05-29 12:19] LABS: CREATININE 8.7 mg/dL (0.6-1.3)
[2021-05-29 16:00] VITALS: BP 130/69
--- NOTE | 2021-05-29 16:20 | NUR ---
RN NOTE HELD ELIQUIS. PATIENT IS HAVING SOME NOSEBLEED.
[2021-05-29 17:26] LABS: EOSINOPHILS % (MANUAL) 12 % (0-4); LYMPHOCYTES % (MANUAL) 12 % (16-48); MONOCYTES % (MANUAL) 16 % (0-11.0); NEUTROPHILS % (MANUAL) 60 (42-76)
--- NOTE | 2021-05-29 18:20 | NUR ---
RN NOTE PATIENT WAS TRANSFERRED TO RM 115-1
--- NOTE | 2021-05-29 19:01 | NUR ---
RN CLOSING NOTE PATIENT IN BED. A/O X4. AMBULATORY. TELE READING SHOW SR 70's. ON ROOM AIR, TOLERATING WELL. IN NO APPARENT DISTRESS. R FA MIDLINE, INTACT AND PATENT. R FEMORAL HD CATH C/D/I. HEMODIALYSIS WAS DONE, 549 CC OUTPUT. L AV FISTULA, BRUIT AND THRILL ARE PRESENT. DUE MEDS GIVEN ORDERED. ALL NEEDS HAVE BEEN MET AND ATTENDED. SAFETY MEASURES MAINTAINED. BED IN LOWEST POSITION, BRAKES LOCKED,. SIDE RAILS UP X2. CALL LIGHT WITHIN REACH. WILL ENDORSE CONTINUITY OF CARE TO ONCOMING SHIFT.
--- NOTE | 2021-05-29 19:47 | NUR ---
RN NOTE RECEIVED PATIENT IN BED, SLEEPING, EASILY AROUSABLE, AOX4 AT THIS TIME. ABLE TO MAKE NEEDS KNOWN. BREATHING EVEN AND UNLABORED. TOLERATING ROOM AIR. NO SOB NOTED. DENIES CHEST PAIN AT THIS TIME. ON TELE MONITORING AT 75 BPM, SR. SKIN WARM AND DRY. NO BLEEDING NOTED. NOTED WITH RIGHT FOREARM MIDLINE 18G. FLUSHING WELL WITH GOOD BLOOD RETURN. NO INFILTRATION NOTED. BED LOW, IN LOCKED POSITION. CALL LIGHT WITHIN REACH.
--- NOTE | 2021-05-29 19:57 | NUR ---
RN NOTE PATIENT NOTED WITH LEFT UPPER ARM AV-FISTULA, NO BLEEDING NOTED. NOTED WITH RIGHT FEMORAL HD ACCESS. NO BLEEDING NOTED. WILL CONTINUE TO MONITOR.
--- NOTE | 2021-05-29 21:17 | NUR ---
RN NOTES: PATIENT REFUSED SCHEDULED ACCU CHECK. OFFERED 3X STILL REFUSED. EXPLAINED THE RISK OF NOT CHECKING BLOOD SUGAR TO PATIENT BUT STILL REFUSED. NO S/S OF HYPER/HYPOGLYCEMIA AT THIS MOMENT. PT NOTED TO BE EATING SNACK. CHARGE NURSE MADE AWARE. WILL CONTINUE TO MONITOR
--- NOTE | 2021-05-29 22:33 | NUR ---
RN NOTES PATIENT C/O PAIN ON RT LATERAL LEG AND RT LATERAL ABDOMEN 01/22. PT STATES, PAIN IS SHARP AND DULL. PT ABLE TO PERFORM ACTIVE ROM OF RT LEG. DENIES CONSTIPATION. NO BLEEDING. ADMINISTER DILAUDID 1 MG/ML VIA IV PUSH. NO INFILTRATIONS NOTED. V/S WITH IN NORMAL LIMIT. CALL LIGHT WITH IN REACH. WILL CONTINUE TO MONITOR
[2021-05-30] MEDS: diphenhydrAMINE HCL 50 MG/ML VIAL IV PRN ×3 (00:31→22:12)
--- NOTE | 2021-05-30 00:31 | NUR ---
RN NOTES: PATIENT C/O GENERALIZED ITCHINESS. SEEN SCRATCHING HER RT ARM AND LEFT LOWER LEG. ADMINISTER BENADRYL 50MG/ML PER MD ORDER. REMINDED PT TO NOT SCRATCH SKIN TO PREVENT SKIN BREAKDOWN. WILL CONTINUE TO MONITOR. CALL LIGHT WITH IN REACH.
[2021-05-30] MEDS ORDERED: LORAZEPAM INJ 2 MG/ML VIAL IV PRN (02:00)
--- NOTE | 2021-05-30 02:09 | NUR ---
RN NOTE AT 0120, PATIENT WAS COMPLAINING OF ANXIETY, AND WANTED TO LEAVE AMA. PATIENT STATES SHE DOES NOT WANT TO BE IN HER ROOM. PROVIDED PATIENT EXTRA BLANKETS AND A CUP OF ICE. PATIENT APPEARED IRRITABLE. RELAYED INFORMATION TO MASTER LAY OUT SPECIALIST HIGINIO MENDOZA. PER MD ORDER, ATIVAN 1MG Q6H PRN IVP. PATIENT SLEEPING AT THIS TIME. WILL CONTINUE TO MONITOR.
[2021-05-30 04:00] VITALS: BP 140/80
[2021-05-30] MEDS: HYDROMORPHONE 1 MG/1 ML DISP.SYRIN IV PRN ×3 (05:49→22:40)
--- NOTE | 2021-05-30 05:50 | NUR ---
RN NOTES PATIENT C/O PAIN ON RT LEG AND RT LATERAL ABDOMEN 02/22. PT STATES, PAIN IS ACHING AND DULL. PT ABLE TO MOVE RT LEG. NO BLEEDING. ADMINISTER DILAUDID 1 MG/ML VIA IV PUSH. NO INFILTRATIONS NOTED. V/S WITH IN NORMAL LIMIT. CALL LIGHT WITH IN REACH. WILL CONTINUE TO MONITOR
[2021-05-30] MEDS: BLOOD SUGAR DIAGNOSTIC 1 EACH STRIP IN SCH ×4 (07:30→21:11)
--- NOTE | 2021-05-30 07:30 | NUR ---
RN NOTE RECEIVED PATIENT IN BED, SLEEPING, EASILY AROUSABLE, AOX4 AT THIS TIME. ABLE TO MAKE NEEDS KNOWN. BREATHING EVEN AND UNLABORED. TOLERATING ROOM AIR. NO SOB NOTED. DENIES CHEST PAIN AT THIS TIME. SR. SKIN WARM AND DRY. NO BLEEDING NOTED. NOTED WITH RIGHT FOREARM MIDLINE 18G. FLUSHING WELL WITH GOOD BLOOD RETURN. NO INFILTRATION NOTED. BED LOW, IN LOCKED POSITION. CALL LIGHT WITHIN REACH. WILL FRANSICO.
[2021-05-30 08:00] VITALS: BP 141/76
[2021-05-30] MEDS: SEVELAMER CARBONATE 800 MG TABLET PO SCH ×3 (08:02→17:34)
[2021-05-30] MEDS: LEVOTHYROXINE SODIUM 25 MCG TABLET PO SCH (08:02)
[2021-05-30] MEDS: CALCIUM ACETATE 667 MG CAP/TAB PO SCH ×3 (08:02→17:34)
[2021-05-30 09:31] LABS: BASOPHILS % (AUTO) 0.7 % (0.0-2.0); EOSINOPHILS % (AUTO) 12.8 % (0.0-6.0); HEMATOCRIT 23 % (33-45); HEMOGLOBIN 7.6 g/dL (11.5-14.8); LYMPHOCYTES # (AUTO) 0.4 K/uL (0.8-4.8); LYMPHOCYTES % (AUTO) 11.1 % (20.0-44.0); MEAN CORPUSCULAR HGB CONC 33 g/dl (31.0-36.0); MEAN CORPUSCULAR VOLUME 99 fL (82-100); MONOCYTES # (AUTO) 0.6 K/uL (0.1-1.30); MONOCYTES % (AUTO) 16.7 % (2.0-12.0); NEUTROPHILS # (AUTO) 1.9 K/uL (1.8-8.9); NEUTROPHILS % (AUTO) 58.7 % (43.0-81.0); PLATELET COUNT (AUTO) 97 K/uL (150-450); RED BLOOD CELL COUNT(AUTO) 2.34 MIL/uL (4.0-5.2); WHITE BLOOD COUNT (AUTO) 3.3 K/uL (4.3-11.0)
[2021-05-30] MEDS: MONTELUKAST SODIUM (10MG) 10 MG TABLET PO SCH (09:31)
[2021-05-30] MEDS: hydrALAZINE HCL 50 MG TABLET PO SCH ×2 (09:31→17:34)
[2021-05-30] MEDS: NIFEdipine XL (30MG) 30 MG TAB PO SCH (09:31)
[2021-05-30] MEDS: APIXABAN 2.5 MG TABLET PO SCH ×2 (09:33→17:55)
[2021-05-30] MEDS: ASPIRIN EC 81 MG TABLET.DR PO SCH (09:33)
[2021-05-30] MEDS: FUROSEMIDE 40 MG TABLET PO SCH ×2 (09:33→17:34)
[2021-05-30] MEDS: QUETIAPINE FUMARATE 100 MG TABLET PO SCH ×2 (09:33→17:34)
[2021-05-30] MEDS: TOPIRAMATE 100 MG TABLET PO SCH ×2 (09:33→17:34)
[2021-05-30] MEDS: CARVEDILOL 12.5 MG TABLET PO SCH ×2 (09:34→21:09)
[2021-05-30] MEDS: DOXAZOSIN MESYLATE (4 MG) 4 MG TABLET PO SCH (09:34)
[2021-05-30 09:59] LABS: CALCIUM, SERUM 8.4 mg/dL (8.5-10.1); MAGNESIUM 2.3 mg/dL (1.8-2.4); PHOSPHORUS 4.9 mg/dL (2.5-4.9); POTASSIUM 5.6 mmol/L (3.5-5.1)
[2021-05-30 10:27] LABS: CREATININE 9.1 mg/dL (0.6-1.3)
[2021-05-30 16:00] VITALS: BP 133/77
--- NOTE | 2021-05-30 17:00 | NUR ---
PT REFUSED ACCU CHECK FOR MORNING AND AFTERNOON.
--- NOTE | 2021-05-30 17:30 | NUR ---
PT HAD ONE EPISODE OF NOSE BLEEDING, REPORTED TO MD GERALDINE TAYLOR AND CHARGE NURSE SOON. ELIQUIS WAS GIVEN PER ORDER
--- NOTE | 2021-05-30 18:53 | NUR ---
RN CLOSING NOTE PATIENT IN BED. A/O X4. AMBULATORY. TELE READING SHOW SR 70's. ON ROOM AIR, TOLERATING WELL. IN NO APPARENT DISTRESS. R FA MIDLINE, INTACT AND PATENT. R FEMORAL HD CATH C/D/I. L AV FISTULA, BRUIT AND THRILL ARE PRESENT. DUE MEDS GIVEN ORDERED. ALL NEEDS HAVE BEEN MET AND ATTENDED. SAFETY MEASURES MAINTAINED. BED IN LOWEST POSITION, BRAKES LOCKED,. SIDE RAILS UP X2. CALL LIGHT WITHIN REACH. WILL ENDORSE CONTINUITY OF CARE TO ONCOMING SHIFT.
--- NOTE | 2021-05-30 19:11 | NUR ---
CONTINUITY OF CARE Patient sitting up in chair, awake. Tolerating room air, no c/o SOB. Right femoral HD cath. dressing loose, will change dressing today. Call light within reach. Will cont to provide care.
[2021-05-30 20:35] VITALS: BP 135/80
--- NOTE | 2021-05-30 21:11 | NUR ---
REFUSED ACCU CHECK Patient states she is not Diabetic, decline education.
--- NOTE | 2021-05-30 22:14 | NUR ---
ITCHING Patient c/o itching in her whole body, no visible skin rash. Denies SOB. PRN Benadryl given, will reassess.
--- NOTE | 2021-05-30 22:40 | NUR ---
PAIN Patient c/o right leg and right thigh, PRN Dilaudid given. Will reassess pain level.
--- NOTE | 2021-05-30 22:50 | NUR ---
HD Dialysis tx started, RN at bedside.
--- NOTE | 2021-05-31 02:07 | NUR ---
HD Dialysis tx done. 3L output per supervisor orchard.
[2021-05-31] MEDS: diphenhydrAMINE HCL 50 MG/ML VIAL IV PRN ×3 (03:42→15:41)
[2021-05-31] MEDS: HYDROMORPHONE 1 MG/1 ML DISP.SYRIN IV PRN ×2 (04:06→12:36)
[2021-05-31 05:22] VITALS: BP 137/71
--- NOTE | 2021-05-31 06:18 | NUR ---
END OF SHIFT REPORT Patient is A/O x4. Ambulatory, independent. SALBADOR midline intact. Dressing changed to Right femoral HD catheter, no bleeding. Right leg/thigh pain improved with PRN Dilaudid. Good appetite. No other complaints.
[2021-05-31 06:55] LABS: BASOPHILS % (AUTO) 0.8 % (0.0-2.0); EOSINOPHILS % (AUTO) 12.8 % (0.0-6.0); HEMATOCRIT 24 % (33-45); LYMPHOCYTES # (AUTO) 0.4 K/uL (0.8-4.8); LYMPHOCYTES % (AUTO) 12.7 % (20.0-44.0); MEAN CORPUSCULAR HGB CONC 34 g/dl (31.0-36.0); MEAN CORPUSCULAR VOLUME 98 fL (82-100); MONOCYTES # (AUTO) 0.5 K/uL (0.1-1.30); MONOCYTES % (AUTO) 17.7 % (2.0-12.0); NEUTROPHILS # (AUTO) 1.7 K/uL (1.8-8.9); PLATELET COUNT (AUTO) 91 K/uL (150-450); RED BLOOD CELL COUNT(AUTO) 2.41 MIL/uL (4.0-5.2)
[2021-05-31 07:11] LABS: CALCIUM, SERUM 8.9 mg/dL (8.5-10.1); CREATININE 6.4 mg/dL (0.6-1.3); MAGNESIUM 2.2 mg/dL (1.8-2.4); PHOSPHORUS 3.6 mg/dL (2.5-4.9); POTASSIUM 4.9 mmol/L (3.5-5.1)
[2021-05-31] MEDS: BLOOD SUGAR DIAGNOSTIC 1 EACH STRIP IN SCH ×2 (07:30→12:00)
[2021-05-31 08:00] VITALS: BP 144/80
--- NOTE | 2021-05-31 08:00 | NUR ---
RN note Patient received AO x 4, able to responds all stimuli, denies pain or discomfort at this time. Skin is warm to touch, keep clean/dry, patient able to reposition self, intact IV site and fistula on right femoral. Respiratory even and unlabored on room air, no SOB observed. Call light within reach, kept lower bed position for safety. Will continue to monitor.
[2021-05-31 08:28] LABS: EOSINOPHILS % (MANUAL) 6 % (0-4); LYMPHOCYTES % (MANUAL) 11 % (16-48); MONOCYTES % (MANUAL) 15 % (0-11.0); NEUTROPHILS % (MANUAL) 68 (42-76)
[2021-05-31] MEDS: CALCIUM ACETATE 667 MG CAP/TAB PO SCH ×2 (08:43→12:36)
[2021-05-31] MEDS: LEVOTHYROXINE SODIUM 25 MCG TABLET PO SCH (08:43)
[2021-05-31] MEDS: SEVELAMER CARBONATE 800 MG TABLET PO SCH ×2 (08:43→12:36)
[2021-05-31] MEDS: MONTELUKAST SODIUM (10MG) 10 MG TABLET PO SCH (08:48)
[2021-05-31] MEDS: ASPIRIN EC 81 MG TABLET.DR PO SCH (08:48)
[2021-05-31] MEDS: TOPIRAMATE 100 MG TABLET PO SCH (08:49)
[2021-05-31] MEDS: QUETIAPINE FUMARATE 100 MG TABLET PO SCH (08:49)
[2021-05-31] MEDS: FUROSEMIDE 40 MG TABLET PO SCH (08:49)
[2021-05-31] MEDS: APIXABAN 2.5 MG TABLET PO SCH (09:48)
[2021-05-31] MEDS: hydrALAZINE HCL 50 MG TABLET PO SCH (09:51)
[2021-05-31] MEDS: CARVEDILOL 12.5 MG TABLET PO SCH (09:51)
[2021-05-31] MEDS: NIFEdipine XL (30MG) 30 MG TAB PO SCH (09:52)
[2021-05-31] MEDS: DOXAZOSIN MESYLATE (4 MG) 4 MG TABLET PO SCH (09:52)
--- NOTE | 2021-05-31 12:27 | NUR ---
Received discharge order to home, voucher number: [id number].
--- NOTE | 2021-05-31 12:27 | NUR ---
SS Consult: SS consult for homeless. Pt. Is a 35-year-old female. Pt. demonstrates adequate insight to the reason for hospitalization. Pt. was oriented x3, alert, and cooperative. During interview, pt. was capable of following directions, and did not make appropriate eye-contact. Pt.s speech was at a low rate. Pt.s mood was irritable. SW explored pt.s Hx of mental health and substance abuse. Pt. reported no Hx of mental health, substance abuse, suicidal or homicidal. Pt. denies auditory hallucinations, visual hallucinations, paranoia, or delusions. SW explored pt.s living situation. Per pt., she lives with her sister Annie [[id number] [place] [address]]. Pt. reported that sister cannot get her from hospital. Per pt., she reports having adequate support from her sister and mother [Laura [phone]]. Pt. expressed that she wants a taxi once discharged. KATERYNA spoke with [facility] charge nurse, and she will arrange taxi for pt. Plan: Pt. was offered resources, but pt. denies interest at this time. Once discharge, per pt., she will return to [facility] [[address] [place] [address]].
[2021-05-31 16:00] VITALS: BP 129/69
--- NOTE | 2021-05-31 16:00 | NUR ---
Patient stated wants go home and singed on AMA, who understanding about the risk and consequences involved in leaving the hospital. Patient in stable condition, vital signs are documented. Refused wheel chair, removed IV before patient leave, MD notified.
== END 2021-05-31 16:00 | disposition left against medical advice (07) | DRG 194 ==
LOC: ER 21:22 → ICU 05-26 01:51 → TELE1 05-27 18:33 → MEDSG1 05-30 03:33
PROVIDERS: ADMIT Nurse Practitioner Acute Care; ATTEND Nurse Practitioner Acute Care
PROC: 05HY33Z Insertion of Infusion Device into Upper Vein, Percutaneous Approach (ICD-10-PCS; 2021-05-26)
PROC: 30233N1 Transfusion of Nonautologous Red Blood Cells into Peripheral Vein, Percutaneous Approach (ICD-10-PCS; principal; 2021-05-28)
DX: I13.2 Hypertensive heart and chronic kidney disease with heart failure and with stage 5 chronic kidney disease, or end stage renal disease (principal); E87.2 Acidosis; N18.6 End stage renal disease; I27.20 Pulmonary hypertension, unspecified; D63.1 Anemia in chronic kidney disease; I48.91 Unspecified atrial fibrillation; E03.9 Hypothyroidism, unspecified; G43.909 Migraine, unspecified, not intractable, without status migrainosus; Z79.01 Long term (current) use of anticoagulants; I50.23 Acute on chronic systolic (congestive) heart failure; Z86.718 Personal history of other venous thrombosis and embolism; Z86.73 Personal history of transient ischemic attack (TIA), and cerebral infarction without residual deficits; Z99.2 Dependence on renal dialysis; I16.1 Hypertensive emergency; Z91.15 Patient's noncompliance with renal dialysis; E66.9 Obesity, unspecified; Z91.19 Patient's noncompliance with other medical treatment and regimen; E87.5 Hyperkalemia; Z86.711 Personal history of pulmonary embolism; Z20.822 Contact with and (suspected) exposure to COVID-19; K21.9 Gastro-esophageal reflux disease without esophagitis; Z98.890 Other specified postprocedural states; Z88.6 Allergy status to analgesic agent; Z88.1 Allergy status to other antibiotic agents; Z91.041 Radiographic dye allergy status; Z88.5 Allergy status to narcotic agent; Z91.018 Allergy to other foods; Z91.013 Allergy to seafood; Z91.048 Other nonmedicinal substance allergy status; G51.0 Bell's palsy; Z79.82 Long term (current) use of aspirin; G89.4 Chronic pain syndrome; Z79.899 Other long term (current) drug therapy; M81.0 Age-related osteoporosis without current pathological fracture; M89.9 Disorder of bone, unspecified; J45.909 Unspecified asthma, uncomplicated
CPT/HCPCS: 36415; 36600; 71045-TC; 80048-TC; 80076-TC; 82803-TC; 82962-TC; 83690-TC; 83735-TC; 84100-TC; 84484-TC; 84702-TC; 85025-TC; 86850-TC; 87081-TC; 90935-TC; 93971-TC; 94799-TC; G0378; J0360; J0610; J1170; J1200; J1815; J2270; J3490; J7030; J7050; J7060; P9016

== ENCOUNTER 2021-06-03 21:50 | Inpatient (IN) | payer MEDICAID ==
[~2021-06-03] VITALS: Ht 165.1 cm; Wt 98.0 kg
--- NOTE | 2021-06-04 00:43 | NUR ---
JESÚS NICKERSON RN AT BEDSIDE SPEAKING TO TONE BECKER (PT) REGARDING ER VISIT. PT CALM AND COLLECTIVE. PLACED ON MONITOR AND PULSE OX.
[2021-06-04] MEDS ORDERED: ONDANSETRON HCL/PF - ER 4 MG/2 ML VIAL IV ONE (01:00)
[2021-06-04] MEDS ORDERED: PANTOPRAZOLE 40 MG VIAL IV ONE (01:00)
[2021-06-04] MEDS ORDERED: ONDANSETRON HCL/PF 4 MG/2 ML VIAL ONE (01:05)
[2021-06-04 01:15] LABS: BASOPHILS % (AUTO) 0.8 % (0.0-2.0); EOSINOPHILS % (AUTO) 6.6 % (0.0-6.0); HEMATOCRIT 26 % (33-45); HEMOGLOBIN 8.5 g/dL (11.5-14.8); LYMPHOCYTES # (AUTO) 0.5 K/uL (0.8-4.8); LYMPHOCYTES % (AUTO) 10.6 % (20.0-44.0); MEAN CORPUSCULAR HGB CONC 33 g/dl (31.0-36.0); MEAN CORPUSCULAR VOLUME 98 fL (82-100); MONOCYTES # (AUTO) 0.6 K/uL (0.1-1.30); MONOCYTES % (AUTO) 11.6 % (2.0-12.0); NEUTROPHILS # (AUTO) 3.4 K/uL (1.8-8.9); NEUTROPHILS % (AUTO) 70.4 % (43.0-81.0); PLATELET COUNT (AUTO) 98 K/uL (150-450); RED BLOOD CELL COUNT(AUTO) 2.65 MIL/uL (4.0-5.2); WHITE BLOOD COUNT (AUTO) 4.9 K/uL (4.3-11.0)
[2021-06-04 01:36] LABS: ALBUMIN 4.6 g/dL (3.4-5.0); BILIRUBIN,DIRECT 0.2 mg/dL (0.0-0.2); BILIRUBIN,TOTAL 0.4 mg/dL (0.2-1.0); CALCIUM, SERUM 8.6 mg/dL (8.5-10.1); TOTAL PROTEIN, SERUM 8.3 g/dL (6.4-8.2)
[2021-06-04 01:51] LABS: CREATININE 12.9 mg/dL (0.6-1.3)
[2021-06-04] MEDS ORDERED: CALCIUM CHLORIDE 1,000 MG/10 ML DISP.SYRIN IV ONE (02:00)
[2021-06-04] MEDS ORDERED: DEXTROSE 50%-WATER 50 ML DISP.SYRIN IV ONE (02:00)
[2021-06-04] MEDS ORDERED: LEVOFLOXACIN 750 MG /D5W 150ML PIGGYBACK IV ONE (02:00)
[2021-06-04] MEDS ORDERED: SODIUM BICARBONATE SYR 50 MEQ/50 ML DISP.SYRIN IV ONE (02:00)
[2021-06-04] MEDS ORDERED: ALBUTEROL FS 2.5 MG/3 ML VIAL.NEB NEB ONE (02:00)
[2021-06-04] MEDS ORDERED: FUROSEMIDE 40 MG/4 ML VIAL IV ONE (02:00)
[2021-06-04] MEDS ORDERED: SODIUM POLYSTYRENE SULFONATE 15 G/60 ML BOTTLE PO ONE (02:00)
[2021-06-04] MEDS ORDERED: INSULIN REGULAR, HUMAN 100 UNIT/ML 10 ML VIAL IV ONE (02:00)
[2021-06-04] MEDS ORDERED: SODIUM POLYSTYRENE SULFONATE 15 G/60 ML BOTTLE ONE (02:07)
[2021-06-04] MEDS ORDERED: CALCIUM CHLORIDE 1,000 MG/10 ML DISP.SYRIN ONE (02:07)
[2021-06-04] MEDS ORDERED: SODIUM BICARBONATE SYR 50 MEQ/50 ML DISP.SYRIN ONE (02:07)
[2021-06-04] MEDS ORDERED: FUROSEMIDE 20 MG/2 ML VIAL ONE (02:07)
[2021-06-04] MEDS ORDERED: LEVOFLOXACIN 750 MG /D5W 150ML 150 ML IV ONE (02:07)
[2021-06-04] MEDS ORDERED: DEXTROSE 50%-WATER 50 ML DISP.SYRIN ONE (02:08)
[2021-06-04] MEDS ORDERED: INSULIN REGULAR, HUMAN 100 UNIT/ML 10 ML VIAL ONE (02:08)
[2021-06-04] MEDS ORDERED: ALBUTEROL FS 2.5 MG/3 ML VIAL.NEB ONE (02:18)
--- NOTE | 2021-06-04 04:20 | NUR ---
MRSA SWAB COLLECTED AND SENT TO LAB. PATIENT'S BELONGINGS LIST DONE.
[2021-06-04] MEDS ORDERED: HYDROMORPHONE 1 MG/1 ML DISP.SYRIN IV PRN (04:30)
[2021-06-04] MEDS ORDERED: NITROGLYCERIN PACKET 1 GM PACKET TOP SCH (05:30)
[2021-06-04] MEDS ORDERED: hydrALAZINE HCL IV 20 MG VIAL IV PRN (05:30)
[2021-06-04] MEDS ORDERED: hydrALAZINE HCL IV 20 MG VIAL ONE (06:08)
[2021-06-04] MEDS ORDERED: HYDROMORPHONE 1 MG/1 ML DISP.SYRIN ONE (06:09)
[2021-06-04] MEDS ORDERED: NITROGLYCERIN PACKET 1 GM PACKET ONE (06:09)
--- NOTE | 2021-06-04 06:56 | NUR ---
report given to yael hood
--- NOTE | 2021-06-04 06:56 | NUR ---
patient transferred to 112 via acls
--- NOTE | 2021-06-04 08:12 | NUR ---
RN OPENING NOTES RECEIVED PATIENT AWAKE AND ALERT/ORIENTED X 3, ABLE TO MAKE NEEDS KNOWN. NO SOB OR ANY RESPIRATORY DISTRESS NOTED. DIALYSIS NURSE AT BEDSIDE FOR HD. SAFETY MEASURES IN PLACE. BED LOCKED ON LOWEST POSITION, WITH SIDERAILS UP. CALL LIGHT WITHIN REACH. WILL CONTINUE TO MONITOR.
[2021-06-04 09:41] LABS: EOSINOPHILS % (MANUAL) 10 % (0-4); LYMPHOCYTES % (MANUAL) 9 % (16-48); MONOCYTES % (MANUAL) 10 % (0-11.0); NEUTROPHILS % (MANUAL) 71 (42-76)
--- NOTE | 2021-06-04 10:19 | NUR ---
RN NOTE NOTIFIED DR. GAYLE OF HIGH BP IN 190S, PATIENT HAVING PAIN, AND PATIENT VOMITING.
[2021-06-04] MEDS ORDERED: ONDANSETRON HCL/PF 4 MG/2 ML VIAL IV PRN (10:30)
--- NOTE | 2021-06-04 11:12 | NUR ---
RN NOTE PATIENT REMOVED TELE MONITOR AND IS REFUSING MONITORING. EXPLAINED TO PATIENT POTENTIAL RISKS.
[2021-06-04] MEDS ORDERED: ALBUTEROL SULFATE INH 18 GM HFA.AER.AD IH PRN (14:30)
[2021-06-04] MEDS ORDERED: Z GUARD REMEDY 2 OZ OINT TP PRN (14:30)
[2021-06-04] MEDS ORDERED: HYDROCODONE/APAP 5/325MG TABLET PO PRN (14:30)
[2021-06-04] MEDS ORDERED: TRAMADOL HCL 50 MG TABLET PO PRN (14:30)
[2021-06-04] MEDS ORDERED: ACETAMINOPHEN 325 MG TABLET PO PRN (14:30)
[2021-06-04] MEDS ORDERED: ONDANSETRON HCL/PF 4 MG/2 ML VIAL IVP PRN (14:30)
[2021-06-04] MEDS ORDERED: ZOLPIDEM TARTRATE 5 MG TABLET PO PRN (14:30)
[2021-06-04] MEDS: TOPIRAMATE 100 MG TABLET PO SCH ×2 (14:53→21:25)
[2021-06-04] MEDS: QUETIAPINE FUMARATE 100 MG TABLET PO SCH ×2 (14:53→17:04)
[2021-06-04] MEDS: hydrALAZINE HCL 50 MG TABLET PO SCH ×2 (14:54→17:03)
[2021-06-04] MEDS: ASPIRIN EC 81 MG TABLET.DR PO SCH (14:54)
[2021-06-04] MEDS: APIXABAN 2.5 MG TABLET PO SCH ×2 (14:55→17:05)
[2021-06-04] MEDS: HYDROMORPHONE 1 MG/1 ML DISP.SYRIN IV PRN (14:56)
[2021-06-04] MEDS ORDERED: EPOETIN ALFA (4000 UNIT) 4,000 UNIT/ML VIAL IV PRN (15:00)
[2021-06-04 15:20] LABS: POTASSIUM 6.1 mmol/L (3.5-5.1)
[2021-06-04 15:21] LABS: CREATININE 9.5 mg/dL (0.6-1.3)
[2021-06-04 16:00] VITALS: BP 173/105
[2021-06-04] MEDS: CALCIUM ACETATE 667 MG CAP/TAB PO SCH (17:03)
[2021-06-04] MEDS: CARVEDILOL 12.5 MG TABLET PO SCH (17:03)
[2021-06-04] MEDS: SEVELAMER CARBONATE 800 MG TABLET PO SCH (17:03)
[2021-06-04] MEDS: FUROSEMIDE 40 MG TABLET PO SCH (17:04)
--- NOTE | 2021-06-04 17:35 | NUR ---
RN OPENING NOTES RECEIVED PATIENT AWAKE AND ALERT/ORIENTED X 3, on ROOM AIR SATURATING AROUND 97%. PATIENT IN NO DISTRESS, DISCOMFORT,OR SOB. EVEN RESPIRATIONS WITH UNLABORED BREATHING. ALL SAFETY MEASURES IN PLACE, BED LOCKED, IN LOW POSITION, WITH 2 SIDE RAILS UP, AND CALL LIGHT WITHIN REACH. Addendum: 06/04/21 at 2012 by Lacy Lovell RN TIME - 193 NOT 173
--- NOTE | 2021-06-04 18:35 | NUR ---
RN CLOSING NOTES PATIENT REMAINS IN STABLE CONDITION THROUGHOUT SHIFT. ON ROOM AIR WITH SAT 97%. NO SOB OR RESPIRATORY DISTRESS NOTED. ALL DUE MEDS GIVEN ORDERED. KEPT PATIENT CLEAN, DRY AND COMFORTABLE. ALL SAFETY MEASURES IMPLEMENTED. BED LOCKED, IN LOWEST POSITION WITH SIDERAILS UP. CALL LIGHT WITHIN REACH. WILL ENDORSE TO BONE CRUSHER NURSE FOR CONTINUITY OF CARE.
[2021-06-04 20:00] VITALS: BP 165/77
[2021-06-04] MEDS: DOXAZOSIN MESYLATE (1 MG) 1 MG TABLET PO SCH (21:26)
[2021-06-05] VITALS: BP 157/91
[2021-06-05 04:00] VITALS: BP 182/113
[2021-06-05] MEDS: HYDROMORPHONE 1 MG/1 ML DISP.SYRIN IV PRN ×4 (04:29→21:57)
--- NOTE | 2021-06-05 06:15 | NUR ---
RN CLOSING NOTES PATIENT REMAINS IN STABLE CONDITION THROUGHOUT SHIFT. ON ROOM AIR WITH SAT 98%. NO SOB OR RESPIRATORY DISTRESS NOTED. ALL DUE MEDS GIVEN ORDERED. KEPT PATIENT CLEAN, DRY AND COMFORTABLE. PATIENT ABDOMEN PAIN MANAGED WITH MEDICATION. PATIENT IS A/O X 3. CONTACTED BOAT MOTOR MECHANIC EILEEN FOR PATIENTS BP WHICH WAS ELEVATED, NOTED ORDERS AND CARRIED OUT. ALL SAFETY MEASURES IMPLEMENTED. BED LOCKED, IN LOWEST POSITION WITH SIDERAILS UP. CALL LIGHT WITHIN REACH. WILL ENDORSE TO MORNING SHIFT NURSE FOR CONTINUITY OF CARE.
[2021-06-05] MEDS ORDERED: hydrALAZINE HCL IV 20 MG VIAL IV ONE (06:30)
--- NOTE | 2021-06-05 07:30 | NUR ---
FRENCH POLISHER NOTES PT IN BED,AWAKE, ALERT AND ORIENTED, DENIES PAIN AT THIS TIME, NOT IN DISTRESS, CALL LIGHT WITHIN REACH, NEEDS ATTENDED.
[2021-06-05 08:00] VITALS: BP 101/69
[2021-06-05] MEDS: MONTELUKAST SODIUM (10MG) 10 MG TABLET PO SCH (08:56)
[2021-06-05] MEDS: SEVELAMER CARBONATE 800 MG TABLET PO SCH ×3 (08:56→18:00)
[2021-06-05] MEDS: PANTOPRAZOLE 40 MG TABLET.DR PO SCH (08:56)
[2021-06-05] MEDS: LEVOTHYROXINE SODIUM 50 MCG TABLET PO SCH (08:56)
[2021-06-05] MEDS: TOPIRAMATE 100 MG TABLET PO SCH ×2 (08:57→21:04)
[2021-06-05] MEDS: ASPIRIN EC 81 MG TABLET.DR PO SCH (08:57)
[2021-06-05] MEDS: QUETIAPINE FUMARATE 100 MG TABLET PO SCH ×2 (08:57→17:00)
[2021-06-05] MEDS: CALCIUM ACETATE 667 MG CAP/TAB PO SCH ×3 (08:57→18:00)
[2021-06-05] MEDS: APIXABAN 2.5 MG TABLET PO SCH ×2 (08:58→17:00)
[2021-06-05] MEDS: CARVEDILOL 12.5 MG TABLET PO SCH ×2 (09:00→17:00)
[2021-06-05] MEDS: FUROSEMIDE 40 MG TABLET PO SCH ×2 (09:00→17:00)
[2021-06-05] MEDS: hydrALAZINE HCL 50 MG TABLET PO SCH ×2 (09:00→17:00)
[2021-06-05] MEDS: NIFEdipine XL (30MG) 30 MG TAB PO SCH (09:00)
[2021-06-05 12:00] VITALS: BP 178/108
--- NOTE | 2021-06-05 13:55 | NUR ---
BILINGUAL MEDICAL ASSISTANT NOTES PT SEEN AND EXAMINED BY DR. GAYLE, PLAN OF CARE DISCUSSED WITH PT, AWAITING DIALYSIS.
--- NOTE | 2021-06-05 14:00 | NUR ---
TRAFFIC OPERATIONS ENGINEER NOTES DR. GAYLE INFORMED THAT PT HAS BEEN REFUSING LABS TODAY, ORDER CANCELLED, ORDERED BMP AFTER DIALYSIS TO CHECK K.
[2021-06-05 16:00] VITALS: BP 125/85
--- NOTE | 2021-06-05 17:00 | NUR ---
AIR CREW OFFICER NOTES BP MEDS HELD, PT WITH ONGOING HEMODIALYSIS.
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
--- NOTE | 2021-06-05 19:30 | NUR ---
RN NOTES RECEIVED PT FOR CONTINUITY OF CARE. PATIENT A/OX4 IN NO S/SX OF ACUTE DISTRESS AT THIS TIME; CURRENTLY ON ROOM AIR; WITH 02 SAT >95% AT THIS TIME. HD NURSE INSIDE PT'S ROOM DOING HD FOR PT. WILL ENSURE SAFETY MEASURES WITHIN THE SHIFT. PATIENT BED ALARM IS ON. HEAD OF BED ELEVATED. BED IS LOCKED, IN LOWEST POSITION AND SIDE RAILS UP. CALL LIGHT WITHIN REACH OF THE PATIENT. APPLICABLE ISOLATION PRECAUTIONS IN PLACE. WILL CONTINUE TO MONITOR AND REASSESS FOR ANY CHANGES AND WILL CARRY OUT ANY ONGOING AND ACTIVE MD ORDER.
[2021-06-05 20:00] VITALS: BP 110/81
[2021-06-05] MEDS: DOXAZOSIN MESYLATE (1 MG) 1 MG TABLET PO SCH (21:07)
[2021-06-05 21:12] LABS: CALCIUM, SERUM 8.1 mg/dL (8.5-10.1); POTASSIUM 4.6 mmol/L (3.5-5.1)
[2021-06-05 21:16] LABS: CREATININE 8.3 mg/dL (0.6-1.3)
--- NOTE | 2021-06-05 21:20 | NUR ---
RN NOTES CRITICAL LAB RECEIVED CREATININE @8.2 (ESSENCE-FROM LAB); NOTIFIED ONCJESUS MENDOZA (DR. EILEEN Juárez) NO NEW ORDERS. PT HD PT AND HAD HD TODAY WITH OUTPUT OF 3L. STRIP MINE SUPERVISOR MADE AWARE.
[2021-06-06] VITALS: BP 150/88
--- NOTE | 2021-06-06 03:47 | NUR ---
RN NOTES RECEIVED CALL FROM LAB; SPOKE WITH MINNIE REGARDING CRITICAL RESULT FOR (+) BLOOD CXs (2 BOTTLES) GROWING GEAM + COCCI IN CLUSTERS AND GRAM + IN PAIRS 2 ORGANISM, PT NOT IN ABX AT THIS TIME. INFORMED ONCJESUS MENDOZA (DR EILEEN Whitehead MD ACKNOWLEDGED. PUBLIC WORKS COMMISSIONER MADE AWARE.
[2021-06-06] MEDS: HYDROMORPHONE 1 MG/1 ML DISP.SYRIN IV PRN ×2 (03:59→09:50)
[2021-06-06 04:00] VITALS: BP 103/76
[2021-06-06] MEDS ORDERED: CEFEPIME 1 GM in IV D5W 50 ML IV SCH (05:00)
[2021-06-06] MEDS ORDERED: CEFEPIME 1 GM VIAL ONE (05:06)
--- NOTE | 2021-06-06 06:42 | NUR ---
RN CLOSING NOTE: PATIENT REMAINS IN ROOM IN NO SIGNS OF RESPIRATORY DISTRESS, PATIENT STILL ON ROOM AIR;TOLERATING WELL SATURATING @ >95% SP02. SAFETY MEASURES IMPLEMENTED, BED IN LOWEST POSITION, LOCKED, SIDE RAILS UP, CALL LIGHT WITHIN REACH. ALL NEEDS AND ORDERS ADDRESSED DURING THE SHIFT. IV ACCESS MAINTAINED INTACT, SECURED AND FLUSHING WELL. ALL DUE MEDS GIVEN ORDERED & SCHEDULED ; PATIENT TOLERATED WELL. PATIENT KEPT CLEAN AND COMFORTABLE WITHIN THE SHIFT. PATIENT ENDORSED TO INCOMING SHIFT RN WITH STABLE VITAL SIGN AND FOR CONTINUITY OF CARE.
--- NOTE | 2021-06-06 07:30 | NUR ---
NEWSROOM INTERN AM NOTES PATIENT IN BED. A/OX4, ON ROOM AIR. NAD, NO SOB, 02 SAT >100% AT THIS TIME. SR HR 80, DENIES CHEST PAIN/DISCOMFORT. SALBADOR MIDLINE FLUSHES WELL, SITE CLEAR, CDI DRESSING. INSTRUCTED PATIENT THAT SHE IS MEDICALLY CLEARED FOR DISCHARGE SINCE YESTERDAY. PATIENT VERBALIZED UNDERSTANDING. SAFETY MEASURES IN PLACE, HEAD OF BED ELEVATED. BED IS LOCKED, IN LOWEST POSITION AND SIDE RAILS UP. CALL LIGHT WITHIN REACH. ISOLATION PRECAUTIONS IN PLACE. WILL CONTINUE TO MONITOR AND REASSESS FOR ANY CHANGES AND WILL CARRY OUT ANY ONGOING AND ACTIVE MD ORDER.
--- NOTE | 2021-06-06 07:59 | NUR ---
PER WEST PAC COVID NEGATIVE.
[2021-06-06 08:00] VITALS: BP 111/71
[2021-06-06 08:11] LABS: CALCIUM, SERUM 8.4 mg/dL (8.5-10.1); MAGNESIUM 2.1 mg/dL (1.8-2.4); PHOSPHORUS 4.7 mg/dL (2.5-4.9); POTASSIUM 5.4 mmol/L (3.5-5.1)
[2021-06-06 08:15] LABS: BASOPHILS % (AUTO) 0.6 % (0.0-2.0); EOSINOPHILS % (AUTO) 10.9 % (0.0-6.0); HEMATOCRIT 21 % (33-45); LYMPHOCYTES # (AUTO) 0.3 K/uL (0.8-4.8); LYMPHOCYTES % (AUTO) 11.4 % (20.0-44.0); MEAN CORPUSCULAR HGB CONC 34 g/dl (31.0-36.0); MEAN CORPUSCULAR VOLUME 97 fL (82-100); MONOCYTES # (AUTO) 0.5 K/uL (0.1-1.30); MONOCYTES % (AUTO) 17.8 % (2.0-12.0); NEUTROPHILS # (AUTO) 1.7 K/uL (1.8-8.9); NEUTROPHILS % (AUTO) 59.3 % (43.0-81.0); PLATELET COUNT (AUTO) 72 K/uL (150-450); RED BLOOD CELL COUNT(AUTO) 2.15 MIL/uL (4.0-5.2); WHITE BLOOD COUNT (AUTO) 2.8 K/uL (4.3-11.0)
[2021-06-06] MEDS: PANTOPRAZOLE 40 MG TABLET.DR PO SCH (08:15)
[2021-06-06] MEDS: CALCIUM ACETATE 667 MG CAP/TAB PO SCH (08:15)
[2021-06-06] MEDS: SEVELAMER CARBONATE 800 MG TABLET PO SCH (08:15)
[2021-06-06] MEDS: LEVOTHYROXINE SODIUM 50 MCG TABLET PO SCH (08:15)
[2021-06-06 08:44] LABS: CREATININE 9.4 mg/dL (0.6-1.3)
[2021-06-06] MEDS ORDERED: LINEZOLID RTU BAG 600 MG in PREMIX 1 EA IV SCH (09:00)
[2021-06-06] MEDS: APIXABAN 2.5 MG TABLET PO SCH (09:00)
[2021-06-06] MEDS: hydrALAZINE HCL 50 MG TABLET PO SCH (09:22)
[2021-06-06 09:23] VITALS: BP 111/71
[2021-06-06] MEDS: FUROSEMIDE 40 MG TABLET PO SCH (09:23)
[2021-06-06] MEDS: ASPIRIN EC 81 MG TABLET.DR PO SCH (09:23)
[2021-06-06] MEDS: QUETIAPINE FUMARATE 100 MG TABLET PO SCH (09:23)
[2021-06-06] MEDS: NIFEdipine XL (30MG) 30 MG TAB PO SCH (09:23)
[2021-06-06] MEDS: TOPIRAMATE 100 MG TABLET PO SCH (09:23)
[2021-06-06] MEDS: CARVEDILOL 12.5 MG TABLET PO SCH (09:23)
[2021-06-06] MEDS: MONTELUKAST SODIUM (10MG) 10 MG TABLET PO SCH (09:24)
--- NOTE | 2021-06-06 09:30 | NUR ---
RN NOTES DUE MEDS GIVEN.
[2021-06-06 10:52] LABS: EOSINOPHILS % (MANUAL) 10 % (0-4); LYMPHOCYTES % (MANUAL) 12 % (16-48); MONOCYTES % (MANUAL) 15 % (0-11.0); NEUTROPHILS % (MANUAL) 63 (42-76)
--- NOTE | 2021-06-06 13:15 | NUR ---
STRAINER MILL OPERATOR NOTES PATIENT DISCHARGED TO HOME TODAY, STABLE CONDITION PER MD ORDER. NO DISTRESS, NO SOB, NO PAIN. PROVIDED DC INSTRUCTIONS AND HEALTH TEACHINGS AND MED RECON LIST. PATIENT TO FOLLOW UP WITH PCP IN 1-2 WEEKS AND WILL MAKE OWN SCHEDULE. IV ACCESS RIGHT UPPER MIDLINE REMOVED, PRESSURES APPLIED X 15 MINUTES, NO BLEEDING, DRESSING IN PLACE. BELONGINGS CHECKED AND RETURNED. ALL PAPER WORKS SIGNED. ESCORTED BY [facility] AND WILL GO HOME VIA PRIVATE CAR.
== END 2021-06-06 13:15 | disposition home or self-care (01) | DRG 425 ==
LOC: ER 21:53 → TRANSITION 06-04 03:42 → TELE1 06-04 06:21
PROC: 5A1D70Z Performance of Urinary Filtration, Intermittent, Less than 6 Hours Per Day (ICD-10-PCS; principal; 2021-06-04)
DX: E87.5 Hyperkalemia (principal); I13.2 Hypertensive heart and chronic kidney disease with heart failure and with stage 5 chronic kidney disease, or end stage renal disease; D63.1 Anemia in chronic kidney disease; D63.8 Anemia in other chronic diseases classified elsewhere; N18.6 End stage renal disease; G51.0 Bell's palsy; I48.91 Unspecified atrial fibrillation; Z79.01 Long term (current) use of anticoagulants; Z99.2 Dependence on renal dialysis; Z91.15 Patient's noncompliance with renal dialysis; I50.22 Chronic systolic (congestive) heart failure; E03.9 Hypothyroidism, unspecified; E66.9 Obesity, unspecified; G89.4 Chronic pain syndrome; I25.10 Atherosclerotic heart disease of native coronary artery without angina pectoris; K21.9 Gastro-esophageal reflux disease without esophagitis; Z86.718 Personal history of other venous thrombosis and embolism; M89.9 Disorder of bone, unspecified; M81.0 Age-related osteoporosis without current pathological fracture; J45.909 Unspecified asthma, uncomplicated; Z20.822 Contact with and (suspected) exposure to COVID-19; T82.898D Other specified complication of vascular prosthetic devices, implants and grafts, subsequent encounter; Y83.8 Other surgical procedures as the cause of abnormal reaction of the patient, or of later complication, without mention of misadventure at the time of the procedure
CPT/HCPCS: 36415; 71045-TC; 80048-TC; 80076-TC; 83605-TC; 83690-TC; 83735-TC; 84100-TC; 84484-TC; 85025-TC; 87040-TC; 87081-TC; 90935-TC; A4216; C9113; C9803; G0378; J0360; J0692; J0885; J1170; J1815; J1940; J1956; J2020; J2405; J3490; J7030; J7050; J7060; U0003

== ENCOUNTER 2021-07-22 11:12 | Inpatient (IN) | payer MEDICAID ==
[~2021-07-22] VITALS: Ht 165.1 cm; Wt 83.5 kg
[2021-07-22] MEDS ORDERED: MORPHINE SULFATE INJ 2 MG/ML DISP.SYRIN IV ONE ×2 (11:30→14:30)
--- NOTE | 2021-07-22 11:54 | NUR ---
attempted 2 x's to insert IV and get blood specimens, unable to get IV stick, another RN tried x 2 and unable to get IV stick, assistant housekeeping manager contacted to help get IV stick and blood samples, pt is a dialysis pt and limited options to get an IV site, bed low to floor , bed rails up, made comfortable given ice water.
--- NOTE | 2021-07-22 11:57 | NUR ---
COVID SWAB TEST PROVIDED
--- NOTE | 2021-07-22 12:24 | NUR ---
blood specimen obtained, only received half amount of blood to perform the specimens as patient complained and screamed to stop it hurt, site was in the right hand. will go back and try again in 30 to 60 minutes to obtain more blood specimen for tests ordered. Utra sound performed, x-ray given of chest
[2021-07-22] MEDS ORDERED: LEVO25TA7 PO (12:40)
[2021-07-22] MEDS ORDERED: GABA-532 PO (12:40)
[2021-07-22] MEDS ORDERED: MORPHINE SULFATE INJ 2 MG/ML DISP.SYRIN ONE (13:00)
[2021-07-22 13:32] LABS: BASOPHILS % (AUTO) 0.2 % (0.0-2.0); EOSINOPHILS % (AUTO) 0.3 % (0.0-6.0); HEMATOCRIT 21 % (33-45); HEMOGLOBIN 7.1 g/dL (11.5-14.8); LYMPHOCYTES # (AUTO) 0.4 K/uL (0.8-4.8); LYMPHOCYTES % (AUTO) 7.9 % (20.0-44.0); MEAN CORPUSCULAR HGB CONC 34 g/dl (31.0-36.0); MEAN CORPUSCULAR VOLUME 97 fL (82-100); MONOCYTES # (AUTO) 0.4 K/uL (0.1-1.30); MONOCYTES % (AUTO) 8.7 % (2.0-12.0); NEUTROPHILS % (AUTO) 82.9 % (43.0-81.0); PLATELET COUNT (AUTO) 101 K/uL (150-450); RED BLOOD CELL COUNT(AUTO) 2.17 MIL/uL (4.0-5.2); WHITE BLOOD COUNT (AUTO) 4.8 K/uL (4.3-11.0)
--- NOTE | 2021-07-22 13:32 | NUR ---
MIDLINE INTACT UPPER RIGHT ARM, ALL BLOOD SPECIMENS COLLECTED, LABLED TIME W/ INITIAL AND SENT TO LAB, PT ABLE TO AMBULATE ON OWN TO VOID - X1, URININE IS CLEAR YELLOW NO FOUL ODOR NOTED, NO C/O PAIN DURING VOID, WILL COLLECT URINE SPECIMEN NEXT VOID, GIVEN WATER AND ICE PT IS COOPERATIVE, BED LOW , SIDE RAILS UP
[2021-07-22 13:48] LABS: ALBUMIN 3.9 g/dL (3.4-5.0); BILIRUBIN,DIRECT 0.2 mg/dL (0.0-0.2); BILIRUBIN,TOTAL 0.7 mg/dL (0.2-1.0); CALCIUM, SERUM 7.4 mg/dL (8.5-10.1); TOTAL PROTEIN, SERUM 7.7 g/dL (6.4-8.2)
[2021-07-22 14:14] LABS: POTASSIUM 6.4 mmol/L (3.5-5.1)
[2021-07-22 14:15] LABS: CREATININE 14.3 mg/dL (0.6-1.3)
--- NOTE | 2021-07-22 14:33 | NUR ---
PANEL ON-CALL PAGED
--- NOTE | 2021-07-22 14:54 | NUR ---
ROOM 314-2
[2021-07-22] MEDS ORDERED: MORPHINE SULFATE INJ 4 MG/ML DISP.SYRIN ONE (15:02)
[2021-07-22 15:38] VITALS: BP 166/102
--- NOTE | 2021-07-22 15:38 | NUR ---
REPORT GIVEN TO YENIFER SEVILLA FOR [facility].
--- NOTE | 2021-07-22 15:39 | NUR ---
RN NOTE Received report from YENIFER Humphrey.
[2021-07-22] MEDS ORDERED: ONDANSETRON HCL/PF 4 MG/2 ML VIAL IVP PRN (16:00)
[2021-07-22] MEDS ORDERED: Z GUARD REMEDY 4 OZ OINT TP PRN (16:00)
[2021-07-22] MEDS ORDERED: ZOLPIDEM TARTRATE 5 MG TABLET PO PRN (16:00)
--- NOTE | 2021-07-22 16:00 | NUR ---
ADMISSION NOTE Received patient via gurney from ER. Patient is A/O x 4. Patient is breathing evenly and unlabored on room air, no SOB or s/s of distrress noted. Vital signs as follows: T 97.4, HR 76, RR 20, BP 198/109, SPO2 97%. Patient to have Hemodialysis today. Patient on tele monitor. Skin assessment performed, skin is c/d/i. Edema on BLE noted. Bowel sounds active x 4. Patient has IV access on [place] midline #18G, intact and patent. Patient was oriented to room and how to use the call light. Belongings accounted for. Safety measures in place: bed inlow, locked position; siderails up x 2; call light within reach. Will continue to monitor.
[2021-07-22] MEDS ORDERED: CALCIUM ACETATE 667 MG CAP/TAB PO SCH (18:00)
[2021-07-22] MEDS ORDERED: APIXABAN 2.5 MG TABLET PO SCH (18:00)
[2021-07-22] MEDS ORDERED: SEVELAMER CARBONATE 800 MG TABLET PO SCH (18:00)
[2021-07-22] MEDS ORDERED: ALBUTEROL FS 2.5 MG/0.5 ML VIAL.NEB NEB PRN (18:00)
--- NOTE | 2021-07-22 19:53 | NUR ---
CABLE TELEVISION INSTALLER CLOSING NOTE Patient in bed, awake. A/O x 4, able to make needs known. Stable on room air, no SOB or s.s of distress noted. IV access on SALBADOR midline #18G, intact and patent. Hemodialysis ongoing right now. On tele monitoring showing SR, HR on the 60's. All needs attended to. Due meds given. Safety precautions in place: bed in low, locked position; siderails up x 2; call light within reach. Will endorse to warehouse worker 2nd shift nurse for FRANSICO.
--- NOTE | 2021-07-22 19:55 | NUR ---
BISCUIT PACKER OPENING NOTE RECEIVED PT IN BED AWAKE. A/O X4. NO SOB OR S/S OF RESPIRATORY DISTRESS. ON EXTERNAL ELECTROPLATING LABORER READING SR. IV ACCESS SALBADOR MIDLINE INTACT AND PATENT. SAFETY PRECAUTIONS IN PLACE. BED IN LOWEST LOCKED POSITION, HOB ELEVATED, SIDE RAILS UP X2, AND CALL LIGHT AND TABLE WITHIN REACH. WILL CONTINUE WITH PLAN OF CARE.
[2021-07-22] MEDS ORDERED: HYDROMORPHONE 1 MG/1 ML DISP.SYRIN IV PRN (20:00)
[2021-07-22] MEDS ORDERED: hydrALAZINE HCL IV 20 MG VIAL IV PRN (20:00)
--- NOTE | 2021-07-22 20:48 | NUR ---
RN NOTE PT SIGNED AMA AT THIS TIME AND STATED SHE WANTED TO LEAVE BECAUSE "I WANT TO BE HOME". EDUCATED PT ON RISKS OF LEAVING AMA AND PT VERBALIZED UNDERSTANDING. CERTIFIED ALCOHOL COUNSELOR SAM GOSS AND CHARGE NURSE LEANDRO MADE AWARE. IV ACCES AND ID BAND REMOVED. PT ESCORTED TO LOBBY VIA WHEELCHAIR WITH PERSONAL BELONGINGS, ACCOMPANIED BY GERMANIA VALENTIN.
[2021-07-23] MEDS ORDERED: PANTOPRAZOLE 40 MG TABLET.DR PO SCH (07:30)
[2021-07-23] MEDS ORDERED: LEVOTHYROXINE SODIUM 25 MCG TABLET PO SCH (07:30)
[2021-07-23] MEDS ORDERED: MONTELUKAST SODIUM (10MG) 10 MG TABLET PO SCH (09:00)
[2021-07-23] MEDS ORDERED: CARVEDILOL 12.5 MG TABLET PO SCH (09:00)
[2021-07-23] MEDS ORDERED: GABAPENTIN 100 MG CAPSULE PO SCH (09:00)
[2021-07-23] MEDS ORDERED: TOPIRAMATE 100 MG TABLET PO SCH (09:00)
[2021-07-23] MEDS ORDERED: hydrALAZINE HCL 50 MG TABLET PO SCH (09:00)
[2021-07-23] MEDS ORDERED: QUETIAPINE FUMARATE 100 MG TABLET PO SCH (09:00)
[2021-07-23] MEDS ORDERED: DOXAZOSIN MESYLATE (4 MG) 4 MG TABLET PO SCH (09:00)
[2021-07-23] MEDS ORDERED: NIFEdipine XL (30MG) 30 MG TAB PO SCH (09:00)
== END 2021-07-22 20:47 | disposition left against medical advice (07) | DRG 199 ==
LOC: ER 11:15 → TELE 15:21
PROVIDERS: ADMIT Nurse Practitioner Family; ATTEND Nurse Practitioner Family
PROC: 05H533Z Insertion of Infusion Device into Right Subclavian Vein, Percutaneous Approach (ICD-10-PCS; principal; 2021-07-22)
PROC: B546ZZA Ultrasonography of Right Subclavian Vein, Guidance (ICD-10-PCS; 2021-07-22)
PROC: 5A1D70Z Performance of Urinary Filtration, Intermittent, Less than 6 Hours Per Day (ICD-10-PCS; 2021-07-22)
DX: I16.0 Hypertensive urgency (principal); I50.23 Acute on chronic systolic (congestive) heart failure; D63.1 Anemia in chronic kidney disease; N18.6 End stage renal disease; I13.2 Hypertensive heart and chronic kidney disease with heart failure and with stage 5 chronic kidney disease, or end stage renal disease; Z79.01 Long term (current) use of anticoagulants; E87.5 Hyperkalemia; E03.9 Hypothyroidism, unspecified; E66.9 Obesity, unspecified; G89.4 Chronic pain syndrome; J45.909 Unspecified asthma, uncomplicated; K21.9 Gastro-esophageal reflux disease without esophagitis; M89.9 Disorder of bone, unspecified; Z86.718 Personal history of other venous thrombosis and embolism; Z86.711 Personal history of pulmonary embolism; Z86.73 Personal history of transient ischemic attack (TIA), and cerebral infarction without residual deficits; I48.91 Unspecified atrial fibrillation; Z68.30 Body mass index [BMI] 30.0-30.9, adult; R53.1 Weakness; Z99.2 Dependence on renal dialysis; M81.0 Age-related osteoporosis without current pathological fracture; Z20.822 Contact with and (suspected) exposure to COVID-19; R07.9 Chest pain, unspecified
CPT/HCPCS: 36415; 71045-TC; 76700-TC; 80048-TC; 80076-TC; 83605-TC; 84484-TC; 85025-TC; 85730-TC; 87040-TC; 87081-TC; 90935-TC; C9803; G0378; J2270; J2405

== ENCOUNTER 2021-07-24 00:32 | Inpatient (IN) | payer MEDICAID ==
[~2021-07-24] VITALS: Ht 165.1 cm; Wt 90.7 kg
[~2021-07-24 00:32] MED LIST changes: -ASPI-1420 PO; +GABA-532 PO; +LEVO25TA7 PO; -LEVO50TA8 PO; -TRAM50TA2 PO
[2021-07-24] MEDS ORDERED: DILTIAZEM HCL 25 MG IV ONE (01:23)
[2021-07-24] MEDS ORDERED: DILTIAZEM HCL 25 MG IV IVP ONE (01:30)
[2021-07-24] MEDS ORDERED: DILTIAZEM HCL IV 125 MG in IV D5W 100 ML IV ONE (01:30)
[2021-07-24 02:03] LABS: BASOPHILS % (AUTO) 0.3 % (0.0-2.0); EOSINOPHILS % (AUTO) 1.9 % (0.0-6.0); HEMATOCRIT 24 % (33-45); HEMOGLOBIN 8.1 g/dL (11.5-14.8); LYMPHOCYTES # (AUTO) 0.4 K/uL (0.8-4.8); LYMPHOCYTES % (AUTO) 7.6 % (20.0-44.0); MEAN CORPUSCULAR HGB CONC 34 g/dl (31.0-36.0); MEAN CORPUSCULAR VOLUME 98 fL (82-100); MONOCYTES # (AUTO) 0.4 K/uL (0.1-1.30); MONOCYTES % (AUTO) 7.9 % (2.0-12.0); NEUTROPHILS % (AUTO) 82.3 % (43.0-81.0); PLATELET COUNT (AUTO) 110 K/uL (150-450); RED BLOOD CELL COUNT(AUTO) 2.45 MIL/uL (4.0-5.2); WHITE BLOOD COUNT (AUTO) 4.9 K/uL (4.3-11.0)
[2021-07-24 02:38] LABS: BILIRUBIN,DIRECT 0.2 mg/dL (0.0-0.2); BILIRUBIN,TOTAL 0.5 mg/dL (0.2-1.0); CALCIUM, SERUM 7.3 mg/dL (8.5-10.1); POTASSIUM 4.9 mmol/L (3.5-5.1); TOTAL PROTEIN, SERUM 8.2 g/dL (6.4-8.2)
[2021-07-24] MEDS ORDERED: HYDROMORPHONE 1 MG/1 ML DISP.SYRIN ONE (02:47)
[2021-07-24 02:51] LABS: CREATININE 12.3 mg/dL (0.6-1.3)
[2021-07-24] MEDS ORDERED: HYDROMORPHONE 1 MG/1 ML DISP.SYRIN IV ONE (03:00)
[2021-07-24] MEDS ORDERED: ACETAMINOPHEN 325 MG TABLET PO PRN (03:30)
[2021-07-24] MEDS ORDERED: MORPHINE SULFATE INJ 2 MG/ML DISP.SYRIN IV PRN (03:30)
[2021-07-24] MEDS ORDERED: ONDANSETRON HCL/PF 4 MG/2 ML VIAL IVP PRN (03:30)
[2021-07-24] MEDS ORDERED: LABETALOL 20 MG/4 ML VIAL IV PRN (03:30)
[2021-07-24] MEDS ORDERED: ALBUTEROL FS 2.5 MG/3 ML VIAL.NEB NEB PRN (04:30)
[2021-07-24] MEDS ORDERED: CARVEDILOL 12.5 MG TABLET PO ONE (05:00)
[2021-07-24] MEDS: APIXABAN 2.5 MG TABLET PO SCH ×2 (05:30→17:22)
[2021-07-24] MEDS ORDERED: APIXABAN 5 MG TABLET ONE (05:39)
[2021-07-24] MEDS ORDERED: CARVEDILOL 12.5 MG TABLET ONE (05:39)
[2021-07-24 06:44] VITALS: BP 181/122
[2021-07-24 08:00] VITALS: BP 155/95
[2021-07-24] MEDS: SEVELAMER CARBONATE 800 MG TABLET PO SCH ×3 (08:26→17:21)
[2021-07-24] MEDS: LEVOTHYROXINE SODIUM 25 MCG TABLET PO SCH (08:26)
[2021-07-24] MEDS: CALCIUM ACETATE 667 MG CAP/TAB PO SCH ×3 (08:27→17:22)
[2021-07-24] MEDS: FUROSEMIDE 40 MG TABLET PO SCH ×2 (08:27→17:22)
[2021-07-24] MEDS: NIFEdipine XL (30MG) 30 MG TAB PO SCH (08:29)
[2021-07-24] MEDS: TOPIRAMATE 100 MG TABLET PO SCH ×2 (08:29→17:21)
[2021-07-24] MEDS: DOXAZOSIN MESYLATE (4 MG) 4 MG TABLET PO SCH (08:29)
[2021-07-24] MEDS: MONTELUKAST SODIUM (10MG) 10 MG TABLET PO SCH (08:29)
[2021-07-24] MEDS: hydrALAZINE HCL 50 MG TABLET PO SCH ×2 (08:30→17:00)
[2021-07-24] MEDS: GABAPENTIN 100 MG CAPSULE PO SCH ×3 (08:30→17:22)
[2021-07-24] MEDS: QUETIAPINE FUMARATE 100 MG TABLET PO SCH ×2 (08:30→17:21)
[2021-07-24] MEDS ORDERED: ONDANSETRON HCL/PF 4 MG/2 ML VIAL IV ONE (09:00)
[2021-07-24] MEDS ORDERED: METOCLOPRAMIDE HCL 10 MG/2 ML VIAL IV PRN (09:00)
[2021-07-24] MEDS ORDERED: APIXABAN 2.5 MG TABLET PO SCH (09:00)
[2021-07-24 12:00] VITALS: BP 137/88
[2021-07-24] MEDS: HYDROMORPHONE 1 MG/1 ML DISP.SYRIN IV PRN (14:07)
[2021-07-24 16:00] VITALS: BP 146/91
[2021-07-24] MEDS: CARVEDILOL 12.5 MG TABLET PO SCH (17:00)
[2021-07-24] MEDS: diphenhydrAMINE HCL 50 MG/ML VIAL IV PRN (19:08)
[2021-07-24 20:00] VITALS: BP 148/99
[2021-07-25] VITALS: BP 147/78
[2021-07-25 04:00] VITALS: BP 122/78
[2021-07-25] MEDS: HYDROMORPHONE 1 MG/1 ML DISP.SYRIN IV PRN ×3 (06:04→20:34)
[2021-07-25] MEDS: LEVOTHYROXINE SODIUM 25 MCG TABLET PO SCH (07:16)
[2021-07-25 08:00] VITALS: BP 124/66
[2021-07-25] MEDS: TOPIRAMATE 100 MG TABLET PO SCH ×2 (08:27→16:27)
[2021-07-25] MEDS: APIXABAN 2.5 MG TABLET PO SCH ×2 (08:29→16:26)
[2021-07-25] MEDS: QUETIAPINE FUMARATE 100 MG TABLET PO SCH ×2 (08:29→16:27)
[2021-07-25] MEDS: CARVEDILOL 12.5 MG TABLET PO SCH ×2 (08:30→16:24)
[2021-07-25] MEDS: DOXAZOSIN MESYLATE (4 MG) 4 MG TABLET PO SCH (08:31)
[2021-07-25] MEDS: hydrALAZINE HCL 50 MG TABLET PO SCH ×2 (08:31→16:24)
[2021-07-25] MEDS: GABAPENTIN 100 MG CAPSULE PO SCH ×3 (08:32→16:23)
[2021-07-25] MEDS: FUROSEMIDE 40 MG TABLET PO SCH ×2 (08:32→16:23)
[2021-07-25] MEDS: NIFEdipine XL (30MG) 30 MG TAB PO SCH (08:32)
[2021-07-25] MEDS: MONTELUKAST SODIUM (10MG) 10 MG TABLET PO SCH (08:32)
[2021-07-25] MEDS: SEVELAMER CARBONATE 800 MG TABLET PO SCH ×3 (08:33→17:15)
[2021-07-25] MEDS: CALCITRIOL 0.25 MCG CAPSULE PO SCH (08:35)
[2021-07-25 12:00] VITALS: BP 115/78
[2021-07-25 16:08] VITALS: BP 120/67
[2021-07-25 20:00] VITALS: BP 113/65
[2021-07-25 20:21] LABS: BASOPHILS % (AUTO) 0.4 % (0.0-2.0); EOSINOPHILS % (AUTO) 2.2 % (0.0-6.0); LYMPHOCYTES # (AUTO) 0.3 K/uL (0.8-4.8); LYMPHOCYTES % (AUTO) 7.7 % (20.0-44.0); MEAN CORPUSCULAR HGB CONC 33 g/dl (31.0-36.0); MEAN CORPUSCULAR VOLUME 99 fL (82-100); MONOCYTES # (AUTO) 0.6 K/uL (0.1-1.30); MONOCYTES % (AUTO) 15.5 % (2.0-12.0); NEUTROPHILS # (AUTO) 2.6 K/uL (1.8-8.9); NEUTROPHILS % (AUTO) 74.2 % (43.0-81.0); PLATELET COUNT (AUTO) 95 K/uL (150-450); WHITE BLOOD COUNT (AUTO) 3.6 K/uL (4.3-11.0)
[2021-07-25 20:44] LABS: RED BLOOD CELL COUNT(AUTO) 1.94 MIL/uL (4.0-5.2)
[2021-07-25 20:46] LABS: HEMATOCRIT 19 % (33-45); HEMOGLOBIN 6.4 g/dL (11.5-14.8)
[2021-07-25 20:48] LABS: ALBUMIN 3.7 g/dL (3.4-5.0); CALCIUM, SERUM 7.3 mg/dL (8.5-10.1); PHOSPHORUS 5.2 mg/dL (2.5-4.9); POTASSIUM 5.8 mmol/L (3.5-5.1); TOTAL PROTEIN, SERUM 7.5 g/dL (6.4-8.2)
[2021-07-25 20:52] LABS: CREATININE 10.5 mg/dL (0.6-1.3)
[2021-07-25 21:31] LABS: EOSINOPHILS % (MANUAL) 5 % (0-4); LYMPHOCYTES % (MANUAL) 11 % (16-48); MONOCYTES % (MANUAL) 10 % (0-11.0); NEUTROPHILS % (MANUAL) 74 (42-76)
[2021-07-26] VITALS (8 sets, daily range): BP systolic 113–145; BP diastolic 62–87
[2021-07-26 00:54] LABS: BILIRUBIN,TOTAL 0.4 mg/dL (0.2-1.0)
[2021-07-26] MEDS: diphenhydrAMINE HCL 50 MG/ML VIAL IV PRN ×2 (06:38→21:37)
[2021-07-26] MEDS: LEVOTHYROXINE SODIUM 25 MCG TABLET PO SCH (07:56)
[2021-07-26] MEDS: SEVELAMER CARBONATE 800 MG TABLET PO SCH ×3 (07:58→18:05)
[2021-07-26] MEDS: GABAPENTIN 100 MG CAPSULE PO SCH ×3 (08:31→17:05)
[2021-07-26] MEDS: MONTELUKAST SODIUM (10MG) 10 MG TABLET PO SCH (08:31)
[2021-07-26] MEDS: TOPIRAMATE 100 MG TABLET PO SCH ×2 (08:31→17:05)
[2021-07-26] MEDS: QUETIAPINE FUMARATE 100 MG TABLET PO SCH ×2 (08:31→17:05)
[2021-07-26] MEDS: APIXABAN 2.5 MG TABLET PO SCH (08:33)
[2021-07-26] MEDS: HYDROMORPHONE 1 MG/1 ML DISP.SYRIN IV PRN ×2 (08:37→17:06)
[2021-07-26] MEDS: DOXAZOSIN MESYLATE (4 MG) 4 MG TABLET PO SCH (13:06)
[2021-07-26] MEDS: CARVEDILOL 12.5 MG TABLET PO SCH ×2 (13:06→17:00)
[2021-07-26] MEDS: NIFEdipine XL (30MG) 30 MG TAB PO SCH (13:07)
[2021-07-26] MEDS: hydrALAZINE HCL 50 MG TABLET PO SCH ×2 (13:07→17:00)
[2021-07-26] MEDS: CALCITRIOL 0.25 MCG CAPSULE PO SCH (13:11)
[2021-07-26] MEDS: FUROSEMIDE 40 MG TABLET PO SCH ×2 (13:11→17:00)
[2021-07-27] MEDS: HYDROMORPHONE 1 MG/1 ML DISP.SYRIN IV PRN ×5 (00:18→21:50)
[2021-07-27] MEDS ORDERED: diphenhydrAMINE HCL 25 MG CAPSULE PO PRN (02:30)
[2021-07-27] MEDS ORDERED: ALPRAZOLAM 0.25 MG TABLET PO PRN (02:30)
[2021-07-27 08:00] VITALS: BP 138/79
[2021-07-27] MEDS: FUROSEMIDE 40 MG TABLET PO SCH ×2 (09:03→17:26)
[2021-07-27] MEDS: MONTELUKAST SODIUM (10MG) 10 MG TABLET PO SCH (09:04)
[2021-07-27] MEDS: QUETIAPINE FUMARATE 100 MG TABLET PO SCH ×2 (09:04→17:27)
[2021-07-27] MEDS: LEVOTHYROXINE SODIUM 25 MCG TABLET PO SCH (09:04)
[2021-07-27] MEDS: SEVELAMER CARBONATE 800 MG TABLET PO SCH ×3 (09:04→17:26)
[2021-07-27] MEDS: GABAPENTIN 100 MG CAPSULE PO SCH ×3 (09:04→17:27)
[2021-07-27] MEDS: TOPIRAMATE 100 MG TABLET PO SCH ×2 (09:05→17:26)
[2021-07-27] MEDS: DOXAZOSIN MESYLATE (4 MG) 4 MG TABLET PO SCH (09:05)
[2021-07-27] MEDS: NIFEdipine XL (30MG) 30 MG TAB PO SCH (09:05)
[2021-07-27] MEDS: CARVEDILOL 12.5 MG TABLET PO SCH ×2 (09:06→17:27)
[2021-07-27] MEDS: hydrALAZINE HCL 50 MG TABLET PO SCH ×2 (09:06→17:27)
[2021-07-27] MEDS: CALCITRIOL 0.25 MCG CAPSULE PO SCH (09:11)
[2021-07-27 09:14] LABS: BASOPHILS % (AUTO) 0.9 % (0.0-2.0); EOSINOPHILS % (AUTO) 2.8 % (0.0-6.0); HEMATOCRIT 23 % (33-45); HEMOGLOBIN 7.6 g/dL (11.5-14.8); LYMPHOCYTES # (AUTO) 0.4 K/uL (0.8-4.8); LYMPHOCYTES % (AUTO) 7.4 % (20.0-44.0); MEAN CORPUSCULAR HGB CONC 33 g/dl (31.0-36.0); MEAN CORPUSCULAR VOLUME 97 fL (82-100); MONOCYTES # (AUTO) 0.8 K/uL (0.1-1.30); MONOCYTES % (AUTO) 15.8 % (2.0-12.0); NEUTROPHILS # (AUTO) 3.5 K/uL (1.8-8.9); NEUTROPHILS % (AUTO) 73.1 % (43.0-81.0); PLATELET COUNT (AUTO) 108 K/uL (150-450); RED BLOOD CELL COUNT(AUTO) 2.37 MIL/uL (4.0-5.2); WHITE BLOOD COUNT (AUTO) 4.8 K/uL (4.3-11.0)
[2021-07-27 09:54] LABS: CALCIUM, SERUM 8.1 mg/dL (8.5-10.1); POTASSIUM 5.6 mmol/L (3.5-5.1)
[2021-07-27 10:07] LABS: CREATININE 8.5 mg/dL (0.6-1.3)
[2021-07-27] MEDS: diphenhydrAMINE HCL 50 MG/ML VIAL IV PRN (13:16)
[2021-07-27] MEDS: APIXABAN 5 MG TABLET PO SCH (14:59)
[2021-07-27 16:00] VITALS: BP 122/65
[2021-07-27 20:00] VITALS: BP 107/71
[2021-07-28] MEDS: HYDROMORPHONE 1 MG/1 ML DISP.SYRIN IV PRN ×5 (02:42→18:42)
[2021-07-28] MEDS: MONTELUKAST SODIUM (10MG) 10 MG TABLET PO SCH (08:11)
[2021-07-28] MEDS: CALCITRIOL 0.25 MCG CAPSULE PO SCH (08:11)
[2021-07-28] MEDS: DOXAZOSIN MESYLATE (4 MG) 4 MG TABLET PO SCH (08:11)
[2021-07-28] MEDS: SEVELAMER CARBONATE 800 MG TABLET PO SCH ×3 (08:11→16:34)
[2021-07-28] MEDS: FUROSEMIDE 40 MG TABLET PO SCH ×2 (08:12→16:34)
[2021-07-28] MEDS: CARVEDILOL 12.5 MG TABLET PO SCH ×2 (08:12→16:34)
[2021-07-28] MEDS: NIFEdipine XL (30MG) 30 MG TAB PO SCH (08:12)
[2021-07-28] MEDS: LEVOTHYROXINE SODIUM 25 MCG TABLET PO SCH (08:12)
[2021-07-28] MEDS: GABAPENTIN 100 MG CAPSULE PO SCH ×3 (08:12→16:34)
[2021-07-28] MEDS: TOPIRAMATE 100 MG TABLET PO SCH ×2 (08:12→16:34)
[2021-07-28] MEDS: QUETIAPINE FUMARATE 100 MG TABLET PO SCH ×2 (08:12→16:34)
[2021-07-28] MEDS: hydrALAZINE HCL 50 MG TABLET PO SCH ×2 (08:13→16:34)
[2021-07-28] MEDS: APIXABAN 5 MG TABLET PO SCH ×2 (08:30→16:38)
[2021-07-28] MEDS ORDERED: SODIUM POLYSTYRENE SULF. PWD 15 GM UDC PO ONE (14:30)
[2021-07-28] MEDS: diphenhydrAMINE HCL 50 MG/ML VIAL IV PRN ×2 (15:56→22:11)
[2021-07-28 20:00] VITALS: BP 123/67
[2021-07-29] MEDS: HYDROMORPHONE 1 MG/1 ML DISP.SYRIN IV PRN ×5 (01:17→22:05)
[2021-07-29] MEDS: diphenhydrAMINE HCL 50 MG/ML VIAL IV PRN ×4 (04:33→23:42)
[2021-07-29] MEDS: LEVOTHYROXINE SODIUM 25 MCG TABLET PO SCH (07:23)
[2021-07-29] MEDS: SEVELAMER CARBONATE 800 MG TABLET PO SCH ×3 (07:46→17:42)
[2021-07-29 08:00] VITALS: BP 158/100
[2021-07-29] MEDS: NIFEdipine XL (30MG) 30 MG TAB PO SCH (08:32)
[2021-07-29] MEDS: hydrALAZINE HCL 50 MG TABLET PO SCH ×2 (08:32→17:00)
[2021-07-29] MEDS: CARVEDILOL 12.5 MG TABLET PO SCH ×2 (08:33→17:00)
[2021-07-29] MEDS: QUETIAPINE FUMARATE 100 MG TABLET PO SCH ×2 (08:34→17:42)
[2021-07-29] MEDS: FUROSEMIDE 40 MG TABLET PO SCH ×2 (08:34→17:00)
[2021-07-29] MEDS: TOPIRAMATE 100 MG TABLET PO SCH ×2 (08:35→17:42)
[2021-07-29] MEDS: CALCITRIOL 0.25 MCG CAPSULE PO SCH (08:35)
[2021-07-29] MEDS: MONTELUKAST SODIUM (10MG) 10 MG TABLET PO SCH (08:35)
[2021-07-29] MEDS: GABAPENTIN 100 MG CAPSULE PO SCH ×3 (08:35→17:42)
[2021-07-29] MEDS: DOXAZOSIN MESYLATE (4 MG) 4 MG TABLET PO SCH (08:37)
[2021-07-29] MEDS: APIXABAN 5 MG TABLET PO SCH ×2 (08:39→17:43)
[2021-07-29 16:00] VITALS: BP 122/77
[2021-07-29] MEDS ORDERED: CALC0.258 PO (16:42)
[2021-07-29] MEDS ORDERED: APIX5TAB PO (16:42)
[2021-07-29 20:00] VITALS: BP 144/83
[2021-07-30] MEDS: HYDROMORPHONE 1 MG/1 ML DISP.SYRIN IV PRN ×2 (04:15→08:19)
[2021-07-30] MEDS: TOPIRAMATE 100 MG TABLET PO SCH (08:20)
[2021-07-30] MEDS: SEVELAMER CARBONATE 800 MG TABLET PO SCH (08:20)
[2021-07-30] MEDS: LEVOTHYROXINE SODIUM 25 MCG TABLET PO SCH (08:20)
[2021-07-30] MEDS: CALCITRIOL 0.25 MCG CAPSULE PO SCH (08:20)
[2021-07-30] MEDS: MONTELUKAST SODIUM (10MG) 10 MG TABLET PO SCH (08:20)
[2021-07-30] MEDS: GABAPENTIN 100 MG CAPSULE PO SCH (08:20)
[2021-07-30] MEDS: CARVEDILOL 12.5 MG TABLET PO SCH (08:21)
[2021-07-30] MEDS: FUROSEMIDE 40 MG TABLET PO SCH (08:22)
[2021-07-30] MEDS: NIFEdipine XL (30MG) 30 MG TAB PO SCH (08:22)
[2021-07-30] MEDS: hydrALAZINE HCL 50 MG TABLET PO SCH (08:22)
[2021-07-30] MEDS: QUETIAPINE FUMARATE 100 MG TABLET PO SCH (08:23)
[2021-07-30] MEDS: DOXAZOSIN MESYLATE (4 MG) 4 MG TABLET PO SCH (08:24)
[2021-07-30] MEDS: APIXABAN 5 MG TABLET PO SCH (08:25)
[2021-07-30 08:27] VITALS: BP 154/96
[2021-07-30] MEDS: diphenhydrAMINE HCL 50 MG/ML VIAL IV PRN (10:32)
== END 2021-07-30 12:00 | disposition home or self-care (01) | DRG 190 ==
LOC: ER 00:32 → TELE 03:40 → MED 07-25 15:32
PROVIDERS: ADMIT Hospitalist; ATTEND Internal Medicine
PROC: 5A1D70Z Performance of Urinary Filtration, Intermittent, Less than 6 Hours Per Day (ICD-10-PCS; 2021-07-24)
PROC: 30233N1 Transfusion of Nonautologous Red Blood Cells into Peripheral Vein, Percutaneous Approach (ICD-10-PCS; principal; 2021-07-26)
DX: I25.110 Atherosclerotic heart disease of native coronary artery with unstable angina pectoris (principal); I21.A1 Myocardial infarction type 2; I50.43 Acute on chronic combined systolic (congestive) and diastolic (congestive) heart failure; D68.59 Other primary thrombophilia; I27.20 Pulmonary hypertension, unspecified; N18.6 End stage renal disease; D63.1 Anemia in chronic kidney disease; E83.9 Disorder of mineral metabolism, unspecified; I48.0 Paroxysmal atrial fibrillation; I13.2 Hypertensive heart and chronic kidney disease with heart failure and with stage 5 chronic kidney disease, or end stage renal disease; Z79.01 Long term (current) use of anticoagulants; Z99.2 Dependence on renal dialysis; K21.9 Gastro-esophageal reflux disease without esophagitis; I16.0 Hypertensive urgency; Z20.822 Contact with and (suspected) exposure to COVID-19; E03.9 Hypothyroidism, unspecified; Z86.711 Personal history of pulmonary embolism; Z86.718 Personal history of other venous thrombosis and embolism; Z91.19 Patient's noncompliance with other medical treatment and regimen; J45.909 Unspecified asthma, uncomplicated; G89.4 Chronic pain syndrome; E66.01 Morbid (severe) obesity due to excess calories; Z68.33 Body mass index [BMI] 33.0-33.9, adult; J98.11 Atelectasis
CPT/HCPCS: 36415; 71045-TC; 80048-TC; 80053-TC; 80076-TC; 83605-TC; 83735-TC; 84100-TC; 84484-TC; 84703-TC; 85025-TC; 85730-TC; 86850-TC; 87081-TC; 90935-TC; C9803; G0378; J1170; J1200; J2270; J2405; J3490; J7030; J7050; J7060; P9016; Q0163

== ENCOUNTER 2021-08-04 02:23 | Emergency (ER) | payer MEDICAID ==
[~2021-08-04] VITALS: Ht 167.6 cm; Wt 83.9 kg
[~2021-08-04 02:23] MED LIST changes: -APIX2.5T PO; +APIX5TAB PO; +CALC0.258 PO
--- NOTE | 2021-08-04 03:24 | NUR ---
BIBS C/O "GETTING CEMENT DUST IN EYES". PT A/OX3. TOLERATING R/A WELL WITH NO SOB.
[2021-08-04] MEDS ORDERED: TETRACAINE HCL 0.5% OPHTALMIC 15 ML BOTTLE OP ONE (04:00)
[2021-08-04] MEDS ORDERED: FLUORESCEIN SODIUM OPHTH 1 EA STRIP OP ONE (04:00)
[2021-08-04] MEDS ORDERED: ERYT3.5O9 RIGHTEYE (04:07)
--- NOTE | 2021-08-04 05:00 | NUR ---
dPatient discharged to home in stable condition. Written and verbal after care instructions given. Patient verbalizes understanding of instruction.
== END 2021-08-04 05:02 | disposition home or self-care (01) ==
LOC: ER 02:45
DX: S05.01XA Injury of conjunctiva and corneal abrasion without foreign body, right eye, initial encounter (principal); G43.909 Migraine, unspecified, not intractable, without status migrainosus; I10 Essential (primary) hypertension; K21.9 Gastro-esophageal reflux disease without esophagitis; N18.6 End stage renal disease; F32.9 Major depressive disorder, single episode, unspecified; G40.801 Other epilepsy, not intractable, with status epilepticus; Z90.49 Acquired absence of other specified parts of digestive tract; Z99.2 Dependence on renal dialysis; Z91.018 Allergy to other foods; Z88.1 Allergy status to other antibiotic agents; Z88.6 Allergy status to analgesic agent; Z88.5 Allergy status to narcotic agent; Z91.040 Latex allergy status; Z91.013 Allergy to seafood; Z79.01 Long term (current) use of anticoagulants; Z79.51 Long term (current) use of inhaled steroids; Z79.899 Other long term (current) drug therapy; X58.XXXA Exposure to other specified factors, initial encounter; Y93.01 Activity, walking, marching and hiking; Y92.89 Other specified places as the place of occurrence of the external cause; Y99.8 Other external cause status

== ENCOUNTER 2021-08-23 20:36 | Inpatient (IN) | payer MEDICAID ==
[~2021-08-23] VITALS: Ht 165.1 cm; Wt 85.7 kg
[~2021-08-23 20:36] MED LIST changes: +ERYT3.5O9 RIGHTEYE
[2021-08-23] MEDS ORDERED: ENALAPRILAT DIHYD. (2.5MG/2ML) 1.25 MG/ML VIAL IV ONE ×2 (21:00→21:14)
--- NOTE | 2021-08-23 21:15 | NUR ---
BIBS C/O L-SIDED CP DESCRIBED PRESSURE. BREATHING EVEN AND UNLABORED -COUGH OR SOB 100% RA. PT PLACED ON MONITOR AND PULSE OX AND HYPERTENSIVE ON ASSESSMENT. MD WAS AT THE BEDSIDE FOR EVALUATION.
[2021-08-23] MEDS ORDERED: MORPHINE SULFATE INJ 4 MG/ML DISP.SYRIN ONE (21:35)
[2021-08-23] MEDS ORDERED: MORPHINE SULFATE INJ 2 MG/ML DISP.SYRIN IV ONE (22:00)
[2021-08-23 22:01] LABS: BASOPHILS % (AUTO) 0.8 % (0.0-2.0); EOSINOPHILS % (AUTO) 6.2 % (0.0-6.0); HEMATOCRIT 21 % (33-45); LYMPHOCYTES # (AUTO) 0.4 K/uL (0.8-4.8); LYMPHOCYTES % (AUTO) 8.5 % (20.0-44.0); MEAN CORPUSCULAR HGB CONC 33 g/dl (31.0-36.0); MEAN CORPUSCULAR VOLUME 100 fL (82-100); MONOCYTES # (AUTO) 0.6 K/uL (0.1-1.30); MONOCYTES % (AUTO) 11.9 % (2.0-12.0); NEUTROPHILS # (AUTO) 3.6 K/uL (1.8-8.9); NEUTROPHILS % (AUTO) 72.6 % (43.0-81.0); PLATELET COUNT (AUTO) 105 K/uL (150-450); RED BLOOD CELL COUNT(AUTO) 2.08 MIL/uL (4.0-5.2); WHITE BLOOD COUNT (AUTO) 4.9 K/uL (4.3-11.0)
[2021-08-23 22:11] LABS: HEMOGLOBIN 6.9 g/dL (11.5-14.8)
--- NOTE | 2021-08-23 22:13 | NUR ---
CRITICAL VALUES HBG 6.9 HCT 21. MD NOTIFIED.
[2021-08-23 22:17] LABS: EOSINOPHILS % (MANUAL) 4 % (0-4); LYMPHOCYTES % (MANUAL) 10 % (16-48); MONOCYTES % (MANUAL) 4 % (0-11.0); NEUTROPHILS % (MANUAL) 82 (42-76)
[2021-08-23 22:26] LABS: ALANINE AMINOTRANSFERASE 21 U/L (12-78); ALBUMIN 3.8 g/dL (3.4-5.0); ALKALINE PHOSPHATASE 133 U/L (46-116); ASPARTATE AMINOTRANSFERASE 15 U/L (15-37); BILIRUBIN,DIRECT 0.1 mg/dL (0.0-0.2); BILIRUBIN,TOTAL 0.3 mg/dL (0.2-1.0); CALCIUM, SERUM 8.3 mg/dL (8.5-10.1); CARBON DIOXIDE 30 mmol/L (21-32); CHLORIDE 100 mmol/L (98-107); GLUCOSE 108 mg/dL (74-106); POTASSIUM 5.4 mmol/L (3.5-5.1); SODIUM SERUM 139 mmol/L (136-145); TOTAL PROTEIN, SERUM 7.5 g/dL (6.4-8.2); UREA NITROGEN, BLOOD 77 mg/dL (7-18)
[2021-08-23] MEDS ORDERED: hydrALAZINE HCL IV 20 MG VIAL ONE (22:29)
[2021-08-23] MEDS ORDERED: hydrALAZINE HCL IV 20 MG VIAL IV ONE (22:30)
--- NOTE | 2021-08-23 23:00 | NUR ---
BLOOD TRANSFUSION INITIATED AT 75ML/HR VIA 22G IV AT [facility]. ALL V/S WNL. TWO RN VERIFIED BLOOD PRIOR TO INFUSING.
--- NOTE | 2021-08-23 23:15 | NUR ---
PT TOLERATING INFUSION WELL. V/S WNL. RATE INCREASED TO 100ML/HR.
[2021-08-23] MEDS ORDERED: NICARDIPINE HCL 40 MG in IV NS 0.9% 184 ML IV PRN (23:30)
[2021-08-24] VITALS (13 sets, daily range): BP systolic 97–214; BP diastolic 61–132
--- NOTE | 2021-08-24 00:15 | NUR ---
PER RN FINANCIAL REPORTING CONSULTANT 256 ICU.
[2021-08-24] MEDS ORDERED: NICARDIPINE IN DEXTROSE,ISO-OS 200 ML IV ONE (00:19)
--- NOTE | 2021-08-24 00:21 | NUR ---
ANA RODRIGUEZ HELD PER MD ORDER DUE TO BP 170/95
--- NOTE | 2021-08-24 00:29 | NUR ---
REPORT GIVEN ED, RN FOR FRANSICO
[2021-08-24] MEDS: NICARDIPINE IN NACL, ISO-OSM 200 ML IV PRN ×2 (00:43→02:29)
--- NOTE | 2021-08-24 01:05 | NUR ---
SAM GOSS COIL CONNECTOR AT BEDSIDE FOR MIDLINE INSERTION
[2021-08-24] MEDS ORDERED: Z GUARD REMEDY 4 OZ OINT TP PRN (01:30)
[2021-08-24] MEDS ORDERED: ONDANSETRON HCL/PF 4 MG/2 ML VIAL IVP PRN (01:30)
--- NOTE | 2021-08-24 01:30 | NUR ---
CARDENE INITIATED PER PROTOCOL PER SAM REHMAN CHAIRMAN PRESIDENT AND CHIEF EXECUTIVE OFFICER AT 5MG/HR DUE TO HTN 187/115
--- NOTE | 2021-08-24 01:31 | NUR ---
TRANSFUSION RATE INCREASED TO 165ML/HR. PT TOLERATING WELL.
--- NOTE | 2021-08-24 01:49 | NUR ---
PT TRANSPORTED TO ROOM 256 ON COPY ROOM TECHNICIAN PER ACLS PROTOCOL WITHOUT INCIDENT. BLOOD TRANSFUSING AT 165ML/HR AT 18G SALBADOR AND CARDENE INFUSING AT 5MG 22G RF. VITAL SIGNS STABLE AND PT TRANSFERRED IN STABLE CONDITION.
[2021-08-24] MEDS ORDERED: ALBUTEROL FS 2.5 MG/3 ML VIAL.NEB NEB PRN (02:00)
[2021-08-24] MEDS: HYDROMORPHONE INJ 2 MG/ML DISP.SYRIN IV PRN ×4 (02:00→20:49)
[2021-08-24] MEDS ORDERED: SODIUM POLYSTYRENE SULFONATE 15 G/60 ML BOTTLE PO ONE (02:00)
--- NOTE | 2021-08-24 02:00 | NUR ---
ICU/RN: PT REFUSED KAYEXALATE MAKENZIE GOSS MADE AWARE.
--- NOTE | 2021-08-24 02:00 | NUR ---
ICU/RN: BLOOD TRANSFUSION COMPLETE. VITALS AND TIME DOCUMENTED ON PAPER CHART. NO SS OF REACTION.
--- NOTE | 2021-08-24 02:35 | NUR ---
ICU/RN: PER CARIDAD GOSS CARDENE IS TO KEEP SBP NO LOWER THAN 160mmHG. CURRENT BP 149/95. CADENE ON HOLD.
[2021-08-24] MEDS ORDERED: SODIUM POLYSTYRENE SULFONATE 15 G/60 ML BOTTLE ONE (02:37)
--- NOTE | 2021-08-24 04:16 | NUR ---
ICU/RN: PT REFUSING LAB DRAW AND VITALS. RISKS AND BENEFITS EXPLANIED. WILL CONTINUE TO MONITOR.
[2021-08-24] MEDS ORDERED: diphenhydrAMINE HCL 25 MG CAPSULE PO PRN (05:30)
--- NOTE | 2021-08-24 07:00 | NUR ---
RN NOTES RECEIVED PT SITTING UP AT THE EDGE OF THE BED. MONITOR CABLE ARE ALL DISCONNECTED BY PT . REFUSED MORNING LAB DRAW . PT IS A/O x3, STATED WANTS PAIN MEDS SO THAT WILL HELP HER WITH HIGH BP. PLAN OF CARE REINFORCED , PT STILL REFUSED CARE .
[2021-08-24] MEDS: SEVELAMER CARBONATE 800 MG TABLET PO SCH ×3 (08:05→17:21)
[2021-08-24] MEDS: DOXAZOSIN MESYLATE (4 MG) 4 MG TABLET PO SCH (08:05)
[2021-08-24] MEDS: PANTOPRAZOLE 40 MG TABLET.DR PO SCH (08:05)
[2021-08-24] MEDS: hydrALAZINE HCL 50 MG TABLET PO SCH ×2 (08:05→16:47)
[2021-08-24] MEDS: QUETIAPINE FUMARATE 100 MG TABLET PO SCH ×2 (08:06→16:46)
[2021-08-24] MEDS: CARVEDILOL 12.5 MG TABLET PO SCH ×2 (08:06→16:47)
[2021-08-24] MEDS: TOPIRAMATE 100 MG TABLET PO SCH ×2 (08:06→20:26)
[2021-08-24] MEDS: GABAPENTIN 100 MG CAPSULE PO SCH ×3 (08:06→16:46)
[2021-08-24] MEDS: CALCIUM ACETATE 667 MG CAP/TAB PO SCH ×3 (08:06→17:21)
[2021-08-24] MEDS: CALCITRIOL 0.25 MCG CAPSULE PO SCH (08:06)
[2021-08-24] MEDS: MONTELUKAST SODIUM (10MG) 10 MG TABLET PO SCH (08:06)
[2021-08-24] MEDS: NIFEdipine XL (30MG) 30 MG TAB PO SCH (08:06)
[2021-08-24] MEDS: LEVOTHYROXINE SODIUM 25 MCG TABLET PO SCH (08:09)
[2021-08-24 09:07] LABS: BASOPHILS # (AUTO) 0.1 K/uL (0.0-0.2); BASOPHILS % (AUTO) 1.3 % (0.0-2.0); EOSINOPHILS % (AUTO) 7.1 % (0.0-6.0); HEMATOCRIT 25 % (33-45); HEMOGLOBIN 8.3 g/dL (11.5-14.8); LYMPHOCYTES # (AUTO) 0.3 K/uL (0.8-4.8); LYMPHOCYTES % (AUTO) 7.2 % (20.0-44.0); MEAN CORPUSCULAR HGB CONC 33 g/dl (31.0-36.0); MEAN CORPUSCULAR VOLUME 100 fL (82-100); MONOCYTES # (AUTO) 0.6 K/uL (0.1-1.30); MONOCYTES % (AUTO) 12.7 % (2.0-12.0); NEUTROPHILS # (AUTO) 3.5 K/uL (1.8-8.9); NEUTROPHILS % (AUTO) 71.7 % (43.0-81.0); PLATELET COUNT (AUTO) 103 K/uL (150-450); WHITE BLOOD COUNT (AUTO) 4.8 K/uL (4.3-11.0)
[2021-08-24 09:20] LABS: ALBUMIN 4.1 g/dL (3.4-5.0); BILIRUBIN,TOTAL 0.4 mg/dL (0.2-1.0); MAGNESIUM 2.6 mg/dL (1.8-2.4); PHOSPHORUS 6.3 mg/dL (2.5-4.9); POTASSIUM 5.5 mmol/L (3.5-5.1); TOTAL PROTEIN, SERUM 7.6 g/dL (6.4-8.2)
[2021-08-24 09:29] LABS: CREATININE 10.8 mg/dL (0.6-1.3)
[2021-08-24 09:30] LABS: THYROID STIMULATING HORMONE 4.554 uIU/mL (0.358-3.74)
--- NOTE | 2021-08-24 11:00 | NUR ---
RN NOTES PT REFUSING HER VSS TO BE TAKEN, WANTS TO WALK AROUND THE ROOM ,UNSTABLE GAIT. PT IS HIGH RISK FOR FALL, FALL PRECAUTION MEASURES IN PLACED . DR PABLO AWARE .
--- NOTE | 2021-08-24 13:00 | NUR ---
RN NOTES PT IS LETHARGIC, NONCOMPLIANCE WITH HER CARE, REFUSED HD AND VSS, DR PABLO NOTIFIED , PT STATED LET ME GO HOME.
--- NOTE | 2021-08-24 14:15 | NUR ---
RN NOTES PT REFUSING VSS
--- NOTE | 2021-08-24 14:42 | NUR ---
RN NOTES PT REFUSED TROPONIN DRAWING , DR PABLO NOTIFIED. ORDER RECEIVED FOR PSYCH CONSULT
--- NOTE | 2021-08-24 15:15 | NUR ---
RN NOTES PT STANDING AT HER DOOR , UNSTABLE GAIT, CURSING, EYES ARE CLOSED , REFUSING VSS . DR PABLO NOTIFIED.
--- NOTE | 2021-08-24 15:30 | NUR ---
RN NOTES PT REFUSING VSS , STATED WANTS HER PAIN MED ONLY , DR PABLO NOTIFIED, ORDER RECEIVED TO DOWNGRADE TO TELE , PT TRANSFERRED TO ROOM 323-2, TELE STATUS , PT REFUSED TO HAVE MONITOR ON DURING TRANSFER TO TELE BED. ALL HER BELONGINGS SENT TO ROOM 321-2. REPORT GIVEN TO [address] FOR CONTINUITY OF CARE .
--- NOTE | 2021-08-24 16:00 | NUR ---
PATIENT TRANSFERRED FROM ICU, REPORTED BY ADEL/RN. IN NO ACUTE DISTRESS NOTED. PATIENT REFUSED HD TODAY. WILL CONTINUE TO MONITOR FOR SAFETY.
--- NOTE | 2021-08-24 18:25 | NUR ---
RN CLOSING NOTE PATENT IN BED, REMAINS AO X 4, IN NO ACUTE DISTRESS OBSERVED. RESPIRATORY EVEN AND UNLABORED ON ROOM AIR. SKIN IS WARM TO TOUCH KEEP CLEAN/DRY, INTACT IV SITE AND AV SHUNT ON LEFT UPPER ARM. PATIENT TOOK ALL DUE MEDICATIONS AT EVENING WITH COMPLIANCE. KEPT ELEVATE HOB FOR ASPIRATION PRECAUTION AND ENSURE AIRWAY, ALSO LOWEST POSITION OF THE BED FOR SAFETY. CALL LIGHT WITHIN REACH, WILL ENDORSE TO BANK PRESIDENT.
--- NOTE | 2021-08-24 19:15 | NUR ---
TIMBER HARVESTER OPERATOR OPENING NOTES RECEIVED PATIENT AWAKE LAYING IN BED. A/O X4. PATIENT WITH REGULAR AND UNLABORED BREATHING ON ROOM AIR, TOLERATED WELL. NO SIGNS AND SYMPTOMS OF DISTRESS NOTED. NO COMPLAINS OF PAIN OR DISCOMFORT AT THIS TIME. AV SHUNT ON LEFT UPPER ARM INTACT. IV ACCESS RFA G #22 SL. IV ACCESS PATENT AND INTACT. SAFETY PRECAUTIONS ENFORCED WITH BED LOCKED AND AT LOWEST POSITION. CALL LIGHT WITHIN REACH AT ALL TIMES WILL CONTINUE TO MONITOR PATIENT.
--- NOTE | 2021-08-24 20:50 | NUR ---
COMPUTER FORWARDING SYSTEM MARKUP CLERK NOTES PATIENT COMPLAINED OF PAIN. ADMINISTERED DILAUDID ORDERED BY HOSPITALIST. WILL CONTINUE TO MONITOR PATIENT.
[2021-08-25] VITALS: BP 154/98
[2021-08-25 04:00] VITALS: BP 148/94
[2021-08-25] MEDS: HYDROMORPHONE INJ 2 MG/ML DISP.SYRIN IV PRN (06:15)
--- NOTE | 2021-08-25 06:16 | NUR ---
MEDICAL EDUCATION COORDINATOR NOTES PATIENT COMPLAINED OF PAIN. ADMINISTERED DILAUDID 1 MG ORDERED BY HOSPITALIST. WILL CONTINUE TO MONITOR PATIENT.
--- NOTE | 2021-08-25 06:38 | NUR ---
AGRICULTURAL AND FORESTRY SUPERVISOR CLOSING NOTES PATIENT STILL AWAKE LAYING IN BED. A/O X4. PATIENT WITH REGULAR AND UNLABORED BREATHING ON ROOM AIR, TOLERATED WELL. NO SIGNS AND SYMPTOMS OF DISTRESS NOTED. NO COMPLAINS OF PAIN OR DISCOMFORT AT THIS TIME. AV SHUNT ON LEFT UPPER ARM INTACT. IV ACCESS RFA G #22 SL SALBADOR G #18 SL. IV ACCESS PATENT AND INTACT. SAFETY PRECAUTIONS ENFORCED WITH BED LOCKED AND AT LOWEST POSITION. CALL LIGHT WITHIN REACH AT ALL TIMES WILL ENDORSE CONTINUITY OF CARE TO DAY SHIFT NURSE.
--- NOTE | 2021-08-25 07:48 | NUR ---
RN OPENING NOTES PATIENT AWAKE, A/O X4. NO S/S OF PAIN NOTED AT THIS TIME. PATIENT ON ROOM AIR, NO DISTRESS OR SHORTNESS OF BREATH. IV ACCESS RFA #22G, SALBADOR #18G, INTACT, PATENT AND FLUSHING WELL. PATIENT ON EXTERNAL CRIMPER ASSEMBLER CURRENT READING OF S.R. AND HR OF 78. FALL AND SAFETY MEASURES IN PLACE, BED ALARM ON, BED IN LOW AND LOCK POSITION, CALL LIGHT AND TABLE WITHIN EASY REACH, SIDE RAILS UP X2. WILL CONTINUE TO MONITOR.
[2021-08-25] MEDS: hydrALAZINE HCL 50 MG TABLET PO SCH ×2 (08:10→16:54)
[2021-08-25] MEDS: PANTOPRAZOLE 40 MG TABLET.DR PO SCH (08:10)
[2021-08-25] MEDS: TOPIRAMATE 100 MG TABLET PO SCH ×2 (08:11→21:17)
[2021-08-25] MEDS: CALCIUM ACETATE 667 MG CAP/TAB PO SCH ×3 (08:11→17:05)
[2021-08-25] MEDS: NIFEdipine XL (30MG) 30 MG TAB PO SCH (08:11)
[2021-08-25] MEDS: CALCITRIOL 0.25 MCG CAPSULE PO SCH (08:11)
[2021-08-25] MEDS: SEVELAMER CARBONATE 800 MG TABLET PO SCH ×3 (08:12→17:05)
[2021-08-25] MEDS: DOXAZOSIN MESYLATE (4 MG) 4 MG TABLET PO SCH (08:12)
[2021-08-25] MEDS: LEVOTHYROXINE SODIUM 25 MCG TABLET PO SCH (08:13)
[2021-08-25] MEDS: CARVEDILOL 12.5 MG TABLET PO SCH ×2 (08:13→16:55)
[2021-08-25] MEDS: QUETIAPINE FUMARATE 100 MG TABLET PO SCH ×2 (08:13→16:55)
[2021-08-25] MEDS: MONTELUKAST SODIUM (10MG) 10 MG TABLET PO SCH (08:14)
[2021-08-25] MEDS: GABAPENTIN 100 MG CAPSULE PO SCH ×3 (08:14→16:54)
[2021-08-25 08:20] VITALS: BP 147/88
[2021-08-25] MEDS: SODIUM POLYSTYRENE SULF. PWD 15 GM UDC PO ONE ×2 (08:39→09:00)
[2021-08-25 11:04] LABS: BASOPHILS % (AUTO) 0.6 % (0.0-2.0); EOSINOPHILS % (AUTO) 8.6 % (0.0-6.0); HEMATOCRIT 22 % (33-45); HEMOGLOBIN 7.5 g/dL (11.5-14.8); LYMPHOCYTES # (AUTO) 0.3 K/uL (0.8-4.8); LYMPHOCYTES % (AUTO) 8.5 % (20.0-44.0); MEAN CORPUSCULAR HGB CONC 34 g/dl (31.0-36.0); MEAN CORPUSCULAR VOLUME 100 fL (82-100); MONOCYTES # (AUTO) 0.5 K/uL (0.1-1.30); MONOCYTES % (AUTO) 12.7 % (2.0-12.0); NEUTROPHILS # (AUTO) 2.6 K/uL (1.8-8.9); NEUTROPHILS % (AUTO) 69.6 % (43.0-81.0); PLATELET COUNT (AUTO) 94 K/uL (150-450); RED BLOOD CELL COUNT(AUTO) 2.24 MIL/uL (4.0-5.2); WHITE BLOOD COUNT (AUTO) 3.8 K/uL (4.3-11.0)
[2021-08-25 11:40] LABS: CALCIUM, SERUM 8.8 mg/dL (8.5-10.1); MAGNESIUM 2.3 mg/dL (1.8-2.4); PHOSPHORUS 7.2 mg/dL (2.5-4.9)
[2021-08-25 11:53] LABS: CREATININE 11.5 mg/dL (0.6-1.3)
--- NOTE | 2021-08-25 12:08 | NUR ---
RN NOTE PATIENT BUN IS 89, CREATININE 11.5 AND POTASSIUM 6.0. PATIENT REFUSED TO TAKE KAYEXALATE. TRIED (X5) TO GIVE KAYEXALATE AT DIFFERENT TIMES BUT PATIENT REFUSED EVERY TIME. HEMODIALYSIS WAS RESCHEDULE FOR TODAY SINCE PATIENT REFUSED HEMODIALYSIS YESTERDAY. DOCTOR NOTIFIED, CHARGE NURSE AWARE. WILL CONTINUE TRYING TO GIVE KAYEXALATE AND WILL CONTINUE MONITORING.
[2021-08-25 12:21] LABS: LYMPHOCYTES % (MANUAL) 11 % (16-48); NEUTROPHILS % (MANUAL) 82 (42-76)
[2021-08-25 12:22] LABS: EOSINOPHILS % (MANUAL) 3 % (0-4); MONOCYTES % (MANUAL) 4 % (0-11.0)
[2021-08-25 12:59] LABS: IRON, SERUM 29 ug/dl (50-175); TOTAL IRON BINDING CAPACITY 195 ug/dl (250-450)
[2021-08-25 16:13] VITALS: BP 156/78
--- NOTE | 2021-08-25 18:33 | NUR ---
RN CLOSING NOTES PATIENT AWAKE IN BED RESTING, A/O X4. NO S/S OF PAIN NOTED AT THIS TIME. PATIENT ON ROOM AIR, NO DISTRESS OR SHORTNESS OF BREATH. IV ACCESS RFA #22G, SALBADOR #18G, INTACT, PATENT AND FLUSHING WELL. FALL AND SAFETY MEASURES IN PLACE, BED ALARM ON, BED IN LOW AND LOCK POSITION, CALL LIGHT AND TABLE WITHIN EASY REACH, SIDE RAILS UP X2. WILL ENDORSE TO INTEGRATION ANALYST.
--- NOTE | 2021-08-25 19:20 | NUR ---
MS/RN OPENING NOTE RECEIVED PATIENT SLEEPING IN BED. ALERT AND ORIENTED X 4. ABLE TO MAKE NEEDS KNOWN. DENIES PAIN AT THIS TIME. CONTINUES ON ROOM AIR WITH NO S/SX OF RESPIRATORY DISTRESS NOTED. IV ACCESS TO RIGHT FOREARM #22G AND RIGHT UPPER ARM #18G BOTH INTACT, PATENT AND SALINE LOCKED. KATERIN AV SHUNT IN PLACE WITH POSITIVE BRUIT AND THRILL. CALL LIGHT WITHIN REACH. ASPIRATION, FALL AND SAFETY PRECAUTIONS MAINTAINED. WILL CONTINUE TO MONITOR.
[2021-08-25 20:11] VITALS: BP 125/67
--- NOTE | 2021-08-26 02:40 | NUR ---
MS/RN NOTE PATIENT UP TO BATHROOM. SCORE CALLER PRESENT TO MONITOR FOR SAFETY. PATIENT YELLING, CURSING AT SCORE CALLER. RN ATTEMPTED TO SPEAK WITH PATIENT WITH PATIENT CONTINUING TO CURSE AT STAFF. PATIENT YELLED AT STAFF TO GET OUT OF ROOM. PATIENT CURRENTLY BACK IN BED. WILL CONTINUE TO MONITOR.
--- NOTE | 2021-08-26 06:35 | NUR ---
TELE/RN NOTE PATIENT REFUSED 0700 MEDICATION. RISKS/BENEFITS EXPLAINED WITH CONTINUED REFUSAL.
[2021-08-26] MEDS: LEVOTHYROXINE SODIUM 25 MCG TABLET PO SCH (06:41)
--- NOTE | 2021-08-26 06:45 | NUR ---
MS/RN CLOSING NOTE PATIENT CURRENTLY SLEEPING IN BED. ALERT AND ORIENTED X 4. ABLE TO MAKE NEEDS KNOWN. DENIES PAIN AT THIS TIME. CONTINUES ON ROOM AIR WITH NO S/SX OF RESPIRATORY DISTRESS NOTED. IV ACCESS TO RIGHT FOREARM #22G AND RIGHT UPPER ARM #18G BOTH INTACT, PATENT AND SALINE LOCKED. KATERIN AV SHUNT IN PLACE WITH POSITIVE BRUIT AND THRILL. CALL LIGHT WITHIN REACH. ASPIRATION, FALL AND SAFETY PRECAUTIONS MAINTAINED. WILL ENDORSE PLAN OF CARE TO ONCOMING SHIFT.
--- NOTE | 2021-08-26 07:34 | NUR ---
MS RN OPENING NOTE Patient in bed, asleep. A/O x 4. On room air, breathing evenly and unlabored. No SOB or s/s of distress noted. Iv access on RFA #22G SL and SALBADOR #18G SL, both intact and patent. Safety precautions in place: bed in low, locked position; siderails up x 2; call light within reach. Will continue to monitor.
[2021-08-26] MEDS: CALCIUM ACETATE 667 MG CAP/TAB PO SCH ×3 (08:44→17:31)
[2021-08-26] MEDS: SEVELAMER CARBONATE 800 MG TABLET PO SCH ×3 (08:44→17:32)
[2021-08-26] MEDS: MONTELUKAST SODIUM (10MG) 10 MG TABLET PO SCH (08:44)
[2021-08-26] MEDS: TOPIRAMATE 100 MG TABLET PO SCH ×2 (08:44→20:15)
[2021-08-26] MEDS: GABAPENTIN 100 MG CAPSULE PO SCH ×3 (08:45→17:32)
[2021-08-26] MEDS: NIFEdipine XL (30MG) 30 MG TAB PO SCH (08:45)
[2021-08-26] MEDS: DOXAZOSIN MESYLATE (4 MG) 4 MG TABLET PO SCH (08:45)
[2021-08-26] MEDS: QUETIAPINE FUMARATE 100 MG TABLET PO SCH ×2 (08:45→17:32)
[2021-08-26] MEDS: CARVEDILOL 12.5 MG TABLET PO SCH ×2 (08:45→17:32)
[2021-08-26] MEDS: hydrALAZINE HCL 50 MG TABLET PO SCH ×2 (08:46→17:33)
[2021-08-26] MEDS: CALCITRIOL 0.25 MCG CAPSULE PO SCH (08:46)
[2021-08-26] MEDS: PANTOPRAZOLE 40 MG TABLET.DR PO SCH (08:46)
[2021-08-26] MEDS: HYDROMORPHONE INJ 2 MG/ML DISP.SYRIN IV PRN ×3 (09:11→19:48)
[2021-08-26 09:32] LABS: BASOPHILS % (AUTO) 0.8 % (0.0-2.0); EOSINOPHILS % (AUTO) 6.5 % (0.0-6.0); HEMATOCRIT 23 % (33-45); HEMOGLOBIN 7.5 g/dL (11.5-14.8); LYMPHOCYTES # (AUTO) 0.2 K/uL (0.8-4.8); LYMPHOCYTES % (AUTO) 6.1 % (20.0-44.0); MEAN CORPUSCULAR HGB CONC 33 g/dl (31.0-36.0); MEAN CORPUSCULAR VOLUME 99 fL (82-100); MONOCYTES # (AUTO) 0.5 K/uL (0.1-1.30); MONOCYTES % (AUTO) 12.9 % (2.0-12.0); NEUTROPHILS # (AUTO) 2.7 K/uL (1.8-8.9); NEUTROPHILS % (AUTO) 73.7 % (43.0-81.0); PLATELET COUNT (AUTO) 88 K/uL (150-450); RED BLOOD CELL COUNT(AUTO) 2.28 MIL/uL (4.0-5.2); WHITE BLOOD COUNT (AUTO) 3.7 K/uL (4.3-11.0)
[2021-08-26 10:05] LABS: CALCIUM, SERUM 7.9 mg/dL (8.5-10.1); POTASSIUM 5.2 mmol/L (3.5-5.1)
[2021-08-26 10:07] LABS: CREATININE 9.4 mg/dL (0.6-1.3)
--- NOTE | 2021-08-26 12:46 | NUR ---
WOUND CARE CONSULT: PT PRESENTS WITH OPEN WOUND DISTAL TO LEFT UPPER ARM AVF SITE. SURGICAL CONSULT CALLED TO DR YE. PT WAS ASSESSED WITH PLASTICS PLATER. IN AGREEMENT WITH PLAN OF CARE.
--- NOTE | 2021-08-26 19:05 | NUR ---
MS RN CLOSING NOTE Patient in bed, asleep. A/O x 4, able to make needs known. stable on room air, breathing evenly and unlabored. No SOB or s/s of distress noted. IV access on SALBADOR #18G SL, intact and patent. All needs attended to. due meds given. Wound on KATERIN cleaned and dressed, as ordered. Safety precautions maintained: bed in low, locked position; siderails up x 2; call light within reach. Will endorse to material handler 1st shift nurse for FRANSICO.
--- NOTE | 2021-08-26 19:42 | NUR ---
MS RN OPENING RECEIVED PATIENT IN BED IN SITTING POSITION, WITH EYES CLOSED, EASY TO AROUSE A/OX3-4. NO S/S OF APPARENT DISTRESS ON ROOM AIR. C/O 8/10 PAIN ON HER L. SHOULDER. NO FLUIDS RUNNING AT THIS TIME. SAFETY IN PLACE. WILL CONTINUE WITH PATIENT'S PLAN OF CARE AND PAIN MANAGEMENT.
[2021-08-26 20:00] VITALS: BP 145/61
--- NOTE | 2021-08-26 21:25 | NUR ---
MS RN NOTES MRSA SWAB OBTAINED AT THIS TIME.
[2021-08-27] MEDS: HYDROMORPHONE INJ 2 MG/ML DISP.SYRIN IV PRN ×5 (00:39→20:14)
[2021-08-27] MEDS: LEVOTHYROXINE SODIUM 25 MCG TABLET PO SCH (06:37)
--- NOTE | 2021-08-27 06:54 | NUR ---
MS RN CLOSING PATIENT IN BED WITH EYES CLOSED, EASY TO AROUSE. NO S/S OF APPARENT DISTRESS ON ROOM AIR. PAIN MANAGED WITH MEDICATIONS. NO FLUIDS RUNNING AT THIS TIME. ALL NEEDS ATTENDED. WOUND TREATMENT DONE. SAFETY KEPT IN PLACE THE WHOLE SHIFT. WILL ENDORSE TO MORNING SHIFT RN FOR CONTINUITY OF CARE.
--- NOTE | 2021-08-27 07:39 | NUR ---
MS RN OPENING NOTES RECEIVED PATIENT IN BED, ASLEEP. PATIENT ON ROOM AIR; BREATHING EVEN AND UNLABORED; NO SOB NOTED. NO S/SX OF PAIN SUCH FACIAL GRIMACING, MOANING OR GUARDING NOTED. SALBADOR IV ACCESS G #18 PRESENT AND INTACT; SL AND KATERIN AV FISTULA PRESENT. SAFETY PRECAUTIONS IN PLACE; BED IN LOW POSITION AND LOCKED, RAILS UP X2, CALL LIGHT WITHIN REACH. WILL CONTINUE TO MONITOR PATIENT.
[2021-08-27] MEDS: PANTOPRAZOLE 40 MG TABLET.DR PO SCH (07:47)
[2021-08-27] MEDS: SEVELAMER CARBONATE 800 MG TABLET PO SCH ×3 (07:48→18:30)
[2021-08-27] MEDS: CALCIUM ACETATE 667 MG CAP/TAB PO SCH ×3 (07:48→18:30)
[2021-08-27 08:00] VITALS: BP 174/108
[2021-08-27] MEDS: QUETIAPINE FUMARATE 100 MG TABLET PO SCH ×2 (08:41→16:53)
[2021-08-27] MEDS: GABAPENTIN 100 MG CAPSULE PO SCH ×3 (08:41→16:53)
[2021-08-27] MEDS: TOPIRAMATE 100 MG TABLET PO SCH ×2 (08:42→21:05)
[2021-08-27] MEDS: CALCITRIOL 0.25 MCG CAPSULE PO SCH (08:42)
[2021-08-27] MEDS: CARVEDILOL 12.5 MG TABLET PO SCH ×2 (08:42→18:30)
[2021-08-27] MEDS: DOXAZOSIN MESYLATE (4 MG) 4 MG TABLET PO SCH (08:43)
[2021-08-27] MEDS: MONTELUKAST SODIUM (10MG) 10 MG TABLET PO SCH (08:44)
--- NOTE | 2021-08-27 08:56 | NUR ---
MS RN NOTES PATIENT COMPLAINING OF GENERALIZED PAIN 8 OUT OF 10. REQUESTING PAIN MEDICATION. PRN DILAUDID ADMINISTERED. WILL REASSESS.
[2021-08-27] MEDS: NIFEdipine XL (30MG) 30 MG TAB PO SCH (09:00)
[2021-08-27] MEDS: hydrALAZINE HCL 50 MG TABLET PO SCH ×2 (09:00→17:00)
--- NOTE | 2021-08-27 13:18 | NUR ---
MS RN NOTES PATIENT COMPLAINING OF GENERALIZED PAIN 8 OUT OF 10. REQUESTING PAIN MEDICATION. PRN DILAUDID ADMINISTERED. WILL REASSESS.
--- NOTE | 2021-08-27 14:52 | NUR ---
MS RN NOTES PATIENT WAS SCHEDULED FOR HD THIS AM AT 8. ONLY 2 OUT OF 4 BP MEDS ADMINISTERED DUE TO SCHEDULED HD. HD WAS RUNNING LATE WITHOUT SPECIFIC TIME. NOW THEY ARE HERE TO START HD.
[2021-08-27 16:00] VITALS: BP 173/100
--- NOTE | 2021-08-27 18:03 | NUR ---
MS RN NOTES PATIENT DONE WITH HD. POST HD BP 132/80 HR 65 3 L REMOVED TOLERATED WELL
--- NOTE | 2021-08-27 18:46 | NUR ---
MS RN OPENING NOTES PATIENT REMAINS IN BED, ASLEEP. DURING THE DAY IN AND OUT OF SLEET, LETHARGIC AND AWAKE. ABLE TO MAKE NEEDS KNOWN. PATIENT ON ROOM AIR; BREATHING EVEN AND UNLABORED; NO SOB NOTED DURING SHIFT. PAIN TREATED WITH PRN DILAUDID. SALBADOR IV ACCESS G #18 PRESENT AND INTACT; SL AND KATERIN AV FISTULA PRESENT. ALL NEEDS ATTENDED DURING THE DAY. SAFETY PRECAUTIONS IN PLACE; BED IN LOW POSITION AND LOCKED, RAILS UP X2, CALL LIGHT WITHIN REACH. WILL ENDORSE TO DRUG REGULATORY AFFAIRS SPECIALIST NURSE FOR FRANSICO.
--- NOTE | 2021-08-27 19:29 | NUR ---
MS RN OPENING RECEIVED PATIENT IN BED IN SITTING POSITION, DROWSING INTERMITTENTLY, EASY TO AROUSE A/OX4. NO S/S OF APPARENT DISTRESS ON ROOM AIR. NO C/O AT THIS TIME. NO FLUIDS RUNNING AT THIS TIME. SAFETY IN PLACE. WILL CONTINUE WITH PATIENT'S PLAN OF CARE AND PAIN MANAGEMENT.
[2021-08-27 19:49] VITALS: BP 142/93
[2021-08-28] MEDS: HYDROMORPHONE INJ 2 MG/ML DISP.SYRIN IV PRN ×6 (00:52→22:00)
[2021-08-28 06:32] LABS: BASOPHILS % (AUTO) 0.8 % (0.0-2.0); EOSINOPHILS % (AUTO) 9.3 % (0.0-6.0); HEMATOCRIT 23 % (33-45); HEMOGLOBIN 7.9 g/dL (11.5-14.8); LYMPHOCYTES # (AUTO) 0.3 K/uL (0.8-4.8); LYMPHOCYTES % (AUTO) 8.3 % (20.0-44.0); MEAN CORPUSCULAR HGB CONC 34 g/dl (31.0-36.0); MEAN CORPUSCULAR VOLUME 101 fL (82-100); MONOCYTES # (AUTO) 0.5 K/uL (0.1-1.30); MONOCYTES % (AUTO) 13.8 % (2.0-12.0); NEUTROPHILS # (AUTO) 2.2 K/uL (1.8-8.9); NEUTROPHILS % (AUTO) 67.8 % (43.0-81.0); PLATELET COUNT (AUTO) 79 K/uL (150-450); RED BLOOD CELL COUNT(AUTO) 2.31 MIL/uL (4.0-5.2); WHITE BLOOD COUNT (AUTO) 3.3 K/uL (4.3-11.0)
[2021-08-28 07:03] LABS: POTASSIUM 5.5 mmol/L (3.5-5.1)
[2021-08-28 07:20] LABS: CREATININE 7.8 mg/dL (0.6-1.3)
--- NOTE | 2021-08-28 07:30 | NUR ---
MS RN OPENING NOTES PATIENT SITTING ON BEDSIDE, DROWSING INTERMITTENTLY. RESPONSIVE TO VERBAL AND TACTILE STIMULI. A/O X4. NO ACUTE DISTRESS NOTED. STABLE ON ROOM AIR. NO C/O OF PAIN OR DISCOMFORT. HAS SALBADOR IV ACCESS #18G. NO FLUIDS RUNNING AT THIS TIME. SAFETY PRECAUTIONS IN PLACED: BED LOW AND LOCKED, SIDE RAILS UP X2, CALL LIGHT WITHIN REACH. WILL CONTINUE PLAN OF CARE.
--- NOTE | 2021-08-28 07:39 | NUR ---
RN CLOSING REPORT GIVEN TO ZORAIDA FOR CONTINUITY OF CARE
[2021-08-28] MEDS: CALCIUM ACETATE 667 MG CAP/TAB PO SCH ×3 (08:13→17:30)
[2021-08-28] MEDS: QUETIAPINE FUMARATE 100 MG TABLET PO SCH ×2 (08:13→17:30)
[2021-08-28] MEDS: MONTELUKAST SODIUM (10MG) 10 MG TABLET PO SCH (08:13)
[2021-08-28] MEDS: GABAPENTIN 100 MG CAPSULE PO SCH ×3 (08:13→17:31)
[2021-08-28] MEDS: PANTOPRAZOLE 40 MG TABLET.DR PO SCH (08:14)
[2021-08-28] MEDS: CALCITRIOL 0.25 MCG CAPSULE PO SCH (08:14)
[2021-08-28] MEDS: TOPIRAMATE 100 MG TABLET PO SCH ×2 (08:14→21:56)
[2021-08-28] MEDS: SEVELAMER CARBONATE 800 MG TABLET PO SCH ×3 (08:14→17:30)
[2021-08-28] MEDS: LEVOTHYROXINE SODIUM 25 MCG TABLET PO SCH (08:25)
[2021-08-28] MEDS: DOXAZOSIN MESYLATE (4 MG) 4 MG TABLET PO SCH (09:11)
[2021-08-28] MEDS: NIFEdipine XL (30MG) 30 MG TAB PO SCH (09:12)
[2021-08-28] MEDS: CARVEDILOL 12.5 MG TABLET PO SCH ×2 (09:12→17:32)
[2021-08-28] MEDS: hydrALAZINE HCL 50 MG TABLET PO SCH ×3 (09:13→17:31)
--- NOTE | 2021-08-28 18:34 | NUR ---
MS RN CLOSING NOTES PATIENT SITTING ON BED, LETHARGIC. EASY TO AROUSE. A/O X4. C/O PAIN ON LEFT CHEST 8/10 IN THE AM. C/O PAIN ON LEFT NECK 9/10 IN THE AFTERNOON. PRN PAIN MED GIVEN, REASSESSED AND EFFECTIVE. PATIENT VERBALIZE SHE WILL NEED A STRONGER DOSE SINCE PAIN IS NOT RELIEVED MUCH BEFORE. HAS SALBADOR IV ACCESS #18G AND SALINE LOCKED. NO FLUIDS RUNNING AT THIS TIME. ALL NEEDS ATTENDED. KEPT DRY AND COMFORTABLE. SAFETY PRECAUTIONS IN PLACED: BED LOW AND LOCKED, SIDE RAILS UP X2, CALL LIGHT WITHIN REACH.
--- NOTE | 2021-08-28 19:25 | NUR ---
MS RN OPENING NOTES RECEIVED PATIENT AWAKE LAYING IN BED. A/O X4. PATIENT WITH REGULAR AND UNLABORED BREATHING ON ROOM AIR, TOLERATED WELL. NO SIGNS AND SYMPTOMS OF DISTRESS NOTED. NO COMPLAINS OF PAIN OR DISCOMFORT AT THIS TIME. AV SHUNT ON LEFT UPPER ARM INTACT. IV ACCESS SALBADOR Smiley #18 SL. IV ACCESS PATENT AND INTACT. SAFETY PRECAUTIONS ENFORCED WITH BED LOCKED AND AT LOWEST POSITION. CALL LIGHT WITHIN REACH AT ALL TIMES WILL CONTINUE TO MONITOR PATIENT.
[2021-08-28 20:00] VITALS: BP 165/96
--- NOTE | 2021-08-28 20:00 | NUR ---
MS RN NOTES CALL FROM [facility] SPOKE TO REGARDING UPDATE ON PATIENT. FAX NUMBER [phone]. WILL CONTINUE TO MONITOR PATIENT.
--- NOTE | 2021-08-28 22:00 | NUR ---
MS RN NOTES CALL CAME FROM [facility] TRANSFER SPOKE TO TEJ REGARDING UPDATE ON PATIENT CALL BACK NUMBER IS [phone]. WILL CONTINUE TO MONITOR PATIENT.
[2021-08-29] MEDS: HYDROMORPHONE INJ 2 MG/ML DISP.SYRIN IV PRN ×4 (05:32→22:18)
[2021-08-29 06:48] LABS: BASOPHILS % (AUTO) 0.7 % (0.0-2.0); EOSINOPHILS % (AUTO) 8.3 % (0.0-6.0); HEMATOCRIT 24 % (33-45); HEMOGLOBIN 7.9 g/dL (11.5-14.8); LYMPHOCYTES # (AUTO) 0.3 K/uL (0.8-4.8); LYMPHOCYTES % (AUTO) 9.1 % (20.0-44.0); MEAN CORPUSCULAR HGB CONC 34 g/dl (31.0-36.0); MEAN CORPUSCULAR VOLUME 100 fL (82-100); MONOCYTES # (AUTO) 0.5 K/uL (0.1-1.30); MONOCYTES % (AUTO) 14.5 % (2.0-12.0); NEUTROPHILS # (AUTO) 2.2 K/uL (1.8-8.9); NEUTROPHILS % (AUTO) 67.4 % (43.0-81.0); PLATELET COUNT (AUTO) 73 K/uL (150-450); RED BLOOD CELL COUNT(AUTO) 2.37 MIL/uL (4.0-5.2); WHITE BLOOD COUNT (AUTO) 3.3 K/uL (4.3-11.0)
--- NOTE | 2021-08-29 06:50 | NUR ---
SHUTTLE FINAL INSPECTOR CLOSING NOTES PATIENT STILL AWAKE LAYING IN BED. A/O X4. PATIENT WITH REGULAR AND UNLABORED BREATHING ON ROOM AIR, TOLERATED WELL. NO SIGNS AND SYMPTOMS OF DISTRESS NOTED. NO COMPLAINS OF PAIN OR DISCOMFORT AT THIS TIME. AV SHUNT ON LEFT UPPER ARM INTACT. IV ACCESS SALBADOR Smiley #18 SL. IV ACCESS PATENT AND INTACT. SAFETY PRECAUTIONS ENFORCED WITH BED LOCKED AND AT LOWEST POSITION. CALL LIGHT WITHIN REACH AT ALL TIMES WILL ENDORSE CONTINUITY OF CARE TO DAY SHIFT NURSE.
[2021-08-29 07:08] LABS: CALCIUM, SERUM 8.6 mg/dL (8.5-10.1)
[2021-08-29 07:17] LABS: CREATININE 9.9 mg/dL (0.6-1.3); POTASSIUM 6.3 mmol/L (3.5-5.1)
--- NOTE | 2021-08-29 07:20 | NUR ---
Received a call from laboratory, regarding patients Potassium level which resulted to 6.3 and Creatinine which resulted to 9.9, hospitalist made aware of the levels and acknowledged, patient will have dialysis session today 08/29/21, no palpitation, no chest pain, no dizziness at this time, no apparent distress noted, patient seen comfortably lying in bed, will continue to monitor for any changes.
--- NOTE | 2021-08-29 07:20 | NUR ---
Received a call from laboratory, regarding patients Potassium level which resulted to 6.3, hospitalist made aware of the Potassium level and acknowledged, patient will have dialysis session today 08/29/21, no palpitation, no chest pain, no dizziness at this time, no apparent distress noted, patient seen comfortably lying in bed, will continue to monitor for any changes.
--- NOTE | 2021-08-29 07:41 | NUR ---
RN OPENING NOTES Patient seen comfortably lying in bed, no SOB, no apparent distress noted, breathing even and unlabored, denies any pain or discomfort at this time, no grimacing. Call light left within reach, safety precautions in place, brakes locked, side rails up X 2, will monitor closely for any changes.
[2021-08-29 08:00] VITALS: BP 176/106
[2021-08-29] MEDS: SEVELAMER CARBONATE 800 MG TABLET PO SCH ×3 (08:27→18:00)
[2021-08-29] MEDS: PANTOPRAZOLE 40 MG TABLET.DR PO SCH (08:27)
[2021-08-29] MEDS: GABAPENTIN 100 MG CAPSULE PO SCH ×3 (08:27→17:00)
[2021-08-29] MEDS: QUETIAPINE FUMARATE 100 MG TABLET PO SCH ×2 (08:27→17:00)
[2021-08-29] MEDS: MONTELUKAST SODIUM (10MG) 10 MG TABLET PO SCH (08:27)
[2021-08-29] MEDS: CALCIUM ACETATE 667 MG CAP/TAB PO SCH ×3 (08:27→18:00)
[2021-08-29] MEDS: TOPIRAMATE 100 MG TABLET PO SCH ×2 (08:29→20:17)
[2021-08-29] MEDS: LEVOTHYROXINE SODIUM 25 MCG TABLET PO SCH (08:29)
[2021-08-29] MEDS: DOXAZOSIN MESYLATE (4 MG) 4 MG TABLET PO SCH (08:29)
[2021-08-29] MEDS: CALCITRIOL 0.25 MCG CAPSULE PO SCH (08:29)
[2021-08-29] MEDS: NIFEdipine XL (30MG) 30 MG TAB PO SCH (09:35)
[2021-08-29] MEDS: CARVEDILOL 12.5 MG TABLET PO SCH ×2 (09:35→17:00)
[2021-08-29] MEDS: hydrALAZINE HCL 50 MG TABLET PO SCH ×3 (09:35→17:00)
[2021-08-29] MEDS: MUPIROCIN OINT 2% 22 GM TUBE NS SCH ×2 (10:10→20:17)
--- NOTE | 2021-08-29 14:45 | NUR ---
Patient seen comfortably lying in bed, denies any pain or discomfort at this time, no nausea and vomiting. Patient is currently having her dialysis session and suddenly stated that she wants to sign the paper, patient was asked what paper she's referring to and she said "AMA paper" so I can get out of here. "I'm tired of this place and I wanna go home. I will take the bus and go home", patient added. Health education provided to patient, plan of care stated to patient, explained risks and benefits to patient thrice, however patient still prefers to leave the hospital. Hospitalist and charge nurse made aware of the situation, patient sign AMA form and inventory list, belongings complete. Patient alert, oriented X 4, able to make needs known and can follow commands. Instructed patient to follow up with her primary MD and to go in ER in case of the situation. Peripheral IV line and patients identification wristband was removed. Surgical mask given to patient, verbalized gratitude.
--- NOTE | 2021-08-29 14:50 | NUR ---
Patient had dialysis session today with output of 2,000ml, tolerated procedure well, no s/s of hypotension, no change in level of consciousness, no s/s of fluid overload, no shortness of breath, no dizziness, no palpitations. Dialysis site on left upper arm fistula with dry and intact dressing, no bleeding, no unusual drainage, no unusual smell noted, no redness, will monitor closely for any changes.
--- NOTE | 2021-08-29 15:00 | NUR ---
Patient was seen slowly packing her belongings and getting dressed at this time, patient was asked if she needs help with anything and patient was just silent and preferred not to talk or response. Patient looked comfortable, no apparent distress noted.
--- NOTE | 2021-08-29 15:45 | NUR ---
During rounds patient was seen in the bathroom, prefers not to be disturbed at this time. Patient still wants to leave AMA and stated that she is still getting ready and not to chance her, she will leave when she is ready to go she added. Reminded patient that staffs are available if she needs assistance with anything, verbalized understanding and gratitude.
--- NOTE | 2021-08-29 16:30 | NUR ---
Around 1630, patient was seen sitting on a chair in her room with her phone and stated that she is waiting for someone to pick her up, and her friend will arrive shortly.
--- NOTE | 2021-08-29 16:45 | NUR ---
Around 1644, received a phone call from [facility] Anesthesiologist and Dr. Gray asking information regarding patient because they are planning to do a fistulogram for patient. [facility] Anesthesiologist and Dr. Gray made aware that patient signed AMA formed and was just waiting for someone to pick her up from the hospital, charge nurse and RN verified and confirmed with patient regarding patients plan to leave hospital and patient stated that she is just waiting for someone to pick her up.
--- NOTE | 2021-08-29 17:00 | NUR ---
Patient preferred not to take her evening medications and not to have her vital signs check, per patient she is feeling okay, just waiting for someone to get her out of the hospital, health teaching rendered, explained risks and benefits thrice, still strongly refused medications and vital signs check, respected patients wishes, hospitalist made aware.
--- NOTE | 2021-08-29 17:20 | NUR ---
Incoming RN made aware that patient already signed AMA form and just waiting for someone to pick her up. Addendum: 08/29/21 at 2020 by SHANELLE PÉREZ RN WRONG DOCUMENTATION
--- NOTE | 2021-08-29 18:19 | NUR ---
RN CLOSING NOTES Patient seen lying in bed, no SOB, respirations even and unlabored, no apparent distress noted, no dizziness, no palpitations, no chest pain, no nausea, no vomiting. All needs attended, kept clean and dry, call light left within reach, safety precautions in place, frequent visual check rendered, brakes locked, side rails up X 2, will endorse to next shift for continuity of care.
--- NOTE | 2021-08-29 19:21 | NUR ---
Incoming RN made aware that patient already signed AMA form and just waiting for someone to pick her up.
[2021-08-29 20:00] VITALS: BP 171/96
[2021-08-30] MEDS: HYDROMORPHONE INJ 2 MG/ML DISP.SYRIN IV PRN ×2 (02:21→06:34)
[2021-08-30] MEDS: hydrALAZINE HCL 50 MG TABLET PO SCH ×3 (05:27→16:00)
--- NOTE | 2021-08-30 05:27 | NUR ---
BP 180/99 contacted on-call provider. Relayed that patient had refused 1pm and 5pm hydralazine day prior and that next dose is 0900. Per provider okay to give 0900 dose early NOW.
[2021-08-30] MEDS: LEVOTHYROXINE SODIUM 25 MCG TABLET PO SCH (06:34)
[2021-08-30] MEDS: PANTOPRAZOLE 40 MG TABLET.DR PO SCH (06:34)
--- NOTE | 2021-08-30 06:34 | NUR ---
B/P went down to 161/92
[2021-08-30 06:42] VITALS: BP 161/92
--- NOTE | 2021-08-30 07:00 | NUR ---
MS RN OPENING NOTES PATIENT A/O X 4, LAYING IN BED, TOLERATING WELL ON ROOM AIR WITH NO S/S OF DISTRESS AT THIS TIME. 22 G SALBADOR SL INTACT AND FLUSHING WELL. SAFETY MEASURES IN PLACE: BED IN LOWEST LOCKED POSITION, SIDE RAILS UP X 2, CALL LIGHT WITHIN REACH. PATIENT STATED SHE COULD NOT GET AHOLD OF HER TRANSPORT CONTACT TODAY AND WILL NOT BE ABLE TO LEAVE AMA AT THIS TIME. WILL CONTINUE TO MONITOR.
--- NOTE | 2021-08-30 07:05 | NUR ---
RN CLOSING NOTES Patient cooperative with VS and medication overnight, but is still determined that she will be leaving in the morning. Time is unknown yet. Currently awake in bed, hardly got any sleep, but A&Ox4, and in no signs of cardiac or respiratory distress.
[2021-08-30] MEDS: CALCIUM ACETATE 667 MG CAP/TAB PO SCH ×3 (07:35→18:00)
[2021-08-30] MEDS: SEVELAMER CARBONATE 800 MG TABLET PO SCH ×3 (07:35→17:00)
[2021-08-30 07:56] LABS: CREATININE 8.6 mg/dL (0.6-1.3)
[2021-08-30 08:09] LABS: BASOPHILS % (AUTO) 0.7 % (0.0-2.0); EOSINOPHILS % (AUTO) 9.5 % (0.0-6.0); HEMATOCRIT 24 % (33-45); LYMPHOCYTES # (AUTO) 0.3 K/uL (0.8-4.8); LYMPHOCYTES % (AUTO) 7.8 % (20.0-44.0); MEAN CORPUSCULAR HGB CONC 34 g/dl (31.0-36.0); MEAN CORPUSCULAR VOLUME 100 fL (82-100); MONOCYTES # (AUTO) 0.5 K/uL (0.1-1.30); MONOCYTES % (AUTO) 13.6 % (2.0-12.0); NEUTROPHILS # (AUTO) 2.6 K/uL (1.8-8.9); NEUTROPHILS % (AUTO) 68.4 % (43.0-81.0); PLATELET COUNT (AUTO) 84 K/uL (150-450); RED BLOOD CELL COUNT(AUTO) 2.39 MIL/uL (4.0-5.2); WHITE BLOOD COUNT (AUTO) 3.8 K/uL (4.3-11.0)
[2021-08-30] MEDS: GABAPENTIN 100 MG CAPSULE PO SCH ×3 (08:33→17:00)
[2021-08-30] MEDS: CARVEDILOL 12.5 MG TABLET PO SCH ×2 (08:34→16:00)
[2021-08-30] MEDS: DOXAZOSIN MESYLATE (4 MG) 4 MG TABLET PO SCH (08:34)
[2021-08-30] MEDS: CALCITRIOL 0.25 MCG CAPSULE PO SCH (08:36)
[2021-08-30] MEDS: NIFEdipine XL (30MG) 30 MG TAB PO SCH (08:36)
[2021-08-30] MEDS: TOPIRAMATE 100 MG TABLET PO SCH ×2 (08:36→21:25)
[2021-08-30] MEDS: MONTELUKAST SODIUM (10MG) 10 MG TABLET PO SCH (08:36)
[2021-08-30] MEDS: QUETIAPINE FUMARATE 100 MG TABLET PO SCH ×2 (08:36→16:58)
[2021-08-30] MEDS: MUPIROCIN OINT 2% 22 GM TUBE NS SCH ×2 (08:54→21:25)
--- NOTE | 2021-08-30 09:00 | NUR ---
MS RN NOTES PATIENT WITH POTASSIUM LAB 6.0 FROM 6.3 YESTERDAY, CONTACTED AND STATED PATIENT SHOULD NOT LEAVE HOSPITAL AMA AND SHOULD RECEIVE DIALYSIS. MD STATED HE WOULD TALK TO PATIENT TODAY.
[2021-08-30] MEDS: HYDROMORPHONE 1 MG/1 ML DISP.SYRIN IV PRN ×3 (12:44→23:49)
--- NOTE | 2021-08-30 12:52 | NUR ---
MS STREET NOTES PATIENT COMPLAINT OF 02/22 LEFT SHOULDER PAIN AND REQUESTING MEDICATION. PRN HYDROMORPHONE 2 MG IVP ADMINISTERED ORDERED. WILL CONTINUE TO MONITOR S/S OF PAIN. PATIENT ALSO AWARE THAT SHE IS TO RECEIVE DIALYSIS AGAIN TODAY AND AGREED TO TREATMENT. Addendum: 08/30/21 at 1256 by ORA HAMILTON RN CORRECTION- 1 MG IVP HYDROMORPHONE ADMINISTERED ORDERED
--- NOTE | 2021-08-30 13:12 | NUR ---
MS RN NOTES 1300 HYDRALAZINE MEDICATION HELD DUE TO PATIENT TO RECEIVE DIALYSIS TODAY.
[2021-08-30 16:21] VITALS: BP 134/76
[2021-08-30] MEDS: diphenhydrAMINE HCL 50 MG/ML VIAL IV PRN (16:58)
--- NOTE | 2021-08-30 18:30 | NUR ---
MS RN CLOSING NOTES PATIENT A/O X 4, LAYING IN BED, TOLERATING WELL ON ROOM AIR WITH NO S/S OF DISTRESS AT THIS TIME. 22 G SALBADOR SL INTACT AND FLUSHING WELL. HEMODIALYSIS COMPLETED TODAY WITH 3 L REMOVED. LATEST BP: 148/54, HR 79. SAFETY MEASURES IN PLACE: BED IN LOWEST LOCKED POSITION, SIDE RAILS UP X 2, CALL LIGHT WITHIN REACH. WILL ENDORSE TO FABRIC AWNING REPAIRER FOR FRANSICO.
--- NOTE | 2021-08-30 19:31 | NUR ---
MS RN OPENING NOTES: RECEIVED PATIENT SLEEP IN BED COMFORTABLY, AROUSABLE TO VERBAL STIMULI, BED IN LOW POSITION, CALL LIGHTS WITHIN REACH, NO COMPLAIN OF PAIN AND DISCOMFORT AT THIS TIME, ON ROOM AIR NO SOB WAS OBSERVED, PATIENT IS A/OX4 AMBULATORY ABLE TO MAKE NEEDS KNOWN, WITH IV LINE AT SALBADOR#22 SL , WITH KATERIN AVF DIALYSIS DONE TODAY WITH 3LTR OUT, PATIENT KEPT CLEAN AND DRY ALL NEEDS MET WILL CONTINUE TO MONITOR.
[2021-08-30 20:00] VITALS: BP 152/71
[2021-08-30] MEDS ORDERED: ALPRAZOLAM 0.25 MG TABLET PO ONE (21:30)
--- NOTE | 2021-08-31 02:00 | NUR ---
RN NOTES: RECEIVED A CALL FROM ALVINO [phone] OF [facility] STATING THAT THAT DR PADILLA DECLINE THE TRANSFER TO [facility], (VASCULAR FISTULOGRAM) CN MADE AWARE.
[2021-08-31] MEDS: diphenhydrAMINE HCL 50 MG/ML VIAL IV PRN ×3 (02:13→20:09)
--- NOTE | 2021-08-31 02:17 | NUR ---
MR RN NOTES PRN BENEDRYL GIVEN FOR ITCHING. TOLERATED WELL. WILL CONTINUE TO MONITOR.
[2021-08-31] MEDS: HYDROMORPHONE 1 MG/1 ML DISP.SYRIN IV PRN ×5 (04:08→18:30)
[2021-08-31] MEDS: LEVOTHYROXINE SODIUM 25 MCG TABLET PO SCH (06:41)
--- NOTE | 2021-08-31 06:50 | NUR ---
RN CLOSING NOTES: RECEIVED PATIENT SLEEP IN BED COMFORTABLY, AROUSABLE TO VERBAL STIMULI, BED IN LOW POSITION, CALL LIGHTS WITHIN REACH, ON PAIN MANAGEMENT CONTROL PRN MEDICATION GIVEN, PATIENT IS A/O X4 AMBULATORY ABLE TO MAKE NEEDS KNOWN, ON ROOM AIR SATURATING WELL, PATIENT WITH SALBADOR #22 IV LINE SALINE LOCK, WITH HD PORT AT AVF COVERED CLEAN AND DRY, ON SCHEDULE HD TODAY, PATIENT KEPT CLEAN AND DRY ALL NEEDS MET ENDORSE TO INCOMING SHIFT.
--- NOTE | 2021-08-31 07:00 | NUR ---
MS RN OPENING NOTES RECEIVED PATIENT IN BED A/O X 4, SALBADOR 22G SL CLEAN, INTACT AND FLUSHING WELL. KATERIN SHUNT COVERED, CLEAN AND DRY, WITH THRILL AND BRUIT NOTED. SAFETY MEASURES IN PLACE: BED IN LOWEST LOCKED POSITION, SIDE RAILS UP X 2, CALL LIGHT WITHIN REACH. WILL CONTINUE TO MONITOR.
--- NOTE | 2021-08-31 07:20 | NUR ---
MS RN NOTE MD MADE AWARE OF PATIENT HIGH BLOOD PRESSURE THIS MORNING. AWAITING ANY FURTHER ORDERS FROM MD.
[2021-08-31] MEDS: SEVELAMER CARBONATE 800 MG TABLET PO SCH ×3 (07:40→17:15)
[2021-08-31] MEDS: CALCIUM ACETATE 667 MG CAP/TAB PO SCH ×3 (07:40→17:15)
[2021-08-31] MEDS: PANTOPRAZOLE 40 MG TABLET.DR PO SCH (07:40)
--- NOTE | 2021-08-31 07:41 | NUR ---
MS RN NOTES PATIENT COMPLAINT OF 9/10 LEFT SHOULDER PAIN AND REQUESTING PAIN MEDICATION. 1 MG HYDROMORPHONE IVP ADMINISTERED ORDERED. WILL CONTINUE TO MONITOR FOR S/S OF PAIN.
[2021-08-31 08:00] VITALS: BP 189/120
[2021-08-31] MEDS: hydrALAZINE HCL 50 MG TABLET PO SCH ×3 (08:36→16:11)
[2021-08-31] MEDS: TOPIRAMATE 100 MG TABLET PO SCH ×2 (08:37→21:26)
[2021-08-31] MEDS: GABAPENTIN 100 MG CAPSULE PO SCH ×3 (08:37→16:01)
[2021-08-31] MEDS: MONTELUKAST SODIUM (10MG) 10 MG TABLET PO SCH (08:37)
[2021-08-31] MEDS: CARVEDILOL 12.5 MG TABLET PO SCH ×2 (08:37→16:11)
[2021-08-31] MEDS: DOXAZOSIN MESYLATE (4 MG) 4 MG TABLET PO SCH (08:38)
[2021-08-31] MEDS: NIFEdipine XL (30MG) 30 MG TAB PO SCH (08:38)
[2021-08-31] MEDS: QUETIAPINE FUMARATE 100 MG TABLET PO SCH ×2 (08:39→16:01)
[2021-08-31] MEDS: CALCITRIOL 0.25 MCG CAPSULE PO SCH (08:39)
[2021-08-31] MEDS: MUPIROCIN OINT 2% 22 GM TUBE NS SCH ×2 (08:40→21:27)
--- NOTE | 2021-08-31 12:29 | NUR ---
MS RN NOTES PATIENT COMPLAINT OF 9/10 R SHOULDER PAIN WELL ITCHING AND REQUESTING MEDICATION. 1 MG PRN HYDROMORPHONE IVP AND 25 MG BENADRYL IVP ADMINISTERED ORDERED. WILL CONTINUE TO MONITOR FOR S/S OF PAIN AND ITCHING.
[2021-08-31 15:26] LABS: BASOPHILS % (AUTO) 0.9 % (0.0-2.0); EOSINOPHILS % (AUTO) 9.6 % (0.0-6.0); HEMATOCRIT 25 % (33-45); LYMPHOCYTES # (AUTO) 0.3 K/uL (0.8-4.8); LYMPHOCYTES % (AUTO) 9.9 % (20.0-44.0); MEAN CORPUSCULAR HGB CONC 33 g/dl (31.0-36.0); MEAN CORPUSCULAR VOLUME 101 fL (82-100); MONOCYTES # (AUTO) 0.5 K/uL (0.1-1.30); MONOCYTES % (AUTO) 15.3 % (2.0-12.0); NEUTROPHILS # (AUTO) 1.9 K/uL (1.8-8.9); NEUTROPHILS % (AUTO) 64.3 % (43.0-81.0); PLATELET COUNT (AUTO) 80 K/uL (150-450); RED BLOOD CELL COUNT(AUTO) 2.43 MIL/uL (4.0-5.2)
[2021-08-31 15:30] LABS: CALCIUM, SERUM 8.8 mg/dL (8.5-10.1); CREATININE 7.3 mg/dL (0.6-1.3); POTASSIUM 5.4 mmol/L (3.5-5.1)
[2021-08-31 16:00] VITALS: BP 158/110
--- NOTE | 2021-08-31 16:07 | NUR ---
MS RN NOTES PATIENT COMPLAINT OF 9/10 R SHOULDER PAIN AND REQUESTING MEDICATION. 1 MG PRN HYDROMORPHONE IVP ADMINISTERED ORDERED. WILL CONTINUE TO MONITOR FOR S/S OF PAIN.
[2021-08-31 16:36] LABS: EOSINOPHILS % (MANUAL) 7 % (0-4); LYMPHOCYTES % (MANUAL) 19 % (16-48); MONOCYTES % (MANUAL) 15 % (0-11.0); NEUTROPHILS % (MANUAL) 59 (42-76)
--- NOTE | 2021-08-31 18:32 | NUR ---
MS RN NOTES PATIENT COMPLAINT OF ACUTE 10/10 LOWER STOMACH PAIN DURING DIALYSIS AFTER 1.5 L REMOVED. DIALYSIS HALTED BY DIALYSIS NURSE, AND PATIENT REQUESTED PRN PAIN MEDICATION. 1 MG PRN HYDROMORPHONE IVP ADMINISTERED ORDERED. WILL CONTINUE TO MONITOR FOR S/S OF PAIN.
--- NOTE | 2021-08-31 18:35 | NUR ---
MS RN CLOSING NOTES PATIENT IN BED A/O X 4, TOLERATING WELL ON ROOM AIR. BREATHING EVEN AND UNLABORED, NO S/S OF RESPIRATORY DISTRESS NOTED AT THIS TIME. SALBADOR 22G SL CLEAN, INTACT AND FLUSHING WELL. KATERIN SHUNT COVERED, CLEAN AND DRY, WITH THRILL AND BRUIT NOTED. ALL NEEDS MET. SAFETY MEASURES IN PLACE: BED IN LOWEST LOCKED POSITION, SIDE RAILS UP X 2, CALL LIGHT WITHIN REACH. WILL ENDORSE TO INDUSTRIAL TRUCK DRIVER FOR FRANSICO.
[2021-08-31 20:00] VITALS: BP 153/89
[2021-09-01] MEDS: HYDROMORPHONE 1 MG/1 ML DISP.SYRIN IV PRN ×4 (00:20→16:18)
[2021-09-01] MEDS: diphenhydrAMINE HCL 50 MG/ML VIAL IV PRN ×3 (03:03→18:30)
--- NOTE | 2021-09-01 06:20 | NUR ---
MS RN NOTES PT STATED SHE FELL WHILE SHE WAS IN BED. ASKED PT WHY SHE DIDN'T CALL FOR HELP AND IF SOMEBODY WITNESSED IT. PER PT, NOBODY WITNESSED IT AND SAYS SHE'S AMBULATING OK. DENIES ANY PAIN OR DISCOMFORT AT THIS TIME. ROM OK. ABLE TO MOVE ALL EXTREMITIES OK. PER CANE LOADER, PT WAS SLEEPING THE WHOLE NIGHT. NOTIFIED DULL COAT MILL OPERATOR. WILL CONTINUE TO MONITOR.
--- NOTE | 2021-09-01 06:53 | NUR ---
MS RN NOTES AWAKE & RESPONSIVE. NOT IN ANY DISTRESS. NO SOB NOTED. DENIES ANY PAIN OR DISCOMFORT AT THIS TIME. WITH IV-HL PATENT & INTACT. MONITORED ACCORDINGLY. CALL LIGHT WITHIN REACH. BED IN LOWEST POSITION. SR UP X 3 WITH BED ALARM ON FOR SAFETY. WILL ENDORSE TO NEXT SHIFT.
--- NOTE | 2021-09-01 07:00 | NUR ---
MS RN OPENING NOTES PATIENT IN BED A/O X 4, TOLERATING WELL ON ROOM AIR. BREATHING EVEN AND UNLABORED, NO S/S OF RESPIRATORY DISTRESS NOTED AT THIS TIME. SALBADOR 22G SL CLEAN, INTACT AND FLUSHING WELL. KATERIN SHUNT COVERED, CLEAN AND DRY, WITH THRILL AND BRUIT NOTED. ALL NEEDS MET. SAFETY MEASURES IN PLACE: BED IN LOWEST LOCKED POSITION, SIDE RAILS UP X 2, CALL LIGHT WITHIN REACH. WILL CONTINUE TO MONITOR.
[2021-09-01] MEDS: LEVOTHYROXINE SODIUM 25 MCG TABLET PO SCH (07:18)
[2021-09-01] MEDS: CALCIUM ACETATE 667 MG CAP/TAB PO SCH ×3 (07:18→18:30)
[2021-09-01] MEDS: PANTOPRAZOLE 40 MG TABLET.DR PO SCH (07:18)
[2021-09-01] MEDS: SEVELAMER CARBONATE 800 MG TABLET PO SCH ×3 (07:18→18:30)
[2021-09-01 08:00] VITALS: BP 184/75
--- NOTE | 2021-09-01 08:15 | NUR ---
MS RN NOTES SPOKE WITH MD REGARDING PATIENT SWOLLEN FACE AND PATIENT ALLERGY TO HYDROMORPHONE, MD STATED OK TO CONTINUE ADMINISTERING HYDROCODONE PRN FOR PAIN MANAGEMENT.
[2021-09-01] MEDS: DOXAZOSIN MESYLATE (4 MG) 4 MG TABLET PO SCH (09:00)
[2021-09-01] MEDS: hydrALAZINE HCL 50 MG TABLET PO SCH ×3 (09:00→16:16)
[2021-09-01] MEDS: GABAPENTIN 100 MG CAPSULE PO SCH ×3 (09:00→16:17)
[2021-09-01] MEDS: NIFEdipine XL (30MG) 30 MG TAB PO SCH (09:00)
[2021-09-01] MEDS: CARVEDILOL 12.5 MG TABLET PO SCH ×2 (09:00→16:17)
[2021-09-01] MEDS: MONTELUKAST SODIUM (10MG) 10 MG TABLET PO SCH (09:01)
[2021-09-01] MEDS: TOPIRAMATE 100 MG TABLET PO SCH ×2 (09:02→20:48)
[2021-09-01] MEDS: QUETIAPINE FUMARATE 100 MG TABLET PO SCH ×2 (09:02→16:17)
[2021-09-01] MEDS: CALCITRIOL 0.25 MCG CAPSULE PO SCH (09:02)
[2021-09-01] MEDS: MUPIROCIN OINT 2% 22 GM TUBE NS SCH ×2 (09:05→20:52)
[2021-09-01] MEDS ORDERED: SODIUM POLYSTYRENE SULFONATE 15 G/60 ML BOTTLE PO ONE (09:30)
--- NOTE | 2021-09-01 10:03 | NUR ---
MS RN NOTES PATIENT COMPLAINT OF ITCHING AND REQUESTING MEDICATION. PRN BENADRYL 1 MG IVP ADMINISTERED ORDERED. WILL CONTINUE TO MONITOR FOR S/S OF ITCHING.
--- NOTE | 2021-09-01 10:08 | NUR ---
MS RN NOTES PATIENT COMPLETED BOWEL MOVEMENT AND STOOL SAMPLE PLACED INTO STERILE SPECIMEN CONTAINER FOR OCCULT BLOOD TEST, AND CONTAINER PLACED IN UNIT REFRIGERATOR. LAB MADE AWARE.
[2021-09-01 11:03] LABS: CALCIUM, SERUM 8.5 mg/dL (8.5-10.1); CREATININE 5.8 mg/dL (0.6-1.3); POTASSIUM 4.9 mmol/L (3.5-5.1)
[2021-09-01 11:07] LABS: BASOPHILS % (AUTO) 1.1 % (0.0-2.0); EOSINOPHILS % (AUTO) 10.8 % (0.0-6.0); HEMATOCRIT 22 % (33-45); HEMOGLOBIN 7.4 g/dL (11.5-14.8); LYMPHOCYTES # (AUTO) 0.3 K/uL (0.8-4.8); LYMPHOCYTES % (AUTO) 12.7 % (20.0-44.0); MEAN CORPUSCULAR HGB CONC 34 g/dl (31.0-36.0); MEAN CORPUSCULAR VOLUME 98 fL (82-100); MONOCYTES # (AUTO) 0.3 K/uL (0.1-1.30); MONOCYTES % (AUTO) 12.3 % (2.0-12.0); NEUTROPHILS # (AUTO) 1.5 K/uL (1.8-8.9); NEUTROPHILS % (AUTO) 63.1 % (43.0-81.0); PLATELET COUNT (AUTO) 76 K/uL (150-450); RED BLOOD CELL COUNT(AUTO) 2.24 MIL/uL (4.0-5.2); WHITE BLOOD COUNT (AUTO) 2.4 K/uL (4.3-11.0)
[2021-09-01 14:21] LABS: OCCULT BLOOD STOOL NEGATIVE (NEGATIVE)
--- NOTE | 2021-09-01 16:24 | NUR ---
MS RN NOTES PATIENT COMPLAINT OF 9/10 SHOULDER PAIN AND REQUESTING MEDICATION. PRN 1 MG HYDROMORPHONE IVP ADMINISTERED ORDERED. WILL CONTINUE TO MONITOR FOR S/S OF PAIN.
--- NOTE | 2021-09-01 18:30 | NUR ---
MS RN CLOSING NOTES PATIENT IN BED A/O X 4, TOLERATING WELL ON ROOM AIR. BREATHING EVEN AND UNLABORED, NO S/S OF RESPIRATORY DISTRESS NOTED AT THIS TIME. SALBADOR 22G SL CLEAN, INTACT AND FLUSHING WELL. KATERIN SHUNT COVERED, CLEAN AND DRY, WITH THRILL AND BRUIT NOTED. ALL NEEDS MET. SAFETY MEASURES IN PLACE: BED IN LOWEST LOCKED POSITION, SIDE RAILS UP X 2, CALL LIGHT WITHIN REACH. WILL ENDORSE TO TOLL OPERATOR FOR FRANSICO.
--- NOTE | 2021-09-01 19:40 | NUR ---
MS STREET OPENING NOTES RECEIVED PATIENT ON BED; AWAKE, ALERT, RESPONSIVE AND ORIENTED X 4. ON ROOM AIR, TOLERATING WELL. NO SHORTNESS OF BREATH NOTED. NOT IN ANY FORM OF DISTRESS. WITH IV ACCESS AT RIGHT UPPER ARM G22; DRY, PATENT AND INTACT. WITH LEFT UPPER ARM FISTULA, PATENT AND INTACT. NEEDS ATTENDED. CALL LIGHT AND TABLE WITHIN REACH. SIDE RAILS UP X 2. BED PLACED IN LOWEST LOCKED POSITION. SAFETY MEASURES IN PLACED. WILL CONTINUE TO MONITOR. Addendum: 09/02/21 at 0603 by SHELTON JULIAN RN DISREGARD FISTULA NOTES PATENT AND INTACT. LEFT UPPER ARM DRESSING; C/D/I
[2021-09-01 20:11] VITALS: BP 161/125
--- NOTE | 2021-09-01 20:30 | NUR ---
MS RN NOTES DR ARNOLD CALLED; PATIENT WILL GO TO FISTULOGRAM WITH POSSIBLE ANGIOPLASTY AND STENT. PATIENT MADE AWARE. PATIENT CONSENTED. WILL KEEP NPO POST MIDNIGHT.
--- NOTE | 2021-09-02 00:10 | NUR ---
MS RN NOTES PATIENT REFUSED TO TAKE PICTURES; EXPLAINED TO THE PATIENT THE IMPORTANCE OF WOUND MONITORING IN HER PLAN OF CARE; PATIENT STILL REFUSED. WILL TRY TO TAKE PICTURE IN THE MORNING PER PATIENT
--- NOTE | 2021-09-02 02:05 | NUR ---
MS RN NOTES PATIENT COMPLAINED OF LEFT SHOULDER AND LOWER BACK PAINS WITH PAIN SCALE OF 9/10; PRN MED HYDROMORPHONE DILAUDID 1 ML GIVEN VIA IV ORDERED.
[2021-09-02] MEDS: HYDROMORPHONE 1 MG/1 ML DISP.SYRIN IV PRN ×4 (02:12→23:30)
[2021-09-02] MEDS: diphenhydrAMINE HCL 50 MG/ML VIAL IV PRN ×3 (02:21→19:48)
--- NOTE | 2021-09-02 06:50 | NUR ---
MS RN CLOSING NOTES PATIENT IS ON BED, AWAKE, ALERT AND ORIENTED X 4. DENIES ANY PAIN. NO SOB NOTED. NOT IN ANY FORM OF DISTRESS. WITH IV ACCESS ON SALBADOR G22; SALINE LOCKED; DRY, PATENT AND INTACT. CALL LIGHT AND TABLE WITHIN REACH. SIDE RAILS UP X 2. BED IN LOWEST LOCKED POSITION. SAFETY MEASURES IN PLACED. WILL ENDORSED TO NEXT SHIFT.
--- NOTE | 2021-09-02 07:30 | NUR ---
MS RN OPENING NOTES RECEIVED PATIENT SITTING ON BED AWAKE AND A/O X4. ON ROOM AIR TOLERATING WELL. NO SOB NOTED. NOT IN DISTRESS. WITH NO COMPLAINTS OF PAIN OR DISCOMFORT AT THIS TIME. WITH IV ACCESS AT RIGHT UPPER ARM G22 SALINE LOCKED, PATENT AND INTACT. WITH LEFT UPPER ARM AV FISTULA FOR HEMODIALYSIS. ON NPO FOR FISTULOGRAM WITH POSSIBLE ANGIOGRAPHY OR STENT. SAFETY MEASURES IN PLACED. CALL LIGHT WITHIN REACH. BED ON LOWEST LOCKED POSITION, SIDE RAILS UP X2. WILL CONTINUE TO MONITOR.
[2021-09-02 08:00] VITALS: BP 157/98
[2021-09-02] MEDS: NIFEdipine XL (30MG) 30 MG TAB PO SCH (08:24)
[2021-09-02] MEDS: hydrALAZINE HCL 50 MG TABLET PO SCH ×3 (08:25→16:05)
[2021-09-02] MEDS: SEVELAMER CARBONATE 800 MG TABLET PO SCH ×3 (08:25→17:25)
[2021-09-02] MEDS: CALCIUM ACETATE 667 MG CAP/TAB PO SCH ×3 (08:25→17:25)
[2021-09-02] MEDS: QUETIAPINE FUMARATE 100 MG TABLET PO SCH ×2 (08:25→16:05)
[2021-09-02] MEDS: CARVEDILOL 12.5 MG TABLET PO SCH ×2 (08:25→16:04)
[2021-09-02] MEDS: CALCITRIOL 0.25 MCG CAPSULE PO SCH (08:25)
[2021-09-02] MEDS: TOPIRAMATE 100 MG TABLET PO SCH ×2 (08:26→21:38)
[2021-09-02] MEDS: MONTELUKAST SODIUM (10MG) 10 MG TABLET PO SCH (08:26)
[2021-09-02] MEDS: LEVOTHYROXINE SODIUM 25 MCG TABLET PO SCH (08:26)
[2021-09-02] MEDS: DOXAZOSIN MESYLATE (4 MG) 4 MG TABLET PO SCH (08:26)
[2021-09-02] MEDS: GABAPENTIN 100 MG CAPSULE PO SCH ×3 (08:26→16:04)
[2021-09-02] MEDS: PANTOPRAZOLE 40 MG TABLET.DR PO SCH (08:26)
[2021-09-02] MEDS: MUPIROCIN OINT 2% 22 GM TUBE NS SCH ×2 (08:47→21:39)
[2021-09-02 09:13] LABS: BASOPHILS % (AUTO) 0.7 % (0.0-2.0); EOSINOPHILS % (AUTO) 10.1 % (0.0-6.0); HEMATOCRIT 23 % (33-45); HEMOGLOBIN 7.7 g/dL (11.5-14.8); LYMPHOCYTES # (AUTO) 0.4 K/uL (0.8-4.8); LYMPHOCYTES % (AUTO) 11.7 % (20.0-44.0); MEAN CORPUSCULAR HGB CONC 33 g/dl (31.0-36.0); MEAN CORPUSCULAR VOLUME 99 fL (82-100); MONOCYTES # (AUTO) 0.5 K/uL (0.1-1.30); MONOCYTES % (AUTO) 15.8 % (2.0-12.0); NEUTROPHILS # (AUTO) 1.9 K/uL (1.8-8.9); NEUTROPHILS % (AUTO) 61.7 % (43.0-81.0); PLATELET COUNT (AUTO) 89 K/uL (150-450); RED BLOOD CELL COUNT(AUTO) 2.35 MIL/uL (4.0-5.2); WHITE BLOOD COUNT (AUTO) 3.1 K/uL (4.3-11.0)
[2021-09-02 09:41] LABS: CALCIUM, SERUM 9.1 mg/dL (8.5-10.1); CREATININE 6.4 mg/dL (0.6-1.3); POTASSIUM 5.6 mmol/L (3.5-5.1)
[2021-09-02] MEDS ORDERED: KETAMINE HCL (500MG/10ML) 50 MG/ML VIAL ONE (12:58)
[2021-09-02] MEDS ORDERED: MIDAZOLAM HCL 2 MG/2ML VIAL ONE (12:58)
[2021-09-02] MEDS ORDERED: ROCURONIUM BROMIDE 50 MG/5 ML ONE (12:58)
[2021-09-02] MEDS ORDERED: IODIXANOL 320MG/ML 100 ML IV ONE (14:15)
[2021-09-02] MEDS ORDERED: LIDOCAINE HCL/PF 1% 30 ML SDV ONE (14:16)
[2021-09-02] MEDS ORDERED: diphenhydrAMINE HCL 50 MG/ML VIAL ONE (14:50)
[2021-09-02] MEDS ORDERED: HYDROCORTISONE SOD SUCCINATE 100 MG/2 ML VIAL ONE (14:50)
[2021-09-02 16:00] VITALS: BP 137/95
--- NOTE | 2021-09-02 18:40 | NUR ---
MS RN CLOSING NOTES PATIENT RESTING ON BED AND A/O X4. ON ROOM AIR TOLERATING WELL. NO SOB NOTED. NOT IN DISTRESS. WITH NO COMPLAINTS OF PAIN OR DISCOMFORT AT THIS TIME. WITH IV ACCESS AT RIGHT UPPER ARM G22 SALINE LOCKED, PATENT AND INTACT. WITH LEFT UPPER ARM AV FISTULA FOR HEMODIALYSIS. PER DR. ARNOLD, PATIENT'S AV FISTULA IS PATENT AND TO CANNULATE NEAR POSIIBLE TO THE ANTECUBITAL FOSSA TO AVOID THE STENTS. DUE MEDS GIVEN. SAFETY MEASURES IN PLACED. CALL LIGHT WITHIN REACH. BED ON LOWEST LOCKED POSITION, SIDE RAILS UP X2. WILL ENDORSE TO NEXT SHIFT FOR FRANSICO.
--- NOTE | 2021-09-02 19:22 | NUR ---
RN OPENING NOTES RECEIVED PT IN BED, ASLEEP, AWAKENS TO VERBAL STIMULI, DIALYSIS BEGINNING. AOx4, ABLE TO MAKE NEEDS KNOWN. ON RA AND TOLERATING WELL. NO SOB NOTED. NO S/SX OF RESPIRATORY DISTRESS NOTED. IV ACCESS IN SALBADOR #22. IV AND KATERIN AV FISTULA IS INTACT, PATENT, AND FLUSHING WELL. L SAFETY PRECAUTIONS IN PLACE: BED IN LOWEST, LOCKED POSITION, SIDERAILS UPx2, AND BRAKES ON. TABLE AND CALL LIGHT WITHIN REACH. WILL CONTINUE TO MONITOR.
--- NOTE | 2021-09-02 19:54 | NUR ---
ADMINISTERED DILAUDID FOR PAIN PER MD ORDER. VS WNL. WILL CONTINUE TO MONITOR. Addendum: 09/02/21 at 2009 by BRANDIE TAI RN PER DIALYSIS NURSERADHA TO ADMINISTER.
[2021-09-02 20:00] VITALS: BP 125/80
--- NOTE | 2021-09-02 23:00 | NUR ---
DIALYSIS FINISHED. 3 LITERS OUT. WILL CONTINUE TO MONITOR.
--- NOTE | 2021-09-02 23:30 | NUR ---
ADMINISTERED DILAUDID FOR PAIN PER MD ORDER. VS WNL. WILL CONTINUE TO MONITOR.
[2021-09-03] MEDS: diphenhydrAMINE HCL 50 MG/ML VIAL IV PRN ×2 (01:36→08:44)
[2021-09-03] MEDS: HYDROMORPHONE 1 MG/1 ML DISP.SYRIN IV PRN ×2 (03:55→08:44)
--- NOTE | 2021-09-03 03:55 | NUR ---
ADMINISTERED DILAUDID FOR PAIN PER MD ORDER. VS WNL. WILL CONTINUE TO MONITOR.
--- NOTE | 2021-09-03 06:49 | NUR ---
RN CLOSING NOTES PT IN BED, AWAKE ON CELL PHONE. AOx4, ABLE TO MAKE NEEDS KNOWN. ON RA AND TOLERATING WELL. NO SOB NOTED. NO S/SX OF RESPIRATORY DISTRESS NOTED. IV ACCESS IN SALBADOR #22. IV AND KATERIN AV FISTULA IS INTACT, PATENT, AND FLUSHING WELL. ALL NEEDS MET. PT KEPT CLEAN AND DRY. TREATED PAIN THROUGHOUT SHIFT. SAFETY PRECAUTIONS IN PLACE: BED IN LOWEST, LOCKED POSITION, SIDERAILS UPx2, AND BRAKES ON. TABLE AND CALL LIGHT WITHIN REACH. WILL ENDORSE TO ONCOMING SHIFT FOR FRANSICO.
--- NOTE | 2021-09-03 07:30 | NUR ---
RN MS NOTES PT IN BED, AWAKE, ALERT AND ORIENTED, EATING BREAKFAST, NO SIGN OF PAIN OR DISTRESS, CALL LIGHT WITHIN REACH, NEEDS ATTENDED.
[2021-09-03 08:00] VITALS: BP 136/80
[2021-09-03] MEDS: TOPIRAMATE 100 MG TABLET PO SCH (08:37)
[2021-09-03] MEDS: QUETIAPINE FUMARATE 100 MG TABLET PO SCH ×2 (08:38→17:25)
[2021-09-03] MEDS: GABAPENTIN 100 MG CAPSULE PO SCH ×3 (08:38→17:25)
[2021-09-03] MEDS: PANTOPRAZOLE 40 MG TABLET.DR PO SCH (08:38)
[2021-09-03] MEDS: DOXAZOSIN MESYLATE (4 MG) 4 MG TABLET PO SCH (08:40)
[2021-09-03] MEDS: hydrALAZINE HCL 50 MG TABLET PO SCH ×3 (08:41→17:24)
[2021-09-03] MEDS: CALCITRIOL 0.25 MCG CAPSULE PO SCH (08:42)
[2021-09-03] MEDS: SEVELAMER CARBONATE 800 MG TABLET PO SCH ×3 (08:42→17:38)
[2021-09-03] MEDS: CARVEDILOL 12.5 MG TABLET PO SCH ×2 (08:42→17:25)
[2021-09-03] MEDS: CALCIUM ACETATE 667 MG CAP/TAB PO SCH ×3 (08:42→17:38)
[2021-09-03] MEDS: MONTELUKAST SODIUM (10MG) 10 MG TABLET PO SCH (08:42)
[2021-09-03] MEDS: MUPIROCIN OINT 2% 22 GM TUBE NS SCH (08:43)
[2021-09-03] MEDS: NIFEdipine XL (30MG) 30 MG TAB PO SCH (08:43)
[2021-09-03] MEDS: LEVOTHYROXINE SODIUM 25 MCG TABLET PO SCH (08:46)
[2021-09-03] MEDS ORDERED: diphenhydrAMINE HCL 50 MG/ML VIAL IV ONE (12:30)
--- NOTE | 2021-09-03 13:28 | NUR ---
RN NOTE HYDRALAZINE NOT GIVEN WITH ON GOING DIALYSIS
[2021-09-03 16:00] VITALS: BP 123/70
--- NOTE | 2021-09-03 19:00 | NUR ---
RN MS NOTES PT REFUSED PHOTOS TO BE TAKEN OF HER LEFT UPPER ARM WOUND, PT RESTING AND DOES NOT WANT TO BE BOTHERED, NO BLEEDING NOTED TO LEFT UPPER ARM AV FISTULA SITE, DRESSING DRY AND INTACT.
--- NOTE | 2021-09-03 19:00 | NUR ---
RN MS NOTES PT IN BED, ASLEEP, EASY TO AROUSE, COMPLETED HEMODIALYSIS TODAY, 2 LITERS OUTPUT, DISCHARGE ORDER GIVEN BY DR. PABLO, DISCHARGE AND MEDICATION INSTRUCTIONS GIVEN TO PT, VERBALIZED UNDERSTANDING, BELONGINGS ACCOUNTED FOR, PER PT SHE WILL BE PICKED UP BY HER SISTER AT 8PM, ENDORSED TO YENIFER COOK FOR CONTINUITY OF CARE.
[2021-09-03 20:00] VITALS: BP 137/81
--- NOTE | 2021-09-03 20:00 | NUR ---
MS/LINEN ROOM WORKER NOTE PATIENT DISCHARGED TO HOME WITH FAMILY. PATIENTS BROTHER PICKED HER UP AT APPROX. 20:00. PATIENT IS ALERT AND ORIENTED X 4. DENIES PAIN AT THIS TIME. IV REMOVED FROM RIGHT FOREARM WITH MINIMAL DRAINAGE NOTED. PRESSURE DRESSING APPLIED. PATIENT TOLERATED WELL. PATIENT REFUSED WOUND PICTURES TO BE TAKEN PRIOR TO DISCHARGE. VS AT DISCHARGE: BP 137/81 HR 82 RR 18 T 979 O2 SAT 99% ON ROOM AIR. ALL DISCHARGE PAPERWORK SIGNED BY PATIENT. EDUCATION GIVEN PRIOR TO DISCHARGE. ALL BELONGINGS LEFT WITH PATIENT AND PATIENT SIGNED BELONGINGS LIST. ID BAND REMOVED. PATIENT ACCOMPANIED TO LOBBY VIA WHEELCHAIR IN STABLE CONDITION.
== END 2021-09-03 20:07 | disposition home or self-care (01) | DRG 199 ==
LOC: ER 20:41 → ICU 08-24 00:19 → TELE 08-24 15:31 → MED 08-25 09:53
PROVIDERS: ADMIT Nurse Practitioner Family; ATTEND Internal Medicine
PROC: 30233N1 Transfusion of Nonautologous Red Blood Cells into Peripheral Vein, Percutaneous Approach (ICD-10-PCS; 2021-08-24)
PROC: 5A1D70Z Performance of Urinary Filtration, Intermittent, Less than 6 Hours Per Day (ICD-10-PCS; 2021-08-24)
PROC: B51WYZZ Fluoroscopy of Dialysis Shunt/Fistula using Other Contrast (ICD-10-PCS; principal; 2021-09-02)
DX: I16.1 Hypertensive emergency (principal); D61.818 Other pancytopenia; I27.20 Pulmonary hypertension, unspecified; N18.6 End stage renal disease; E83.51 Hypocalcemia; I50.9 Heart failure, unspecified; F25.9 Schizoaffective disorder, unspecified; D63.8 Anemia in other chronic diseases classified elsewhere; F29 Unspecified psychosis not due to a substance or known physiological condition; I82.291 Chronic embolism and thrombosis of other thoracic veins; T78.3XXA Angioneurotic edema, initial encounter; I13.2 Hypertensive heart and chronic kidney disease with heart failure and with stage 5 chronic kidney disease, or end stage renal disease; G40.909 Epilepsy, unspecified, not intractable, without status epilepticus; I48.91 Unspecified atrial fibrillation; E87.5 Hyperkalemia; Z99.2 Dependence on renal dialysis; Z20.822 Contact with and (suspected) exposure to COVID-19; Z79.01 Long term (current) use of anticoagulants; Z86.73 Personal history of transient ischemic attack (TIA), and cerebral infarction without residual deficits; G43.909 Migraine, unspecified, not intractable, without status migrainosus; K21.9 Gastro-esophageal reflux disease without esophagitis; Z91.15 Patient's noncompliance with renal dialysis; G89.4 Chronic pain syndrome; E03.9 Hypothyroidism, unspecified; Z86.718 Personal history of other venous thrombosis and embolism; Z86.711 Personal history of pulmonary embolism; Z90.49 Acquired absence of other specified parts of digestive tract; Z95.828 Presence of other vascular implants and grafts; F32.A Depression, unspecified; Z88.6 Allergy status to analgesic agent; Z88.1 Allergy status to other antibiotic agents; Z91.041 Radiographic dye allergy status; Z91.013 Allergy to seafood; Z88.8 Allergy status to other drugs, medicaments and biological substances; Z91.048 Other nonmedicinal substance allergy status; Z79.51 Long term (current) use of inhaled steroids; Z79.899 Other long term (current) drug therapy; D64.9 Anemia, unspecified; Z91.19 Patient's noncompliance with other medical treatment and regimen; M81.0 Age-related osteoporosis without current pathological fracture; J45.909 Unspecified asthma, uncomplicated
CPT/HCPCS: 20501; 36415; 71045-TC; 80048-TC; 80053-TC; 80061-TC; 80076-TC; 82272-TC; 83540-TC; 83735-TC; 84100-TC; 84443-TC; 84484-TC; 85025-TC; 85610-TC; 85730-TC; 86850-TC; 87081-TC; 90935-TC; A4217; C9803; G0378; J0360; J1170; J1200; J1644; J1720; J2250; J2270; J3490; J7030; J7040; P9016; Q0163; Q9967; U0003

== ENCOUNTER 2021-09-15 01:32 | Inpatient (IN) | payer MEDICAID ==
[~2021-09-15] VITALS: Ht 167.6 cm; Wt 80.3 kg
[~2021-09-15 01:32] MED LIST changes: -ERYT3.5O9 RIGHTEYE
--- NOTE | 2021-09-15 01:48 | NUR ---
BIBS C/O DIFFUSED ABDOMINAL PAIN X FEW HOURS. PATIENT ALERT AND ORIENTED X3. AMBULATORY WITH NON LABORED BREATHING, IN BED 10 ON MONITOR AND POX.
[2021-09-15] MEDS ORDERED: ONDANSETRON HCL/PF 4 MG/2 ML VIAL ONE (01:49)
--- NOTE | 2021-09-15 01:50 | NUR ---
KATERIN HD AV FISTULA NOTED. BRUIT & THRILL NOTED.
[2021-09-15] MEDS ORDERED: ONDANSETRON HCL/PF 4 MG/2 ML VIAL IVP ONE (02:00)
--- NOTE | 2021-09-15 02:10 | NUR ---
RAC #20G S/L; PATENT AND INTACT. BLOOD COLLECTED AND SENT TO LAB
--- NOTE | 2021-09-15 02:15 | NUR ---
PT TAKEN TO CT VIA FELICITAS
[2021-09-15 02:16] LABS: BASOPHILS % (AUTO) 0.2 % (0.0-2.0); EOSINOPHILS % (AUTO) 2.9 % (0.0-6.0); HEMATOCRIT 25 % (33-45); HEMOGLOBIN 8.3 g/dL (11.5-14.8); LYMPHOCYTES # (AUTO) 0.3 K/uL (0.8-4.8); MEAN CORPUSCULAR HGB CONC 34 g/dl (31.0-36.0); MEAN CORPUSCULAR VOLUME 100 fL (82-100); MONOCYTES # (AUTO) 0.5 K/uL (0.1-1.30); MONOCYTES % (AUTO) 7.5 % (2.0-12.0); NEUTROPHILS # (AUTO) 5.7 K/uL (1.8-8.9); NEUTROPHILS % (AUTO) 85.4 % (43.0-81.0); PLATELET COUNT (AUTO) 134 K/uL (150-450); RED BLOOD CELL COUNT(AUTO) 2.47 MIL/uL (4.0-5.2); WHITE BLOOD COUNT (AUTO) 6.7 K/uL (4.3-11.0)
--- NOTE | 2021-09-15 02:23 | NUR ---
PT RETURNED TO ER BED [address]
[2021-09-15 02:32] LABS: ALBUMIN 3.9 g/dL (3.4-5.0); BILIRUBIN,DIRECT 0.1 mg/dL (0.0-0.2); BILIRUBIN,TOTAL 0.4 mg/dL (0.2-1.0); TOTAL PROTEIN, SERUM 7.7 g/dL (6.4-8.2)
--- NOTE | 2021-09-15 02:33 | NUR ---
BUN 9.4 CREA 11.6
[2021-09-15 02:34] LABS: CALCIUM, SERUM 7.5 mg/dL (8.5-10.1); CREATININE 11.6 mg/dL (0.6-1.3); POTASSIUM 5.8 mmol/L (3.5-5.1)
[2021-09-15] MEDS ORDERED: INSULIN REGULAR, HUMAN 100 UNIT/ML 10 ML VIAL IV ONE (03:30)
[2021-09-15] MEDS ORDERED: DEXTROSE 50%-WATER 50 ML DISP.SYRIN IVP ONE (03:30)
[2021-09-15] MEDS ORDERED: DEXTROSE 50%-WATER 50 ML DISP.SYRIN ONE (03:43)
[2021-09-15] MEDS ORDERED: INSULIN REGULAR, HUMAN 100 UNIT/ML 10 ML VIAL ONE (03:44)
--- NOTE | 2021-09-15 03:47 | NUR ---
POC BS 122
--- NOTE | 2021-09-15 04:16 | NUR ---
COVID ANTIGEN SWAB COLLECTED AND SENT TO LAB
[2021-09-15] MEDS ORDERED: MORPHINE SULFATE INJ 2 MG/ML DISP.SYRIN IV ONE (08:00)
[2021-09-15] MEDS ORDERED: MORPHINE SULFATE INJ 2 MG/ML DISP.SYRIN ONE (08:03)
--- NOTE | 2021-09-15 09:12 | NUR ---
[facility] CALLED [facility]HWAY MAINTENANCE WORKER PAGED.
--- NOTE | 2021-09-15 09:33 | NUR ---
HOSPITALIST SPEAKING WITH DR. ALARCON.
[2021-09-15] MEDS ORDERED: IBUPROFEN 400 MG TABLET PO PRN (10:00)
[2021-09-15] MEDS ORDERED: FUROSEMIDE 40 MG/4 ML VIAL IV ONE (10:00)
[2021-09-15] MEDS ORDERED: SODIUM POLYSTYRENE SULFONATE 15 G/60 ML BOTTLE PO ONE (10:00)
[2021-09-15] MEDS: FUROSEMIDE 40 MG/4 ML VIAL IV SCH ×2 (10:17→17:28)
[2021-09-15] MEDS ORDERED: FUROSEMIDE 40 MG/4 ML VIAL ONE (10:18)
[2021-09-15] MEDS ORDERED: SODIUM POLYSTYRENE SULFONATE 15 G/60 ML BOTTLE ONE (10:19)
[2021-09-15] MEDS ORDERED: ALBUTEROL FS 2.5 MG/3 ML VIAL.NEB IH PRN (10:30)
[2021-09-15] MEDS ORDERED: IBUPROFEN 400 MG TABLET ONE (10:37)
[2021-09-15] MEDS ORDERED: CARVEDILOL 12.5 MG TABLET ONE (10:37)
[2021-09-15] MEDS: CARVEDILOL 12.5 MG TABLET PO SCH ×2 (10:47→20:57)
[2021-09-15] MEDS ORDERED: diphenhydrAMINE HCL 25 MG CAPSULE PO PRN (13:00)
[2021-09-15] MEDS ORDERED: GABAPENTIN 100 MG CAPSULE ONE (13:09)
--- NOTE | 2021-09-15 13:30 | NUR ---
GOT BED 120-2
[2021-09-15] MEDS: CALCIUM ACETATE 667 MG CAP/TAB PO SCH ×2 (13:31→17:30)
[2021-09-15] MEDS: GABAPENTIN 100 MG CAPSULE PO SCH ×2 (13:31→17:30)
[2021-09-15] MEDS: SEVELAMER CARBONATE 800 MG TABLET PO SCH ×2 (13:31→17:30)
--- NOTE | 2021-09-15 14:11 | NUR ---
REPORT GIVEN TO SOON FOR FRANSICO
--- NOTE | 2021-09-15 14:26 | NUR ---
PT TRANSPORTED TO TELE BED, PT TRANSFERRED IN STABLE CONDITION, ABLE TO AMBULATE TO HER BED.
[2021-09-15 14:30] VITALS: BP 180/110
--- NOTE | 2021-09-15 14:30 | NUR ---
MINERAL ECONOMISTSALES ACCOUNT LEADER NOTES RECEIVED PATIENT FROM ER VIA STRETCHER AWAKE AWAKE AND A/O X3-4. ON ROOM AIR TOLERATING WELL. NO SOB NOTED. NOT IN DISTRESS. WITH NO COMPLAINTS OF PAIN OR DISCOMFORT AT THIS TIME. WITH IV ACCESS AT RIGHT FOREARM G20 SALINE LOCKED, PATENT AND INTACT. PATIENT REFUSED FOR TELE MONITOR. SKIN IS INTACT. FOR HEMODIALYSIS. SAFETY MEASURES IN PLACED. CALL LIGHT WITHIN REACH. BED ON LOWEST LOCKED POSITION, SIDE RAILS UP X2. WILL CONTINUE TO MONITOR.
[2021-09-15] MEDS ORDERED: HYDROCODONE/APAP 5/325MG TABLET PO PRN (14:45)
[2021-09-15] MEDS ORDERED: diphenhydrAMINE HCL 50 MG/ML VIAL IV PRN (15:00)
[2021-09-15] MEDS: diphenhydrAMINE HCL 50 MG/ML VIAL IV PRN (15:15)
[2021-09-15] MEDS ORDERED: HEPARIN SODIUM, PORCINE 5000 UNITS/1 ML VIAL SQ SCH (17:00)
[2021-09-15] MEDS: QUETIAPINE FUMARATE 100 MG TABLET PO SCH (17:28)
[2021-09-15] MEDS: hydrALAZINE HCL 50 MG TABLET PO SCH (17:30)
[2021-09-15] MEDS: TOPIRAMATE 100 MG TABLET PO SCH (17:30)
[2021-09-15] MEDS: APIXABAN 5 MG TABLET PO SCH (17:32)
--- NOTE | 2021-09-15 18:43 | NUR ---
PRODUCT DEVELOPMENT ACTUARY CLOSING NOTES PATIENT AWAKE, SITTING ON BED AND A/O X3-4. ON ROOM AIR TOLERATING WELL. NO SOB NOTED. NOT IN DISTRESS. WITH NO COMPLAINTS OF PAIN OR DISCOMFORT AT THIS TIME. WITH IV ACCESS AT RIGHT FOREARM G20 SALINE LOCKED, PATENT AND INTACT. S/P HEMODIALYSIS WITH AN OUTPUT OF 3L. DUE MEDS GIVEN. SAFETY MEASURES IN PLACED. CALL LIGHT WITHIN REACH. BED ON LOWEST, LOCKED POSITION. SIDE RAILS UP X2. WILL ENDORSE TO NEXT SHIFT FOR FRANSICO.
--- NOTE | 2021-09-15 19:10 | NUR ---
RN OPENING NOTES RECEIVED PATIENT ON BED, AWAKE, VERBALLY RESPONSIVE, A/O X 3-4. ON ROOM AIR SATING AT 99%. RESPIRATORY EVEN AND UNLABORED, NO SOB NOTED. REMAIN AFEBRILE. NO S/S OF DISTRESS NOTED. NOTED WITH RIGHT FOREARM IV LINE #20, INTACT PATENT, FLUSHED WITH NS. NO INFILTRATION NOTED AT SITE. KATERIN AV SHUNT FOR HD, NO BLEEDING AT SITE NOTED. SAFETY MEASURE PROVIDED. BED IN LOWEST POSITION, LOCKED. BED ALARM ARMED. CONTINUE TO MONITOR.
[2021-09-15 20:00] VITALS: BP 150/114
[2021-09-15] MEDS ORDERED: DOXYCYCLINE 100 MG in IV D5W 100 ML IV SCH (21:00)
[2021-09-16] VITALS: BP 137/82
[2021-09-16 04:00] VITALS: BP 150/95
--- NOTE | 2021-09-16 07:00 | NUR ---
RN OPENING NOTES PATIENT ENDORSED BY OUTGOING NURSE FOR CONTINUITY OF CARE. PATIENT IN BED, A/O X4, ABLE TO VERBALIZE NEEDS. PATIENT IN NO DISCOMFORT OR PAIN AT THIS TIME. PATIENT ON ROOM AIR, BREATHING EVEN AND UNLABORED, NO SOB NOTED. WITH IV ACCESS ON LEFT FOREARM #20G AND LEFT UPPER ARM AV FISTULA. ON TELE MONITOR NO DISTRESS OR SOB NOTED. NO SIGNIFICANT FINDINGS UPON INITIAL NURSING ASSESSMENTS. SAFETY MEASURES IN PLACE. BED IN LOWEST AND LOCKED POSITION, SR UP X2, CALL LIGHT PLACED WITHIN EASY REACH. WILL CONTINUE TO MONITOR PATIENT.
--- NOTE | 2021-09-16 07:38 | NUR ---
RN NOTES NO SIGNIFICANT CHANGES THROUGH OUT THE SHIFT. RESPIRATORY EVEN AND UNLABORED, NO SOB NOTED. REMAIN AFEBRILE. NO S/S OF DISTRESS NOTED. KATERIN AV SHUNT FOR HD, NO BLEEDING AT SITE NOTED. PATIENT REFUSED TELEBOX, EXPLAINED RISK AND BENEFITS, OFFERED 3X, STILL REFUSED. ALL DUE MEDS GIVEN ORDERED. SAFETY MEASURE PROVIDED. BED IN LOWEST POSITION, LOCKED. BED ALARM ARMED. ENDORSED TO NEXT SHIFT.
[2021-09-16 08:00] VITALS: BP 186/114
[2021-09-16] MEDS: SEVELAMER CARBONATE 800 MG TABLET PO SCH ×3 (08:37→17:23)
[2021-09-16] MEDS: hydrALAZINE HCL 50 MG TABLET PO SCH ×2 (08:43→16:42)
[2021-09-16] MEDS: CALCIUM ACETATE 667 MG CAP/TAB PO SCH ×3 (08:44→17:23)
[2021-09-16] MEDS: FUROSEMIDE 40 MG/4 ML VIAL IV SCH ×2 (08:44→16:41)
[2021-09-16] MEDS: CALCITRIOL 0.25 MCG CAPSULE PO SCH (08:44)
[2021-09-16] MEDS: NIFEdipine XL (30MG) 30 MG TAB PO SCH (08:45)
[2021-09-16] MEDS: MONTELUKAST SODIUM (10MG) 10 MG TABLET PO SCH (08:45)
[2021-09-16] MEDS: QUETIAPINE FUMARATE 100 MG TABLET PO SCH ×2 (08:45→16:40)
[2021-09-16] MEDS: CARVEDILOL 12.5 MG TABLET PO SCH ×2 (08:46→21:38)
[2021-09-16] MEDS: DOXAZOSIN MESYLATE (4 MG) 4 MG TABLET PO SCH (08:46)
[2021-09-16] MEDS: TOPIRAMATE 100 MG TABLET PO SCH ×2 (08:46→16:42)
[2021-09-16] MEDS: GABAPENTIN 100 MG CAPSULE PO SCH ×3 (08:46→16:42)
[2021-09-16] MEDS: APIXABAN 5 MG TABLET PO SCH ×2 (08:47→16:43)
[2021-09-16] MEDS: LEVOTHYROXINE SODIUM 25 MCG TABLET PO SCH (08:47)
[2021-09-16] MEDS ORDERED: LORAZEPAM 1 MG TABLET PO PRN ×3 (11:00→19:00)
[2021-09-16 12:00] VITALS: BP 141/87
[2021-09-16] MEDS: diphenhydrAMINE HCL 50 MG/ML VIAL IV PRN (12:12)
[2021-09-16] MEDS: DOXYCYCLINE HYCLATE (100 MG) 100 MG TABLET PO SCH ×2 (12:37→21:38)
[2021-09-16 13:37] LABS: EOSINOPHILS % (AUTO) 6.9 % (0.0-6.0); HEMATOCRIT 21 % (33-45); LYMPHOCYTES # (AUTO) 0.2 K/uL (0.8-4.8); LYMPHOCYTES % (AUTO) 7.7 % (20.0-44.0); MEAN CORPUSCULAR HGB CONC 33 g/dl (31.0-36.0); MEAN CORPUSCULAR VOLUME 101 fL (82-100); MONOCYTES # (AUTO) 0.3 K/uL (0.1-1.30); MONOCYTES % (AUTO) 11.1 % (2.0-12.0); NEUTROPHILS # (AUTO) 2.3 K/uL (1.8-8.9); NEUTROPHILS % (AUTO) 73.3 % (43.0-81.0); PLATELET COUNT (AUTO) 106 K/uL (150-450); RED BLOOD CELL COUNT(AUTO) 2.07 MIL/uL (4.0-5.2); WHITE BLOOD COUNT (AUTO) 3.1 K/uL (4.3-11.0)
[2021-09-16 16:00] VITALS: BP 143/80
[2021-09-16] MEDS: methylPREDNISolone SOD SUCC 40 MG/ML VIAL IV SCH (16:41)
[2021-09-16 16:52] LABS: HEMOGLOBIN 6.9 g/dL (11.5-14.8)
[2021-09-16 17:03] LABS: THYROID STIMULATING HORMONE 4.33 uIU/mL (0.358-3.74)
[2021-09-16 17:48] LABS: ALBUMIN 3.9 g/dL (3.4-5.0); BILIRUBIN,TOTAL 0.4 mg/dL (0.2-1.0); CALCIUM, SERUM 8.6 mg/dL (8.5-10.1); CREATININE 6.5 mg/dL (0.6-1.3); MAGNESIUM 2.3 mg/dL (1.8-2.4); PHOSPHORUS 4.3 mg/dL (2.5-4.9); POTASSIUM 4.3 mmol/L (3.5-5.1); TOTAL PROTEIN, SERUM 7.7 g/dL (6.4-8.2)
[2021-09-16 18:00] LABS: EOSINOPHILS % (MANUAL) 5 % (0-4); LYMPHOCYTES % (MANUAL) 8 % (16-48); MONOCYTES % (MANUAL) 11 % (0-11.0); NEUTROPHILS % (MANUAL) 76 (42-76)
[2021-09-16 18:01] LABS: BASOPHILS % (MANUAL) 0 % (0.0-2.0)
--- NOTE | 2021-09-16 18:56 | NUR ---
Closing Notes Patient is resting comfortably and is in no acute distress. Call light and tray table with personal belongings within reach. Patient was monitor throughout shift and vitals remained in patients baseline. Interventions were completed as needs. All of the patients needs have been met. Assistance was provided as needed. All due medication given per MD orders. Will endorse to shift leader.
[2021-09-16 20:00] VITALS: BP 128/80
--- NOTE | 2021-09-16 21:45 | NUR ---
Patient is A&Ox3, but drowsy however pt. did receive PRN Ativan recently as well as routine seroquel. Patient still refusing to apply tele monitor though agreeable to take vital signs. Vital signs are stable though Hr elevated at 108. Will continue to monitor patient. Currently dozing in bed but still verbally responsive and oriented. Addendum: 09/16/21 at 2233 by GEE MADSEN RN bed alarm is on and side rails x2 up. Addendum: 09/16/21 at 2322 by GEE MADSEN RN Time 5 -opening note
--- NOTE | 2021-09-16 23:05 | NUR ---
Patient agreed to have tele box on while sleeping for now. On monitor shows ST with 1st degree AV block HR 100-110. Notified airborne mission systems superintendent that patient is often non-compliant with tele box and may take it off when she wakes up. Per just do the best you can to keep tele box on her and educate pt. on risk and benefits especially since she has an arrhythmia. Patient's potassium is at 4.3 currently though -corrected with HD earlier.
[2021-09-17] VITALS: BP 130/86
[2021-09-17 04:00] VITALS: BP 135/86
--- NOTE | 2021-09-17 06:17 | NUR ---
RN CLOSING NOTES Patient is sleeping but easy to wake. Slept well overnight. A&Ox3. Patient is SR with borderline 1st degree AV block on the monitor. Amb with 1 person assist. RFA #20G IV intact and patent. KATERIN AV fistula +bruit/thrill. Patient only voided x1 which was before order was seen for urine drug test and test. Put "hat" in toilet and cup in room for whenever patient is able to provide specimen.
[2021-09-17] MEDS: LEVOTHYROXINE SODIUM 25 MCG TABLET PO SCH (06:33)
--- NOTE | 2021-09-17 06:53 | NUR ---
lab able to draw AM labs d/t patient is hardstick. Will send someone else per strapping machine tender. Addendum: 09/17/21 at 0654 by GEE MADSEN RN UNABLE
--- NOTE | 2021-09-17 07:30 | NUR ---
RECEIVED PATIENT SEATING AT BEDSIDE. AWAKE ALERT ORIENTED X 3 VERBALLY RESPONSIVE, NOT IN DISTRESS NO COMPLAINTS OF PAIN NOTED. KATERIN AV FISTULA + BRUIT AND +THRILL. RFA #20g IN PLACE PATENT AND INTACT. CALL LIGHT WITHIN REACH. BED TO LOWEST POSITION AND LOCKED.
[2021-09-17 08:00] VITALS: BP 130/74
[2021-09-17] MEDS: CALCIUM ACETATE 667 MG CAP/TAB PO SCH ×4 (08:00→17:46)
[2021-09-17] MEDS: SEVELAMER CARBONATE 800 MG TABLET PO SCH ×4 (08:00→17:46)
[2021-09-17] MEDS: FUROSEMIDE 40 MG/4 ML VIAL IV SCH ×2 (08:18→17:05)
[2021-09-17] MEDS: methylPREDNISolone SOD SUCC 40 MG/ML VIAL IV SCH ×2 (08:19→17:05)
[2021-09-17] MEDS: NIFEdipine XL (30MG) 30 MG TAB PO SCH ×2 (08:20→09:00)
[2021-09-17] MEDS: CALCITRIOL 0.25 MCG CAPSULE PO SCH ×2 (08:20→09:00)
[2021-09-17] MEDS: GABAPENTIN 100 MG CAPSULE PO SCH ×4 (08:20→17:00)
[2021-09-17] MEDS: MONTELUKAST SODIUM (10MG) 10 MG TABLET PO SCH ×2 (08:20→09:00)
[2021-09-17] MEDS: TOPIRAMATE 100 MG TABLET PO SCH ×3 (08:21→17:00)
[2021-09-17] MEDS: DOXAZOSIN MESYLATE (4 MG) 4 MG TABLET PO SCH ×2 (08:21→09:00)
[2021-09-17] MEDS: CARVEDILOL 12.5 MG TABLET PO SCH ×3 (08:22→21:00)
[2021-09-17] MEDS: QUETIAPINE FUMARATE 100 MG TABLET PO SCH ×3 (08:22→17:00)
[2021-09-17] MEDS: DOXYCYCLINE HYCLATE (100 MG) 100 MG TABLET PO SCH ×3 (08:22→21:00)
[2021-09-17] MEDS: hydrALAZINE HCL 50 MG TABLET PO SCH ×3 (08:22→17:00)
[2021-09-17] MEDS: APIXABAN 5 MG TABLET PO SCH ×2 (09:00→17:00)
--- NOTE | 2021-09-17 09:10 | NUR ---
YENIFER NOTES PATIENT REFUSED PO MEDS DUE. MD PABLO MADE AWARE. Addendum: 09/17/21 at 0917 by ROC MCNEILL RN EXPLAINED THE RISK AND BENEFITS OF MEDICATION TO PATIENT BUT PATIENT STILL REFUSED FOR PATIENT STATED MEDICATIONS MAKES HER STOMACH ACHE.
--- NOTE | 2021-09-17 09:25 | NUR ---
RN NOTES CALLED LAB AND FOLLOWED UP IF PATIENT HAD ALREADY BLOOD DRAWN FOR AM LABS TODAY AND LAB STATED NO BLOOD DRAWN YET AND WILL BE GOING IN TO DO THE BLOOD DRAWN.
[2021-09-17 12:00] VITALS: BP 148/92
--- NOTE | 2021-09-17 12:04 | NUR ---
RN NOTES PATIENT BP READING 1200 ELEVATED AND PATIENT MADE AWARE OF THE IMPORTANCE OF TAKING HER MEDICATIONS AND PATIENT STILL STRONGLY REFUSED. ALSO GOT A CALL FROM LAB THAT BLOOD IS READY FOR PATIENT AND FOLLOWED UP ON THE BLOOD DRAW FOR HH FOR PATIENT PRIOR TO BLOOD TRANSFUSION PREFERABLY WITH DIALYSIS PER DR PABLO'S NOTES TODAY. LAB SAID WILL SEND SOMEONE SHYLA TO DO BLOOD DRAWN. LAB AWARE PATIENT IS HARD STICK.
--- NOTE | 2021-09-17 14:06 | NUR ---
RN NOTES CALLED LAB AND FOLLOWED UP AGAIN FOR PATIENT'S BLOOD DRAWN.
[2021-09-17 15:03] LABS: BASOPHILS % (AUTO) 0.3 % (0.0-2.0); EOSINOPHILS % (AUTO) 0.1 % (0.0-6.0); HEMATOCRIT 24 % (33-45); HEMOGLOBIN 7.9 g/dL (11.5-14.8); LYMPHOCYTES # (AUTO) 0.2 K/uL (0.8-4.8); LYMPHOCYTES % (AUTO) 2.8 % (20.0-44.0); MEAN CORPUSCULAR HGB CONC 33 g/dl (31.0-36.0); MEAN CORPUSCULAR VOLUME 102 fL (82-100); MONOCYTES # (AUTO) 0.1 K/uL (0.1-1.30); MONOCYTES % (AUTO) 2.1 % (2.0-12.0); NEUTROPHILS # (AUTO) 5.5 K/uL (1.8-8.9); NEUTROPHILS % (AUTO) 94.7 % (43.0-81.0); PLATELET COUNT (AUTO) 137 K/uL (150-450); RED BLOOD CELL COUNT(AUTO) 2.36 MIL/uL (4.0-5.2); WHITE BLOOD COUNT (AUTO) 5.8 K/uL (4.3-11.0)
[2021-09-17 15:17] LABS: CALCIUM, SERUM 8.4 mg/dL (8.5-10.1); MAGNESIUM 2.1 mg/dL (1.8-2.4); PHOSPHORUS 4.7 mg/dL (2.5-4.9); POTASSIUM 5.5 mmol/L (3.5-5.1)
[2021-09-17 15:29] LABS: CREATININE 8.5 mg/dL (0.6-1.3)
--- NOTE | 2021-09-17 15:38 | NUR ---
RN NOTES CHARGE NURSE RECEIVED CRITICAL LAB RESULT FOR CREATININE 8.5. DR. PABLO MADE AWARE. ALSO MADE AWARE OF THE RECENT HH RESULT.
[2021-09-17 16:00] VITALS: BP 147/78
--- NOTE | 2021-09-17 18:04 | NUR ---
RN NOTES PATIENT WAS ABLE TO URINATE AND COLLECTED URINE SAMPLE FOR TEST AND DRUG SCREE. CALLED LAB MADE AWARE OF SPECIMEN READY FOR TEMPLE MEAT CUTTER.
--- NOTE | 2021-09-17 18:33 | NUR ---
RN CLOSING NOTES PATIENT IN BED. NOT IN DISTRESS. NO COMPLAINTS OF PAIN NOTED. PATIENT'S APPETITE ON SHIFT IS GOOD. PATIENT HAS BEEN REFUSING PO MEDS AND DR. PABLO AWARE. CRITICAL CREATININE LAB RELAYED TO MD WITH NO NEW ORDER NOTED. HH LABS RESULTED WITH HGB 7.9 AND HCT 24. PRBC READY WHENEVER BLOOD TRANSFUSION NEEDED, CONSENT IN THE CHART AND TYPE AND SCREEN DONE. PATIENT WAS ABLE TO VOID AND URINE COLLECTED FOR TEST AND DRUG SCREEN. LAB MADE AWARE SPECIMEN READY FOR METROLOGY ENGINEER. BED TO LOWEST POSITION AND LOCKED. CALL LIGHT WITHIN REACH. WILL ENDORSE TO PRODUCE TEAM LEAD NURSE ON DUTY.
--- NOTE | 2021-09-17 18:50 | NUR ---
RN NOTES MD PABLO MADE AWARE OF POTASSIUM LEVEL 5.5 AWAITING RESPONSE. CHARGE NURSE MADE AWARE.
--- NOTE | 2021-09-17 19:00 | NUR ---
RN NOTE RECEIVED PATIENT SITTING ON CHAIR ALERT ORIENTED X3 VERBALLY RESPONSIVE ON ROOM AIR,O2:100% IV SITE IS ON RIGHT FOREARM INTACT PATENT AND LEFT UPPER ARM AV SHUNT,AMBULATORY WITH ASSIST,SAFETY MEASURE IMPLEMENT,BED IN LOW POSITION AND LOCKED,CALL LIGHT WITHIN REACH CONTINUE TO MONITOR.
[2021-09-17 20:00] VITALS: BP 165/83
--- NOTE | 2021-09-17 21:00 | NUR ---
RN NOTE PATIENT REFUSES COREG AND DOXYCYCLINE MEDS BP IS `165/[address] ROLANDO ORDONEZ NOTIFIED,NO NEW ORDER AT THIS TIME CONTINUE TO MONITOR.
[2021-09-18] VITALS: BP 169/99
[2021-09-18 04:00] VITALS: BP 172/99
--- NOTE | 2021-09-18 06:47 | NUR ---
RN NOTE PATIENT REMAINS ON ALERT ORIENTED X3 VERBALLY RESPONSIVE SHE STILL REFUSING PO MEDS MD NOTIFIED NO SOB NOT ACUTE DISTRESS NOTED ENDORSE NEXT COMING SHIFT FOR CONTINUATION OF CARE.
[2021-09-18] MEDS: LEVOTHYROXINE SODIUM 25 MCG TABLET PO SCH (07:30)
[2021-09-18 08:00] VITALS: BP 179/103
[2021-09-18] MEDS: SEVELAMER CARBONATE 800 MG TABLET PO SCH ×3 (08:00→18:00)
[2021-09-18] MEDS: CALCIUM ACETATE 667 MG CAP/TAB PO SCH ×3 (08:00→18:00)
--- NOTE | 2021-09-18 08:01 | NUR ---
RN OPENING NOTE PATIENT RECEIVED IN BED, AO x 3, ABLE TO RESPONDS ALL STIMULI. IN NO ACUTE DISTRESS NOTED. RESPIRATORY EVEN AND UNLABORED ON ROOM AIR. SKIN IS WARM TO TOUCH, KEEP CLEAN/DRY, INTACT IV SITE. KEPT ELEVATED HOB FOR ENSURE AIRWAY AND ASPIRATION PRECAUTION, ALSO LOWEST POSITION OF THE BED, S/R UP X 2, BED ALARM IS ON AT ALL THE TIMES. ALL SAFETY PRECAUTION APPLIED. CALL LIGHT WITHIN REACH, WILL CONTINUE TO MONITOR.
[2021-09-18] MEDS: TOPIRAMATE 100 MG TABLET PO SCH ×2 (08:47→17:00)
[2021-09-18] MEDS: diphenhydrAMINE HCL 50 MG/ML VIAL IV PRN (08:47)
[2021-09-18] MEDS: DOXYCYCLINE HYCLATE (100 MG) 100 MG TABLET PO SCH (08:47)
[2021-09-18] MEDS: CALCITRIOL 0.25 MCG CAPSULE PO SCH (08:48)
[2021-09-18] MEDS: MONTELUKAST SODIUM (10MG) 10 MG TABLET PO SCH (08:48)
[2021-09-18] MEDS: QUETIAPINE FUMARATE 100 MG TABLET PO SCH ×2 (08:48→17:00)
[2021-09-18] MEDS: APIXABAN 5 MG TABLET PO SCH ×2 (08:49→17:00)
[2021-09-18] MEDS: GABAPENTIN 100 MG CAPSULE PO SCH ×3 (08:49→17:00)
[2021-09-18] MEDS: CARVEDILOL 12.5 MG TABLET PO SCH (09:00)
[2021-09-18] MEDS: NIFEdipine XL (30MG) 30 MG TAB PO SCH (09:00)
[2021-09-18] MEDS: hydrALAZINE HCL 50 MG TABLET PO SCH ×2 (09:00→17:00)
[2021-09-18] MEDS: DOXAZOSIN MESYLATE (4 MG) 4 MG TABLET PO SCH (09:00)
[2021-09-18 09:26] LABS: BASOPHILS % (AUTO) 0.2 % (0.0-2.0); EOSINOPHILS % (AUTO) 0.1 % (0.0-6.0); HEMATOCRIT 22 % (33-45); HEMOGLOBIN 7.3 g/dL (11.5-14.8); LYMPHOCYTES # (AUTO) 0.3 K/uL (0.8-4.8); LYMPHOCYTES % (AUTO) 2.9 % (20.0-44.0); MEAN CORPUSCULAR HGB CONC 33 g/dl (31.0-36.0); MEAN CORPUSCULAR VOLUME 102 fL (82-100); MONOCYTES # (AUTO) 0.7 K/uL (0.1-1.30); MONOCYTES % (AUTO) 7.9 % (2.0-12.0); NEUTROPHILS # (AUTO) 7.7 K/uL (1.8-8.9); NEUTROPHILS % (AUTO) 88.9 % (43.0-81.0); PLATELET COUNT (AUTO) 124 K/uL (150-450); WHITE BLOOD COUNT (AUTO) 8.6 K/uL (4.3-11.0)
[2021-09-18] MEDS ORDERED: DOXY100T2 PO (10:09)
[2021-09-18 10:10] LABS: CALCIUM, SERUM 8.1 mg/dL (8.5-10.1)
[2021-09-18 11:05] LABS: CREATININE 9.7 mg/dL (0.6-1.3)
[2021-09-18 12:00] VITALS: BP 169/93
[2021-09-18] MEDS: FUROSEMIDE 40 MG/4 ML VIAL IV SCH ×2 (12:45→17:00)
[2021-09-18] MEDS: methylPREDNISolone SOD SUCC 40 MG/ML VIAL IV SCH ×2 (12:46→17:00)
--- NOTE | 2021-09-18 12:47 | NUR ---
PATIENT REFUSED ALL PO MEDICATIONS.
--- NOTE | 2021-09-18 15:00 | NUR ---
PATIENT DISCHARGE TO HOME AND GIVEN DISCHARGE INSTRUCTION INCLUDE NEWS LIBRARY DIRECTOR NEW MEDICATION. HD IS FINISHED, 2000 ML OUT PUT. IN NO ACUTE DISTRESS OBSERVED, IN STABLE CONDITION.
[2021-09-18 16:00] VITALS: BP 172/102
== END 2021-09-18 18:37 | disposition home or self-care (01) | DRG 425 ==
LOC: ER 01:44 → TRANSITION 10:00 → TELE1 13:55
PROVIDERS: ADMIT Registered Nurse; ATTEND Internal Medicine
PROC: 5A1D70Z Performance of Urinary Filtration, Intermittent, Less than 6 Hours Per Day (ICD-10-PCS; principal; 2021-09-15)
DX: E87.5 Hyperkalemia (principal); D61.818 Other pancytopenia; D69.6 Thrombocytopenia, unspecified; I13.2 Hypertensive heart and chronic kidney disease with heart failure and with stage 5 chronic kidney disease, or end stage renal disease; N18.6 End stage renal disease; D63.1 Anemia in chronic kidney disease; E83.51 Hypocalcemia; F25.0 Schizoaffective disorder, bipolar type; Z76.5 Malingerer [conscious simulation]; Z99.2 Dependence on renal dialysis; I50.9 Heart failure, unspecified; T63.301A Toxic effect of unspecified spider venom, accidental (unintentional), initial encounter; I16.1 Hypertensive emergency; E03.9 Hypothyroidism, unspecified; F32.A Depression, unspecified; G89.4 Chronic pain syndrome; K21.9 Gastro-esophageal reflux disease without esophagitis; Z59.00 Homelessness unspecified; Z20.822 Contact with and (suspected) exposure to COVID-19; Z79.01 Long term (current) use of anticoagulants; Z86.711 Personal history of pulmonary embolism; Z86.718 Personal history of other venous thrombosis and embolism; Z86.73 Personal history of transient ischemic attack (TIA), and cerebral infarction without residual deficits; Z91.19 Patient's noncompliance with other medical treatment and regimen; Z95.828 Presence of other vascular implants and grafts; I48.91 Unspecified atrial fibrillation; R60.9 Edema, unspecified; G43.909 Migraine, unspecified, not intractable, without status migrainosus; J45.909 Unspecified asthma, uncomplicated; F19.10 Other psychoactive substance abuse, uncomplicated; Z79.899 Other long term (current) drug therapy; Z88.1 Allergy status to other antibiotic agents; Z91.15 Patient's noncompliance with renal dialysis; M81.0 Age-related osteoporosis without current pathological fracture; R93.89 Abnormal findings on diagnostic imaging of other specified body structures; R10.9 Unspecified abdominal pain
CPT/HCPCS: 36415; 80048-TC; 80053-TC; 80076-TC; 83690-TC; 83735-TC; 84100-TC; 84443-TC; 84703-TC; 85025-TC; 86850-TC; 87040-TC; 87081-TC; 90935-TC; C9803; G0378; J1200; J1815; J1940; J2270; J2405; J2920; J3490; J7030; J7050; J7060; Q0163

== ENCOUNTER 2022-02-05 15:18 | Inpatient (IN) | payer MEDICAID ==
[~2022-02-05] VITALS: Ht 167.6 cm; Wt 67.6 kg
[~2022-02-05 15:18] MED LIST changes: +DOXY100T2 PO
--- NOTE | 2022-02-05 15:18 | NUR ---
CAME IN FOR L LEG SWELLING SINCE YESTERDAY, TO ER BED 13, HOOKED TO MONITOR, CHANGEDT O HOSP GOWN, WARM BLANKET PROVIDED. AWAITING MD ROOT.
--- NOTE | 2022-02-05 16:42 | NUR ---
DR ESTRADA AT BEDSIDE FOR EVAL
[2022-02-05] MEDS ORDERED: MORPHINE SULFATE 8 MG/ML VIAL IM ONE (17:00)
[2022-02-05] MEDS ORDERED: MORPHINE SULFATE INJ 4 MG/ML DISP.SYRIN ONE (17:22)
[2022-02-05] MEDS ORDERED: MORPHINE SULFATE INJ 2 MG/ML DISP.SYRIN ONE (17:22)
[2022-02-05] MEDS ORDERED: MORPHINE SULFATE INJ 10 MG/ML DISP.SYRIN IV ONE (17:30)
--- NOTE | 2022-02-05 17:31 | NUR ---
RAPID COVID SWAB DONE AND SENT TO LAB
--- NOTE | 2022-02-05 17:31 | NUR ---
LITERATURE TEACHER AT BEDSIDE
[2022-02-05 17:37] LABS: BASOPHILS % (AUTO) 0.2 % (0.0-2.0); EOSINOPHILS % (AUTO) 4.5 % (0.0-6.0); HEMATOCRIT 26 % (33-45); HEMOGLOBIN 8.4 g/dL (11.5-14.8); LYMPHOCYTES # (AUTO) 0.5 K/uL (0.8-4.8); LYMPHOCYTES % (AUTO) 7.5 % (20.0-44.0); MEAN CORPUSCULAR HGB CONC 33 g/dl (31.0-36.0); MEAN CORPUSCULAR VOLUME 97 fL (82-100); MONOCYTES # (AUTO) 0.9 K/uL (0.1-1.30); MONOCYTES % (AUTO) 13.4 % (2.0-12.0); NEUTROPHILS # (AUTO) 5.1 K/uL (1.8-8.9); NEUTROPHILS % (AUTO) 74.4 % (43.0-81.0); PLATELET COUNT (AUTO) 150 K/uL (150-450); RED BLOOD CELL COUNT(AUTO) 2.66 MIL/uL (4.0-5.2); WHITE BLOOD COUNT (AUTO) 6.8 K/uL (4.3-11.0)
[2022-02-05 18:36] LABS: ALBUMIN 3.7 g/dL (3.4-5.0); BILIRUBIN,TOTAL 0.5 mg/dL (0.2-1.0); TOTAL PROTEIN, SERUM 8.7 g/dL (6.4-8.2)
[2022-02-05 18:38] LABS: EOSINOPHILS % (MANUAL) 3 % (0-4); LYMPHOCYTES % (MANUAL) 12 % (16-48); MONOCYTES % (MANUAL) 8 % (0-11.0); NEUTROPHILS % (MANUAL) 77 (42-76)
[2022-02-05 18:57] LABS: BILIRUBIN,DIRECT 0.1 mg/dL (0.0-0.2); CALCIUM, SERUM 8.6 mg/dL (8.5-10.1); POTASSIUM 5.9 mmol/L (3.5-5.1)
[2022-02-05 19:01] LABS: CREATININE 10.6 mg/dL (0.6-1.3)
[2022-02-05] MEDS ORDERED: SODIUM POLYSTYRENE SULFONATE 15 G/60 ML BOTTLE PO ONE (19:30)
[2022-02-05] MEDS ORDERED: ACETAMINOPHEN 325 MG TABLET PO PRN (20:00)
[2022-02-05] MEDS ORDERED: Z GUARD REMEDY 4 OZ OINT TP PRN (20:00)
[2022-02-05] MEDS ORDERED: HYDROCODONE/APAP 10/325MG TABLET PO PRN (20:00)
[2022-02-05] MEDS ORDERED: MAGNESIUM HYDROXIDE 30 ML UDC PO PRN (20:00)
[2022-02-05] MEDS ORDERED: MAG HYDROX/AL HYDROX/SIMETH 30 ML UDC PO PRN (20:00)
[2022-02-05] MEDS ORDERED: ONDANSETRON HCL/PF 4 MG/2 ML VIAL IVP PRN (20:00)
[2022-02-05] MEDS ORDERED: TEMAZEPAM 15 MG CAPSULE PO PRN (20:00)
[2022-02-05] MEDS ORDERED: SODIUM POLYSTYRENE SULFONATE 15 G/60 ML BOTTLE ONE (20:25)
[2022-02-05] MEDS ORDERED: CEFEPIME 1 GM in IV D5W 50 ML IV SCH (21:00)
--- NOTE | 2022-02-05 22:42 | NUR ---
REPORT GIVEN TO YENIFER ROBERST FOR FRANSICO
--- NOTE | 2022-02-05 22:56 | NUR ---
PATIENT TRANSFERRED UNDER ACLS
--- NOTE | 2022-02-05 23:00 | NUR ---
BEE RAISER NOTES PATIENT RECEIVED FROM EMERGENCY DEPARTMENT VIA STRETCHER. PATIENT IS AWAKE, ALERT AND ORIENTED X3. NO S/SX OF ACUTE DISTRESS NOTED. NO SOB NOTED. ON IV ACCESS ON RIGHT UPPER ARM #20G. PATENT, INTACT AND FLUSHING WELL. PATIENT C/O PAIN ON ABDOMEN. MEDICATED WITH PRN MEDS ORDERED. PATIENT IS ON ESRD ON HEMODIALYSIS. SAFETY MEASURES IN PLACE. CALL LIGHT WITHIN REACH. WILL CONTINUE TO MONITOR PATIENT'S SAFETY THROUGHOUT THE SHIFT.
[2022-02-05] MEDS: HYDROMORPHONE INJ 2 MG/ML DISP.SYRIN IV PRN (23:16)
[2022-02-05 23:30] VITALS: BP 137/87
[2022-02-05] MEDS ORDERED: CEFEPIME 1 GM VIAL ONE (23:54)
[2022-02-06] MEDS: CEFEPIME 1 GM in IV D5W 50 ML IV SCH ×2 (00:10→22:40)
--- NOTE | 2022-02-06 02:35 | NUR ---
PT RCVD TRACHED ON ROOM AIR. PLACED PT ON COOL AEROSOL 5L, 28%
--- NOTE | 2022-02-06 02:36 | NUR ---
PT RCVD TRACH ON ROOM AIR . PT PLACED ON COOL AEROSOL 5L,28% @ 12 AM
[2022-02-06 04:00] VITALS: BP 147/99
[2022-02-06] MEDS: HYDROMORPHONE INJ 2 MG/ML DISP.SYRIN IV PRN ×2 (04:40→08:55)
--- NOTE | 2022-02-06 06:08 | NUR ---
DIRECTOR REPORT NOTES PATIENT IS RESTING IN BED COMFORTABLY, AWAKE, ALERT AND ORIENTED X3. ON COOL AEROSOL 5L, 28% TOLERATED WELL. TRACHEOSTOMY SITE PATENT AND INTACT. NO S/SX OF ACUTE DISTRESS NOTED. NO SOB NOTED. IV ACCESS ON RIGHT UPPER ARM #20G. INTACT AND FLUSHING WELL. DENIES PAIN OR DISCOMFORT AT THIS TIME. PATIENT IS ON TELE MONITOR WITH READING OF SINUS RHYTHM WITH AV BLOCK. SAFETY MEASURES IN PLACE. CALL LIGHT WITHIN REACH. WILL ENDORSE TO THE DAY SHIFT NURSE FOR CONTINUITY OF CARE.
[2022-02-06] MEDS ORDERED: ALBUTEROL FS 2.5 MG/0.5 ML VIAL.NEB IH PRN (07:00)
--- NOTE | 2022-02-06 07:35 | NUR ---
HAND CUTTER APPRENTICE OPENING NOTES PATIENT AWAKE, ALERT AND ORIENTED X3. TRACHEOSTOMY SITE PATENT AND INTACT. NO S/SX OF ACUTE DISTRESS NOTED. ON COOL AEROSOL 5L, WHICH PT TAKES OFF FROM TIME TO TIME. NO SOB NOTED. IV ACCESS ON RIGHT UPPER ARM #20G. INTACT AND FLUSHING WELL. DENIES PAIN OR DISCOMFORT AT THIS TIME. PATIENT IS ON TELE MONITOR WITH READING OF SINUS RHYTHM WITH BBB HR- 90. SAFETY MEASURES IN PLACE. CALL LIGHT AND TABLE WITHIN REACH, WILL CONT TO MONITOR.
[2022-02-06 08:00] VITALS: BP 148/72
--- NOTE | 2022-02-06 08:56 | NUR ---
MS RN NOTES: (MANUAL BARCODE) DILAUDID MANUAL BARCODE ENTERED DUE TO SYRINGE THROWN IN THE SHARPS BIN INSIDE MEDROOM AFTER WASTING WITH ANOTHER DISC PAD PLATE FILLER WITNESS.
[2022-02-06] MEDS: CALCITRIOL 0.25 MCG CAPSULE PO SCH (09:01)
[2022-02-06] MEDS: GABAPENTIN 100 MG CAPSULE PO SCH ×3 (09:02→18:10)
[2022-02-06] MEDS: CALCIUM ACETATE 667 MG CAP/TAB PO SCH ×3 (09:02→18:10)
[2022-02-06] MEDS: DOXAZOSIN MESYLATE (4 MG) 4 MG TABLET PO SCH (09:02)
[2022-02-06] MEDS: FUROSEMIDE 40 MG TABLET PO SCH ×2 (09:02→18:11)
[2022-02-06] MEDS: CARVEDILOL 12.5 MG TABLET PO SCH ×2 (09:03→18:11)
[2022-02-06] MEDS: APIXABAN 5 MG TABLET PO SCH ×2 (09:05→18:13)
[2022-02-06] MEDS: QUETIAPINE FUMARATE 100 MG TABLET PO SCH ×2 (09:50→18:11)
[2022-02-06] MEDS: hydrALAZINE HCL 50 MG TABLET PO SCH ×2 (09:50→18:10)
[2022-02-06] MEDS: NIFEdipine XL (30MG) 30 MG TAB PO SCH (09:51)
[2022-02-06] MEDS: LEVOTHYROXINE SODIUM 25 MCG TABLET PO SCH (09:53)
[2022-02-06] MEDS: MONTELUKAST SODIUM (10MG) 10 MG TABLET PO SCH (09:53)
[2022-02-06] MEDS: TOPIRAMATE 100 MG TABLET PO SCH ×2 (09:53→18:10)
--- NOTE | 2022-02-06 10:17 | NUR ---
AT RISK PARAPROFESSIONAL NOTES: ( MEDICATION WASTE) PER PHARMACY, WASTED 2MG DILAUDID WITNESSED BY ANOTHER GRINDING MILL OPERATOR DUE TO PULLING OLD ORDER FROM [employer]. NEW MD ORDER PULLED AND ADMINISTERED SCHEDULED.
[2022-02-06] MEDS: PANTOPRAZOLE 40 MG TABLET.DR PO SCH (10:36)
[2022-02-06] MEDS: SEVELAMER CARBONATE 800 MG TABLET PO SCH ×3 (10:36→18:09)
[2022-02-06 11:05] LABS: ABG OXYGEN SATURATION 95.3 % (92.0-98.5); ABG PCO2 34.2 mmHg (35.0-45.0); ABG PH 7.321 (7.350-7.450); ABG PO2 89.2 mmHg (75.0-100.0); AaDO2 156.7 mmHg; COHb 0.5 % (0.5-1.5); MetHb 0.1 % (0.0-1.5); O2Hb 94.7 % (94.0-97.0); SITE, ABG Right Radial; VENT MODE, BG CA 28%
[2022-02-06 12:00] VITALS: BP 143/86
[2022-02-06 12:04] LABS: CALCIUM, SERUM 8.8 mg/dL (8.5-10.1); MAGNESIUM 2.3 mg/dL (1.8-2.4); PHOSPHORUS 7.9 mg/dL (2.5-4.9)
[2022-02-06 12:15] LABS: POTASSIUM 6.3 mmol/L (3.5-5.1)
[2022-02-06 12:17] LABS: CREATININE 11.4 mg/dL (0.6-1.3)
[2022-02-06 13:09] LABS: BASOPHILS % (AUTO) 0.8 % (0.0-2.0); EOSINOPHILS % (AUTO) 5.6 % (0.0-6.0); HEMATOCRIT 28 % (33-45); HEMOGLOBIN 8.8 g/dL (11.5-14.8); LYMPHOCYTES # (AUTO) 0.5 K/uL (0.8-4.8); LYMPHOCYTES % (AUTO) 10.6 % (20.0-44.0); MEAN CORPUSCULAR HGB CONC 32 g/dl (31.0-36.0); MEAN CORPUSCULAR VOLUME 99 fL (82-100); MONOCYTES # (AUTO) 0.7 K/uL (0.1-1.30); MONOCYTES % (AUTO) 14.7 % (2.0-12.0); NEUTROPHILS # (AUTO) 3.1 K/uL (1.8-8.9); NEUTROPHILS % (AUTO) 68.3 % (43.0-81.0); PLATELET COUNT (AUTO) 105 K/uL (150-450); RED BLOOD CELL COUNT(AUTO) 2.82 MIL/uL (4.0-5.2); WHITE BLOOD COUNT (AUTO) 4.5 K/uL (4.3-11.0)
[2022-02-06] MEDS: HYDROMORPHONE 1 MG/1 ML DISP.SYRIN IV PRN ×3 (14:19→23:18)
--- NOTE | 2022-02-06 14:45 | NUR ---
HEMODIALYSIS STARTED CONSENT SIGNED, BP- 149/85, HR 69, TEMP- 98.1, O2 SAT @ 97%, RR-18
[2022-02-06] MEDS: diphenhydrAMINE HCL 50 MG/ML VIAL IV PRN (14:48)
[2022-02-06] MEDS: ACETYLCYSTEINE 10% SOLN 400 MG/4 ML VIAL NEB SCH (15:11)
[2022-02-06] MEDS: ALBUTEROL FS 2.5 MG/3 ML VIAL.NEB NEB SCH ×2 (15:11→20:44)
[2022-02-06 16:00] VITALS: BP 146/79
--- NOTE | 2022-02-06 17:45 | NUR ---
HEMODIALYSIS COMPLETED: OUTPUT: 3.5 L BP: 146/95, HR: 77, TEMP- 97.9, RR- 18, O2 SAT 98%
--- NOTE | 2022-02-06 19:30 | NUR ---
RN NOTES RECEIVED PT IN BED, AWAKE, SITTING UPRIGHT. AOx4. ON T-PIECE BUT REFUSING AEROSOLIZED OXYGEN 5L/MIN. NO DISTRESS NOTED. WILL CONTINUE PLAN OF CARE.
--- NOTE | 2022-02-06 19:48 | NUR ---
TOWER CRANE OPERATOR OPENING NOTES PATIENT AWAKE, ALERT AND ORIENTED X3. TRACHEOSTOMY SITE PATENT AND INTACT. NO S/SX OF ACUTE DISTRESS NOTED. ON COOL AEROSOL 5L, WHICH PT TAKES OFF FROM TIME TO TIME. NO SOB NOTED. IV ACCESS ON RIGHT UPPER ARM #20G. INTACT AND FLUSHING WELL. DENIES PAIN OR DISCOMFORT AT THIS TIME. PATIENT IS ON TELE MONITOR WITH READING OF SINUS RHYTHM WITH BBB HR- 88. SAFETY MEASURES IN PLACE. CALL LIGHT AND TABLE WITHIN REACH, ENDORSED TO PM SHIFT. Addendum: 02/06/22 at 1952 by TANMAY TYLER RN TOWER CRANE OPERATOR CLOSING NOTES
[2022-02-06 20:00] VITALS: BP 130/59
--- NOTE | 2022-02-06 23:19 | NUR ---
RN NOTES ADMINISTERED DILAUDID FOR PAIN PER MD ORDER. VS WNL.
[2022-02-07] VITALS: BP 154/96
[2022-02-07] MEDS: ALBUTEROL FS 2.5 MG/3 ML VIAL.NEB NEB SCH ×4 (01:30→20:40)
[2022-02-07] MEDS: ACETYLCYSTEINE 10% SOLN 400 MG/4 ML VIAL NEB SCH ×4 (01:31→23:46)
[2022-02-07] MEDS: HYDROMORPHONE 1 MG/1 ML DISP.SYRIN IV PRN ×4 (03:10→20:28)
--- NOTE | 2022-02-07 03:10 | NUR ---
RN NOTES ADMINISTERED DILAUDID FOR PAIN PER MD ORDER. VS WNL.
[2022-02-07 05:57] VITALS: BP 152/91
[2022-02-07 06:41] LABS: CALCIUM, SERUM 8.7 mg/dL (8.5-10.1)
--- NOTE | 2022-02-07 06:46 | NUR ---
RN CLOSING NOTES PT IN BED, ASLEEP, AWAKENS TO VERBAL STIMULI. AOx4. ON T-PIECE BUT REFUSING AEROSOLIZED OXYGEN 5L/MIN. NO DISTRESS NOTED. ALL ORDERS CARRIED OUT. ALL NEEDS MET. PT KEPT CLEAN AND DRY. WILL ENDORSE TO ONCOMING SHIFT FOR FRANSICO.
--- NOTE | 2022-02-07 07:30 | NUR ---
RN Receiving report. PT AOx4, able to express her own concerns. Pt connected to T-Piece 5l/m. Patient with no sign of distress, pt having trouble communicating but is able to express herself. Offered a pen and paper, pt refused. State she is ok, with some pain, sharing pictures of granddaughter and her 8 kids. Will continue to monitor throughout shift, all safety precautions taken, call light and table within reach, bed at lowest position.
[2022-02-07] MEDS: PANTOPRAZOLE 40 MG TABLET.DR PO SCH (08:10)
[2022-02-07] MEDS: LEVOTHYROXINE SODIUM 25 MCG TABLET PO SCH (08:11)
[2022-02-07] MEDS: CALCITRIOL 0.25 MCG CAPSULE PO SCH (08:12)
[2022-02-07] MEDS: DOXAZOSIN MESYLATE (4 MG) 4 MG TABLET PO SCH (08:12)
[2022-02-07] MEDS: CALCIUM ACETATE 667 MG CAP/TAB PO SCH ×3 (08:12→17:49)
[2022-02-07] MEDS: SEVELAMER CARBONATE 800 MG TABLET PO SCH ×3 (08:12→17:50)
[2022-02-07] MEDS: GABAPENTIN 100 MG CAPSULE PO SCH ×3 (08:13→17:49)
[2022-02-07] MEDS: NIFEdipine XL (30MG) 30 MG TAB PO SCH (08:13)
[2022-02-07] MEDS: CARVEDILOL 12.5 MG TABLET PO SCH ×2 (08:13→17:51)
[2022-02-07] MEDS: QUETIAPINE FUMARATE 100 MG TABLET PO SCH ×2 (08:13→17:50)
[2022-02-07] MEDS: FUROSEMIDE 40 MG TABLET PO SCH ×2 (08:13→17:50)
[2022-02-07] MEDS: hydrALAZINE HCL 50 MG TABLET PO SCH ×2 (08:14→17:51)
[2022-02-07] MEDS: MONTELUKAST SODIUM (10MG) 10 MG TABLET PO SCH (08:15)
[2022-02-07] MEDS: APIXABAN 5 MG TABLET PO SCH ×2 (08:15→17:53)
[2022-02-07] MEDS: TOPIRAMATE 100 MG TABLET PO SCH ×2 (08:41→17:50)
[2022-02-07] MEDS: diphenhydrAMINE HCL 50 MG/ML VIAL IV PRN (12:04)
--- NOTE | 2022-02-07 19:03 | NUR ---
RN Closing notes PT AOx4 able to express her own concerns. Patient removes t-piece, educated pt on importance of the need of continuos aerosolized o2. Administered medications as prescribed and provided care and assistance as needed throughout shift. All safety precautions taken, call light and table within reach, bed at lowest position.
--- NOTE | 2022-02-07 19:28 | NUR ---
RN opening notes PT AOx4 able to express her needs. Patient removes t-piece, educated pt on importance of the need of continuos aerosolized o2 and not to remove t- piece pt is non compliant. provided care and assistance as needed. All safety precautions taken, call light and table within reach, bed at lowest position.
[2022-02-07 20:00] VITALS: BP 158/97
--- NOTE | 2022-02-07 20:32 | NUR ---
RN NOTES prn Dilaudid given for pain 01/22 tolerated well.
[2022-02-07] MEDS: CEFEPIME 1 GM in IV D5W 50 ML IV SCH (22:26)
[2022-02-08] VITALS: BP 152/93
[2022-02-08] MEDS: HYDROMORPHONE 1 MG/1 ML DISP.SYRIN IV PRN ×5 (00:32→22:42)
--- NOTE | 2022-02-08 00:35 | NUR ---
RN NOTES prn Dilaudid given for pain 01/22 tolerated well.
[2022-02-08] MEDS: ALBUTEROL FS 2.5 MG/3 ML VIAL.NEB NEB SCH ×4 (01:58→19:32)
[2022-02-08 04:00] VITALS: BP 167/98
--- NOTE | 2022-02-08 06:50 | NUR ---
RN Closing notes PT AOx4 able to express her needs. Patient removes t-piece, educated pt on importance of the need of continuos aerosolized o2 and not to remove t- piece pt is non compliant. provided care and assistance as needed. pain management provided as needed Dilaudid given at this time for 8/10 pain tolerated well.All safety precautions taken, call light and table within reach, bed at lowest position.
[2022-02-08 07:28] LABS: BASOPHILS % (AUTO) 0.6 % (0.0-2.0); EOSINOPHILS % (AUTO) 10.7 % (0.0-6.0); HEMATOCRIT 24 % (33-45); HEMOGLOBIN 7.9 g/dL (11.5-14.8); LYMPHOCYTES # (AUTO) 0.4 K/uL (0.8-4.8); LYMPHOCYTES % (AUTO) 9.8 % (20.0-44.0); MEAN CORPUSCULAR HGB CONC 33 g/dl (31.0-36.0); MEAN CORPUSCULAR VOLUME 97 fL (82-100); MONOCYTES # (AUTO) 0.7 K/uL (0.1-1.30); MONOCYTES % (AUTO) 17.7 % (2.0-12.0); NEUTROPHILS # (AUTO) 2.4 K/uL (1.8-8.9); NEUTROPHILS % (AUTO) 61.2 % (43.0-81.0); PLATELET COUNT (AUTO) 96 K/uL (150-450); RED BLOOD CELL COUNT(AUTO) 2.47 MIL/uL (4.0-5.2); WHITE BLOOD COUNT (AUTO) 3.9 K/uL (4.3-11.0)
--- NOTE | 2022-02-08 07:30 | NUR ---
DIESEL ENGINE FITTER OPENING NOTES RECEIVED PATIENT ON AWAKE, ALERT AND ORIENTED X3. TRACHEOSTOMY SITE PATENT AND INTACT. NO S/SX OF ACUTE DISTRESS NOTED. ON COOL AEROSOL 5L, WHICH PT TAKES OFF FROM TIME TO TIME. NO SOB NOTED. IV ACCESS ON RIGHT UPPER ARM #20G. INTACT AND FLUSHING WELL. NO C/O PAIN OR DISCOMFORT AT THIS TIME. PATIENT IS ON TELE MONITOR WITH READING OF SINUS RHYTHM WITH BBB HR- 88. SAFETY MEASURES IN PLACE. CALL LIGHT AND TABLE WITHIN REACH, CONTINUE TO MONITOR
[2022-02-08 07:41] LABS: CALCIUM, SERUM 8.5 mg/dL (8.5-10.1); CREATININE 7.3 mg/dL (0.6-1.3); POTASSIUM 4.6 mmol/L (3.5-5.1)
[2022-02-08] MEDS: ACETYLCYSTEINE 10% SOLN 400 MG/4 ML VIAL NEB SCH ×3 (07:47→23:21)
[2022-02-08 08:00] VITALS: BP 166/106
[2022-02-08] MEDS: SEVELAMER CARBONATE 800 MG TABLET PO SCH ×3 (08:18→17:17)
[2022-02-08] MEDS: PANTOPRAZOLE 40 MG TABLET.DR PO SCH (08:18)
[2022-02-08] MEDS: LEVOTHYROXINE SODIUM 25 MCG TABLET PO SCH (08:18)
[2022-02-08] MEDS: CALCIUM ACETATE 667 MG CAP/TAB PO SCH ×3 (08:18→17:18)
[2022-02-08] MEDS: NIFEdipine XL (30MG) 30 MG TAB PO SCH (09:17)
[2022-02-08] MEDS: QUETIAPINE FUMARATE 100 MG TABLET PO SCH ×2 (09:18→17:17)
[2022-02-08] MEDS: CALCITRIOL 0.25 MCG CAPSULE PO SCH (09:18)
[2022-02-08] MEDS: GABAPENTIN 100 MG CAPSULE PO SCH ×3 (09:18→17:15)
[2022-02-08] MEDS: FUROSEMIDE 40 MG TABLET PO SCH ×2 (09:18→17:15)
[2022-02-08] MEDS: MONTELUKAST SODIUM (10MG) 10 MG TABLET PO SCH (09:18)
[2022-02-08] MEDS: DOXAZOSIN MESYLATE (4 MG) 4 MG TABLET PO SCH (09:18)
[2022-02-08] MEDS: hydrALAZINE HCL 50 MG TABLET PO SCH ×2 (09:19→17:16)
[2022-02-08] MEDS: CARVEDILOL 12.5 MG TABLET PO SCH ×2 (09:19→17:17)
[2022-02-08] MEDS: TOPIRAMATE 100 MG TABLET PO SCH ×2 (09:22→17:17)
[2022-02-08] MEDS: APIXABAN 5 MG TABLET PO SCH ×2 (09:26→17:23)
[2022-02-08 10:05] LABS: EOSINOPHILS % (MANUAL) 11 % (0-4); LYMPHOCYTES % (MANUAL) 9 % (16-48); MONOCYTES % (MANUAL) 9 % (0-11.0); NEUTROPHILS % (MANUAL) 71 (42-76)
[2022-02-08 12:00] VITALS: BP 171/111
[2022-02-08] MEDS: diphenhydrAMINE HCL 50 MG/ML VIAL IV PRN (12:25)
[2022-02-08 16:00] VITALS: BP 127/85
--- NOTE | 2022-02-08 18:50 | NUR ---
TIMBER HARVESTER OPERATOR CLOSING NOTES NOTES PATIENT ON BED AWAKE, ALERT AND ORIENTED X3. TRACHEOSTOMY SITE PATENT AND INTACT. NO S/SX OF ACUTE DISTRESS NOTED. ON COOL AEROSOL 5L, WHICH PT TAKES OFF FROM TIME TO TIME. NO SOB NOTED. IV ACCESS ON RIGHT UPPER ARM #20G. INTACT AND FLUSHING WELL. C/O PAIN OR DISCOMFORT AND DILAUDID IV GIVEN ORDERED . PATIENT IS ON TELE MONITOR WITH READING OF SINUS RHYTHM HR- 76.HAD HEMODIALYSIS TODAY WITH OUTPUT OF 3.5 LITERS ,ALL DUE MEDS GIVEN ORDERED , SAFETY MEASURES IN PLACE. CALL LIGHT AND TABLE WITHIN REACH, ENDORSED TO NEXT SHIFT
--- NOTE | 2022-02-08 19:11 | NUR ---
RT NOTE FOUND PT OFF COOL AEROSOL. TX GIVEN, INSTRUCTED PT ON BENEFITS OF COOL AEROSOL. NO SOB NOTED. NO S/S OF RESPIRATORY DISTRESS NOTED.
--- NOTE | 2022-02-08 20:00 | NUR ---
RECEIVED PATIENT, ALERT/ORIENTED X 3, TRACH COLLAR, ANGIOEDEMA, ON TELE MONITORING, SR, SITTING ON SIDE OF THE BED, S/P HD TODAY. KEPT SAFE, WILL CONTINUE TO MONITOR.
[2022-02-08 20:31] VITALS: BP 136/82
[2022-02-08] MEDS: CEFEPIME 1 GM in IV D5W 50 ML IV SCH (22:43)
[2022-02-09] VITALS: BP 148/92
[2022-02-09] MEDS: ALBUTEROL FS 2.5 MG/3 ML VIAL.NEB NEB SCH ×4 (00:59→20:14)
[2022-02-09 04:21] VITALS: BP 140/86
--- NOTE | 2022-02-09 06:39 | NUR ---
LETHARGIC, SLEEPY AT TIMES, ESRD ON HD, TRACH COLLAR, SPO2 STABLE, REMOVING TRACH AT TIMES, ANGIOEDEMA, BILATERAL LOWER EXTREMITIES EDEMA, CHRONIC PAIN SYNDROME, DILAUDID 1 MG IV Q4HRS, ASSESSED LEVEL OF CONSCIOUSNESS BEFORE GIVING. PATIENT WILL ASK THEN FALL ASLEEP WITHOUT GETTING DILAUDID. HD DAILY, PAIN CONTROL, FALL PRECAUTION.
--- NOTE | 2022-02-09 07:48 | NUR ---
SUPERVISOR IRRIGATION OPENING NOTES RECEIVED PATIENT AWAKE, ALERT AND ORIENTED X3. TRACHEOSTOMY SITE NOTED, DRY AND CLEAN. NO S/SX OF ACUTE DISTRESS NOTED. ON COOL AEROSOL 5L, WHICH PT TAKES OFF FROM TIME TO TIME, ADVISED PT ON IMPORTANCE OF ADHERENCE TO RT TREATMENT, PT VERBALIZED UNDERSTANDING. NO SOB NOTED. IV ACCESS ON RIGHT UPPER ARM #20G. INTACT AND FLUSHING WELL. PT REPORTS PAIN 9/10 AT THIS TIME, WILL MEDICATE PER MD, ORDER. PATIENT IS ON TELE MONITOR WITH READING OF SINUS RHYTHM WITH BBB HR- 90. SAFETY MEASURES IN PLACE. CALL LIGHT AND TABLE WITHIN REACH, WILL CONT TO MONITOR.
[2022-02-09] MEDS: ACETYLCYSTEINE 10% SOLN 400 MG/4 ML VIAL NEB SCH ×3 (07:57→23:54)
[2022-02-09 08:03] LABS: BASOPHILS % (AUTO) 0.6 % (0.0-2.0); EOSINOPHILS % (AUTO) 11.5 % (0.0-6.0); HEMATOCRIT 24 % (33-45); HEMOGLOBIN 8.1 g/dL (11.5-14.8); LYMPHOCYTES # (AUTO) 0.4 K/uL (0.8-4.8); LYMPHOCYTES % (AUTO) 8.7 % (20.0-44.0); MEAN CORPUSCULAR HGB CONC 34 g/dl (31.0-36.0); MEAN CORPUSCULAR VOLUME 95 fL (82-100); MONOCYTES # (AUTO) 0.7 K/uL (0.1-1.30); MONOCYTES % (AUTO) 14.7 % (2.0-12.0); NEUTROPHILS # (AUTO) 2.9 K/uL (1.8-8.9); NEUTROPHILS % (AUTO) 64.5 % (43.0-81.0); PLATELET COUNT (AUTO) 107 K/uL (150-450); RED BLOOD CELL COUNT(AUTO) 2.55 MIL/uL (4.0-5.2); WHITE BLOOD COUNT (AUTO) 4.5 K/uL (4.3-11.0)
[2022-02-09 08:15] LABS: CALCIUM, SERUM 8.6 mg/dL (8.5-10.1); CREATININE 6.7 mg/dL (0.6-1.3); POTASSIUM 4.4 mmol/L (3.5-5.1)
[2022-02-09] MEDS: HYDROMORPHONE 1 MG/1 ML DISP.SYRIN IV PRN ×3 (08:16→20:18)
[2022-02-09] MEDS: PANTOPRAZOLE 40 MG TABLET.DR PO SCH (08:21)
[2022-02-09] MEDS: hydrALAZINE HCL 50 MG TABLET PO SCH ×2 (08:21→12:59)
[2022-02-09] MEDS: CALCITRIOL 0.25 MCG CAPSULE PO SCH (08:21)
[2022-02-09] MEDS: CALCIUM ACETATE 667 MG CAP/TAB PO SCH ×3 (08:21→17:36)
[2022-02-09] MEDS: FUROSEMIDE 40 MG TABLET PO SCH ×2 (08:22→17:37)
[2022-02-09] MEDS: LEVOTHYROXINE SODIUM 25 MCG TABLET PO SCH (08:23)
[2022-02-09] MEDS: NIFEdipine XL (30MG) 30 MG TAB PO SCH (08:23)
[2022-02-09] MEDS: SEVELAMER CARBONATE 800 MG TABLET PO SCH ×3 (08:23→17:35)
[2022-02-09] MEDS: CARVEDILOL 12.5 MG TABLET PO SCH ×2 (08:24→13:00)
[2022-02-09] MEDS: APIXABAN 5 MG TABLET PO SCH ×2 (08:26→17:38)
[2022-02-09] MEDS: GABAPENTIN 100 MG CAPSULE PO SCH ×3 (08:27→17:36)
[2022-02-09] MEDS: MONTELUKAST SODIUM (10MG) 10 MG TABLET PO SCH (08:27)
[2022-02-09] MEDS: DOXAZOSIN MESYLATE (4 MG) 4 MG TABLET PO SCH (08:28)
[2022-02-09] MEDS: QUETIAPINE FUMARATE 100 MG TABLET PO SCH ×2 (08:28→17:36)
[2022-02-09] MEDS: TOPIRAMATE 100 MG TABLET PO SCH ×2 (08:30→17:36)
--- NOTE | 2022-02-09 08:30 | NUR ---
HELD AM BP MEDS FOR AM HD, BP- 149/96, HR- 88
[2022-02-09] MEDS: diphenhydrAMINE HCL 50 MG/ML VIAL IV PRN (11:18)
--- NOTE | 2022-02-09 19:35 | NUR ---
HARD TILE SETTER OPENING NOTES RECEIVED PATIENT RESTING IN BED; AWAKE, ALERT AND ORIENTED X3. WITH TRACHEOSTOMY COLLAR; DRY AND INTACT. ON COOL AEROSOL @ 5LPM; TOLERATING WELL. IN NO ACUTE DISTRESS. NO SOB NOTED. ON TELEMETRY MONITORING WITH READING OF SINUS RHYTHM HR-77 BPM. WITH IV ACCESS ON RIGHT UPPER ARM 20g: PATENT, INTACT AND SALINE LOCKED. ABLE TO MAKE NEEDS KNOWN. SAFETY MEASURES IMPLEMENTED: CALL LIGHT AND TABLE WITHIN REACH, SIDE RAILS UP X2, BED IN LOWEST LOCKED POSITION. WILL CONTINUE TO MONITOR.
[2022-02-09 20:00] VITALS: BP 154/90
--- NOTE | 2022-02-09 20:17 | NUR ---
RT Received pt on cool aerosol 28% @ 5LPM. Trach is secured and patent. Pt is alert and tolerating current settings with an SPO2 of 98%. Breathing tx given and tolerated with no adverse reactions. No respiratory distress or SOB upon initial assessment.
--- NOTE | 2022-02-09 20:18 | NUR ---
RN NOTES PT C/O OF ABDOMINAL PAIN 02/22, PRN DILAUDID GIVEN IV ORDERED; TOLERATED WELL
[2022-02-09 20:35] VITALS: BP 154/90
--- NOTE | 2022-02-09 20:53 | NUR ---
CORRECTIONAL AGENCY DIRECTOR CLOSING NOTES RECEIVED PATIENT AWAKE, ALERT AND ORIENTED X3. TRACHEOSTOMY SITE NOTED, DRY AND CLEAN. NO S/SX OF ACUTE DISTRESS NOTED. ON COOL AEROSOL 5L, WHICH PT TAKES OFF FROM TIME TO TIME, ADVISED PT ON IMPORTANCE OF ADHERENCE TO RT TREATMENT, PT VERBALIZED UNDERSTANDING. NO SOB NOTED. IV ACCESS ON RIGHT UPPER ARM #20G. INTACT AND FLUSHING WELL. PATIENT IS ON TELE MONITOR WITH READING OF SINUS RHYTHM WITH BBB HR- 92. SAFETY MEASURES IN PLACE. CALL LIGHT AND TABLE WITHIN REACH, ENDORSED TO PM SHIFT.
[2022-02-09] MEDS: CEFEPIME 1 GM in IV D5W 50 ML IV SCH (23:22)
[2022-02-10] VITALS (7 sets, daily range): BP systolic 144–186; BP diastolic 88–110
[2022-02-10] MEDS: HYDROMORPHONE 1 MG/1 ML DISP.SYRIN IV PRN ×3 (01:11→14:44)
[2022-02-10] MEDS: ALBUTEROL FS 2.5 MG/3 ML VIAL.NEB NEB SCH ×3 (02:04→12:54)
--- NOTE | 2022-02-10 07:00 | NUR ---
MANAGER CORPORATE RESPONSIBILITY CLOSING NOTES PATIENT RESTING IN BED; AWAKE, A/O X3. TRACHEOSTOMY COLLAR IN PLACE; DRY AND INTACT. ON COOL AEROSOL @ 5LPM; TOLERATING WELL. NOT IN ANY FORM OF RESPIRATORY DISTRESS. NO SOB NOTED. TELE MONITORING WITH READING OF SR HR-77 BPM. IV ACCESS ON SALBADOR 20g: PATENT, INTACT AND SALINE LOCKED. ALL NEEDS MET. SAFETY MEASURES IN PLACE: CALL LIGHT AND TABLE WITHIN REACH, SIDE RAILS UP X2, BED IN LOWEST LOCKED POSITION. ENDORSED TO MORNING SHIFT FOR FRANSICO.
[2022-02-10] MEDS: LEVOTHYROXINE SODIUM 25 MCG TABLET PO SCH (07:21)
--- NOTE | 2022-02-10 07:21 | NUR ---
RADIO INTERFERENCE TROUBLE SHOOTER OPENING NOTES RECEIVED PATIENT AWAKE AND SITTING ON HER BED IN NO ACUTE SIGNS OF DISTRESS. A/O X3-4. ABLE TO MAKE NEEDS KNOWN, NO C/O PAIN OR DISCOMFORTS AT THIS TIME. PT ON COOL AEROSOL TRACH COLLAR @ 5LPM, TOLERATING WELL WITH NO ACUTE RESPIRATORY DISTRESS NOTED. ON TELE-MONITORING WITH CURRENT READING OF SINUS RHYTHM HR-77. IV ACCESS ON RIGHT UPPER ARM G#20 INTACT AND SALINE LOCKED. AV FISTULA FOR HD ON KATERIN IN PLACE WITH + BRUIT AND SHRILL NOTED. SAFETY MEASURES MAINTAINED: CALL LIGHT AND TRAY TABLE WITHIN REACH OF PT, SIDE RAILS UP X2, BED IN LOWEST LOCKED POSITION. WILL CONTINUE TO MONITOR PT ACCORDINGLY.
[2022-02-10] MEDS: PANTOPRAZOLE 40 MG TABLET.DR PO SCH (07:22)
[2022-02-10] MEDS: CALCIUM ACETATE 667 MG CAP/TAB PO SCH ×3 (08:30→17:12)
[2022-02-10] MEDS: CALCITRIOL 0.25 MCG CAPSULE PO SCH (08:30)
[2022-02-10] MEDS: TOPIRAMATE 100 MG TABLET PO SCH ×2 (08:30→16:15)
[2022-02-10] MEDS: SEVELAMER CARBONATE 800 MG TABLET PO SCH ×3 (08:30→17:12)
[2022-02-10] MEDS: FUROSEMIDE 40 MG TABLET PO SCH ×2 (08:30→16:15)
[2022-02-10] MEDS: GABAPENTIN 100 MG CAPSULE PO SCH ×3 (08:31→16:15)
[2022-02-10] MEDS: MONTELUKAST SODIUM (10MG) 10 MG TABLET PO SCH (08:31)
[2022-02-10] MEDS: CARVEDILOL 12.5 MG TABLET PO SCH ×2 (08:31→16:17)
[2022-02-10] MEDS: DOXAZOSIN MESYLATE (4 MG) 4 MG TABLET PO SCH (08:31)
[2022-02-10] MEDS: QUETIAPINE FUMARATE 100 MG TABLET PO SCH ×2 (08:31→16:15)
[2022-02-10] MEDS: ACETYLCYSTEINE 10% SOLN 400 MG/4 ML VIAL NEB SCH ×2 (08:31→15:33)
[2022-02-10] MEDS: NIFEdipine XL (30MG) 30 MG TAB PO SCH (08:32)
[2022-02-10] MEDS: hydrALAZINE HCL 50 MG TABLET PO SCH ×2 (08:32→16:16)
[2022-02-10] MEDS: APIXABAN 5 MG TABLET PO SCH ×2 (08:33→16:17)
[2022-02-10] MEDS: diphenhydrAMINE HCL 50 MG/ML VIAL IV PRN (11:35)
--- NOTE | 2022-02-10 11:37 | NUR ---
RN NOTES PT REQUESTED FOR BENADRYL 25MG IVP JUST AFTER STARTING HEMODIALYSIS.
--- NOTE | 2022-02-10 14:23 | NUR ---
RN NOTES HEMODIALYSIS JUST COMPLETED AND TOLERATED VIA KATERIN AV FISTULA WITH 3,000L OUT.
--- NOTE | 2022-02-10 14:46 | NUR ---
RN NOTES PT C/O ACHING GENERALIZED PAIN, 8/10 SCALE. PRN DILAUDID 1MG IVP ADMINISTERED AT 1444. WILL CONTINUE TO MONITOR AND REASSESS PT.
--- NOTE | 2022-02-10 18:13 | NUR ---
RN DISCHARGED NOTES PT DISCHARGED HOME IN STABLE CONDITION. A/O X4. ABLE TO MAKE NEEDS KNOWN. ALL BELONGINGS ACCOUNTED FOR AND PT SIGNED BELONGINGS LIST. PT WITH TRACH COLLAR SHILEY #6 TO ROOM AIR, TOLERATING WELL WITH NO ACUTE RESPIRATORY DISTRESS NOTED. IV ACCESS ON SALBADOR G#2O REMOVED WITH NO ACTIVE BLEEDING NOTED, DRY PRESSURE DRESSING APPLIED AT SITE. KATERIN AV FISTULA FOR HD IN PLACE WITH POSITIVE BRUIT AND SHRILL PRESENT. NO SKIN ISSUES NOTED. HEALTH TEACHINGS/DISCHARGE INSTRUCTIONS GIVEN TO PT AND VERBALIZED UNDERSTANDING. NAME ARMBAND REMOVED. PT LEFT UNIT @ 1810 VIA WHEELCHAIR ACCOMPANIED BY [employer]. PT'S COUSIN CLAUS WILL TAKE PT'S HOME. MD AND CHARGE NURSE AWARE OF DISCHARGE.
== END 2022-02-10 18:10 | disposition home or self-care (01) | DRG 139 ==
LOC: ER 15:23 → TELE 22:31
PROVIDERS: ADMIT Nurse Practitioner Acute Care; ATTEND Nurse Practitioner Acute Care
PROC: 5A1D70Z Performance of Urinary Filtration, Intermittent, Less than 6 Hours Per Day (ICD-10-PCS; principal; 2022-02-06)
DX: J15.9 Unspecified bacterial pneumonia (principal); I13.2 Hypertensive heart and chronic kidney disease with heart failure and with stage 5 chronic kidney disease, or end stage renal disease; D61.818 Other pancytopenia; I27.20 Pulmonary hypertension, unspecified; N18.6 End stage renal disease; J96.10 Chronic respiratory failure, unspecified whether with hypoxia or hypercapnia; I48.20 Chronic atrial fibrillation, unspecified; Z93.0 Tracheostomy status; Z86.73 Personal history of transient ischemic attack (TIA), and cerebral infarction without residual deficits; E87.5 Hyperkalemia; E03.9 Hypothyroidism, unspecified; G89.4 Chronic pain syndrome; Z95.828 Presence of other vascular implants and grafts; I50.9 Heart failure, unspecified; Z93.1 Gastrostomy status; K21.9 Gastro-esophageal reflux disease without esophagitis; M89.8X9 Other specified disorders of bone, unspecified site; F32.A Depression, unspecified; G40.909 Epilepsy, unspecified, not intractable, without status epilepticus; Z90.49 Acquired absence of other specified parts of digestive tract; Z88.6 Allergy status to analgesic agent; Z88.1 Allergy status to other antibiotic agents; Z91.041 Radiographic dye allergy status; Z88.5 Allergy status to narcotic agent; Z91.013 Allergy to seafood; Z91.048 Other nonmedicinal substance allergy status; Z79.01 Long term (current) use of anticoagulants; Z79.51 Long term (current) use of inhaled steroids; Z79.899 Other long term (current) drug therapy; M81.0 Age-related osteoporosis without current pathological fracture; J45.909 Unspecified asthma, uncomplicated; Z99.2 Dependence on renal dialysis; Z98.891 History of uterine scar from previous surgery; Z91.19 Patient's noncompliance with other medical treatment and regimen; Z86.718 Personal history of other venous thrombosis and embolism; Z86.711 Personal history of pulmonary embolism; E66.9 Obesity, unspecified; Z68.24 Body mass index [BMI] 24.0-24.9, adult; Z20.822 Contact with and (suspected) exposure to COVID-19; Z98.890 Other specified postprocedural states; R60.9 Edema, unspecified
CPT/HCPCS: 31720; 36415; 36600; 71045-TC; 80048-TC; 80076-TC; 83605-TC; 83690-TC; 83735-TC; 84100-TC; 85025-TC; 86706; 87040-TC; 87081-TC; 87340; 90935-TC; 93307-TC; 93970-TC; 94640-TC; 94664-TC; 94799-TC; A4623; A6403; C9803; G0378; J0692; J1170; J1200; J2270; J2405; J7030; J7050; J7060

== ENCOUNTER 2022-03-17 13:21 | Inpatient (IN) | payer MEDICAID, OTHER ==
[~2022-03-17] VITALS: Ht 167.6 cm; Wt 87.1 kg
--- NOTE | 2022-03-17 13:38 | NUR ---
bib self c/o sudden onset chest pain x 2 hours. +nausea. AMBULATORY, PLACED ON BED, AAOX4, COMPLAINS OF LEFT MIDDLE ABDO. QUADRANT PAIN 10/10, ATTACHED TO MONITOR SHOWS SINUS TACHYCARDIA WA-160, BP-185/104, SATURATING AT 98%RA. KNOWN HISTORY OF RENAL FAILURE ON DIALYSIS LEFT.
[2022-03-17] MEDS ORDERED: IV NS 0.9% 1,000 ML BAG IV ONE (14:00)
--- NOTE | 2022-03-17 14:00 | NUR ---
BLOOD DRAWN AND SENT [facility]
[2022-03-17] MEDS ORDERED: ADENOSINE 6 MG/2 ML VIAL ONE ×2 (14:04→14:13)
--- NOTE | 2022-03-17 14:20 | NUR ---
PATIENT WAS DIAGNOSED BY DR BA HAVING SVT ADENOSINE 6MG IVP GIVEN.
--- NOTE | 2022-03-17 14:22 | NUR ---
ADDITIONAL ADENOSINE 12MG IVP GIVEN AND CARDIOVERTED TO NORMAL SINUS RHYTHYM KS-92
[2022-03-17 14:30] LABS: BASOPHILS % (AUTO) 0.7 % (0.0-2.0); EOSINOPHILS % (AUTO) 6.3 % (0.0-6.0); HEMATOCRIT 26 % (33-45); HEMOGLOBIN 8.3 g/dL (11.5-14.8); LYMPHOCYTES # (AUTO) 0.4 K/uL (0.8-4.8); LYMPHOCYTES % (AUTO) 9.2 % (20.0-44.0); MEAN CORPUSCULAR HGB CONC 32 g/dl (31.0-36.0); MEAN CORPUSCULAR VOLUME 97 fL (82-100); MONOCYTES # (AUTO) 0.4 K/uL (0.1-1.30); MONOCYTES % (AUTO) 9.5 % (2.0-12.0); NEUTROPHILS # (AUTO) 2.9 K/uL (1.8-8.9); NEUTROPHILS % (AUTO) 74.3 % (43.0-81.0); PLATELET COUNT (AUTO) 113 K/uL (150-450); RED BLOOD CELL COUNT(AUTO) 2.63 MIL/uL (4.0-5.2); WHITE BLOOD COUNT (AUTO) 3.9 K/uL (4.3-11.0)
[2022-03-17] MEDS ORDERED: ADENOSINE 6 MG/2 ML VIAL IVP ONE (14:30)
[2022-03-17 15:27] LABS: ALANINE AMINOTRANSFERASE 15 U/L (12-78); ALKALINE PHOSPHATASE 104 U/L (46-116); ASPARTATE AMINOTRANSFERASE 19 U/L (15-37); BILIRUBIN,DIRECT 0.2 mg/dL (0.0-0.2); BILIRUBIN,TOTAL 0.6 mg/dL (0.2-1.0); CARBON DIOXIDE 24 mmol/L (21-32); CHLORIDE 103 mmol/L (98-107); GLUCOSE 100 mg/dL (74-106); POTASSIUM 6.1 mmol/L (3.5-5.1); SODIUM SERUM 142 mmol/L (136-145); TOTAL PROTEIN, SERUM 8.2 g/dL (6.4-8.2)
[2022-03-17] MEDS ORDERED: AMIODARONE 150 MG in IV D5W 100 ML IV ONE (15:30)
[2022-03-17] MEDS ORDERED: AMIODARONE 450 MG in IV D5W 250 ML IV ONE (15:30)
[2022-03-17 15:35] LABS: CREATININE 12.5 mg/dL (0.6-1.3); UREA NITROGEN, BLOOD 111 mg/dL (7-18)
--- NOTE | 2022-03-17 15:35 | NUR ---
SWAB FOR COVID19 SENT TO LAB
[2022-03-17] MEDS ORDERED: INSULIN REGULAR, HUMAN 100 UNIT/ML 10 ML VIAL ONE (15:59)
[2022-03-17] MEDS ORDERED: CALCIUM CHLORIDE 1,000 MG/10 ML DISP.SYRIN ONE (15:59)
[2022-03-17] MEDS ORDERED: SODIUM BICARBONATE SYR 50 MEQ/50 ML DISP.SYRIN ONE (15:59)
[2022-03-17] MEDS ORDERED: DEXTROSE 50%-WATER 50 ML DISP.SYRIN ONE ×3 (15:59→18:25)
[2022-03-17] MEDS ORDERED: CALCIUM CHLORIDE 1,000 MG/10 ML DISP.SYRIN IV ONE (16:00)
[2022-03-17] MEDS ORDERED: SODIUM BICARBONATE SYR 50 MEQ/50 ML DISP.SYRIN IV ONE (16:00)
[2022-03-17] MEDS ORDERED: SODIUM POLYSTYRENE SULFONATE 15 G/60 ML BOTTLE PO ONE (16:00)
[2022-03-17] MEDS ORDERED: INSULIN REGULAR, HUMAN 100 UNIT/ML 10 ML VIAL IV ONE (16:00)
[2022-03-17] MEDS ORDERED: DEXTROSE 50%-WATER 50 ML DISP.SYRIN IV ONE (16:00)
[2022-03-17] MEDS ORDERED: ALBUTEROL FS 2.5 MG/3 ML VIAL.NEB NEB PRN (16:30)
[2022-03-17] MEDS ORDERED: HYDROMORPHONE 1 MG/1 ML DISP.SYRIN IV ONE (16:30)
[2022-03-17] MEDS ORDERED: HYDROMORPHONE 1 MG/1 ML DISP.SYRIN ONE (16:35)
--- NOTE | 2022-03-17 16:38 | NUR ---
room 114-1
[2022-03-17] MEDS ORDERED: DULO20CA19 PO (16:45)
[2022-03-17] MEDS ORDERED: CALC0.5C3 PO (16:45)
[2022-03-17] MEDS ORDERED: ASPI-1169 PO (16:45)
[2022-03-17] MEDS ORDERED: AMLO-213 PO (16:45)
[2022-03-17] MEDS: GABAPENTIN 100 MG CAPSULE PO SCH (17:00)
[2022-03-17] MEDS: TOPIRAMATE 100 MG TABLET PO SCH (17:00)
[2022-03-17] MEDS: FUROSEMIDE 40 MG TABLET PO SCH (17:00)
[2022-03-17] MEDS: APIXABAN 5 MG TABLET PO SCH (17:00)
[2022-03-17] MEDS ORDERED: QUETIAPINE FUMARATE 100 MG TABLET PO SCH (17:00)
[2022-03-17] MEDS: hydrALAZINE HCL 50 MG TABLET PO SCH (17:00)
--- NOTE | 2022-03-17 17:09 | NUR ---
REPORT GIVEN TO [address] ROOM 114-1 FOR FRANSICO
[2022-03-17] MEDS ORDERED: SODIUM POLYSTYRENE SULFONATE 15 G/60 ML BOTTLE ONE (17:11)
[2022-03-17] MEDS ORDERED: AMIODARONE 450 MG in IV D5W 241 ML IV PRN (17:30)
--- NOTE | 2022-03-17 17:55 | NUR ---
RECHECKED GLU- 21 DR BA AWARE ORDERS DEXTROSE 50% 50ML IV GIVEN.
[2022-03-17] MEDS: CALCIUM ACETATE 667 MG CAP/TAB PO SCH (18:00)
[2022-03-17] MEDS: SEVELAMER CARBONATE 800 MG TABLET PO SCH (18:00)
--- NOTE | 2022-03-17 18:23 | NUR ---
RECHECKED GLU- 28 DR BA AWARE ORDERS ANOTHER DEXTROSE 50% 50ML BUT PHARMACY DOESNT HAVE STOCK, COMENCED ON DEXTROSE 10% 250MLS BOLUS.
--- NOTE | 2022-03-17 18:45 | NUR ---
PATIENT ADMIOTTED AND ENDORSED TO [address] THAT PATIENT HAS LOW BLOOD GLUCOSE.
[2022-03-17 19:04] VITALS: BP 190/100
[2022-03-17] MEDS: diphenhydrAMINE HCL 50 MG/ML VIAL IV PRN (19:13)
--- NOTE | 2022-03-17 19:30 | NUR ---
PT RECEIVED FROM AM NURSE AWAKE, SITTING ON BED. A/O X4. ON ROOM AIR. NOT IN DISTRESS, NO SOB. BREATHING EVEN AND UNLABORED. WITH HD NURSE AT BEDSIDE. ONGOING HD, PT TOLERATING PROCEDURE WELL. LT ARM HD CATH C/D/I. IV ACCESS ON SALBADOR G#20 PATENT AND FLUSHING WELL. PT IS AMBULATORY WITH ASSIST AND IS CONTINENT. SAFETY PRECAUTIONS IN PLACE. HEAD OF BED SLIGHTLY ELEVATED, BED LOW, SIDE RAILS UP X2, BED ALARM ON, CALL LIGHT WITHIN REACH. WILL CONTINUE PLAN OF CARE AND MONITOR.
[2022-03-17] MEDS ORDERED: DEXTROSE 50%-WATER 50 ML DISP.SYRIN IVP ONE (20:30)
[2022-03-17] MEDS: hydrALAZINE HCL IV 20 MG VIAL IV PRN (21:39)
--- NOTE | 2022-03-17 21:42 | NUR ---
HD ONGOING. BP 190/100. PRN APRESOLINE 20MG IV GIVEN ORDERED AND NEEDED. WILL CONTINUE TO MONITOR.
--- NOTE | 2022-03-17 22:27 | NUR ---
HD DONE WITH AN OUTPUT OF 2L. PT TOLERATED PROCEDURE WELL.
[2022-03-17] MEDS: Sodium Chloride 77 MEQ in IV 10% DEXTROSE 1,000 ML IV SCH (22:46)
[2022-03-17] MEDS: MONTELUKAST SODIUM (10MG) 10 MG TABLET PO SCH (22:47)
[2022-03-17] MEDS: CARVEDILOL 12.5 MG TABLET PO SCH (22:47)
[2022-03-17] MEDS: QUETIAPINE FUMARATE 100 MG TABLET PO SCH (22:49)
[2022-03-17 23:04] VITALS: BP 180/79
[2022-03-17] MEDS: HYDROMORPHONE INJ 2 MG/ML DISP.SYRIN IV PRN (23:10)
--- NOTE | 2022-03-18 01:03 | NUR ---
BP 190/100. PRN MED NOT DUE YET. CHARGE NURSE INFORMED. NO NEW ORDER AT THIS TIME.
[2022-03-18] MEDS ORDERED: CLONIDINE HCL 0.1 MG TABLET PO ONE (01:30)
[2022-03-18] MEDS: ONDANSETRON HCL/PF 4 MG/2 ML VIAL IV PRN ×3 (01:44→17:47)
[2022-03-18 03:16] LABS: CALCIUM, SERUM 8.9 mg/dL (8.5-10.1); POTASSIUM 4.5 mmol/L (3.5-5.1)
[2022-03-18 03:18] LABS: CREATININE 8.2 mg/dL (0.6-1.3)
[2022-03-18 04:00] VITALS: BP 170/105
[2022-03-18] MEDS: hydrALAZINE HCL IV 20 MG VIAL IV PRN (04:48)
[2022-03-18] MEDS: HYDROMORPHONE INJ 2 MG/ML DISP.SYRIN IV PRN ×3 (04:50→21:30)
--- NOTE | 2022-03-18 06:40 | NUR ---
PT ASLEEP IN BED ON SITTING POSITION, OFFERED TO LOWER THE HEAD OF BED BUT PT REFUSED. A/O X4. ON ROOM AIR. NOT IN DISTRESS, NO SOB. BREATHING EVEN AND UNLABORED. LT ARM HD CATH C/D/I. IV ACCESS ON SALBADOR G#20 PATENT AND FLUSHING WELL. PT IS AMBULATORY WITH ASSIST AND IS CONTINENT. SAFETY PRECAUTIONS MAINTAINED. HEAD OF BED SLIGHTLY ELEVATED, BED LOW, SIDE RAILS UP X2, BED ALARM ON, CALL LIGHT WITHIN REACH. WILL ENDORSE TO NEXT NURSE ON DUTY FOR CONTINUITY OF CARE.
[2022-03-18 06:50] LABS: BASOPHILS % (AUTO) 0.9 % (0.0-2.0); EOSINOPHILS % (AUTO) 6.3 % (0.0-6.0); HEMATOCRIT 22 % (33-45); HEMOGLOBIN 7.4 g/dL (11.5-14.8); LYMPHOCYTES # (AUTO) 0.3 K/uL (0.8-4.8); MEAN CORPUSCULAR HGB CONC 33 g/dl (31.0-36.0); MEAN CORPUSCULAR VOLUME 96 fL (82-100); MONOCYTES # (AUTO) 0.5 K/uL (0.1-1.30); MONOCYTES % (AUTO) 16.4 % (2.0-12.0); NEUTROPHILS % (AUTO) 65.4 % (43.0-81.0); PLATELET COUNT (AUTO) 101 K/uL (150-450); RED BLOOD CELL COUNT(AUTO) 2.32 MIL/uL (4.0-5.2)
--- NOTE | 2022-03-18 07:30 | NUR ---
RN NOTES PT IN BED, ALERT/ORIENTED X 4, ON ROOM AIR, O2 SAT AT 96%, NO SOB, RESPIRATION UNLABORED, SINUS RHYTHM ON MONITOR, DENIES ANY PAIN/DISCOMFORT, LT ARM HD CATH C/D/I. THRILL PRESENT, IV ACCESS ON SALBADOR G#20 PATENT AND FLUSHING WELL. WITH IVF INFUSING WELL. PT IS AMBULATORY WITH ASSIST AND IS CONTINENT. SAFETY PRECAUTIONS IN PLACE. HEAD OF BED SLIGHTLY ELEVATED, BED LOW, SIDE RAILS UP X2, BED ALARM ON, CALL LIGHT WITHIN REACH. WILL CONTINUE PLAN OF CARE AND MONITOR.
--- NOTE | 2022-03-18 07:44 | NUR ---
RN NOTES: SEEN BY DR. WARE, DOWNGRADED FROM GIORGI TO TELE STATUS.. STABLE
[2022-03-18 07:51] LABS: CALCIUM, SERUM 8.7 mg/dL (8.5-10.1); PHOSPHORUS 6.3 mg/dL (2.5-4.9); POTASSIUM 4.8 mmol/L (3.5-5.1)
[2022-03-18 07:52] LABS: CREATININE 8.7 mg/dL (0.6-1.3)
[2022-03-18 08:00] VITALS: BP 148/96
[2022-03-18] MEDS: LEVOTHYROXINE SODIUM 25 MCG TABLET PO SCH (08:46)
[2022-03-18] MEDS: CALCIUM ACETATE 667 MG CAP/TAB PO SCH ×3 (08:46→17:39)
[2022-03-18] MEDS: SEVELAMER CARBONATE 800 MG TABLET PO SCH ×3 (08:47→17:39)
[2022-03-18] MEDS: ASPIRIN 81 MG TAB.CHEW PO SCH (08:48)
[2022-03-18] MEDS: hydrALAZINE HCL 50 MG TABLET PO SCH ×2 (08:48→17:41)
[2022-03-18] MEDS: DOXAZOSIN MESYLATE (4 MG) 4 MG TABLET PO SCH (08:48)
[2022-03-18] MEDS: TOPIRAMATE 100 MG TABLET PO SCH ×2 (08:49→17:40)
[2022-03-18] MEDS: GABAPENTIN 100 MG CAPSULE PO SCH ×3 (08:49→17:39)
[2022-03-18] MEDS: FUROSEMIDE 40 MG TABLET PO SCH ×2 (08:49→17:40)
[2022-03-18] MEDS: CALCITRIOL 0.25 MCG CAPSULE PO SCH (08:49)
[2022-03-18] MEDS: CARVEDILOL 12.5 MG TABLET PO SCH ×2 (08:50→20:09)
[2022-03-18] MEDS: NIFEdipine XL (30MG) 30 MG TAB PO SCH (08:52)
[2022-03-18] MEDS: DULOXETINE HCL 20 MG CAPSULE.DR PO SCH (08:52)
[2022-03-18] MEDS: AMLODIPINE BESYLATE 10 MG TABLET PO SCH (08:56)
[2022-03-18] MEDS: APIXABAN 5 MG TABLET PO SCH ×2 (08:57→17:42)
--- NOTE | 2022-03-18 09:30 | NUR ---
RN NOTES DUE MEDS GIVEN
[2022-03-18 11:12] LABS: EOSINOPHILS % (MANUAL) 6 % (0-4); LYMPHOCYTES % (MANUAL) 14 % (16-48); MONOCYTES % (MANUAL) 11 % (0-11.0); NEUTROPHILS % (MANUAL) 69 (42-76)
[2022-03-18 12:00] VITALS: BP 121/69
[2022-03-18 16:00] VITALS: BP 116/74
[2022-03-18] MEDS: diphenhydrAMINE HCL 50 MG/ML VIAL IV PRN (17:47)
--- NOTE | 2022-03-18 18:56 | NUR ---
RN NOTES ALL NEEDS MET AT HIS TIME. PATIENT RESTING COMFORTABLY. NOT IN ANY DISTRESS. STABLE. WILL ENDORSE TO NEXT SHIFT FOR FRANSICO.
[2022-03-18 20:00] VITALS: BP 134/88
[2022-03-18] MEDS: Sodium Chloride 77 MEQ in IV 10% DEXTROSE 1,000 ML IV SCH (20:25)
[2022-03-18] MEDS: MONTELUKAST SODIUM (10MG) 10 MG TABLET PO SCH (21:02)
[2022-03-18] MEDS: QUETIAPINE FUMARATE 100 MG TABLET PO SCH (21:02)
--- NOTE | 2022-03-18 21:57 | NUR ---
PATIENT CONTINUE SITTING ON EDGE OF THE BED, EDUCATION PROVIDED, AND REMAINED HER THE IMPORTANCE TO LIE DOWN ON THE BED, AND PREVENT FALL AND INJURIES, NOTED PATIENT FALLING ASLEEP, STILL REFUSED, WILL CONTINUE TO MONITOR CLOSELY.
[2022-03-19] VITALS: BP 119/73
[2022-03-19 04:00] VITALS: BP 134/80
[2022-03-19] MEDS: HYDROMORPHONE INJ 2 MG/ML DISP.SYRIN IV PRN ×3 (04:31→17:36)
--- NOTE | 2022-03-19 06:17 | NUR ---
END OF THE SHIFT, NO SIGNIFICANT CHANGE IN CONDITION DURING THE NIGHT, WITH BLOOD PRESSURE WNL, WELL CONTROLLED 110S-130S SYSTOLIC, ON ROOM AIR NO SOB/ACUTE DISTRESS DURING THE NIGHT, NSR IN TELE MONITOR, SALBADOR MIDLINE IN PLACE, IVF INFUSING ORDERED, GOT AN ORDER FOR BENADRYL DURING THE NIGHT, WHEN ABOUT TO ADMINISTER, PATIENT SLEEPING AND NEVER COMPLAINED OF ITCHING, DID NOT ASK FOR BENADRYL AGAIN, PAIN MANAGEMENT, NO S/S OF N/V DURING THE NIGHT WILL ENDORSE CONTINUITY OF CARE TO ONCOMING NURSE.
--- NOTE | 2022-03-19 07:30 | NUR ---
RN NOTES PT IN BED, ALERT/ORIENTED X 4, ON ROOM AIR, O2 SAT AT 100%, NO SOB, RESPIRATION UNLABORED, SINUS RHYTHM HR 68 ON MONITOR, DENIES ANY PAIN/DISCOMFORT, LT ARM HD CATH C/D/I. THRILL PRESENT, IV ACCESS ON SALBADOR G#20 PATENT AND FLUSHING WELL. WITH IVF BUT REFUSE TO BE HOOKED UP. RENAL DIET. PT IS AMBULATORY WITH ASSIST AND IS CONTINENT. SAFETY PRECAUTIONS IN PLACE. HEAD OF BED SLIGHTLY ELEVATED, BED LOW, SIDE RAILS UP X2, BED ALARM ON, CALL LIGHT WITHIN REACH. WILL CONTINUE PLAN OF CARE AND MONITOR.
[2022-03-19 08:00] VITALS: BP 128/81
[2022-03-19] MEDS: LEVOTHYROXINE SODIUM 25 MCG TABLET PO SCH (08:20)
[2022-03-19] MEDS: TOPIRAMATE 100 MG TABLET PO SCH ×2 (08:21→17:01)
[2022-03-19] MEDS: GABAPENTIN 100 MG CAPSULE PO SCH ×3 (08:21→17:01)
[2022-03-19] MEDS: FUROSEMIDE 40 MG TABLET PO SCH ×2 (08:21→17:00)
[2022-03-19] MEDS: DOXAZOSIN MESYLATE (4 MG) 4 MG TABLET PO SCH (08:22)
[2022-03-19] MEDS: SEVELAMER CARBONATE 800 MG TABLET PO SCH ×3 (08:22→17:03)
[2022-03-19] MEDS: ASPIRIN 81 MG TAB.CHEW PO SCH (08:22)
[2022-03-19] MEDS: NIFEdipine XL (30MG) 30 MG TAB PO SCH (08:23)
[2022-03-19] MEDS: AMLODIPINE BESYLATE 10 MG TABLET PO SCH (08:23)
[2022-03-19] MEDS: CARVEDILOL 12.5 MG TABLET PO SCH ×2 (08:23→22:23)
[2022-03-19] MEDS: CALCITRIOL 0.25 MCG CAPSULE PO SCH (08:24)
[2022-03-19] MEDS: CALCIUM ACETATE 667 MG CAP/TAB PO SCH ×3 (08:24→17:03)
[2022-03-19] MEDS: DULOXETINE HCL 20 MG CAPSULE.DR PO SCH (08:24)
[2022-03-19] MEDS: hydrALAZINE HCL 50 MG TABLET PO SCH ×2 (08:25→16:58)
[2022-03-19] MEDS: APIXABAN 5 MG TABLET PO SCH ×2 (08:26→17:04)
--- NOTE | 2022-03-19 09:30 | NUR ---
RN NOTES DUE MEDS GIVEN
--- NOTE | 2022-03-19 09:35 | NUR ---
RN NOTES DC TELEMETRY PER DR WARE
[2022-03-19 10:07] LABS: BASOPHILS % (AUTO) 0.9 % (0.0-2.0); EOSINOPHILS % (AUTO) 12.3 % (0.0-6.0); HEMATOCRIT 22 % (33-45); LYMPHOCYTES # (AUTO) 0.3 K/uL (0.8-4.8); LYMPHOCYTES % (AUTO) 11.9 % (20.0-44.0); MEAN CORPUSCULAR HGB CONC 33 g/dl (31.0-36.0); MEAN CORPUSCULAR VOLUME 98 fL (82-100); MONOCYTES # (AUTO) 0.4 K/uL (0.1-1.30); MONOCYTES % (AUTO) 17.7 % (2.0-12.0); NEUTROPHILS # (AUTO) 1.3 K/uL (1.8-8.9); NEUTROPHILS % (AUTO) 57.2 % (43.0-81.0); PLATELET COUNT (AUTO) 98 K/uL (150-450); RED BLOOD CELL COUNT(AUTO) 2.22 MIL/uL (4.0-5.2); WHITE BLOOD COUNT (AUTO) 2.2 K/uL (4.3-11.0)
[2022-03-19 10:28] LABS: CALCIUM, SERUM 8.2 mg/dL (8.5-10.1); MAGNESIUM 1.9 mg/dL (1.8-2.4); PHOSPHORUS 5.8 mg/dL (2.5-4.9); POTASSIUM 4.4 mmol/L (3.5-5.1)
--- NOTE | 2022-03-19 10:35 | NUR ---
RN NOTES HGB LEVL 7, RELAYED TO DR. SHANKAR FRANZ. NNO
[2022-03-19 10:43] LABS: CREATININE 7.5 mg/dL (0.6-1.3)
[2022-03-19 12:00] VITALS: BP 133/81
[2022-03-19] MEDS: Sodium Chloride 77 MEQ in IV 10% DEXTROSE 1,000 ML IV SCH (13:13)
[2022-03-19] MEDS: diphenhydrAMINE HCL 50 MG/ML VIAL IV PRN (13:39)
[2022-03-19 16:00] VITALS: BP 156/86
--- NOTE | 2022-03-19 18:38 | NUR ---
RN NOTES ALL NEEDS MET AT HIS TIME. PATIENT RESTING COMFORTABLY. NOT IN ANY DISTRESS. STABLE. REFUSED IVF. HD COMPLETED TODAY WITH 2.5 LITER OUTPUT. WILL ENDORSE TO NEXT SHIFT FOR FRANSICO.
--- NOTE | 2022-03-19 19:30 | NUR ---
PT AWAKE IN BED ON SITTING POSITION, OFFERED TO LOWER THE HEAD OF BED BUT PT REFUSED. A/O X4. ON ROOM AIR. NOT IN DISTRESS, NO SOB. BREATHING EVEN AND UNLABORED. LT ARM HD CATH C/D/I. IV ACCESS ON SALBADOR G#20 PATENT AND FLUSHING WELL. PT IS AMBULATORY WITH ASSIST AND IS CONTINENT. SAFETY PRECAUTIONS MAINTAINED. HEAD OF BED ELEVATED REQUESTED BY PT, BED LOW, SIDE RAILS UP X2, BED ALARM ON, CALL LIGHT WITHIN REACH. WILL CONTINUE PLAN OF CARE.
[2022-03-19 20:00] VITALS: BP 124/78
[2022-03-19 21:55] LABS: EOSINOPHILS % (MANUAL) 4 % (0-4); LYMPHOCYTES % (MANUAL) 18 % (16-48); MONOCYTES % (MANUAL) 12 % (0-11.0); NEUTROPHILS % (MANUAL) 66 (42-76)
[2022-03-19] MEDS: MUPIROCIN OINT 2% 22 GM TUBE NS SCH (22:22)
[2022-03-19] MEDS: MONTELUKAST SODIUM (10MG) 10 MG TABLET PO SCH (22:25)
[2022-03-19] MEDS: QUETIAPINE FUMARATE 100 MG TABLET PO SCH (22:25)
[2022-03-20] MEDS: ONDANSETRON HCL/PF 4 MG/2 ML VIAL IV PRN (00:41)
[2022-03-20] MEDS: HYDROMORPHONE INJ 2 MG/ML DISP.SYRIN IV PRN ×3 (00:41→14:27)
[2022-03-20 04:00] VITALS: BP 126/73
[2022-03-20 06:10] LABS: BASOPHILS % (AUTO) 0.5 % (0.0-2.0); EOSINOPHILS % (AUTO) 8.7 % (0.0-6.0); HEMATOCRIT 21 % (33-45); LYMPHOCYTES # (AUTO) 0.3 K/uL (0.8-4.8); MEAN CORPUSCULAR HGB CONC 32 g/dl (31.0-36.0); MEAN CORPUSCULAR VOLUME 98 fL (82-100); MONOCYTES # (AUTO) 0.4 K/uL (0.1-1.30); MONOCYTES % (AUTO) 18.6 % (2.0-12.0); NEUTROPHILS # (AUTO) 1.3 K/uL (1.8-8.9); NEUTROPHILS % (AUTO) 60.2 % (43.0-81.0); PLATELET COUNT (AUTO) 90 K/uL (150-450); RED BLOOD CELL COUNT(AUTO) 2.17 MIL/uL (4.0-5.2); WHITE BLOOD COUNT (AUTO) 2.2 K/uL (4.3-11.0)
[2022-03-20 06:24] LABS: CALCIUM, SERUM 7.8 mg/dL (8.5-10.1); CREATININE 6.4 mg/dL (0.6-1.3); MAGNESIUM 1.9 mg/dL (1.8-2.4); PHOSPHORUS 5.7 mg/dL (2.5-4.9); POTASSIUM 4.9 mmol/L (3.5-5.1)
[2022-03-20 06:41] LABS: HEMOGLOBIN 6.8 g/dL (11.5-14.8)
--- NOTE | 2022-03-20 06:45 | NUR ---
Hgb 6.8. Charge nurses informed. Awaiting orders.
--- NOTE | 2022-03-20 07:28 | NUR ---
PATIENT IN BED, A/O X 1, OPEN EYES. S/P EXTUBATION 03/17/22, ON ROOM AIR, O2 SAT AT 98%. RESPIRATION UNLABORED, NO SOB NOTED. AFEBRILE, NO S/S OF DISTRESS NOTED. WITH SALBADOR MID LINE G#18 PATENT AND FLUSHES WELL, LEFT NARE NG TUBE, PATENT AND INTACT, VERIFIED PLACEMENT BY AUSCULTATION. WITH ONGOING GLUCERNA 1.2 @ 65 ML/HR. ENG CATHETER PATENT INTACT DRAINING CLEAR YELLOW URINE VIA GRAVITY. BILATERAL SOFT WRIST RESTRAINT, RELEASED AND CHECKED FOR CIRCULATION, ALL SAFETY PRECAUTION MAINTAINED, HEAD OF BED SLIGHTLY ELEVATED, BED IN LOWEST POSITION, LOCKED. SIDE RAILS UP X3, BED ALARM ON, CALL LIGHT WITH IN REACH. WILL ENDORSE TO NEXT NURSE ON DUTY FOR CONTINUITY OF CARE. Addendum: 03/20/22 at 0734 by KORI WILKINS RN PLEASE DISREGARD FOR DIFFERENT PT.
--- NOTE | 2022-03-20 07:28 | NUR ---
PT ASLEEP IN BED ON SITTING POSITION, OFFERED TO LOWER THE HEAD OF BED BUT PT REFUSED. A/O X4. ON ROOM AIR. NOT IN DISTRESS, NO SOB. BREATHING EVEN AND UNLABORED. LT ARM HD CATH C/D/I. IV ACCESS ON SALBADOR G#20 PATENT AND INFUSING . PT IS AMBULATORY WITH ASSIST AND IS CONTINENT. DUE MEDS AND PRN MEDS GIVEN NEEDED AND ORDERED. SAFETY PRECAUTIONS MAINTAINED. HEAD OF BED ELEVATED REQUESTED BY PT, BED LOW, SIDE RAILS UP X2, BED ALARM ON, CALL LIGHT WITHIN REACH. WILL ENDORSE TO NEXT NURSE ON DUTY FOR CONTINUITY OF CARE.
--- NOTE | 2022-03-20 07:31 | NUR ---
RN OPENING NOTES PT IN BED, ALERT/ORIENTED X 4, ON ROOM AIR, NO SOB, RESPIRATION UNLABORED, SINUS RHYTHM ON MONITOR, DENIES ANY PAIN/DISCOMFORT, LT ARM HD CATH C/D/I. THRILL PRESENT, IV ACCESS ON SALBADOR G#20 PATENT AND FLUSHING WELL. WITH IVF INFUSING WELL. PT IS AMBULATORY WITH ASSIST AND IS CONTINENT. SAFETY PRECAUTIONS IN PLACE. HEAD OF BED SLIGHTLY ELEVATED, BED LOW, SIDE RAILS UP X2, BED ALARM ON, CALL LIGHT WITHIN REACH.
[2022-03-20 08:00] VITALS: BP 119/84
[2022-03-20] MEDS: FUROSEMIDE 40 MG TABLET PO SCH ×2 (08:22→17:18)
[2022-03-20] MEDS: AMLODIPINE BESYLATE 10 MG TABLET PO SCH (08:23)
[2022-03-20] MEDS: GABAPENTIN 100 MG CAPSULE PO SCH ×3 (08:23→17:18)
[2022-03-20] MEDS: hydrALAZINE HCL 50 MG TABLET PO SCH ×2 (08:23→17:19)
[2022-03-20] MEDS: DOXAZOSIN MESYLATE (4 MG) 4 MG TABLET PO SCH (08:23)
[2022-03-20] MEDS: CALCIUM ACETATE 667 MG CAP/TAB PO SCH ×3 (08:24→17:18)
[2022-03-20] MEDS: CARVEDILOL 12.5 MG TABLET PO SCH ×2 (08:24→21:03)
[2022-03-20] MEDS: LEVOTHYROXINE SODIUM 25 MCG TABLET PO SCH (08:24)
[2022-03-20] MEDS: DULOXETINE HCL 20 MG CAPSULE.DR PO SCH (08:24)
[2022-03-20] MEDS: ASPIRIN 81 MG TAB.CHEW PO SCH (08:24)
[2022-03-20] MEDS: NIFEdipine XL (30MG) 30 MG TAB PO SCH (08:24)
[2022-03-20] MEDS: CALCITRIOL 0.25 MCG CAPSULE PO SCH (08:24)
[2022-03-20] MEDS: TOPIRAMATE 100 MG TABLET PO SCH ×2 (08:24→17:18)
[2022-03-20] MEDS: APIXABAN 5 MG TABLET PO SCH ×2 (08:25→17:00)
[2022-03-20] MEDS: SEVELAMER CARBONATE 800 MG TABLET PO SCH ×3 (08:25→17:18)
--- NOTE | 2022-03-20 08:25 | NUR ---
RN NOTE HGB 6.8 HELD ELAINE WILL INFORM MD
[2022-03-20] MEDS: Sodium Chloride 77 MEQ in IV 10% DEXTROSE 1,000 ML IV SCH (09:04)
[2022-03-20] MEDS: MUPIROCIN OINT 2% 22 GM TUBE NS SCH ×2 (09:22→21:04)
[2022-03-20] MEDS: diphenhydrAMINE HCL 50 MG/ML VIAL IV PRN ×2 (09:36→17:23)
[2022-03-20 11:10] LABS: BAND % (MANUAL) 2 % (0.0-5.0); EOSINOPHILS % (MANUAL) 7 % (0-4); LYMPHOCYTES % (MANUAL) 13 % (16-48); MONOCYTES % (MANUAL) 12 % (0-11.0); NEUTROPHILS % (MANUAL) 66 (42-76)
[2022-03-20 14:25] VITALS: BP 115/78
[2022-03-20 14:40] VITALS: BP 105/59
[2022-03-20 16:00] VITALS: BP 104/64
--- NOTE | 2022-03-20 18:31 | NUR ---
RN CLOSING NOTE PT AWAKE IN BED ON SITTING POSITION, OFFERED TO LOWER THE HEAD OF BED BUT PT REFUSED. A/O X4. ON ROOM AIR. NOT IN DISTRESS, NO SOB. BREATHING EVEN AND UNLABORED. LT ARM HD CATH C/D/I. IV ACCESS ON SALBADOR G#20 PATENT AND FLUSHING WELL. PT IS AMBULATORY WITH ASSIST AND IS CONTINENT. SAFETY PRECAUTIONS MAINTAINED. HEAD OF BED ELEVATED REQUESTED BY PT, BED LOW, SIDE RAILS UP X2, BED ALARM ON, CALL LIGHT WITHIN REACH.
--- NOTE | 2022-03-20 19:41 | NUR ---
MS RN OPENING NOTES RECEIVED PT AWAKE SITTING ON BED, A/O X4. ON ROOM AIR. NOT IN DISTRESS, NO SOB. BREATHING EVEN AND UNLABORED. LT ARM HD CATH C/D/I. IV ACCESS ON SALBADOR G#20 INTACT, PATENT AND INFUSING NACL @ 50 ML/HR . PT IS AMBULATORY WITH ASSIST AND IS CONTINENT. SAFETY PRECAUTIONS MAINTAINED. HEAD OF BED ELEVATED REQUESTED BY PT, BED LOWEST AND LOCKED POSITION, SIDE RAILS UP X2, BED ALARM ON, CALL LIGHT WITHIN REACH. WILL CONTINUE TO MONITOR THROUGHOUT THE SHIFT.
[2022-03-20] MEDS: MONTELUKAST SODIUM (10MG) 10 MG TABLET PO SCH (21:02)
[2022-03-20] MEDS: QUETIAPINE FUMARATE 100 MG TABLET PO SCH (21:03)
[2022-03-20 21:17] LABS: BASOPHILS % (AUTO) 0.6 % (0.0-2.0); EOSINOPHILS % (AUTO) 10.3 % (0.0-6.0); HEMATOCRIT 29 % (33-45); HEMOGLOBIN 8.5 g/dL (11.5-14.8); LYMPHOCYTES # (AUTO) 0.3 K/uL (0.8-4.8); LYMPHOCYTES % (AUTO) 10.5 % (20.0-44.0); MEAN CORPUSCULAR HGB CONC 29 g/dl (31.0-36.0); MEAN CORPUSCULAR VOLUME 109 fL (82-100); MONOCYTES # (AUTO) 0.4 K/uL (0.1-1.30); MONOCYTES % (AUTO) 14.6 % (2.0-12.0); NEUTROPHILS # (AUTO) 1.6 K/uL (1.8-8.9); PLATELET COUNT (AUTO) 101 K/uL (150-450); WHITE BLOOD COUNT (AUTO) 2.6 K/uL (4.3-11.0)
[2022-03-20 21:46] LABS: EOSINOPHILS % (MANUAL) 12 % (0-4); LYMPHOCYTES % (MANUAL) 20 % (16-48); MONOCYTES % (MANUAL) 7 % (0-11.0); NEUTROPHILS % (MANUAL) 61 (42-76)
[2022-03-21] VITALS: BP 120/59
[2022-03-21] MEDS: HYDROMORPHONE INJ 2 MG/ML DISP.SYRIN IV PRN ×3 (00:20→12:51)
[2022-03-21] MEDS: diphenhydrAMINE HCL 50 MG/ML VIAL IV PRN ×2 (00:52→07:35)
[2022-03-21] MEDS: Sodium Chloride 77 MEQ in IV 10% DEXTROSE 1,000 ML IV SCH (05:05)
--- NOTE | 2022-03-21 07:05 | NUR ---
MS RN OPENING NOTES PT AWAKE SITTING ON BED, A/O X4. ON ROOM AIR WITH 02 SAT OF 98%. NO SOB NOTED, BREATHING EVEN AND UNLABORED. LT ARM HD CATH C/D/I. IV ACCESS ON SALBADOR G#20 INTACT, FLUSHED AND PATENT . PT IS AMBULATORY WITH ASSIST AND IS CONTINENT. ALL SAFETY PRECAUTIONS IN PLACE, HEAD OF BED ELEVATED IN LOWEST AND LOCKED POSITION, SIDE RAILS UP X2, BED ALARM ON, CALL LIGHT WITHIN REACH. WILL CONTINUE TO MONITOR THROUGHOUT SHIFT.
--- NOTE | 2022-03-21 07:12 | NUR ---
MS RN CLOSING NOTES PT AWAKE SITTING ON BED, A/O X4. ON ROOM AIR. NOT IN DISTRESS, NO SOB. BREATHING EVEN AND UNLABORED. LT ARM HD CATH C/D/I. IV ACCESS ON SALBADOR G#20 INTACT, PATENT AND INFUSING NACL @ 50 ML/HR . PT IS AMBULATORY WITH ASSIST AND IS CONTINENT. SAFETY PRECAUTIONS MAINTAINED. HEAD OF BED ELEVATED REQUESTED BY PT, ALL DUE MEDS GIVEN, KEPT DRY AND CLEAN, BED LOWEST AND LOCKED POSITION, SIDE RAILS UP X2, BED ALARM ON, CALL LIGHT WITHIN REACH. WILL ENDORSE TO AM SHIFT NURSE FOR CONTINUITY OF CARE.
[2022-03-21] MEDS: LEVOTHYROXINE SODIUM 25 MCG TABLET PO SCH (07:35)
[2022-03-21 08:34] LABS: CALCIUM, SERUM 8.1 mg/dL (8.5-10.1); MAGNESIUM 2.3 mg/dL (1.8-2.4); PHOSPHORUS 6.2 mg/dL (2.5-4.9); POTASSIUM 5.5 mmol/L (3.5-5.1)
[2022-03-21 08:44] LABS: CREATININE 8.5 mg/dL (0.6-1.3)
--- NOTE | 2022-03-21 10:14 | NUR ---
RN NOTE GAVE BENADRYL IV FOR HEMODIALYSIS AT THIS TIME.
[2022-03-21] MEDS ORDERED: diphenhydrAMINE HCL 50 MG/ML VIAL IV ONE (10:30)
[2022-03-21] MEDS: SEVELAMER CARBONATE 800 MG TABLET PO SCH (11:40)
[2022-03-21] MEDS: GABAPENTIN 100 MG CAPSULE PO SCH (11:41)
[2022-03-21] MEDS: FUROSEMIDE 40 MG TABLET PO SCH (11:41)
[2022-03-21] MEDS: TOPIRAMATE 100 MG TABLET PO SCH (11:41)
[2022-03-21] MEDS: CALCITRIOL 0.25 MCG CAPSULE PO SCH (11:42)
[2022-03-21] MEDS: AMLODIPINE BESYLATE 10 MG TABLET PO SCH (11:42)
[2022-03-21] MEDS: DOXAZOSIN MESYLATE (4 MG) 4 MG TABLET PO SCH (11:43)
[2022-03-21] MEDS: CARVEDILOL 12.5 MG TABLET PO SCH (11:43)
[2022-03-21] MEDS: hydrALAZINE HCL IV 20 MG VIAL IV PRN (11:44)
[2022-03-21] MEDS: CALCIUM ACETATE 667 MG CAP/TAB PO SCH (11:44)
[2022-03-21] MEDS: ASPIRIN 81 MG TAB.CHEW PO SCH (11:44)
[2022-03-21] MEDS: DULOXETINE HCL 20 MG CAPSULE.DR PO SCH (11:44)
[2022-03-21] MEDS: NIFEdipine XL (30MG) 30 MG TAB PO SCH (11:44)
[2022-03-21] MEDS: APIXABAN 5 MG TABLET PO SCH (11:46)
[2022-03-21 11:49] VITALS: BP 138/82
[2022-03-21] MEDS: hydrALAZINE HCL 50 MG TABLET PO SCH (11:49)
[2022-03-21] MEDS: MUPIROCIN OINT 2% 22 GM TUBE NS SCH (11:50)
--- NOTE | 2022-03-21 12:15 | NUR ---
RN NOTE HEMODIALYSIS REMOVED 2L TODAY.
--- NOTE | 2022-03-21 13:40 | NUR ---
RN NOTE PATIENT DISCHARGED AFTER HEMODIALYSIS. AT [facility]. REMOVED SALBADOR IV, CATHETER TIP INTACT, NO S/S OF BLEEDING NOTED. DISCHARGE INSTRUCTIONS GIVEN VERBALLY AND WRITTEN IN DISCHARGE PACKET FOLDER. PT BELONGINGS WENT WITH PATIENT. PATIENT WAS PICKED UP BY FAMILY MEMBER.
== END 2022-03-21 14:26 | disposition home or self-care (01) | DRG 201 ==
LOC: ER 13:28 → TELE1 17:24 → TELE-TD 19:54 → TELE1 03-18 12:55 → MEDSG1 03-19 10:19
PROVIDERS: ADMIT Nurse Practitioner Acute Care; ATTEND Nurse Practitioner Acute Care
PROC: 5A1D70Z Performance of Urinary Filtration, Intermittent, Less than 6 Hours Per Day (ICD-10-PCS; principal; 2022-03-17)
PROC: 30233N1 Transfusion of Nonautologous Red Blood Cells into Peripheral Vein, Percutaneous Approach (ICD-10-PCS; 2022-03-20)
DX: I47.1 Supraventricular tachycardia (principal); D61.818 Other pancytopenia; I13.2 Hypertensive heart and chronic kidney disease with heart failure and with stage 5 chronic kidney disease, or end stage renal disease; E87.20 Acidosis, unspecified; I27.20 Pulmonary hypertension, unspecified; N18.6 End stage renal disease; D63.1 Anemia in chronic kidney disease; E83.39 Other disorders of phosphorus metabolism; Z93.0 Tracheostomy status; I48.20 Chronic atrial fibrillation, unspecified; I16.1 Hypertensive emergency; F11.20 Opioid dependence, uncomplicated; G43.909 Migraine, unspecified, not intractable, without status migrainosus; I50.9 Heart failure, unspecified; K21.9 Gastro-esophageal reflux disease without esophagitis; J98.11 Atelectasis; Z20.822 Contact with and (suspected) exposure to COVID-19; Z86.718 Personal history of other venous thrombosis and embolism; F32.A Depression, unspecified; G40.909 Epilepsy, unspecified, not intractable, without status epilepticus; M81.0 Age-related osteoporosis without current pathological fracture; M89.8X9 Other specified disorders of bone, unspecified site; Z86.711 Personal history of pulmonary embolism; G89.4 Chronic pain syndrome; Z98.891 History of uterine scar from previous surgery; Z88.6 Allergy status to analgesic agent; Z88.1 Allergy status to other antibiotic agents; Z91.041 Radiographic dye allergy status; Z88.5 Allergy status to narcotic agent; Z91.013 Allergy to seafood; Z88.8 Allergy status to other drugs, medicaments and biological substances; Z91.018 Allergy to other foods; Z91.048 Other nonmedicinal substance allergy status; Z79.51 Long term (current) use of inhaled steroids; Z79.899 Other long term (current) drug therapy; J45.909 Unspecified asthma, uncomplicated; Z79.01 Long term (current) use of anticoagulants; Z90.49 Acquired absence of other specified parts of digestive tract; Z91.199 Patient's noncompliance with other medical treatment and regimen due to unspecified reason; Z95.828 Presence of other vascular implants and grafts; Z86.73 Personal history of transient ischemic attack (TIA), and cerebral infarction without residual deficits; Z99.2 Dependence on renal dialysis; E87.5 Hyperkalemia; E03.9 Hypothyroidism, unspecified; E66.9 Obesity, unspecified; Z68.31 Body mass index [BMI] 31.0-31.9, adult; F41.9 Anxiety disorder, unspecified; Z87.2 Personal history of diseases of the skin and subcutaneous tissue; J90 Pleural effusion, not elsewhere classified
CPT/HCPCS: 36415; 71045-TC; 80048-TC; 80076-TC; 82962-TC; 83690-TC; 83735-TC; 84100-TC; 84484-TC; 85025-TC; 86850-TC; 87081-TC; 90935-TC; 93307-TC; 93970-TC; G0378; J0153; J0282; J0360; J1170; J1200; J1815; J2405; J3490; J7030; J7050; J7060; P9016

== ENCOUNTER 2022-03-23 19:49 | Emergency (ER) | payer OTHER ==
[~2022-03-23] VITALS: Ht 165.1 cm; Wt 83.0 kg
[~2022-03-23 19:49] MED LIST changes: +AMLO-213 PO; +ASPI-1169 PO; +CALC0.5C3 PO; +DULO20CA19 PO
--- NOTE | 2022-03-23 22:10 | NUR ---
TO ER BED 9. BIBSELF C/O S/P GLF THIS AFTERNOON C/O BILATERAL KNEE AND R TOE PAIN. VAISHALI KNEE ABRASSION. PT IS ALERT AND ORIENTED. RR EVEN AND NON LABORED. CONNECTED TO MONITOR. AWAITING MD ROOT
--- NOTE | 2022-03-23 23:16 | NUR ---
DRY CELL ASSEMBLY SUPERVISOR AT PT'S BEDSIDE
[2022-03-23 23:58] VITALS: BP 175/90
--- NOTE | 2022-03-23 23:58 | NUR ---
Patient discharged to home in stable condition. Written and verbal after care instructions given. Patient verbalizes understanding of instruction.
== END 2022-03-24 00:20 | disposition home or self-care (01) ==
LOC: ER 19:52
DX: S90.31XA Contusion of right foot, initial encounter (principal); S80.212A Abrasion, left knee, initial encounter; I12.0 Hypertensive chronic kidney disease with stage 5 chronic kidney disease or end stage renal disease; N18.6 End stage renal disease; G43.909 Migraine, unspecified, not intractable, without status migrainosus; K21.9 Gastro-esophageal reflux disease without esophagitis; F32.A Depression, unspecified; Z90.89 Acquired absence of other organs; Z91.013 Allergy to seafood; Z91.018 Allergy to other foods; Z88.8 Allergy status to other drugs, medicaments and biological substances; Z79.899 Other long term (current) drug therapy; W18.30XA Fall on same level, unspecified, initial encounter; Y93.89 Activity, other specified; Y92.89 Other specified places as the place of occurrence of the external cause; Y99.8 Other external cause status
CPT/HCPCS: 73564-TC; 73610-TC; 73630-TC

== ENCOUNTER 2022-03-25 09:31 | Inpatient (IN) | payer OTHER ==
[~2022-03-25] VITALS: Ht 165.1 cm; Wt 90.3 kg
[~2022-03-25 09:31] MED LIST changes: -APIX5TAB PO; -CALC0.258 PO; -CALC667C6 PO; -DOXA8TAB79 PO; -DOXY100T2 PO; -FURO-144 PO; -NIFE30TA91 PO
--- NOTE | 2022-03-25 10:00 | NUR ---
SHORTNESS OF BREATH SINCE THIS MORNING,LAST DIALYSIS TREATMENT WAS LAST WEEK,THURSDAY. PT A&OX4, TRIPODING, PT DID NOT TOLERATE NC. SIMPLE MASK.
[2022-03-25] MEDS ORDERED: hydrALAZINE HCL IV 20 MG VIAL IV ONE (10:30)
[2022-03-25] MEDS ORDERED: hydrALAZINE HCL IV 20 MG VIAL ONE (10:33)
[2022-03-25 10:37] LABS: BASOPHILS % (AUTO) 0.8 % (0.0-2.0); EOSINOPHILS % (AUTO) 6.3 % (0.0-6.0); HEMATOCRIT 25 % (33-45); LYMPHOCYTES # (AUTO) 0.3 K/uL (0.8-4.8); LYMPHOCYTES % (AUTO) 9.2 % (20.0-44.0); MEAN CORPUSCULAR HGB CONC 32 g/dl (31.0-36.0); MEAN CORPUSCULAR VOLUME 97 fL (82-100); MONOCYTES # (AUTO) 0.4 K/uL (0.1-1.30); MONOCYTES % (AUTO) 11.4 % (2.0-12.0); NEUTROPHILS # (AUTO) 2.5 K/uL (1.8-8.9); NEUTROPHILS % (AUTO) 72.3 % (43.0-81.0); PLATELET COUNT (AUTO) 81 K/uL (150-450); RED BLOOD CELL COUNT(AUTO) 2.55 MIL/uL (4.0-5.2); WHITE BLOOD COUNT (AUTO) 3.4 K/uL (4.3-11.0)
--- NOTE | 2022-03-25 10:39 | NUR ---
CALLED NURSING SUP FOR BED
--- NOTE | 2022-03-25 10:42 | NUR ---
COVID TEST COLLECTED AND SENT
[2022-03-25] MEDS ORDERED: SODIUM BICARBONATE SYR 50 MEQ/50 ML DISP.SYRIN IV ONE (11:00)
[2022-03-25] MEDS ORDERED: CALCIUM CHLORIDE 1,000 MG/10 ML DISP.SYRIN IV ONE (11:00)
[2022-03-25 11:10] LABS: ALANINE AMINOTRANSFERASE 18 U/L (12-78); ALBUMIN 3.8 g/dL (3.4-5.0); ALKALINE PHOSPHATASE 101 U/L (46-116); ASPARTATE AMINOTRANSFERASE 28 U/L (15-37); BILIRUBIN,DIRECT 0.1 mg/dL (0.0-0.2); BILIRUBIN,TOTAL 0.5 mg/dL (0.2-1.0); CALCIUM, SERUM 8.6 mg/dL (8.5-10.1); CHLORIDE 97 mmol/L (98-107); GLUCOSE 88 mg/dL (74-106); TOTAL PROTEIN, SERUM 8.1 g/dL (6.4-8.2)
[2022-03-25 11:25] LABS: CARBON DIOXIDE 20 mmol/L (21-32); SODIUM SERUM 133 mmol/L (136-145)
[2022-03-25 11:27] LABS: CREATININE 12.8 mg/dL (0.6-1.3); POTASSIUM 7.3 mmol/L (3.5-5.1); UREA NITROGEN, BLOOD 116 mg/dL (7-18)
[2022-03-25] MEDS ORDERED: ACETAMINOPHEN 325 MG TABLET PO PRN (11:30)
[2022-03-25] MEDS ORDERED: ONDANSETRON HCL/PF - ER 4 MG/2 ML VIAL IM ONE (11:30)
[2022-03-25] MEDS ORDERED: ONDANSETRON HCL/PF 4 MG/2 ML VIAL ONE (11:33)
[2022-03-25] MEDS: ONDANSETRON HCL/PF 4 MG/2 ML VIAL IVP PRN ×2 (11:38→12:45)
--- NOTE | 2022-03-25 11:57 | NUR ---
REPORT GIVEN TO [address] FOR [facility]
--- NOTE | 2022-03-25 12:15 | NUR ---
MEDICAL SERVICE TECHNICIAN NOTE ADMIT 36 YEARS OLD FEMALE TO [facility] UNIT AT ROOM 119-2 ALERT ORIENTED X4 VERBALLY RESPONSIVE ON 2L OXYGEN VIA NASAL CANNULA, O2:96%.ADMISSION DIAGNONSIS SOB AND ACUTE HYPOXIC DUE TO FLUID OVERLOAD,IV SITE IS ON RIGHT UPPER ARM INTACT PATENT AND LEFT UPPER ARM AV SITE NOT INTACT, ON HD --.VITAL SIGN BP 169/111 HR 86 O2:96% ON 2L OXYGEN,SAFETY MEASURE IMPLEMENT BED IN LOW POSITON AND LOCKED,CALL LIGHT WITHIN REACH,PATIENT NEEDS DIALYSIS NOTIFIED CHARGE NURSE CONTINUE TO MONITOR.
[2022-03-25] MEDS ORDERED: ALBUTEROL FS 2.5 MG/3 ML VIAL.NEB NEB PRN (12:30)
[2022-03-25] MEDS: CALCITRIOL 0.25 MCG CAPSULE PO SCH (12:31)
[2022-03-25] MEDS: ASPIRIN 81 MG TAB.CHEW PO SCH (12:36)
[2022-03-25] MEDS: TOPIRAMATE 100 MG TABLET PO SCH ×2 (12:36→16:25)
[2022-03-25] MEDS: DULOXETINE HCL 20 MG CAPSULE.DR PO SCH (12:36)
[2022-03-25] MEDS: AMLODIPINE BESYLATE 10 MG TABLET PO SCH (12:43)
[2022-03-25 12:46] VITALS: BP 169/111
[2022-03-25 12:47] LABS: EOSINOPHILS % (MANUAL) 8 % (0-4); LYMPHOCYTES % (MANUAL) 14 % (16-48); MONOCYTES % (MANUAL) 8 % (0-11.0); NEUTROPHILS % (MANUAL) 70 (42-76)
[2022-03-25] MEDS: GABAPENTIN 100 MG CAPSULE PO SCH ×3 (13:00→16:25)
[2022-03-25] MEDS: hydrALAZINE HCL 25 MG TABLET PO SCH ×2 (13:06→16:17)
[2022-03-25] MEDS: SEVELAMER CARBONATE 800 MG TABLET PO SCH ×2 (13:06→18:02)
--- NOTE | 2022-03-25 13:49 | NUR ---
SPOKE WITH DR. CLAY AWARE PATIENT ADMITTED WITH ELEVATED K ABOVE 7.PER DR. BRADSHAW HE WILL PUT ORDER FOR HD SHYLA.
--- NOTE | 2022-03-25 13:50 | NUR ---
[facility] NOTIFIED.
[2022-03-25] MEDS: MORPHINE SULFATE INJ 2 MG/ML DISP.SYRIN IV PRN ×2 (14:58→21:00)
[2022-03-25] MEDS: diphenhydrAMINE HCL 50 MG/ML VIAL IV PRN (15:15)
--- NOTE | 2022-03-25 15:23 | NUR ---
RN NOTE START DIALYSIS AT THIS TIME.
[2022-03-25 16:00] VITALS: BP 181/122
[2022-03-25] MEDS: CARVEDILOL 12.5 MG TABLET PO SCH (16:22)
--- NOTE | 2022-03-25 17:35 | NUR ---
RN NOTE DIALYSIS DONE DUE TO BLEEDING AV SHUNT FLUID OUT 1.9 L CONTINUE TO MONITOR.
--- NOTE | 2022-03-25 19:13 | NUR ---
RN NOTE PATIENT REMAINS ON ALERT ORIENTED X4 ON 2L OXYGEN VIA NASAL CANNULA,NOT ACUTE DISTRESS NOTED ALL DUE MEDS GIVEN MD ORDERED,KEPT CALL LIGHT WITHIN REACH ALL NEEDS MET ENDOSE NEXT COMING SHIFT FOR CONTINUATION OF CARE.
--- NOTE | 2022-03-25 19:45 | NUR ---
ALERT AND ORIENTED TIMES FOUR. SITTING ON EDGE OF BED WITH O2 AT 2LPM NC. LEFT ARM AV SHUNT WITH PRESSURE DRESSING CLEAN AND DRY. TELE MONITOR ON READING OF SINUS SINUS RHYTHM AND SINUS TACHY 90-110, IV ON RIGHT UPPER ARM PATENT AND WITH NO S/S OF COMPLICATIONS, PATIENT VERBALIZED WANTING TO LEAVE AMA BECAUSE SHE STASTED " I WANT TO GO HOME [place]." V/S 177/100 R 22 HR 103 T. 97.5 02 SAT AT 100 %. NOTED WITH EPISODES OF REMOVING O2. PATIENT TEACHING PROVIDED REGARDING ABNORMAL LABS AND THE NEED TO HAVE HD EVERYDAY, AND THE IMPORTANCE TO USE 02, VERBALIZED UNDERSTANDING, PATIENT VERBALIZED TO BE FEELING ANXIOUS. RESIDENT TALKING TO FRIEND OVER CELL PHONE. RESIDENT SITTING ON EDGE OF BED, BED IS LOCKED, IN LOW POSITION, BED ALARM ON, CALL LIGHT IN REACH. WILL NOTIFY .
[2022-03-25 20:00] VITALS: BP 174/100
[2022-03-25] MEDS ORDERED: LORAZEPAM INJ 2 MG/ML VIAL IVP ONE ×2 (20:00→23:00)
--- NOTE | 2022-03-25 20:00 | NUR ---
HIGINIO MAY SOLID WASTE DIVISION SUPERVISOR HERE NOTIFIED OF RESIDENT CURRENT LABS AND CONDITION AND HER VERBALIZATION OF WANTING TO LEAVE AMA. HIGINIO SOLID WASTE DIVISION SUPERVISOR SPOKE TO PATIENT WITH ORDERS FOR ATIVAN 1 MG IV X 1 AND HYDRALAZINE 10 MG IV Q6HR. PRN SBP>150. PATIENT NOTIFIED, SAFETY PRECAUTIONS MAINTAINED. CALL LIGHT IN REACH.
[2022-03-25] MEDS: hydrALAZINE HCL IV 20 MG VIAL IV PRN (20:14)
[2022-03-25] MEDS: MONTELUKAST SODIUM (10MG) 10 MG TABLET PO SCH (22:15)
[2022-03-25] MEDS: QUETIAPINE FUMARATE 100 MG TABLET PO SCH (22:15)
--- NOTE | 2022-03-25 22:40 | NUR ---
RN NOTE: ORDER ATIVAN 1MG AT 2000 ONE TIME DOSE REFUSED BY PATIENT AT THAT TIME, PATIENT NOW REQUESTING ATIVAN 1 MG COMPLAINS OF FEELING ANXIOUS. PER HOSPITALIST HIGINIO MAY NP, OK TO ADMINISTER ATIVAN 1 MG ONE TIME DOSE NOW WILL CARRY OUT ORDERS.
[2022-03-26] VITALS: BP 138/85
[2022-03-26] MEDS: hydrALAZINE HCL IV 20 MG VIAL IV PRN (04:43)
[2022-03-26 05:17] VITALS: BP 158/106
--- NOTE | 2022-03-26 06:53 | NUR ---
RN CLOSING NOTE: ALERT AND ORIENTED X4. UNLABORED BREATHING WITH 02 2LPM NC SATING AT 99%. LEFT ARM AV SHUNT POSITIVE FOR BRUIT AND THRILL. IV SITE ON RIGHT UPPER ARM PATENT NO S/S OF COMPLICATIONS. ON TELE MONITOR WITH READING OF SINUS RHYTHM 80-90. ON PAIN MANAGEMENT WITH MORPHINE SULFATE ORDERED AND TYLENOL AND EFFECTIVE. NO FURTHER ANXIETY NOTED AT THIS TIME. BP MONITORED AND HYDRALAZINE IV GIVEN X2 FOR SBP >150. SITTING ON EDGE OF BED, HOB ELEVATED, BED IS LOCKED IN LOWEST POSITION, EXIT ALARM ON. BILATERAL HALF SIDE RAILS UP X2. CALL LIGHT IN REACH. NO ACUTE DISTRESS NOTED AT THIS TIME. FALL PRECAUTIONS MAINTAINED. ENCOURAGED TO ELEVATE BLE BUT REFUSED, RISKS VS BENEFITS EXPLAINED VERBALIZED UNDERSTANDING AND STILL REFUSED. OFFERED X3.
[2022-03-26] MEDS: MORPHINE SULFATE INJ 2 MG/ML DISP.SYRIN IV PRN ×3 (07:29→20:12)
--- NOTE | 2022-03-26 07:35 | NUR ---
RN NOTE PT COMPLAINING OF SEVERE PAIN IN HER ABD. MORPHINE GIVEN ORDERED. VSS.
[2022-03-26 08:00] VITALS: BP 161/91
[2022-03-26] MEDS: ASPIRIN 81 MG TAB.CHEW PO SCH (08:22)
[2022-03-26] MEDS: LEVOTHYROXINE SODIUM 50 MCG TABLET PO SCH (08:22)
[2022-03-26] MEDS: hydrALAZINE HCL 25 MG TABLET PO SCH ×5 (08:22→17:38)
[2022-03-26] MEDS: SEVELAMER CARBONATE 800 MG TABLET PO SCH ×3 (08:23→17:38)
[2022-03-26] MEDS: CALCITRIOL 0.25 MCG CAPSULE PO SCH (08:23)
[2022-03-26] MEDS: GABAPENTIN 100 MG CAPSULE PO SCH ×3 (08:23→17:38)
[2022-03-26] MEDS: DULOXETINE HCL 20 MG CAPSULE.DR PO SCH (08:23)
[2022-03-26] MEDS: CARVEDILOL 12.5 MG TABLET PO SCH ×2 (08:23→17:37)
[2022-03-26] MEDS: AMLODIPINE BESYLATE 10 MG TABLET PO SCH (08:23)
[2022-03-26] MEDS: TOPIRAMATE 100 MG TABLET PO SCH ×2 (08:23→17:37)
[2022-03-26] MEDS: diphenhydrAMINE HCL 50 MG/ML VIAL IV PRN (08:40)
[2022-03-26 09:27] LABS: BASOPHILS % (AUTO) 0.4 % (0.0-2.0); EOSINOPHILS % (AUTO) 8.3 % (0.0-6.0); HEMATOCRIT 24 % (33-45); HEMOGLOBIN 7.6 g/dL (11.5-14.8); LYMPHOCYTES # (AUTO) 0.3 K/uL (0.8-4.8); LYMPHOCYTES % (AUTO) 9.5 % (20.0-44.0); MEAN CORPUSCULAR HGB CONC 32 g/dl (31.0-36.0); MEAN CORPUSCULAR VOLUME 97 fL (82-100); MONOCYTES # (AUTO) 0.4 K/uL (0.1-1.30); MONOCYTES % (AUTO) 13.8 % (2.0-12.0); PLATELET COUNT (AUTO) 81 K/uL (150-450); RED BLOOD CELL COUNT(AUTO) 2.44 MIL/uL (4.0-5.2)
[2022-03-26 09:31] LABS: CALCIUM, SERUM 8.7 mg/dL (8.5-10.1); POTASSIUM 5.2 mmol/L (3.5-5.1)
--- NOTE | 2022-03-26 09:43 | NUR ---
RN NOTE PT WITH ONGOING HD, BP LOWERED TO 132/92. WILL CONTINUE TO MONITOR. HYDRALAZINE HELD.
[2022-03-26 09:50] LABS: CREATININE 10.6 mg/dL (0.6-1.3)
[2022-03-26] MEDS: IPRATROPIUM NEB FS 0.5 MG/2.5 ML AMPUL.NEB NEB SCH ×4 (11:25→23:42)
[2022-03-26 12:00] VITALS: BP 115/78
--- NOTE | 2022-03-26 12:05 | NUR ---
RN NOTE HD COMPLETED, PT TOLERATED WELL. 2L REMOVED, BP STABLE.
[2022-03-26 13:31] LABS: BAND % (MANUAL) 1 % (0.0-5.0); EOSINOPHILS % (MANUAL) 8 % (0-4); LYMPHOCYTES % (MANUAL) 13 % (16-48); METAMYELOCYTES % 1 % (0-0); MONOCYTES % (MANUAL) 9 % (0-11.0); NEUTROPHILS % (MANUAL) 68 (42-76)
--- NOTE | 2022-03-26 13:45 | NUR ---
RN NOTE PT COMPLAINING OF SEVERE ABD PAIN. MORPHINE GIVEN ORDERED. VSS.
--- NOTE | 2022-03-26 14:39 | NUR ---
RN NOTE PT STABLE ON RA.
[2022-03-26 15:10] LABS: ABG BASE EXCESS 4.1 mmol/L; ABG OXYGEN SATURATION 95.3 % (92.0-98.5); ABG PCO2 41.2 mmHg (35.0-45.0); ABG PH 7.455 (7.350-7.450); ABG PO2 78.7 mmHg (75.0-100.0); AaDO2 21.7 mmHg; COHb 0.2 % (0.5-1.5); MetHb 0.1 % (0.0-1.5); SITE, ABG Right Brachial; VENT MODE, BG room air
[2022-03-26 16:00] VITALS: BP 135/92
[2022-03-26] MEDS ORDERED: LORAZEPAM 1 MG TABLET PO PRN (17:30)
--- NOTE | 2022-03-26 18:28 | NUR ---
RN NOTE PT REMAINS IN BED, AWAKE, RESTING. PT ON RA WITH NO SIGNS OF LABORED BREATHING, SAT STABLE. RIGHT UA 20G IV AND LEFT UA AV SHUNT IN PLACE. BED LOCKED AND IN LOWEST POSITION, CALL LIGHT WITHIN REACH, 2 SIDE RAILS UP.
--- NOTE | 2022-03-26 19:39 | NUR ---
LOAN TELLER OPENING NOTES RECEIVED PT AWAKE SITTING AT THE BED, A/O X4. ON RA TOLERATING WELL, WITH LEFT ARM AV SHUNT WITH PRESSURE DRESSING CLEAN AND DRY. TELE MONITOR ON READING OF SINUS RHYTHM, IV ON RIGHT UPPER ARM PATENT AND WITH NO S/S OF COMPLICATIONS, PT AMBULATES INDEPENDENTLY TO THE BATHROOM, SAFETY MEASURES IN PLACED, BED IS LOCKED AND IN LOW POSITION, CALL LIGHT WITHIN REACH AND INSTRUCTED PT TO CALL FOR ASSISTANCE. WILL CONTINUE TO MONITOR THROUGHOUT THE SHIFT.
[2022-03-26 20:00] VITALS: BP 158/92
--- NOTE | 2022-03-26 20:12 | NUR ---
RN NOTE PT COMPLAINTS OF PAIN ON THE R LOWER ABDOMEN, RATE 8/10 ON PAIN SCALE, PAINS MEDS MORPHINE GIVEN PRN ORDER. COMFORT MEASURES PROVIDED. WILL CONT TO MONITOR.
[2022-03-26] MEDS: MONTELUKAST SODIUM (10MG) 10 MG TABLET PO SCH (21:03)
[2022-03-26] MEDS: QUETIAPINE FUMARATE 100 MG TABLET PO SCH (21:03)
--- NOTE | 2022-03-26 21:10 | NUR ---
RN NOTE SCHEDULED SEROQUEL MEDICATION TAKEN OUT FROM THE PYXIS. WHEN SCANNED, APPEARS UNDER DOSE, TOOK OUT ANOTHER TABLET TO COMPLETE 200 MG.
[2022-03-27] VITALS: BP 113/48
[2022-03-27] MEDS: IPRATROPIUM NEB FS 0.5 MG/2.5 ML AMPUL.NEB NEB SCH ×6 (03:14→23:30)
[2022-03-27 04:00] VITALS: BP 120/50
--- NOTE | 2022-03-27 06:44 | NUR ---
MAIL HANDLER ASSISTANT CLOSING NOTES PT SITTING ON THE BED, SLEEPING BUT EASILY AROUSABLE TO TOUCH AND VOICE, A/O X4. ON RA TOLERATING WELL, WITH LEFT ARM AV SHUNT WITH PRESSURE DRESSING CLEAN AND DRY. TELE MONITOR ON READING OF SINUS RHYTHM, IV ACCESS ON THE RIGHT UPPER ARM PATENT AND WITH NO S/S OF COMPLICATIONS, PT AMBULATES INDEPENDENTLY TO THE BATHROOM, KEPT DRY AND CLEAN, ALL DUE MEDS GIVEN, SAFETY MEASURES IN PLACED, BED IS LOCKED AND IN LOW POSITION, CALL LIGHT WITHIN REACH AND INSTRUCTED PT TO CALL FOR ASSISTANCE. WILL ENDORSE TO AM SHIFT NURSE FOR CONTINUITY OF CARE.
--- NOTE | 2022-03-27 07:10 | NUR ---
ALUMNI RELATIONS MANAGER OPENING NOTES RECEIVED PT AWAKE SITTING AT THE BED, A/O X4. ON RA TOLERATING WELL AT 96%. PATIENT HAS LEFT ARM AV SHUNT WITH DRESSING CLEAN AND DRY. EXTERNAL TELE MONITOR ON SINUS RHYTHM, IV ON RIGHT UPPER ARM PATENT AND WITH NO S/S OF COMPLICATIONS.ALL SAFETY MEASURES IN PLACE, BED IS LOCKED AND IN LOW POSITION, SIDE RAILS UP X2. CALL LIGHT WITHIN REACH.BEDSIDE TABLE NEXT TO PATIENT. BED ALARM ON.
[2022-03-27 08:00] VITALS: BP 153/104
[2022-03-27] MEDS: MORPHINE SULFATE INJ 2 MG/ML DISP.SYRIN IV PRN ×2 (08:06→16:46)
[2022-03-27] MEDS: LEVOTHYROXINE SODIUM 50 MCG TABLET PO SCH (08:51)
[2022-03-27] MEDS: SEVELAMER CARBONATE 800 MG TABLET PO SCH ×3 (08:51→17:05)
[2022-03-27] MEDS: DULOXETINE HCL 20 MG CAPSULE.DR PO SCH (08:51)
[2022-03-27] MEDS: CALCITRIOL 0.25 MCG CAPSULE PO SCH (08:52)
[2022-03-27] MEDS: GABAPENTIN 100 MG CAPSULE PO SCH ×3 (08:52→16:44)
[2022-03-27] MEDS: ASPIRIN 81 MG TAB.CHEW PO SCH (08:52)
[2022-03-27] MEDS: diphenhydrAMINE HCL 50 MG/ML VIAL IV PRN (08:58)
[2022-03-27] MEDS: hydrALAZINE HCL 25 MG TABLET PO SCH ×4 (09:00→16:45)
[2022-03-27] MEDS: CARVEDILOL 12.5 MG TABLET PO SCH ×2 (09:00→16:44)
[2022-03-27] MEDS: AMLODIPINE BESYLATE 10 MG TABLET PO SCH (09:00)
--- NOTE | 2022-03-27 09:32 | NUR ---
patient getting dialysis
[2022-03-27 10:03] LABS: CALCIUM, SERUM 8.2 mg/dL (8.5-10.1); CREATININE 6.9 mg/dL (0.6-1.3); POTASSIUM 4.4 mmol/L (3.5-5.1)
[2022-03-27] MEDS: TOPIRAMATE 100 MG TABLET PO SCH ×2 (10:45→16:44)
[2022-03-27 12:00] VITALS: BP 165/97
--- NOTE | 2022-03-27 13:00 | NUR ---
RN NOTE PATIENT COMPLETED DIALYSIS.DIALYSIS NURSE REMOVED 2 L
[2022-03-27 16:00] VITALS: BP 150/87
--- NOTE | 2022-03-27 19:25 | NUR ---
PATHOLOGY ASSISTANT CLOSING NOTE PT AWAKE SITTING AT THE BED, A/O X4. ON RA TOLERATING WELL AT 98%. PATIENT HAS LEFT ARM AV SHUNT WITH DRESSING CLEAN AND DRY. EXTERNAL TELE MONITOR ON SINUS RHYTHM, IV ON RIGHT UPPER ARM PATENT AND WITH NO S/S OF COMPLICATIONS. ALL NEEDS MET. PATIENT HAS SOME BLEEDING FROM NOSE. BLEEDING STOPPED TEMPORARY.ENDORSED TO LARD BLEACHER RN. ALL SAFETY MEASURES IN PLACE, BED IS LOCKED AND IN LOWEST POSITION, SIDE RAILS UP X2. CALL LIGHT WITHIN REACH.BEDSIDE TABLE NEXT TO PATIENT. BED ALARM ON.EDUCATED PATIENT TO RAISE UP ONE SIDE RAIL DUE TO PATIENT SITTING AT EDGE OF BED. EDUCATED PATIENT ABOUT FALL PREVENTION AND SAFETY. PATIENT VERBALIZED UNDERSTANDING.
--- NOTE | 2022-03-27 19:25 | NUR ---
ONLINE USER EXPERIENCE STRATEGIST OPENING NOTES RECEIVED PT AWAKE SITTING AT THE BED, A/O X4. ON RA TOLERATING WELL AT 96%. PATIENT HAS LEFT ARM AV SHUNT WITH DRESSING CLEAN AND DRY. EXTERNAL TELE MONITOR ON SINUS RHYTHM, IV ON RIGHT UPPER ARM PATENT AND WITH NO S/S OF COMPLICATIONS.ALL SAFETY MEASURES IN PLACE, BED IS LOCKED AND IN LOW POSITION, SIDE RAILS UP X2. CALL LIGHT WITHIN REACH.BEDSIDE TABLE NEXT TO PATIENT. BED ALARM ON.
--- NOTE | 2022-03-27 19:30 | NUR ---
PRESS ASSISTANT AND FEEDER OPENING NOTE RECEIVED PT AWAKE SITTING AT THE BED, A/O X4. ON RA TOLERATING WELL, WITH LEFT ARM AV SHUNT WITH PRESSURE DRESSING CLEAN AND DRY. TELE MONITOR NOT ON PATIENT IS REFUSING BOX., IV ON RIGHT UPPER ARM PATENT AND WITH NO S/S OF COMPLICATIONS, PT AMBULATES INDEPENDENTLY TO THE BATHROOM, PATIENT ABLE TO MAKE NEEDS KNOWN. SAFETY MEASURES IN PLACED, BED IS LOCKED AND IN LOW POSITION, CALL LIGHT WITHIN REACH AND INSTRUCTED PT TO CALL FOR ASSISTANCE. WILL CONTINUE TO MONITOR THROUGHOUT THE SHIFT.
[2022-03-27 20:00] VITALS: BP 145/83
[2022-03-27] MEDS ORDERED: diphenhydrAMINE HCL 50 MG/ML VIAL IV ONE (21:00)
[2022-03-27] MEDS: MONTELUKAST SODIUM (10MG) 10 MG TABLET PO SCH (21:06)
[2022-03-27] MEDS: QUETIAPINE FUMARATE 100 MG TABLET PO SCH (21:06)
--- NOTE | 2022-03-27 23:52 | NUR ---
RN NOTE PT REFUSED BREATHING TREATMENT FROM RT
--- NOTE | 2022-03-27 23:55 | NUR ---
RT pt refused breathing tx. no sob, no resp distress noted. notified yael mohan
[2022-03-28] VITALS: BP 136/77
[2022-03-28] MEDS: MORPHINE SULFATE INJ 2 MG/ML DISP.SYRIN IV PRN ×2 (02:38→09:07)
[2022-03-28 04:00] VITALS: BP 128/89
[2022-03-28] MEDS: IPRATROPIUM NEB FS 0.5 MG/2.5 ML AMPUL.NEB NEB SCH ×4 (04:04→16:07)
--- NOTE | 2022-03-28 04:44 | NUR ---
RN NOTE DIALYSIS AT BEDSIDE
[2022-03-28] MEDS: diphenhydrAMINE HCL 50 MG/ML VIAL IV PRN (05:20)
[2022-03-28 05:58] LABS: BASOPHILS % (AUTO) 0.5 % (0.0-2.0); EOSINOPHILS % (AUTO) 7.1 % (0.0-6.0); HEMATOCRIT 22 % (33-45); HEMOGLOBIN 7.3 g/dL (11.5-14.8); LYMPHOCYTES # (AUTO) 0.4 K/uL (0.8-4.8); LYMPHOCYTES % (AUTO) 10.7 % (20.0-44.0); MEAN CORPUSCULAR HGB CONC 33 g/dl (31.0-36.0); MEAN CORPUSCULAR VOLUME 95 fL (82-100); MONOCYTES # (AUTO) 0.6 K/uL (0.1-1.30); MONOCYTES % (AUTO) 17.6 % (2.0-12.0); NEUTROPHILS # (AUTO) 2.4 K/uL (1.8-8.9); NEUTROPHILS % (AUTO) 64.1 % (43.0-81.0); PLATELET COUNT (AUTO) 96 K/uL (150-450); RED BLOOD CELL COUNT(AUTO) 2.29 MIL/uL (4.0-5.2); WHITE BLOOD COUNT (AUTO) 3.7 K/uL (4.3-11.0)
--- NOTE | 2022-03-28 06:51 | NUR ---
TAPE TRANSFERRER CLOSING NOTE PT AWAKE SITTING AT THE BED, A/O X4. ON RA TOLERATING WELL, WITH LEFT ARM AV SHUNT CURRENTLY RECEIVING DIALYSIS. TELE MONITOR NOT ON PATIENT IS REFUSING BOX., IV ON SALBADOR, PATENT AND INTACT, WITH NO S/S OF COMPLICATIONS, PT AMBULATES INDEPENDENTLY TO THE BATHROOM, PATIENT ABLE TO MAKE NEEDS KNOWN.. ALL SAFETY MEASURES IN PLACE. BED IN LOWEST POSITION AND LOCKED, SIDE RAILS UP X3. PLACE CALL LIGHT WITHIN REACH. WILL ENDORSE TO MORNING SHIFT
[2022-03-28] MEDS: hydrALAZINE HCL IV 20 MG VIAL IV PRN (07:07)
--- NOTE | 2022-03-28 07:39 | NUR ---
RN NOTE ADMINSTERED HYDRAZALINE IV DUE TO HIGH BP PER DIALYSIS NURSE
--- NOTE | 2022-03-28 07:39 | NUR ---
EXECUTIVE COACH OPENING NOTES RECEIVED PT AWAKE SITTING AT THE BED.PT GETTING DIALYSIS. A/O X4. ON RA TOLERATING WELL AT 96%. PATIENT HAS LEFT ARM AV SHUNT WITH DRESSING CLEAN AND DRY. EXTERNAL TELE MONITOR ON SINUS RHYTHM, IV ON RIGHT UPPER ARM PATENT AND WITH NO S/S OF COMPLICATIONS.ALL SAFETY MEASURES IN PLACE, BED IS LOCKED AND IN LOW POSITION, SIDE RAILS UP X2. CALL LIGHT WITHIN REACH.BEDSIDE TABLE NEXT TO PATIENT. BED ALARM ON.
[2022-03-28 07:53] LABS: CALCIUM, SERUM 8.5 mg/dL (8.5-10.1); CREATININE 6.6 mg/dL (0.6-1.3); MAGNESIUM 1.9 mg/dL (1.8-2.4); PHOSPHORUS 5.6 mg/dL (2.5-4.9); POTASSIUM 4.8 mmol/L (3.5-5.1)
[2022-03-28 08:00] VITALS: BP 135/85
[2022-03-28] MEDS: LEVOTHYROXINE SODIUM 50 MCG TABLET PO SCH (08:35)
[2022-03-28] MEDS: SEVELAMER CARBONATE 800 MG TABLET PO SCH ×2 (08:35→12:50)
[2022-03-28] MEDS: TOPIRAMATE 100 MG TABLET PO SCH (08:36)
[2022-03-28] MEDS: CALCITRIOL 0.25 MCG CAPSULE PO SCH (08:36)
[2022-03-28] MEDS: ASPIRIN 81 MG TAB.CHEW PO SCH (08:36)
[2022-03-28] MEDS: DULOXETINE HCL 20 MG CAPSULE.DR PO SCH (08:36)
[2022-03-28] MEDS: GABAPENTIN 100 MG CAPSULE PO SCH ×2 (08:36→12:50)
--- NOTE | 2022-03-28 08:43 | NUR ---
rn note dialysis nurse removed 2 L.
[2022-03-28] MEDS ORDERED: APIXABAN 2.5 MG TABLET PO SCH (09:00)
[2022-03-28] MEDS: hydrALAZINE HCL 25 MG TABLET PO SCH ×2 (09:05→12:51)
[2022-03-28] MEDS: CARVEDILOL 12.5 MG TABLET PO SCH (09:06)
[2022-03-28] MEDS: AMLODIPINE BESYLATE 10 MG TABLET PO SCH (09:06)
--- NOTE | 2022-03-28 09:20 | NUR ---
rn note patient complaining of leg and abdominal pain. pain scaled 8. administered morphine. helped relieve pain
--- NOTE | 2022-03-28 09:22 | NUR ---
rn note ordered eliquis to be given. notified him that patients platelets are 96. and if okay to hold? md said ok to give, also notified him that patient has nose bleeds throughout the say. said that's ok.
[2022-03-28 09:36] LABS: BAND % (MANUAL) 5 % (0.0-5.0); EOSINOPHILS % (MANUAL) 6 % (0-4); LYMPHOCYTES % (MANUAL) 6 % (16-48); MONOCYTES % (MANUAL) 17 % (0-11.0); NEUTROPHILS % (MANUAL) 66 (42-76)
[2022-03-28] MEDS ORDERED: APIX2.5T PO (09:59)
[2022-03-28] MEDS ORDERED: HYDR100T27 PO (10:02)
[2022-03-28] MEDS ORDERED: hydrALAZINE HCL IV 20 MG VIAL IV PRN (10:23)
[2022-03-28 12:00] VITALS: BP 152/71
[2022-03-28 12:51] VITALS: BP 152/71
--- NOTE | 2022-03-28 13:30 | NUR ---
notified nursing workers compensation claims supervisor that patient wants a ride to her home ordered. spoke with family preservation caseworker and she asked to contact nursing workers compensation claims supervisor regarding taxi voucher
--- NOTE | 2022-03-28 13:32 | NUR ---
rn note nursing business supervisor called back and no taxi vouchers are available only tap card. patient is ambulatory and agreed with tap card
--- NOTE | 2022-03-28 15:18 | NUR ---
rn note patient discharged. removed iv. patient belongings returned. provided patient with discharge instructions. patient stable condition. patient verbalized understanding. gave tap card to patient. taken out by wheelchair to lobby
== END 2022-03-28 15:18 | disposition home or self-care (01) | DRG 425 ==
LOC: ER 09:35 → TELE1 12:06 → TELE-TD 12:47 → TELE1 03-26 15:42 → MEDSG1 03-28 10:59
PROVIDERS: ADMIT Nurse Practitioner Acute Care; ATTEND Nurse Practitioner Acute Care
PROC: 5A1D70Z Performance of Urinary Filtration, Intermittent, Less than 6 Hours Per Day (ICD-10-PCS; principal; 2022-03-25)
DX: E87.70 Fluid overload, unspecified (principal); J96.21 Acute and chronic respiratory failure with hypoxia; D61.818 Other pancytopenia; I13.2 Hypertensive heart and chronic kidney disease with heart failure and with stage 5 chronic kidney disease, or end stage renal disease; E87.20 Acidosis, unspecified; I12.0 Hypertensive chronic kidney disease with stage 5 chronic kidney disease or end stage renal disease; D63.1 Anemia in chronic kidney disease; I16.1 Hypertensive emergency; I27.20 Pulmonary hypertension, unspecified; N18.6 End stage renal disease; J90 Pleural effusion, not elsewhere classified; E11.22 Type 2 diabetes mellitus with diabetic chronic kidney disease; Z79.01 Long term (current) use of anticoagulants; Z20.822 Contact with and (suspected) exposure to COVID-19; Z91.199 Patient's noncompliance with other medical treatment and regimen due to unspecified reason; Z86.73 Personal history of transient ischemic attack (TIA), and cerebral infarction without residual deficits; Z91.15 Patient's noncompliance with renal dialysis; G40.909 Epilepsy, unspecified, not intractable, without status epilepticus; G43.909 Migraine, unspecified, not intractable, without status migrainosus; J44.9 Chronic obstructive pulmonary disease, unspecified; K21.9 Gastro-esophageal reflux disease without esophagitis; Z99.2 Dependence on renal dialysis; Z86.718 Personal history of other venous thrombosis and embolism; Z86.711 Personal history of pulmonary embolism; Z95.828 Presence of other vascular implants and grafts; Z90.49 Acquired absence of other specified parts of digestive tract; Z79.82 Long term (current) use of aspirin; Z79.51 Long term (current) use of inhaled steroids; Z79.899 Other long term (current) drug therapy; M81.0 Age-related osteoporosis without current pathological fracture; M89.8X9 Other specified disorders of bone, unspecified site; R07.89 Other chest pain; G89.4 Chronic pain syndrome; I50.9 Heart failure, unspecified; E03.9 Hypothyroidism, unspecified; E66.9 Obesity, unspecified; Z98.891 History of uterine scar from previous surgery; Z98.890 Other specified postprocedural states; E87.5 Hyperkalemia; I48.20 Chronic atrial fibrillation, unspecified; J45.909 Unspecified asthma, uncomplicated; Z93.1 Gastrostomy status; Z86.79 Personal history of other diseases of the circulatory system; Z91.14 Patient's other noncompliance with medication regimen; M89.9 Disorder of bone, unspecified; G89.18 Other acute postprocedural pain; R07.9 Chest pain, unspecified; J98.11 Atelectasis
CPT/HCPCS: 36415; 36600; 71045-TC; 74018; 80048-TC; 80076-TC; 83735-TC; 83880; 84100-TC; 84484-TC; 85025-TC; 87081-TC; 90935-TC; 94799-TC; C9803; G0378; J0360; J1200; J2060; J2270; J2405; J3490; J7030

== ENCOUNTER 2022-04-24 15:45 | Inpatient (IN) | payer OTHER ==
[~2022-04-24] VITALS: Ht 170.2 cm; Wt 92.5 kg
[~2022-04-24 15:45] MED LIST changes: +APIX2.5T PO
[2022-04-24] MEDS ORDERED: IPRATROPIUM NEB FS 0.5 MG/2.5 ML AMPUL.NEB ONE (16:01)
[2022-04-24] MEDS ORDERED: ALBUTEROL FS 2.5 MG/3 ML VIAL.NEB ONE (16:01)
[2022-04-24] MEDS ORDERED: NITROGLYCERIN 0.4 MG/TAB BOTTLE ONE (16:21)
[2022-04-24] MEDS ORDERED: NITROGLYCERIN 0.4 MG/TAB BOTTLE SL ONE (16:30)
[2022-04-24 17:16] LABS: BASOPHILS % (AUTO) 0.7 % (0.0-2.0); LYMPHOCYTES # (AUTO) 0.2 K/uL (0.8-4.8); LYMPHOCYTES % (AUTO) 4.4 % (20.0-44.0); MEAN CORPUSCULAR HGB CONC 32 g/dl (31.0-36.0); MEAN CORPUSCULAR VOLUME 99 fL (82-100); MONOCYTES # (AUTO) 0.5 K/uL (0.1-1.30); NEUTROPHILS # (AUTO) 4.5 K/uL (1.8-8.9); NEUTROPHILS % (AUTO) 80.9 % (43.0-81.0); PLATELET COUNT (AUTO) 102 K/uL (150-450); WHITE BLOOD COUNT (AUTO) 5.5 K/uL (4.3-11.0)
[2022-04-24 17:21] LABS: RED BLOOD CELL COUNT(AUTO) 1.99 MIL/uL (4.0-5.2)
[2022-04-24 17:23] LABS: HEMATOCRIT 20 % (33-45); HEMOGLOBIN 6.4 g/dL (11.5-14.8)
[2022-04-24 17:33] LABS: ALANINE AMINOTRANSFERASE 13 U/L (12-78); ALBUMIN 4.1 g/dL (3.4-5.0); ALKALINE PHOSPHATASE 110 U/L (46-116); ASPARTATE AMINOTRANSFERASE 14 U/L (15-37); BILIRUBIN,DIRECT 0.2 mg/dL (0.0-0.2); BILIRUBIN,TOTAL 0.7 mg/dL (0.2-1.0); CALCIUM, SERUM 8.9 mg/dL (8.5-10.1); CARBON DIOXIDE 22 mmol/L (21-32); CHLORIDE 101 mmol/L (98-107); GLUCOSE 102 mg/dL (74-106); POTASSIUM 5.9 mmol/L (3.5-5.1); SODIUM SERUM 140 mmol/L (136-145); TOTAL PROTEIN, SERUM 8.4 g/dL (6.4-8.2)
[2022-04-24 17:35] LABS: CREATININE 16.5 mg/dL (0.6-1.3); UREA NITROGEN, BLOOD 132 mg/dL (7-18)
--- NOTE | 2022-04-24 17:35 | NUR ---
RT Pt placed on BIPAP at arrival. Order and settings provided by MD Eric. Pt found off BIPAP during check @1735. Pt complaining of SOB but refuses to be placed back on BIPAP. RN aware. BIPAP on standby bed side. Pt currently on NC 2 LPM. Will continue to monitor.
[2022-04-24] MEDS ORDERED: SODIUM POLYSTYRENE SULFONATE 15 G/60 ML BOTTLE ONE ×2 (17:58→17:59)
[2022-04-24] MEDS ORDERED: SODIUM POLYSTYRENE SULFONATE 15 G/60 ML BOTTLE PO ONE (18:00)
--- NOTE | 2022-04-24 18:15 | NUR ---
MOVE SHEET SUBMITTED.
[2022-04-24] MEDS ORDERED: CARVEDILOL 12.5 MG TABLET ONE (18:27)
[2022-04-24] MEDS: CARVEDILOL 12.5 MG TABLET PO SCH (18:29)
[2022-04-24] MEDS ORDERED: ONDANSETRON HCL/PF 4 MG/2 ML VIAL IVP PRN (18:30)
[2022-04-24] MEDS ORDERED: ALBUTEROL FS 2.5 MG/3 ML VIAL.NEB NEB PRN (18:30)
[2022-04-24] MEDS ORDERED: ACETAMINOPHEN 325 MG TABLET PO PRN (18:30)
[2022-04-24] MEDS ORDERED: MAG HYDROX/AL HYDROX/SIMETH 30 ML UDC PO PRN (18:30)
[2022-04-24] MEDS ORDERED: MAGNESIUM HYDROXIDE 30 ML UDC PO PRN (18:30)
[2022-04-24] MEDS ORDERED: Z GUARD REMEDY 4 OZ OINT TP PRN (18:30)
--- NOTE | 2022-04-24 19:47 | NUR ---
"Been Feeling Weak x1wk. Cough/SOB started this am" hx of dialysis missed one session last session on thursday. pt awake and alert x4 on nasal cannula denying sob at thisa time.
[2022-04-24] MEDS ORDERED: MORPHINE SULFATE INJ 2 MG/ML DISP.SYRIN ONE (20:07)
[2022-04-24] MEDS: MORPHINE SULFATE INJ 2 MG/ML DISP.SYRIN IV PRN (20:10)
[2022-04-24 21:52] LABS: EOSINOPHILS % (MANUAL) 4 % (0-4); LYMPHOCYTES % (MANUAL) 8 % (16-48); MONOCYTES % (MANUAL) 5 % (0-11.0); NEUTROPHILS % (MANUAL) 83 (42-76)
[2022-04-24 22:00] VITALS: BP 153/90
[2022-04-24] MEDS ORDERED: MONTELUKAST SODIUM (10MG) 10 MG TABLET PO SCH (22:00)
[2022-04-24] MEDS ORDERED: QUETIAPINE FUMARATE 25 MG TABLET PO SCH (22:00)
--- NOTE | 2022-04-24 22:00 | NUR ---
BLOOD CONSENT TISGNED BY PT AND PLACED IN CHART
--- NOTE | 2022-04-24 22:38 | NUR ---
RN NOTES RECEIVED ER ADMISSION REPORT FROM YENIFER SILVA. ALL PERTINENT ADMISSION INFO REGARDING PT NOTED. WILL WAIT FOR PT TO BE TRANSFERRED TO UNIT AND ADDRESS NEEDS ACCORDINGLY. PARI MUTUEL CLERK MADE AWARE.
--- NOTE | 2022-04-24 22:38 | NUR ---
REPORT GIVEN TO VERA
--- NOTE | 2022-04-24 22:50 | NUR ---
RN NOTES RECEIVED PT FROM ER VIA FELICITAS ACCOMPANIED BY 2 ER STAFF AND TRANSFERRED TO BED INDEPENDENTLY. PT IS A/OX4;2L OF 02 VIA CO WITH WIT NOTED DYSPNEA UPON EXERTION. COMPREHENSIVE PHYSICAL ASSESSMENT AND PATIENT CARE DONE. CALL LIGHT WITHIN REACH, SAFETY MEASURES, WILL CONTINUE MONITOR AND ASSESS THROUGHOUT THE SHIFT. WILL CARRY OUT MD ORDERS ACCORDINGLY. FOOD SERVICE SPECIALIST MADE AWARE.
--- NOTE | 2022-04-24 22:52 | NUR ---
PT TRANSPORTED TO ROOM 118 ON CARDIAC PER ACLS
--- NOTE | 2022-04-24 23:00 | NUR ---
RN NOTES UNABLE TO SCAN BENADRYL, ADMIN SCHED DONE IN EMAR. MEDICATION GIVEN PRIOR TO HD. LAB DIRECTOR MADE AWARE.
[2022-04-24] MEDS: diphenhydrAMINE HCL 50 MG/ML VIAL IV PRN (23:45)
[2022-04-25] VITALS (11 sets, daily range): BP systolic 148–194; BP diastolic 79–122
--- NOTE | 2022-04-25 00:35 | NUR ---
YENIFER NOTES 1 U PRBC BEING GIVEN WHILE PT GETTING HD, INITIAL VITAL SIGNS TAKEN AND NOTED TO BE WNL. WILL CONTINUE TO MONITOR AND ASSESS FOR ANY BLOOD TRANSFUSION REACTION AND ADDRESS ACCORDINGLY. EFRA STRE[address] WELL AWARE. Addendum: 04/25/22 at 0221 by ORALIA MACK RN @0200 ENDED BLOOD TRANSFUSION GIVEN WITH HD VITAL SIGNS REMAINED OK, NO BLOOD TRANSFUSION REACTION NOTED. WILL CONTINUE TO MONITOR AND ASSESS FOR ANY BLOOD TRANSFUSION REACTION POST PROCEDURE. EFRA STRE[address] MADE AWARE.
[2022-04-25] MEDS: MORPHINE SULFATE INJ 2 MG/ML DISP.SYRIN IV PRN ×3 (03:08→14:59)
--- NOTE | 2022-04-25 04:00 | NUR ---
RN NOTES PATIENT REMAINED TO BE IN NO SIGNS OF RESPIRATORY DISTRESS; BUT WITH MILD SOB AND DYSPNEA UPON EXERTION; O2 SUPPORT MAINTAINED, SAFE ENVIRONMENT MAINTAINED FOR PT. AM PATIENT CARE ASSISTANCE RENDERED. WILL CONTINUE TO MONITOR AND REASSESS FOR ANY CHANGES THROUGHOUT THE SHIFT.
--- NOTE | 2022-04-25 05:15 | NUR ---
RN NOTES PT COMPLAINING OF HARD OF BREATHING AND PAIN, PAIN MEDICATION GIVEN HOURS AGO NOT YET DUE. COORDINATED WITH RT FOR PRN BREATHING TX. STOCK SELECTOR MADE AWARE.
--- NOTE | 2022-04-25 05:39 | NUR ---
RT RT called to give PRN tx. Pt recvd on 3 lpm NC sitting up in bed with audible wheezes. neb tx given and soo well with no adverse reaction. No SOB or respiratory distress noted at this time.
--- NOTE | 2022-04-25 06:41 | NUR ---
RN CLOSING NOTE: PATIENT REMAINS IN ROOM IN NO SIGNS OF RESPIRATORY DISTRESS, PATIENT NOW ON 3L OF 02 VIA NC ;TOLERATING WELL SATURATING @ >95% SP02. SAFETY MEASURES IMPLEMENTED, BED IN LOWEST POSITION, LOCKED, SIDE RAILS UP, CALL LIGHT WITHIN REACH. ALL NEEDS AND ORDERS ADDRESSED DURING THE SHIFT. IV ACCESS MAINTAINED INTACT, SECURED AND FLUSHING WELL. ALL DUE MEDS GIVEN ORDERED & SCHEDULED ; PATIENT TOLERATED WELL. PATIENT KEPT CLEAN AND COMFORTABLE WITHIN THE SHIFT. PATIENT ENDORSED TO INCOMING SHIFT RN WITH STABLE VITAL SIGN AND FOR CONTINUITY OF CARE. Addendum: 04/25/22 at 0641 by ORALIA MACK RN HD DONE LAST NIGHT OUTPUT OF 2L.
[2022-04-25] MEDS ORDERED: PANTOPRAZOLE 40 MG TABLET.DR PO SCH (07:30)
[2022-04-25] MEDS ORDERED: LEVOTHYROXINE SODIUM 25 MCG TABLET PO SCH (07:30)
[2022-04-25 07:46] LABS: MAGNESIUM 1.9 mg/dL (1.8-2.4); PHOSPHORUS 5.4 mg/dL (2.5-4.9); POTASSIUM 4.7 mmol/L (3.5-5.1)
[2022-04-25 07:59] LABS: CREATININE 11.7 mg/dL (0.6-1.3)
[2022-04-25 08:44] LABS: BASOPHILS % (AUTO) 0.5 % (0.0-2.0); EOSINOPHILS % (AUTO) 4.8 % (0.0-6.0); LYMPHOCYTES # (AUTO) 0.2 K/uL (0.8-4.8); LYMPHOCYTES % (AUTO) 6.5 % (20.0-44.0); MEAN CORPUSCULAR HGB CONC 33 g/dl (31.0-36.0); MEAN CORPUSCULAR VOLUME 95 fL (82-100); MONOCYTES # (AUTO) 0.3 K/uL (0.1-1.30); MONOCYTES % (AUTO) 9.6 % (2.0-12.0); NEUTROPHILS # (AUTO) 2.8 K/uL (1.8-8.9); NEUTROPHILS % (AUTO) 78.6 % (43.0-81.0); PLATELET COUNT (AUTO) 84 K/uL (150-450); RED BLOOD CELL COUNT(AUTO) 2.06 MIL/uL (4.0-5.2); WHITE BLOOD COUNT (AUTO) 3.6 K/uL (4.3-11.0)
[2022-04-25] MEDS: CARVEDILOL 12.5 MG TABLET PO SCH ×2 (08:56→17:22)
[2022-04-25] MEDS: TOPIRAMATE 100 MG TABLET PO SCH ×2 (08:57→17:22)
[2022-04-25] MEDS: GABAPENTIN 100 MG CAPSULE PO SCH ×3 (08:57→17:22)
[2022-04-25] MEDS: SEVELAMER CARBONATE 800 MG TABLET PO SCH ×3 (08:57→17:22)
[2022-04-25] MEDS ORDERED: ASPIRIN 81 MG TAB.CHEW PO SCH (09:00)
[2022-04-25] MEDS ORDERED: AMLODIPINE BESYLATE 10 MG TABLET PO SCH (09:00)
[2022-04-25] MEDS ORDERED: DULOXETINE HCL 20 MG CAPSULE.DR PO SCH (09:00)
[2022-04-25] MEDS ORDERED: CALCITRIOL 0.25 MCG CAPSULE PO SCH (09:00)
[2022-04-25 09:02] LABS: HEMATOCRIT 20 % (33-45); HEMOGLOBIN 6.5 g/dL (11.5-14.8)
[2022-04-25] MEDS: APIXABAN 2.5 MG TABLET PO SCH ×2 (09:05→17:24)
[2022-04-25 09:21] LABS: THYROID STIMULATING HORMONE 4.582 uIU/mL (0.358-3.74)
[2022-04-25] MEDS ORDERED: EPOETIN ALFA (4000 UNIT) 4,000 UNIT/ML VIAL SQ PRN (10:30)
[2022-04-25] MEDS: diphenhydrAMINE HCL 50 MG/ML VIAL IV PRN (12:01)
[2022-04-25] MEDS: hydrALAZINE HCL 50 MG TABLET PO SCH ×2 (13:38→17:24)
--- NOTE | 2022-04-25 17:05 | NUR ---
per pt her friend is not answering and wants to leave in am,anthony forklift truck operator and cm notified.
[2022-04-25] MEDS ORDERED: diphenhydrAMINE HCL ELIX 25 MG/10 ML UDC PO PRN (17:30)
[2022-04-25] MEDS ORDERED: MORPHINE SULFATE INJ 4 MG/ML DISP.SYRIN IM PRN (17:30)
--- NOTE | 2022-04-25 17:52 | NUR ---
RECEIVED THE PATIENT FROM THE OFF-GOING NURSE, PATIENT A/O X 4, C/O PAIN/DISCOMFORT; PATIENT MEDICATED PER MD ORDERS, (SEE eMAR). PATIENT HAS (LT) UPPER ARM AV FISTULA, SITE WNL; DRY PROTECTIVE PRESSURE DRESSING IN PLACE. PATIENT TRANSFUSED WITH 1 UNIT PRBC, NO TRANSFUSION REACTION OBSERVED AND SCHEDULED FOR DISCHARGE HOME ROUTINE; DISCHARGE DELAYED, BECAUSE SHE WAS UNABLE TO GET IN TOUCH WITH HER RIDE HOME, BEING PROVIDED BY A FRIEND. ANGIO-CATH REMOVED, SITE WNL AND DRY PROTECTIVE/PRESSURE DRESSING IN PLACE. PATIENT EDUCATED ON THE IMPORTANCE FOLLOWING HER SCHEDULED HEMODIALYSIS TREATMENT, VERBALIZED UNDERSTANDING . DISCHARGE INSTRUCTIONS PROVIDED PATIENT PICKED UP BY HER FRIEND, LEFT STABLE AND AMBULATORY TO HER RIDE OUTSIDE.
[2022-04-25 20:24] LABS: EOSINOPHILS % (MANUAL) 7 % (0-4); LYMPHOCYTES % (MANUAL) 6 % (16-48); MONOCYTES % (MANUAL) 10 % (0-11.0); NEUTROPHILS % (MANUAL) 77 (42-76)
== END 2022-04-25 18:14 | disposition home or self-care (01) | DRG 199 ==
LOC: ER 15:47 → TELE1 21:58 → MEDSG1 04-25 11:03
PROVIDERS: ADMIT Nurse Practitioner Acute Care; ATTEND Nurse Practitioner Acute Care
PROC: 30233N1 Transfusion of Nonautologous Red Blood Cells into Peripheral Vein, Percutaneous Approach (ICD-10-PCS; principal; 2022-04-24)
PROC: 05H933Z Insertion of Infusion Device into Right Brachial Vein, Percutaneous Approach (ICD-10-PCS; 2022-04-24)
PROC: 5A1D70Z Performance of Urinary Filtration, Intermittent, Less than 6 Hours Per Day (ICD-10-PCS; 2022-04-24)
DX: I16.0 Hypertensive urgency (principal); D61.818 Other pancytopenia; I27.20 Pulmonary hypertension, unspecified; N18.6 End stage renal disease; G45.9 Transient cerebral ischemic attack, unspecified; I50.9 Heart failure, unspecified; I13.2 Hypertensive heart and chronic kidney disease with heart failure and with stage 5 chronic kidney disease, or end stage renal disease; Z79.01 Long term (current) use of anticoagulants; G40.909 Epilepsy, unspecified, not intractable, without status epilepticus; I48.20 Chronic atrial fibrillation, unspecified; D64.9 Anemia, unspecified; Z20.822 Contact with and (suspected) exposure to COVID-19; G43.909 Migraine, unspecified, not intractable, without status migrainosus; J44.9 Chronic obstructive pulmonary disease, unspecified; K21.9 Gastro-esophageal reflux disease without esophagitis; Z86.718 Personal history of other venous thrombosis and embolism; Z86.711 Personal history of pulmonary embolism; Z91.15 Patient's noncompliance with renal dialysis; Z98.891 History of uterine scar from previous surgery; Z90.49 Acquired absence of other specified parts of digestive tract; Z99.2 Dependence on renal dialysis; E03.9 Hypothyroidism, unspecified; G89.4 Chronic pain syndrome; Z88.6 Allergy status to analgesic agent; Z88.1 Allergy status to other antibiotic agents; Z91.041 Radiographic dye allergy status; Z88.5 Allergy status to narcotic agent; Z91.013 Allergy to seafood; Z91.048 Other nonmedicinal substance allergy status; Z79.82 Long term (current) use of aspirin; Z79.51 Long term (current) use of inhaled steroids; Z79.899 Other long term (current) drug therapy; Z86.73 Personal history of transient ischemic attack (TIA), and cerebral infarction without residual deficits; M81.0 Age-related osteoporosis without current pathological fracture; L30.9 Dermatitis, unspecified; Z98.890 Other specified postprocedural states; M89.8X9 Other specified disorders of bone, unspecified site; E66.9 Obesity, unspecified; E87.5 Hyperkalemia; Z68.32 Body mass index [BMI] 32.0-32.9, adult; J45.909 Unspecified asthma, uncomplicated; F32.A Depression, unspecified
CPT/HCPCS: 36410; 36415; 71045-TC; 80048-TC; 80061-TC; 80076-TC; 83735-TC; 84100-TC; 84439-TC; 84443-TC; 84484-TC; 85025-TC; 85730-TC; 86850-TC; 87081-TC; 90935-TC; 94799-TC; C9803; G0378; J1200; J2270; J7040; J7050; P9016

== ENCOUNTER 2022-11-20 01:12 | Inpatient (IN) | payer OTHER ==
[~2022-11-20] VITALS: Ht 160 cm; Wt 94.8 kg
[~2022-11-20 01:12] MED LIST changes: -HYDR100T27 PO
[2022-11-20] MEDS ORDERED: ONDANSETRON HCL/PF 4 MG/2 ML VIAL IVP ONE (01:30)
[2022-11-20] MEDS ORDERED: IV NS 0.9% 500 ML BAG IV ONE (01:30)
[2022-11-20] MEDS ORDERED: ONDANSETRON HCL/PF 4 MG/2 ML VIAL ONE (02:01)
[2022-11-20 02:36] LABS: EOSINOPHILS % (AUTO) 1.2 % (0.0-6.0); HEMATOCRIT 26 % (33-45); HEMOGLOBIN 8.2 g/dL (11.5-14.8); LYMPHOCYTES # (AUTO) 0.2 K/uL (0.8-4.8); LYMPHOCYTES % (AUTO) 5.2 % (20.0-44.0); MEAN CORPUSCULAR HGB CONC 32 g/dl (31.0-36.0); MEAN CORPUSCULAR VOLUME 95 fL (82-100); MONOCYTES # (AUTO) 0.5 K/uL (0.1-1.30); NEUTROPHILS # (AUTO) 2.6 K/uL (1.8-8.9); NEUTROPHILS % (AUTO) 78.6 % (43.0-81.0); PLATELET COUNT (AUTO) 126 K/uL (150-450); RED BLOOD CELL COUNT(AUTO) 2.69 MIL/uL (4.0-5.2); WHITE BLOOD COUNT (AUTO) 3.3 K/uL (4.3-11.0)
[2022-11-20 02:47] LABS: CARBON DIOXIDE 20 mmol/L (21-32); CHLORIDE 99 mmol/L (98-107); GLUCOSE 94 mg/dL (74-106); SODIUM SERUM 137 mmol/L (136-145)
[2022-11-20] MEDS ORDERED: MORPHINE SULFATE INJ 4 MG/ML DISP.SYRIN ONE (02:51)
[2022-11-20 02:53] LABS: ALANINE AMINOTRANSFERASE 15 U/L (12-78); ALBUMIN 3.6 g/dL (3.4-5.0); ALKALINE PHOSPHATASE 98 U/L (46-116); ASPARTATE AMINOTRANSFERASE 15 U/L (15-37); BILIRUBIN,DIRECT 0.2 mg/dL (0.0-0.2); BILIRUBIN,TOTAL 0.6 mg/dL (0.2-1.0); LIPASE 40 U/L (73-393)
[2022-11-20] MEDS ORDERED: FUROSEMIDE 40 MG/4 ML VIAL ONE (02:58)
[2022-11-20] MEDS ORDERED: SODIUM POLYSTYRENE SULFONATE 15 G/60 ML BOTTLE ONE (02:59)
[2022-11-20] MEDS ORDERED: CALCIUM CHLORIDE 1,000 MG/10 ML DISP.SYRIN ONE (02:59)
[2022-11-20] MEDS ORDERED: SODIUM BICARBONATE SYR 50 MEQ/50 ML DISP.SYRIN ONE (02:59)
[2022-11-20] MEDS ORDERED: FUROSEMIDE 40 MG/4 ML VIAL IV ONE (03:00)
[2022-11-20] MEDS ORDERED: SODIUM POLYSTYRENE SULFONATE 15 G/60 ML BOTTLE PO ONE (03:00)
[2022-11-20] MEDS ORDERED: CALCIUM CHLORIDE 1,000 MG/10 ML DISP.SYRIN IV ONE (03:00)
[2022-11-20] MEDS ORDERED: SODIUM BICARBONATE SYR 50 MEQ/50 ML DISP.SYRIN IV ONE (03:00)
[2022-11-20] MEDS ORDERED: MORPHINE SULFATE INJ 2 MG/ML DISP.SYRIN IV ONE (03:00)
[2022-11-20 03:48] LABS: CREATININE 13.1 mg/dL (0.6-1.3); POTASSIUM 7.1 mmol/L (3.5-5.1); UREA NITROGEN, BLOOD 107 mg/dL (7-18)
[2022-11-20] MEDS ORDERED: MORPHINE SULFATE INJ 2 MG/ML DISP.SYRIN IV PRN (05:30)
[2022-11-20] MEDS ORDERED: Z GUARD REMEDY 4 OZ OINT TP PRN (05:30)
[2022-11-20] MEDS ORDERED: TEMAZEPAM 15 MG CAPSULE PO PRN (05:30)
[2022-11-20] MEDS ORDERED: ONDANSETRON HCL/PF 4 MG/2 ML VIAL IVP PRN (05:30)
[2022-11-20] MEDS: PANTOPRAZOLE 40 MG TABLET.DR PO SCH (07:45)
[2022-11-20 08:00] VITALS: BP 166/121
[2022-11-20] MEDS ORDERED: CARV25TA2 PO (09:47)
[2022-11-20] MEDS ORDERED: SEVE800T8 PO (09:47)
[2022-11-20] MEDS ORDERED: APIX5TAB PO (09:47)
[2022-11-20] MEDS ORDERED: PANT40TA49 PO (09:47)
[2022-11-20] MEDS ORDERED: CALC0.5C3 PO (09:47)
[2022-11-20] MEDS ORDERED: TOPI200T PO (09:47)
[2022-11-20] MEDS ORDERED: LEVO25TA7 PO (09:47)
[2022-11-20] MEDS ORDERED: ASPI-1169 PO (09:47)
[2022-11-20] MEDS ORDERED: ISOS30TA86 PO (09:47)
[2022-11-20] MEDS ORDERED: NIFE90TA38 PO (09:47)
[2022-11-20] MEDS ORDERED: HYDR100T27 PO (09:49)
[2022-11-20] MEDS ORDERED: DIPH25CA51 PO (09:49)
[2022-11-20] MEDS: CARVEDILOL 12.5 MG TABLET PO SCH ×2 (10:10→17:18)
[2022-11-20] MEDS: hydrALAZINE HCL 50 MG TABLET PO SCH ×2 (10:10→17:04)
[2022-11-20] MEDS: NIFEdipine XL (30MG) 30 MG TAB PO SCH (10:11)
[2022-11-20] MEDS: ISOSORBIDE MONONITRATE (30MG) 30 MG TAB.SR.24H PO SCH (10:11)
[2022-11-20] MEDS ORDERED: PANTOPRAZOLE 40 MG TABLET.DR PO SCH (10:30)
[2022-11-20] MEDS: CALCITRIOL 0.25 MCG CAPSULE PO SCH (10:48)
[2022-11-20] MEDS: TOPIRAMATE 100 MG TABLET PO SCH ×2 (10:48→20:43)
[2022-11-20] MEDS: LEVOTHYROXINE SODIUM 50 MCG TABLET PO SCH (10:48)
[2022-11-20 11:04] LABS: IRON, SERUM 48 ug/dl (50-175); TOTAL IRON BINDING CAPACITY 177 ug/dl (250-450)
[2022-11-20] MEDS: ASPIRIN 81 MG TAB.CHEW PO SCH (11:24)
[2022-11-20] MEDS: APIXABAN 5 MG TABLET PO SCH ×2 (11:24→17:06)
[2022-11-20] MEDS: MORPHINE SULFATE INJ 4 MG/ML DISP.SYRIN IV PRN ×3 (11:41→22:50)
[2022-11-20 12:00] VITALS: BP 142/110
[2022-11-20] MEDS: SEVELAMER CARBONATE 800 MG TABLET PO SCH ×2 (12:03→17:04)
[2022-11-20 12:22] LABS: CALCIUM, SERUM 8.4 mg/dL (8.5-10.1); POTASSIUM 6.1 mmol/L (3.5-5.1)
[2022-11-20 12:23] LABS: CREATININE 13.6 mg/dL (0.6-1.3)
[2022-11-20] MEDS: diphenhydrAMINE HCL 50 MG/ML VIAL IV PRN (13:49)
[2022-11-20] MEDS ORDERED: MORPHINE SULFATE INJ 4 MG/ML DISP.SYRIN IV STA (14:16)
[2022-11-20 16:00] VITALS: BP 165/114
[2022-11-20 20:00] VITALS: BP 166/89
[2022-11-20] MEDS: diphenhydrAMINE HCL 25 MG CAPSULE PO SCH ×2 (20:43→20:49)
[2022-11-20] MEDS ORDERED: LORAZEPAM 1 MG TABLET PO PRN (21:00)
[2022-11-20] MEDS ORDERED: LORAZEPAM INJ 2 MG/ML VIAL IV ONE (21:30)
[2022-11-21] VITALS: BP 147/114
[2022-11-21] MEDS: MORPHINE SULFATE INJ 4 MG/ML DISP.SYRIN IV PRN ×4 (04:02→21:53)
[2022-11-21 04:30] VITALS: BP 149/94
[2022-11-21 07:35] LABS: EOSINOPHILS % (AUTO) 3.1 % (0.0-6.0); HEMATOCRIT 26 % (33-45); HEMOGLOBIN 8.4 g/dL (11.5-14.8); LYMPHOCYTES # (AUTO) 0.2 K/uL (0.8-4.8); LYMPHOCYTES % (AUTO) 6.2 % (20.0-44.0); MEAN CORPUSCULAR HGB CONC 32 g/dl (31.0-36.0); MEAN CORPUSCULAR VOLUME 95 fL (82-100); MONOCYTES # (AUTO) 0.4 K/uL (0.1-1.30); MONOCYTES % (AUTO) 13.5 % (2.0-12.0); NEUTROPHILS # (AUTO) 2.3 K/uL (1.8-8.9); NEUTROPHILS % (AUTO) 76.2 % (43.0-81.0); PLATELET COUNT (AUTO) 147 K/uL (150-450); RED BLOOD CELL COUNT(AUTO) 2.77 MIL/uL (4.0-5.2); WHITE BLOOD COUNT (AUTO) 3.1 K/uL (4.3-11.0)
[2022-11-21 07:43] LABS: MAGNESIUM 1.9 mg/dL (1.8-2.4); POTASSIUM 5.3 mmol/L (3.5-5.1)
[2022-11-21 07:47] LABS: CREATININE 12.4 mg/dL (0.6-1.3)
[2022-11-21 08:00] VITALS: BP 143/103
[2022-11-21] MEDS: PANTOPRAZOLE 40 MG TABLET.DR PO SCH (08:02)
[2022-11-21] MEDS: LEVOTHYROXINE SODIUM 50 MCG TABLET PO SCH (08:02)
[2022-11-21] MEDS: SEVELAMER CARBONATE 800 MG TABLET PO SCH ×3 (08:02→17:09)
[2022-11-21] MEDS: CALCITRIOL 0.25 MCG CAPSULE PO SCH (08:44)
[2022-11-21] MEDS: NIFEdipine XL (30MG) 30 MG TAB PO SCH (08:45)
[2022-11-21] MEDS: diphenhydrAMINE HCL 25 MG CAPSULE PO SCH ×2 (08:46→21:39)
[2022-11-21] MEDS: ASPIRIN 81 MG TAB.CHEW PO SCH (08:46)
[2022-11-21] MEDS: hydrALAZINE HCL 50 MG TABLET PO SCH ×2 (08:46→17:00)
[2022-11-21] MEDS: ISOSORBIDE MONONITRATE (30MG) 30 MG TAB.SR.24H PO SCH (08:46)
[2022-11-21] MEDS: TOPIRAMATE 100 MG TABLET PO SCH ×2 (08:46→21:39)
[2022-11-21] MEDS: APIXABAN 5 MG TABLET PO SCH ×2 (08:48→16:56)
[2022-11-21] MEDS: CARVEDILOL 12.5 MG TABLET PO SCH ×2 (08:51→17:00)
[2022-11-21 12:00] VITALS: BP 133/86
[2022-11-21 16:00] VITALS: BP 112/78
[2022-11-21] MEDS ORDERED: LORAZEPAM INJ 2 MG/ML VIAL IV ONE (17:30)
[2022-11-21] MEDS: diphenhydrAMINE HCL 50 MG/ML VIAL IV PRN (19:15)
[2022-11-21 20:48] VITALS: BP 103/76
[2022-11-22] VITALS: BP 129/68
[2022-11-22] MEDS: MORPHINE SULFATE INJ 4 MG/ML DISP.SYRIN IV PRN ×4 (02:13→21:06)
[2022-11-22 04:00] VITALS: BP 137/92
[2022-11-22] MEDS: SEVELAMER CARBONATE 800 MG TABLET PO SCH ×3 (07:51→17:18)
[2022-11-22] MEDS: PANTOPRAZOLE 40 MG TABLET.DR PO SCH (07:51)
[2022-11-22] MEDS: LEVOTHYROXINE SODIUM 50 MCG TABLET PO SCH (07:51)
[2022-11-22 08:00] VITALS: BP 146/100
[2022-11-22] MEDS: APIXABAN 5 MG TABLET PO SCH ×2 (08:30→16:40)
[2022-11-22] MEDS: CALCITRIOL 0.25 MCG CAPSULE PO SCH (08:31)
[2022-11-22] MEDS: ASPIRIN 81 MG TAB.CHEW PO SCH (08:32)
[2022-11-22] MEDS: ISOSORBIDE MONONITRATE (30MG) 30 MG TAB.SR.24H PO SCH (08:32)
[2022-11-22] MEDS: hydrALAZINE HCL 50 MG TABLET PO SCH ×2 (08:32→16:39)
[2022-11-22] MEDS: CARVEDILOL 12.5 MG TABLET PO SCH ×2 (08:32→16:39)
[2022-11-22] MEDS: NIFEdipine XL (30MG) 30 MG TAB PO SCH (08:33)
[2022-11-22] MEDS: TOPIRAMATE 100 MG TABLET PO SCH ×2 (08:33→20:24)
[2022-11-22] MEDS: diphenhydrAMINE HCL 25 MG CAPSULE PO SCH ×2 (08:33→20:24)
[2022-11-22] MEDS: diphenhydrAMINE HCL 50 MG/ML VIAL IV PRN (09:19)
[2022-11-22 12:00] VITALS: BP 156/114
[2022-11-22 16:00] VITALS: BP 122/85
[2022-11-22] MEDS: LORAZEPAM INJ 2 MG/ML VIAL IV PRN (18:09)
[2022-11-22 20:00] VITALS: BP 113/77
[2022-11-23] VITALS: BP 125/87
[2022-11-23] MEDS: LORAZEPAM INJ 2 MG/ML VIAL IV PRN ×2 (00:12→09:27)
[2022-11-23 04:00] VITALS: BP 118/82
[2022-11-23] MEDS: MORPHINE SULFATE INJ 4 MG/ML DISP.SYRIN IV PRN ×3 (05:42→17:26)
[2022-11-23 08:00] VITALS: BP 137/79
[2022-11-23] MEDS: SEVELAMER CARBONATE 800 MG TABLET PO SCH ×3 (08:03→17:25)
[2022-11-23] MEDS: LEVOTHYROXINE SODIUM 50 MCG TABLET PO SCH (08:03)
[2022-11-23] MEDS: PANTOPRAZOLE 40 MG TABLET.DR PO SCH (08:03)
[2022-11-23] MEDS: ASPIRIN 81 MG TAB.CHEW PO SCH (08:57)
[2022-11-23] MEDS: hydrALAZINE HCL 50 MG TABLET PO SCH ×2 (08:57→17:25)
[2022-11-23] MEDS: CARVEDILOL 12.5 MG TABLET PO SCH ×2 (08:58→17:25)
[2022-11-23] MEDS: diphenhydrAMINE HCL 25 MG CAPSULE PO SCH (08:58)
[2022-11-23] MEDS: CALCITRIOL 0.25 MCG CAPSULE PO SCH (08:59)
[2022-11-23] MEDS: TOPIRAMATE 100 MG TABLET PO SCH (08:59)
[2022-11-23] MEDS: ISOSORBIDE MONONITRATE (30MG) 30 MG TAB.SR.24H PO SCH (08:59)
[2022-11-23] MEDS: NIFEdipine XL (30MG) 30 MG TAB PO SCH (08:59)
[2022-11-23] MEDS: APIXABAN 5 MG TABLET PO SCH ×2 (09:05→17:27)
[2022-11-23] MEDS: diphenhydrAMINE HCL 50 MG/ML VIAL IV PRN (10:32)
[2022-11-23 12:00] VITALS: BP 126/91
[2022-11-23 16:00] VITALS: BP 145/60
[2022-11-23 17:25] VITALS: BP 145/60
[2022-11-25] MEDS ORDERED: SODIUM POLYSTYRENE SULFONATE 15 G/60 ML BOTTLE ONE (22:59)
== END 2022-11-23 18:15 | disposition left against medical advice (07) | DRG 425 ==
LOC: ER 01:13 → TELE1 05:08 → TELE-TD 05:27 → TELE1 14:25
PROVIDERS: ADMIT Nurse Practitioner Acute Care; ATTEND Nurse Practitioner Acute Care
PROC: 5A1D70Z Performance of Urinary Filtration, Intermittent, Less than 6 Hours Per Day (ICD-10-PCS; 2022-11-20)
PROC: 05H533Z Insertion of Infusion Device into Right Subclavian Vein, Percutaneous Approach (ICD-10-PCS; principal; 2022-11-22)
PROC: B546ZZA Ultrasonography of Right Subclavian Vein, Guidance (ICD-10-PCS; 2022-11-22)
DX: E87.5 Hyperkalemia (principal); I13.2 Hypertensive heart and chronic kidney disease with heart failure and with stage 5 chronic kidney disease, or end stage renal disease; D61.818 Other pancytopenia; N18.6 End stage renal disease; R18.8 Other ascites; D63.1 Anemia in chronic kidney disease; E83.9 Disorder of mineral metabolism, unspecified; I48.20 Chronic atrial fibrillation, unspecified; Z79.01 Long term (current) use of anticoagulants; I16.0 Hypertensive urgency; I50.9 Heart failure, unspecified; G40.909 Epilepsy, unspecified, not intractable, without status epilepticus; E03.9 Hypothyroidism, unspecified; E66.9 Obesity, unspecified; F41.9 Anxiety disorder, unspecified; G89.4 Chronic pain syndrome; K21.9 Gastro-esophageal reflux disease without esophagitis; Z86.73 Personal history of transient ischemic attack (TIA), and cerebral infarction without residual deficits; Z91.158 Patient's noncompliance with renal dialysis for other reason; J45.909 Unspecified asthma, uncomplicated; Z90.49 Acquired absence of other specified parts of digestive tract; Z99.2 Dependence on renal dialysis; Z68.37 Body mass index [BMI] 37.0-37.9, adult; J44.9 Chronic obstructive pulmonary disease, unspecified; Z86.718 Personal history of other venous thrombosis and embolism; R09.89 Other specified symptoms and signs involving the circulatory and respiratory systems; F32.A Depression, unspecified
CPT/HCPCS: 31720; 36415; 71045-TC; 80048-TC; 80076-TC; 82310-TC; 82962-TC; 83540-TC; 83690-TC; 83735-TC; 83970; 84100-TC; 84484-TC; 85025-TC; 85730-TC; 86704; 86705; 86706; 86803; 87081-TC; 87340; 90935-TC; 94640-TC; 94799-TC; A4623; A7526; G0378; J1200; J1940; J2060; J2270; J2405; J3490; J7030; J7040; Q0163

== ENCOUNTER 2022-11-28 15:14 | Inpatient (IN) | payer OTHER ==
[~2022-11-28] VITALS: Ht 165.1 cm; Wt 86.2 kg
[~2022-11-28 15:14] MED LIST changes: -ALBU18HF2 IH; -AMLO-213 PO; -APIX2.5T PO; +APIX5TAB PO; +DIPH25CA51 PO; -DULO20CA19 PO; -GABA-532 PO; +HYDR100T27 PO; +ISOS30TA86 PO; -MONT10TA22 PO; +NIFE90TA38 PO; +PANT40TA49 PO; -QUET200T PO
--- NOTE | 2022-11-28 15:45 | NUR ---
C/O SOB, LEFT SIDED CP NON RADIATING, AND ABDOMINAL PAIN X 4 HOURS.
--- NOTE | 2022-11-28 15:59 | NUR ---
ESTABLISHED IV LINE 20 G AT RIGHT UPPER ARM
--- NOTE | 2022-11-28 16:00 | NUR ---
BLOOD SAMPLE OBTAINED SENT TO LAB
[2022-11-28 16:09] LABS: BASOPHILS % (AUTO) 0.1 % (0.0-2.0); EOSINOPHILS % (AUTO) 1.7 % (0.0-6.0); HEMATOCRIT 23 % (33-45); HEMOGLOBIN 7.3 g/dL (11.5-14.8); LYMPHOCYTES # (AUTO) 0.2 K/uL (0.8-4.8); LYMPHOCYTES % (AUTO) 5.3 % (20.0-44.0); MEAN CORPUSCULAR HGB CONC 32 g/dl (31.0-36.0); MEAN CORPUSCULAR VOLUME 96 fL (82-100); MONOCYTES # (AUTO) 0.5 K/uL (0.1-1.30); NEUTROPHILS # (AUTO) 2.7 K/uL (1.8-8.9); NEUTROPHILS % (AUTO) 77.9 % (43.0-81.0); PLATELET COUNT (AUTO) 142 K/uL (150-450); RED BLOOD CELL COUNT(AUTO) 2.38 MIL/uL (4.0-5.2); WHITE BLOOD COUNT (AUTO) 3.5 K/uL (4.3-11.0)
[2022-11-28 16:25] LABS: CALCIUM, SERUM 8.8 mg/dL (8.5-10.1); CARBON DIOXIDE 25 mmol/L (21-32); CHLORIDE 104 mmol/L (98-107); GLUCOSE 109 mg/dL (74-106); POTASSIUM 5.8 mmol/L (3.5-5.1); SODIUM SERUM 141 mmol/L (136-145); UREA NITROGEN, BLOOD 53 mg/dL (7-18)
[2022-11-28 16:28] LABS: CREATININE 7.6 mg/dL (0.6-1.3)
[2022-11-28] MEDS ORDERED: MORPHINE SULFATE INJ 2 MG/ML DISP.SYRIN IV ONE (16:30)
[2022-11-28 16:32] LABS: ALANINE AMINOTRANSFERASE 13 U/L (12-78); ALBUMIN 3.4 g/dL (3.4-5.0); ALKALINE PHOSPHATASE 93 U/L (46-116); ASPARTATE AMINOTRANSFERASE 18 U/L (15-37); BILIRUBIN,DIRECT 0.2 mg/dL (0.0-0.2); BILIRUBIN,TOTAL 0.5 mg/dL (0.2-1.0); TOTAL PROTEIN, SERUM 7.5 g/dL (6.4-8.2)
[2022-11-28] MEDS ORDERED: MORPHINE SULFATE INJ 4 MG/ML DISP.SYRIN ONE (16:46)
[2022-11-28] MEDS ORDERED: MAGNESIUM HYDROXIDE 30 ML UDC PO PRN (17:00)
[2022-11-28] MEDS ORDERED: MAG HYDROX/AL HYDROX/SIMETH 30 ML UDC PO PRN (17:00)
[2022-11-28] MEDS ORDERED: ZOLPIDEM TARTRATE 5 MG TABLET PO PRN (17:00)
[2022-11-28] MEDS ORDERED: ONDANSETRON HCL/PF 4 MG/2 ML VIAL IVP PRN (17:00)
[2022-11-28] MEDS ORDERED: Z GUARD REMEDY 4 OZ OINT TP PRN (17:00)
[2022-11-28] MEDS ORDERED: ACETAMINOPHEN 325 MG TABLET PO PRN (17:00)
--- NOTE | 2022-11-28 17:25 | NUR ---
ROOM 113-1
[2022-11-28] MEDS ORDERED: LORAZEPAM INJ 2 MG/ML VIAL IV ONE ×2 (17:30→21:30)
[2022-11-28 17:34] LABS: EOSINOPHILS % (MANUAL) 1 % (0-4); LYMPHOCYTES % (MANUAL) 9 % (16-48); MONOCYTES % (MANUAL) 6 % (0-11.0); NEUTROPHILS % (MANUAL) 84 (42-76)
[2022-11-28] MEDS ORDERED: LORAZEPAM INJ 2 MG/ML VIAL ONE (17:35)
--- NOTE | 2022-11-28 18:10 | NUR ---
REPORT GIVEN TO ANGELA STREET
--- NOTE | 2022-11-28 18:47 | NUR ---
MOVED TO INPATIENT ROOM SAFELY PER ACLS PROTOCOL
--- NOTE | 2022-11-28 19:00 | NUR ---
HEEL BRUSHER NOTE 02 SAT VIA TRACH 5L 100% SAT.
--- NOTE | 2022-11-28 19:00 | NUR ---
WOOD POLE TREATER ADMISSION NOTE PATIENT RECEIVED FROM ER A/A/OX3. PATIENT HAS A TRACH, KATEIRN AV-FISTULA, RIGH UA #20G SALINE LOCK. ORIENTED TO ROOM, NO S/S OF RESPIRATORY DISTRESS NOTED. B/P 160/90 TELE SR HR 99 RESP 20 . PATIENT IS SITTING ON THE CHAIR. SAFFTY MEASURES IN PLACE, BED LOCKED TO THE LOWEST POSITION, CALL LIGHT AND TABLE WITHIN REACH. I WILL ENDORSE TO THE FOLLOWING NURSE TO DO THE FULL ADMISSION ASSESSMENT.
[2022-11-28 20:00] VITALS: BP 145/95
[2022-11-28] MEDS: diphenhydrAMINE HCL 25 MG CAPSULE PO SCH (21:00)
[2022-11-28] MEDS: SEVELAMER CARBONATE 800 MG TABLET PO SCH (21:00)
[2022-11-28] MEDS: APIXABAN 5 MG TABLET PO SCH (21:02)
--- NOTE | 2022-11-28 21:11 | NUR ---
RN NOTE INFORMED CHEMO TAYLOR THAT PATIENT IS REQUESTING MORPHINE AND ATIVAN. REFUSE TYLENOL. RECEIVE ORDER FOR ATIVAN 1MG X1.
[2022-11-28] MEDS ORDERED: HYDROCODONE/APAP 5/325MG TABLET PO PRN (23:30)
--- NOTE | 2022-11-29 01:12 | NUR ---
RN NOTE INFORMED DRILLING CONTRACTOR CHEMO HEATON HAT PATIENT IS ALLERGY TO NORCO, NEVER APPROVED BY PHARMACY. ASKING FOR MORPHINE. RECEIVED ORDER FOR TRAMADOL 50MG PO Q6HR PRN. ALLERGY NOTIFICATION CAME UP, PER BATCHMAKER OK TO GIVE. ALSO INFORMED BATCHMAKER THAT PATIENT BP ELEVATED, NO PRN. PATIENT IS ALSO REFUSING TELE MONITOR.
[2022-11-29] MEDS ORDERED: TRAMADOL HCL 50 MG TABLET PO PRN (01:30)
--- NOTE | 2022-11-29 06:40 | NUR ---
RN CLOSING NOTE A/OX3. TRACH TO T-PIECE AT 5L. TAKES OFF O2. AMBULATES IN HALLWAY 02 SAY 98% ON ROOM AIR. SINUS RHTYHM/ SINUS TACHYCARDIA WHEN ON MONITOR. PRN TRAMADOL GIVEN X1, ATIVAN GIVEN X1. REFUSING TO WEAR MONITOR. NURSES SUPERVISOR AWARE. REFUSED SKIN ASSESSMENT. REFUSED 0400 VS. REFUSED BMP REDRAW AND AM LABS. NPO FOR ABD US. PLAN FOR HD TODAY. Addendum: 11/29/22 at 0718 by SHAYNA MIRANDA RN REFUSED AM LABS, ENDORSED TO AM SHIFT.
--- NOTE | 2022-11-29 07:00 | NUR ---
RN OPENING NOTE PATIENT A/OX3. VERBALLY RESPONSIVE WITH TRACH TO T-PIECE AT 5L. TAKES OFF O2 REPEATEDLY BUT 02 SAT OVER 94%. ON ROOM AIR. SINUS RHYTHM SINUS TACHYCARDIA WHEN ON MONITOR BUT REFUSES TELEMONITOR, REFUSED BMP REDRAW AND AM LABS, CREATININE AT 7.6, POTASSIUM AT 5.8, BUN 5.3 SINCE YESTERDAY, PER DOG BEAUTICIAN NURSE DOG BEAUTICIAN FURNACE CHECKER NOTIFIED. MORNING MD WILL BE MADE AWARE WELL. NPO FOR ABD US. PLAN FOR HD TODAY. IV ACCESS ON RUP PATENT AND FLUSHING WELL. KATERIN FISTULA. ALL SAFETY MEASURES IN PLACE, BED IN LOWEST AND LOCKED POSITION, TABLE AND CALL LIGHT WITHIN REACH, SIDE RAILS UP X2. WILL CONTINUE TO MONITOR.
[2022-11-29 08:00] VITALS: BP 150/95
[2022-11-29] MEDS: SEVELAMER CARBONATE 800 MG TABLET PO SCH ×4 (08:00→17:01)
[2022-11-29] MEDS: ISOSORBIDE MONONITRATE (30MG) 30 MG TAB.SR.24H PO SCH ×2 (08:22→09:00)
[2022-11-29] MEDS: APIXABAN 5 MG TABLET PO SCH ×3 (08:23→16:52)
[2022-11-29] MEDS: CARVEDILOL 12.5 MG TABLET PO SCH ×3 (08:24→16:53)
[2022-11-29] MEDS: LEVOTHYROXINE SODIUM 25 MCG TABLET PO SCH (08:24)
[2022-11-29] MEDS: CALCITRIOL 0.25 MCG CAPSULE PO SCH (08:24)
[2022-11-29] MEDS: NIFEdipine XL (30MG) 30 MG TAB PO SCH ×2 (08:24→09:00)
[2022-11-29] MEDS: ASPIRIN 81 MG TAB.CHEW PO SCH ×2 (08:24→08:39)
[2022-11-29] MEDS: TOPIRAMATE 100 MG TABLET PO SCH ×2 (08:24→16:52)
[2022-11-29] MEDS: diphenhydrAMINE HCL 25 MG CAPSULE PO SCH ×2 (08:24→21:00)
[2022-11-29] MEDS: hydrALAZINE HCL 50 MG TABLET PO SCH ×4 (08:25→16:57)
[2022-11-29] MEDS: PANTOPRAZOLE 40 MG TABLET.DR PO SCH (08:26)
--- NOTE | 2022-11-29 08:38 | NUR ---
RN NOTE SATURNINO Garcia NOTIFIED THAT PATIENTS CREATENIGN AT 7.6 POTASSIUM AT 5.8, BUN AT 53. RECEIVED ORDERS TO HOLD ELIQUIS AND ASPIRIN. ORDERS CARRIED OUT.
[2022-11-29] MEDS ORDERED: HYDROMORPHONE 1 MG/1 ML DISP.SYRIN IV STA (08:49)
--- NOTE | 2022-11-29 09:13 | NUR ---
RN NOTE BLOOD PRESSURE MEDICATIONS HOLD. PATIENT IS IN DIALYSIS.
--- NOTE | 2022-11-29 11:25 | NUR ---
RN NOTE RECEIVED ORDERS FROM SATURNINO Bravo TO GIVE ASPIRIN AND APIXABAN PER MD ORDER.
--- NOTE | 2022-11-29 11:44 | NUR ---
RN NOTE PATIENT FINISHED DIALYSIS, PER RN, 3,000 MLS TAKEN OUT.
[2022-11-29 12:00] VITALS: BP 150/95
--- NOTE | 2022-11-29 12:55 | NUR ---
RN NOTE RECEIVED ORDERS FORM HIGINIO Garcia TO GIVE 1MG ATIVAN IV Q6H PRN
[2022-11-29] MEDS: LORAZEPAM INJ 2 MG/ML VIAL IV PRN ×2 (13:42→21:58)
[2022-11-29 16:00] VITALS: BP 145/86
[2022-11-29] MEDS: HYDROMORPHONE 1 MG/1 ML DISP.SYRIN IV PRN (17:01)
--- NOTE | 2022-11-29 19:02 | NUR ---
RN CLOSING NOTE PATIENT A/OX3. VERBALLY RESPONSIVE WITH TRACH TO T-PIECE AT 5L. TAKES OFF O2 REPEATEDLY BUT 02 SAT OVER 99%. ON ROOM AIR WITH NO SOB, DISTRESS OR PAIN NOTED. IV ACCESS ON RUP PATENT AND FLUSHING WELL. KATERIN FISTULA. ALL SAFETY MEASURES IN PLACE, BED IN LOWEST AND LOCKED POSITION, TABLE AND CALL LIGHT WITHIN REACH, SIDE RAILS UP X2. REPORT WILL BE GIVEN TO PILOT PLANT OPERATOR HELPER NURSE.
[2022-11-29 20:00] VITALS: BP 129/99
--- NOTE | 2022-11-29 21:24 | NUR ---
PT REFUSED BENADRYL X3, R/B EXPLAINED X3, PT VERBALIZED UNDERSTANDING
[2022-11-30] VITALS: BP 119/82
[2022-11-30] MEDS: HYDROMORPHONE 1 MG/1 ML DISP.SYRIN IV PRN ×3 (02:37→14:26)
[2022-11-30 04:00] VITALS: BP 108/72
[2022-11-30] MEDS: LORAZEPAM INJ 2 MG/ML VIAL IV PRN ×3 (04:01→17:33)
--- NOTE | 2022-11-30 06:59 | NUR ---
SNACK STEWARDESS closing note PT resting in bed, in stable condition, breathing even and unlabored, 0 c/o pain, all due meds given per MD orders, tolerated well, all basic needs met and anticipated, all safety measures in place, call light with in reach, will continue to monitor
[2022-11-30 07:14] LABS: EOSINOPHILS % (AUTO) 3.1 % (0.0-6.0); HEMATOCRIT 23 % (33-45); HEMOGLOBIN 7.1 g/dL (11.5-14.8); LYMPHOCYTES # (AUTO) 0.1 K/uL (0.8-4.8); LYMPHOCYTES % (AUTO) 4.1 % (20.0-44.0); MEAN CORPUSCULAR HGB CONC 32 g/dl (31.0-36.0); MEAN CORPUSCULAR VOLUME 98 fL (82-100); MONOCYTES # (AUTO) 0.4 K/uL (0.1-1.30); MONOCYTES % (AUTO) 12.2 % (2.0-12.0); NEUTROPHILS # (AUTO) 2.7 K/uL (1.8-8.9); NEUTROPHILS % (AUTO) 79.6 % (43.0-81.0); PLATELET COUNT (AUTO) 128 K/uL (150-450); RED BLOOD CELL COUNT(AUTO) 2.31 MIL/uL (4.0-5.2); WHITE BLOOD COUNT (AUTO) 3.4 K/uL (4.3-11.0)
--- NOTE | 2022-11-30 07:53 | NUR ---
MS RN OPENING NOTE PATIENT RECEIVED AWAKE IN BED. APPEARS TO BE IN DISTRESS DUE TO PAIN. VERBALLY RESPONSIVE WITH TRACH TO T-PIECE AT 5L. IV ACCESS AT SALBADOR 20G PATENT AND INTACT. KATERIN FISTULA INTACT AND IN PLACE. ALL SAFETY MEASURES IN PLACE, BED IN LOWEST AND LOCKED POSITION, TABLE AND CALL LIGHT WITHIN REACH, SIDE RAILS UP X2. WILL CONTINUE TO MONITOR.
[2022-11-30 08:00] VITALS: BP 172/112
[2022-11-30 08:00] LABS: CALCIUM, SERUM 8.8 mg/dL (8.5-10.1); CREATININE 7.3 mg/dL (0.6-1.3); POTASSIUM 5.6 mmol/L (3.5-5.1)
[2022-11-30] MEDS: NIFEdipine XL (30MG) 30 MG TAB PO SCH (08:09)
[2022-11-30] MEDS: CALCITRIOL 0.25 MCG CAPSULE PO SCH (08:09)
[2022-11-30] MEDS: PANTOPRAZOLE 40 MG TABLET.DR PO SCH (08:09)
[2022-11-30] MEDS: diphenhydrAMINE HCL 25 MG CAPSULE PO SCH (08:10)
[2022-11-30] MEDS: ASPIRIN 81 MG TAB.CHEW PO SCH (08:10)
[2022-11-30] MEDS: LEVOTHYROXINE SODIUM 25 MCG TABLET PO SCH (08:10)
[2022-11-30] MEDS: TOPIRAMATE 100 MG TABLET PO SCH ×2 (08:10→17:33)
[2022-11-30] MEDS: ISOSORBIDE MONONITRATE (30MG) 30 MG TAB.SR.24H PO SCH (08:10)
[2022-11-30] MEDS: SEVELAMER CARBONATE 800 MG TABLET PO SCH ×3 (08:11→17:32)
[2022-11-30] MEDS: CARVEDILOL 12.5 MG TABLET PO SCH ×2 (08:11→17:33)
[2022-11-30] MEDS: hydrALAZINE HCL 50 MG TABLET PO SCH ×3 (08:11→17:32)
[2022-11-30] MEDS: APIXABAN 5 MG TABLET PO SCH ×3 (08:13→17:00)
--- NOTE | 2022-11-30 10:59 | NUR ---
PER HIGINIO MAY SHIP MATE, WILL TRANSFUSE ONE UNIT OF PRBC DUE TO HGB 7.1.
--- NOTE | 2022-11-30 10:59 | NUR ---
PROMISE HENRY. HIGINIO MAY VEHICLE LEASING AND RENTAL MANAGER NOTIFIED.
--- NOTE | 2022-11-30 12:19 | NUR ---
LAB CALLED AND STATED THAT THEY CANNOT GET BLOOD FOR TYPE AND SCREEN DESPITE MULTIPLE ATTEMPTS. THEY WILL ENDORSE IT TO ONCOMING SHIFT IN 30 MINUTES. NURSING UNIT CLERK AMADO FOSTER.
--- NOTE | 2022-11-30 13:52 | NUR ---
PATIENT REFUSED BLOOD DRAW FOR TYPE AND SCREEN. HIGINIO MAY NP NOTIFIED. PATIENT ALSO REFUSES MIDLINE INSERTION. Addendum: 11/30/22 at 1624 by AMAOD STOVALL RN JERSON FROM LAB CAN VERIFY
[2022-11-30 16:00] VITALS: BP 133/96
[2022-11-30 17:33] VITALS: BP 135/65
--- NOTE | 2022-11-30 17:35 | NUR ---
HELD ELIQUIS DUE TO HGB 7.1. HIGINIO MAY NOTIFIED.
--- NOTE | 2022-11-30 18:30 | NUR ---
MS RN CLOSING NOTE PATIENT AWAKE AND WALKING AROUND UNIT. ALERT AND ORIENTED X4. TRACH TO T-PIECE AT 5L, TOLERATING WELL WITH NO SOB OR S/S OF RESPIRATORY DISTRESS. IV ACCESS AT SALBADOR 20G PATENT AND INTACT. KATERIN FISTULA INTACT AND IN PLACE. ALL DUE MEDS GIVEN AND COMPLAINTS OF PAIN ADDRESSED. PATIENT IS NONCOMPLIANT WITH TREATMENTS. ALL SAFETY MEASURES IN PLACE, BED IN LOWEST AND LOCKED POSITION, TABLE AND CALL LIGHT WITHIN REACH, SIDE RAILS UP X2. WILL ENDORSE TO ONCOMING SHIFT FOR FRANSICO.
--- NOTE | 2022-11-30 19:15 | NUR ---
LIFE SCIENCES INSTRUCTOR opening note PT in stable condition, breathing even and unlabored, 0 s/s of acute distress, will continue to monitor
--- NOTE | 2022-11-30 20:05 | NUR ---
Pt left hospital AMA, pt refused to sign AMA form, private household worker spoke to pt attempting to convince her of her medical condition and risk of leaving AMA, police department notified as well as security guards and attempted to convince pt that she is medically unstable to leave, pt continued to refuse staying and left the hospital AMA
== END 2022-11-30 20:05 | disposition left against medical advice (07) | DRG 199 ==
LOC: ER 15:54 → TELE1 17:28 → MEDSG1 11-29 08:03
PROVIDERS: ADMIT Nurse Practitioner Acute Care; ATTEND Nurse Practitioner Acute Care
PROC: 5A1D70Z Performance of Urinary Filtration, Intermittent, Less than 6 Hours Per Day (ICD-10-PCS; principal; 2022-11-28)
DX: I16.0 Hypertensive urgency (principal); D61.818 Other pancytopenia; I27.20 Pulmonary hypertension, unspecified; N18.6 End stage renal disease; D63.8 Anemia in other chronic diseases classified elsewhere; E83.9 Disorder of mineral metabolism, unspecified; I50.9 Heart failure, unspecified; I13.2 Hypertensive heart and chronic kidney disease with heart failure and with stage 5 chronic kidney disease, or end stage renal disease; Z99.2 Dependence on renal dialysis; J96.10 Chronic respiratory failure, unspecified whether with hypoxia or hypercapnia; E87.5 Hyperkalemia; E03.9 Hypothyroidism, unspecified; E66.9 Obesity, unspecified; G89.4 Chronic pain syndrome; Z86.711 Personal history of pulmonary embolism; Z86.73 Personal history of transient ischemic attack (TIA), and cerebral infarction without residual deficits; Z86.718 Personal history of other venous thrombosis and embolism; Z95.828 Presence of other vascular implants and grafts; Z79.899 Other long term (current) drug therapy; K21.9 Gastro-esophageal reflux disease without esophagitis; G40.909 Epilepsy, unspecified, not intractable, without status epilepticus; I48.20 Chronic atrial fibrillation, unspecified; J44.9 Chronic obstructive pulmonary disease, unspecified; Z79.82 Long term (current) use of aspirin; Z88.1 Allergy status to other antibiotic agents; Z79.01 Long term (current) use of anticoagulants; Z90.49 Acquired absence of other specified parts of digestive tract; K74.60 Unspecified cirrhosis of liver; Z91.158 Patient's noncompliance with renal dialysis for other reason; Z93.0 Tracheostomy status
CPT/HCPCS: 31720; 36415; 71045-TC; 76705-TC; 80048-TC; 80076-TC; 84484-TC; 85025-TC; 90935-TC; 94640-TC; 94799-TC; G0378; J1170; J2060; J2270; Q0163

== ENCOUNTER 2022-12-20 01:00 | Inpatient (IN) | payer OTHER ==
[~2022-12-20] VITALS: Ht 165.1 cm; Wt 86.2 kg
[2022-12-20 01:23] VITALS: TEMP 98.6
[2022-12-20] MEDS ORDERED: ONDA4TAB5 PO (05:49)
[2022-12-20] MEDS ORDERED: DICY10CA37 PO (05:49)
[2022-12-20 07:20] VITALS: BP 165/104
[2022-12-20 07:52] LABS: EOSINOPHILS % (AUTO) 4.1 % (0.0-6.0); HEMATOCRIT 23 % (33-45); HEMOGLOBIN 7.4 g/dL (11.5-14.8); LYMPHOCYTES # (AUTO) 0.2 K/uL (0.8-4.8); LYMPHOCYTES % (AUTO) 5.3 % (20.0-44.0); MEAN CORPUSCULAR HGB CONC 32 g/dl (31.0-36.0); MEAN CORPUSCULAR VOLUME 95 fL (82-100); MONOCYTES # (AUTO) 0.6 K/uL (0.1-1.30); MONOCYTES % (AUTO) 14.7 % (2.0-12.0); NEUTROPHILS % (AUTO) 74.9 % (43.0-81.0); PLATELET COUNT (AUTO) 116 K/uL (150-450); RED BLOOD CELL COUNT(AUTO) 2.41 MIL/uL (4.0-5.2)
[2022-12-20 08:18] LABS: ALBUMIN 3.3 g/dL (3.4-5.0); BILIRUBIN,TOTAL 0.4 mg/dL (0.2-1.0); CALCIUM, SERUM 7.6 mg/dL (8.5-10.1); CREATININE 9.2 mg/dL (0.6-1.3); POTASSIUM 4.5 mmol/L (3.5-5.1); TOTAL PROTEIN, SERUM 7.4 g/dL (6.4-8.2)
[2022-12-20] MEDS ORDERED: LEVOTHYROXINE SODIUM 25 MCG TABLET PO SCH (10:00)
[2022-12-20] MEDS ORDERED: DICYCLOMINE HCL 10 MG CAPSULE PO PRN (10:00)
[2022-12-20] MEDS ORDERED: MAG HYDROX/AL HYDROX/SIMETH 30 ML UDC PO PRN (10:00)
[2022-12-20] MEDS ORDERED: CALCITRIOL 0.25 MCG CAPSULE PO SCH (10:00)
[2022-12-20] MEDS ORDERED: HYDROCODONE/APAP 5/325MG TABLET PO PRN (10:00)
[2022-12-20] MEDS ORDERED: ACETAMINOPHEN 325 MG TABLET PO PRN (10:00)
[2022-12-20] MEDS ORDERED: MAGNESIUM HYDROXIDE 30 ML UDC PO PRN (10:00)
[2022-12-20] MEDS ORDERED: ASPIRIN 81 MG TAB.CHEW PO SCH (10:00)
[2022-12-20] MEDS ORDERED: TEMAZEPAM 15 MG CAPSULE PO PRN (10:00)
[2022-12-20] MEDS ORDERED: Z GUARD REMEDY 4 OZ OINT TP PRN (10:00)
[2022-12-20] MEDS ORDERED: ONDANSETRON HCL/PF 4 MG/2 ML VIAL IVP PRN (10:00)
[2022-12-20] MEDS ORDERED: LEVOTHYROXINE SODIUM 50 MCG TABLET ONE (10:31)
[2022-12-20] MEDS ORDERED: ASPIRIN 81 MG TAB.CHEW ONE (10:31)
[2022-12-20] MEDS ORDERED: SEVELAMER CARBONATE 800 MG TABLET PO SCH (13:00)
[2022-12-20] MEDS ORDERED: hydrALAZINE HCL 25 MG TABLET PO SCH (13:00)
[2022-12-20] MEDS ORDERED: TOPIRAMATE 100 MG TABLET PO SCH (17:00)
[2022-12-20] MEDS ORDERED: APIXABAN 5 MG TABLET PO SCH (17:00)
[2022-12-20] MEDS ORDERED: CARVEDILOL 6.25 MG TABLET PO SCH (17:00)
[2022-12-20] MEDS ORDERED: diphenhydrAMINE HCL 25 MG CAPSULE PO SCH (21:00)
[2022-12-21] MEDS ORDERED: PANTOPRAZOLE 40 MG TABLET.DR PO SCH ×2 (07:30)
[2022-12-21] MEDS ORDERED: ISOSORBIDE MONONITRATE (30MG) 30 MG TAB.SR.24H PO SCH (09:00)
[2022-12-21] MEDS ORDERED: NIFEdipine XL (30MG) 30 MG TAB PO SCH (09:00)
== END 2022-12-20 12:55 | disposition left against medical advice (07) | DRG 194 ==
LOC: ER 01:09 → TELE 11:47
PROVIDERS: ADMIT Nurse Practitioner Acute Care; ATTEND Nurse Practitioner Acute Care
DX: I13.2 Hypertensive heart and chronic kidney disease with heart failure and with stage 5 chronic kidney disease, or end stage renal disease (principal); J96.20 Acute and chronic respiratory failure, unspecified whether with hypoxia or hypercapnia; K76.6 Portal hypertension; N18.6 End stage renal disease; R18.8 Other ascites; I27.20 Pulmonary hypertension, unspecified; K74.60 Unspecified cirrhosis of liver; I50.9 Heart failure, unspecified; Z99.2 Dependence on renal dialysis; Z91.158 Patient's noncompliance with renal dialysis for other reason; E03.9 Hypothyroidism, unspecified; G89.4 Chronic pain syndrome; Z91.013 Allergy to seafood; Z88.1 Allergy status to other antibiotic agents; Z98.891 History of uterine scar from previous surgery; Z95.828 Presence of other vascular implants and grafts; Z91.048 Other nonmedicinal substance allergy status; Z90.49 Acquired absence of other specified parts of digestive tract; Z86.73 Personal history of transient ischemic attack (TIA), and cerebral infarction without residual deficits; Z86.711 Personal history of pulmonary embolism; K21.9 Gastro-esophageal reflux disease without esophagitis; M81.0 Age-related osteoporosis without current pathological fracture; J44.9 Chronic obstructive pulmonary disease, unspecified; G40.909 Epilepsy, unspecified, not intractable, without status epilepticus; I48.20 Chronic atrial fibrillation, unspecified; Z79.01 Long term (current) use of anticoagulants; Z79.82 Long term (current) use of aspirin; Z79.899 Other long term (current) drug therapy; Z86.718 Personal history of other venous thrombosis and embolism; F32.A Depression, unspecified; Z91.199 Patient's noncompliance with other medical treatment and regimen due to unspecified reason; Z93.0 Tracheostomy status
CPT/HCPCS: 71045-TC; 80053-TC; 85025-TC; 85730-TC; A4623; G0378

== ENCOUNTER 2023-06-22 14:17 | Inpatient (IN) | payer MEDICAID, OTHER ==
[~2023-06-22] VITALS: Ht 165.1 cm; Wt 91.2 kg
[~2023-06-22 14:17] MED LIST changes: +DICY10CA37 PO; +ONDA4TAB5 PO
[2023-06-22 15:20] VITALS: O2SAT 98
[2023-06-22] MEDS ORDERED: FOLI0.8T2 PO (15:40)
[2023-06-22] MEDS ORDERED: SODI10PO PO (15:40)
[2023-06-22] MEDS ORDERED: SEVE0.8P3 PO (15:40)
[2023-06-22] MEDS ORDERED: CHOL100043 PO (15:40)
[2023-06-22] MEDS ORDERED: MONT10TA22 PO (15:40)
[2023-06-22] MEDS ORDERED: OLAN5TAB3 PO (15:40)
[2023-06-22] MEDS ORDERED: LEVO75TA PO (15:40)
[2023-06-22] MEDS ORDERED: FAMO-130 PO (15:40)
[2023-06-22] MEDS ORDERED: SENN-261 PO (15:40)
[2023-06-22] MEDS ORDERED: TOPI25TA49 PO (15:40)
[2023-06-22] MEDS ORDERED: SERT25TA PO (15:40)
[2023-06-22] MEDS ORDERED: ISOS60TA72 PO (15:40)
[2023-06-22] MEDS ORDERED: TRAZ-182 PO (15:40)
[2023-06-22] MEDS ORDERED: BUPR2TAB3 SL (15:40)
[2023-06-22] MEDS ORDERED: HYDR-4209 PO (15:40)
[2023-06-22] MEDS ORDERED: CALC0.253 PO (15:40)
[2023-06-22] MEDS ORDERED: POLY17PO4 PO (15:40)
[2023-06-22] MEDS ORDERED: NALO4SPR NS (15:40)
[2023-06-22] MEDS ORDERED: DICL100G26 TP (15:40)
[2023-06-22] MEDS ORDERED: DILT-32 PO (15:40)
[2023-06-22 16:13] LABS: BASOPHILS # (AUTO) 0.1 K/uL (0.0-0.2); BASOPHILS % (AUTO) 1.6 % (0.0-2.0); EOSINOPHILS # (AUTO) 0.2 K/uL (0.0-0.7); EOSINOPHILS % (AUTO) 5.4 % (0.0-6.0); HEMATOCRIT 22 % (33-45); HEMOGLOBIN 7.3 g/dL (11.5-14.8); LYMPHOCYTES # (AUTO) 0.1 K/uL (0.8-4.8); LYMPHOCYTES % (AUTO) 3.6 % (20.0-44.0); MEAN CORPUSCULAR HEMOGLOBIN 32 PG (26.0-33.0); MEAN CORPUSCULAR HGB CONC 33 g/dl (31.0-36.0); MEAN CORPUSCULAR VOLUME 98 fL (82-100); MONOCYTES # (AUTO) 0.3 K/uL (0.1-1.30); MONOCYTES % (AUTO) 8.1 % (2.0-12.0); NEUTROPHILS # (AUTO) 2.8 K/uL (1.8-8.9); NEUTROPHILS % (AUTO) 81.3 % (43.0-81.0); PLATELET COUNT (AUTO) 100 K/uL (150-450); RED BLOOD CELL COUNT(AUTO) 2.26 MIL/uL (4.0-5.2); RED CELL DISTRIBUTION WIDTH 18.8 % (11.5-15.0); WHITE BLOOD COUNT (AUTO) 3.4 K/uL (4.3-11.0)
[2023-06-22] MEDS ORDERED: MORPHINE SULFATE INJ 4 MG/ML DISP.SYRIN ONE (16:24)
[2023-06-22] MEDS: MORPHINE SULFATE INJ 2 MG/ML DISP.SYRIN IV ONE (16:27)
[2023-06-22 16:30] LABS: ALANINE AMINOTRANSFERASE 14 U/L (12-78); ALBUMIN 3.9 g/dL (3.4-5.0); ALKALINE PHOSPHATASE 140 U/L (46-116); ASPARTATE AMINOTRANSFERASE 18 U/L (15-37); BILIRUBIN,DIRECT 0.2 mg/dL (0.0-0.2); BILIRUBIN,TOTAL 0.4 mg/dL (0.2-1.0); CARBON DIOXIDE 21 mmol/L (21-32); CHLORIDE 99 mmol/L (98-107); GLUCOSE 100 mg/dL (74-106); SODIUM SERUM 138 mmol/L (136-145); TOTAL PROTEIN, SERUM 8.3 g/dL (6.4-8.2)
[2023-06-22 16:32] LABS: LACTIC ACID 1.2 mmol/L (0.4-2.0)
[2023-06-22 16:33] LABS: CREATININE 10.9 mg/dL (0.6-1.3); POTASSIUM 5.7 mmol/L (3.5-5.1); UREA NITROGEN, BLOOD 91 mg/dL (7-18)
[2023-06-22 16:35] LABS: INR 1.2 (0.91-1.10); PARTIAL THROMBOPLASTIN TIME 30.9 SEC (24.3-34.3); PROTHROMBIN TIME 12.6 SECS (9.2-11.1)
[2023-06-22] MEDS ORDERED: ONDANSETRON HCL/PF 4 MG/2 ML VIAL IVP PRN (17:00)
[2023-06-22] MEDS: APIXABAN 5 MG TABLET PO SCH (17:00)
[2023-06-22] MEDS: SODIUM POLYSTYRENE SULF. PWD 15 GM UDC PO ONE (17:00)
[2023-06-22] MEDS ORDERED: Z GUARD REMEDY 4 OZ OINT TP PRN (17:00)
[2023-06-22] MEDS ORDERED: MAG HYDROX/AL HYDROX/SIMETH 30 ML UDC PO PRN (17:00)
[2023-06-22 17:13] LABS: EOSINOPHILS % (MANUAL) 5 % (0-4); LYMPHOCYTES % (MANUAL) 4 % (16-48); MONOCYTES % (MANUAL) 4 % (0-11.0); NEUTROPHILS % (MANUAL) 87 (42-76)
[2023-06-22 17:14] LABS: ANISOCYTOSIS 1+; OVALOCYTES 1+; ROULEAUX 1+
[2023-06-22] MEDS ORDERED: FUROSEMIDE 20 MG/2 ML VIAL ONE ×2 (17:30→17:33)
[2023-06-22] MEDS: FUROSEMIDE 40 MG/4 ML VIAL IV ONE (17:42)
[2023-06-22] MEDS: MORPHINE SULFATE INJ 2 MG/ML DISP.SYRIN IV PRN (20:24)
[2023-06-22 20:30] VITALS: O2SAT 97
[2023-06-22] MEDS: CARVEDILOL 12.5 MG TABLET PO SCH (21:00)
[2023-06-22] MEDS: TRAZODONE 50 MG TABLET PO SCH (23:11)
[2023-06-23] VITALS (11 sets, daily range): BP systolic 143–161; BP diastolic 93–128; TEMP 98.9–99.3; O2SAT 95–100
[2023-06-23] MEDS: TOPIRAMATE 25 MG TABLET PO SCH (01:23)
[2023-06-23] MEDS: OLANZAPINE 5 MG TABLET PO SCH (01:23)
[2023-06-23] MEDS: SEVELAMER CARBONATE 800 MG POWD.PACK PO SCH (01:27)
[2023-06-23] MEDS: MONTELUKAST SODIUM (10MG) 10 MG TABLET PO SCH (01:28)
[2023-06-23 07:09] LABS: BASOPHILS % (AUTO) 0.6 % (0.0-2.0); EOSINOPHILS # (AUTO) 0.2 K/uL (0.0-0.7); EOSINOPHILS % (AUTO) 6.6 % (0.0-6.0); HEMATOCRIT 22 % (33-45); HEMOGLOBIN 7.3 g/dL (11.5-14.8); LYMPHOCYTES # (AUTO) 0.2 K/uL (0.8-4.8); LYMPHOCYTES % (AUTO) 4.6 % (20.0-44.0); MEAN CORPUSCULAR HEMOGLOBIN 33 PG (26.0-33.0); MEAN CORPUSCULAR HGB CONC 33 g/dl (31.0-36.0); MEAN CORPUSCULAR VOLUME 98 fL (82-100); MONOCYTES # (AUTO) 0.4 K/uL (0.1-1.30); MONOCYTES % (AUTO) 10.8 % (2.0-12.0); NEUTROPHILS # (AUTO) 2.8 K/uL (1.8-8.9); NEUTROPHILS % (AUTO) 77.4 % (43.0-81.0); PLATELET COUNT (AUTO) 99 K/uL (150-450); RED BLOOD CELL COUNT(AUTO) 2.24 MIL/uL (4.0-5.2); RED CELL DISTRIBUTION WIDTH 18.4 % (11.5-15.0); WHITE BLOOD COUNT (AUTO) 3.6 K/uL (4.3-11.0)
[2023-06-23 07:34] LABS: ALBUMIN 3.7 g/dL (3.4-5.0); BILIRUBIN,TOTAL 0.4 mg/dL (0.2-1.0); POTASSIUM 5.4 mmol/L (3.5-5.1); TOTAL PROTEIN, SERUM 8.2 g/dL (6.4-8.2)
[2023-06-23 08:17] LABS: CREATININE 8.8 mg/dL (0.6-1.3)
[2023-06-23] MEDS: SEVELAMER CARBONATE 800 MG TABLET PO SCH (08:29)
[2023-06-23] MEDS: BUPRENORPHINE HCL 2 MG TAB.SUBL SL SCH (09:00)
[2023-06-23] MEDS: NIFEdipine XL (30MG) 30 MG TAB PO SCH (09:00)
[2023-06-23] MEDS: LEVOTHYROXINE SODIUM 75 MCG TABLET PO SCH (09:00)
[2023-06-23] MEDS: ISOSORBIDE MONONITRATE (30MG) 30 MG TAB.SR.24H PO SCH (09:00)
[2023-06-23] MEDS: DILTIAZEM HCL CD 120 MG PO SCH (09:00)
[2023-06-23] MEDS: CALCITRIOL 0.25 MCG CAPSULE PO SCH (09:52)
[2023-06-23] MEDS: SERTRALINE HCL 25 MG TABLET PO SCH (09:53)
[2023-06-23 12:32] LABS: ANISOCYTOSIS 1+; EOSINOPHILS % (MANUAL) 3 % (0-4); LYMPHOCYTES % (MANUAL) 7 % (16-48); MONOCYTES % (MANUAL) 13 % (0-11.0); NEUTROPHILS % (MANUAL) 77 (42-76); PLATELET ESTIMATE DECREASED
[2023-06-24] VITALS (12 sets, daily range): BP systolic 150–181; BP diastolic 83–114; TEMP 98.3–100; O2SAT 96–100
[2023-06-24 07:11] LABS: BASOPHILS % (AUTO) 0.2 % (0.0-2.0); EOSINOPHILS # (AUTO) 0.2 K/uL (0.0-0.7); EOSINOPHILS % (AUTO) 3.9 % (0.0-6.0); HEMATOCRIT 21 % (33-45); LYMPHOCYTES # (AUTO) 0.1 K/uL (0.8-4.8); LYMPHOCYTES % (AUTO) 2.3 % (20.0-44.0); MEAN CORPUSCULAR HEMOGLOBIN 32 PG (26.0-33.0); MEAN CORPUSCULAR HGB CONC 34 g/dl (31.0-36.0); MEAN CORPUSCULAR VOLUME 97 fL (82-100); MONOCYTES # (AUTO) 0.5 K/uL (0.1-1.30); MONOCYTES % (AUTO) 9.9 % (2.0-12.0); NEUTROPHILS # (AUTO) 3.8 K/uL (1.8-8.9); NEUTROPHILS % (AUTO) 83.7 % (43.0-81.0); PLATELET COUNT (AUTO) 101 K/uL (150-450); RED BLOOD CELL COUNT(AUTO) 2.17 MIL/uL (4.0-5.2); RED CELL DISTRIBUTION WIDTH 18.4 % (11.5-15.0); WHITE BLOOD COUNT (AUTO) 4.5 K/uL (4.3-11.0)
[2023-06-24 07:30] LABS: CALCIUM, SERUM 8.4 mg/dL (8.5-10.1); PHOSPHORUS 5.8 mg/dL (2.5-4.9); POTASSIUM 5.8 mmol/L (3.5-5.1)
[2023-06-24] MEDS: EPOETIN ALFA (10,000 UNIT) 10,000 UNIT/ML VIAL SQ SCH (15:21)
[2023-06-24] MEDS: diphenhydrAMINE HCL 50 MG/ML VIAL IV PRN (17:05)
[2023-06-24] MEDS: ACETAMINOPHEN 325 MG TABLET PO PRN (22:35)
[2023-06-25] VITALS (13 sets, daily range): BP systolic 132–186; BP diastolic 89–125; TEMP 98.8–99.9; O2SAT 94–99
[2023-06-25 07:37] LABS: BASOPHILS % (AUTO) 0.2 % (0.0-2.0); EOSINOPHILS # (AUTO) 0.1 K/uL (0.0-0.7); EOSINOPHILS % (AUTO) 1.3 % (0.0-6.0); HEMATOCRIT 21 % (33-45); LYMPHOCYTES # (AUTO) 0.1 K/uL (0.8-4.8); LYMPHOCYTES % (AUTO) 1.8 % (20.0-44.0); MEAN CORPUSCULAR HEMOGLOBIN 32 PG (26.0-33.0); MEAN CORPUSCULAR HGB CONC 33 g/dl (31.0-36.0); MEAN CORPUSCULAR VOLUME 97 fL (82-100); MONOCYTES # (AUTO) 0.5 K/uL (0.1-1.30); MONOCYTES % (AUTO) 8.7 % (2.0-12.0); NEUTROPHILS # (AUTO) 4.9 K/uL (1.8-8.9); PLATELET COUNT (AUTO) 98 K/uL (150-450); RED BLOOD CELL COUNT(AUTO) 2.13 MIL/uL (4.0-5.2); RED CELL DISTRIBUTION WIDTH 18.1 % (11.5-15.0); WHITE BLOOD COUNT (AUTO) 5.5 K/uL (4.3-11.0)
[2023-06-25 07:47] LABS: HEMOGLOBIN 6.8 g/dL (11.5-14.8)
[2023-06-25 08:09] LABS: HEPATITIS B CORE AB, IgM Negative (Negative); HEPATITIS B CORE AB, TOTAL Negative (Negative); HEPATITIS B SURFACE AB Reactive (.)
[2023-06-25 09:02] LABS: CALCIUM, SERUM 8.9 mg/dL (8.5-10.1)
[2023-06-25 11:14] LABS: CREATININE 7.6 mg/dL (0.6-1.3)
[2023-06-25] MEDS: MORPHINE SULFATE INJ 2 MG/ML DISP.SYRIN IV PRN (16:12)
[2023-06-25 21:08] LABS: ANISOCYTOSIS 1+; EOSINOPHILS % (MANUAL) 2 % (0-4); LYMPHOCYTES % (MANUAL) 1 % (16-48); MONOCYTES % (MANUAL) 4 % (0-11.0); NEUTROPHILS % (MANUAL) 93 (42-76); PLATELET ESTIMATE DECREASED
[2023-06-25 21:09] LABS: OVALOCYTES 1+
[2023-06-26] VITALS (7 sets, daily range): BP systolic 136–154; BP diastolic 84–102; TEMP 101.5–102.6; O2SAT 92–96
[2023-06-26 07:13] LABS: CALCIUM, SERUM 8.9 mg/dL (8.5-10.1); CREATININE 7.2 mg/dL (0.6-1.3)
[2023-06-26 11:08] LABS: HEPATITIS Be AB Negative (Negative)
[2023-06-26] MEDS: CEFEPIME 1 GM in IV D5W 50 ML IV SCH (11:52)
[2023-06-26 15:18] LABS: OCCULT BLOOD STOOL NEGATIVE (NEGATIVE)
== END 2023-06-26 14:15 | disposition left against medical advice (07) | DRG 425 ==
LOC: ER 14:17 → TELE 17:58
PROVIDERS: ADMIT Nurse Practitioner Acute Care; ATTEND Nurse Practitioner Acute Care
PROC: 5A1D70Z Performance of Urinary Filtration, Intermittent, Less than 6 Hours Per Day (ICD-10-PCS; principal; 2023-06-22)
DX: E87.70 Fluid overload, unspecified (principal); J96.21 Acute and chronic respiratory failure with hypoxia; D61.818 Other pancytopenia; I13.2 Hypertensive heart and chronic kidney disease with heart failure and with stage 5 chronic kidney disease, or end stage renal disease; I27.20 Pulmonary hypertension, unspecified; N18.6 End stage renal disease; D63.1 Anemia in chronic kidney disease; E66.2 Morbid (severe) obesity with alveolar hypoventilation; I48.20 Chronic atrial fibrillation, unspecified; J90 Pleural effusion, not elsewhere classified; K74.60 Unspecified cirrhosis of liver; I50.9 Heart failure, unspecified; G40.909 Epilepsy, unspecified, not intractable, without status epilepticus; Z68.33 Body mass index [BMI] 33.0-33.9, adult; Z20.822 Contact with and (suspected) exposure to COVID-19; G43.909 Migraine, unspecified, not intractable, without status migrainosus; Z90.49 Acquired absence of other specified parts of digestive tract; Z88.1 Allergy status to other antibiotic agents; Z91.041 Radiographic dye allergy status; Z88.8 Allergy status to other drugs, medicaments and biological substances; Z91.018 Allergy to other foods; Z86.711 Personal history of pulmonary embolism; M81.0 Age-related osteoporosis without current pathological fracture; E03.9 Hypothyroidism, unspecified; G89.4 Chronic pain syndrome; Z91.013 Allergy to seafood; Z91.048 Other nonmedicinal substance allergy status; Z79.890 Hormone replacement therapy; Z79.01 Long term (current) use of anticoagulants; Z79.899 Other long term (current) drug therapy; E87.5 Hyperkalemia; Z93.0 Tracheostomy status; Z91.199 Patient's noncompliance with other medical treatment and regimen due to unspecified reason; N18.9 Chronic kidney disease, unspecified; Z95.828 Presence of other vascular implants and grafts; Z86.73 Personal history of transient ischemic attack (TIA), and cerebral infarction without residual deficits; Z99.2 Dependence on renal dialysis; Z86.718 Personal history of other venous thrombosis and embolism; J44.9 Chronic obstructive pulmonary disease, unspecified
CPT/HCPCS: 31720; 36415; 71045-TC; 80048-TC; 80053-TC; 80076-TC; 82272-TC; 83605-TC; 84100-TC; 84484-TC; 85025-TC; 85730-TC; 86704; 86705; 86706; 86707; 86803; 86850-TC; 87040-TC; 87186-TC; 90935-TC; 94799-TC; A4223; G0378; J0692; J0885; J1200; J1940; J2270; J7030; J7050; J7060; P9016